=== PATIENT | female | born 1955 | race Caucasian/White ===

== ENCOUNTER 2018-02-01 02:19 | Inpatient (IN) | payer SELFPAY ==
[~2018-02-01] VITALS: Ht 157.5 cm; Wt 91.6 kg
[2018-02-01] VITALS (34 sets, daily range): BP systolic 81–198; BP diastolic 40–114
[2018-02-01] MEDS ORDERED: HEParin DRIP 25000 UNIT/500ML 500 ML IV SCH (03:29)
[2018-02-01 03:53] LABS: BASOPHILS % (AUTO) 0 % (0-10); EOSINOPHILS # (AUTO) 0.2 10^3/uL (0.0-0.3); EOSINOPHILS % (AUTO) 3 % (0-10); HEMATOCRIT 38 % (35-52); HEMOGLOBIN 13.3 G/DL (11.5-16.0); LYMPHOCYTES # (AUTO) 1.3 X 10^3 (1.0-4.0); LYMPHOCYTES % (AUTO) 16 % (12-44); MEAN CORPUSCULAR HEMOGLOBIN 32 PG (25-34); MEAN CORPUSCULAR HGB CONC 35 G/DL (32-36); MEAN CORPUSCULAR VOLUME 91 FL (80-99); MEAN PLATELET VOLUME 10.6 FL (7.4-10.4); MONOCYTES # (AUTO) 0.7 X 10^3 (0.0-1.0); MONOCYTES % (AUTO) 8 % (0-12); NEUTROPHILS # (AUTO) 6.2 X 10^3 (1.8-7.8); NEUTROPHILS % (AUTO) 74 % (42-75); PLATELET COUNT 104 10^3/uL (130-400); RED BLOOD COUNT 4.22 10^6/uL (4.35-5.85); RED CELL DISTRIBUTION WIDTH 13.5 % (10.0-14.5); WHITE BLOOD COUNT 8.4 10^3/uL (4.3-11.0)
[2018-02-01 04:18] LABS: BUN/CREATININE RATIO 21; CALCIUM 8.7 MG/DL (8.5-10.1); CARBON DIOXIDE 19 MMOL/L (21-32); CHLORIDE 109 MMOL/L (98-107); CREATININE SERUM 1.31 MG/DL (0.60-1.30); GFR ESTIMATED 41; GLUCOSE 155 MG/DL (70-105); MAGNESIUM 1.9 MG/DL (1.8-2.4); PHOSPHORUS 3.7 MG/DL (2.3-4.7); POTASSIUM 3.8 MMOL/L (3.6-5.0); SODIUM 140 MMOL/L (135-145)
[2018-02-01] MEDS ORDERED: LABETALOL HCL 20 MG/4 ML VIAL IV ONE (04:35)
--- NOTE | 2018-02-01 05:44 | Pulmonary Consultation ---
History of Present Illness History of Present Illness Date of Consultation 02/01/18 05:33 Date of Admission Allergies and Home Medications Allergies Coded Allergies: No Known Drug Allergies (Unverified , 02/01/18) Past Aqkbmyp-Bchird-Xexbru Hx Patient Social History Alcohol Use: Denies Use Recreational Drug Use: No Smoking Status: Current Everyday Smoker Type Used: Cigarettes Recent Foreign Travel: No Contact w/Someone Who Travel: No Recent Infectious Disease Expo: No Recent Hopitalizations: No Immunizations Up To Date Date of Pneumonia Vaccine: Mar 09, 2016 Seasonal Allergies Seasonal Allergies: No Past Medical History Surgeries: Yes Respiratory: No Neurological: No Sexually Transmitted Disease: No HIV/AIDS: No Genitourinary: No Gastrointestinal: No Musculoskeletal: No Endocrine: Yes (TYPE 2 DM) Are Your Blood Sugars Over 250: Yes HEENT: No Cancer: No Psychosocial: No Integumentary: Yes Psoriasis Blood Disorders: No Adverse Reaction/Blood Tranf: No Sepsis Event Evaluation Height, Weight, BMI Height: 5'2.00" Weight: 185lbs. 0.0oz. 83.107072fx; 33.8 BMI Method: Exam Exam Vital Signs Date Time Temp Pulse Resp B/P (MAP) Pulse Ox O2 Delivery O2 Flow Rate FiO2 02/01/18 04:45 81 28 143/96 (112) 96 Nasal Cannula 2.00 02/01/18 04:30 94 32 198/101 (133) 96 Nasal Cannula 2.00 02/01/18 04:15 94 24 189/100 (129) 96 Nasal Cannula 2.00 02/01/18 04:10 96 Nasal Cannula 2.00 02/01/18 04:00 96 Nasal Cannula 2.00 02/01/18 04:00 92 27 182/114 (136) 97 Nasal Cannula 2.00 02/01/18 03:45 93 20 178/92 (120) 97 Nasal Cannula 2.00 02/01/18 03:30 93 28 183/102 (129) 96 Nasal Cannula 2.00 02/01/18 03:24 97.8 02/01/18 03:18 93 18 178/108 (131) 97 Nasal Cannula 2.00 02/01/18 03:15 95 Height & Weight Height: 5'2.00" Weight: 185lbs. 0.0oz. 83.721365wd; 33.8 BMI Method: Results Lab Laboratory Tests 02/01/18 03:43 Assessment/Plan Assessment/Plan CP -Transferred here from [facility] -Troponin here is negative ordered x 3 HTN -s/p Labetalol CAD with hx of [place] Tobacco use WIL BARTON DO Feb 01, 2018 05:44
[2018-02-01 06:13] LABS: CHOLESTEROL 185 MG/DL (< 200); HDL CHOLESTEROL 35 MG/DL (40-60); TRIGLYCERIDES 182 MG/DL (<150); VLDL CHOLESTEROL 36 MG/DL (5-40)
[2018-02-01] MEDS ORDERED: FLU QUADRIvalent (5+ YOA) 2018-2019 (AFLURIA) 0.5 ML IM ONE (07:00)
[2018-02-01] MEDS ORDERED: CATHETER FLUSH 10 ML SYR IV PRN (07:00)
[2018-02-01] MEDS ORDERED: NITROGLYCERIN 0.4 MG SL TABS BTL 25'S SL PRN (07:00)
--- NOTE | 2018-02-01 07:46 | Diagnostic Imaging Report ---
INDICATION: Myocardial infarction. Upright portable AP view of the chest is obtained. There is no previous study available at this time for comparison. FINDINGS: There is mild cardiomegaly and pulmonary venous congestion. Interstitial markings are prominent throughout the lungs. There is no evidence of pneumothorax or significant pleural fluid. IMPRESSION: Cardiomegaly and mild pulmonary venous congestion. Prominent interstitial markings could be acute or chronic. This may represent interstitial edema in setting of recent myocardial infarction and radiographic followup would be of use. Dictated by: Dictated on workstation # [id number]
[2018-02-01] MEDS: POTASSIUM CL 10MEQ/50ML IVPB 50 ML IV SCH (07:54)
[2018-02-01] MEDS: KCL 20 MEQ TAB (K-DUR) PO SCH (07:54)
[2018-02-01] MEDS: MAGNESIUM 1 GM/100 ML IVPB 100 ML IV SCH (07:54)
[2018-02-01] MEDS: inSUlin ASPART (NovoLOG) 1 UNIT/0.01 ML (CHARGE PER UNIT) SC SCH ×3 (07:55→17:46)
[2018-02-01] MEDS ORDERED: LORazepam 1 MG (ATIVAN) TAB ONE (08:56)
[2018-02-01] MEDS ORDERED: LORazepam 1 MG (ATIVAN) TAB PO ONE (09:00)
[2018-02-01 09:15] LABS: AMPHETAMINE SCREEN, URINE NEGATIVE (NEGATIVE); BARBITURATE SCREEN URINE NEGATIVE (NEGATIVE); BENZODIAZEPINES SCREEN URINE NEGATIVE (NEGATIVE); CANNABINOID SCREEN, URINE NEGATIVE (NEGATIVE); COCAINE SCREEN URINE NEGATIVE (NEGATIVE); METHADONE STAT NEGATIVE (NEGATIVE); METHAMPHETAMINE SCREEN URINE S NEGATIVE (NEGATIVE); OPIATE SCREEN URINE NEGATIVE (NEGATIVE); OXYCODONE STAT NEGATIVE (NEGATIVE); PROPOXYPHENE STAT NEGATIVE (NEGATIVE); TRICYCLIC ANTIDEPRESSANTS SCRE POSITIVE (NEGATIVE)
[2018-02-01] MEDS ORDERED: LOVA20TA2 PO (09:23)
[2018-02-01] MEDS ORDERED: FURO40TA4 PO (09:23)
[2018-02-01] MEDS ORDERED: LEVO88TA54 PO (09:23)
[2018-02-01] MEDS ORDERED: ISM60TCR PO (09:23)
[2018-02-01] MEDS ORDERED: EUCA1LOZ28 MM (09:32)
[2018-02-01] MEDS ORDERED: METO-370 PO (09:32)
[2018-02-01] MEDS ORDERED: OMG1KC PO (09:32)
[2018-02-01] MEDS ORDERED: NFBIOT1000 PO (09:32)
[2018-02-01] MEDS ORDERED: CALC-6 PO (09:32)
[2018-02-01] MEDS ORDERED: AMIT100T2 PO (09:32)
[2018-02-01] MEDS ORDERED: LISI-552 PO (09:32)
[2018-02-01] MEDS ORDERED: POTA10TA36 PO (09:43)
[2018-02-01] MEDS ORDERED: GABA-486 PO (09:43)
[2018-02-01] MEDS ORDERED: INSU100I10 SQ (09:44)
[2018-02-01] MEDS ORDERED: METF-399 PO (09:44)
[2018-02-01] MEDS ORDERED: INSU100I23 SQ (09:49)
--- NOTE | 2018-02-01 10:34 | Consultation-Cardiology ---
HPI-Cardiology Cardiology Consultation: Date of Consultation 02/01/18 Date of Admission Attending Physician Blake Paul MD Admitting Physician Sarah,Local Physician Consulting Physician Jd MERINO MD HPI: Time Seen by a Provider: 08:10 Chief Complaint: Chest pain, shortness of breath This is a 62-year-old lady who presented to [facility] with complains of chest pain. She has significant history of active smoking, diabetes, hyperlipidemia. She also has history of COPD. She also complained of resting discomfort in both lower extremities. According to the patient she is had previous history of TX but no stents were placed. She had a prolonged episode of chest pain. Substernal. Moderate intensity. No significant radiation. No significant exacerbating or relieving factors. She is also significantly short of breath and restless. Review of Systems-Cardiology Review of Systems Constitutional: As described under HPI; No As described under HPI, No no symptoms reported, No chills, No fever, No lightheadedness Eyes: No As described under HPI, No no symptoms reported, No blindness, No blurred vision, No contact lenses, No drainage, No decreased acuity, No foreign body sensation, No pain, No vision change Ears/Nose/Throat: No As described under HPI, No no symptoms reported, No chronic hearing loss, No ear discharge, No ear pain, No nasal drainage, No ulcerations Respiratory: No no symptoms reported; As described under HPI; No As described under HPI, No cough, No orthopnea; shortness of breath; No SOB with excertion Cardiovascular: No no symptoms reported; As described under HPI; No As described under HPI; chest pain; No edema, No irregular heart rate, No lightheadedness, No palpitations Gastrointestinal: No no symptoms reported, No As described under HPI, No abdomen distended, No abdominal pain, No blood streaked bowels, No constipation , No diarrhea, No nausea, No vomiting, No stool coloration changes Genitourinary: No As described under HPI, No burning, No dysuria, No discharge , No frequency, No flank pain, No hematuria, No urgency : Yes : No Musculoskeletal: No no symptoms reported, No As describe under HPI, No back pain, No gout, No joint pain, No joint swelling, No muscle pain, No muscle stiffness, No neck pain, No other Skin: No no symptoms reported, No As described under HPI, No change in color, No change in hair/nails, No dryness, No lesions, No lumps, No rash, No other, No skin related problems, No ulcerations, No rash on exposed areas, No ulcerations on exposed areas Psychiatric/Neurological: As described under HPI; No anxiety, No depression, No seizure, No focal weakness, No syncope Hematologic: No bleeding abnormalities FWJ-Ncfoom-Rnlacq Hx Patient Social History Alcohol Use: Denies Use Recreational Drug Use: No Smoking Status: Current Everyday Smoker Type Used: Cigarettes Recent Foreign Travel: No Recent Infectious Disease Expo: No Physical Abuse Screen: No Sexual Abuse: No Immunizations Up To Date Date of Pneumonia Vaccine: Mar 09, 2016 Past Medical History PMH As described under Assessment. Allergies and Home Medications Allergies Coded Allergies: No Known Drug Allergies (Unverified , 02/01/18) Home Medications Amitriptyline HCl 100 Mg Tablet, 100 MG PO HS, (Reported) Biotin 1,000 Mcg Tablet, 1,000 MCG PO DAILY, (Reported) Calcium Carbonate/Vitamin D3 1 Each Tablet, 1 TAB PO DAILY, (Reported) Eucalyptus/Menthol 1 Each Lozenge, 1 ELVA MM Q2H PRN for COUGH, (Reported) Furosemide 40 Mg Tablet, 40 MG PO DAILY, (Reported) LAST FILLED #30 09-14-17 Gabapentin 100 Mg Capsule, 300 MG PO DAILY PRN for NERVE PAIN, (Reported) Insulin Glargine,Hum.rec.anlog 100 Unit/1 Ml Insuln.pen, 40 UNIT SQ BID, ( Reported) Insulin Lispro 100 Unit/1 Ml Insuln.pen, 40 UNIT SQ AC, (Reported) Isosorbide Mononitrate 60 Mg Tab, 60 MG PO DAILY, (Reported) Levothyroxine Sodium 88 Mcg Tablet, 88 MCG PO DAILY, (Reported) Lisinopril 20 Mg Tablet, 20 MG PO DAILY, (Reported) Lovastatin 20 Mg Tablet, 20 MG PO HS, (Reported) Metoprolol Succinate 50 Mg Tab.er.24h, 50 MG PO BID, (Reported) Wampum 3 Polyunsat Fatty Acids 1,000 Mg Cap, 1,000 MG PO DAILY, (Reported) Potassium Chloride 10 Meq Tab.er.prt, 10 MEQ PO DAILY, (Reported) LAST FILLED #30 09-07-17 Patient Home Medication List Home Medication List Reviewed: Yes Physical Exam-Cardiology Physical Exam Vital Signs/I&O 02/01/18 02/01/18 02/01/18 02/01/18 07:00 07:00 08:00 08:00 Pulse 88 89 93 Resp 21 15 B/P (MAP) 197/106 (136) 181/102 (128) Pulse Ox 91 90 93 O2 Delivery Nasal Cannula Nasal Cannula Nasal Cannula O2 Flow Rate 2.00 2.00 2.00 02/01/18 02/01/18 02/01/18 02/01/18 08:29 09:00 10:00 10:20 Temp 97.3 Pulse 93 93 73 Resp 21 21 28 B/P (MAP) 195/111 (139) 195/111 (139) Pulse Ox 93 97 O2 Delivery Nasal Cannula Nasal Cannula Nasal Cannula O2 Flow Rate 2.00 2.00 2.00 40.00 02/01/18 02/01/18 02/01/18 02/01/18 10:31 11:00 12:00 12:00 Pulse 101 96 Resp 28 27 B/P (MAP) 181/92 (121) 170/78 (108) Pulse Ox 98 O2 Delivery NIV Bilevel NIV Bilevel NIV Bilevel NIV Bilevel O2 Flow Rate 40.00 40.00 40.00 40.00 02/01/18 02/01/18 02/01/18 02/01/18 12:01 13:00 13:00 13:27 Temp 97.7 Pulse 90 91 88 Resp 28 22 B/P (MAP) 147/75 (99) Pulse Ox 97 O2 Delivery NIV Bilevel O2 Flow Rate 40.00 40.00 02/01/18 02/01/18 02/01/18 02/01/18 13:47 14:00 14:47 15:00 Temp 96.8 Pulse 87 79 79 Resp 17 21 20 B/P (MAP) 152/78 (102) 133/61 (85) Pulse Ox 98 100 O2 Delivery NIV Bilevel NIV Bilevel NIV Bilevel O2 Flow Rate 40.00 40.00 40.00 40.00 02/01/18 02/01/18 02/01/18 16:00 16:13 16:15 Pulse 82 87 Resp 17 16 B/P (MAP) 133/71 (91) Pulse Ox 98 100 O2 Delivery NIV Bilevel Mechanical Ventilator O2 Flow Rate 40.00 80.00 FiO2 80 Capillary Refill : Constitutional: AAO x 3, apparent distress HEENT: No PERRL, No normal ENT inspection, No TMs normal, No pharynx normal, No scleral icterus (R), No scleral icterus (L), No pale conjunctivae (R), No pale conjunctivae (L), No photophobia, No TM abnormal (R), No TM abnormal (L), No pharyngeal erythema, No tonsillar exudate, No other, No discharge, No EOMI, No hearing is well preserved, No hard of hearing, No oral hygience is good, No ulceration, No xanthelasmas are seen Neck: No non-tender, No full range of motion, No supple, No normal inspection, No carotid bruit, No limited range of motion, No lymphadenopathy (R), No lymphadenopathy (L), No tender lateral, No tender midline, No thyromegaly, No other, No carotid pulses are 2 + bilaterally, No with good upstrokes Respiratory: accessory muscle use, chest is bilaterally symmetric, other ( decreased air entry bilaterally) Cardiovascular: regular rate-rhythm; No irregularly irregular, No extra beats, No parasternal heave is noted, No JVD, No edema, No bradycardia, No tachycardia , No point of maximal impulse, No cardiac thrills are palpable; S1 and S2; No gallop/S3, No gallop/S4, No diastolic murmur, No systolic murmur, No friction rub, No click, No other Gastrointestinal: No tender, No soft, No round, No distended, No pulsatile mass , No organomegaly, No guarding, No rebound, No tenderness, No hernia, No mass, No audible bowel sounds, No abnormal bowel sounds, No abdominal bruits, No spleenomegaly, No other Rectal: deferred Extremities: No normal range of motion, No non-tender, No normal inspection, No pedal edema, No calf tenderness, No normal capillary refill, No pelvis stable , No calf tenderness, No inflammation, No pedal edema, No slow capillary refill , No swelling, No other, No abrasion, No clubbing, No cyanosis, No ecchymosis, No laceration, No no lower extremity edema bilateral, No significant edema, No tenderness, No wound Neurologic/Psychiatric: no motor/sensory deficits, alert, normal mood/affect Skin: No normal color, No warm/dry, No cyanosis, No cool, No diaphoresis, No damp, No ecchymosis, No jaundice, No mottled, No pallor, No rash, No tattoos/ piercings, No ulcerations, No rash on exposed areas, No ulcerations on exposed areas, No other Data Review Labs Laboratory Tests 02/01/18 03:43: White Blood Count 8.4, Red Blood Count 4.22L, Hemoglobin 13.3, Hematocrit 38, Mean Corpuscular Volume 91, Mean Corpuscular Hemoglobin 32, Mean Corpuscular Hemoglobin Concent 35, Red Cell Distribution Width 13.5, Platelet Count 104L, Mean Platelet Volume 10.6H, Neutrophils (%) (Auto) 74, Lymphocytes (%) (Auto) 16 , Monocytes (%) (Auto) 8, Eosinophils (%) (Auto) 3, Basophils (%) (Auto) 0, Neutrophils # (Auto) 6.2, Lymphocytes # (Auto) 1.3, Monocytes # (Auto) 0.7, Eosinophils # (Auto) 0.2, Basophils # (Auto) 0.0, Sodium Level 140, Potassium Level 3.8, Chloride Level 109H, Carbon Dioxide Level 19L, Anion Gap 12, Blood Urea Nitrogen 28H, Creatinine 1.31H, Estimat Glomerular Filtration Rate 41, BUN/ Creatinine Ratio 21, Glucose Level 155H, Calcium Level 8.7, Phosphorus Level 3.7 , Magnesium Level 1.9, Troponin I < 0.30, Triglycerides Level 182H, Cholesterol Level 185, LDL Cholesterol Direct 127, VLDL Cholesterol 36, HDL Cholesterol 35L 02/01/18 06:47: Activated Partial Thromboplast Time 77H 02/01/18 07:40: Urine Opiates Screen NEGATIVE, Urine Oxycodone Screen NEGATIVE, Urine Methadone Screen NEGATIVE, Urine Propoxyphene Screen NEGATIVE, Urine Barbiturates Screen NEGATIVE, Ur Tricyclic Antidepressants Screen POSITIVEH, Urine Phencyclidine Screen NEGATIVE, Urine Amphetamines Screen NEGATIVE, Urine Methamphetamines Screen NEGATIVE, Urine Benzodiazepines Screen NEGATIVE, Urine Cocaine Screen NEGATIVE, Urine Cannabinoids Screen NEGATIVE 02/01/18 11:13: Glucometer 295H 02/01/18 12:55: Activated Partial Thromboplast Time 46H, Troponin I 0.31*H 02/01/18 16:45: White Blood Count 10.0, Red Blood Count 3.95L, Hemoglobin 12.5, Hematocrit 37, Mean Corpuscular Volume 93, Mean Corpuscular Hemoglobin 32, Mean Corpuscular Hemoglobin Concent 34, Red Cell Distribution Width 13.5, Platelet Count 111L, Mean Platelet Volume 10.9H, Neutrophils (%) (Auto) 89H, Lymphocytes (%) (Auto) 6L, Monocytes (%) (Auto) 5, Eosinophils (%) (Auto) 0, Basophils (%) (Auto) 0, Neutrophils # (Auto) 8.9H, Lymphocytes # (Auto) 0.6L, Monocytes # (Auto) 0.5, Eosinophils # (Auto) 0.0, Basophils # (Auto) 0.0, Neutrophils % (Manual) 86, Lymphocytes % (Manual) 9, Monocytes % (Manual) 4, Eosinophils % (Manual) 1, Basophils % (Manual) 0, Band Neutrophils 0, Blood Morphology Comment NORMAL, Sodium Level 139, Potassium Level 4.6, Chloride Level 110H, Carbon Dioxide Level 20L, Anion Gap 9, Blood Urea Nitrogen 26H, Creatinine 1.27, Estimat Glomerular Filtration Rate 43, BUN/Creatinine Ratio 20, Glucose Level 205H, Calcium Level 8.0L, Corrected Calcium 8.6, Total Bilirubin 0.4, Aspartate Amino Transf (AST/SGOT) 18, Alanine Aminotransferase (ALT/SGPT) 14, Alkaline Phosphatase 64, Total Protein 6.3L, Albumin 3.2 ECG Impression ECG Initial ECG Rhythm: Normal Sinus Comment Widespread ST depression. A/P-Cardiology Assessment/Admission Diagnosis Non-STEMI, Acute respiratory failure, Severe COPD, Previous history of CAD/TX, Smoking, Hypertension, Hyperlipidemia, Severe PAD Plan Non-STEMI, will require coronary angiography. Informed consent was taken from the patient and daughter. Continue aspirin, Plavix, heparin. Acute respiratory failure, likely due to severe COPD. Check echocardiogram. Severe COPD, defer to Dr. Guillory. Previous history of CAD/TX, dual antiplatelet therapy. Smoking, CESSATION was strongly recommended. Hypertension, Hyperlipidemia, Severe PAD, bilateral lower extremity arterial ultrasound. Critical patient. Total time taken 30 minutes. Thank you for your consultation. Please call me if you have any questions. Xi Merino MD, FACP, FACC, FSCAI, FHRS, CCDS Interventional Cardiology Cardiac Electrophysiology Vascular Medicine and Endovascular Interventions Clinical Quality Measures DVT/VTE Risk/Contraindication: Risk Factor Score Per Nursin RFS Level Per Nursing on Admit: 2=Moderate Jd MERINO MD Feb 01, 2018 10:34 am
--- NOTE | 2018-02-01 10:47 | History & Physical-Hospitalist ---
History of Present Illness HPI/Chief Complaint The patient is a 62-year-old white female. 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 Her daughter states that she has chest pain and a history of heart disease. She took 3 nitroglycerin and then went to bed. At about 0000 hours she checked on her and found her to be confused. She then called the ambulance and sent her here. She states that her mother has no insurance and has not had regular medical attention. She states that her mother has not had much energy for life since her about 10 years ago. She has diabetes, hypertension, strong family history of cardiac disease, and smokes a pack or more of cigarettes per day. The daughter states that her mother has had episodes of relative confusion at intervals over the past year. In addition she has had multiple falls and exhibits poor balance and coordination. This morning when she checked on her while in bed is clearly confused and tried to eat a remote which she apparently thought to be a cookie. Date Seen 02/01/18 Time Seen by a Provider: 10:42 Attending Physician Blake Garcia MD PCP No,Local Physician Referring Physician Date of Admission Feb 01, 2018 at 03:07 Home Medications & Allergies Home Medications Reviewed patient Home Medication Reconciliation performed by pharmacy medication reconciliations testing and regulating technician and/or nursing. Patients Allergies have been reviewed. Allergies Allergies Coded Allergies No Known Drug Allergies ([id number]/26/18) Past Lzlozbp-Nbpjuq-Pivjic Hx Patient Social History Alcohol Use: Denies Use Recreational Drug Use: No Smoking Status: Current Everyday Smoker Type Used: Cigarettes Physical Abuse Screen: No Sexual Abuse: No Recent Foreign Travel: No Contact w/other who traveled: No Recent Hopitalizations: No Recent Infectious Disease Expo: No Immunizations Up To Date Date of Pneumonia Vaccine: Mar 09, 2016 Seasonal Allergies Seasonal Allergies: No Past Medical History Sexually Transmitted Disease: No HIV/AIDS: No Are Your Blood Sugars Over 250: Yes Skin/Integumentary: Psoriasis History of Blood Disorders: No Adverse Reaction to Blood Umanzor: No Review of Systems Constitutional: see HPI, other (the patient moves all extremities but did not answer any questions.) Physical Exam Physical Exam Vital Signs Vital Signs - First Documented 02/01/18 02/01/18 02/01/18 03:15 03:18 03:24 Temp 97.8 Pulse 95 Resp 18 B/P (MAP) 178/108 (131) Pulse Ox 97 O2 Delivery Nasal Cannula O2 Flow Rate 2.00 Capillary Refill : Height, Weight, BMI Height: 5'2.00" Weight: 186lbs. 0.0oz. 84.778077hq; 33.8 BMI Method: General Appearance: Other Eyes: Bilateral Eye Normal Inspection, Bilateral Eye PERRL HEENT: Normal ENT Inspection Neck: Normal Inspection Respiratory: Chest Non Tender, Lungs Clear, Normal Breath Sounds, No Accessory Muscle Use, No Respiratory Distress Cardiovascular: Regular Rate, Rhythm, No Edema, No Gallop, No JVD, No Murmur, Normal Peripheral Pulses Gastrointestinal: Other (obese. No masses or tenderness) Back: Normal Inspection Extremity: Other Results Results/Procedures Labs Laboratory Tests 02/01/18 03:43 Patient resulted labs reviewed. Clinical Quality Measures DVT/VTE Risk/Contraindication: Risk Factor Score Per Nursin RFS Level Per Nursing on Admit: 2=Moderate BLAKE GARCIA MD Feb 01, 2018 10:47
--- NOTE | 2018-02-01 12:14 | Diagnostic Imaging Report ---
PROCEDURE: US Venous Lower Ext John. TECHNIQUE: Multiple real-time grayscale images were obtained over the lower extremities in various projections, bilaterally. Additional duplex Doppler and color Doppler images were also obtained. INDICATION: Lower extremity mottling. FINDINGS: There is no evidence of a right or left lower extremity DVT. Both lower extremity deep venous systems show normal compressibility with normal response to augmentation and Valsalva. No fluid collection or mass is seen. IMPRESSION: No evidence of right or left lower extremity DVT. Dictated by: Dictated on workstation # [id number]
--- NOTE | 2018-02-01 13:42 | Diagnostic Imaging Report ---
PROCEDURE: US Bilateral lower extremity arterial. TECHNIQUE: Multiple Real-time grayscale images are obtained through both lower extremity arterial systems with color Doppler imaging and color Doppler spectral analysis. INDICATION: Mottled lower extremities. FINDINGS: Both common femoral arteries are patent and show biphasic waveforms. Biphasic waveforms in the deep profunda are seen bilaterally as well. The proximal left SFA is monophasic with dampened velocities. There is occlusion in the left proximal to mid SFA extending 7-8 cm. There appears to be reconstitution distally with monophasic flow in the distal left SFA and popliteal. There is monophasic flow in the posterior tibial and dorsalis pedis arteries as well on the left. On the right, the proximal SFA is occluded. There is reconstitution distally with biphasic waveforms. There are monophasic waveforms in the popliteal. The occlusion extends approximately 15 cm on the right. There are monophasic waveforms and dampened velocities in the right posterior tibial and dorsalis pedis. IMPRESSION: Bilateral SFA occlusions with reconstitution distally. There are some dampened velocities at the ankles bilaterally with monophasic waveforms but there does appear to be two-vessel flow bilaterally at the ankles. Dictated by: Dictated on workstation # [id number]
[2018-02-01] MEDS ORDERED: HALOPERIDOL 5 MG/ML (HALDOL) AMP IV PRN (15:15)
[2018-02-01] MEDS ORDERED: PROPOFOL DRIP (ICU) 100 ML IV ONE ×2 (15:28→18:30)
[2018-02-01] MEDS ORDERED: MIDAZOLAM 5 MG/5 ML (VERSED) VIAL INJ ONE (15:37)
[2018-02-01] MEDS ORDERED: fentaNYL INJECTION 100 MCG/2 ML AMP INJ ONE (15:37)
--- NOTE | 2018-02-01 15:37 | Pulmonary Progress Note ---
Standard Progress Note Progress Notes Time Seen by Provider: 15:29 I was called by Dr. Merino about patients respiratory status. He discussed with family and they are okay with short term ventilation but not snf ventilation. I also discussed with patient's family with RN at bedside and they are in agreement with short term ventilation only. RT has not been able to get an ABG secondary to patient's agitation. Assessment & Plan Acute on chronic respiratory failure -Currently on BiPAP - pt is not able to answer questions -unresponsive except to heavy stimulation probably secondary to Ativan and probable C02 narcosis -will proceed with intubation CP -Transferred here from [facility] -Troponin here is negative ordered x 3 -Dr. Merino will do cath tomorrow if patient is medically stable enough for it. PVD -venous and arterial dopplers of LE bilaterally show complete occlusion of the SFA bilaterally. -Cardiology is following HTN -s/p Labetalol CAD with hx of [place] Tobacco use Discussed with Dr. Merino, Dr. Paul, medical staff, and family regarding plan of care. Total time spent with patient not including procedures or initial consult this AM is 60min. Critical Care: Critically Ill Patient WIL BARTON DO Feb 01, 2018 15:37
[2018-02-01] MEDS ORDERED: NS IV 1000 ML 1,000 ML ONE (15:43)
[2018-02-01] MEDS ORDERED: RT-ALBUTEROL/IPRATROPIUM 3 ML (DUONEB) VIAL INH PRN (16:45)
[2018-02-01] MEDS ORDERED: PIPERACILLIN/TAZO 4.5 GM/NS 100 ML IV NR ×2 (16:45)
--- NOTE | 2018-02-01 16:57 | Pulmonary Procedures ---
Pulmonary Procedures Date of Procedure Date of Service: Feb 01, 2018 Lumen: triple (US guided ) Central Line Procedure: betadine prep, sterile drapes applied, sterile dressing applied Position: internal jugular (R) Anesthesia: local Volume Anesthetic (ccs): 5 Complications: none Post Position: sutured, good blood return, position confirmed w/ CXR WIL BARTON DO Feb 01, 2018 16:57
--- NOTE | 2018-02-01 17:00 | Pulmonary Procedures ---
Pulmonary Procedures Date of Procedure Date of Service: Feb 01, 2018 Time of Intubation: 16:59 Intubation Method: orotracheal Tube Size: 8 Medications: Fentanyl, Propofol, Versed Positive End Tide CO2: Yes Breath Sounds after Intubation: bilateral-equal Intubation Complications: no complications Post Intubation Xray: Yes (with Glidoscope) WIL BARTON DO Feb 01, 2018 16:59
[2018-02-01 17:05] LABS: BASOPHILS % (AUTO) 0 % (0-10); EOSINOPHILS % (AUTO) 0 % (0-10); HEMATOCRIT 37 % (35-52); HEMOGLOBIN 12.5 G/DL (11.5-16.0); LYMPHOCYTES # (AUTO) 0.6 X 10^3 (1.0-4.0); LYMPHOCYTES % (AUTO) 6 % (12-44); MEAN CORPUSCULAR HEMOGLOBIN 32 PG (25-34); MEAN CORPUSCULAR HGB CONC 34 G/DL (32-36); MEAN CORPUSCULAR VOLUME 93 FL (80-99); MEAN PLATELET VOLUME 10.9 FL (7.4-10.4); MONOCYTES # (AUTO) 0.5 X 10^3 (0.0-1.0); MONOCYTES % (AUTO) 5 % (0-12); NEUTROPHILS # (AUTO) 8.9 X 10^3 (1.8-7.8); NEUTROPHILS % (AUTO) 89 % (42-75); PLATELET COUNT 111 10^3/uL (130-400); RED BLOOD COUNT 3.95 10^6/uL (4.35-5.85); RED CELL DISTRIBUTION WIDTH 13.5 % (10.0-14.5)
[2018-02-01 17:18] LABS: ALBUMIN 3.2 GM/DL (3.2-4.5); BILIRUBIN,TOTAL 0.4 MG/DL (0.1-1.0); CREATININE SERUM 1.27 MG/DL (0.60-1.30); POTASSIUM 4.6 MMOL/L (3.6-5.0); TOTAL PROTEIN 6.3 GM/DL (6.4-8.2)
[2018-02-01] MEDS ORDERED: NS IV 1000 ML 2,000 ML ONE (17:20)
[2018-02-01 17:35] LABS: BAND NEUTROPHILS 0 %; BASOPHILS % (MANUAL) 0 %; EOSINOPHILS % (MANUAL) 1 %; LYMPHOCYTES % (MANUAL) 9 %; MONOCYTES % (MANUAL) 4 %; NEUTROPHILS % (MANUAL) 86 %; RBC MORPH NORMAL
--- NOTE | 2018-02-01 17:50 | Diagnostic Imaging Report ---
INDICATION: Line placement. COMPARISON: Earlier same day. FINDINGS: Single frontal radiographic view of the chest was obtained and demonstrates interval placement of endotracheal tube, tip of which terminates at the clavicular heads. Gastric tube is also seen. Tip terminates in the stomach. Side port appears to be just above the hiatus. Right internal jugular central venous catheter is also identified with tip in the high SVC. There is persistent nclkhfdv-ms-eykukr cardiomegaly and moderate pulmonary vascular congestion. There is also persistent diffuse prominence of the interstitium. No large effusion or pneumothorax is seen. IMPRESSION: 1. Lines and tubes as above. 2. Persistent cardiomegaly with pulmonary vascular congestion and probable interstitial pulmonary edema. Dictated by: Dictated on workstation # [id number]
[2018-02-01] MEDS: ENOXAPARIN 80 MG/0.8 ML (LOVENOX) SYR SC SCH (18:03)
[2018-02-01] MEDS: PROPOFOL DRIP (ICU) 100 ML IV SCH ×2 (18:40→21:25)
--- NOTE | 2018-02-01 18:40 | Anesthesia-Procedure Note ---
Procedures/Interventions Procedure Start/Stop/Diagnosis Date of Procedure: Feb 01, 2018 Start Time: 18:05 Referring Physician: Pastora Brief History intubated/sedated Stop Time: 18:25 Arterial Line Arterial Line Catheter: 20G Type: Radial (left) Procedure: prepped, draped in sterile fashion, good wave-form was obtained, patient tolerated procedure well, no immediate complications, post procedure area cleaned, post procedure dressing applied TARSHA CASE CRNA Feb 01, 2018 18:40
[2018-02-01] MEDS: RT-ALBUTEROL/IPRATROPIUM 3 ML (DUONEB) VIAL INH SCH ×2 (19:35→22:21)
[2018-02-01 20:16] LABS: ABG OXYGEN SATURATION 99 % (94-100); ABG PCO2 47 MMHG (35-45); ABG PO2 120 MMHG (79-93); ABG TCO2 24.1 MMOL/L (21.0-31.0)
[2018-02-01 20:19] LABS: ALLENS TEST ART LINE; INSPIRED O2 50%; PATIENT TEMP 96.5; VENTILATOR YES
--- NOTE | 2018-02-01 20:55 | Diagnostic Imaging Report ---
INDICATION: Altered mental status TECHNIQUE: Routine non contrast-enhanced axial images were obtained from the skull base to the vertex. COMPARISON: None. FINDINGS: The ventricles and cortical sulci are diffusely prominent, compatible with age-related volume loss. There are confluent areas of abnormal, low attenuation in the periventricular white matter. This is consistent with small vessel ischemic changes; age-indeterminate. There is no prior study available for comparison. There is no midline shift or mass-effect. No acute intra-axial hemorrhage is seen. There are no abnormal areas of increased or decreased density to suggest acute hemorrhage or edema. No extra-axial masses or collections are present. The bony calvarium is intact. The visualized paranasal sinuses show scattered bilateral mucosal thickening with air-fluid level in the right maxillary sinus. Findings may be related to indwelling support tubes. The mastoid air cells are clear. IMPRESSION: 1. No acute intracranial abnormality. No CT evidence of mass, acute infarct or intracranial hemorrhage. 2. Small vessel ischemic changes in the periventricular and subcortical white matter; likely chronic. Dictated by: Dictated on workstation # [id number]
--- NOTE | 2018-02-01 21:01 | Diagnostic Imaging Report ---
PROCEDURE: CT chest without contrast. TECHNIQUE: Multiple contiguous axial images were obtained through the chest without the use of intravenous contrast. INDICATION: Respiratory distress. COMPARISON: Chest radiograph from earlier the same day. FINDINGS: Cardiomediastinal structures show moderate cardiomegaly. There is moderate to advanced calcified coronary atherosclerosis. Note is also made of mild to moderate scattered calcified aortic atherosclerosis. There is no large pericardial effusion. There are few scattered prominent appearing, yet subcentimeter mediastinal lymph nodes. Largest is precarinal in location and measures 1 x 1.5 cm. No definite abnormal hilar adenopathy seen on this noncontrast exam. No abnormal axillary lymph nodes are seen. Indwelling endotracheal tube is present with tip terminating just above the julio cesar. Gastric tube tip terminates in the stomach. Side port is at the GE junction. The lung mark show moderate bilateral pleural effusions and associated atelectasis. There are also scattered groundglass densities and septal thickening consistent with crazy paving. Pulmonary nodule or mass may be obscured on this exam. There is suggestion, however, of an 8 mm groundglass density within the anterior margins of the right upper lobe (image 24, series 2). No pneumothorax is seen on either side. Osseous structures show age-related degenerative changes. No acute bony abnormalities are seen. Included portions of the upper abdomen show hyperdense material within the lumen of the gallbladder possibly on the basis of cholelithiasis versus vicarious excretion of contrast. IMPRESSION: 1. Moderate cardiomegaly. 2. Calcified aortic and coronary atherosclerosis as described above. 3. A few borderline prominent mediastinal lymph nodes of uncertain clinical significance or etiology. 4. Moderate bilateral effusions with associated atelectasis. 5. Crazy paving of the lungs suggestive of possible pulmonary edema. 6. An 8 mm groundglass micronodule within the right upper lobe. Please see below for followup recommendations. 7. Cholelithiasis versus vicarious excretion of contrast into the gallbladder PULMONARY NODULE FOLLOW-UP Single nodule: <6 mm: * Low risk patient - no routine follow up * High risk patient - optional at 12 months 6-8 mm in size: * Low risk patient - Ct at 6-12 months, then consider at 18-24 months * High risk patient - Ct at 6-12 months, then at 18-24 months >8 mm * Low risk patient - consider CT at 3 months, PET/CT or tissue sampling * High risk patient - consider CT at 3 months, PET/CT, or tissue sampling (Certain patients at high risk with suspicious nodule morphology, upper lobe location, or both may warrant 12-month follow-up) Multiple nodules: <6 mm: * Low risk patient - no routine follow up * High risk patient - optional CT at 12 months 6-8 mm in size: * Low risk patient - Ct at 3-6 months, then consider CT at 18-24 months * High risk patient - CT at 3-6 months, then at 18-24 months >8 mm: * Low risk patient - CT at 3-6 months, then consider CT at 18-24 months * High risk patient - CT at 3-6 months, then at 18-24 months (Use most suspicious nodule as guide to management. Follow up interval may vary according to size and risk) Subsolid Nodules: <6 mm: * Ground glass - no routine follow up. (In certain suspicious nodules <6 mm, consider follow-up at 2 and 4 years. If solid component(s) or growth develops, consider resection.) * Part solid - no routine follow up. (In practice, part-solid nodules cannot be defined as such until 6mm or greater, and nodules <6 mm do not usually require follow-up. Persistent part-solid nodules with solid components 6mm or greater should be considered highly suspicious) * Multiple - Consider at 3-6 months. If stable, consider CT at 2 and 4 years. (Multiple <6mm pure ground-glass nodules are usually benign, but consider follow-up in selected patients at high risk at 2 and 4 years.) 6 mm or greater: * Ground glass - CT at 6-12 months to confirm persistence, then CT every 2 years until 5 years * Part solid - CT at 3-6 months to confirm persistence. If unchanged and solid component remains <6 mm, annual CT should be performed for 5 years * Multiple - CT at 3-6 months. Subsequent management based on the most suspicious nodule(s). Dictated by: Dictated on workstation # [id number]
--- NOTE | 2018-02-01 21:08 | Diagnostic Imaging Report ---
INDICATION: Endotracheal tube evaluation. COMPARISON: Earlier the same day FINDINGS: Single frontal radiographic view of the chest was obtained and demonstrates interval advancement of indwelling endotracheal tube, the tube now terminates approximately 2 cm above the julio cesar. Gastric tube is also seen with side port likely at the GE junction. Heart size remains enlarged. There is pulmonary vascular congestion and probable interstitial pulmonary edema. Pleural effusion seen on separately performed CT chest are not as conspicuous on this exam. There is no pneumothorax. Right internal jugular central venous catheter is also seen with tip in the high SVC. IMPRESSION: 1. Lines and tubes as above. 2. Cardiomegaly with sequela of CHF including interstitial pulmonary edema. Dictated by: Dictated on workstation # [id number]
[2018-02-01] MEDS: PANTOPRAZOLE 40 MG (PROTONIX) VIAL IV SCH (21:53)
[2018-02-01] MEDS ORDERED: LACTATED RINGERS 1,000 ML IV ONE (23:22)
[2018-02-01] MEDS: DEXMEDETOMIDINE INJECTION 200 MCG in NS (IVPB) 50 ML IV SCH (23:34)
[2018-02-01] MEDS: PIPERACILLIN SODIUM/TAZOBACTAM 4.5 GM in NS (IVPB) 100 ML IV SCH (23:36)
[2018-02-01] MEDS ORDERED: LACTATED RINGERS 500 ML IV ONE (23:45)
[2018-02-02] VITALS (32 sets, daily range): BP systolic 98–194; BP diastolic 46–93
[2018-02-02] MEDS: inSUlin ASPART (NovoLOG) 1 UNIT/0.01 ML (CHARGE PER UNIT) SC SCH ×4 (00:22→19:42)
[2018-02-02] MEDS: DEXMEDETOMIDINE INJECTION 200 MCG in NS (IVPB) 50 ML IV SCH ×2 (01:59→06:21)
[2018-02-02] MEDS: RT-ALBUTEROL/IPRATROPIUM 3 ML (DUONEB) VIAL INH SCH ×5 (02:50→21:13)
[2018-02-02 03:19] LABS: ABG BASE EXCESS -3.6 MMOL/L (-2.5-2.5); ABG OXYGEN SATURATION 96 % (94-100); ABG PCO2 37 MMHG (35-45); ABG PH 7.37 (7.37-7.43); ABG PO2 70 MMHG (79-93); ABG TCO2 22.3 MMOL/L (21.0-31.0); ALLENS TEST ARTLINE; INSPIRED O2 30%; VENTILATOR YES
[2018-02-02 03:20] LABS: BASOPHILS % (AUTO) 0 % (0-10); EOSINOPHILS # (AUTO) 0.1 10^3/uL (0.0-0.3); EOSINOPHILS % (AUTO) 1 % (0-10); HEMATOCRIT 33 % (35-52); HEMOGLOBIN 11.3 G/DL (11.5-16.0); LYMPHOCYTES # (AUTO) 0.6 X 10^3 (1.0-4.0); LYMPHOCYTES % (AUTO) 9 % (12-44); MEAN CORPUSCULAR HEMOGLOBIN 32 PG (25-34); MEAN CORPUSCULAR HGB CONC 34 G/DL (32-36); MEAN CORPUSCULAR VOLUME 93 FL (80-99); MONOCYTES # (AUTO) 0.5 X 10^3 (0.0-1.0); MONOCYTES % (AUTO) 6 % (0-12); NEUTROPHILS # (AUTO) 6.3 X 10^3 (1.8-7.8); NEUTROPHILS % (AUTO) 85 % (42-75); PLATELET COUNT 91 10^3/uL (130-400); RED BLOOD COUNT 3.56 10^6/uL (4.35-5.85); RED CELL DISTRIBUTION WIDTH 13.6 % (10.0-14.5); WHITE BLOOD COUNT 7.5 10^3/uL (4.3-11.0)
[2018-02-02 03:35] LABS: CALCIUM 8.1 MG/DL (8.5-10.1); CREATININE SERUM 1.68 MG/DL (0.60-1.30); MAGNESIUM 1.8 MG/DL (1.8-2.4); PHOSPHORUS 4.4 MG/DL (2.3-4.7)
[2018-02-02] MEDS: MAGNESIUM 1 GM/100 ML IVPB 100 ML IV SCH (03:45)
[2018-02-02] MEDS: KCL 20 MEQ TAB (K-DUR) PO SCH (03:45)
[2018-02-02] MEDS: POTASSIUM CL 10MEQ/50ML IVPB 50 ML IV SCH (03:45)
[2018-02-02] MEDS: ENOXAPARIN 80 MG/0.8 ML (LOVENOX) SYR SC SCH ×2 (04:01→15:40)
[2018-02-02] MEDS: PROPOFOL DRIP (ICU) 100 ML IV SCH ×3 (05:17→21:52)
[2018-02-02] MEDS: PANTOPRAZOLE 40 MG (PROTONIX) VIAL IV SCH ×2 (06:03→22:20)
[2018-02-02] MEDS: PIPERACILLIN SODIUM/TAZOBACTAM 4.5 GM in NS (IVPB) 100 ML IV SCH ×3 (06:04→22:21)
--- NOTE | 2018-02-02 06:06 | Pulmonary Progress Note ---
Subjective Time Seen by a Provider: 06:28 Subjective/Events-last exam Family at bedside all questions answered. Pt is sedated on vent. Sepsis Event Evaluation Height, Weight, BMI Height: 5'2.00" Weight: 186lbs. 0.0oz. [id number]; 33.8 BMI Method: Exam Exam Vital Signs Date Time Temp Pulse Resp B/P (MAP) Pulse Ox O2 Delivery O2 Flow Rate FiO2 02/02/18 05:17 75 02/02/18 05:00 6 21 121/50 (73) 96 Mechanical Ventilator 30.00 02/02/18 04:00 63 27 120/50 (73) 96 Mechanical Ventilator 30.00 02/02/18 04:00 100 Mechanical Ventilator 30 02/02/18 04:00 96.0 02/02/18 03:00 60 24 113/49 (70) 97 Mechanical Ventilator 30.00 02/02/18 02:50 60 20 96 30 02/02/18 02:00 60 20 112/48 (69) 96 Mechanical Ventilator 30.00 02/02/18 01:00 62 20 113/49 (70) 96 Mechanical Ventilator 30.00 02/02/18 01:00 62 02/02/18 00:20 64 23 98 40 02/02/18 00:00 97.0 Mechanical Ventilator 30.00 02/02/18 00:00 69 19 108/48 (68) 99 Mechanical Ventilator 30.00 02/02/18 00:00 100 Mechanical Ventilator 30 02/01/18 23:00 70 23 81/40 (54) 96 Mechanical Ventilator 40.00 02/01/18 22:25 Mechanical Ventilator 40.00 02/01/18 22:21 70 21 100 50 02/01/18 22:00 70 16 117/54 (75) 100 Mechanical Ventilator 50.00 02/01/18 21:25 71 114/53 02/01/18 21:10 71 25 122/57 (78) 99 Mechanical Ventilator 50.00 02/01/18 21:00 73 25 98 Mechanical Ventilator 50.00 02/01/18 20:10 70 21 100 50 02/01/18 20:00 100 Mechanical Ventilator 50 02/01/18 20:00 73 130/52 (78) 99 Mechanical Ventilator 50.00 02/01/18 20:00 96.5 Mechanical Ventilator 50.00 02/01/18 19:35 77 20 100 60 02/01/18 19:00 74 02/01/18 19:00 74 151/62 (91) 100 Mechanical Ventilator 50.00 02/01/18 18:00 75 123/62 (82) 99 Mechanical Ventilator 80.00 02/01/18 17:34 100 Mechanical Ventilator 02/01/18 17:00 80 106/56 (73) 100 Mechanical Ventilator 80.00 02/01/18 16:15 Mechanical Ventilator 80.00 02/01/18 16:13 87 16 100 80 02/01/18 16:00 82 17 133/71 (91) 98 NIV Bilevel 40.00 02/01/18 16:00 100 Mechanical Ventilator 02/01/18 15:00 79 20 133/61 (85) NIV Bilevel 40.00 02/01/18 14:47 79 21 100 40.00 02/01/18 14:00 87 17 152/78 (102) NIV Bilevel 40.00 02/01/18 13:47 96.8 98 NIV Bilevel 40.00 02/01/18 13:27 88 22 97 40.00 02/01/18 13:00 91 28 147/75 (99) NIV Bilevel 40.00 02/01/18 13:00 90 02/01/18 12:01 97.7 02/01/18 12:00 96 27 170/78 (108) NIV Bilevel 40.00 02/01/18 12:00 98 NIV Bilevel 40.00 02/01/18 11:00 101 28 181/92 (121) NIV Bilevel 40.00 02/01/18 10:31 NIV Bilevel 40.00 02/01/18 10:20 73 28 97 40.00 02/01/18 10:00 93 21 195/111 (139) Nasal Cannula 2.00 02/01/18 09:00 93 21 195/111 (139) Nasal Cannula 2.00 02/01/18 08:29 97.3 93 Nasal Cannula 2.00 02/01/18 08:00 93 Nasal Cannula 2.00 02/01/18 08:00 93 15 181/102 (128) 90 Nasal Cannula 2.00 02/01/18 07:00 89 02/01/18 07:00 88 21 197/106 (136) 91 Nasal Cannula 2.00 I & O 02/02/18 07:00 Intake Total 2100 ml Output Total 910 ml Balance 1190 ml Height & Weight Height: 5'2.00" Weight: 186lbs. 0.0oz. [id number]; 33.8 BMI Method: General Appearance: Other HEENT: Normal ENT Inspection Neck: Normal Inspection Respiratory: Chest Non Tender, Lungs Clear, Normal Breath Sounds, No Accessory Muscle Use, No Respiratory Distress Cardiovascular: Regular Rate, Rhythm, No Edema, No Gallop, No JVD, No Murmur, Normal Peripheral Pulses Extremity: Other Results Lab Laboratory Tests 02/01/18 03:43 02/01/18 16:45 02/02/18 03:10 Assessment/Plan Assessment/Plan Acute on chronic respiratory failure -PT is doing better on ventilator -Start TF after cardiac cath GIB -gastric occult is positive -start Protonix BID IV -monitor CP -Transferred here from [facility], [place] -Troponin here is negative ordered x 3 -Dr. Merino possible cath today PVD -venous and arterial dopplers of LE bilaterally show complete occlusion of the SFA bilaterally. -Cardiology is following HTN -s/p Labetalol CAD with hx of DE Tobacco use GI/DVT PPX -Check gastric occult -Continue protonix Family at bedside all questions answered. Also discussed with medical staff regarding plan of care. Total time spent with patient is 30min. WIL BARTON DO Feb 02, 2018 06:06
[2018-02-02] MEDS: LACTATED RINGERS 1,000 ML IV SCH (06:35)
[2018-02-02] MEDS ORDERED: PANTOPRAZOLE 40 MG (PROTONIX) TAB PO SCH (07:00)
[2018-02-02 07:29] LABS: OCCULT BLOOD,GASTRIC FLUID POSITIVE (NEGATIVE)
--- NOTE | 2018-02-02 07:38 | Diagnostic Imaging Report ---
EXAM: CHEST 1 VIEW, AP/PA ONLY INDICATION: NG tube placement. COMPARISON: Chest radiograph 02/01/2018. FINDINGS: NG tube tip and side-port below the diaphragm overlying the stomach. ETT tip midway between the clavicles and julio cesar. Right IJ CVC upper SVC. Cardiomegaly. Bibasilar atelectasis or infiltrate. Low lung volumes. No acute osseous findings. IMPRESSION: NG tube tip and side-port below the diaphragm, overlying the stomach. Dictated by: Dictated on workstation # [id number]
[2018-02-02 07:39] LABS: BILIRUBIN,URINE NEGATIVE (NEGATIVE); CLARITY,URINE CLEAR; COLOR,URINE YELLOW; GLUCOSE, URINE (UA) 1+ (NEGATIVE); KETONES,URINE NEGATIVE (NEGATIVE); LEUKOCYTE ESTERASE ,URINE 1+ (NEGATIVE); NITRITE,URINE NEGATIVE (NEGATIVE); PH,URINE 5 (5-9); PROTEIN,URINE 3+ (NEGATIVE); UROBILINOGEN,URINE NORMAL (NORMAL)
[2018-02-02 07:59] LABS: RBC,URINE TNTC /HPF
[2018-02-02 08:00] LABS: BACTERIA,URINE TRACE /HPF; SQUAMOUS EPITHELIAL CELL,UR 0-2 /HPF
[2018-02-02 08:01] LABS: AMORPHOUS SEDIMENT,UR RARE AMOR URATES /LPF; GRANULAR CASTS,URINE 0-2 /LPF
--- NOTE | 2018-02-02 08:25 | Diagnostic Imaging Report ---
Indication: Intubation. Comparison: 02/01/2018. Findings: Stable ET and enteric tubes. Stable right IJ central venous catheter. Bilateral perihilar interstitial and airspace opacities are similar. Possible trace pleural effusions are unchanged. No pneumothorax. Stable cardiomegaly. Impression: 1. Stable support devices. 2. No change in pulmonary opacities, most suggestive of interstitial and alveolar pulmonary edema. Dictated by: Dictated on workstation # [id number]
[2018-02-02] MEDS: fentaNYL INJECTION 1,250 MCG in NS (IVPB) 250 ML IV SCH (08:42)
[2018-02-02] MEDS ORDERED: HEParin (CATH LAB) 2,000 ML IV ONE (08:49)
[2018-02-02] MEDS ORDERED: LIDOCAINE 1% INJ 20 ML 20 ML VIAL ONE (08:49)
--- NOTE | 2018-02-02 09:29 | Cardiology Progress Note ---
Cardiology SOAP Progress Note Subjective: On ventilation/intubated. Objective: I&O/Vital Signs 02/02/18 02/02/18 02/02/18 02/02/18 02:00 02:50 03:00 04:00 Temp 96.0 Pulse 60 60 60 Resp 20 20 24 B/P (MAP) 112/48 (69) 113/49 (70) Pulse Ox 96 96 97 O2 Delivery Mechanical Ventilator Mechanical Ventilator O2 Flow Rate 30.00 30.00 FiO2 30 02/02/18 02/02/18 02/02/18 02/02/18 04:00 04:00 05:00 05:17 Pulse 63 61 75 Resp 27 21 B/P (MAP) 120/50 (73) 121/50 (73) Pulse Ox 100 96 96 O2 Delivery Mechanical Ventilator Mechanical Ventilator Mechanical Ventilator O2 Flow Rate 30.00 30.00 FiO2 30 02/02/18 02/02/18 02/02/18 02/02/18 06:00 06:54 07:00 07:00 Pulse 61 61 67 64 Resp 25 20 8 B/P (MAP) 122/50 (74) 167/93 (117) Pulse Ox 96 95 96 O2 Delivery Mechanical Ventilator Mechanical Ventilator O2 Flow Rate 30.00 30.00 FiO2 30 02/02/18 02/02/18 02/02/18 02/02/18 08:00 09:00 09:45 10:00 Pulse 68 63 61 63 Resp 28 26 29 26 B/P (MAP) 133/53 (79) 123/46 (71) 111/46 (67) Pulse Ox 97 95 95 95 O2 Delivery Mechanical Ventilator Mechanical Ventilator Mechanical Ventilator O2 Flow Rate 30.00 30.00 30.00 FiO2 30 02/02/18 02/02/18 02/02/18 02/02/18 11:00 11:11 12:00 12:45 Temp 97.6 Pulse 66 73 72 Resp 28 27 26 B/P (MAP) 112/51 (71) 118/54 (75) Pulse Ox 95 96 97 O2 Delivery Mechanical Ventilator Mechanical Ventilator Mechanical Ventilator O2 Flow Rate 30.00 30.00 FiO2 30 02/02/18 00:00 Intake Total 1400 ml Output Total 625 ml Balance 775 ml Weight (Pounds): 190 Weight (Ounces): 0.0 Weight (Calculated Kilograms): 86.962617 Constitutional: AAO x 3, apparent distress Respiratory: accessory muscle use, chest is bilaterally symmetric, other Cardiovascular: regular rate-rhythm, S1 and S2 Gastrointestional: No tender, No soft, No round, No distended, No pulsatile mass, No organomegaly, No guarding, No rebound, No tenderness, No hernia, No mass, No audible bowel sounds, No abnormal bowel sounds, No abdominal bruits, No spleenomegaly, No other Extremities: No normal range of motion, No non-tender, No normal inspection, No pedal edema, No calf tenderness, No normal capillary refill, No pelvis stable , No calf tenderness, No inflammation, No pedal edema, No slow capillary refill , No swelling, No other, No abrasion, No clubbing, No cyanosis, No ecchymosis, No laceration, No no lower extremity edema bilateral, No significant edema, No tenderness, No wound Neurologic/Psychiatric: no motor/sensory deficits, alert, normal mood/affect Skin: No normal color, No warm/dry, No cyanosis, No cool, No diaphoresis, No damp, No ecchymosis, No jaundice, No mottled, No pallor, No rash, No tattoos/ piercings, No ulcerations, No rash on exposed areas, No ulcerations on exposed areas, No other Results/Procedures: Labs Laboratory Tests 02/01/18 16:35: B-Type Natriuretic Peptide 1870.6H 02/01/18 16:45: White Blood Count 10.0, Red Blood Count 3.95L, Hemoglobin 12.5, Hematocrit 37, Mean Corpuscular Volume 93, Mean Corpuscular Hemoglobin 32, Mean Corpuscular Hemoglobin Concent 34, Red Cell Distribution Width 13.5, Platelet Count 111L, Mean Platelet Volume 10.9H, Neutrophils (%) (Auto) 89H, Lymphocytes (%) (Auto) 6L, Monocytes (%) (Auto) 5, Eosinophils (%) (Auto) 0, Basophils (%) (Auto) 0, Neutrophils # (Auto) 8.9H, Lymphocytes # (Auto) 0.6L, Monocytes # (Auto) 0.5, Eosinophils # (Auto) 0.0, Basophils # (Auto) 0.0, Neutrophils % (Manual) 86, Lymphocytes % (Manual) 9, Monocytes % (Manual) 4, Eosinophils % (Manual) 1, Basophils % (Manual) 0, Band Neutrophils 0, Blood Morphology Comment NORMAL, Sodium Level 139, Potassium Level 4.6, Chloride Level 110H, Carbon Dioxide Level 20L, Anion Gap 9, Blood Urea Nitrogen 26H, Creatinine 1.27, Estimat Glomerular Filtration Rate 43, BUN/Creatinine Ratio 20, Glucose Level 205H, Calcium Level 8.0L, Corrected Calcium 8.6, Total Bilirubin 0.4, Aspartate Amino Transf (AST/SGOT) 18, Alanine Aminotransferase (ALT/SGPT) 14, Alkaline Phosphatase 64, Total Protein 6.3L, Albumin 3.2 02/01/18 18:33: Triglycerides Level 312H 02/01/18 20:05: Blood Gas Puncture Site ARTLINE, Blood Gas Patient Temperature 96.5, Arterial Blood pH 7.30*L, Arterial Blood Partial Pressure CO2 47H, Arterial Blood Partial Pressure O2 120H, Arterial Blood HCO3 23, Arterial Blood Total CO2 24.1 , Arterial Blood Oxygen Saturation 99, Arterial Blood Base Excess -3.0L, [place] Test ART LINE, Blood Gas Ventilator Setting YES, Blood Gas Inspired Oxygen 50% 02/02/18 03:10: White Blood Count 7.5, Red Blood Count 3.56L, Hemoglobin 11.3L, Hematocrit 33L, Mean Corpuscular Volume 93, Mean Corpuscular Hemoglobin 32, Mean Corpuscular Hemoglobin Concent 34, Red Cell Distribution Width 13.6, Platelet Count 91L, Mean Platelet Volume 11.0H, Neutrophils (%) (Auto) 85H, Lymphocytes (%) (Auto) 9L, Monocytes (%) (Auto) 6, Eosinophils (%) (Auto) 1, Basophils (%) (Auto) 0, Neutrophils # (Auto) 6.3, Lymphocytes # (Auto) 0.6L, Monocytes # (Auto) 0.5, Eosinophils # (Auto) 0.1, Basophils # (Auto) 0.0, Blood Gas Puncture Site ARTLINE, Blood Gas Patient Temperature 96.0, Arterial Blood pH 7.37, Arterial Blood Partial Pressure CO2 37, Arterial Blood Partial Pressure O2 70L, Arterial Blood HCO3 21L, Arterial Blood Total CO2 22.3, Arterial Blood Oxygen Saturation 96, Arterial Blood Base Excess -3.6L, [place] Test ARTLINE, Blood Gas Ventilator Setting YES, Blood Gas Inspired Oxygen 30%, Sodium Level 139, Potassium Level 4.0, Chloride Level 110H, Carbon Dioxide Level 18L, Anion Gap 11, Blood Urea Nitrogen 32H, Creatinine 1.68H, Estimat Glomerular Filtration Rate 31, BUN/ Creatinine Ratio 19, Glucose Level 243H, Calcium Level 8.1L, Phosphorus Level 4.4, Magnesium Level 1.8 02/02/18 07:15: Urine Color YELLOW, Urine Clarity CLEAR, Urine pH 5, Urine Specific [place] 1.020, Urine Protein 3+H, Urine Glucose (UA) 1+H, Urine Ketones NEGATIVE, Urine Nitrite NEGATIVE, Urine Bilirubin NEGATIVE, Urine Urobilinogen NORMAL, Urine Leukocyte Esterase 1+H, Urine RBC (Auto) 5+H, Urine RBC TNTCH, Urine WBC 5-10H, Urine Squamous Epithelial Cells 0-2, Urine Crystals PRESENTH, Urine Amorphous Sediment RARE YEISON URATESH, Urine Bacteria TRACE, Urine Casts PRESENT, Urine Granular Casts 0-2H, Urine Mucus NEGATIVE, Urine Culture Indicated YES, Gastric Fluid Occult Blood POSITIVEH A/P: Assessment/Dx: Non-STEMI, Acute respiratory failure, Severe COPD, Previous history of CAD/IA, Smoking, Hypertension, Hyperlipidemia, Severe PAD Plan: Non-STEMI, will require coronary angiography. Informed consent was taken from the patient and daughter. Continue aspirin, Plavix, heparin. Acute respiratory failure, likely due to severe COPD. Check echocardiogram. Severe COPD, defer to Dr. Guillory. Previous history of CAD/IA, dual antiplatelet therapy. Smoking, CESSATION was strongly recommended. Hypertension, Hyperlipidemia, Severe PAD, bilateral lower extremity arterial ultrasound shows severe bilateral SFA disease. My consent also included peripheral angiogram (if possible). Creatinine is 1.6. Critical patient. Thank you for your consultation. Please call me if you have any questions. Xi Merino MD, FACP, FACC, FSCAI, FHRS, CCDS Interventional Cardiology Cardiac Electrophysiology Vascular Medicine and Endovascular Interventions Jd MERINO MD Feb 02, 2018 9:29 am
--- NOTE | 2018-02-02 16:18 | Progress Note-Hospitalist ---
Progress Note Progress Notes/Assess & Plan Date Seen 02/02/18 Time Seen by Provider: 13:40 Assessment & Plan The patient has taken a marked decline in condition. She was intubated and placed on a ventilator last night because of of impending respiratory failure. Her troponin series was opened 30 and 0.31. Creatinine has climbed from 1.31- 1.68. The BNP is 1870. Consideration is being given to coronary angiogram and distal peripheral study. This is somewhat tempered by her climb and creatinine. Physical exam: The patient is intubated and sedated. She appears critically ill and much older than stated age. Lungs are clear to auscultation. CV is regular. Abdomen is large and doughy Impression: Respiratory failure. 2.acute decline in renal function. 3.BNP consistent with congestive heart failure. 4.suspected coronary and peripheral vascular disease KONRAD GARCIA MD Feb 02, 2018 16:18
[2018-02-02] MEDS ORDERED: HEParin 1000 UNIT/ML (10ML VIAL) FOR BOLUS ONE (17:41)
[2018-02-02] MEDS ORDERED: NITRO DRIP 25000 MCG/D5W 250 ML IV ONE (17:41)
[2018-02-02] MEDS ORDERED: VERAPAMIL 5 MG/2 ML (CALAN) VIAL IV ONE (17:41)
--- NOTE | 2018-02-02 18:53 | Cardiac Procedure Note-CS/ASA ---
Pre-Procedure Note Pre-Op Procedure Note H&P Reviewed The H&P was reviewed, patient examined and no changes noted. Date H&P Reviewed: Feb 02, 2018 Time H&P Reviewed: 16:00 Conscious Sedation Pre-Proced Time 16:00 ASA Score 3 For ASA 3 and 4: Consider anesthesia and medical clearance. Also, for patients with a history of failed moderate sedation consider anesthesia. Airway Lungs Heart ASA score ASA 1: a normal healthy patient ASA 2: a patient with a mild systemic disease (mid diabetes, controlled hypertension, obesity ASA 3: a patient with a severe systemic disease that limits activity (angina , COPD, prior Myocardial infarction) ASA 4: a patient with an incapacitating disease that is a constant threat to life (CHF, renal failure) ASA 5: a moribund patient not expected to survive 24 hrs. (ruptured aneurysm) ASA 6: a declared brain patient whose organs are being harvested. For emergent operations, add the letter E after the classification Mallampati Classification Grade 1 Sedation Plan Analgesia, Amnesia, Plan communicated to team members, Discussed options with patient/fam, Discussed risks with patient/fam The patient is an appropriate candidate to undergo the planned procedure, sedation, and anesthesia. The patient immediately re-assessed prior to indication. Jd KUMARI MD Feb 02, 2018 6:53 pm
[2018-02-02] MEDS ORDERED: PATIENT MAY USE OWN MEDS, ALL PO SCH (19:00)
--- NOTE | 2018-02-02 19:09 | Coronary Angiography Report ---
Coronary Angiography Report DATE OF PROCEDURE: 02/02/18 INDICATION: NSTEMI, Severe respiratory failure, Congestive heart failure, severe PAD. PREOPERATIVE DIAGNOSIS: NSTEMI, Severe respiratory failure, Congestive heart failure. POSTOPERATIVE DIAGNOSIS: Severe three vessel disease, severe PAD. HISTORY: This is a 62 year old lady with history of active smoking, previous [place] with occluded one vessel, diabetes, chronic kidney disease, severe COPD, resting bilateral lower extremity discomfort who presented with chest pain to an outside hospital. She was transferred for non-STEMI care. However patient developed significant respiratory distress and was initially on BiPAP and then had to be intubated. The patient also has congestive heart failure. Creatinine 1.6. All the risks and benefits were explained to the patient and her daughter. Therefore, the patient was scheduled for urgent coronary angiography. PROCEDURES PERFORMED: 1.Coronary angiography. 2.Left heart catheterization. 3. Abdominal aortogram and bilateral lower extremity runoff. COMPLICATIONS: None. SPECIMENS: None. ESTIMATED BLOOD LOSS: 10 mL ANESTHESIA: Intubated/ventilated. ANTICOAGULATION: none. CONTRAST: 150 mL. FLUOROSCOPY: 8.9 minutes. FLOUROSCOPY DOSE: 1333 mgy. PROCEDURE DETAILS: The patient is a 62 female and was brought to the senior laboratory technician after informed consent was taken from the daughter. All the risks and complications were explained in detail; this included the risk of bleeding, vascular damage, stroke, [place] and even . The patient was draped and prepped in the usual sterile fashion. We first tried to gain access in the right radial artery, however the pulse was feebly palpable therefore we opted to gain the right femoral artery access with a 5 [place] sheath. The right coronary angiography could not be done with a JR4 catheter therefore a Bla[place] right catheter was used. Left heart catheterization was done with a JR4 catheter. Left coronary angiography was done with a JL4 catheter. Abdominal aortogram and bilateral lower extremity runoff was done with a pigtail catheter. FINDINGS: 1.Left main: Moderate distal left main stenosis. Stenosis severity is 40-50 percent. 2.LAD: Severe ostial LAD stenosis. Stenosis severity 90 percent. Mild diffuse disease distally. 3.Left circumflex artery: Likely severe proximal left circumflex artery stenosis. Stenosis severity 80 percent. Some views are limited due to the patient being ventilated. 4.RCA: Chronic total occlusion of the ostium with good collaterals from the left coronary system. 5.Left heart catheterization: Aortic pressure 119/55 mmHg, LV pressure 133/10 mmHg. LVEDP 17 mmHg. Preserved LV function with inferior akinesis. No gradient across the aortic valve. 6. Abdominal aortogram with bilateral lower extremity runoff: A pigtail catheter was placed just above the renal arteries and an abdominal aortogram was done. Mild diffuse disease in the abdominal aorta. No significant disease in bilateral renal arteries. SMA does not have significant disease. Mild diffuse disease bilateral iliac arteries. The pigtail catheter was then pulled back to the level of bifurcation and another angiogram done which showed bilateral mild to moderate diffuse disease in the iliac arteries. Totally occluded SFA from the ostium in the right lower extremity. Totally occluded left ostial SFA. CONCLUSIONS: 1. Severe three-vessel disease including distal left main, ostial LAD, proximal left circumflex artery stenosis. Chronic total occlusion of the ostial RCA supplied by collaterals from the left coronary system. 2. Bilateral ostial SFA occlusions. 3. LVEF 50 percent with inferior akinesis. LVEDP is 17 mmHg. 4. I discussed at length with the daughter and recommended that in the next one or 2 days she should be transferred to a facility for CABG versus high-risk PCI evaluation. She may not be a candidate for CABG due to severe COPD. However she may require distal left main bifurcating PCI in to the left circumflex artery and LAD. 5. Continue severe COPD and heart failure management. Xi Merino MD, FACP, FACC, [facility] Interventional Cardiology Jd MERINO MD Feb 02, 2018 7:09 pm
[2018-02-02] MEDS: NS IV 1000 ML 1,000 ML IV SCH (20:21)
[2018-02-03] VITALS (23 sets, daily range): BP systolic 88–136; BP diastolic 41–61
[2018-02-03] MEDS: inSUlin ASPART (NovoLOG) 1 UNIT/0.01 ML (CHARGE PER UNIT) SC SCH ×3 (00:53→12:53)
[2018-02-03] MEDS: PROPOFOL DRIP (ICU) 100 ML IV SCH ×2 (01:21→11:01)
[2018-02-03] MEDS: RT-ALBUTEROL/IPRATROPIUM 3 ML (DUONEB) VIAL INH SCH ×3 (01:21→10:37)
[2018-02-03] MEDS: LACTATED RINGERS 1,000 ML IV SCH ×2 (02:28→10:53)
[2018-02-03 04:15] LABS: BASOPHILS % (AUTO) 0 % (0-10); EOSINOPHILS # (AUTO) 0.1 10^3/uL (0.0-0.3); EOSINOPHILS % (AUTO) 1 % (0-10); HEMATOCRIT 32 % (35-52); HEMOGLOBIN 10.6 G/DL (11.5-16.0); LYMPHOCYTES # (AUTO) 0.5 X 10^3 (1.0-4.0); LYMPHOCYTES % (AUTO) 8 % (12-44); MEAN CORPUSCULAR HEMOGLOBIN 32 PG (25-34); MEAN CORPUSCULAR HGB CONC 34 G/DL (32-36); MEAN CORPUSCULAR VOLUME 95 FL (80-99); MEAN PLATELET VOLUME 10.8 FL (7.4-10.4); MONOCYTES # (AUTO) 0.6 X 10^3 (0.0-1.0); MONOCYTES % (AUTO) 8 % (0-12); NEUTROPHILS # (AUTO) 5.8 X 10^3 (1.8-7.8); NEUTROPHILS % (AUTO) 83 % (42-75); PLATELET COUNT 98 10^3/uL (130-400); RED BLOOD COUNT 3.34 10^6/uL (4.35-5.85); RED CELL DISTRIBUTION WIDTH 13.9 % (10.0-14.5)
[2018-02-03 04:16] LABS: ABG BASE EXCESS -2.4 MMOL/L (-2.5-2.5); ABG OXYGEN SATURATION 96 % (94-100); ABG PCO2 45 MMHG (35-45); ABG PO2 84 MMHG (79-93); ABG TCO2 23.8 MMOL/L (21.0-31.0); ALLENS TEST ARTLINE; INSPIRED O2 30%; VENTILATOR YES
[2018-02-03 04:17] LABS: PATIENT TEMP 100.4
[2018-02-03 04:18] LABS: ABG PH 7.32 (7.37-7.43)
[2018-02-03] MEDS: fentaNYL INJECTION 1,250 MCG in NS (IVPB) 250 ML IV SCH (04:23)
[2018-02-03] MEDS: ENOXAPARIN 80 MG/0.8 ML (LOVENOX) SYR SC SCH (04:24)
[2018-02-03 05:00] LABS: CALCIUM 8.3 MG/DL (8.5-10.1); CREATININE SERUM 1.92 MG/DL (0.60-1.30); MAGNESIUM 1.7 MG/DL (1.8-2.4); PHOSPHORUS 4.3 MG/DL (2.3-4.7); POTASSIUM 3.8 MMOL/L (3.6-5.0)
[2018-02-03] MEDS: NS IV 1000 ML 1,000 ML IV SCH ×2 (05:14→15:37)
[2018-02-03] MEDS: MAGNESIUM 1 GM/100 ML IVPB 100 ML IV SCH ×2 (05:15→05:21)
[2018-02-03] MEDS: POTASSIUM CL 10MEQ/50ML IVPB 50 ML IV SCH (05:15)
[2018-02-03] MEDS: KCL 20 MEQ TAB (K-DUR) PO SCH (05:15)
--- NOTE | 2018-02-03 05:27 | Pulmonary Progress Note ---
Sepsis Event Evaluation Height, Weight, BMI Height: 5'2.00" Weight: 190lbs. 0.0oz. 86.354644tp; 33.8 BMI Method: Exam Exam Vital Signs Date Time Temp Pulse Resp B/P (MAP) Pulse Ox O2 Delivery O2 Flow Rate FiO2 02/03/18 04:00 100.4 02/03/18 04:00 98 Mechanical Ventilator 30 02/03/18 04:00 105 21 88/46 (60) 97 Mechanical Ventilator 30.00 02/03/18 03:37 110 29 96 30 02/03/18 03:00 107 22 106/48 (67) 96 Mechanical Ventilator 30.00 02/03/18 02:00 105 21 110/49 (69) 98 Mechanical Ventilator 30.00 02/03/18 01:21 103 02/03/18 01:21 103 23 99 30 02/03/18 01:00 110 21 110/49 (69) 100 Mechanical Ventilator 30.00 02/03/18 01:00 110 02/03/18 00:00 102 16 104/46 (65) 99 Mechanical Ventilator 30.00 02/03/18 00:00 98 Mechanical Ventilator 30 02/02/18 23:00 104 24 99 30 02/02/18 23:00 105 22 119/52 (74) 99 Mechanical Ventilator 30.00 02/02/18 22:00 105 22 147/57 (87) 98 Mechanical Ventilator 30.00 02/02/18 21:52 95 02/02/18 21:13 102 21 99 30 02/02/18 21:00 103 11 98/83 (88) 99 Mechanical Ventilator 30.00 02/02/18 20:00 98.5 Mechanical Ventilator 30.00 02/02/18 20:00 97 114/48 (70) 98 Mechanical Ventilator 30.00 02/02/18 20:00 98 Mechanical Ventilator 30 02/02/18 19:30 105 30 97 30 02/02/18 19:24 104 28 183/71 (108) 98 Mechanical Ventilator 30.00 02/02/18 19:00 100 02/02/18 17:21 97 24 100 60 02/02/18 17:00 87 16 133/58 (83) 98 Mechanical Ventilator 30.00 02/02/18 16:00 90 25 145/61 (89) 97 Mechanical Ventilator 30.00 02/02/18 16:00 100 Mechanical Ventilator 30 02/02/18 15:00 80 24 112/51 (71) 99 Mechanical Ventilator 30.00 02/02/18 14:12 73 24 98 30 02/02/18 14:00 79 24 120/52 (74) 99 Mechanical Ventilator 30.00 02/02/18 13:00 73 24 121/51 (74) 97 Mechanical Ventilator 30.00 02/02/18 13:00 73 02/02/18 12:45 72 26 97 30 02/02/18 12:00 73 27 118/54 (75) 96 Mechanical Ventilator 30.00 02/02/18 12:00 97.3 02/02/18 12:00 100 Mechanical Ventilator 30 02/02/18 11:11 97.6 Mechanical Ventilator 02/02/18 11:00 66 28 112/51 (71) 95 Mechanical Ventilator 30.00 02/02/18 10:00 63 26 111/46 (67) 95 Mechanical Ventilator 30.00 02/02/18 09:45 61 29 95 30 02/02/18 09:00 63 26 123/46 (71) 95 Mechanical Ventilator 30.00 02/02/18 08:00 68 28 133/53 (79) 97 Mechanical Ventilator 30.00 02/02/18 08:00 97.6 Mechanical Ventilator 02/02/18 08:00 100 Mechanical Ventilator 30 02/02/18 07:00 64 02/02/18 07:00 67 8 167/93 (117) 96 Mechanical Ventilator 30.00 02/02/18 06:54 61 20 95 30 02/02/18 06:00 61 25 122/50 (74) 96 Mechanical Ventilator 30.00 I & O 02/03/18 07:00 Output Total 1380 ml Balance -1380 ml Height & Weight Height: 5'2.00" Weight: 190lbs. 0.0oz. 86.818302xb; 33.8 BMI Method: General Appearance: Other HEENT: Normal ENT Inspection Neck: Normal Inspection Respiratory: Chest Non Tender, Lungs Clear, Normal Breath Sounds, No Accessory Muscle Use, No Respiratory Distress Cardiovascular: Regular Rate, Rhythm, No Edema, No Gallop, No JVD, No Murmur, Normal Peripheral Pulses Capillary Refill: Less Than 3 Seconds Extremity: Other Results Lab Laboratory Tests 02/01/18 16:45 02/02/18 03:10 02/03/18 04:05 Assessment/Plan Assessment/Plan Acute on chronic respiratory failure -PT is doing better on ventilator -Start TF after cardiac cath GIB -gastric occult is positive -start Protonix BID IV -monitor CP -Transferred here from [facility] -Troponin here is negative ordered x 3 -Dr. Merino possible cath today PVD -venous and arterial dopplers of LE bilaterally show complete occlusion of the SFA bilaterally. -Cardiology is following HTN -s/p Labetalol CAD with hx of [place] Tobacco use GI/DVT PPX -Check gastric occult -Continue protonix Family at bedside all questions answered. Also discussed with medical staff regarding plan of care. WIL BARTON DO Feb 03, 2018 05:27
[2018-02-03] MEDS: PIPERACILLIN SODIUM/TAZOBACTAM 4.5 GM in NS (IVPB) 100 ML IV SCH ×2 (06:34→15:37)
--- NOTE | 2018-02-03 07:45 | Diagnostic Imaging Report ---
INDICATION: Intubation. COMPARISON: 02/02/2018. FINDINGS: Stable ET and enteric tubes. Stable right IJ central venous catheter. Unchanged cardiomegaly. Central perihilar and basilar opacities are unchanged. Possible trace left pleural effusion. No pneumothorax. IMPRESSION: 1. Stable support devices. 2. No change in central vascular congestion. Dictated by: Dictated on workstation # [id number]
[2018-02-03] MEDS ORDERED: CLOPIDOGREL 75 MG (PLAVIX) TABLET PO SCH (09:00)
[2018-02-03] MEDS ORDERED: ASPIRIN E.C. 81 MG (ECOTRIN) TAB PO SCH (09:00)
[2018-02-03] MEDS: PANTOPRAZOLE 40 MG (PROTONIX) VIAL IV SCH (10:59)
--- NOTE | 2018-02-03 11:01 | Progress Note-Hospitalist ---
Subjective HPI/CC On Admission Date Seen by Provider: Feb 03, 2018 Time Seen by Provider: 10:15 The patient is a 62-year-old white female. She was admitted from the emergency room in the early childhood assistant hours. Her daughter states that she has chest pain and a history of heart disease. She took 3 nitroglycerin and then went to bed. At about 0000 hours she checked on her and found her to be confused. She then called the ambulance and sent her here. She states that her mother has no insurance and has not had regular medical attention. She states that her mother has not had much energy for life since her about 10 years ago. She has diabetes, hypertension, strong family history of cardiac disease, and smokes a pack or more of cigarettes per day. The daughter states that her mother has had episodes of relative confusion at intervals over the past year. In addition she has had multiple falls and exhibits poor balance and coordination. This morning when she checked on her while in bed is clearly confused and tried to eat a remote which she apparently thought to be a cookie. Subjective/Events-last exam Pt intubated Transfer pending Objective Exam Vital Signs Vital Signs Date Time Temp Pulse Resp B/P (MAP) Pulse Ox O2 Delivery O2 Flow Rate FiO2 02/03/18 15:11 108/49 99 Mechanical Ventilator 30 02/03/18 15:00 92 13 30.00 02/03/18 11:48 99.2 Capillary Refill : Less Than 3 Seconds General Appearance: No Apparent Distress, WD/WN, Chronically ill, Obese, Other (intubated) Respiratory: Chest Non Tender, Lungs Clear, Normal Breath Sounds, No Accessory Muscle Use, No Respiratory Distress Cardiovascular: Regular Rate, Rhythm, No Edema, No Gallop, No JVD, No Murmur, Normal Peripheral Pulses Results/Procedures Lab Laboratory Tests 02/03/18 04:05 Patient resulted labs reviewed. Assessment/Plan Assessment and Plan Assess & Plan/Chief Complaint Assessment: VDRF Multivessel disease in need of revascularization Plan: Await transfer Critical Care Critical Care: Critically Ill Patient Diagnosis/Problems Diagnosis/Problems (1) Ventilator dependence Status: Acute (2) Multi-vessel coronary artery stenosis Status: Acute Clinical Quality Measures DVT/VTE Risk/Contraindication: Risk Factor Score Per Nursin RFS Level Per Nursing on Admit: 2=Moderate ORIANA DIAZ DO Feb 03, 2018 11:01
--- NOTE | 2018-02-03 11:08 | Physician Query Clarification ---
PQ-CHF Specificity The medical record reflects the following clinical scenario: History/Risk Factors: Non STEMI HTN Clinical Findings: BNP-1870.6 Treatment: Coronary angiography, left heart cath. Question: Can you further specify the acuity &/or type of CHF per the clinical indicators above? Please document a response below PHYSICIAN RESPONSE Acuity: Acute Type: Diastolic In responding to this query, please exercise your independent professional judgment. The purpose of this communication is to more accurately reflect the complexity of your patients condition. The fact that a question is asked does not imply that any particular answer is desired or expected. Thank you for your timely response to this clarification. Requestors name: Lois Ayala [facility] Phone # ext [phone] or [phone] THIS PHYSICIAN QUERY FORM IS A PERMANENT PART OF THE MEDICAL RECORD LOIS AYALA Feb 03, 2018 11:08 Jd KUMARI MD Feb 03, 2018 11:33
--- NOTE | 2018-02-03 11:25 | Cardiology Progress Note ---
Cardiology SOAP Progress Note Subjective: Improved oxygenation on the ventilator. Objective: I&O/Vital Signs 02/03/18 02/03/18 02/03/18 02/03/18 03:00 03:37 04:00 04:00 Pulse 107 110 105 Resp 22 29 21 B/P (MAP) 106/48 (67) 88/46 (60) Pulse Ox 96 96 97 98 O2 Delivery Mechanical Ventilator Mechanical Ventilator Mechanical Ventilator O2 Flow Rate 30.00 30.00 FiO2 30 30 02/03/18 02/03/18 02/03/18 02/03/18 04:00 05:00 06:00 06:24 Temp 100.4 Pulse 101 97 96 Resp 24 19 23 B/P (MAP) 98/50 (66) 106/56 (73) Pulse Ox 99 100 100 O2 Delivery Mechanical Ventilator Mechanical Ventilator O2 Flow Rate 30.00 30.00 FiO2 30 02/03/18 02/03/18 02/03/18 02/03/18 07:00 07:00 08:00 08:00 Temp 99.4 Pulse 96 96 Resp 18 B/P (MAP) 101/53 (69) Pulse Ox 98 98 O2 Delivery Mechanical Ventilator Mechanical Ventilator O2 Flow Rate 30.00 FiO2 30 02/03/18 02/03/18 02/03/18 02/03/18 08:00 08:17 09:00 10:00 Pulse 98 98 98 94 Resp 18 18 17 17 B/P (MAP) 114/57 (76) 104/42 (62) 94/43 (60) Pulse Ox 99 98 98 97 O2 Delivery Mechanical Ventilator Mechanical Ventilator Mechanical Ventilator O2 Flow Rate 30.00 30.00 30.00 FiO2 30 02/03/18 02/03/18 02/03/18 02/03/18 10:38 11:00 11:01 11:48 Temp 99.2 Pulse 93 94 93 Resp 17 18 17 B/P (MAP) 104/45 (64) 105/44 Pulse Ox 97 97 97 O2 Delivery Mechanical Ventilator Mechanical Ventilator O2 Flow Rate 30.00 30.00 FiO2 30 02/03/18 02/03/18 02/03/18 02/03/18 12:00 12:48 13:00 13:00 Pulse 93 96 96 Resp 15 B/P (MAP) 111/48 (69) 134/55 (81) Pulse Ox 98 96 97 O2 Delivery Mechanical Ventilator Mechanical Ventilator Mechanical Ventilator O2 Flow Rate 30.00 30.00 FiO2 30 02/03/18 02/03/18 13:13 14:00 Pulse 95 95 Resp 20 16 B/P (MAP) 118/50 (72) Pulse Ox 98 96 O2 Delivery Mechanical Ventilator O2 Flow Rate 30.00 FiO2 30 02/02/18 23:59 Output Total 755 ml Balance -755 ml Weight (Pounds): 202 Weight (Ounces): 0.0 Weight (Calculated Kilograms): 91.403694 Constitutional: AAO x 3, apparent distress Respiratory: accessory muscle use, chest is bilaterally symmetric, other Cardiovascular: regular rate-rhythm, S1 and S2 Gastrointestional: No tender, No soft, No round, No distended, No pulsatile mass, No organomegaly, No guarding, No rebound, No tenderness, No hernia, No mass, No audible bowel sounds, No abnormal bowel sounds, No abdominal bruits, No spleenomegaly, No other Extremities: No normal range of motion, No non-tender, No normal inspection, No pedal edema, No calf tenderness, No normal capillary refill, No pelvis stable , No calf tenderness, No inflammation, No pedal edema, No slow capillary refill , No swelling, No other, No abrasion, No clubbing, No cyanosis, No ecchymosis, No laceration, No no lower extremity edema bilateral, No significant edema, No tenderness, No wound Neurologic/Psychiatric: no motor/sensory deficits, alert, normal mood/affect Skin: No normal color, No warm/dry, No cyanosis, No cool, No diaphoresis, No damp, No ecchymosis, No jaundice, No mottled, No pallor, No rash, No tattoos/ piercings, No ulcerations, No rash on exposed areas, No ulcerations on exposed areas, No other Results/Procedures: Labs Laboratory Tests 02/02/18 19:41: Glucometer 151H 02/03/18 04:05: White Blood Count 7.0, Red Blood Count 3.34L, Hemoglobin 10.6L, Hematocrit 32L, Mean Corpuscular Volume 95, Mean Corpuscular Hemoglobin 32, Mean Corpuscular Hemoglobin Concent 34, Red Cell Distribution Width 13.9, Platelet Count 98L, Mean Platelet Volume 10.8H, Neutrophils (%) (Auto) 83H, Lymphocytes (%) (Auto) 8L, Monocytes (%) (Auto) 8, Eosinophils (%) (Auto) 1, Basophils (%) (Auto) 0, Neutrophils # (Auto) 5.8, Lymphocytes # (Auto) 0.5L, Monocytes # (Auto) 0.6, Eosinophils # (Auto) 0.1, Basophils # (Auto) 0.0, Blood Gas Puncture Site ARTLINE, Blood Gas Patient Temperature 100.4, Arterial Blood pH 7.32*L, Arterial Blood Partial Pressure CO2 45, Arterial Blood Partial Pressure O2 84, Arterial Blood HCO3 23, Arterial Blood Total CO2 23.8, Arterial Blood Oxygen Saturation 96, Arterial Blood Base Excess -2.4, [place] Test ARTLINE, Blood Gas Ventilator Setting YES, Blood Gas Inspired Oxygen 30%, Sodium Level 140, Potassium Level 3.8, Chloride Level 110H, Carbon Dioxide Level 19L, Anion Gap 11 , Blood Urea Nitrogen 33H, Creatinine 1.92H, Estimat Glomerular Filtration Rate 27, BUN/Creatinine Ratio 17, Glucose Level 134H, Calcium Level 8.3L, Phosphorus Level 4.3, Magnesium Level 1.7L 02/03/18 12:46: Glucometer 154H Microbiology 02/01/18 Blood Culture - Preliminary, Resulted No growth 02/01/18 Gram Stain - Final, Resulted 02/01/18 Sputum Culture - Preliminary, Resulted Pseudomonas aeruginosa Strep Species, Alpha Hemolytic 02/02/18 Urine Culture - Final, Complete NO GROWTH A/P: Assessment/Dx: Non-STEMI, Acute respiratory failure, Severe COPD, Previous history of CAD/[place], Smoking, Hypertension, Hyperlipidemia, Severe PAD Plan: Non-STEMI, will require coronary angiography. Coronary angiography done yesterday evening showed mild to moderate distal left main disease, severe ostial LAD stenosis, possible severe left circumflex artery stenosis, chronic total occlusion of ostial RCA with collaterals from left coronary system. Normal LV function with LVEDP 17 mmHg. Some views were limited due to the patient being intubated and ventilated. Continue aspirin, Plavix, heparin. I discussed with Dr. Guillory and the daughter at length and recommended that the patient be transferred to a center which has cardiac surgery. The patient will likely require a heart team consultation for either CABG or high risk PCI. I will contact [facility]. Acute respiratory failure, likely due to severe COPD. echocardiogram. Severe COPD, defer to Dr. Guillory. Previous history of CAD/GA, dual antiplatelet therapy. Smoking, CESSATION was strongly recommended. Hypertension, Hyperlipidemia, Severe PAD, bilateral lower extremity arterial ultrasound shows severe bilateral SFA disease. Creatinine is 1.6. Critical patient. It took over 30 minutes to take care of this patient. Thank you for your consultation. Please call me if you have any questions. Xi Merino MD, FACP, FACC, FSCAI, FHRS, CCDS Interventional Cardiology Cardiac Electrophysiology Vascular Medicine and Endovascular Interventions Jd MERINO MD Feb 03, 2018 11:25 am
--- NOTE | 2018-02-03 13:13 | Cardiology Discharge Summary ---
Diagnosis/Chief Complaint Date of Admission Feb 01, 2018 at 3:07 am Date of Discharge 10/03/2017 Admission Diagnosis Acute respiratory failure, moderate to severe COPD, acute diastolic congestive heart failure, non-ST elevation TX Final/Discharge Diagnosis Severe three-vessel CAD, non-STEMI, acute diastolic congestive heart failure, moderate to severe COPD on ventilator Chief Complaint/HPI Chief Complaint/HPI This is a 62-year-old lady who presented to [facility] with complains of chest pain. She has significant history of active smoking, diabetes, hyperlipidemia. She also has history of COPD. According to the patient she is had previous history of [place] but no stents were placed. She had a prolonged episode of chest pain. Substernal. Moderate intensity. No significant radiation. No significant exacerbating or relieving factors. She is also significantly short of breath and restless. Discharge Summary Procedures She was intubated on 02/01/2018. Coronary angiography done 02/02/2018 showed mild to moderate distal left main disease, severe ostial LAD disease, possibly severe ostial left circumflex artery stenosis, total occlusion of ostial RCA. Normal LV function with LVEDP of 17 mmHg. Please note that some angiographic views were limited due to limitations from the patient being intubated and ventilated. Discharge Physical Examination Patient is intubated/ventilated. Normal cardiac examination with no significant rales or rhonchi. Hospital Course Improved oxygenation during hospitalization with aggressive COPD management. Continues to be intubated/ventilated with improvement in oxygenation status. CKD, Diabetes, Acute diastolic congestive heart failure, Non-STEMI, Moderate to severe COPD. Pending Labs Laboratory Tests 02/03/18 12:46: Glucometer 154 Discussion & Recommendations Discussion I discussed at length with the daughter. The patient has high risk coronary anatomy, with the patient with diabetes, CABG versus high risk PCI is recommended. I have discussed with Dr. Jean-Pierre Vicente at [facility] and he will accept the patient for further evaluation at his institution. Dicharge Diet: No Restrictions Activity as Tolerated: No Home Medications Reviewed patient Home Medication Reconciliation performed by pharmacy medication reconciliations pharmacy technician per diem and/or nursing. Patients Allergies have been reviewed. Discharge Home Medications: Reviewed and agree with Discharge Medication list on patient's Discharge Instruction sheet Condition at discharge Patient is intubated/ventilated. Will be transferred to [facility] for CABG versus high-risk PCI. Guarded prognosis. Instructions to patient/family Discussed at length with the daughter at the bedside. Clinical Quality Measures DVT/VTE Risk/Contraindication: Risk Factor Score Per Nursin RFS Level Per Nursing on Admit: 2=Moderate Jd KUMARI MD Feb 03, 2018 1:13 pm
== END 2018-02-03 15:11 | disposition short-term general hospital (02) | DRG 280 ==
LOC: ICU 03:07
PROVIDERS: ADMIT Family Medicine; ATTEND Internal Medicine
PROC: 5A1945Z Respiratory Ventilation, 24-96 Consecutive Hours (ICD-10-PCS; principal; 2018-02-01)
PROC: 4A023N7 Measurement of Cardiac Sampling and Pressure, Left Heart, Percutaneous Approach (ICD-10-PCS; 2018-02-02)
PROC: B2111ZZ Fluoroscopy of Multiple Coronary Arteries using Low Osmolar Contrast (ICD-10-PCS; 2018-02-02)
PROC: B2151ZZ Fluoroscopy of Left Heart using Low Osmolar Contrast (ICD-10-PCS; 2018-02-02)
PROC: B41D1ZZ Fluoroscopy of Aorta and Bilateral Lower Extremity Arteries using Low Osmolar Contrast (ICD-10-PCS; 2018-02-02)
DX: I21.4 Non-ST elevation (NSTEMI) myocardial infarction (principal); J96.00 Acute respiratory failure, unspecified whether with hypoxia or hypercapnia; I13.0 Hypertensive heart and chronic kidney disease with heart failure and stage 1 through stage 4 chronic kidney disease, or unspecified chronic kidney disease; I50.31 Acute diastolic (congestive) heart failure; N18.9 Chronic kidney disease, unspecified; I25.10 Atherosclerotic heart disease of native coronary artery without angina pectoris; I70.223 Atherosclerosis of native arteries of extremities with rest pain, bilateral legs; I70.92 Chronic total occlusion of artery of the extremities; F17.210 Nicotine dependence, cigarettes, uncomplicated; E11.9 Type 2 diabetes mellitus without complications; I25.2 Old myocardial infarction; J44.9 Chronic obstructive pulmonary disease, unspecified; E78.5 Hyperlipidemia, unspecified; I70.0 Atherosclerosis of aorta; I70.8 Atherosclerosis of other arteries; R19.5 Other fecal abnormalities; L40.9 Psoriasis, unspecified; R45.1 Restlessness and agitation; R27.8 Other lack of coordination; E66.9 Obesity, unspecified; Z91.81 History of falling; Z68.36 Body mass index [BMI] 36.0-36.9, adult
CPT/HCPCS: 36415; 70450; 71045; 71250; 80048; 80053; 80061; 80306; 81000; 82271; 82805; 82962; 83735; 83880; 84100; 84478; 84484; 85007; 85025; 85027; 85730; 87040; 87070; 87077; 87081; 87088; 87186; 87205; 93005; 93306; 93458; 93925; 93970; 94002; 94003; 94640; 94660; 94799

== ENCOUNTER 2018-06-08 14:23 | Emergency (ER) | payer SELFPAY ==
[~2018-06-08] VITALS: Ht 157.5 cm; Wt 78.9 kg
[~2018-06-08 14:23] MED LIST: AMIT100T2 PO; CALC-6 PO; EUCA1LOZ28 MM; FURO40TA4 PO; GABA-486 PO; INSU100I10 SQ; INSU100I23 SQ; ISM60TCR PO; LEVO88TA54 PO; LISI-552 PO; LOVA20TA2 PO; METF-399 PO; METO-370 PO; NFBIOT1000 PO; OMG1KC PO; POTA10TA36 PO
--- NOTE | 2018-06-08 15:07 | ED Cough/URI ---
General Chief Complaint: Cough/Cold/Flu Symptoms Stated Complaint: VOMITING; DIARRHEA; SOB Nursing Triage Note: Has had a cough, nausea, vomiting, diarrhea, and fever that started two days ago. Her son that lives with her was diagnosed with the flu Sepsis Screen: No Definite Risk Source: patient Exam Limitations: no limitations History of Present Illness Date Seen by Provider: Jun 08, 2018 Time Seen by Provider: 14:58 Initial Comments Patient presents to ER by private conveyance with chief complaint of 2 days of cough, fever Tmax 101, nausea vomiting diarrhea. Her grandson was recently diagnosed with influenza and stays with her. She has a history of COPD and has albuterol but does not have a nebulizer machine. She does smoke about a pack cigarettes per day has a history of coronary disease but has discontinued smoking for the past 2 days because of her cough and shortness of breath. She has a history of blood pressure and her grandson make sure that she takes her medicine. Her daughter noted that she was seeing some things that were not there. Allergies and Home Medications Allergies Coded Allergies: No Known Drug Allergies (Unverified , 02/01/18) Home Medications Amitriptyline HCl 100 Mg Tablet, 100 MG PO HS, (Reported) Biotin 1,000 Mcg Tablet, 1,000 MCG PO DAILY, (Reported) Calcium Carbonate/Vitamin D3 1 Each Tablet, 1 TAB PO DAILY, (Reported) Eucalyptus/Menthol 1 Each Lozenge, 1 ELVA MM Q2H PRN for COUGH, (Reported) Furosemide 40 Mg Tablet, 40 MG PO DAILY, (Reported) LAST FILLED #30 09-14-17 Gabapentin 100 Mg Capsule, 300 MG PO DAILY PRN for NERVE PAIN, (Reported) Insulin Glargine,Hum.rec.anlog 100 Unit/1 Ml Insuln.pen, 40 UNIT SQ BID, ( Reported) Insulin Lispro 100 Unit/1 Ml Insuln.pen, 40 UNIT SQ AC, (Reported) Isosorbide Mononitrate 60 Mg Tab, 60 MG PO DAILY, (Reported) Levothyroxine Sodium 88 Mcg Tablet, 88 MCG PO DAILY, (Reported) Lisinopril 20 Mg Tablet, 20 MG PO DAILY, (Reported) Lovastatin 20 Mg Tablet, 20 MG PO HS, (Reported) Metoprolol Succinate 50 Mg Tab.er.24h, 50 MG PO BID, (Reported) [place] 3 Polyunsat Fatty Acids 1,000 Mg Cap, 1,000 MG PO DAILY, (Reported) Potassium Chloride 10 Meq Tab.er.prt, 10 MEQ PO DAILY, (Reported) LAST FILLED #30 09-07-18 Patient Home Medication List Home Medication List Reviewed: Yes Review of Systems Review of Systems Constitutional: chills, fever, malaise EENTM: No ear discharge, No ear pain Respiratory: cough; No phlegm, No short of breath, No wheezing Cardiovascular: No chest pain, No edema Gastrointestinal: No abdominal pain, No constipation; diarrhea, nausea, vomiting Genitourinary: No decreased output, No discharge : No Past Ebvjlca-Bvagna-Fivkxo Hx Patient Social History Type Used: Cigarettes Recent Foreign Travel: No Contact w/Someone Who Travel: No Recent Infectious Disease Expo: Yes (son has the flu) Recent Hopitalizations: No Immunizations Up To Date Date of Pneumonia Vaccine: Mar 09, 2016 Seasonal Allergies Seasonal Allergies: No Past Medical History Surgeries: Yes Respiratory: No Neurological: No Sexually Transmitted Disease: No HIV/AIDS: No Genitourinary: No Gastrointestinal: No Musculoskeletal: No Endocrine: Yes (TYPE 2 DM) HEENT: No Cancer: No Psychosocial: No Integumentary: Yes Psoriasis Blood Disorders: No Adverse Reaction/Blood Tranf: No Physical Exam Vital Signs - First Documented 06/08/18 14:40 Temp 100.0 Pulse 87 Resp 20 B/P (MAP) 163/66 (98) Pulse Ox 93 Capillary Refill : Less Than 3 Seconds Height: 5'2.00" Weight: 174lbs. 0.0oz. 78.725403ze; 33.8 BMI Method:Stated General Appearance: WD/WN, no apparent distress Eyes: Bilateral Eye Normal Inspection, Bilateral Eye PERRL, Bilateral Eye EOMI HEENT: PERRL/EOMI, normal ENT inspection, TMs normal, pharynx normal Neck: full range of motion, supple, normal inspection Respiratory: lungs clear, no respiratory distress, no accessory muscle use, decreased breath sounds Cardiovascular: normal peripheral pulses, regular rate, rhythm Gastrointestinal: non tender, soft Neurologic/Psychiatric: housekeeping lead II-XII nml as tested, no motor/sensory deficits, alert, normal mood/affect, oriented x 3 Skin: normal color, warm/dry Procedures/Interventions Date of ETT Placement: Feb 01, 2018 Time of ETT Placement: 1613 Progress/Results/Core Measures Suspected Sepsis Recent Fever Within 48 Hours: Yes Infection Criteria Present: Suspected New Infection New/Unexplained Altered Menta: No Sepsis Screen: No Definite Risk SIRS Temperature:100.0 Pulse: 87 Respiratory Rate: 20 Blood Pressure 163 /66 Mean: 98 Results/Orders Micro Results Microbiology 06/08/18 Influenza Types A,B Antigen (WILLIAM) - Final, Complete My Orders Orders - JONO RAINES Influenza A And B Antigens (06/08/18 14:45) Albuterol/Ipra Inhalation Soln (Duoneb I (06/08/18 15:15) Svn Small Volume Nebulizer (06/08/18 15:04) Medications Given in ED Current Medications Medications Dose Ordered Sig/[place] Route Start Time Stop Time Status Last Admin Dose Admin Albuterol/ Ipratropium 3 ml ONCE ONCE INH 06/08/18 15:15 06/08/18 15:16 DC 06/08/18 15:10 3 ML Vital Signs/I&O 06/08/18 14:40 Temp 100.0 Pulse 87 Resp 20 B/P (MAP) 163/66 (98) Pulse Ox 93 Capillary Refill : Less Than 3 Seconds Blood Pressure Mean: 98 Progress Note : Time: 15:26 Progress Note Patient has influenza. The hallucinations are likely indicative of delirium secondary to influenza. Vital signs are aseptic. Gave her breathing treatment which greatly improved her sensation of cough and tightness in the chest. Her lung sounds are still no wheezing and feeling better air movement. We'll provide her a prescription for her nebulizer machine is broken and she says she has plenty of albuterol. We'll get her a pro-air inhaler. We will also make sure she has some Tessalon Perles. She is outside the window where the Tamiflu would be useful. We discussed delirium and influenza expectations as well as return precautions. Patient is eager to go home now she's feeling better and says she will come back if she has difficulty breathing. She is neurologically intact and demonstrating no evidence of confusion at this time. Departure Impression Primary Impression: Influenza Additional Impression: Delirium due to another medical condition Disposition: 01 HOME, SELF-CARE Condition: Improved Departure-Patient Inst. Decision time for Depature: 15:27 Referrals: NO,LOCAL PHYSICIAN (PCP/Family) Primary Care Physician Patient Instructions: Delirium (Confusion) (DC), Flu, Adult (DC) Add. Discharge Instructions: Drink lots of fluids. Use Tylenol and/or ibuprofen as necessary for fever or bodyaches. network support the Tessalon Perles and use them one tablet every 6 hours as necessary for cough. Use the Zofran 1 tablet under the tongue every 6 hours as needed for nausea or vomiting. Use the albuterol by your nebulizer every 4 hours as needed or persistent cough , wheezing or shortness of breath. Use the pro-air the same way you would use your albuterol nebulizer. Return to the ER if you begin to have chest pain, shortness of breath that is not relieved by your nebulizer or other worrisome symptoms. Sleep, fluids and as the influenza resolves over the next 2 weeks will help your confusion improve. All discharge instructions reviewed with patient and/or family. Voiced understanding. Scripts Nebulizer/Compressor ([place] Choice Nebulizer) 1 Each Each EACH MC for Wheezing, #1 0 Refills Prov: JONO RAINES 06/08/18 Benzonatate (Tessalon Perle) 100 Mg Capsule 100-200 MG PO Q6H PRN for COUGH, #30 CAP 0 Refills Prov: JONO RAINES 06/08/18 Albuterol Sulfate (PROAIR HFA) 1 Puff Puff 2 PUFF IH Q4H PRN for WHEEZING, #1 EA 0 Refills 1 PUFF = 90 MCG Prov: JONO RAINES 06/08/18 Ondansetron (Ondansetron Odt) 4 Mg Tab.rapdis 4 MG PO Q6H PRN for NAUSEA/VOMITING, #8 TAB 0 Refills Prov: JONO RAINES 06/08/18 JONO RAINES Jun 08, 2018 15:07
[2018-06-08] MEDS ORDERED: RT-ALBUTEROL/IPRATROPIUM 3 ML (DUONEB) VIAL INH ONE (15:15)
[2018-06-08] MEDS ORDERED: BENZ-13 PO (15:36)
[2018-06-08] MEDS ORDERED: RT-ALBUINH IH (15:36)
[2018-06-08] MEDS ORDERED: ONDA4TAB11 PO (15:36)
[2018-06-08] MEDS ORDERED: [UNRECOGNIZED DRUG - CODE] MC (15:36)
[2018-06-08 15:43] VITALS: BP 158/67
== END 2018-06-08 15:50 | disposition home or self-care (01) ==
LOC: EDUNIT# 14:23 → ER FS 14:25
DX: J11.1 Influenza due to unidentified influenza virus with other respiratory manifestations (principal); F05 Delirium due to known physiological condition; J44.9 Chronic obstructive pulmonary disease, unspecified; E11.9 Type 2 diabetes mellitus without complications; F17.210 Nicotine dependence, cigarettes, uncomplicated; Z79.4 Long term (current) use of insulin
CPT/HCPCS: 87804

== ENCOUNTER → 2018-06-21 | Outpatient (CLI) | payer SELFPAY ==
[~2018-06-21] MED LIST changes: +BENZ-13 PO; +ONDA4TAB11 PO; +RT-ALBUINH IH; +[UNRECOGNIZED DRUG - CODE] MC
[2018-06-21 15:47] LABS: COLOR,URINE YELLOW
[2018-06-21 15:48] LABS: BILIRUBIN,URINE NEGATIVE (NEGATIVE); CLARITY,URINE CLEAR; GLUCOSE, URINE (UA) NEGATIVE (NEGATIVE); KETONES,URINE NEGATIVE (NEGATIVE); LEUKOCYTE ESTERASE ,URINE NEGATIVE (NEGATIVE); NITRITE,URINE NEGATIVE (NEGATIVE); PH,URINE 5.5 (5-9); PROTEIN,URINE 2+ (NEGATIVE); UROBILINOGEN,URINE 0.2 MG/DL (NORMAL)
[2018-06-21 15:52] LABS: HEMATOCRIT 34 % (35-52); HEMOGLOBIN 11.5 G/DL (11.5-16.0); MEAN CORPUSCULAR HEMOGLOBIN 31 PG (25-34); MEAN CORPUSCULAR HGB CONC 34 G/DL (32-36); MEAN CORPUSCULAR VOLUME 90 FL (80-99); PLATELET COUNT 188 10^3/uL (130-400); RED CELL DISTRIBUTION WIDTH 12.8 % (10.0-14.5); WHITE BLOOD COUNT 8.2 10^3/uL (4.3-11.0)
[2018-06-21 15:53] LABS: BASOPHILS % (AUTO) 0 % (0-10); EOSINOPHILS # (AUTO) 0.3 10^3/uL (0.0-0.3); EOSINOPHILS % (AUTO) 3 % (0-10); LYMPHOCYTES % (AUTO) 12 % (12-44); MEAN PLATELET VOLUME 10.3 FL (7.4-10.4); MONOCYTES # (AUTO) 0.5 X 10^3 (0.0-1.0); MONOCYTES % (AUTO) 6 % (0-12); NEUTROPHILS # (AUTO) 6.4 X 10^3 (1.8-7.8); NEUTROPHILS % (AUTO) 78 % (42-75)
[2018-06-21 20:29] LABS: PHOSPHORUS 4.7 MG/DL (2.3-4.7)
[2018-06-22 07:07] LABS: ALBUMIN 3.7 GM/DL (3.2-4.5); CALCIUM 9.6 MG/DL (8.5-10.1); CREATININE SERUM 1.65 MG/DL (0.60-1.30)
== END ==
LOC: LAB FS 14:44
PROVIDERS: ATTEND Internal Medicine
DX: I12.9 Hypertensive chronic kidney disease with stage 1 through stage 4 chronic kidney disease, or unspecified chronic kidney disease (principal); N18.3 Chronic kidney disease, stage 3 (moderate); E11.22 Type 2 diabetes mellitus with diabetic chronic kidney disease
CPT/HCPCS: 36415; 80069; 81000; 82043; 82570; 83036; 84156; 85025; 85027

== ENCOUNTER 2018-07-27 22:54 | Inpatient (IN) | payer SELFPAY ==
[~2018-07-27] VITALS: Ht 157.5 cm; Wt 81.3 kg
[2018-07-27 23:15] LABS: BASOPHILS % (AUTO) 1 % (0-10); EOSINOPHILS # (AUTO) 0.2 10^3/uL (0.0-0.3); EOSINOPHILS % (AUTO) 3 % (0-10); HEMATOCRIT 31 % (35-52); HEMOGLOBIN 10.7 G/DL (11.5-16.0); LYMPHOCYTES # (AUTO) 1.2 X 10^3 (1.0-4.0); LYMPHOCYTES % (AUTO) 19 % (12-44); MEAN CORPUSCULAR HEMOGLOBIN 31 PG (25-34); MEAN CORPUSCULAR HGB CONC 34 G/DL (32-36); MEAN CORPUSCULAR VOLUME 89 FL (80-99); MEAN PLATELET VOLUME 10.7 FL (7.4-10.4); MONOCYTES # (AUTO) 0.4 X 10^3 (0.0-1.0); MONOCYTES % (AUTO) 7 % (0-12); NEUTROPHILS # (AUTO) 4.5 X 10^3 (1.8-7.8); NEUTROPHILS % (AUTO) 71 % (42-75); PLATELET COUNT 131 10^3/uL (130-400); RED CELL DISTRIBUTION WIDTH 13.3 % (10.0-14.5); WHITE BLOOD COUNT 6.3 10^3/uL (4.3-11.0)
--- NOTE | 2018-07-27 23:23 | NUR ---
pt states she takes 2 baby aspirins daily and is on brilinta so ems did not give asa.
[2018-07-27 23:28] LABS: INR 0.9 (0.8-1.4); PROTHROMBIN TIME PATIENT 12.6 SEC (12.2-14.7)
[2018-07-27 23:34] LABS: CALCIUM 8.6 MG/DL (8.5-10.1); CREATININE SERUM 1.62 MG/DL (0.60-1.30); MAGNESIUM 1.9 MG/DL (1.8-2.4); POTASSIUM 3.6 MMOL/L (3.6-5.0)
[2018-07-27 23:35] LABS: ALBUMIN 3.8 GM/DL (3.2-4.5); BILIRUBIN,TOTAL 0.4 MG/DL (0.1-1.0); TOTAL PROTEIN 7.2 GM/DL (6.4-8.2)
--- NOTE | 2018-07-27 23:37 | ED Chest Pain ---
General Chief Complaint: Chest Pain Nursing Triage Note: pt states burning chest pain started 1 hr ago, did take 1 nitro at home, pain relieved by the time ems arrived. no co pain upon arrival to ed, pt states she ate [employer] tonight and has acid reflux. pt noted to be lethargic tonight states she took her sleeping pill earlier. Nursing Sepsis Screen: No Definite Risk Source: patient Exam Limitations: no limitations History of Present Illness Date Seen by Provider: July 27, 2018 Time Seen by Provider: 23:08 Initial Comments Here with central chest pain that she states felt like burning. Started about an hour ago she did take a nitroglycerin at home. This did improve her pain. Pain i s currently gone. Does have history of cardiac disease and prior stents as well as previous events. Does admit to eating [employer] tonight. States overall she feels better and came on the advice of her family. She would like to go home possible tonight. She apparently took her night meds including her amitriptyline and this makes her little drowsy. She is currently drowsy. 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 po COLLECTIONS ASSOCIATE: Yes (takes 162 mg daily including today) NTG SL COLLECTIONS ASSOCIATE: Yes (1) Associated Symptoms: No abdominal pain, No back pain, No diaphoresis, No dizziness, No fever/chills, No nausea/vomiting, No shortness of breath, No weakness Allergies and Home Medications Allergies Coded Allergies: No Known Drug Allergies (Unverified , 07/27/18) Home Medications Albuterol Sulfate 1 Puff Puff, 2 PUFF IH Q4H PRN for WHEEZING 1 PUFF = 90 MCG Prescribed by: JONO RAINES on 06/08/18 1536 Amitriptyline HCl 100 Mg Tablet, 100 MG PO HS, (Reported) Benzonatate 100 Mg Capsule, 100-200 MG PO Q6H PRN for COUGH Prescribed by: JONO RAINES on 06/08/18 1536 Biotin 1,000 Mcg Tablet, 1,000 MCG PO DAILY, (Reported) Calcium Carbonate/Vitamin D3 1 Each Tablet, 1 TAB PO DAILY, (Reported) Eucalyptus/Menthol 1 Each Lozenge, 1 ELVA MM Q2H PRN for COUGH, (Reported) Furosemide 40 Mg Tablet, 40 MG PO DAILY, (Reported) LAST FILLED #30 09-14-17 Gabapentin 100 Mg Capsule, 300 MG PO DAILY PRN for NERVE PAIN, (Reported) Insulin Glargine,Hum.rec.anlog 100 Unit/1 Ml Insuln.pen, 40 UNIT SQ BID, (Reported) Insulin Lispro 100 Unit/1 Ml Insuln.pen, 40 UNIT SQ AC, (Reported) Isosorbide Mononitrate 60 Mg Tab, 60 MG PO DAILY, (Reported) Levothyroxine Sodium 88 Mcg Tablet, 88 MCG PO DAILY, (Reported) Lisinopril 20 Mg Tablet, 20 MG PO DAILY, (Reported) Lovastatin 20 Mg Tablet, 20 MG PO HS, (Reported) Metoprolol Succinate 50 Mg Tab.er.24h, 50 MG PO BID, (Reported) [place] 3 Polyunsat Fatty Acids 1,000 Mg Cap, 1,000 MG PO DAILY, (Reported) Ondansetron 4 Mg Tab.rapdis, 4 MG PO Q6H PRN for NAUSEA/VOMITING Prescribed by: JONO RAINES on 06/08/18 1536 Potassium Chloride 10 Meq Tab.er.prt, 10 MEQ PO DAILY, (Reported) LAST FILLED #30 09-07-17 Patient Home Medication List Home Medication List Reviewed: Yes Review of Systems Review of Systems Constitutional: see HPI; No chills, No fever EENTM: No Symptoms Reported Respiratory: No Symptoms Reported Cardiovascular: See HPI, Chest Pain; Denies Edema, Denies Lightheadedness Gastrointestinal: Denies Constipated, Denies Diarrhea, Denies Nausea, Denies Vomiting Genitourinary: No Symptoms Reported Musculoskeletal: no symptoms reported Skin: no symptoms reported All Other Systems Reviewed Negative Unless Noted: Yes Past Hfqcvih-Vuvdkh-Wpgney Hx Past Med/Social Hx: Reviewed Nursing Past Med/Soc Hx Patient Social History Alcohol Use: Denies Use Recreational Drug Use: No Smoking Status: Current Everyday Smoker Type Used: Cigarettes 2nd Hand Smoke Exposure: No Recent Foreign Travel: No Contact w/Someone Who Travel: No Recent Infectious Disease Expo: No Recent Hopitalizations: No Physical Abuse: No Sexual Abuse: No Mistreated: No Fear: No Immunizations Up To Date Date of Pneumonia Vaccine: Mar 09, 2016 Seasonal Allergies Seasonal Allergies: No Past Medical History Surgeries: Yes Coronary Stent, Hysterectomy Respiratory: No Cardiac: Yes Heart Attack Neurological: No Sexually Transmitted Disease: No HIV/AIDS: No Genitourinary: No Gastrointestinal: Yes Gastroesophageal Reflux Musculoskeletal: No Endocrine: Yes Diabetes, Non-Insulin dep HEENT: No Cancer: No Psychosocial: No Integumentary: No Psoriasis Blood Disorders: No Adverse Reaction/Blood Tranf: No Family Medical History Reviewed Nursing Family Hx Physical Exam Vital Signs Vital Signs - First Documented 07/27/18 23:02 Temp 96.9 Pulse 63 Resp 23 B/P (MAP) 121/45 (70) Pulse Ox 95 O2 Delivery Room Air Capillary Refill : Less Than 3 Seconds Height, Weight, BMI Height: 5'2.00" Weight: 176lbs. 0.0oz. 79.217235xl; 33.8 BMI Method:Stated General Appearance: No Apparent Distress, WD/WN HEENT: PERRL/EOMI, Pharynx Normal Neck: Non Tender, Supple Respiratory: Lungs Clear, Normal Breath Sounds Cardiovascular: Regular Rate, Rhythm, No Murmur Gastrointestinal: Non Tender, Soft Extremity: Normal Range of Motion, Non Tender Neurologic/Psychiatric: Alert, Oriented x3 Skin: Normal Color, Warm/Dry Procedures/Interventions Date of ETT Placement: Feb 01, 2018 Time of ETT Placement: 1613 Progress/Results/Core Measures Results/Orders Lab Results Laboratory Tests Test 07/27/18 23:06 07/28/18 01:03 Range/Units White Blood Count 6.3 4.3-11.0 10^3/uL Red Blood Count 3.49 L 4.35-5.85 10^6/uL Hemoglobin 10.7 L 11.5-16.0 G/DL Hematocrit 31 L 35-52 % Mean Corpuscular Volume 89 80-99 FL Mean Corpuscular Hemoglobin 31 25-34 PG Mean Corpuscular Hemoglobin Concent 34 32-36 G/DL Red Cell Distribution Width 13.3 10.0-14.5 % Platelet Count 131 130-400 10^3/uL Mean Platelet Volume 10.7 H 7.4-10.4 FL Neutrophils (%) (Auto) 71 42-75 % Lymphocytes (%) (Auto) 19 12-44 % Monocytes (%) (Auto) 7 0-12 % Eosinophils (%) (Auto) 3 0-10 % Basophils (%) (Auto) 1 0-10 % Neutrophils # (Auto) 4.5 1.8-7.8 X 10^3 Lymphocytes # (Auto) 1.2 1.0-4.0 X 10^3 Monocytes # (Auto) 0.4 0.0-1.0 X 10^3 Eosinophils # (Auto) 0.2 0.0-0.3 10^3/uL Basophils # (Auto) 0.0 0.0-0.1 10^3/uL Prothrombin Time 12.6 12.2-14.7 SEC INR Comment 0.9 0.8-1.4 Activated Partial Thromboplast Time 30 24-35 SEC Sodium Level 134 L 135-145 MMOL/L Potassium Level 3.6 3.6-5.0 MMOL/L Chloride Level 97 L 98-107 MMOL/L Carbon Dioxide Level 22 21-32 MMOL/L Anion Gap 15 H 5-14 MMOL/L Blood Urea Nitrogen 41 H 7-18 MG/DL Creatinine 1.62 H 0.60-1.30 MG/DL Estimat Glomerular Filtration Rate 32 BUN/Creatinine Ratio 25 Glucose Level 265 H 70-105 MG/DL Calcium Level 8.6 8.5-10.1 MG/DL Corrected Calcium 8.8 8.5-10.1 MG/DL Magnesium Level 1.9 1.8-2.4 MG/DL Total Bilirubin 0.4 0.1-1.0 MG/DL Aspartate Amino Transf (AST/SGOT) 16 5-34 U/L Alanine Aminotransferase (ALT/SGPT) 17 0-55 U/L Alkaline Phosphatase 84 40-136 U/L Myoglobin 76.4 103.3 H 10.0-92.0 NG/ML Troponin T 60 H 66 H <=10 NG/L Total Protein 7.2 6.4-8.2 GM/DL Albumin 3.8 3.2-4.5 GM/DL Lipase 19 8-78 U/L My Orders Orders - IZAIAH RODRÍGUEZ MD Cbc With Automated Diff (07/27/18 23:06) Magnesium (07/27/18 23:06) Chest 1 View Ap/Pa Only (07/27/18 23:06) Ekg Tracing (07/27/18 23:06) Comprehensive Metabolic Panel (07/27/18 23:06) Myoglobin Serum (07/27/18 23:06) Protime With Inr (07/27/18 23:06) Partial Thromboplastin Time (07/27/18 23:06) O2 (07/27/18 23:06) Monitor-Rhythm Ecg Trace Only (07/27/18 23:06) Lipid Panel (07/28/18 06:00) Ed Iv/Invasive Line Start (07/27/18 23:06) Lipase (07/27/18 23:06) Troponin T (07/27/18 23:06) Ua Culture If Indicated (07/28/18 00:01) Myoglobin Serum (07/28/18 00:56) Troponin T (07/28/18 00:56) Ed Iv/Invasive Line Start (07/28/18 01:45) Ns Iv 500 Ml (Sodium Chloride 0.9%) (07/28/18 01:45) Enoxaparin Injection (Lovenox Injection) (07/28/18 02:15) Medications Given in ED Current Medications Medications Dose Ordered Sig/[place] Route Start Time Stop Time Status Last Admin Dose Admin Enoxaparin Sodium 80 mg ONCE ONCE SC 07/28/18 02:15 07/28/18 02:16 DC 07/28/18 02:07 80 MG Sodium Chloride 500 ml @ 0 mls/hr Q0M ONCE IV 07/28/18 01:45 07/28/18 01:48 DC 07/28/18 02:03 999 MLS/HR Vital Signs/I&O 07/27/18 23:02 Temp 96.9 Pulse 63 Resp 23 B/P (MAP) 121/45 (70) Pulse Ox 95 O2 Delivery Room Air Blood Pressure Mean: 70 Progress Progress Note : Progress Note Seen and evaluated. IV, labs, EKG, chest x-ray ordered. Patient is pain-free so nitroglycerin held. Patient are had aspirin today. Monitor patient. 0002: I have discussed the case with the daughter. She states that the patient has been acting more tired recently. Patient is sleeping tonight but admits to taking her sleeping pill. We will go ahead and check a UA. Troponin is elevated. We will recheck that and see its a trend another hour. She is not having active chest pain. Overall resting peacefully currently. Monitor patient. 0150: Troponin and myoglobin are back and are both elevated from previous. This causes concerns for non-ST elevation DE. Patient is still chest pain-free. I did discuss the case with Dr. Buenrostor. He agrees with my concerns. He will accept patient in transfer and consult. We do need an ICU stay/stepdown bed and he is checking to make sure we can place the patient in stepdown or ICU. 0203: We do have a stepdown bed available. Dr. Buenrostro would like the patient to get Lovenox weight-based dosing. 80 mg subcutaneous ordered. Patient is on metoprolol XL 50 mg by mouth and has taken her meds. She has had her aspirin today. We will continue metoprolol, aspirin and Brilinta. I did discuss the case with Dr. GARCIA and he accepts patient for admission. Observation status. We will do sliding scale insulin. Patient and family notified and agree with plan. Computer Forensics Analyst is Dr. Dudley at [facility]. Initial ECG Impression Date: July 27, 2018 Initial ECG Impression Time: 23:00 Initial ECG Rate: 58 Initial ECG Rhythm: Normal Sinus Comment Sinus rhythm with left ventricular hypertrophy. Normal axis. Overall unchanged from 02/03/18. Interpreted by me. Diagnostic Imaging Diagonstic Imaging: Xray Plain Films/CT/US/NM/MRI: chest Comments Enlarged cardiac silhouette with mild vascular congestion Reviewed: Reviewed by Me Departure Communication (Admissions) Time/Spoke to Admitting Phy: 02:03 Time/Spoke to Consulting Phy: 01:50 Impression Primary Impression: Non-ST elevation DE (NSTEMI) Disposition: ADMITTED INPATIENT Condition: Stable Admissions Decision to Admit Reason: Admit from ER (General) Decision to Admit/Date: July 28, 2018 Time/Decision to Admit Time: 01:50 Departure-Patient Inst. Referrals: NO,LOCAL PHYSICIAN (PCP/Family) Primary Care Physician IZAIAH RODRÍGUEZ MD July 27, 2018 23:37
[2018-07-28] VITALS (13 sets, daily range): BP systolic 110–175; BP diastolic 42–77
[2018-07-28] MEDS ORDERED: NS IV 500 ML 500 ML IV ONE (01:45)
[2018-07-28] MEDS ORDERED: ENOXAPARIN 80 MG/0.8 ML (LOVENOX) SYR SC ONE (02:15)
[2018-07-28 04:32] LABS: BASOPHILS % (AUTO) 0 % (0-10); EOSINOPHILS # (AUTO) 0.2 10^3/uL (0.0-0.3); EOSINOPHILS % (AUTO) 3 % (0-10); HEMATOCRIT 31 % (35-52); HEMOGLOBIN 10.9 G/DL (11.5-16.0); LYMPHOCYTES # (AUTO) 1.1 X 10^3 (1.0-4.0); LYMPHOCYTES % (AUTO) 13 % (12-44); MEAN CORPUSCULAR HEMOGLOBIN 31 PG (25-34); MEAN CORPUSCULAR HGB CONC 35 G/DL (32-36); MEAN CORPUSCULAR VOLUME 89 FL (80-99); MEAN PLATELET VOLUME 10.3 FL (7.4-10.4); MONOCYTES # (AUTO) 0.6 X 10^3 (0.0-1.0); MONOCYTES % (AUTO) 7 % (0-12); NEUTROPHILS # (AUTO) 6.7 X 10^3 (1.8-7.8); NEUTROPHILS % (AUTO) 78 % (42-75); PLATELET COUNT 135 10^3/uL (130-400); RED CELL DISTRIBUTION WIDTH 13.3 % (10.0-14.5); WHITE BLOOD COUNT 8.6 10^3/uL (4.3-11.0)
[2018-07-28 04:53] LABS: ALBUMIN 3.8 GM/DL (3.2-4.5); BILIRUBIN,TOTAL 0.4 MG/DL (0.1-1.0); CREATININE SERUM 1.89 MG/DL (0.60-1.30); POTASSIUM 4.3 MMOL/L (3.6-5.0); TOTAL PROTEIN 7.4 GM/DL (6.4-8.2)
[2018-07-28] MEDS ORDERED: RT-ALBUTEROL/IPRATROPIUM 3 ML (DUONEB) VIAL INH PRN (05:00)
[2018-07-28] MEDS ORDERED: NITROGLYCERIN 0.4 MG SL TABS BTL 25'S SL PRN ×2 (05:15→18:30)
[2018-07-28] MEDS ORDERED: morphine INJ 4 MG/ML 1 ML (VIAL/SYRINGE) IV PRN (05:15)
[2018-07-28] MEDS ORDERED: ONDANSETRON 4 MG/2 ML (SDV) Z0FRAN IV PRN (05:15)
[2018-07-28] MEDS: inSUlin ASPART (NovoLOG) 1 UNIT/0.01 ML (CHARGE PER UNIT) SC SCH ×4 (05:44→21:41)
--- NOTE | 2018-07-28 07:34 | Diagnostic Imaging Report ---
Indication: Chest pain. Comparison made with prior examination from 02/03/2018. Findings: Heart size upper limits normal. There is mild venous congestion. There is no pleural effusion, pneumothorax or pneumonia. Impression: Mild central venous congestion, otherwise unremarkable. Dictated by: Dictated on workstation # [id number]
[2018-07-28] MEDS: NS IV 1000 ML 1,000 ML IV SCH (07:56)
[2018-07-28] MEDS: TICAGRELOR 90 MG TABLET (BRILINTA) PO SCH ×2 (08:21→20:37)
[2018-07-28] MEDS: RT-ALBUTEROL/IPRATROPIUM 3 ML (DUONEB) VIAL INH SCH ×3 (08:35→21:01)
[2018-07-28 08:41] LABS: CHOLESTEROL 141 MG/DL (< 200); HDL CHOLESTEROL 24 MG/DL (40-60); TRIGLYCERIDES 361 MG/DL (<150); VLDL CHOLESTEROL 72 MG/DL (5-40)
[2018-07-28] MEDS ORDERED: ASPIRIN E.C. 81 MG (ECOTRIN) TAB PO SCH (09:00)
[2018-07-28] MEDS ORDERED: meTOproloL SUCCINATE 50 MG (TOPROL XL) TAB PO SCH ×2 (09:00→21:00)
--- NOTE | 2018-07-28 09:57 | Consultation-Cardiology ---
HPI-Cardiology Cardiology Consultation: Date of Consultation 07/28/18 Time Seen by a Provider: 09:00 Date of Admission 07-27-18 Attending Physician Blake Paul MD Admitting Physician Nigel Sanz MD Consulting Physician Tony Buenrostro MD Primary Healthcare Facility Administrator: Dr. Sanz ([facility]) HPI: Chief Complaint: Chest pain Ms. Collins is a 63 year old female admitted to ICU 4 from ED. Her daughter is at the bedside. Her daughter reports around 10 p.m. last night she was called by her mother to come and give her a bath. She states her mother seemed confused and disoriented on the phone. She reports she went to her mothers house and EMS had already arrived. She states the son whom the patient lives with had called EMS d/t pt feeling unwell, confusion and c/o CP. Pt is a poor historian. She states she did not feel well all day yesterday. She reports feeling weak and tired. She states last night she began to have chest pain in her lower chest, which was localized. She describes it as a heaviness, burning sensation. She reports nausea and diaphoresis. She states she took a nitro and by the time EMS arrived the pain was gone. She denies any c/o dyspnea. She reports a feeling of a fast heart beat at the time. She denies any syncope or near syncope. She reports no further c/o CP. She states she had recent stenting done by Dr. Sanz at [facility] in Jan 2018. She reports she has not missed any doses of Brilinta or ASA. She reports she has been without her Seroquel for a few days. She continues to smoke cigs, approx 2 PPD. She denies any LE swelling. Review of Systems-Cardiology Review of Systems Constitutional: No chills, No fever; malaise Eyes: No vision change Ears/Nose/Throat: No epistaxis, No recent hearing loss Respiratory: As described under HPI Cardiovascular: As described under HPI Gastrointestinal: No constipation, No diarrhea; nausea; No vomiting Genitourinary: No dysuria, No hematuria Skin: No rash, No ulcerations Psychiatric/Neurological: No focal weakness, No syncope Hematologic: No bleeding abnormalities All Other Systems Reviewed Negative Unless Noted: Yes ZBC-Bhjydm-Jlffbh Hx Patient Social History Alcohol Use: Denies Use Recreational Drug Use: No Smoking Status: Current Everyday Smoker Type Used: Cigarettes 2nd Hand Smoke Exposure: No Recent Foreign Travel: No Recent Infectious Disease Expo: No Hospitalization with Isolation: Denies Immunizations Up To Date Date of Pneumonia Vaccine: Mar 09, 2016 Past Medical History PMH As described under Assessment. Family Medical History Family Medical History: She reports her father and sister both had CAD with AK between ages 40-60. Allergies and Home Medications Allergies Coded Allergies: No Known Drug Allergies (Unverified , 07/27/18) Home Medications Albuterol Sulfate 18 Gm Hfa.aer.ad, 2 PUFF INH Q4H PRN for SHORTNESS OF BREATH, (Reported) Amitriptyline HCl 100 Mg Tablet, 100 MG PO HS, (Reported) Amlodipine Besylate 10 Mg Tablet, 10 MG PO DAILY, (Reported) Aspirin 81 Mg Tablet.dr, 81 MG PO DAILY, (Reported) Atorvastatin Calcium 40 Mg Tablet, 40 MG PO DAILY, (Reported) Bumetanide 1 Mg Tablet, 1 MG PO DAILY, (Reported) Calcium Carbonate/Vitamin D3 1 Each Tablet, 1 TAB PO DAILY, (Reported) Carvedilol 25 Mg Tablet, 25 MG PO BID, (Reported) Insulin Glargine,Hum.rec.anlog 100 Unit/1 Ml Insuln.pen, 40 UNIT SQ BID, (Reported) Insulin Lispro 100 Unit/1 Ml Insuln.pen, 40 UNIT SQ BID WITH MEALS, (Reported) Isosorbide Mononitrate 60 Mg Tab, 60 MG PO DAILY, (Reported) LAST FILLED #90 04-14-18 Levothyroxine Sodium 88 Mcg Tablet, 88 MCG PO DAILY, (Reported) LAST FILLED #90 04-14-18 Lisinopril 30 Mg Tablet, 30 MG PO HS, (Reported) Metoprolol Succinate 50 Mg Tab.er.24h, 50 MG PO BID, (Reported) Nitroglycerin 0.4 Mg Tab.subl, 0.4 MG SL UD PRN for CHEST PAIN, (Reported) [place] 3 Polyunsat Fatty Acids 1,000 Mg Cap, 1,000 MG PO DAILY, (Reported) Quetiapine Fumarate 100 Mg Tablet, 100 MG PO HS, (Reported) Ticagrelor 90 Mg Tablet, 90 MG PO BID, (Reported) Physical Exam-Cardiology Physical Exam Vital Signs/I&O 07/28/18 07/28/18 07/28/18 07/28/18 21:00 21:00 21:01 22:00 Pulse 77 84 Resp 21 13 B/P (MAP) 164/69 (100) 175/72 (106) Pulse Ox 96 95 90 O2 Delivery Room Air Room Air Room Air Room Air 07/28/18 07/28/18 07/29/18 07/29/18 23:00 23:13 00:00 00:09 Temp 97.9 Pulse 75 48 49 49 Resp 20 13 21 B/P (MAP) 142/64 (90) 126/45 (72) 130/50 (76) Pulse Ox 93 94 94 O2 Delivery Room Air Room Air Room Air 07/29/18 07/29/18 07/29/18 07/29/18 00:10 01:00 01:00 02:00 Pulse 50 50 47 Resp 19 29 B/P (MAP) 172/70 (104) 142/57 (85) Pulse Ox 92 93 O2 Delivery Room Air Room Air Room Air 07/29/18 07/29/18 07/29/18 07/29/18 02:50 03:00 04:00 04:02 Temp 97.4 Pulse 47 50 Resp 21 18 B/P (MAP) 129/53 (78) 150/52 (84) Pulse Ox 97 95 97 O2 Delivery Room Air Room Air Room Air Room Air 07/29/18 07/29/18 07/29/18 07/29/18 05:00 06:00 07:00 08:00 Pulse 76 74 75 91 Resp 20 18 33 B/P (MAP) 161/58 (92) 153/62 (92) Pulse Ox 100 93 O2 Delivery Room Air Room Air Room Air 07/29/18 08:00 Temp 96.4 07/29/18 00:00 Intake Total 780 ml Output Total 600 ml Balance 180 ml Capillary Refill : Less Than 3 Seconds Constitutional: AAO x 3, well-developed HEENT: PERRL, hearing is well preserved Neck: No carotid bruit; carotid pulses are 2 + bilaterally Respiratory: chest expansion is symmetric, chest is bilaterally symmetric, lungs clear to auscultation, rhonchi (scattered; prolonged expiratory phase) Cardiovascular: regular rate-rhythm; No JVD; S1 and S2 Gastrointestinal: No tender; soft, round, audible bowel sounds Extremities: no lower extremity edema bilateral Neurologic/Psychiatric: grossly intact Skin: No rash, No ulcerations Data Review Labs Laboratory Tests 07/28/18 09:20: Urine Color YELLOW, Urine Clarity CLEAR, Urine pH 5, Urine Specific [place] 1.010L, Urine Protein 3+H, Urine Glucose (UA) 1+H, Urine Ketones NEGATIVE, Urine Nitrite NEGATIVE, Urine Bilirubin NEGATIVE, Urine Urobilinogen NORMAL, Urine Leukocyte Esterase 1+H, Urine RBC (Auto) NEGATIVE, Urine RBC NONE, Urine WBC 2- 5, Urine Squamous Epithelial Cells 25-50H, Urine Crystals NONE, Urine Bacteria TRACE, Urine Casts NONE, Urine Mucus NEGATIVE, Urine Culture Indicated NO 07/28/18 10:05: Troponin I < 0.028 07/28/18 11:00: Glucometer 158H 07/28/18 15:10: Glucometer 228H 07/28/18 20:45: Glucometer 244H 07/29/18 06:04: Glucometer 143H Radiology NAME: BRIGID COLLINS [facility] REC#: [id number] PT STATUS: ADM Gus : 1955 PHYSICIAN: IZAIAH RODRÍGUEZ MD ADMIT DATE: 07/28/18/ICU Draft Date of Exam:07/27/18 CHEST 1 VIEW AP/PA ONLY Indication: Chest pain. Comparison made with prior examination from 02/03/2018. Findings: Heart size upper limits normal. There is mild venous congestion. There is no pleural effusion, pneumothorax or pneumonia. Impression: Mild central venous congestion, otherwise unremarkable. Dictated on workstation # [id number] Dict: 07/28/18 0728 Trans: 07/28/18 0733 [facility] [id number] Interpreted by: EVE GILMORE MD Electronically signed by: ECG Impression ECG Initial ECG Rhythm: Normal Sinus A/P-Cardiology Assessment/Admission Diagnosis Chest pain of undetermined etiology CAD - Severe three-vessel disease including distal left main, ostial LAD, proximal left circumflex artery stenosis. Chronic total occlusion of the ostial RCA supplied by collaterals from the left coronary system. LVEF 50% with inferior akinesis. LVEDP is 17 mmHg. per cardiac cath of Jan [address] Merino. Subsequently transferred to [facility] for further eval for PCI vs CABG. Per pt she had stenting done by Dr. Sanz at [facility] in [place], [place], Jan 2018 - exact details unknown - Brilinta and ASA PAD - Bilateral ostial SFA occlusions seen on angiogram of Jan [address] Alicia cormier - being followed by Dr. Sanz HTN HLD - statin tx CKD - stage 3 DM 2 Diabetic neuropathy COPD Tobaccoism - cessation advised Depression Discussion and Recomendations Chest pain of undetermined etiology Known h/o CAD which has been treated with PCI [place] Jan [address] Sanz - request records Continue ASA, Brilinta, statin, BB and antihypertensives Per medication bottles brought in by pt she has been taking Toprol XL and Coreg - this places her at risk for bradycardia and hypotension - we will stop the Toprol and continue the Coreg CKD with acute on chronic renal insufficiency - hold diuretics Monitor lab Further recs will be based on her hospital course We would like to thank medical services for this consult Clinical Quality Measures AMI/AHF: ASA po Prior to arrival: Yes (takes 162 mg daily including today) FENG NEGRON July 28, 2018 09:57
[2018-07-28] MEDS ORDERED: PANTOPRAZOLE 40 MG (PROTONIX) VIAL IV NR (10:27)
[2018-07-28 10:44] LABS: BACTERIA,URINE TRACE /HPF; BILIRUBIN,URINE NEGATIVE (NEGATIVE); CLARITY,URINE CLEAR; COLOR,URINE YELLOW; GLUCOSE, URINE (UA) 1+ (NEGATIVE); KETONES,URINE NEGATIVE (NEGATIVE); LEUKOCYTE ESTERASE ,URINE 1+ (NEGATIVE); NITRITE,URINE NEGATIVE (NEGATIVE); PH,URINE 5 (5-9); PROTEIN,URINE 3+ (NEGATIVE); SQUAMOUS EPITHELIAL CELL,UR 25-50 /HPF; UROBILINOGEN,URINE NORMAL (NORMAL)
[2018-07-28] MEDS ORDERED: ATOR40TA70 PO (11:05)
[2018-07-28] MEDS ORDERED: CARV25TA PO (11:05)
[2018-07-28] MEDS ORDERED: QUET100T69 PO (11:05)
[2018-07-28] MEDS ORDERED: NITR0.4T39 SL (11:05)
[2018-07-28] MEDS ORDERED: BUME1TAB4 PO (11:05)
[2018-07-28] MEDS ORDERED: LISI30TA5 PO (11:05)
[2018-07-28] MEDS ORDERED: AMLO10TA7 PO (11:05)
[2018-07-28] MEDS ORDERED: ASPI-983 PO (11:05)
[2018-07-28] MEDS ORDERED: TICA90TA PO (11:05)
[2018-07-28] MEDS ORDERED: ALBU18HF2 INH (11:05)
--- NOTE | 2018-07-28 11:06 | NUR ---
SPOKE WITH THE PATIENT ABOUT HER MEDICATIONS. SHE HAD MOST OF HER PRESCRIPTION BOTTLES WITH HER EXCEPT FOR HER INSULIN. SHE RECEIVES HER INSULIN THROUGH THE MAIL. SHE ALSO STATES SHE GETS SAMPLES OF HER BRILINTA THAT SHE PUT IN HER BOTTLE THAT WAS PREVIOUSLY FILLED AT [facility]. SHE IS PAST DUE FOR REFILL ON TWO MEDICATIONS BUT STILL HAS PILLS IN THE BOTTLE. I NOTED THE PAST DUE FILL DATE: 04-14-18 LEVOTHYROXINE 88MCG HS #90 04-14-18 ISOSORBIDE MONO ER 60MG DAILY #90
--- NOTE | 2018-07-28 11:21 | History & Physical-Hospitalist ---
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 She sees Dr. Sanz on a regular basis and just recently had a stent placement January of last year and continues to smoke but maintained on Bril inta and Aspirin. We will monitor her closely incase she ends up having acute coronary syndrome. Source: patient, family Exam Limitations: no limitations Date Seen 07/28/18 Time Seen by a Provider: 09:15 Attending Physician Blake Paul MD PCP Nigel Sanz MD Referring Physician Date of Admission July 28, 2018 at 01:47 Home Medications & Allergies Home Medications Reviewed patient Home Medication Reconciliation performed by pharmacy medication reconciliations blood bank laboratory technician and/or nursing. Patients Allergies have been reviewed. Allergies Allergies Coded Allergies No Known Drug Allergies (Unverified07/27/18) Past Wuzebgm-Pvwluq-Xrwakt Hx Past Med/Social Hx: Reviewed Nursing Past Med/Soc Hx, Reviewed and Corrections made Patient Social History Marrital Status: single Employed/Student: unemployed Alcohol Use: Denies Use Recreational Drug Use: No Smoking Status: Current Everyday Smoker Type Used: Cigarettes 2nd Hand Smoke Exposure: No Recent Foreign Travel: No Contact w/other who traveled: No Recent Hopitalizations: No Recent Infectious Disease Expo: No Immunizations Up To Date Date of Pneumonia Vaccine: Mar 09, 2016 Seasonal Allergies Seasonal Allergies: No Past Medical History Surgeries: Coronary Stent, Hysterectomy Respiratory: COPD Cardiac: Coronary Artery Disease, Heart Attack, Peripheral Vascular Neurological: Neuropathy Sexually Transmitted Disease: No HIV/AIDS: No Gastrointestinal: Gastroesophageal Reflux Endocrine: Diabetes, Non-Insulin dep Skin/Integumentary: Psoriasis History of Blood Disorders: No Adverse Reaction to Blood Umanzor: No Family History Reviewed Nursing Family Hx Review of Systems Constitutional: see HPI EENTM: no symptoms reported Respiratory: no symptoms reported Cardiovascular: chest pain, palpitations Gastrointestinal: no symptoms reported Genitourinary: no symptoms reported Musculoskeletal: no symptoms reported Skin: no symptoms reported Psychiatric/Neurological: Other (confused) Physical Exam Physical Exam Vital Signs Vital Signs - First Documented 07/27/18 23:02 Temp 96.9 Pulse 63 Resp 23 B/P (MAP) 121/45 (70) Pulse Ox 95 O2 Delivery Room Air Capillary Refill : Less Than 3 Seconds Height, Weight, BMI Height: 5'2.00" Weight: 180lbs. 3.2oz. 81.080894li; 32.2 BMI Method:Stated General Appearance: No Apparent Distress, WD/WN, Chronically ill, Obese Eyes: Right Eye Normal Inspection, Right Eye PERRL HEENT: PERRL/EOMI, Normal ENT Inspection, Pharynx Normal, Moist Mucous Membranes Neck: Full Range of Motion, Normal Inspection, Non Tender Respiratory: Chest Non Tender, Lungs Clear, Normal Breath Sounds, No Accessory Muscle Use, No Respiratory Distress Cardiovascular: Regular Rate, Rhythm, No Edema, No Gallop, No JVD, No Murmur, Normal Peripheral Pulses Gastrointestinal: Normal Bowel Sounds, No Organomegaly, No Pulsatile Mass, Non Tender, Soft Back: Normal Inspection, No CVA Tenderness, No Vertebral Tenderness Extremity: Normal Capillary Refill, Normal Inspection, Normal Range of Motion, Non Tender, No Calf Tenderness, No Pedal Edema Neurologic/Psychiatric: Alert, Oriented x3, No Motor/Sensory Deficits, Normal Mood/Affect, Disoriented Skin: Normal Color, Warm/Dry Lymphatic: No Adenopathy Results Results/Procedures Labs Laboratory Tests 07/27/18 23:06 07/28/18 04:22 Patient resulted labs reviewed. Assessment/Plan Admission Diagnosis Assessment: Chest pain CAD managed by Dr Pierson s/p recent stents placed 01/24 and maintained on antiplatelet therapy PAD HTN HLP CRI DM Neuropathy COPD Smoker Depression Plan: Smoking cessation Brilinta and ASA Cardiology management is appreciated Admission Status: Inpatient Order (span 2 midnights) Reason for Inpatient Admission: NSTEMI Diagnosis/Problems Diagnosis/Problems (1) Chest pain Status: Acute Qualifiers: Chest pain type: other chest pain Qualified Codes: R07.89 - Other chest pain (2) Non-ST elevation FL (NSTEMI) Status: Acute (3) COPD (chronic obstructive pulmonary disease) with acute bronchitis Status: Chronic (4) Multi-vessel coronary artery stenosis Status: Chronic (5) Delirium due to another medical condition Status: Acute (6) Smoker Status: Chronic Clinical Quality Measures AMI/AHF: ASA po Prior to arrival: Yes (takes 162 mg daily including today) DVT/VTE Risk/Contraindication: Risk Factor Score Per Nursin RFS Level Per Nursing on Admit: 4+=Very High ORIANA DIAZ DO July 28, 2018 11:21
--- NOTE | 2018-07-28 16:59 | Consultation-Cardiology ---
HPI-Cardiology Cardiology Consultation: Date of Consultation 07/28/18 Time Seen by a Provider: 09:20 Date of Admission Attending Physician Blake Paul MD Admitting Physician Nigel Sanz MD Consulting Physician JOSE MIGUEL ALCALA MD, MA, FACP, FACC, FSCAI, CCDS HPI: Chief Complaint: CC: Chest pain HPI Ms. Collins is a 63 year old female admitted to ICU 4 from ED. Her daughter is at the bedside. Her daughter reports around 10 p.m. last night she was called by her mother to come and give her a bath. She states her mother seemed confused and disoriented on the phone. She reports she went to her mothers house and EMS had already arrived. She states the son whom the patient lives with had called EMS d/t pt feeling unwell, confusion and c/o CP. Pt is a poor historian. She states she did not feel well all day yesterday. She reports feeling weak and tired. She states last night she began to have chest pain in her lower chest, which was localized. She describes it as a heaviness, burning sensation. She reports nausea and diaphoresis. She states she took a nitro and by the time EMS arrived the pain was gone. She denies any c/o dyspnea. She reports a feeling of a fast heart beat at the time. She denies any syncope or near syncope. She reports no further c/o CP. She states she had recent stenting done by Dr. Sanz at [facility] in Jan 2018. She reports she has not missed any doses of Brilinta or ASA. She reports she has been without her Seroquel for a few days. She continues to smoke cigs, approx 2 PPD. She denies any LE swelling. Review of Systems-Cardiology Review of Systems Constitutional: No chills, No fever; malaise Eyes: No vision change Ears/Nose/Throat: No epistaxis, No recent hearing loss Respiratory: As described under HPI Cardiovascular: As described under HPI Gastrointestinal: No constipation, No diarrhea; nausea; No vomiting Genitourinary: No dysuria, No hematuria Skin: No rash, No ulcerations Psychiatric/Neurological: No focal weakness, No syncope Hematologic: No bleeding abnormalities All Other Systems Reviewed Negative Unless Noted: Yes [id number] Hx Patient Social History Marrital Status: single Employed/Student: unemployed Alcohol Use: Denies Use Recreational Drug Use: No Smoking Status: Current Everyday Smoker Type Used: Cigarettes 2nd Hand Smoke Exposure: No Recent Foreign Travel: No Recent Infectious Disease Expo: No Hospitalization with Isolation: Denies Immunizations Up To Date Date of Pneumonia Vaccine: Mar 09, 2016 Past Medical History PMH As described under Assessment. Family Medical History Family Medical History: She reports her father and sister both had CAD with MT between ages 40-60. Allergies and Home Medications Allergies Coded Allergies: No Known Drug Allergies (Unverified , 07/27/18) Home Medications Albuterol Sulfate 18 Gm Hfa.aer.ad, 2 PUFF INH Q4H PRN for SHORTNESS OF BREATH, (Reported) Amitriptyline HCl 100 Mg Tablet, 100 MG PO HS, (Reported) Amlodipine Besylate 10 Mg Tablet, 10 MG PO DAILY, (Reported) Aspirin 81 Mg Tablet.dr, 81 MG PO DAILY, (Reported) Atorvastatin Calcium 40 Mg Tablet, 40 MG PO DAILY, (Reported) Bumetanide 1 Mg Tablet, 1 MG PO DAILY, (Reported) Calcium Carbonate/Vitamin D3 1 Each Tablet, 1 TAB PO DAILY, (Reported) Carvedilol 25 Mg Tablet, 25 MG PO BID, (Reported) Insulin Glargine,Hum.rec.anlog 100 Unit/1 Ml Insuln.pen, 40 UNIT SQ BID, (Reported) Insulin Lispro 100 Unit/1 Ml Insuln.pen, 40 UNIT SQ BID WITH MEALS, (Reported) Isosorbide Mononitrate 60 Mg Tab, 60 MG PO DAILY, (Reported) LAST FILLED #90 04-14-18 Levothyroxine Sodium 88 Mcg Tablet, 88 MCG PO DAILY, (Reported) LAST FILLED #90 04-14-19 Lisinopril 30 Mg Tablet, 30 MG PO HS, (Reported) Metoprolol Succinate 50 Mg Tab.er.24h, 50 MG PO BID, (Reported) Nitroglycerin 0.4 Mg Tab.subl, 0.4 MG SL UD PRN for CHEST PAIN, (Reported) [place] 3 Polyunsat Fatty Acids 1,000 Mg Cap, 1,000 MG PO DAILY, (Reported) Quetiapine Fumarate 100 Mg Tablet, 100 MG PO HS, (Reported) Ticagrelor 90 Mg Tablet, 90 MG PO BID, (Reported) Patient Home Medication List Home Medication List Reviewed: Yes Physical Exam-Cardiology Physical Exam Vital Signs/I&O 07/28/18 07/28/18 07/28/18 07/28/18 05:00 06:00 07:00 08:00 Pulse 53 60 61 Resp 18 20 B/P (MAP) 123/56 (78) 134/58 (83) Pulse Ox 96 96 96 O2 Delivery Room Air Room Air Room Air 07/28/18 07/28/18 07/28/18 07/28/18 08:00 08:35 09:00 12:00 Pulse 60 Resp 23 B/P (MAP) 131/52 (78) Pulse Ox 92 97 97 96 O2 Delivery Room Air Room Air Room Air Room Air 07/28/18 07/28/18 07/28/18 12:00 14:58 16:00 Temp 97.2 98.1 Pulse 66 Resp 15 B/P (MAP) 148/77 (100) Pulse Ox 96 98 O2 Delivery Room Air Room Air Capillary Refill : Less Than 3 Seconds Constitutional: AAO x 3, well-developed HEENT: PERRL, hearing is well preserved Neck: No carotid bruit; carotid pulses are 2 + bilaterally Respiratory: chest expansion is symmetric, chest is bilaterally symmetric, lungs clear to auscultation, rhonchi (scattered; prolonged expiratory phase) Cardiovascular: regular rate-rhythm; No JVD; S1 and S2 Gastrointestinal: No tender; soft, round, audible bowel sounds Extremities: no lower extremity edema bilateral Neurologic/Psychiatric: grossly intact Skin: No rash, No ulcerations Data Review Labs Laboratory Tests 07/27/18 23:06: White Blood Count 6.3, Red Blood Count 3.49L, Hemoglobin 10.7L, Hematocrit 31L, Mean Corpuscular Volume 89, Mean Corpuscular Hemoglobin 31, Mean Corpuscular Hemoglobin Concent 34, Red Cell Distribution Width 13.3, Platelet Count 131, Mean Platelet Volume 10.7H, Neutrophils (%) (Auto) 71, Lymphocytes (%) (Auto) 19, Monocytes (%) (Auto) 7, Eosinophils (%) (Auto) 3, Basophils (%) (Auto) 1, Neutrophils # (Auto) 4.5, Lymphocytes # (Auto) 1.2, Monocytes # (Auto) 0.4, Eosinophils # (Auto) 0.2, Basophils # (Auto) 0.0, Prothrombin Time 12.6, INR Comment 0.9, Activated Partial Thromboplast Time 30, Sodium Level 134L, Potassium Level 3.6, Chloride Level 97L, Carbon Dioxide Level 22, Anion Gap 15H, Blood Urea Nitrogen 41H, Creatinine 1.62H, Estimat Glomerular Filtration Rate 32, BUN/Creatinine Ratio 25, Glucose Level 265H, Calcium Level 8.6, Corrected Calcium 8.8, Magnesium Level 1.9, Total Bilirubin 0.4, Aspartate Amino Transf (AST/SGOT) 16, Alanine Aminotransferase (ALT/SGPT) 17, Alkaline Phosphatase 84, Myoglobin 76.4, Troponin T 60H, Total Protein 7.2, Albumin 3.8, Lipase 19 07/28/18 01:03: Myoglobin 103.3H, Troponin T 66H 07/28/18 04:22: White Blood Count 8.6, Red Blood Count 3.53L, Hemoglobin 10.9L, Hematocrit 31L, Mean Corpuscular Volume 89, Mean Corpuscular Hemoglobin 31, Mean Corpuscular Hemoglobin Concent 35, Red Cell Distribution Width 13.3, Platelet Count 135, Mean Platelet Volume 10.3, Neutrophils (%) (Auto) 78H, Lymphocytes (%) (Auto) 13, Monocytes (%) (Auto) 7, Eosinophils (%) (Auto) 3, Basophils (%) (Auto) 0, Neutrophils # (Auto) 6.7, Lymphocytes # (Auto) 1.1, Monocytes # (Auto) 0.6, Eosinophils # (Auto) 0.2, Basophils # (Auto) 0.0, Sodium Level 138, Potassium Level 4.3, Chloride Level 106, Carbon Dioxide Level 18L, Anion Gap 14, Blood Urea Nitrogen 44H, Creatinine 1.89H, Estimat Glomerular Filtration Rate 27, BUN/Creatinine Ratio 23, Glucose Level 140H, Calcium Level 9.0, Corrected Calcium 9.2, Total Bilirubin 0.4, Aspartate Amino Transf (AST/SGOT) 16, Alanine Aminotransferase (ALT/SGPT) 20, Alkaline Phosphatase 80, Total Protein 7.4, Albumin 3.8, Troponin I 0.031H, B-Type Natriuretic Peptide 273.7H, Triglycerides Level 361H, Cholesterol Level 141, LDL Cholesterol Direct 59, VLDL Cholesterol 72H, HDL Cholesterol 24L 07/28/18 09:20: Urine Color YELLOW, Urine Clarity CLEAR, Urine pH 5, Urine Specific Omar 1.010L, Urine Protein 3+H, Urine Glucose (UA) 1+H, Urine Ketones NEGATIVE, Urine Nitrite NEGATIVE, Urine Bilirubin NEGATIVE, Urine Urobilinogen NORMAL, Urine Leukocyte Esterase 1+H, Urine RBC (Auto) NEGATIVE, Urine RBC NONE, Urine WBC 2- 5, Urine Squamous Epithelial Cells 25-50H, Urine Crystals NONE, Urine Bacteria TRACE, Urine Casts NONE, Urine Mucus NEGATIVE, Urine Culture Indicated NO 07/28/18 10:05: Troponin I < 0.028 07/28/18 11:00: Glucometer 158H 07/28/18 15:10: Glucometer 228H A/P-Cardiology Assessment/Admission Diagnosis Chest pain of undetermined etiology. No distinct evidence of MT on card enz done at this [facility] (Trop I 0.031 and <0.028) CAD - Severe three-vessel disease including distal left main, ostial LAD, proximal left circumflex artery stenosis. Chronic total occlusion of the ostial RCA supplied by collaterals from the left coronary system. LVEF 50% with inferior akinesis. LVEDP is 17 mmHg. per cardiac cath of Jan [address] King mcqueen. Subsequently transferred to [facility] for further eval for PCI vs CABG. Per pt she had stenting done by Dr. Sanz at [facility] in [place], [place], Jan 2018 - exact details unknown - Brilinta and ASA. Pt was told by Dr Sanz that she in not a candidate for further cor intervention at this time PAD - Bilateral ostial SFA occlusions seen on angiogram of Jan [address] Merino - being followed by Dr. Sanz HTN HLD - statin tx CKD - stage 3 DM 2 Diabetic neuropathy COPD Tobaccoism - cessation advised Depression Discussion and Recomendations * Request records from [facility] * Continue ASA, Brilinta, statin, BB and antihypertensives * Per medication bottles brought in by pt she has been taking Toprol XL and Coreg - this places her at risk for bradycardia and hypotension - we will stop the Toprol and continue the Coreg * CKD with acute on chronic renal insufficiency - hold diuretics * Monitor lab * Further recs will be based on her hospital course * I discussed her CV issues in detail with her and her [facility] Clinical Quality Measures AMI/AHF: ASA po Prior to arrival: Yes (takes 162 mg daily including today) DVT/VTE Risk/Contraindication: Risk Factor Score Per Nursin RFS Level Per Nursing on Admit: 4+=Very High JOSE MIGUEL ALCALA MD FACP FAC CCDS July 28, 2018 16:59
[2018-07-28] MEDS ORDERED: RT-ALBUTEROL SULF 2.5 MG/3 ML PRE-MIX VIAL INH PRN (18:30)
[2018-07-28] MEDS ORDERED: ATORVASTATIN 40 MG (LIPITOR) TABLET PO SCH (21:00)
[2018-07-28] MEDS ORDERED: NON-FORMULARY MEDICATION 1 EA EA (Quetiapine Fumarate 100 MG) PO SCH (21:00)
[2018-07-28] MEDS ORDERED: NON-FORMULARY MEDICATION 1 EA EA (Insulin Glargine,Hum.rec.anlog (Lantus Solostar) 40 UNIT SQ SCH (21:00)
[2018-07-28] MEDS ORDERED: lisINopril 10 MG (PRINIVIL) TABLET PO SCH (21:00)
[2018-07-28] MEDS ORDERED: NON-FORMULARY MEDICATION 1 EA EA (Amitriptyline HCl 100 MG) PO SCH (21:00)
[2018-07-28] MEDS ORDERED: LISINOPRIL 30 MG PO SCH (21:00)
[2018-07-28] MEDS ORDERED: NON-FORMULARY MEDICATION 1 EA EA (Carvedilol 25 MG) PO SCH (21:00)
[2018-07-28] MEDS ORDERED: CARVEDILOL 12.5 MG (COREG) TABLET PO SCH (21:00)
[2018-07-28] MEDS ORDERED: AMITRIPTYLINE 50 MG (ELAVIL) TAB PO SCH (21:00)
[2018-07-28] MEDS ORDERED: TICAGRELOR 90 MG TABLET (BRILINTA) PO SCH (21:00)
[2018-07-28] MEDS ORDERED: QUEtiapine 100 MG (SEROquel) TAB IMMEDIATE RELEASE PO SCH (21:00)
--- NOTE | 2018-07-28 23:19 | NUR ---
pt sb with pauses about every 3rd beat, pt asymptomatic hr 45 b/p 142/[address] gomes-order to put coreg on hold
[2018-07-29] VITALS (9 sets, daily range): BP systolic 126–172; BP diastolic 45–79
[2018-07-29] MEDS: NS IV 1000 ML 1,000 ML IV SCH ×2 (01:25→06:12)
[2018-07-29] MEDS: RT-ALBUTEROL/IPRATROPIUM 3 ML (DUONEB) VIAL INH SCH ×2 (02:50→09:00)
[2018-07-29] MEDS: inSUlin ASPART (NovoLOG) 1 UNIT/0.01 ML (CHARGE PER UNIT) SC SCH ×2 (06:05→09:47)
[2018-07-29] MEDS ORDERED: LEVOTHYROXINE 88 MCG (LEVOTHORID) TAB PO SCH (06:30)
[2018-07-29] MEDS ORDERED: INSULIN LISPRO 40 UNIT SQ SCH (07:00)
[2018-07-29] MEDS ORDERED: inSUlin ASPART (NovoLOG) 1 UNIT/0.01 ML (CHARGE PER UNIT) SC SCH (07:00)
[2018-07-29] MEDS ORDERED: CALCIUM CARB + VIT D 600 MG (CALCARB + D) TAB PO SCH (08:00)
[2018-07-29] MEDS: TICAGRELOR 90 MG TABLET (BRILINTA) PO SCH (08:23)
--- NOTE | 2018-07-29 08:56 | Progress Note-Cardiology ---
Cardiology SOAP Progress Note Subjective: Sitting up in bed. Daughter at the bedside. Pt states she feels well this morning and wants to go home. Objective: I&O/Vital Signs 07/29/18 07/29/18 07/29/18 07/29/18 00:09 00:10 01:00 01:00 Temp 97.9 Pulse 49 50 50 Resp 21 19 B/P (MAP) 130/50 (76) 172/70 (104) Pulse Ox 94 92 O2 Delivery Room Air Room Air Room Air 07/29/18 07/29/18 07/29/18 07/29/18 02:00 02:50 03:00 04:00 Temp 97.4 Pulse 47 47 50 Resp 29 21 18 B/P (MAP) 142/57 (85) 129/53 (78) 150/52 (84) Pulse Ox 93 97 95 97 O2 Delivery Room Air Room Air Room Air Room Air 07/29/18 07/29/18 07/29/18 07/29/18 04:02 05:00 06:00 07:00 Pulse 76 74 75 Resp 20 18 B/P (MAP) 161/58 (92) 153/62 (92) Pulse Ox 100 93 O2 Delivery Room Air Room Air Room Air 07/29/18 07/29/18 07/29/18 07/29/18 08:00 08:00 08:00 09:00 Temp 96.4 Pulse 91 Resp 33 B/P (MAP) O2 Delivery Room Air Room Air Room Air 07/29/18 09:00 Pulse Ox 95 O2 Delivery Room Air 07/29/18 00:00 Intake Total 780 ml Output Total 600 ml Balance 180 ml Weight (Pounds): 179 Weight (Ounces): 5.0 Weight (Calculated Kilograms): 81.895666 Constitutional: AAO x 3, well-developed Respiratory: chest expansion is symmetric, chest is bilaterally symmetric, lungs clear to auscultation, rhonchi (scattered; prolonged expiratory phase) Cardiovascular: regular rate-rhythm; No JVD; S1 and S2 Gastrointestional: No tender; soft, round, audible bowel sounds Extremities: no lower extremity edema bilateral Neurologic/Psychiatric: grossly intact Skin: No rash, No ulcerations Results/Procedures: Labs Laboratory Tests 07/28/18 15:10: Glucometer 228H 07/28/18 20:45: Glucometer 244H 07/29/18 06:04: Glucometer 143H 07/29/18 09:05: Sodium Level 142, Potassium Level 4.1, Chloride Level 111H, Carbon Dioxide Level 18L, Anion Gap 13, Blood Urea Nitrogen 29H, Creatinine 1.47H, Estimat Glomerular Filtration Rate 36, BUN/Creatinine Ratio 20, Glucose Level 165H, Calcium Level 8.8 07/29/18 09:41: Glucometer 287H A/P: Assessment: Chest pain of undetermined etiology. No distinct evidence of MN on card enz done at this [facility] (Trop I 0.031 and <0.028) Asymptomatic bradycardia with a 2.4 sec pause overnight (07-28-18) - beta-bernard d/c'd CAD - Severe three-vessel disease including distal left main, ostial LAD, proximal left circumflex artery stenosis. Chronic total occlusion of the ostial RCA supplied by collaterals from the left coronary system. LVEF 50% with inferior akinesis. LVEDP is 17 mmHg. per cardiac cath of Jan [address] Merino. Subsequently transferred to [facility] for further eval for PCI vs CABG. Per pt she had stenting done by Dr. Sanz at [facility] in [place], [place], Jan 2018 - exact details unknown - Brilinta and ASA. Pt was told by Dr Sanz that she in not a candidate for further cor intervention at this time PAD - Bilateral ostial SFA occlusions seen on angiogram of Jan [address] Merino - being followed by Dr. Sanz HTN - not well controlled HLD - statin tx CKD - stage 3 DM 2 Diabetic neuropathy COPD Tobaccoism - cessation advised Depression Plan: * Request records from [facility] - awaiting records * Continue ASA, Brilinta, statin * Asymptomatic bradycardia overnight with 2.4 sec pause (2300 last noc); HR 49 this morning while sitting up in bed talking, no c/o * We will hold BB d/t bradycardia, albeit asymptomatic, d/t risk of worsening * BP not well controlled - add Doxazosin * CKD with acute on chronic renal insufficiency - hold diuretics - BMP this morning * Monitor lab Physician Assessment Physician Assessment No cp or palp or syncope. 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
[2018-07-29] MEDS ORDERED: CARVEDILOL 12.5 MG (COREG) TABLET PO SCH (09:00)
[2018-07-29] MEDS ORDERED: NON-FORMULARY MEDICATION 1 EA EA (Calcium Carbonate/Vitamin D3 (Calcium 600 + Vit D 200 Ta PO SCH (09:00)
[2018-07-29] MEDS ORDERED: ATORVASTATIN 40 MG (LIPITOR) TABLET PO SCH (09:00)
[2018-07-29] MEDS ORDERED: ASPIRIN E.C. 81 MG (ECOTRIN) TAB PO SCH (09:00)
[2018-07-29] MEDS ORDERED: ASPIRIN 81 MG CHEW (CHILDREN'S ASA) PO SCH (09:00)
[2018-07-29] MEDS ORDERED: amLODIPine 10 MG (NORVASC) TAB PO SCH (09:00)
[2018-07-29] MEDS ORDERED: BUMETANIDE 1 MG (BUMEX) TAB PO SCH (09:00)
[2018-07-29] MEDS ORDERED: NON-FORMULARY MEDICATION 1 EA EA (Bumetanide 1 MG) PO SCH (09:00)
[2018-07-29] MEDS ORDERED: ISOSORBIDE MONONITRATE 60 MG (IMDUR) TAB PO SCH (09:00)
[2018-07-29] MEDS ORDERED: OMEGA 3 (FISH OIL) 1000 MG CAP PO SCH (09:00)
[2018-07-29] MEDS ORDERED: PANTOPRAZOLE 40 MG (PROTONIX) TAB PO SCH (09:00)
[2018-07-29] MEDS ORDERED: NON-FORMULARY MEDICATION 1 EA EA (Amlodipine Besylate 10 MG) PO SCH (09:00)
[2018-07-29] MEDS ORDERED: doxAzosin 4 MG (CARDURA) TAB PO NR (09:15)
[2018-07-29 09:46] LABS: CALCIUM 8.8 MG/DL (8.5-10.1); CREATININE SERUM 1.47 MG/DL (0.60-1.30); POTASSIUM 4.1 MMOL/L (3.6-5.0)
--- NOTE | 2018-07-29 09:51 | Discharge Summary-Hospitalist ---
Diagnosis/Chief Complaint Date of Admission July 28, 2018 at 01:47 Date of Discharge Discharge Date: July 29, 2018 Admission Diagnosis Assessment: Chest pain CAD managed by Dr Pierson s/p recent stents placed 01/24 and maintained on antiplatelet therapy PAD HTN HLP CRI DM Neuropathy COPD Smoker Depression Plan: Smoking cessation Brilinta and ASA Cardiology management is appreciated Discharge Diagnosis (1) Chest pain Status: Acute (2) Non-ST elevation ID (NSTEMI) Status: Acute (3) COPD (chronic obstructive pulmonary disease) with acute bronchitis Status: Chronic (4) Multi-vessel coronary artery stenosis Status: Chronic (5) Delirium due to another medical condition Status: Acute (6) Smoker Status: Chronic Discharge Summary Discharge Physical Exam Allergies: Coded Allergies: No Known Drug Allergies (Unverified , 07/27/18) Vitals & I&Os Vital Signs Date Time Temp Pulse Resp B/P (MAP) Pulse Ox O2 Delivery O2 Flow Rate FiO2 07/29/18 12:56 73 07/29/18 12:00 Room Air 07/29/18 12:00 97.8 14 164/79 (107) 97 General Appearance: No Apparent Distress, WD/WN, Chronically ill Respiratory: Chest Non Tender, Lungs Clear, Normal Breath Sounds, No Accessory Muscle Use, No Respiratory Distress Cardiovascular: Regular Rate, Rhythm, No Edema, No Gallop, No JVD, No Murmur, Normal Peripheral Pulses Neurologic/Psychiatric: Alert, Oriented x3, No Motor/Sensory Deficits, Normal Mood/Affect Hospital Course Was the Problem List Reviewed?: Yes Hospital Course: Pt had an uneventful hospital course. She underwent serial troponins revealing no evidence of acute coronary syndrome. She was taking Coreg and Metoprolol. She did have bradycardia, those medications were held with close follow up with her primary pipe connector. She is to establish with a PCP since she is new to [facility]. Labs (last 24 hrs) Laboratory Tests 07/28/18 20:45: Glucometer 244H 07/29/18 06:04: Glucometer 143H 07/29/18 09:05: Sodium Level 142, Potassium Level 4.1, Chloride Level 111H, Carbon Dioxide Level 18L, Anion Gap 13, Blood Urea Nitrogen 29H, Creatinine 1.47H, Estimat Glomerular Filtration Rate 36, BUN/Creatinine Ratio 20, Glucose Level 165H, Calcium Level 8.8 07/29/18 09:41: Glucometer 287H Patient resulted labs reviewed. Pending Labs Discussion & Recommendations Discharge Planning: <30 minutes discharge planning Discharge Home Medications: Active Scripts Active Cardura (Doxazosin Mesylate) 1 Mg Tablet 1 Mg PO BID Reported Lisinopril 30 Mg Tablet 30 Mg PO HS Nitroglycerin 0.4 Mg Tab.subl 0.4 Mg SL UD PRN Aspirin EC (Aspirin) 81 Mg Tablet.dr 81 Mg PO DAILY Ventolin Hfa (Albuterol Sulfate) 18 Gm Hfa.aer.ad 2 Puff INH Q4H PRN Brilinta (Ticagrelor) 90 Mg Tablet 90 Mg PO BID Quetiapine Fumarate 100 Mg Tablet 100 Mg PO HS Atorvastatin Calcium 40 Mg Tablet 40 Mg PO DAILY Amlodipine Besylate 10 Mg Tablet 10 Mg PO DAILY Bumetanide 1 Mg Tablet 1 Mg PO DAILY Humalog Kwikpen (Insulin Lispro) 100 Unit/1 Ml Insuln.pen 40 Unit SQ BID WITH MEALS Lantus Solostar (Insulin Glargine,Hum.rec.anlog) 100 Unit/1 Ml Insuln.pen 40 Unit SQ BID Calcium 600 + Vit D 200 Tablet (Calcium Carbonate/Vitamin D3) 1 Each Tablet 1 Tab PO DAILY Fish Oil 1,000 mg Capsule ([place] 3 Polyunsat Fatty Acids) 1,000 Mg Cap 1,000 Mg PO DAILY Amitriptyline HCl 100 Mg Tablet 100 Mg PO HS Levothyroxine Sodium 88 Mcg Tablet 88 Mcg PO DAILY LAST FILLED #90 04-14-18 Isosorbide Mononitrate ER (Isosorbide Mononitrate) 60 Mg Tab 60 Mg PO DAILY LAST FILLED #90 04-14-18 Instructions to patient/family Please see electronic discharge instructions given to patient. Clinical Quality Measures AMI/AHF: ASA po Prior to arrival: Yes (takes 162 mg daily including today) DVT/VTE Risk/Contraindication: Risk Factor Score Per Nursin RFS Level Per Nursing on Admit: 4+=Very High Problem Qualifiers (1) Chest pain: Chest pain type: other chest pain Qualified Codes: R07.89 - Other chest pain ORIANA DIAZ DO July 29, 2018 09:51
[2018-07-29] MEDS ORDERED: DOXA1TAB PO (12:35)
--- NOTE | 2018-07-29 13:32 | NUR ---
Initial visit: pt is Nadia and her daughter is present for support. Pt was ordering lunch when I visited, and expressed hopes of discharging today.
[2018-07-29] MEDS ORDERED: doxAzosin 4 MG (CARDURA) TAB PO SCH (21:00)
== END 2018-07-29 13:50 | disposition home or self-care (01) | DRG 313 ==
LOC: EDUNIT# 22:54 → ER FS 22:55 → OBSVTOIN 07-28 01:47 → ICU 07-28 01:47
PROVIDERS: ADMIT Internal Medicine; ATTEND Internal Medicine
DX: R07.89 Other chest pain (principal); I25.10 Atherosclerotic heart disease of native coronary artery without angina pectoris; I12.9 Hypertensive chronic kidney disease with stage 1 through stage 4 chronic kidney disease, or unspecified chronic kidney disease; N18.3 Chronic kidney disease, stage 3 (moderate); N28.9 Disorder of kidney and ureter, unspecified; R00.1 Bradycardia, unspecified; T44.7X5A Adverse effect of beta-adrenoreceptor antagonists, initial encounter; E11.40 Type 2 diabetes mellitus with diabetic neuropathy, unspecified; J44.9 Chronic obstructive pulmonary disease, unspecified; F17.210 Nicotine dependence, cigarettes, uncomplicated; K21.9 Gastro-esophageal reflux disease without esophagitis; L40.9 Psoriasis, unspecified; I73.9 Peripheral vascular disease, unspecified; F32.9 Major depressive disorder, single episode, unspecified; I25.2 Old myocardial infarction; Z95.5 Presence of coronary angioplasty implant and graft; Z79.4 Long term (current) use of insulin
CPT/HCPCS: 36415; 71045; 80048; 80053; 80061; 81000; 82962; 83690; 83735; 83874; 83880; 84484; 85025; 85610; 85730; 93005; 94640; 94664

== ENCOUNTER 2019-05-16 09:32 | Inpatient (IN) | payer SELFPAY ==
[2019-05-16] VITALS (10 sets, daily range): BP systolic 166–184; BP diastolic 63–72
[~2019-05-16] VITALS: Ht 157.5 cm; Wt 91.2 kg
[~2019-05-16 09:32] MED LIST changes: +ALBU18HF2 INH; +AMLO10TA7 PO; +ASPI-983 PO; +ATOR40TA70 PO; +BUME1TAB8 PO; +CARV25TA PO; +DOXA1TAB PO; +LISI30TA5 PO; -METO-370 PO; +METO50TA7 PO; +NITR0.4T39 SL; +QUET100T33 PO; +TICA90TA PO
[2019-05-16 09:50] LABS: HEMATOCRIT 36 % (35-52); HEMOGLOBIN 11.8 G/DL (11.5-16.0); MEAN CORPUSCULAR HEMOGLOBIN 31 PG (25-34); MEAN CORPUSCULAR HGB CONC 33 G/DL (32-36); MEAN CORPUSCULAR VOLUME 94 FL (80-99); MEAN PLATELET VOLUME 10.9 FL (7.4-10.4); PLATELET COUNT 103 10^3/uL (130-400); RED CELL DISTRIBUTION WIDTH 13.9 % (10.0-14.5)
[2019-05-16 09:51] LABS: BASOPHILS % (AUTO) 0 % (0-10); EOSINOPHILS # (AUTO) 0.1 10^3/uL (0.0-0.3); EOSINOPHILS % (AUTO) 2 % (0-10); LYMPHOCYTES # (AUTO) 0.7 X 10^3 (1.0-4.0); LYMPHOCYTES % (AUTO) 9 % (12-44); MONOCYTES # (AUTO) 0.4 X 10^3 (0.0-1.0); MONOCYTES % (AUTO) 6 % (0-12); NEUTROPHILS # (AUTO) 5.8 X 10^3 (1.8-7.8); NEUTROPHILS % (AUTO) 83 % (42-75)
[2019-05-16] MEDS ORDERED: RT-ALBUTEROL/IPRATROPIUM 3 ML (DUONEB) VIAL INH ONE (10:00)
[2019-05-16] MEDS ORDERED: methylPREDNISolone 125 MG (Solu-MEDROL) VIAL IVP ONE (10:00)
--- NOTE | 2019-05-16 10:00 | Diagnostic Imaging Report ---
Indication: Cough and chest pain Portable chest 9:55 AM There is a faint diffuse interstitial infiltrate in the lungs. Heart size and pulmonary vascularity are normal. There are no effusions or pneumothoraces. IMPRESSION: Mild diffuse interstitial infiltrate in the lungs. Dictated by: Dictated on workstation # [id number]
--- NOTE | 2019-05-16 10:10 | ED Chest Pain ---
General Chief Complaint: Respiratory Problems Stated Complaint: CHEST PAIN Nursing Triage Note: PT REPORTS SHE HAD CHEST PAIN AND SHORTNESS OF BREATH YESTERDAY AND AGAIN THIS AM UPON AWAKING. SHE SMOKES 30 CIGARETTES A DAY. Nursing Sepsis Screen: No Definite Risk Source: patient Exam Limitations: no limitations History of Present Illness Date Seen by Provider: May 16, 2019 Time Seen by Provider: 09:37 Initial Comments The patient is a 63-year-old female who presents for evaluation of shortness of breath and cough since yesterday. She has a history of multiple heart attacks in the past and states that she took nitroglycerin yesterday which helped relieve her pain and took nitroglycerin again today but it did not help. She was transported to the emergency department by EMS. 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 She was given 4 baby aspirin by EMS today in route. By the time the patient arrived in the emergency department she reports that her chest pain has resolved. The complaining of cough, slight wheezing, and some shortness of breath. She is saturating in the mid to upper 80% range. She denies a history of COPD but does state that she smokes cigarettes and has done so for many years. She is not on oxygen at home. She is alert and oriented 4, calm, and appears to be in no distress at this time. She denies fevers or chills, productive cough, abdominal or back pain, dizziness, palpitations, nausea or vomiting, or syncope. Timing/Duration: gone now, 1 day Severity/Quality: moderate Location: substernal Radiation: no radiation Activities at Onset: none Prior CP/Workup: cardiac cath, heart attack ASA po FIXER BOARDING ROOM: Yes NTG SL FIXER BOARDING ROOM: Yes Associated Symptoms: shortness of breath Allergies and Home Medications Allergies Coded Allergies: No Known Drug Allergies (Unverified , 07/27/18) Home Medications Albuterol Sulfate 18 Gm Hfa.aer.ad, 2 PUFF INH Q4H PRN for SHORTNESS OF BREATH, (Reported) Amitriptyline HCl 100 Mg Tablet, 100 MG PO HS, (Reported) Amlodipine Besylate 10 Mg Tablet, 10 MG PO DAILY, (Reported) Aspirin 81 Mg Tablet.dr, 81 MG PO DAILY, (Reported) Atorvastatin Calcium 40 Mg Tablet, 40 MG PO DAILY, (Reported) Bumetanide 1 Mg Tablet, 1 MG PO DAILY, (Reported) Calcium Carbonate/Vitamin D3 1 Each Tablet, 1 TAB PO DAILY, (Reported) Doxazosin Mesylate 1 Mg Tablet, 1 MG PO BID Prescribed by: FENG NEGRON on 07/29/18 1235 Insulin Glargine,Hum.rec.anlog 100 Unit/1 Ml Insuln.pen, 40 UNIT SQ BID, (Reported) Insulin Lispro 100 Unit/1 Ml Insuln.pen, 40 UNIT SQ BID WITH MEALS, (Reported) Isosorbide Mononitrate 60 Mg Tab, 60 MG PO DAILY, (Reported) LAST FILLED #90 04-14-18 Levothyroxine Sodium 88 Mcg Tablet, 88 MCG PO DAILY, (Reported) LAST FILLED #90 04-14-18 Lisinopril 30 Mg Tablet, 30 MG PO HS, (Reported) Nitroglycerin 0.4 Mg Tab.subl, 0.4 MG SL UD PRN for CHEST PAIN, (Reported) [place] 3 Polyunsat Fatty Acids 1,000 Mg Cap, 1,000 MG PO DAILY, (Reported) Quetiapine Fumarate 100 Mg Tablet, 100 MG PO HS, (Reported) Ticagrelor 90 Mg Tablet, 90 MG PO BID, (Reported) Patient Home Medication List Home Medication List Reviewed: Yes Review of Systems Review of Systems Constitutional: no symptoms reported EENTM: No Symptoms Reported Respiratory: Cough, Shortness of Air Cardiovascular: Chest Pain Gastrointestinal: No Symptoms Reported Genitourinary: No Symptoms Reported Musculoskeletal: no symptoms reported Skin: no symptoms reported Psychiatric/Neurological: No Symptoms Reported Endocrine: No Symptoms Reported Hematologic/Lymphatic: No Symptoms Reported All Other Systems Reviewed Negative Unless Noted: Yes Past Vdaqotp-Rgbczl-Getrrk Hx Past Med/Social Hx: Reviewed Nursing Past Med/Soc Hx Patient Social History Alcohol Use: Denies Use Recreational Drug Use: No Smoking Status: Current Everyday Smoker Type Used: Cigarettes 2nd Hand Smoke Exposure: No Recent Foreign Travel: No Contact w/Someone Who Travel: No Recent Infectious Disease Expo: No Recent Hopitalizations: No Physical Abuse: No Sexual Abuse: No Mistreated: No Fear: No Immunizations Up To Date Date of Pneumonia Vaccine: Mar 09, 2016 Seasonal Allergies Seasonal Allergies: No Past Medical History Surgeries: Yes Coronary Stent, Hysterectomy Respiratory: No Cardiac: Yes Coronary Artery Disease, Heart Attack, Peripheral Vascular Neurological: No Neuropathy Sexually Transmitted Disease: No HIV/AIDS: No Genitourinary: No Gastrointestinal: Yes Gastroesophageal Reflux Musculoskeletal: No Endocrine: Yes Diabetes, Non-Insulin dep HEENT: No Cancer: No Psychosocial: No Integumentary: No Psoriasis Blood Disorders: No Adverse Reaction/Blood Tranf: No Physical Exam Vital Signs Vital Signs - First Documented 05/16/19 05/16/19 09:34 09:53 Temp 36.2 Pulse 92 Resp 16 B/P (MAP) 187/58 (101) Pulse Ox 92 O2 Delivery Nasal Cannula O2 Flow Rate 4.00 Capillary Refill : Less Than 3 Seconds Height, Weight, BMI Height: 5'2.00" Weight: 179lbs. 5.0oz. 81.014410vs; 36.00 BMI Method:Stated General Appearance: No Apparent Distress, WD/WN HEENT: PERRL/EOMI, Pharynx Normal Neck: Full Range of Motion Respiratory: Chest Non Tender, No Accessory Muscle Use, No Respiratory Distress, Rhonci, Wheezing (faint) Cardiovascular: Regular Rate, Rhythm, No Murmur Gastrointestinal: Normal Bowel Sounds, No Pulsatile Mass, Non Tender, Soft Extremity: Normal Capillary Refill, Normal Inspection, Normal Range of Motion, Pedal Edema (2+ b/l) Neurologic/Psychiatric: Alert, Oriented x3, No Motor/Sensory Deficits, Normal Mood/Affect Skin: Normal Color, Warm/Dry Procedures/Interventions Date of ETT Placement: Feb 01, 2018 Time of ETT Placement: 1613 Progress/Results/Core Measures Results/Orders Lab Results Laboratory Tests Test 05/16/19 09:41 Range/Units White Blood Count 7.0 4.3-11.0 10^3/uL Red Blood Count 3.82 L 4.35-5.85 10^6/uL Hemoglobin 11.8 11.5-16.0 G/DL Hematocrit 36 35-52 % Mean Corpuscular Volume 94 80-99 FL Mean Corpuscular Hemoglobin 31 25-34 PG Mean Corpuscular Hemoglobin Concent 33 32-36 G/DL Red Cell Distribution Width 13.9 10.0-14.5 % Platelet Count 103 L 130-400 10^3/uL Mean Platelet Volume 10.9 H 7.4-10.4 FL Neutrophils (%) (Auto) 83 H 42-75 % Lymphocytes (%) (Auto) 9 L 12-44 % Monocytes (%) (Auto) 6 0-12 % Eosinophils (%) (Auto) 2 0-10 % Basophils (%) (Auto) 0 0-10 % Neutrophils # (Auto) 5.8 1.8-7.8 X 10^3 Lymphocytes # (Auto) 0.7 L 1.0-4.0 X 10^3 Monocytes # (Auto) 0.4 0.0-1.0 X 10^3 Eosinophils # (Auto) 0.1 0.0-0.3 10^3/uL Basophils # (Auto) 0.0 0.0-0.1 10^3/uL Prothrombin Time 13.2 12.2-14.7 SEC INR Comment 1.0 0.8-1.4 Activated Partial Thromboplast Time 29 24-35 SEC Sodium Level 135 135-145 MMOL/L Potassium Level 4.5 3.6-5.0 MMOL/L Chloride Level 98 98-107 MMOL/L Carbon Dioxide Level 24 21-32 MMOL/L Anion Gap 13 5-14 MMOL/L Blood Urea Nitrogen 22 H 7-18 MG/DL Creatinine 1.26 0.60-1.30 MG/DL Estimat Glomerular Filtration Rate 43 BUN/Creatinine Ratio 17 Glucose Level 437 *H 70-105 MG/DL Calcium Level 8.8 8.5-10.1 MG/DL Corrected Calcium 8.7 8.5-10.1 MG/DL Magnesium Level 2.1 1.6-2.4 MG/DL Total Bilirubin 0.8 0.1-1.0 MG/DL Aspartate Amino Transf (AST/SGOT) 26 5-34 U/L Alanine Aminotransferase (ALT/SGPT) 30 0-55 U/L Alkaline Phosphatase 89 40-136 U/L Troponin I < 0.30 <0.30 NG/ML Pro-B-Type Natriuretic Peptide 2565.0 H <75.0 PG/ML Total Protein 7.5 6.4-8.2 GM/DL Albumin 4.1 3.2-4.5 GM/DL My Orders Orders - ABDIAZIZ BERNARD DO Cbc With Automated Diff (05/16/19 09:40) Magnesium (05/16/19 09:40) Chest 1 View Ap/Pa Only (05/16/19 09:40) Ekg Tracing (05/16/19 09:40) Comprehensive Metabolic Panel (05/16/19 09:40) Protime With Inr (05/16/19 09:40) Partial Thromboplastin Time (05/16/19 09:40) O2 (05/16/19 09:40) Monitor-Rhythm Ecg Trace Only (05/16/19 09:40) Lipid Panel (05/17/19 06:00) Ed Iv/Invasive Line Start (05/16/19 09:40) Troponin I Fs (05/16/19 09:40) Probnp Fs (05/16/19 09:40) Albuterol/Ipra Inhalation Soln (Duoneb I (05/16/19 10:00) Svn Small Volume Nebulizer (05/16/19 09:53) Methylprednisolone Sod Succ (Solu-Medrol (05/16/19 10:00) Furosemide Injection (Lasix Injection) (05/16/19 10:45) Insulin (Regular) Human (Humulin R (Per (05/16/19 10:45) Levofloxacin 750 Mg/150 Ml Iv (Levaquin (05/16/19 11:45) Medications Given in ED Current Medications Medications Dose Ordered Sig/[place] Route Start Time Stop Time Status Last Admin Dose Admin Albuterol/ Ipratropium 3 ml ONCE ONCE INH 05/16/19 10:00 05/16/19 10:01 DC 05/16/19 10:00 3 ML Furosemide 40 mg ONCE ONCE IVP 05/16/19 10:45 05/16/19 10:46 DC 05/16/19 10:54 40 MG Insulin Human Regular 10 unit ONCE ONCE IV 05/16/19 10:45 05/16/19 10:46 DC 05/16/19 10:54 10 UNIT Levofloxacin/ Dextrose 150 ml @ 100 mls/hr ONCE ONCE IV 05/16/19 11:45 05/16/19 13:14 05/16/19 11:41 100 MLS/HR Methylprednisolone Sodium Succinate 125 mg ONCE ONCE IVP 05/16/19 10:00 05/16/19 10:01 DC 05/16/19 10:00 125 MG Vital Signs/I&O 05/16/19 05/16/19 09:34 09:53 Temp 36.2 Pulse 92 Resp 16 B/P (MAP) 187/58 (101) Pulse Ox 92 92 O2 Delivery Nasal Cannula Nasal Cannula O2 Flow Rate 4.00 Blood Pressure Mean: 101 Progress Progress Note : Progress Note @1145 - patient updated on lab and imaging results. She'll be given Levaquin for the infiltrates. She is currently breathing much easier after the breathing treatment and has no complaints of chest pain. She is agreeable to admission. Dr. Hicks at [facility] excepts the patient to a telemetry bed. EKG : Comment Normal sinus rhythm, rate of 93, normal axis, right bundle-branch block is present, no acute ischemic findings noted, no STEMI, reviewed and interpreted by myself Departure Communication (Admissions) Time/Spoke to Admitting Phy: 11:52 Dr. Alas accepts the telemetry admission at [facility]. Impression Primary Impression: Chest pain Additional Impressions: Elevated brain natriuretic peptide (BNP) level COPD exacerbation Hyperglycemia Disposition: ADMITTED INPATIENT Condition: Stable Admissions Decision to Admit Reason: Admit from ER (General) Decision to Admit/Date: May 16, 2019 Time/Decision to Admit Time: 11:52 Departure-Patient Inst. Referrals: SVITLANA VALLEJO MD (PCP/Family) Primary Care Physician ABDIAZIZ BERNARD DO May 16, 2019 10:10
[2019-05-16 10:11] LABS: PROTHROMBIN TIME PATIENT 13.2 SEC (12.2-14.7)
[2019-05-16 10:20] LABS: CREATININE SERUM 1.26 MG/DL (0.60-1.30); POTASSIUM 4.5 MMOL/L (3.6-5.0)
[2019-05-16 10:22] LABS: ALBUMIN 4.1 GM/DL (3.2-4.5); BILIRUBIN,TOTAL 0.8 MG/DL (0.1-1.0); CALCIUM 8.8 MG/DL (8.5-10.1); MAGNESIUM 2.1 MG/DL (1.6-2.4); TOTAL PROTEIN 7.5 GM/DL (6.4-8.2)
[2019-05-16] MEDS ORDERED: FUROSEMIDE 40 MG/4 ML INJ (LASIX) IVP ONE (10:45)
[2019-05-16] MEDS ORDERED: inSUlin (REGULAR) HUMAN 1 UNIT/0.01 ML (CHARGE PER UNIT) IV ONE (10:45)
[2019-05-16] MEDS ORDERED: LEVOFLOXACIN 750 MG/150 ML IV 150 ML IV ONE (11:45)
--- NOTE | 2019-05-16 12:44 | NUR ---
ATTEMPTED TO CALL REPORT WITH NO ANSWER AT THIS TIME.
--- NOTE | 2019-05-16 13:00 | NUR ---
Brigid Collins admitted to room 416-1, with an admitting diagnosis of chest pain , on 05/16/19 from AM via , accompanied by .BRIGID COLLINS introduced to surroundings, call light, bed controls, phone, TV, temperature control, lights, meal times, smoking policy, visitor policy, side rail policy, bathrooms and showers. Patient Rights given to patient in the handbook.BRIGID COLLINS verbalizes understanding that [facility] is not responsible for the loss or damage to any personal effects or valuables that are kept in the patients posession during their hospitalization. BRIGID COLLINS verbalizes understanding of Interdisciplinary Patient Education. Patient and/or family were informed about the Rapid Response Team and its purpose.
[2019-05-16] MEDS ORDERED: ONDANSETRON 4 MG/2 ML (SDV) Z0FRAN IV PRN ×2 (13:45→16:15)
[2019-05-16] MEDS ORDERED: NITROGLYCERIN 0.4 MG SL TABS BTL 25'S SL PRN ×2 (13:45→17:00)
[2019-05-16] MEDS ORDERED: morphine INJ 4 MG/ML 1 ML (VIAL/SYRINGE) IV PRN (13:45)
[2019-05-16] MEDS ORDERED: CATHETER FLUSH 10 ML SYR IV PRN ×2 (13:45→17:15)
[2019-05-16] MEDS ORDERED: CATHETER FLUSH 10 ML SYR IV SCH (14:00)
[2019-05-16] MEDS ORDERED: ACETAMINOPHEN 325 MG TABLET PO PRN (16:15)
[2019-05-16] MEDS ORDERED: MELATONIN 3 MG TABLET PO PRN (16:15)
[2019-05-16] MEDS ORDERED: BENZONATATE 100 MG (TESSALON) CAPSULE PO PRN (16:15)
[2019-05-16] MEDS ORDERED: ANTACID SUSP 30 ML UDC (MYLANTA) PO PRN (16:15)
[2019-05-16] MEDS ORDERED: MILK OF MAGNESIA 400 MG/5 ML 30 ML UDC PO PRN (16:15)
--- NOTE | 2019-05-16 16:56 | History & Physical-Hospitalist ---
History of Present Illness HPI/Chief Complaint Regina is a 63-year-old female with past medical history of coronary artery disease, diabetes, hypertension who presented to the emergency room due to chest pain. She reports that she developed chest pain yesterday she took 2 or 3 nitroglycerin and the pain resolved. This morning the pain awoke her from sleep. She took 2 or 3 more nitroglycerin without any relief. She states she was diaphoretic and short of breath. She thought it was similar to her previous heart attacks. She denied any nausea. She did have some right shoulder pain with this but was unsure if it was associated with the chest pain or from her recent fall. She called EMS who brought her to the emergency room for evaluation. They gave her 324 mg of aspirin. She was chest pain-free by arrival to the ER. She remains pain-free at this time. Source: patient Date Seen 05/16/19 Time Seen by a Provider: 16:50 Attending Physician Ann Alas MD PCP Nigel Sanz MD Referring Physician Date of Admission May 16, 2019 at 12:32 Home Medications & Allergies Home Medications Reviewed patient Home Medication Reconciliation performed by pharmacy medication reconciliations non destructive evaluation technician and/or nursing. Patients Allergies have been reviewed. Allergies Allergies Uncoded Allergies Beta bernard ( Adverse Reaction, Unknown, 2.4 second pause (07/2018), 05/16/19) Past Orymgxb-Mgpmvk-Vhucfn Hx Past Med/Social Hx: Reviewed Nursing Past Med/Soc Hx Patient Social History Marrital Status: Employed/Student: retired Alcohol Use: Denies Use Recreational Drug Use: No Smoking Status: Current Everyday Smoker Type Used: Cigarettes 2nd Hand Smoke Exposure: No Recent Foreign Travel: No Contact w/other who traveled: No Recent Hopitalizations: No Recent Infectious Disease Expo: No Immunizations Up To Date Date of Pneumonia Vaccine: Mar 09, 2016 Date of Influenza Vaccine: Dec 07, 2017 Seasonal Allergies Seasonal Allergies: No Past Medical History Surgeries: Coronary Stent, Hysterectomy Respiratory: COPD Cardiac: Coronary Artery Disease, Heart Attack, Peripheral Vascular Neurological: Neuropathy Sexually Transmitted Disease: No HIV/AIDS: No Gastrointestinal: Gastroesophageal Reflux Endocrine: Diabetes, Non-Insulin dep Skin/Integumentary: Psoriasis History of Blood Disorders: No Adverse Reaction to Blood Umanzor: No Family History Reviewed Nursing Family Hx No Pertinent Family Hx Review of Systems Constitutional: No chills; diaphoresis; No fever, No weakness EENTM: no symptoms reported Respiratory: No cough; dyspnea on exertion, short of breath Cardiovascular: chest pain, edema, Hx of Intervention; No palpitations, No syncope Gastrointestinal: No abdominal pain, No constipation, No diarrhea; nausea; No vomiting Genitourinary: no symptoms reported Musculoskeletal: no symptoms reported Skin: no symptoms reported Psychiatric/Neurological: No Symptoms Reported Physical Exam Physical Exam Vital Signs Vital Signs - First Documented 05/16/19 05/16/19 09:34 09:53 Temp 36.2 Pulse 92 Resp 16 B/P (MAP) 187/58 (101) Pulse Ox 92 O2 Delivery Nasal Cannula O2 Flow Rate 4.00 Capillary Refill : Less Than 3 Seconds Height, Weight, BMI Height: 5'2.00" Weight: 179lbs. 5.0oz. 81.022747sv; 36.32 BMI Method:Stated General Appearance: No Apparent Distress, Chronically ill, Obese HEENT: PERRL/EOMI, Moist Mucous Membranes Neck: Normal Inspection, Supple Respiratory: Lungs Clear, No Respiratory Distress Cardiovascular: Regular Rate, Rhythm, No JVD, No Murmur Gastrointestinal: Normal Bowel Sounds, Non Tender, Soft Extremity: Normal Capillary Refill, No Calf Tenderness Neurologic/Psychiatric: Alert, Oriented x3, Normal Mood/Affect; No Aphasia, No Facial Droop Skin: Normal Color, Warm/Dry Results Results/Procedures Labs Laboratory Tests 05/16/19 09:41 Patient resulted labs reviewed. Imaging: Reviewed Imaging Report Assessment/Plan Admission Diagnosis Chest pain Admission Status: Observation Assessment and Plan Chest pain CAD Follows with Dr Sanz Received ASA with EMS Troponin negative x1, trend Cardiology consulted, appreciate recs Monitor on telemetry NIDDMII SSI ordered BS 437 in ER- was given 10 units regular insulin HTN Trend, resume home meds when able Tobacco abuse Recommended cessation, not ready to quit smoking Diagnosis/Problems Diagnosis/Problems (1) Non-insulin dependent type 2 diabetes mellitus Status: Chronic (2) Hypertension Status: Chronic Qualifiers: Hypertension type: essential hypertension Qualified Codes: I10 - Essential (primary) hypertension (3) Hypothyroidism Status: Chronic Qualifiers: Hypothyroidism type: unspecified Qualified Codes: E03.9 - Hypothyroidism, unspecified (4) Chest pain Status: Acute Qualifiers: Chest pain type: chest pain due to myocardial ischemia Ischemic chest pain type: stable angina pectoris Qualified Codes: I20.8 - Other forms of angina pectoris (5) Elevated brain natriuretic peptide (BNP) level Status: Acute (6) Multi-vessel coronary artery stenosis Status: Chronic (7) Smoker Status: Chronic (8) Heart failure Qualifiers: Heart failure type: systolic Heart failure chronicity: chronic Qualified Codes: I50.22 - Chronic systolic (congestive) heart failure (9) BMI 36.0-36.9,adult Clinical Quality Measures AMI/AHF: ASA po Prior to arrival: Yes ANN ALAS MD May 16, 2019 16:55
[2019-05-16] MEDS ORDERED: CLOPIDOGREL 300 MG (PLAVIX) TABLET PO NR (18:15)
--- NOTE | 2019-05-16 18:20 | Consultation-Cardiology ---
HPI-Cardiology Cardiology Consultation: Date of Consultation 05/16/19 Time Seen by a Provider: 17:50 Date of Admission Attending Physician Nicole Alas MD Admitting Physician Nigel Sanz MD Consulting Physician JOSE MIGUEL ALCALA MD, MA, FACP, FACC, FSCAI, CCDS Physician requesting consult HPI: Chief Complaint: CC: Chest discomfort HPI 63 yo woman with h/o CAD and cor stenting in [place], [place], admitted through [facility] ER for chest discomfort. Chest discomfort of 05/14/19, mod midsternal pressure that lasted only a few min. Chest discomfort on 05/15/19 that lasted about 30 min, relieved with 2 or 3 s/l NTG. Chest discomfort today did not go away with s/l NTG, went to ER, was treated with ASA and s/l NTG and supple oxygen and this combo resolved the chest discomfort that stayed approx an hour. Has chronic exertional shortness of breath. No palp or syncope. Gen weakness and malaise Review of Systems-Cardiology Review of Systems Constitutional: malaise, tiredness; No weight loss, No weight gain Eyes: No vision change Ears/Nose/Throat: No ear discharge, No nasal drainage, No recent hearing loss Respiratory: As described under HPI Cardiovascular: As described under HPI Gastrointestinal: No constipation, No diarrhea, No vomiting Genitourinary: No dysuria, No hematuria, No urine frequency changes Musculoskeletal: back pain (chronic) Skin: No rash, No ulcerations Psychiatric/Neurological: No seizure, No focal weakness, No syncope Hematologic: No bleeding abnormalities All Other Systems Reviewed Negative Unless Noted: Yes CKQ-Dbikdy-Hwkezi Hx Patient Social History Alcohol Use: Denies Use Recreational Drug Use: No Smoking Status: Current Everyday Smoker Type Used: Cigarettes 2nd Hand Smoke Exposure: No Recent Foreign Travel: No Recent Infectious Disease Expo: No Hospitalization with Isolation: Denies Physical Abuse Screen: No Sexual Abuse: No Immunizations Up To Date Date of Pneumonia Vaccine: Mar 09, 2016 Date of Influenza Vaccine: Dec 07, 2017 Past Medical History PMH As described under Assessment. Family Medical History Family Medical History: She reports her father and sister both had CAD with [place] between ages 40-60. Allergies and Home Medications Allergies Coded Allergies: No Known Drug Allergies (Unverified , 07/27/18) Home Medications Albuterol Sulfate 18 Gm Hfa.aer.ad, 2 PUFF INH Q4H PRN for SHORTNESS OF BREATH, (Reported) Amitriptyline HCl 100 Mg Tablet, 100 MG PO HS, (Reported) Amlodipine Besylate 10 Mg Tablet, 10 MG PO DAILY, (Reported) Aspirin 81 Mg Tablet.dr, 81 MG PO DAILY, (Reported) Atorvastatin Calcium 40 Mg Tablet, 40 MG PO DAILY, (Reported) Bumetanide 1 Mg Tablet, 1 MG PO DAILY, (Reported) Calcium Carbonate/Vitamin D3 1 Each Tablet, 1 TAB PO DAILY, (Reported) Doxazosin Mesylate 1 Mg Tablet, 1 MG PO BID Prescribed by: FENG NEGRON on 07/29/18 1235 Insulin Glargine,Hum.rec.anlog 100 Unit/1 Ml Insuln.pen, 40 UNIT SQ BID, (Reported) Insulin Lispro 100 Unit/1 Ml Insuln.pen, 40 UNIT SQ BID WITH MEALS, (Reported) Isosorbide Mononitrate 60 Mg Tab, 60 MG PO DAILY, (Reported) LAST FILLED #90 2-6-19 Levothyroxine Sodium 88 Mcg Tablet, 88 MCG PO DAILY, (Reported) LAST FILLED #90 2-6-19 Lisinopril 30 Mg Tablet, 30 MG PO HS, (Reported) Nitroglycerin 0.4 Mg Tab.subl, 0.4 MG SL UD PRN for CHEST PAIN, (Reported) [place] 3 Polyunsat Fatty Acids 1,000 Mg Cap, 1,000 MG PO DAILY, (Reported) Quetiapine Fumarate 100 Mg Tablet, 100 MG PO HS, (Reported) Ticagrelor 90 Mg Tablet, 90 MG PO BID, (Reported) Patient Home Medication List Home Medication List Reviewed: Yes Physical Exam-Cardiology Physical Exam Vital Signs/I&O 05/16/19 05/16/19 05/16/19 05/16/19 09:34 09:53 12:15 12:45 Temp 36.2 36.2 36.2 Pulse 92 90 88 Resp 16 18 16 B/P (MAP) 187/58 (101) 170/ 181/62 Pulse Ox 92 92 95 94 O2 Delivery Nasal Cannula Nasal Cannula Nasal Cannula Nasal Cannula O2 Flow Rate 4.00 3.00 3.00 05/16/19 05/16/19 05/16/19 05/16/19 13:15 13:30 13:55 14:07 Temp 36.4 Pulse 92 88 89 89 Resp 18 B/P (MAP) 184/70 (108) 168/69 (102) 179/72 170/66 (100) Pulse Ox 93 O2 Delivery Nasal Cannula O2 Flow Rate 2.00 05/16/19 05/16/19 05/16/19 05/16/19 14:21 14:35 14:55 15:57 Temp 36.6 Pulse 87 91 86 61 Resp 20 B/P (MAP) 166/70 (102) 168/69 (102) 181/72 (108) Pulse Ox 93 O2 Delivery Nasal Cannula O2 Flow Rate 2.00 Capillary Refill : Less Than 3 Seconds Constitutional: AAO x 3, well-developed, well-nourished HEENT: EOMI; No xanthelasmas are seen Neck: carotid pulses are 2 + bilaterally, with good upstrokes Respiratory: No accessory muscle use; other (good bilat air entry) Cardiovascular: regular rate-rhythm, S1 and S2, systolic murmur (soft LEV at card base) Gastrointestinal: No tender; soft; No guarding, No rebound; audible bowel sounds Extremities: No clubbing, No cyanosis, No significant edema Neurologic/Psychiatric: other (moves all limbs equally) Skin: warm/dry; No diaphoresis, No mottled, No pallor, No rash on exposed areas, No ulcerations on exposed areas Data Review Labs Laboratory Tests 05/16/19 09:41: White Blood Count 7.0, Red Blood Count 3.82L, Hemoglobin 11.8, Hematocrit 36, Mean Corpuscular Volume 94, Mean Corpuscular Hemoglobin 31, Mean Corpuscular Hemoglobin Concent 33, Red Cell Distribution Width 13.9, Platelet Count 103L, Mean Platelet Volume 10.9H, Neutrophils (%) (Auto) 83H, Lymphocytes (%) (Auto) 9L, Monocytes (%) (Auto) 6, Eosinophils (%) (Auto) 2, Basophils (%) (Auto) 0, Neutrophils # (Auto) 5.8, Lymphocytes # (Auto) 0.7L, Monocytes # (Auto) 0.4, Eosinophils # (Auto) 0.1, Basophils # (Auto) 0.0, Prothrombin Time 13.2, INR Com ment 1.0, Activated Partial Thromboplast Time 29, Sodium Level 135, Potassium Level 4.5, Chloride Level 98, Carbon Dioxide Level 24, Anion Gap 13, Blood Urea Nitrogen 22H, Creatinine 1.26, Estimat Glomerular Filtration Rate 43, BUN/Creatinine Ratio 17, Glucose Level 437*H, Calcium Level 8.8, Corrected Calcium 8.7, Magnesium Level 2.1, Total Bilirubin 0.8, Aspartate Amino Transf (AST/SGOT) 26, Alanine Aminotransferase (ALT/SGPT) 30, Alkaline Phosphatase 89, Troponin I < 0.30, Pro-B-Type Natriuretic Peptide 2565.0H, Total Protein 7.5, Albumin 4.1 05/16/19 16:19: Troponin I 0.113H Laboratory Tests 05/16/19 09:41 A/P-Cardiology Assessment/Admission Diagnosis Ac NSTEMI Uncontrolled DM II Not suitable for beta-bernard. H/o up to 2.4 sec pause while on beta-bernard (07-28-18) CAD - Known SEROLOGIST of RCA, inf akinesis, and preserved LV function on cath by Dr Merino in Jan 2018. S/p 3 x 24 ostial and prox LAD stenting in Jan [address] Vicente (distal LMCA reported to be 20-30 and RI and LCx reported to be 20%) PAD - Bilateral ostial SFA occlusions seen on angiogram of Jan [address] Merino - being followed by Dr. Sanz HTN HLD - statin tx CKD - stage 3 H/o diabetic neuropathy COPD Tobaccoism - cessation advised Discussion and Recomendations * Treat with ASA, Plavix, Lovenox * Not suitable for bb (see above) * Statin * Monitor labs * Repeat cath. We discussed rationale, pros and cons. She agrees. Plan for tomorrow * Advised to quit smoking Clinical Quality Measures AMI/AHF: ASA po Prior to arrival: Yes DVT/VTE Risk/Contraindication: Risk Factor Score Per Nursin RFS Level Per Nursing on Admit: 4+=Very High JOSE MIGUEL ALCALA MD [facility] May 16, 2019 18:20
[2019-05-16] MEDS: ENOXAPARIN 40 MG/0.4 ML (LOVENOX) SYR SQ SCH (18:29)
[2019-05-16] MEDS: GABAPENTIN 300 MG (NEURONTIN) CAP PO SCH (20:24)
[2019-05-16] MEDS: QUEtiapine 100 MG (SEROquel) TAB IMMEDIATE RELEASE PO SCH (20:24)
[2019-05-16] MEDS ORDERED: inSUlin ASPART (NovoLOG) 1 UNIT/0.01 ML (CHARGE PER UNIT) SC ONE (21:00)
[2019-05-16] MEDS ORDERED: inSUlin ASPART (NovoLOG) 1 UNIT/0.01 ML (CHARGE PER UNIT) SC SCH (21:00)
--- NOTE | 2019-05-16 21:00 | NUR ---
PTS FINGER STICK BLOOD SUGAR READ OVER [address] MARLEY NOTIFIED,HE ORDERED 40 U OF LEVEMIR AND 40 U OF NOVOLOG ONE TIME. PT SELF REPORTED SHE TAKES 40 U OF LANTUS AND [address] MARLEY ORDERED TO KEEP ACCUCHECK AC/HS BUT NEW ORDER TO ADMIN 30 U NOVOLOG WITH MEALS, NO S/S
[2019-05-16] MEDS: CATHETER FLUSH 10 ML SYR IV SCH (23:15)
[2019-05-17] VITALS (17 sets, daily range): BP systolic 137–169; BP diastolic 52–74
[2019-05-17] MEDS: CATHETER FLUSH 10 ML SYR IV SCH ×3 (06:11→20:08)
[2019-05-17 06:16] LABS: HEMOGLOBIN 11.2 G/DL (11.5-16.0); MEAN PLATELET VOLUME 10.4 FL (7.4-10.4); WHITE BLOOD COUNT 8.4 10^3/uL (4.3-11.0)
[2019-05-17] MEDS: LEVOTHYROXINE 88 MCG (LEVOTHORID) TAB PO SCH (06:30)
[2019-05-17] MEDS: inSUlin ASPART (NovoLOG) 1 UNIT/0.01 ML (CHARGE PER UNIT) SC SCH ×4 (06:30→18:12)
[2019-05-17 06:37] LABS: CALCIUM 8.9 MG/DL (8.5-10.1); CREATININE SERUM 1.83 MG/DL (0.60-1.30); POTASSIUM 4.9 MMOL/L (3.6-5.0)
[2019-05-17] MEDS ORDERED: LIDOCAINE 1% INJ 20 ML 20 ML VIAL ONE (07:40)
[2019-05-17] MEDS ORDERED: HEParin (CATH LAB) 2,000 ML IV ONE (07:40)
[2019-05-17] MEDS ORDERED: lisINopril 40 MG (PRINIVIL) TABLET PO SCH (09:00)
[2019-05-17] MEDS: lisINopril 20 MG (PRINIVIL) TABLET PO SCH (09:04)
[2019-05-17] MEDS: ASPIRIN E.C. 81 MG (ECOTRIN) TAB PO SCH (09:04)
[2019-05-17] MEDS: CLOPIDOGREL 75 MG (PLAVIX) TABLET PO SCH (09:05)
[2019-05-17] MEDS: GABAPENTIN 300 MG (NEURONTIN) CAP PO SCH ×2 (09:05→20:08)
[2019-05-17] MEDS: amLODIPine 5 MG (NORVASC) TAB PO SCH (09:05)
[2019-05-17] MEDS ORDERED: DOXA1TAB2 PO (09:42)
[2019-05-17] MEDS ORDERED: GABA-488 PO (09:45)
--- NOTE | 2019-05-17 12:55 | Progress Note - Hospitalist ---
Subjective HPI/CC On Admission Date Seen by Provider: May 17, 2019 Time Seen by Provider: 11:06 Regina is a 63-year-old female with past medical history of coronary artery disease, diabetes, hypertension who presented to the emergency room due to chest pain. She reports that she developed chest pain yesterday she took 2 o r 3 nitroglycerin and the pain resolved. This morning the pain awoke her from sleep. She took 2 or 3 more nitroglycerin without any relief. She states she was diaphoretic and short of breath. She thought it was similar to her previous heart attacks. She denied any nausea. She did have some right shoulder pain with this but was unsure if it was associated with the chest pain or from her recent fall. She called EMS who brought her to the emergency room for evaluation. They gave her 324 mg of aspirin. She was chest pain-free by arrival to the ER. She remains pain-free at this time. Subjective/Events-last exam Pt reports doing well today. no further chest pain. Plan for cath later today. Objective Exam Vital Signs Vital Signs Date Time Temp Pulse Resp B/P (MAP) Pulse Ox O2 Delivery O2 Flow Rate FiO2 05/17/19 08:00 36.8 92 18 166/68 (100) 96 Nasal Cannula 1.50 Capillary Refill : Less Than 3 Seconds General Appearance: No Apparent Distress, WD/WN, Obese Respiratory: Lungs Clear, No Respiratory Distress Cardiovascular: Regular Rate, Rhythm, No Murmur Extremity: No Calf Tenderness, No Pedal Edema Neurologic/Psychiatric: Alert, Oriented x3 Results/Procedures Lab Laboratory Tests 05/17/19 06:03 Patient resulted labs reviewed. Imaging: Reviewed Imaging Report Assessment/Plan Assessment and Plan Assess & Plan/Chief Complaint Chest pain CAD Follows with Dr Sanz Troponin bumped yesterday afternoon, plan for cath today Cardiology consulted, appreciate recs Monitor on telemetry IDDMII Continue home insulin HTN Trend, resume home meds when able Tobacco abuse Recommended cessation, not ready to quit smoking Diagnosis/Problems Diagnosis/Problems (1) Hypertension Status: Chronic Qualifiers: Hypertension type: essential hypertension Qualified Codes: I10 - Essential (primary) hypertension (2) Hypothyroidism Status: Chronic Qualifiers: Hypothyroidism type: unspecified Qualified Codes: E03.9 - Hypothyroidism, unspecified (3) Chest pain Status: Acute Qualifiers: Chest pain type: chest pain due to myocardial ischemia Ischemic chest pain type: stable angina pectoris Qualified Codes: I20.8 - Other forms of angina pectoris (4) Elevated brain natriuretic peptide (BNP) level Status: Acute (5) Multi-vessel coronary artery stenosis Status: Chronic (6) Smoker Status: Chronic (7) Heart failure Qualifiers: Heart failure type: systolic Heart failure chronicity: chronic Qualified Codes: I50.22 - Chronic systolic (congestive) heart failure (8) BMI 36.0-36.9,adult Status: Chronic (9) Insulin dependent diabetes mellitus Status: Chronic Clinical Quality Measures AMI/AHF: ASA po Prior to arrival: Yes DVT/VTE Risk/Contraindication: Risk Factor Score Per Nursin RFS Level Per Nursing on Admit: 4+=Very High ANN NIX MD May 17, 2019 12:55
[2019-05-17] MEDS ORDERED: fentaNYL INJECTION 100 MCG/2 ML AMP ONE (13:15)
[2019-05-17] MEDS ORDERED: MIDAZOLAM 5 MG/5 ML (VERSED) VIAL ONE (13:15)
--- NOTE | 2019-05-17 13:38 | NUR ---
SPOKE WITH THE PT (SHE HAD A MED LIST) WENT THRU THE EXT MED HISTORY AND GET A LIST FROM [facility] TO COMPLETE THE MED REC. PT HAD LISTED COREG 25 (1 TAB BID) AMITRIPTYLINE 100MG (1 TAB DAILY) - THE PT'S FAMILY SAID THIS MED HAS BEEN STOPPED LANTUS AND HUMALOG ARE ALSO LISTED ON THE MED LIST- HOWEVER THE CLINIC THE PT GOT THIS FROM HAS NOT GIVEN HER ANY IN OVER A YEAR. WHEN I ASKED THE PT ABOUT THIS SHE SAYS THAT A FAMILY MEMBER HAD PASSED AND SHE HAD BEEN USING THEIR INSULIN. I INQUIRED IF IT WAS THE SAME INSULIN AND THE STORAGE AND THE PT THOUGHT THE INSULIN WAS THE SAME BUT WASNT SURE. I LET DR. NIX KNOW OF THIS SO NEW INSULIN CAN BE ORDERED UPON DISCHARGE AND THEY WERE LEFT OFF THE MED REC THE FOLLOWING ARE FILL DATES FROM [facility]: 02-14-2019 LISINOPRIL 30MG #90/90DS 02-14-2019 LEVOTHYROXINE 88MCG #90/90DS 02-14-2019 ISOSORBIDE MONO 60MG #90/90DS 03-31-2019 AMLODIPINE 10MG #90/90DS 03-31-2019 ATORVASTATIN 40MG #90/90DS 03-31-2019 BUMETANIDE 1MG #90/90DS 04-07-2019 NITRO 0.4MG @25 04-12-2019 DOXAZOSIN 1MG #90/90DS OTC MEDS: FISH OIL ASPIRIN 81
[2019-05-17] MEDS ORDERED: NS IV 1000 ML 1,000 ML ONE (13:40)
--- NOTE | 2019-05-17 13:40 | NUR ---
TO HEART CATH PER BED.
[2019-05-17] MEDS ORDERED: ADENOSINE 3 MG/1 ML (ADENOSCAN) 30ML VIAL IV ONE (14:08)
[2019-05-17] MEDS ORDERED: HEParin 1000 UNIT/ML (10ML VIAL) FOR BOLUS ONE (14:08)
--- NOTE | 2019-05-17 14:54 | Progress Note - Cardiology ---
Cardiology SOAP Progress Note Subjective: No cp Ch malaise and exertional shortness of breath, unchanged No palp or syncope No focal weakness No n/v/d Objective: I&O/Vital Signs 05/17/19 05/17/19 05/17/19 05/17/19 04:00 07:00 08:00 09:00 Temp 36.4 36.8 Pulse 82 83 92 Resp 22 18 B/P (MAP) 151/73 (99) 166/68 (100) Pulse Ox 93 96 O2 Delivery Nasal Cannula Nasal Cannula Nasal Cannula O2 Flow Rate 1.50 1.50 6.00 05/17/19 05/17/19 12:00 13:00 Temp 36.6 Pulse 82 81 Resp 18 B/P (MAP) 151/69 (96) Pulse Ox 97 O2 Delivery Nasal Cannula O2 Flow Rate 1.50 05/17/19 00:00 Intake Total 1780 ml Output Total 1600 ml Balance 180 ml Weight (Pounds): 179 Weight (Ounces): 5.0 Weight (Calculated Kilograms): 81.992838 Constitutional: AAO x 3, well-developed, well-nourished Respiratory: No accessory muscle use; other (good bilat air entry) Cardiovascular: regular rate-rhythm, S1 and S2, systolic murmur (soft LEV at card base) Gastrointestional: No tender; soft; No guarding, No rebound; audible bowel sounds Extremities: No clubbing, No cyanosis, No significant edema Neurologic/Psychiatric: other (moves all limbs equally) Skin: warm/dry; No diaphoresis, No mottled, No pallor, No rash on exposed areas, No ulcerations on exposed areas Results/Procedures: Labs Laboratory Tests 05/16/19 16:19: Troponin I 0.113H 05/16/19 20:44: Glucometer > 600*H 05/17/19 06:03: White Blood Count 8.4, Red Blood Count 3.71L, Hemoglobin 11.2L, Hematocrit 34L, Mean Corpuscular Volume 93, Mean Corpuscular Hemoglobin 30, Mean Corpuscular Hemoglobin Concent 33, Red Cell Distribution Width 14.0, Platelet Count 119L, Mean Platelet Volume 10.4, Sodium Level 137, Potassium Level 4.9, Chloride Level 103, Carbon Dioxide Level 24, Anion Gap 10, Blood Urea Nitrogen 35H, Creatinine 1.83H, Estimat Glomerular Filtration Rate 28, BUN/Creatinine Ratio 19, Glucose Level 356H, Calcium Level 8.9, Triglycerides Level 172H, Cholesterol Level 141, LDL Cholesterol Direct 92, VLDL Cholesterol 34, HDL Cholesterol 30L 05/17/19 06:07: Glucometer 329H 05/17/19 11:41: Glucometer 155H A/P: Assessment: Ac NSTEMI, probably related to small-vessel CAD (based on cath results of 05/17/19 described below) Card cath of 05/17/19: 20-30% ostial LMCA & distal LMCCA and ostial LAD, patent LAD stent (3x[address] in Jan 2018 at [facility]), mild to mod diffuse CAD and cor calcification of the L cor system; RCA known to be chronically occluded, collateralized from the L; LVEDP 28 mmHg Chronic systolic CHF CKD 3-4 Uncontrolled DM II Not suitable for beta-bernard. H/o up to 2.4 sec pause while on beta-bernard (07-28-18) PAD - Bilateral ostial SFA occlusions seen on angiogram of Jan [address] Merino - being followed by Dr. Sanz HTN HLD - statin tx H/o diabetic neuropathy COPD Tobaccoism - cessation advised Plan: * Medical therapy * Not suitable for bb (see above) * Statin * Monitor labs * Continue slow iv fluids overnight * Advised to quit smoking * Echo to eval LVEF Clinical Quality Measures AMI/AHF: ASA po Prior to arrival: Yes JOSE MIGUEL ALCALA MD FACP FAC CCDS May 17, 2019 14:54
[2019-05-17] MEDS ORDERED: PATIENT MAY USE OWN MEDS, ALL PO SCH (15:00)
--- NOTE | 2019-05-17 15:00 | NUR ---
Pt arrived to ICU room 5 at this time. VSS on arrival. Right groin site/sheath, clean, dry et intact. Will continue to monitor.
[2019-05-17] MEDS: NS IV 1000 ML 1,000 ML IV SCH (16:00)
[2019-05-17] MEDS: ENOXAPARIN 40 MG/0.4 ML (LOVENOX) SYR SQ SCH (18:12)
[2019-05-17] MEDS: QUEtiapine 100 MG (SEROquel) TAB IMMEDIATE RELEASE PO SCH (20:08)
[2019-05-18 01:26] VITALS: BP 158/58
[2019-05-18] MEDS ORDERED: RT-ALBUTEROL/IPRATROPIUM 3 ML (DUONEB) VIAL INH PRN (03:00)
[2019-05-18 03:42] LABS: BASOPHILS % (AUTO) 0 % (0-10); EOSINOPHILS # (AUTO) 0.1 10^3/uL (0.0-0.3); EOSINOPHILS % (AUTO) 2 % (0-10); HEMATOCRIT 36 % (35-52); HEMOGLOBIN 11.4 G/DL (11.5-16.0); LYMPHOCYTES # (AUTO) 0.9 X 10^3 (1.0-4.0); LYMPHOCYTES % (AUTO) 13 % (12-44); MEAN CORPUSCULAR HEMOGLOBIN 31 PG (25-34); MEAN CORPUSCULAR HGB CONC 32 G/DL (32-36); MEAN CORPUSCULAR VOLUME 95 FL (80-99); MEAN PLATELET VOLUME 10.6 FL (7.4-10.4); MONOCYTES # (AUTO) 0.5 X 10^3 (0.0-1.0); MONOCYTES % (AUTO) 7 % (0-12); NEUTROPHILS # (AUTO) 5.3 X 10^3 (1.8-7.8); NEUTROPHILS % (AUTO) 78 % (42-75); PLATELET COUNT 109 10^3/uL (130-400); RED CELL DISTRIBUTION WIDTH 14.2 % (10.0-14.5); WHITE BLOOD COUNT 6.8 10^3/uL (4.3-11.0)
[2019-05-18 03:58] VITALS: BP 174/78
[2019-05-18 04:02] LABS: CALCIUM 8.7 MG/DL (8.5-10.1); CREATININE SERUM 1.46 MG/DL (0.60-1.30); MAGNESIUM 2.3 MG/DL (1.6-2.4); PHOSPHORUS 4.4 MG/DL (2.3-4.7); POTASSIUM 4.2 MMOL/L (3.6-5.0)
[2019-05-18] MEDS: LEVOTHYROXINE 88 MCG (LEVOTHORID) TAB PO SCH (05:46)
[2019-05-18] MEDS: CATHETER FLUSH 10 ML SYR IV SCH (05:47)
[2019-05-18] MEDS: NS IV 1000 ML 1,000 ML IV SCH (05:47)
[2019-05-18] MEDS ORDERED: POTASSIUM CL 10MEQ/50ML IVPB 50 ML IV SCH (06:00)
[2019-05-18] MEDS ORDERED: KCL 20 MEQ TAB (K-DUR) PO SCH (06:00)
[2019-05-18] MEDS ORDERED: MAGNESIUM 1 GM/100 ML IVPB 100 ML IV SCH (06:00)
--- NOTE | 2019-05-18 07:41 | Diagnostic Imaging Report ---
INDICATION: COPD COMPARISON: 05/16/2019 FINDINGS: Single view of the chest demonstrates cardiac enlargement with persistent but decreased central vascular congestion. There is no pneumothorax or effusion. Osseous structures normal. IMPRESSION: Cardiac enlargement with persistent but decreased central vascular congestion. Dictated by: Dictated on workstation # [id number]
[2019-05-18 08:00] VITALS: BP 172/70
[2019-05-18] MEDS ORDERED: RT-ALBUTEROL/IPRATROPIUM 3 ML (DUONEB) VIAL INH SCH (08:00)
--- NOTE | 2019-05-18 09:28 | Progress Note - Cardiology ---
Cardiology SOAP Progress Note Subjective: No cp or palp or syncope or shortness of breath at rest Gen malaise and weakness Denies focal weakness No n/v/d Objective: I&O/Vital Signs 05/17/19 05/17/19 05/18/19 05/18/19 22:00 23:06 00:00 00:19 Temp 36.9 Pulse 80 84 Resp 15 34 B/P (MAP) 153/65 (94) 151/70 (97) Pulse Ox 93 92 O2 Delivery Nasal Cannula Nasal Cannula Nasal Cannula Nasal Cannula O2 Flow Rate 1.00 1.00 1.00 1.00 05/18/19 05/18/19 05/18/19 05/18/19 01:00 01:26 02:46 03:58 Pulse 78 79 100 90 Resp 33 27 B/P (MAP) 158/58 (91) 174/78 (110) Pulse Ox 94 92 92 O2 Delivery Nasal Cannula Nasal Cannula O2 Flow Rate 1.00 1.00 05/18/19 04:00 O2 Delivery Nasal Cannula O2 Flow Rate 1.00 05/18/19 00:00 Intake Total 830 ml Output Total 1200 ml Balance -370 ml Weight (Pounds): 179 Weight (Ounces): 5.0 Weight (Calculated Kilograms): 81.764301 Constitutional: AAO x 3, well-developed, well-nourished Respiratory: No accessory muscle use; other (good bilat air entry) Cardiovascular: regular rate-rhythm, S1 and S2, systolic murmur (soft LEV at card base) Gastrointestional: No tender; soft; No guarding, No rebound; audible bowel sounds Extremities: No clubbing, No cyanosis, No significant edema Neurologic/Psychiatric: other (moves all limbs equally) Skin: warm/dry; No diaphoresis, No mottled, No pallor, No rash on exposed areas, No ulcerations on exposed areas Results/Procedures: Labs Laboratory Tests 05/17/19 11:41: Glucometer 155H 05/17/19 16:50: Glucometer 200H 05/17/19 16:51: Activated Partial Thromboplast Time 35 05/17/19 22:14: Glucometer 171H 05/18/19 02:46: White Blood Count 6.8, Red Blood Count 3.73L, Hemoglobin 11.4L, Hematocrit 36, Mean Corpuscular Volume 95, Mean Corpuscular Hemoglobin 31, Mean Corpuscular Hem oglobin Concent 32, Red Cell Distribution Width 14.2, Platelet Count 109L, Mean Platelet Volume 10.6H, Neutrophils (%) (Auto) 78H, Lymphocytes (%) (Auto) 13, Monocytes (%) (Auto) 7, Eosinophils (%) (Auto) 2, Basophils (%) (Auto) 0, Neutr ophils # (Auto) 5.3, Lymphocytes # (Auto) 0.9L, Monocytes # (Auto) 0.5, Eosinop hils # (Auto) 0.1, Basophils # (Auto) 0.0, Sodium Level 141, Potassium Level 4.2, Chloride Level 106, Carbon Dioxide Level 24, Anion Gap 11, Blood Urea Nitrogen 31H, Creatinine 1.46H, Estimat Glomerular Filtration Rate 36, BUN/Creatinine Ratio 21, Glucose Level 121H, Calcium Level 8.7, Phosphorus Level 4.4, Magnesium Level 2.3 Laboratory Tests 05/16/19 09:41 05/17/19 06:03 05/18/19 02:46 A/P: Assessment: Ac NSTEMI, probably related to small-vessel CAD (based on cath results of 05/17/19 described below) Card cath of 05/17/19: 20-30% ostial LMCA & distal LMCCA and ostial LAD, patent LAD stent (3x[address] in Jan 2018 at [facility]), mild to mod diffuse C AD and cor calcification of the L cor system; RCA known to be chronically occluded, collateralized from the L; LVEDP 28 mmHg Chronic systolic CHF Echo of 05/17/19: LVEF 40-45%, grade 2 diastolic dysfunction, mod MR, enlarged LA, RVSP 30 mmHg CKD 3-4 Uncontrolled DM II Not suitable for beta-bernard. H/o up to 2.4 sec pause while on beta-bernard (07-28-18) PAD - Bilateral ostial SFA occlusions seen on angiogram of Jan [address] Merino - being followed by Dr. Sanz HTN HLD - statin tx H/o diabetic neuropathy COPD Tobaccoism - cessation advised Plan: * Medical therapy * Not suitable for bb (see above) * Statin * Advised to quit smoking * I discussed her CV w/u at this hosp with her and her fam and asnwered questions * Ok to d/c from card standpoint. 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
[2019-05-18] MEDS: amLODIPine 5 MG (NORVASC) TAB PO SCH (09:50)
[2019-05-18] MEDS: lisINopril 20 MG (PRINIVIL) TABLET PO SCH (09:50)
[2019-05-18] MEDS: GABAPENTIN 300 MG (NEURONTIN) CAP PO SCH (09:50)
[2019-05-18] MEDS: CLOPIDOGREL 75 MG (PLAVIX) TABLET PO SCH (09:50)
[2019-05-18] MEDS: inSUlin ASPART (NovoLOG) 1 UNIT/0.01 ML (CHARGE PER UNIT) SC SCH (09:50)
[2019-05-18] MEDS: ASPIRIN E.C. 81 MG (ECOTRIN) TAB PO SCH (09:50)
[2019-05-18] MEDS ORDERED: INSU100V5 SQ (09:55)
[2019-05-18] MEDS ORDERED: INSU100V16 SC (09:55)
[2019-05-18] MEDS ORDERED: CLOP75TA28 PO (09:55)
--- NOTE | 2019-05-18 09:59 | Discharge Inst-Simple/Standard ---
Discharge Inst-Standard Discharge Medications New, Converted or Re-Newed RX: Transmitted to Pharmacy Patient Instructions/Follow Up Plan of Care/Instructions/FU: Please continue to take your medications as written. Please follow up with your PCP in the next week to follow up this hospital stay. Activity as Tolerated: Yes Discharge Diet: ADA Diet, Cardiac Diet Return to The Hospital For: Chest pain, shortness of breath, fever, confusion, if you feel you are getting worse. ANN NIX MD May 18, 2019 09:59
--- NOTE | 2019-05-18 14:41 | NUR ---
PATIENT WAS ON 1 L NC WITH O2 SAT 94%; O2 WAS REMOVED AND PATIENT WAS ON RA FOR 30 MINS WITH O2 SAT 95%. PATIENT WALKED FOR 6 MINS USING A WALKER PATIENTS O2 SAT DID NOT DROP BELOW 89% BUT CAME RIGHT BACK UP. HR RAN FROM 76-92. PATIENT DID NOT REQUIRE ANY O2 AT REST OR ON EXERTION
--- OUTSIDE RECORDS SUMMARY | 2019-05-18 18:36 | XMS REPORT | Continuity of Care Document ---
Author Organization Unknown Address Unknown Phone Unavailable Allergies Active Description Code Type Severity Reaction Onset Reported/Identified Relationship to Patient Clinical Status Yes No Known Drug Allergies [id number] Drug Allergy Unknown N/A 07/27/2018 Yes Beta bernard Beta bernard Unknown 2.4 second paus 05/16/2019 Medications There is no data. 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 02/03/2018 KONRAD GARCIA MD, Ot I21 .4 NON-ST ELEVATION (NSTEMI) MYOCARDIAL INF 02/03/2018 KONRAD GARCIA MD, Ot I25.10 ATHSCL HEART DISEASE OF [place] CORONARY 02/03/2018 KONRAD GARCIA MD, Ot I25 .2 OLD MYOCARDIAL INFARCTION 02/03/2018 KONRAD GARCIA MD, Ot I50.31 ACUTE DIASTOLIC (CONGESTIVE) HEART FAILU 02/03/2018 KONRAD GARCIA MD, Ot I50 .9 HEART FAILURE, UNSPECIFIED 02/03/2018 KONRAD GARCIA MD, Ot I70 .0 ATHEROSCLEROSIS OF [place] 02/03/2018 KONRAD GARCIA MD, Ot I70.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 02/03/2018 KONRAD GARCIA MD, Ot I70 .8 ATHEROSCLEROSIS OF OTHER ARTERIES 02/03/2018 KONRAD GARCIA MD, Ot I70.92 CHRONIC TOTAL OCCLUSION OF ARTERY OF THE 02/03/2018 KONRAD GARCIA MD, Ot J44 .9 CHRONIC OBSTRUCTIVE PULMONARY DISEASE, U 02/03/2018 KONRAD GARCIA MD Ot J96.00 ACUTE RESPIRATORY FAILURE, UNSP W HYPOXI 02/03/2018 KONRAD GARCIA MD Ot L40 .9 PSORIASIS, UNSPECIFIED 02/03/2018 KONRAD GARCIA MD Ot N18 .9 CHRONIC KIDNEY DISEASE, UNSPECIFIED 02/03/2018 KONRAD GARCIA MD Ot R19 .5 OTHER FECAL ABNORMALITIES 02/03/2018 KONRAD GARCIA MD Ot R27 .8 OTHER LACK OF COORDINATION 02/03/2018 KONRAD GARCIA MD Ot R45 .1 RESTLESSNESS AND AGITATION 02/03/2018 KONRAD GARCIA MD Ot Z68.36 BODY MASS INDEX (BMI) 36.0-36.9, ADULT 02/03/2018 KONRAD GARCIA MD Ot Z91.81 HISTORY OF FALLING 06/08/2018 JONO RAINES MD Ot E11. 9 TYPE 2 DIABETES MELLITUS WITHOUT COMPLIC 06/08/2018 JONO RAINES MD Ot F05 DELIRIUM DUE TO KNOWN PHYSIOLOGICAL COND 06/08/2018 JONO RAINES MD Ot F17.210 NICOTINE DEPENDENCE, CIGARETTES, UNCOMPL 06/08/2018 JONO RAINES MD Ot J11. 1 FLU DUE TO UNIDENTIFIED INFLUENZA VIRUS 06/08/2018 JONO RAINES MD Ot J44. 9 CHRONIC OBSTRUCTIVE PULMONARY DISEASE, U 06/08/2018 JONO RAINES MD Ot R19. 7 DIARRHEA, UNSPECIFIED 06/08/2018 JONO RAINES MD Ot Z79. 4 SENIOR CARE (CURRENT) USE OF INSULIN 06/11/2018 JONO RAINES MD Ot E11. 9 TYPE 2 DIABETES MELLITUS WITHOUT COMPLIC 06/11/2018 JONO RAINES MD Ot F05 DELIRIUM DUE TO KNOWN PHYSIOLOGICAL COND 06/11/2018 JONO RAINES MD Ot F17.210 NICOTINE DEPENDENCE, CIGARETTES, UNCOMPL 06/11/2018 JONO RAINES MD Ot J11. 1 FLU DUE TO UNIDENTIFIED INFLUENZA VIRUS 06/11/2018 JONO RAINES MD Ot J44. 9 CHRONIC OBSTRUCTIVE PULMONARY DISEASE, U 06/11/2018 JONO RAINES MD Ot R19. 7 DIARRHEA, UNSPECIFIED 06/11/2018 JONO RAINES MD Ot Z79. 4 SENIOR CARE (CURRENT) USE OF INSULIN 06/23/2018 TRICIA CORDON MD, HENRIETTA M Ot E11.22 TYPE 2 DIABETES MELLITUS W DIABETIC BOOK JACKET COVER MACHINE OPERATOR 06/23/2018 TRICIA CORDON MD, HENRIETTA M Ot I12.9 HYPERTENSIVE CHRONIC KIDNEY DISEASE W ST 06/23/2018 TRICIA CORDON MD, HENRIETTA M Ot N18.3 CHRONIC KIDNEY DISEASE, STAGE 3 (MODERAT 06/23/2018 TRICIA CORDON MD, HENRIETTA M Ot E11.22 TYPE 2 DIABETES MELLITUS W DIABETIC BOOK JACKET COVER MACHINE OPERATOR 06/23/2018 TRICIA CORDON MD, HENRIETTA M Ot I12.9 HYPERTENSIVE CHRONIC KIDNEY DISEASE W ST 06/23/2018 TRICIA CORDON MD, HENRIETTA M Ot N18.3 CHRONIC KIDNEY DISEASE, STAGE 3 (MODERAT 06/24/2018 TRICIA CORDON MD, HENRIETTA M Ot E11.22 TYPE 2 DIABETES MELLITUS W DIABETIC BOOK JACKET COVER MACHINE OPERATOR 06/24/2018 TRICIA CORDON MD, HENRIETTA M Ot I12.9 HYPERTENSIVE CHRONIC KIDNEY DISEASE W ST 06/24/2018 TRICIA CORDON MD, HENRIETTA M Ot N18.3 CHRONIC KIDNEY DISEASE, STAGE 3 (MODERAT 07/27/2018 TRICIA CORDON MD, HENRIETTA M Ot E11.22 TYPE 2 DIABETES MELLITUS W DIABETIC BOOK JACKET COVER MACHINE OPERATOR 07/27/2018 TRICIA CORDON MD, HENRIETTA M Ot I12.9 HYPERTENSIVE CHRONIC KIDNEY DISEASE W ST 07/27/2018 TRICIA CORDON MD, HENRIETTA M Ot N18.3 CHRONIC KIDNEY DISEASE, STAGE 3 (MODERAT 07/28/2018 TRICIA CORDON MD, HENRIETTA M Ot E11.22 TYPE 2 DIABETES MELLITUS W DIABETIC BOOK JACKET COVER MACHINE OPERATOR 07/28/2018 TRICIA CORDON MD, HENRIETTA M Ot I12.9 HYPERTENSIVE CHRONIC KIDNEY DISEASE W ST 07/28/2018 TRICIA CORDON MD, HENRIETTA M Ot N18.3 CHRONIC KIDNEY DISEASE, STAGE 3 (MODERAT 07/28/2018 KONRAD GARCIA MD Ot E11.40 TYPE 2 DIABETES MELLITUS WITH DIABETIC N 07/28/2018 KONRAD GARCIA MD Ot F17.210 NICOTINE DEPENDENCE, CIGARETTES, UNCOMPL 07/28/2018 KONRAD GARCIA MD Ot F32 .9 MAJOR DEPRESSIVE DISORDER, SINGLE EPISOD 07/28/2018 KONRAD GARCIA MD Ot I12 .9 HYPERTENSIVE CHRONIC KIDNEY DISEASE W ST 07/28/2018 KONRAD GARCIA MD Ot I25.10 ATHSCL HEART DISEASE OF [place] CORONARY 07/28/2018 KONRAD GARCIA MD, Ot I25 .2 OLD MYOCARDIAL INFARCTION 07/28/2018 KONRAD GARCIA MD, Ot I73 .9 PERIPHERAL VASCULAR DISEASE, UNSPECIFIED 07/28/2018 KONRAD GARCIA MD, Ot J44 .9 CHRONIC OBSTRUCTIVE PULMONARY DISEASE, U 07/28/2018 KONRAD GARCIA MD, Ot K21 .9 GASTRO-ESOPHAGEAL REFLUX DISEASE WITHOUT 07/28/2018 KONRAD GARCIA MD, Ot L40 .9 PSORIASIS, UNSPECIFIED 07/28/2018 KONRAD GARCIA MD, Ot N18 .3 CHRONIC KIDNEY DISEASE, STAGE 3 (MODERAT 07/28/2018 KONRAD GARCIA MD, Ot N28 .9 DISORDER OF KIDNEY AND URETER, UNSPECIFI 07/28/2018 KONRAD GARCIA MD Ot R00 .1 BRADYCARDIA, UNSPECIFIED 07/28/2018 KONRAD GARCIA MD Ot R07.89 OTHER CHEST PAIN 07/28/2018 KONRAD GARCIA MD Ot 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 07/28/2018 KONRAD GARCIA MD Ot Z79 .4 ENDOSCOPY NURSE (CURRENT) USE OF INSULIN 07/28/2018 KONRAD GARCIA MD Ot Z95 .5 PRESENCE OF CORONARY ANGIOPLASTY IMPLANT 07/29/2018 KONRAD GARCIA MD Ot E11.40 TYPE 2 DIABETES MELLITUS WITH DIABETIC N 07/29/2018 KONRAD GARCIA MD Ot F17.210 NICOTINE DEPENDENCE, CIGARETTES, UNCOMPL 07/29/2018 KONRAD GARCIA MD Ot F32 .9 MAJOR DEPRESSIVE DISORDER, SINGLE EPISOD 07/29/2018 KONRAD GARCIA MD Ot I12 .9 HYPERTENSIVE CHRONIC KIDNEY DISEASE W ST 07/29/2018 KONRAD GARCIA MD, Ot I25.10 ATHSCL HEART DISEASE OF [place] CORONARY 07/29/2018 KONRAD GARCIA MD Ot I25 .2 OLD MYOCARDIAL INFARCTION 07/29/2018 KONRAD GARCIA MD Ot I73 .9 PERIPHERAL VASCULAR DISEASE, UNSPECIFIED 07/29/2018 KONRAD GARCIA MD, Ot J44 .9 CHRONIC OBSTRUCTIVE PULMONARY DISEASE, U 07/29/2018 KONRAD GARCIA MD, Ot K21 .9 GASTRO-ESOPHAGEAL REFLUX DISEASE WITHOUT 07/29/2018 KONRAD GARCIA MD, Ot L40 .9 PSORIASIS, UNSPECIFIED 07/29/2018 KONRAD GARCIA MD, Ot N18 .3 CHRONIC KIDNEY DISEASE, STAGE 3 (MODERAT 07/29/2018 KONRAD GARCIA MD, Ot N28 .9 DISORDER OF KIDNEY AND URETER, UNSPECIFI 07/29/2018 KONRAD GARCIA MD, Ot R00 .1 BRADYCARDIA, UNSPECIFIED 07/29/2018 KONRAD GARCIA MD, Ot R07.89 OTHER CHEST PAIN 07/29/2018 KONRAD GARCIA MD, Ot 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 07/29/2018 KONRAD GARCIA MD, Ot Z79 .4 ENDOSCOPY NURSE (CURRENT) USE OF INSULIN 07/29/2018 KONRAD GARCIA MD, Ot Z95 .5 PRESENCE OF CORONARY ANGIOPLASTY IMPLANT Procedures Code Description Performed By Per formed On [id number] RE SPIRATORY VENTILATION, 24- 96 CONSECUTI 02/01/2018 [id number] [place] ASURE OF CARDIAC SAMPL PRESSURE, L H 02/02/2018 [id number] FL UOROSCOPY OF MULT COR ART USING L OSM 02/02/2018 [id number] FL UOROSCOPY OF LEFT HEART USING LOW OSMO 02/02/2018 [id number] FL UOROSCOPY OF [place], BI LE ART USING L 02/02/2018 Results Test Result Range Methicillin resistant Staphylococcus aur eus (MRSA) screening culture - 02/01/18 03:25 Methicillin resistant Staphylococcus aureus (MRSA) scr eening culture NEG NRG Complete blood count (CBC) with automate d white blood cell (WBC) differential - 02/01/18 03:43 Blood leukocytes automated count (number/volume) 8.4 10*3/uL 4.3-11.0 Blood erythrocytes automated count (number/volume) 4.22 10*6/uL 4.35-5.85 Venous blood hemoglobin measurement (mass/volume) 13.3 g/dL 11.5-16.0 Blood hematocrit (volume fraction) 38 % 35-52 Automated erythrocyte mean corpuscular volume 91 [ foz_us] 80-99 Automated erythrocyte mean corpuscular h emoglobin (mass per erythrocyte) 32 pg 25-34 Automated erythrocyte mean corpuscular h emoglobin concentration measurement (mass/volume) 35 g/dL 32-36 Automated erythrocyte distribution width ratio 13. 5 % 10.0- 14.5 Automated blood platelet count (count/volume) 104 10*3/uL 130-400 Automated blood platelet mean volume measurement 10.6 [foz_us] 7.4-10.4 Automated blood neutrophils/100 leukocytes 74 % 42-75 Automated blood lymphocytes/100 leukocytes 16 % 12-44 Blood monocytes/100 leukocytes 8 % 0-12 Automated blood eosinophils/100 leukocytes 3 % 0-10 Automated blood basophils/100 leukocytes 0 % 0-10 Blood neutrophils automated count (number/volume) 6.2 10*3 1.8-7.8 Blood lymphocytes automated count (number/volume) 1.3 10*3 1.0-4.0 Blood monocytes automated count (number/volume) 0. 7 10*3 0.0-1.0 Automated eosinophil count 0.2 10*3/uL 0 .0-0.3 Automated blood basophil count (count/volume) 0.0 10*3/uL 0.0-0.1 Whole blood basic metabolic panel - 01/08 08/24 03:43 Serum or plasma sodium measurement (moles/volume) 140 mmol/L 135-145 Serum or plasma potassium measurement (moles/volume) 3.8 mmol/L 3.6-5.0 Serum or plasma chloride measurement (moles/volume) 109 mmol/L 98-107 Carbon dioxide 19 mmol/L 21-32 Serum or plasma anion gap determination (moles/volume) 12 mmol/L 5-14 Serum or plasma urea nitrogen measurement (mass/volume ) 28 mg/dL 7-18 Serum or plasma creatinine measurement (mass/volume) 1.31 mg/dL 0.60-1.30 Serum or plasma urea nitrogen/creatinine mass ratio 21 NRG Serum or plasma creatinine measurement w ith calculation of estimated glomerular filtration rate 41 NRG Serum or plasma glucose measurement (mass/volume) 155 mg/dL 70-105 Serum or plasma calcium measurement (mass/volume) 8.7 mg/dL 8.5-10.1 Serum or plasma phosphate measurement (m ass/volume) - 02/01/18 03:43 Serum or plasma phosphate measurement (mass/volume) 3.7 mg/dL 2.3-4.7 Magnesium - 02/01/18 03:43 Magnesium 1.9 mg/dL 1.8-2.4 Serum or plasma troponin i.cardiac measu rement (mass/volume) - 02/01/18 03:43 Serum or plasma troponin i.cardiac measurement (mass/v olume) < ng/mL <0.30 Lipid 1996 panel - 02/01/18 03:43 Serum or plasma triglyceride measurement (mass/volume) 182 mg/dL <150 Serum or plasma cholesterol measurement (mass/volume) 185 mg/dL < 200 Serum or plasma cholesterol in HDL measurement (mass/v olume) 35 mg/dL 40-60 Cholesterol in LDL [mass/volume] in serum or plasma by direct assay 127 mg/dL 1-129 Serum or plasma cholesterol in VLDL measurement (mass/ volume) 36 mg/dL 5-40 Activated partial thromboplastin time (a PTT) in platelet poor plasma bycoagulation assay - 02/01/18 06:47 Activated partial thromboplastin time (a PTT) in platelet poor plasma bycoagulation assay 77 s 24-35 Urine drug screening test - 02/01/18 07: 40 Urine phencyclidine detection by screening method NEGATIVE NEGATIVE Urine benzodiazepines detection by screening method NEGATIVE NEGATIVE Urine cocaine detection NEGATIVE NEGATI VE Urine amphetamines detection by screening method N EGATIVE NEGATIVE Urine methamphetamine detection by screening method NEGATIVE NEGATIVE Urine cannabinoids detection by screening method N EGATIVE NEGATIVE Urine opiates detection by screening method NEGATI VE NEGATIVE Urine barbiturates detection NEGATIVE N EGATIVE Screening urine tricyclic antidepressants detection POSITIVE NEGATIVE Urine methadone detection by screening method NEGA TIVE NEGATIVE Urine oxycodone detection NEGATIVE NEGA TIVE Urine propoxyphene detection NEGATIVE N EGATIVE Capillary blood glucose measurement by g lucometer (mass/volume) - 02/01/18 11:13 Capillary blood glucose measurement by glucometer (mas s/volume) 295 mg/dL 70-110 Activated partial thromboplastin time (a PTT) in platelet poor plasma bycoagulation assay - 02/01/18 12:55 Activated partial thromboplastin time (a PTT) in platelet poor plasma bycoagulation assay 46 s 24-35 Serum or plasma troponin i.cardiac measu rement (mass/volume) - 02/01/18 12:55 Serum or plasma troponin i.cardiac measurement (mass/v olume) 0.31 ng/mL <0.30 Sputum Gram stain - 02/01/18 16:15 Sputum Gram stain Few Gram negative bacilli NRG Bacterial sputum culture - 02/01/18 16:1 5 FREE TEXT EXTERNAL NOT STREP PNEUMONIAE, NO FURTHER TESTING NRG QUANTITY OF GROWTH Moderate Growth NRG FREE TEXT ENTRY 2 SENSITIVITY REPORTED 02/04/18 11 :05 NRG Bacterial sputum culture [id number] NRG RML Sensitivity Panel - 02/01/18 16:15 Gentamicin susceptibility test by minimum inhibitory c oncentration <= NRG Levofloxacin susceptibility test by minimum inhibitory concentration <= NRG Tobramycin susceptibility test by minimum inhibitory c oncentration S NRG Piperacillin/tazobactam susceptibility t est by minimum inhibitory concentration = NRG Ciprofloxacin susceptibility test by minimum inhibitor y concentration <= NRG Meropenem susceptibility test by minimum inhibitory co ncentration 0.5 NRG Aztreonam susceptibility test by minimum inhibitory co ncentration 8 NRG Cefepime susceptibility test by minimum inhibitory con centration 4 NRG Imipenem susceptibility test by minimum inhibitory con centration 2 NRG Ceftazidime susceptibility test by minimum inhibitory concentration 4 NRG Serum or plasma lithium measurement (mol es/volume) - 02/01/18 16:35 BNP level 1870.6 pg/mL <100.0 Bacterial blood culture - 02/01/18 16:35 Bacterial blood culture NG NRG Complete blood count (CBC) with automate d white blood cell (WBC) differential - 02/01/18 16:45 Blood leukocytes automated count (number/volume) 10.0 10*3/uL 4.3-11.0 Blood erythrocytes automated count (number/volume) 3.95 10*6/uL 4.35-5.85 Venous blood hemoglobin measurement (mass/volume) 12.5 g/dL 11.5-16.0 Blood hematocrit (volume fraction) 37 % 35-52 Automated erythrocyte mean corpuscular volume 93 [ foz_us] 80-99 Automated erythrocyte mean corpuscular h emoglobin (mass per erythrocyte) 32 pg 25-34 Automated erythrocyte mean corpuscular h emoglobin concentration measurement (mass/volume) 34 g/dL 32-36 Automated erythrocyte distribution width ratio 13. 5 % 10.0- 14.5 Automated blood platelet count (count/volume) 111 10*3/uL 130-400 Automated blood platelet mean volume measurement 10.9 [foz_us] 7.4-10.4 Automated blood neutrophils/100 leukocytes 89 % 42-75 Automated blood lymphocytes/100 leukocytes 6 % 12-44 Blood monocytes/100 leukocytes 5 % 0-12 Automated blood eosinophils/100 leukocytes 0 % 0-10 Automated blood basophils/100 leukocytes 0 % 0-10 Blood neutrophils automated count (number/volume) 8.9 10*3 1.8-7.8 Blood lymphocytes automated count (number/volume) 0.6 10*3 1.0-4.0 Blood monocytes automated count (number/volume) 0. 5 10*3 0.0-1.0 Automated eosinophil count 0.0 10*3/uL 0 .0-0.3 Automated blood basophil count (count/volume) 0.0 10*3/uL 0.0-0.1 Comprehensive metabolic panel - 02/01/18 16:45 Serum or plasma sodium measurement (moles/volume) 139 mmol/L 135-145 Serum or plasma potassium measurement (moles/volume) 4.6 mmol/L 3.6-5.0 Serum or plasma chloride measurement (moles/volume) 110 mmol/L 98-107 Carbon dioxide 20 mmol/L 21-32 Serum or plasma anion gap determination (moles/volume) 9 mmol/L 5-14 Serum or plasma urea nitrogen measurement (mass/volume ) 26 mg/dL 7-18 Serum or plasma creatinine measurement (mass/volume) 1.27 mg/dL 0.60-1.30 Serum or plasma urea nitrogen/creatinine mass ratio 20 NRG Serum or plasma creatinine measurement w ith calculation of estimated glomerular filtration rate 43 NRG Serum or plasma glucose measurement (mass/volume) 205 mg/dL 70-105 Serum or plasma calcium measurement (mass/volume) 8.0 mg/dL 8.5-10.1 Serum or plasma total bilirubin measurement (mass/volu me) 0.4 mg/dL 0.1-1.0 Serum or plasma alkaline phosphatase alexia surement (enzymatic activity/volume) 64 U/L 40-136 Serum or plasma aspartate aminotransfera se measurement (enzymatic activity/volume) 18 U/L 5-34 Serum or plasma alanine aminotransferase measurement (enzymatic activity/volume) 14 U/L 0-55 Serum or plasma protein measurement (mass/volume) 6.3 g/dL 6.4-8.2 Serum or plasma albumin measurement (mass/volume) 3.2 g/dL 3.2-4.5 CALCIUM CORRECTED 8.6 mg/dL 8.5-10.1 Blood manual differential performed dete ction - 02/01/18 16:45 Blood monocytes/100 leukocytes 4 % NRG Manual blood segmented neutrophils/100 leukocytes 86 % NRG Blood band neutrophils/100 leukocytes 0 % NRG Manual blood lymphocytes/100 leukocytes 9 % NRG Manual eosinophils/100 leukocytes in nose 1 % NRG Manual blood basophils/100 leukocytes 0 % NRG Blood erythrocyte morphology finding identification NORMAL NRG Bacterial blood culture - 02/01/18 16:45 Bacterial blood culture NG NRG Serum or plasma triglyceride measurement (mass/volume) - 02/01/18 18:33 Serum or plasma triglyceride measurement (mass/volume) 312 mg/dL <150 Arterial blood gas measurement - 8 20:05 Blood pCO2 47 mm[Hg] 35-45 Blood pO2 120 mm[Hg] 79-93 Arterial blood bicarbonate measurement (moles/volume) 23 mmol/L 23-27 Arterial blood base excess by calculation -3.0 mmo l/L -2.5-2.5 Arterial blood oxygen saturation measurement 99 % 94-100 * Inhaled oxygen flow rate 50% NRG Arterial blood pH measurement with patient temperature correction 7.30 7.37-7.43 Arterial blood carbon dioxide, total measurement (mole s/volume) 24.1 mmol/L 21.0-31.0 Body site ARTLINE NRG Assessment of wrist artery patency prior to arterial p uncture ART LINE NRG Setting of ventilation mode YES NR G Measurement of body temperature 96.5 NRG Arterial blood gas measurement - 8 03:10 Blood pCO2 37 mm[Hg] 35-45 Blood pO2 70 mm[Hg] 79-93 Arterial blood bicarbonate measurement (moles/volume) 21 mmol/L 23-27 Arterial blood base excess by calculation -3.6 mmo l/L -2.5-2.5 Arterial blood oxygen saturation measurement 96 % 94-100 * Inhaled oxygen flow rate 30% NRG Arterial blood pH measurement with patient temperature correction 7.37 7.37-7.43 Arterial blood carbon dioxide, total measurement (mole s/volume) 22.3 mmol/L 21.0-31.0 Body site ARTLINE NRG Assessment of wrist artery patency prior to arterial p uncture ARTLINE NRG Setting of ventilation mode YES NR G Measurement of body temperature 96.0 NRG Complete blood count (CBC) with automate d white blood cell (WBC) differential - 02/02/18 03:10 Blood leukocytes automated count (number/volume) 7.5 10*3/uL 4.3-11.0 Blood erythrocytes automated count (number/volume) 3.56 10*6/uL 4.35-5.85 Venous blood hemoglobin measurement (mass/volume) 11.3 g/dL 11.5-16.0 Blood hematocrit (volume fraction) 33 % 35-52 Automated erythrocyte mean corpuscular volume 93 [ foz_us] 80-99 Automated erythrocyte mean corpuscular h emoglobin (mass per erythrocyte) 32 pg 25-34 Automated erythrocyte mean corpuscular h emoglobin concentration measurement (mass/volume) 34 g/dL 32-36 Automated erythrocyte distribution width ratio 13. 6 % 10.0- 14.5 Automated blood platelet count (count/volume) 91 1 0*3/uL 130-400 Automated blood platelet mean volume measurement 11.0 [foz_us] 7.4-10.4 Automated blood neutrophils/100 leukocytes 85 % 42-75 Automated blood lymphocytes/100 leukocytes 9 % 12-44 Blood monocytes/100 leukocytes 6 % 0-12 Automated blood eosinophils/100 leukocytes 1 % 0-10 Automated blood basophils/100 leukocytes 0 % 0-10 Blood neutrophils automated count (number/volume) 6.3 10*3 1.8-7.8 Blood lymphocytes automated count (number/volume) 0.6 10*3 1.0-4.0 Blood monocytes automated count (number/volume) 0. 5 10*3 0.0-1.0 Automated eosinophil count 0.1 10*3/uL 0 .0-0.3 Automated blood basophil count (count/volume) 0.0 10*3/uL 0.0-0.1 Whole blood basic metabolic panel - 01/08 09/23 03:10 Serum or plasma sodium measurement (moles/volume) 139 mmol/L 135-145 Serum or plasma potassium measurement (moles/volume) 4.0 mmol/L 3.6-5.0 Serum or plasma chloride measurement (moles/volume) 110 mmol/L 98-107 Carbon dioxide 18 mmol/L 21-32 Serum or plasma anion gap determination (moles/volume) 11 mmol/L 5-14 Serum or plasma urea nitrogen measurement (mass/volume ) 32 mg/dL 7-18 Serum or plasma creatinine measurement (mass/volume) 1.68 mg/dL 0.60-1.30 Serum or plasma urea nitrogen/creatinine mass ratio 19 NRG Serum or plasma creatinine measurement w ith calculation of estimated glomerular filtration rate 31 NRG Serum or plasma glucose measurement (mass/volume) 243 mg/dL 70-105 Serum or plasma calcium measurement (mass/volume) 8.1 mg/dL 8.5-10.1 Serum or plasma phosphate measurement (m ass/volume) - 02/02/18 03:10 Serum or plasma phosphate measurement (mass/volume) 4.4 mg/dL 2.3-4.7 Magnesium - 02/02/18 03:10 Magnesium 1.8 mg/dL 1.8-2.4 Occult blood panel - gastric fluid - 07:15 Gastric fluid gastrointestinal hemoglobin detection POSITIVE NEGATIVE Complete urinalysis with reflex to cultu re - 02/02/18 07:15 Urine color determination YELLOW NRG Urine clarity determination CLEAR NR G Urine pH measurement by test strip 5 5-9 Specific gravity of urine by test strip 1.020 1.016-1.022 Urine protein assay by test strip, semi-quantitative 3+ NEGATIVE Urine glucose detection by automated test strip 1+ NEGATIVE Erythrocytes detection in urine sediment by light micr oscopy 5+ NEGATIVE Urine ketones detection by automated test strip NE GATIVE NEGATIVE Urine nitrite detection by test strip NEGATIVE NEGATIVE Urine total bilirubin detection by test strip NEGA TIVE NEGATIVE Urine urobilinogen measurement by automated test strip (mass/volume) NORMAL NORMAL Urine leukocyte esterase detection by dipstick 1+ NEGATIVE Automated urine sediment erythrocyte cou nt by microscopy (number/high power field) TNTC NRG Automated urine sediment leukocyte count by microscopy (number/high power field) [HPF] NRG Bacteria detection in urine sediment by light microsco py TRACE NRG Squamous epithelial cells detection in u rine sediment by light microscopy 0-2 NRG Crystals detection in urine sediment by light microsco py PRESENT NRG Casts detection in urine sediment by light microscopy PRESENT NRG Mucus detection in urine sediment by light microscopy NEGATIVE NRG Complete urinalysis with reflex to culture YES NRG Amorphous sediment detection in urine sediment by ligh t microscopy RARE YEISON URATES NRG Granular casts detection in urine sediment by light mi croscopy 0-2 NRG Bacterial urine culture - 02/02/18 07:15 Bacterial urine culture NG NRG Capillary blood glucose measurement by g lucometer (mass/volume) - 02/02/18 14:04 Capillary blood glucose measurement by glucometer (mas s/volume) 208 mg/dL 70-110 Capillary blood glucose measurement by g lucometer (mass/volume) - 02/02/18 19:41 Capillary blood glucose measurement by glucometer (mas s/volume) 151 mg/dL 70-110 Complete blood count (CBC) with automate d white blood cell (WBC) differential - 02/03/18 04:05 Blood leukocytes automated count (number/volume) 7.0 10*3/uL 4.3-11.0 Blood erythrocytes automated count (number/volume) 3.34 10*6/uL 4.35-5.85 Venous blood hemoglobin measurement (mass/volume) 10.6 g/dL 11.5-16.0 Blood hematocrit (volume fraction) 32 % 35-52 Automated erythrocyte mean corpuscular volume 95 [ foz_us] 80-99 Automated erythrocyte mean corpuscular h emoglobin (mass per erythrocyte) 32 pg 25-34 Automated erythrocyte mean corpuscular h emoglobin concentration measurement (mass/volume) 34 g/dL 32-36 Automated erythrocyte distribution width ratio 13. 9 % 10.0- 14.5 Automated blood platelet count (count/volume) 98 1 0*3/uL 130-400 Automated blood platelet mean volume measurement 10.8 [foz_us] 7.4-10.4 Automated blood neutrophils/100 leukocytes 83 % 42-75 Automated blood lymphocytes/100 leukocytes 8 % 12-44 Blood monocytes/100 leukocytes 8 % 0-12 Automated blood eosinophils/100 leukocytes 1 % 0-10 Automated blood basophils/100 leukocytes 0 % 0-10 Blood neutrophils automated count (number/volume) 5.8 10*3 1.8-7.8 Blood lymphocytes automated count (number/volume) 0.5 10*3 1.0-4.0 Blood monocytes automated count (number/volume) 0. 6 10*3 0.0-1.0 Automated eosinophil count 0.1 10*3/uL 0 .0-0.3 Automated blood basophil count (count/volume) 0.0 10*3/uL 0.0-0.1 Arterial blood gas measurement - 8 04:05 Blood pCO2 45 mm[Hg] 35-45 Blood pO2 84 mm[Hg] 79-93 Arterial blood bicarbonate measurement (moles/volume) 23 mmol/L 23-27 Arterial blood base excess by calculation -2.4 mmo l/L -2.5-2.5 Arterial blood oxygen saturation measurement 96 % 94-100 * Inhaled oxygen flow rate 30% NRG Arterial blood pH measurement with patient temperature correction 7.32 7.37-7.43 Arterial blood carbon dioxide, total measurement (mole s/volume) 23.8 mmol/L 21.0-31.0 Body site ARTLINE NRG Assessment of wrist artery patency prior to arterial p uncture ARTLINE NRG Setting of ventilation mode YES NR G Measurement of body temperature 100.4 NRG Whole blood basic metabolic panel - 01/08 10/24 04:05 Serum or plasma sodium measurement (moles/volume) 140 mmol/L 135-145 Serum or plasma potassium measurement (moles/volume) 3.8 mmol/L 3.6-5.0 Serum or plasma chloride measurement (moles/volume) 110 mmol/L 98-107 Carbon dioxide 19 mmol/L 21-32 Serum or plasma anion gap determination (moles/volume) 11 mmol/L 5-14 Serum or plasma urea nitrogen measurement (mass/volume ) 33 mg/dL 7-18 Serum or plasma creatinine measurement (mass/volume) 1.92 mg/dL 0.60-1.30 Serum or plasma urea nitrogen/creatinine mass ratio 17 NRG Serum or plasma creatinine measurement w ith calculation of estimated glomerular filtration rate 27 NRG Serum or plasma glucose measurement (mass/volume) 134 mg/dL 70-105 Serum or plasma calcium measurement (mass/volume) 8.3 mg/dL 8.5-10.1 Serum or plasma phosphate measurement (m ass/volume) - 02/03/18 04:05 Serum or plasma phosphate measurement (mass/volume) 4.3 mg/dL 2.3-4.7 Magnesium - 02/03/18 04:05 Magnesium 1.7 mg/dL 1.8-2.4 Capillary blood glucose measurement by g lucometer (mass/volume) - 02/03/18 12:46 Capillary blood glucose measurement by glucometer (mas s/volume) 154 mg/dL 70-110 Influenza virus A and B antigen detectio n - 06/08/18 14:45 CALL POSITIVES (F1 HELP) MITCH ZHU AT 1518. LZ NRG FLU RESULT POSITIVE FOR INFLUENZA A ANT IGEN, NEG FOR B ANTIGEN, BY IA NRG Urine protein/creatinine mass ratio - 15:07 Urine protein measurement (mass/volume) 81 mg/dL 6-12 Urine creatinine measurement (mass/volume) 59 mg/d L 30-125 Urine protein/creatinine mass ratio 1.37 NRG Complete urinalysis with reflex to cultu re - 06/21/18 15:17 Urine color determination YELLOW NRG Urine clarity determination CLEAR NR G Urine pH measurement by test strip 5.5 5-9 Specific gravity of urine by test strip 1.015 1.016-1.022 Urine protein assay by test strip, semi-quantitative 2+ NEGATIVE Urine glucose detection by automated test strip NE GATIVE NEGATIVE Erythrocytes detection in urine sediment by light micr oscopy NEGATIVE NEGATIVE Urine ketones detection by automated test strip NE GATIVE NEGATIVE Urine nitrite detection by test strip NEGATIVE NEGATIVE Urine total bilirubin detection by test strip NEGA TIVE NEGATIVE Urine urobilinogen measurement by automated test strip (mass/volume) 0.2 mg/dL NORMAL Urine leukocyte esterase detection by dipstick NEG ATIVE NEGATIVE Automated urine sediment erythrocyte cou nt by microscopy (number/high power field) NONE NRG Automated urine sediment leukocyte count by microscopy (number/high power field) NONE NRG Bacteria detection in urine sediment by light microsco py NONE NRG Squamous epithelial cells detection in u rine sediment by light microscopy 2-5 NRG Crystals detection in urine sediment by light microsco py NONE NRG Casts detection in urine sediment by light microscopy NONE NRG Mucus detection in urine sediment by light microscopy NEGATIVE NRG Complete urinalysis with reflex to culture NO NRG Complete blood count (CBC) with automate d white blood cell (WBC) differential - 06/21/18 15:17 Blood leukocytes automated count (number/volume) 8.2 10*3/uL 4.3-11.0 Blood erythrocytes automated count (number/volume) 3.73 10*6/uL 4.35-5.85 Venous blood hemoglobin measurement (mass/volume) 11.5 g/dL 11.5-16.0 Blood hematocrit (volume fraction) 34 % 35-52 Automated erythrocyte mean corpuscular volume 90 [ foz_us] 80-99 Automated erythrocyte mean corpuscular h emoglobin (mass per erythrocyte) 31 pg 25-34 Automated erythrocyte mean corpuscular h emoglobin concentration measurement (mass/volume) 34 g/dL 32-36 Automated erythrocyte distribution width ratio 12. 8 % 10.0- 14.5 Automated blood platelet count (count/volume) 188 10*3/uL 130-400 Automated blood platelet mean volume measurement 10.3 [foz_us] 7.4-10.4 Automated blood neutrophils/100 leukocytes 78 % 42-75 Automated blood lymphocytes/100 leukocytes 12 % 12-44 Blood monocytes/100 leukocytes 6 % 0-12 Automated blood eosinophils/100 leukocytes 3 % 0-10 Automated blood basophils/100 leukocytes 0 % 0-10 Blood neutrophils automated count (number/volume) 6.4 10*3 1.8-7.8 Blood lymphocytes automated count (number/volume) 1.0 10*3 1.0-4.0 Blood monocytes automated count (number/volume) 0. 5 10*3 0.0-1.0 Automated eosinophil count 0.3 10*3/uL 0 .0-0.3 Automated blood basophil count (count/volume) 0.0 10*3/uL 0.0-0.1 Serum or plasma renal function panel (Na , K, Cl, CO2, BUN, Cr, glucose,Ca, phos, alb) - 06/21/18 15:17 Serum or plasma sodium measurement (moles/volume) 138 mmol/L 135-145 Serum or plasma potassium measurement (moles/volume) 4.0 mmol/L 3.6-5.0 Serum or plasma chloride measurement (moles/volume) 103 mmol/L 98-107 Carbon dioxide 22 mmol/L 21-32 Serum or plasma anion gap determination (moles/volume) 13 mmol/L 5-14 Serum or plasma urea nitrogen measurement (mass/volume ) 25 mg/dL 7-18 Serum or plasma creatinine measurement (mass/volume) 1.65 mg/dL 0.60-1.30 Serum or plasma urea nitrogen/creatinine mass ratio 15 NRG Serum or plasma creatinine measurement w ith calculation of estimated glomerular filtration rate 32 NRG Serum or plasma glucose measurement (mass/volume) 182 mg/dL 70-105 Serum or plasma calcium measurement (mass/volume) 9.6 mg/dL 8.5-10.1 Serum or plasma albumin measurement (mass/volume) 3.7 g/dL 3.2-4.5 Serum or plasma phosphate measurement (mass/volume) 4.7 mg/dL 2.3-4.7 Hemoglobin A1c - 06/21/18 15:17 Blood hemoglobin A1C measurement (mass/volume) 7.0 % 4.0-5.6 MEAN BLOOD GLUCOSE 154 % <=126 Urine microalbumin measurement by test s trip (mass/volume) - 06/21/18 15:17 Urine creatinine measurement (mass/volume) 61 % NRG Microalbumin [mass/volume] in urine 484.7 % 0.0-20.0 Microalbumin/creatinine [ratio] in urine 794.6 mg/ g{Cre} 0.0-30.0 Complete blood count (CBC) with automate d white blood cell (WBC) differential - 07/27/18 23:06 Blood leukocytes automated count (number/volume) 6.3 10*3/uL 4.3-11.0 Blood erythrocytes automated count (number/volume) 3.49 10*6/uL 4.35-5.85 Venous blood hemoglobin measurement (mass/volume) 10.7 g/dL 11.5-16.0 Blood hematocrit (volume fraction) 31 % 35-52 Automated erythrocyte mean corpuscular volume 89 [ foz_us] 80-99 Automated erythrocyte mean corpuscular h emoglobin (mass per erythrocyte) 31 pg 25-34 Automated erythrocyte mean corpuscular h emoglobin concentration measurement (mass/volume) 34 g/dL 32-36 Automated erythrocyte distribution width ratio 13. 3 % 10.0- 14.5 Automated blood platelet count (count/volume) 131 10*3/uL 130-400 Automated blood platelet mean volume measurement 10.7 [foz_us] 7.4-10.4 Automated blood neutrophils/100 leukocytes 71 % 42-75 Automated blood lymphocytes/100 leukocytes 19 % 12-44 Blood monocytes/100 leukocytes 7 % 0-12 Automated blood eosinophils/100 leukocytes 3 % 0-10 Automated blood basophils/100 leukocytes 1 % 0-10 Blood neutrophils automated count (number/volume) 4.5 10*3 1.8-7.8 Blood lymphocytes automated count (number/volume) 1.2 10*3 1.0-4.0 Blood monocytes automated count (number/volume) 0. 4 10*3 0.0-1.0 Automated eosinophil count 0.2 10*3/uL 0 .0-0.3 Automated blood basophil count (count/volume) 0.0 10*3/uL 0.0-0.1 PT panel in platelet poor plasma by coag ulation assay - 07/27/18 23:06 Prothrombin time (PT) in platelet poor plasma by coagu lation assay 12.6 s 12.2-14.7 INR in platelet poor plasma or blood by coagulation as say 0.9 0.8-1.4 Activated partial thromboplastin time (a PTT) in platelet poor plasma bycoagulation assay - 07/27/18 23:06 Activated partial thromboplastin time (a PTT) in platelet poor plasma bycoagulation assay 30 s 24-35 TROPONIN T - 07/27/18 23:06 TROPONIN T 60 % <=10 Comprehensive metabolic panel - 07/27/18 23:06 Serum or plasma sodium measurement (moles/volume) 134 mmol/L 135-145 Serum or plasma potassium measurement (moles/volume) 3.6 mmol/L 3.6-5.0 Serum or plasma chloride measurement (moles/volume) 97 mmol/L 98-107 Carbon dioxide 22 mmol/L 21-32 Serum or plasma anion gap determination (moles/volume) 15 mmol/L 5-14 Serum or plasma urea nitrogen measurement (mass/volume ) 41 mg/dL 7-18 Serum or plasma creatinine measurement (mass/volume) 1.62 mg/dL 0.60-1.30 Serum or plasma urea nitrogen/creatinine mass ratio 25 NRG Serum or plasma creatinine measurement w ith calculation of estimated glomerular filtration rate 32 NRG Serum or plasma glucose measurement (mass/volume) 265 mg/dL 70-105 Serum or plasma calcium measurement (mass/volume) 8.6 mg/dL 8.5-10.1 Serum or plasma total bilirubin measurement (mass/volu me) 0.4 mg/dL 0.1-1.0 Serum or plasma alkaline phosphatase alexia surement (enzymatic activity/volume) 84 U/L 40-136 Serum or plasma aspartate aminotransfera se measurement (enzymatic activity/volume) 16 U/L 5-34 Serum or plasma alanine aminotransferase measurement (enzymatic activity/volume) 17 U/L 0-55 Serum or plasma protein measurement (mass/volume) 7.2 g/dL 6.4-8.2 Serum or plasma albumin measurement (mass/volume) 3.8 g/dL 3.2-4.5 CALCIUM CORRECTED 8.8 mg/dL 8.5-10.1 Magnesium - 07/27/18 23:06 Magnesium 1.9 mg/dL 1.8-2.4 Myoglobin, serum - 07/27/18 23:06 Myoglobin, serum 76.4 ng/mL 10.0-92.0 Lipase - 07/27/18 23:06 Lipase 19 U/L 8-78 TROPONIN T - 07/28/18 01:03 TROPONIN T 66 % <=10 Myoglobin, serum - 07/28/18 01:03 Myoglobin, serum 103.3 ng/mL 10.0-92.0 Complete blood count (CBC) with automate d white blood cell (WBC) differential - 07/28/18 04:22 Blood leukocytes automated count (number/volume) 8.6 10*3/uL 4.3-11.0 Blood erythrocytes automated count (number/volume) 3.53 10*6/uL 4.35-5.85 Venous blood hemoglobin measurement (mass/volume) 10.9 g/dL 11.5-16.0 Blood hematocrit (volume fraction) 31 % 35-52 Automated erythrocyte mean corpuscular volume 89 [ foz_us] 80-99 Automated erythrocyte mean corpuscular h emoglobin (mass per erythrocyte) 31 pg 25-34 Automated erythrocyte mean corpuscular h emoglobin concentration measurement (mass/volume) 35 g/dL 32-36 Automated erythrocyte distribution width ratio 13. 3 % 10.0- 14.5 Automated blood platelet count (count/volume) 135 10*3/uL 130-400 Automated blood platelet mean volume measurement 10.3 [foz_us] 7.4-10.4 Automated blood neutrophils/100 leukocytes 78 % 42-75 Automated blood lymphocytes/100 leukocytes 13 % 12-44 Blood monocytes/100 leukocytes 7 % 0-12 Automated blood eosinophils/100 leukocytes 3 % 0-10 Automated blood basophils/100 leukocytes 0 % 0-10 Blood neutrophils automated count (number/volume) 6.7 10*3 1.8-7.8 Blood lymphocytes automated count (number/volume) 1.1 10*3 1.0-4.0 Blood monocytes automated count (number/volume) 0. 6 10*3 0.0-1.0 Automated eosinophil count 0.2 10*3/uL 0 .0-0.3 Automated blood basophil count (count/volume) 0.0 10*3/uL 0.0-0.1 Comprehensive metabolic panel - 07/28/18 04:22 Serum or plasma sodium measurement (moles/volume) 138 mmol/L 135-145 Serum or plasma potassium measurement (moles/volume) 4.3 mmol/L 3.6-5.0 Serum or plasma chloride measurement (moles/volume) 106 mmol/L 98-107 Carbon dioxide 18 mmol/L 21-32 Serum or plasma anion gap determination (moles/volume) 14 mmol/L 5-14 Serum or plasma urea nitrogen measurement (mass/volume ) 44 mg/dL 7-18 Serum or plasma creatinine measurement (mass/volume) 1.89 mg/dL 0.60-1.30 Serum or plasma urea nitrogen/creatinine mass ratio 23 NRG Serum or plasma creatinine measurement w ith calculation of estimated glomerular filtration rate 27 NRG Serum or plasma glucose measurement (mass/volume) 140 mg/dL 70-105 Serum or plasma calcium measurement (mass/volume) 9.0 mg/dL 8.5-10.1 Serum or plasma total bilirubin measurement (mass/volu me) 0.4 mg/dL 0.1-1.0 Serum or plasma alkaline phosphatase alexia surement (enzymatic activity/volume) 80 U/L 40-136 Serum or plasma aspartate aminotransfera se measurement (enzymatic activity/volume) 16 U/L 5-34 Serum or plasma alanine aminotransferase measurement (enzymatic activity/volume) 20 U/L 0-55 Serum or plasma protein measurement (mass/volume) 7.4 g/dL 6.4-8.2 Serum or plasma albumin measurement (mass/volume) 3.8 g/dL 3.2-4.5 CALCIUM CORRECTED 9.2 mg/dL 8.5-10.1 Serum or plasma troponin i.cardiac measu rement (mass/volume) - 07/28/18 04:22 Serum or plasma troponin i.cardiac measurement (mass/v olume) 0.031 ng/mL <0.028 Serum or plasma lithium measurement (mol es/volume) - 07/28/18 04:22 BNP level 273.7 pg/mL <100.0 Lipid 1996 panel - 07/28/18 04:22 Serum or plasma triglyceride measurement (mass/volume) 361 mg/dL <150 Serum or plasma cholesterol measurement (mass/volume) 141 mg/dL < 200 Serum or plasma cholesterol in HDL measurement (mass/v olume) 24 mg/dL 40-60 Cholesterol in LDL [mass/volume] in serum or plasma by direct assay 59 mg/dL 1-129 Serum or plasma cholesterol in VLDL measurement (mass/ volume) 72 mg/dL 5-40 Complete urinalysis with reflex to cultu re - 07/28/18 09:20 Urine color determination YELLOW NRG Urine clarity determination CLEAR NR G Urine pH measurement by test strip 5 5-9 Specific gravity of urine by test strip 1.010 1.016-1.022 Urine protein assay by test strip, semi-quantitative 3+ NEGATIVE Urine glucose detection by automated test strip 1+ NEGATIVE Erythrocytes detection in urine sediment by light micr oscopy NEGATIVE NEGATIVE Urine ketones detection by automated test strip NE GATIVE NEGATIVE Urine nitrite detection by test strip NEGATIVE NEGATIVE Urine total bilirubin detection by test strip NEGA TIVE NEGATIVE Urine urobilinogen measurement by automated test strip (mass/volume) NORMAL NORMAL Urine leukocyte esterase detection by dipstick 1+ NEGATIVE Automated urine sediment erythrocyte cou nt by microscopy (number/high power field) NONE NRG Automated urine sediment leukocyte count by microscopy (number/high power field) [HPF] NRG Bacteria detection in urine sediment by light microsco py TRACE NRG Squamous epithelial cells detection in u rine sediment by light microscopy 25-50 NRG Crystals detection in urine sediment by light microsco py NONE NRG Casts detection in urine sediment by light microscopy NONE NRG Mucus detection in urine sediment by light microscopy NEGATIVE NRG Complete urinalysis with reflex to culture NO NRG Serum or plasma troponin i.cardiac measu rement (mass/volume) - 07/28/18 10:05 Serum or plasma troponin i.cardiac measurement (mass/v olume) < ng/mL <0.028 Capillary blood glucose measurement by g lucometer (mass/volume) - 07/28/18 11:00 Capillary blood glucose measurement by glucometer (mas s/volume) 158 mg/dL 70-110 Capillary blood glucose measurement by g lucometer (mass/volume) - 07/28/18 15:10 Capillary blood glucose measurement by glucometer (mas s/volume) 228 mg/dL 70-110 Capillary blood glucose measurement by g lucometer (mass/volume) - 07/28/18 20:45 Capillary blood glucose measurement by glucometer (mas s/volume) 244 mg/dL 70-110 Capillary blood glucose measurement by g lucometer (mass/volume) - 07/29/18 06:04 Capillary blood glucose measurement by glucometer (mas s/volume) 143 mg/dL 70-110 Whole blood basic metabolic panel - 07/08 05/25 09:05 Serum or plasma sodium measurement (moles/volume) 142 mmol/L 135-145 Serum or plasma potassium measurement (moles/volume) 4.1 mmol/L 3.6-5.0 Serum or plasma chloride measurement (moles/volume) 111 mmol/L 98-107 Carbon dioxide 18 mmol/L 21-32 Serum or plasma anion gap determination (moles/volume) 13 mmol/L 5-14 Serum or plasma urea nitrogen measurement (mass/volume ) 29 mg/dL 7-18 Serum or plasma creatinine measurement (mass/volume) 1.47 mg/dL 0.60-1.30 Serum or plasma urea nitrogen/creatinine mass ratio 20 NRG Serum or plasma creatinine measurement w ith calculation of estimated glomerular filtration rate 36 NRG Serum or plasma glucose measurement (mass/volume) 165 mg/dL 70-105 Serum or plasma calcium measurement (mass/volume) 8.8 mg/dL 8.5-10.1 Capillary blood glucose measurement by g lucometer (mass/volume) - 07/29/18 09:41 Capillary blood glucose measurement by glucometer (mas s/volume) 287 mg/dL 70-110 Complete blood count (CBC) with automate d white blood cell (WBC) differential - 05/16/19 09:41 Blood leukocytes automated count (number/volume) 7.0 10*3/uL 4.3-11.0 Blood erythrocytes automated count (number/volume) 3.82 10*6/uL 4.35-5.85 Venous blood hemoglobin measurement (mass/volume) 11.8 g/dL 11.5-16.0 Blood hematocrit (volume fraction) 36 % 35-52 Automated erythrocyte mean corpuscular volume 94 [ foz_us] 80-99 Automated erythrocyte mean corpuscular h emoglobin (mass per erythrocyte) 31 pg 25-34 Automated erythrocyte mean corpuscular h emoglobin concentration measurement (mass/volume) 33 g/dL 32-36 Automated erythrocyte distribution width ratio 13. 9 % 10.0- 14.5 Automated blood platelet count (count/volume) 103 10*3/uL 130-400 Automated blood platelet mean volume measurement 10.9 [foz_us] 7.4-10.4 Automated blood neutrophils/100 leukocytes 83 % 42-75 Automated blood lymphocytes/100 leukocytes 9 % 12-44 Blood monocytes/100 leukocytes 6 % 0-12 Automated blood eosinophils/100 leukocytes 2 % 0-10 Automated blood basophils/100 leukocytes 0 % 0-10 Blood neutrophils automated count (number/volume) 5.8 10*3 1.8-7.8 Blood lymphocytes automated count (number/volume) 0.7 10*3 1.0-4.0 Blood monocytes automated count (number/volume) 0. 4 10*3 0.0-1.0 Automated eosinophil count 0.1 10*3/uL 0 .0-0.3 Automated blood basophil count (count/volume) 0.0 10*3/uL 0.0-0.1 PT panel in platelet poor plasma by coag ulation assay - 05/16/19 09:41 Prothrombin time (PT) in platelet poor plasma by coagu lation assay 13.2 s 12.2-14.7 INR in platelet poor plasma or blood by coagulation as say 1.0 0.8-1.4 Activated partial thromboplastin time (a PTT) in platelet poor plasma bycoagulation assay - 05/16/19 09:41 Activated partial thromboplastin time (a PTT) in platelet poor plasma bycoagulation assay 29 s 24-35 Comprehensive metabolic panel - 05/16/19 09:41 Serum or plasma sodium measurement (moles/volume) 135 mmol/L 135-145 Serum or plasma potassium measurement (moles/volume) 4.5 mmol/L 3.6-5.0 Serum or plasma chloride measurement (moles/volume) 98 mmol/L 98-107 Carbon dioxide 24 mmol/L 21-32 Serum or plasma anion gap determination (moles/volume) 13 mmol/L 5-14 Serum or plasma urea nitrogen measurement (mass/volume ) 22 mg/dL 7-18 Serum or plasma creatinine measurement (mass/volume) 1.26 mg/dL 0.60-1.30 Serum or plasma urea nitrogen/creatinine mass ratio 17 NRG Serum or plasma creatinine measurement w ith calculation of estimated glomerular filtration rate 43 NRG Serum or plasma glucose measurement (mass/volume) 437 mg/dL 70-105 Serum or plasma calcium measurement (mass/volume) 8.8 mg/dL 8.5-10.1 Serum or plasma total bilirubin measurement (mass/volu me) 0.8 mg/dL 0.1-1.0 Serum or plasma alkaline phosphatase alexia surement (enzymatic activity/volume) 89 U/L 40-136 Serum or plasma aspartate aminotransfera se measurement (enzymatic activity/volume) 26 U/L 5-34 Serum or plasma alanine aminotransferase measurement (enzymatic activity/volume) 30 U/L 0-55 Serum or plasma protein measurement (mass/volume) 7.5 g/dL 6.4-8.2 Serum or plasma albumin measurement (mass/volume) 4.1 g/dL 3.2-4.5 CALCIUM CORRECTED 8.7 mg/dL 8.5-10.1 Magnesium - 05/16/19 09:41 Magnesium 2.1 mg/dL 1.6-2.4 TROPONIN I FS - 05/16/19 09:41 TROPONIN I FS < 0.30 <0.30 PROBNP FS - 05/16/19 09:41 PROBNP FS 2565.0 pg/mL <75.0 Serum or plasma troponin i.cardiac measu rement (mass/volume) - 05/16/19 16:19 Serum or plasma troponin i.cardiac measurement (mass/v olume) 0.113 ng/mL <0.028 Capillary blood glucose measurement by g lucometer (mass/volume) - 05/16/19 20:44 Capillary blood glucose measurement by glucometer (mas s/volume) > mg/dL 70-110 Automated blood complete blood count (he mogram) panel - 05/17/19 06:03 Blood leukocytes automated count (number/volume) 8.4 10*3/uL 4.3-11.0 Blood erythrocytes automated count (number/volume) 3.71 10*6/uL 4.35-5.85 Venous blood hemoglobin measurement (mass/volume) 11.2 g/dL 11.5-16.0 Blood hematocrit (volume fraction) 34 % 35-52 Automated erythrocyte mean corpuscular volume 93 [ foz_us] 80-99 Automated erythrocyte mean corpuscular h emoglobin (mass per erythrocyte) 30 pg 25-34 Automated erythrocyte mean corpuscular h emoglobin concentration measurement (mass/volume) 33 g/dL 32-36 Automated erythrocyte distribution width ratio 14. 0 % 10.0- 14.5 Automated blood platelet count (count/volume) 119 10*3/uL 130-400 Automated blood platelet mean volume measurement 10.4 [foz_us] 7.4-10.4 Whole blood basic metabolic panel - 05/07 06:03 Serum or plasma sodium measurement (moles/volume) 137 mmol/L 135-145 Serum or plasma potassium measurement (moles/volume) 4.9 mmol/L 3.6-5.0 Serum or plasma chloride measurement (moles/volume) 103 mmol/L 98-107 Carbon dioxide 24 mmol/L 21-32 Serum or plasma anion gap determination (moles/volume) 10 mmol/L 5-14 Serum or plasma urea nitrogen measurement (mass/volume ) 35 mg/dL 7-18 Serum or plasma creatinine measurement (mass/volume) 1.83 mg/dL 0.60-1.30 Serum or plasma urea nitrogen/creatinine mass ratio 19 NRG Serum or plasma creatinine measurement w ith calculation of estimated glomerular filtration rate 28 NRG Serum or plasma glucose measurement (mass/volume) 356 mg/dL 70-105 Serum or plasma calcium measurement (mass/volume) 8.9 mg/dL 8.5-10.1 Lipid 1996 panel - 05/17/19 06:03 Serum or plasma triglyceride measurement (mass/volume) 172 mg/dL <150 Serum or plasma cholesterol measurement (mass/volume) 141 mg/dL < 200 Serum or plasma cholesterol in HDL measurement (mass/v olume) 30 mg/dL 40-60 Cholesterol in LDL [mass/volume] in serum or plasma by direct assay 92 mg/dL 1-129 Serum or plasma cholesterol in VLDL measurement (mass/ volume) 34 mg/dL 5-40 Capillary blood glucose measurement by g lucometer (mass/volume) - 05/17/19 06:07 Capillary blood glucose measurement by glucometer (mas s/volume) 329 mg/dL 70-110 Capillary blood glucose measurement by g lucometer (mass/volume) - 05/17/19 11:41 Capillary blood glucose measurement by glucometer (mas s/volume) 155 mg/dL 70-110 Capillary blood glucose measurement by g lucometer (mass/volume) - 05/17/19 16:50 Capillary blood glucose measurement by glucometer (mas s/volume) 200 mg/dL 70-110 Activated partial thromboplastin time (a PTT) in platelet poor plasma bycoagulation assay - 05/17/19 16:51 Activated partial thromboplastin time (a PTT) in platelet poor plasma bycoagulation assay 35 s 24-35 Capillary blood glucose measurement by g lucometer (mass/volume) - 05/17/19 22:14 Capillary blood glucose measurement by glucometer (mas s/volume) 171 mg/dL 70-110 Complete blood count (CBC) with automate d white blood cell (WBC) differential - 05/18/19 02:46 Blood leukocytes automated count (number/volume) 6.8 10*3/uL 4.3-11.0 Blood erythrocytes automated count (number/volume) 3.73 10*6/uL 4.35-5.85 Venous blood hemoglobin measurement (mass/volume) 11.4 g/dL 11.5-16.0 Blood hematocrit (volume fraction) 36 % 35-52 Automated erythrocyte mean corpuscular volume 95 [ foz_us] 80-99 Automated erythrocyte mean corpuscular h emoglobin (mass per erythrocyte) 31 pg 25-34 Automated erythrocyte mean corpuscular h emoglobin concentration measurement (mass/volume) 32 g/dL 32-36 Automated erythrocyte distribution width ratio 14. 2 % 10.0- 14.5 Automated blood platelet count (count/volume) 109 10*3/uL 130-400 Automated blood platelet mean volume measurement 10.6 [foz_us] 7.4-10.4 Automated blood neutrophils/100 leukocytes 78 % 42-75 Automated blood lymphocytes/100 leukocytes 13 % 12-44 Blood monocytes/100 leukocytes 7 % 0-12 Automated blood eosinophils/100 leukocytes 2 % 0-10 Automated blood basophils/100 leukocytes 0 % 0-10 Blood neutrophils automated count (number/volume) 5.3 10*3 1.8-7.8 Blood lymphocytes automated count (number/volume) 0.9 10*3 1.0-4.0 Blood monocytes automated count (number/volume) 0. 5 10*3 0.0-1.0 Automated eosinophil count 0.1 10*3/uL 0 .0-0.3 Automated blood basophil count (count/volume) 0.0 10*3/uL 0.0-0.1 Whole blood basic metabolic panel - 05/07 03/28 02:46 Serum or plasma sodium measurement (moles/volume) 141 mmol/L 135-145 Serum or plasma potassium measurement (moles/volume) 4.2 mmol/L 3.6-5.0 Serum or plasma chloride measurement (moles/volume) 106 mmol/L 98-107 Carbon dioxide 24 mmol/L 21-32 Serum or plasma anion gap determination (moles/volume) 11 mmol/L 5-14 Serum or plasma urea nitrogen measurement (mass/volume ) 31 mg/dL 7-18 Serum or plasma creatinine measurement (mass/volume) 1.46 mg/dL 0.60-1.30 Serum or plasma urea nitrogen/creatinine mass ratio 21 NRG Serum or plasma creatinine measurement w ith calculation of estimated glomerular filtration rate 36 NRG Serum or plasma glucose measurement (mass/volume) 121 mg/dL 70-105 Serum or plasma calcium measurement (mass/volume) 8.7 mg/dL 8.5-10.1 Serum or plasma phosphate measurement (m ass/volume) - 05/18/19 02:46 Serum or plasma phosphate measurement (mass/volume) 4.4 mg/dL 2.3-4.7 Magnesium - 05/18/19 02:46 Magnesium 2.3 mg/dL 1.6-2.4 Encounters ACCT No. Visit Date/Time Discharge Status Pt. Type Provider Facility Loc./Unit Complaint [id number] 07/28/2018 01:47:00 13:50:00 DIS Outpatient JOSE INGRAM, KONRAD Dorsey [facility] ICU NSTEMI [id number] 06/21/2018 14:44:00 23:59:59 CLS Outpatient TRICIA CORDON MD, HENRIETTA Miles [facility] LAB FS CHRONIC KIDNEY DIESEASE [id number] 06/08/2018 14:25:00 15:50:00 DIS Emergency JONO RAINES MD [facility] ER FS VOMITING; DIARRHEA; SOB [id number] 02/01/2018 03:07:00 018 15:11:00 DIS Inpatient JOSE INGRAM, KONRAD Dorsey [facility] ICU NON STEMI [id number] 05/16/2019 12:32:[address] Inpatient FREDRICK INGRAM FACC, JOSE MIGUEL JOSEPH CCDS [facility] CP COPD EXAC HYPERGLYCEM IA ELEV BNP
--- OUTSIDE RECORDS SUMMARY | 2019-05-18 21:57 | XMS REPORT | Continuity of Care Document ---
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 4 SNF (CURRENT) USE OF INSULIN 06/11/2018 JONO RAINES [...] 06/11/2018 JONO RAINES MD Ot Z79. 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 06/23/2018 TRICIA CORDON MD, HENRIETTA M Ot I12.9 HYPERTENSIVE CHRONIC KIDNEY DISEASE W ST 06/23/2018 TRICIA CORDON MD, HENRIETTA M Ot N18.3 CHRONIC KIDNEY DISEASE, STAGE 3 (MODERAT 06/24/2018 TRICIA CORDON MD, HENRIETTA M Ot E11.22 TYPE 2 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 06/24/2018 TRICIA CORDON MD, HENRIETTA M Ot I12.9 HYPERTENSIVE CHRONIC KIDNEY DISEASE W ST 06/24/2018 TRICIA CORDON MD, HENRIETTA M Ot N18.3 CHRONIC KIDNEY DISEASE, STAGE 3 (MODERAT 07/27/2018 TRICIA CORDON MD, HENRIETTA M Ot E11.22 TYPE 2 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 07/27/2018 TRICIA CORDON MD, HENRIETTA M Ot I12.9 HYPERTENSIVE CHRONIC KIDNEY DISEASE W ST 07/27/2018 TRICIA CORDON MD, HENRIETTA M Ot N18.3 CHRONIC KIDNEY DISEASE, STAGE 3 (MODERAT 07/28/2018 TRICIA CORDON MD, HENRIETTA M Ot E11.22 TYPE 2 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 07/28/2018 TRICIA CORDON MD, HENRIETTA M Ot [...] MD Ot I25.10 ATHSCL HEART DISEASE OF I[place] CORONARY 07/28/2018 KONRAD GARCIA MD, Ot I25 [...] 07/28/2018 KONRAD GARCIA MD Ot Z79 .4 REPRESENTATIVE GOVERNMENT RELATIONS (CURRENT) USE OF INSULIN 07/28/2018 KONRAD GARCIA [...] MD, Ot I25.10 ATHSCL HEART DISEASE OF [place] CORONARY 07/29/2018 KONRAD GARCIA MD Ot I25 [...] 07/29/2018 KONRAD GARCIA MD, Ot Z79 .4 REPRESENTATIVE GOVERNMENT RELATIONS (CURRENT) USE OF INSULIN 07/29/2018 KONRAD GARCIA MD, Ot Z95 .5 PRESENCE OF CORONARY ANGIOPLASTY IMPLANT Procedures Code Description Performed By Per formed On [id number] RE SPIRATORY VENTILATION, 24- 96 CONSECUTI 02/01/[id number] ASURE OF CARDIAC SAMPL PRESSURE, L H 02/02/2018 [id number] FL UOROSCOPY OF MULT COR ART USING L OSM 02/02/2018 [id number] FL UOROSCOPY OF LEFT HEART USING LOW OSMO 02/02/2018 [id number] FL UOROSCOPY OF A[place]A, BI LE ART [...] 02/04/18 11 :05 NRG Bacterial sputum culture [id number] NRG RML Sensitivity Panel - 02/01/18 16:15 [...] Status Pt. Type Provider Facility Loc./Unit Complaint [id number] 05/16/2019 12:32:00 13:30:00 DIS Inpatient FREDRICK INGRAM FACC, JOSE MIGUEL JOSEPH CCD S [facility] ICU CP COPD EXAC HYPERGLYCEMIA ELEV BNP [id number] 07/28/2018 01:47:00 13:50:00 DIS Outpatient KONRAD GARCIA MD [facility] ICU NSTEMI [id number] 06/21/2018 14:44:00 23:59:59 CLS Outpatient TRICIA CORDON MD, HENRIETTA Miles [facility] LAB FS CHRONIC KIDNEY DIESEASE [id number] 06/08/2018 14:25:00 019 15:50:00 DIS Emergency YANNA INGRAM, JONO Decker [facility] ER FS VOMITING; DIARRHEA; SOB [id number] 02/01/2018 03:07:00 018 15:11:00 DIS Inpatient JOSE INGRAM, KONRAD Dorsey [facility] ICU NON STEMI
== END 2019-05-18 13:30 | disposition home or self-care (01) | DRG 281 ==
LOC: EDUNIT# 09:32 → ER FS 09:34 → OBSVTOIN 12:32 → 4TH 12:32 → ICU 05-17 15:27
PROVIDERS: ADMIT Family Medicine; ATTEND Internal Medicine Cardiovascular Disease
DX: I21.4 Non-ST elevation (NSTEMI) myocardial infarction (principal); I25.10 Atherosclerotic heart disease of native coronary artery without angina pectoris; I25.82 Chronic total occlusion of coronary artery; J44.1 Chronic obstructive pulmonary disease with (acute) exacerbation; E11.65 Type 2 diabetes mellitus with hyperglycemia; E11.40 Type 2 diabetes mellitus with diabetic neuropathy, unspecified; I50.22 Chronic systolic (congestive) heart failure; N18.3 Chronic kidney disease, stage 3 (moderate); F17.210 Nicotine dependence, cigarettes, uncomplicated; I70.203 Unspecified atherosclerosis of native arteries of extremities, bilateral legs; K21.9 Gastro-esophageal reflux disease without esophagitis; E78.5 Hyperlipidemia, unspecified; E03.9 Hypothyroidism, unspecified; L40.9 Psoriasis, unspecified; Z95.5 Presence of coronary angioplasty implant and graft; Z90.710 Acquired absence of both cervix and uterus
CPT/HCPCS: 36415; 71045; 80048; 80053; 80061; 82962; 83735; 83880; 84100; 84484; 85025; 85027; 85610; 85730; 87081; 93005; 93041; 93306; 93458; 94640; 94761

== ENCOUNTER 2019-06-14 22:54 | Emergency (ER) | payer SELFPAY ==
[~2019-06-14] VITALS: Ht 157.5 cm; Wt 75.0 kg
[~2019-06-14 22:54] MED LIST changes: +CLOP75TA28 PO; +DOXA1TAB2 PO; +GABA-488 PO; +INSU100V16 SC; +INSU100V5 SQ
--- NOTE | 2019-06-14 23:13 | ED Cough/URI ---
General Stated Complaint: HARD TIME BREATHING Source: patient, RN notes reviewed History of Present Illness Date Seen by Provider: Jun 14, 2019 Time Seen by Provider: 23:10 Initial Comments This patient is a 64-year-old female who presents to the emergency department complaining of cough shortness of breath. And chest pain with cough. Patient has a long history of COPD and had a episode of pneumonia that required admission and [facility] the end of April. Patient states she still a heavy smoker. Pulse ox on room air 93%. Patient denies fever. Patient also complains of left knee swelling has been going on for months. Pain in left knee. We will do medical evaluation treatment is needed Timing/Duration: this afternoon Severity/Quality: moderate Prior Episodes/Possible Cause: frequent episodes Modifying Factors: Worse With Activity, Worse With Albuterol Inhaler, Worse With Albuterol Nebulizer, Worse With Antibiotics, Worse With Coughing, Worse With Lying Down, Worse With Oxygen, Worse With Rest, Worse With Other Associated Symptoms: chest pain/soreness, cough, shortness of breath Allergies and Home Medications Allergies Uncoded Allergies: Beta bernard (Adverse Reaction, Unknown, 2.4 second pause (07/2018), 05/16/19) Home Medications Amlodipine Besylate 10 Mg Tablet, 10 MG PO DAILY, (Reported) Aspirin 81 Mg Tablet.dr, 81 MG PO DAILY, (Reported) Atorvastatin Calcium 40 Mg Tablet, 40 MG PO HS, (Reported) Bumetanide 1 Mg Tablet, 1 MG PO DAILY PRN for SHORTNESS OF BREATH, (Reported) Clopidogrel Bisulfate 75 Mg Tablet, 75 MG PO DAILY Prescribed by: ANN NIX on 05/18/19954 Doxazosin Mesylate 1 Mg Tablet, 1 MG PO BID, (Reported) Gabapentin 300 Mg Capsule, 300 MG PO BID, (Reported) Insulin Aspart 100 Unit/1 Ml Susp, 10 UNIT SC WM Prescribed by: ANN NXI on 05/18/19954 Insulin Determir 1,000 Units/10 Ml Soln, 40 UNIT SQ HS Prescribed by: ANN NIX on 05/18/19954 Isosorbide Mononitrate 60 Mg Tab, 60 MG PO DAILY, (Reported) Levothyroxine Sodium 88 Mcg Tablet, 88 MCG PO DAILY, (Reported) Lisinopril 30 Mg Tablet, 30 MG PO DAILY, (Reported) Nitroglycerin 0.4 Mg Tab.subl, 0.4 MG SL UD PRN for CHEST PAIN, (Reported) [place] 3 Polyunsat Fatty Acids 1,000 Mg Cap, 1,000 MG PO DAILY, (Reported) Patient Home Medication List Home Medication List Reviewed: Yes Review of Systems Review of Systems Constitutional: No no symptoms reported; see HPI; No chills, No diaphoresis, No dizziness, No fever, No malaise, No weakness, No weight gain, No weight loss, No other Respiratory: see HPI, cough, dyspnea on exertion Cardiovascular: see HPI Gastrointestinal: No RUQ, No LUQ, No RLQ, No LLQ, No no symptoms reported, No see HPI, No abdominal pain, No constipation, No diarrhea, No dysphagia, No hematemesis, No heartburn, No jaundice, No loss of appetite, No melena, No nausea, No vomiting, No other Genitourinary: No no symptoms reported, No see HPI, No decreased output, No discharge, No dysuria, No frequency, No hematuria, No hesitancy, No incontinence, No nocturia, No pain, No other Musculoskeletal: No no symptoms reported, No see HPI, No back pain, No gout, No joint pain, No joint swelling, No muscle pain, No muscle stiffness, No muscle cramps, No muscle twitching, No muscle weakness, No neck pain, No other Skin: No no symptoms reported, No see HPI, No change in color, No change in hair/nails, No dryness, No hx of skin cancer, No lesions, No lumps, No pruritus, No rash, No other Past Uwezgiq-Iytlaf-Jtmngv Hx Patient Social History Type Used: Cigarettes 2nd Hand Smoke Exposure: No Recent Hopitalizations: No Immunizations Up To Date Date of Pneumonia Vaccine: Mar 09, 2016 Date of Influenza Vaccine: Dec 07, 2017 Seasonal Allergies Seasonal Allergies: No Past Medical History Surgeries: Yes Coronary Stent, Hysterectomy Respiratory: No Cardiac: Yes Coronary Artery Disease, Heart Attack, Peripheral Vascular Neurological: No Neuropathy Sexually Transmitted Disease: No HIV/AIDS: No Genitourinary: No Gastrointestinal: Yes Gastroesophageal Reflux Musculoskeletal: No Endocrine: Yes Diabetes, Non-Insulin dep HEENT: No Cancer: No Psychosocial: No Integumentary: No Psoriasis Blood Disorders: No Adverse Reaction/Blood Tranf: No Family Medical History No Pertinent Family Hx Physical Exam Vital Signs - First Documented 06/14/19 23:25 Temp 37.1 Pulse 87 Resp 23 B/P (MAP) 174/68 (103) Pulse Ox 95 O2 Delivery Nasal Cannula O2 Flow Rate 2.00 Capillary Refill : Height: 5'2.00" Weight: 179lbs. 5.0oz. 81.473685dz; 36.64 BMI Method:Stated General Appearance: WD/WN, no apparent distress HEENT: PERRL/EOMI, normal ENT inspection, TMs normal, pharynx normal Neck: non-tender, full range of motion, supple, normal inspection, carotid bruit Respiratory: chest non-tender, lungs clear, no respiratory distress, no accessory muscle use, respiratory distress, other (coarse breath sounds) Cardiovascular: normal peripheral pulses, regular rate, rhythm, no edema, no gallop, no JVD, no murmur Gastrointestinal: normal bowel sounds, non tender, soft, no organomegaly, no pulsatile mass Extremities: normal range of motion, non-tender, normal inspection, no pedal edema, no calf tenderness, normal capillary refill, swelling (left knee swelling) Skin: normal color, warm/dry Procedures/Interventions Date of ETT Placement: Feb 01, 2018 Time of ETT Placement: 1613 Progress/Results/Core Measures Suspected Sepsis SIRS Temperature: Pulse: Respiratory Rate: Laboratory Tests 06/14/19 23:18: White Blood Count 5.4 Blood Pressure / Mean: Laboratory Tests 06/14/19 23:18: Creatinine 1.75H, Platelet Count 106L, Total Bilirubin 0.4 Results/Orders Lab Results Laboratory Tests Test 06/14/19 23:18 06/14/19 23:51 Range/Units White Blood Count 5.4 4.3-11.0 10^3/uL Red Blood Count 3.48 L 4.35-5.85 10^6/uL Hemoglobin 10.5 L 11.5-16.0 G/DL Hematocrit 33 L 35-52 % Mean Corpuscular Volume 94 80-99 FL Mean Corpuscular Hemoglobin 30 25-34 PG Mean Corpuscular Hemoglobin Concent 32 32-36 G/DL Red Cell Distribution Width 14.0 10.0-14.5 % Platelet Count 106 L 130-400 10^3/uL Mean Platelet Volume 10.8 H 7.4-10.4 FL Neutrophils (%) (Auto) 75 42-75 % Lymphocytes (%) (Auto) 14 12-44 % Monocytes (%) (Auto) 7 0-12 % Eosinophils (%) (Auto) 3 0-10 % Basophils (%) (Auto) 0 0-10 % Neutrophils # (Auto) 4.1 1.8-7.8 X 10^3 Lymphocytes # (Auto) 0.8 L 1.0-4.0 X 10^3 Monocytes # (Auto) 0.4 0.0-1.0 X 10^3 Eosinophils # (Auto) 0.2 0.0-0.3 10^3/uL Basophils # (Auto) 0.0 0.0-0.1 10^3/uL Sodium Level 142 135-145 MMOL/L Potassium Level 4.4 3.6-5.0 MMOL/L Chloride Level 104 98-107 MMOL/L Carbon Dioxide Level 24 21-32 MMOL/L Anion Gap 14 5-14 MMOL/L Blood Urea Nitrogen 31 H 7-18 MG/DL Creatinine 1.75 H 0.60-1.30 MG/DL Estimat Glomerular Filtration Rate 29 BUN/Creatinine Ratio 18 Glucose Level 255 H 70-105 MG/DL Calcium Level 8.6 8.5-10.1 MG/DL Corrected Calcium 8.8 8.5-10.1 MG/DL Total Bilirubin 0.4 0.1-1.0 MG/DL Aspartate Amino Transf (AST/SGOT) 17 5-34 U/L Alanine Aminotransferase (ALT/SGPT) 16 0-55 U/L Alkaline Phosphatase 70 40-136 U/L Troponin I < 0.30 <0.30 NG/ML Total Protein 6.7 6.4-8.2 GM/DL Albumin 3.7 3.2-4.5 GM/DL Group A Streptococcus Screen NEGATIVE NEGATIVE Blood Gas Puncture Site RT RAD Blood Gas Patient Temperature 37.0 Arterial Blood pH 7.39 7.37-7.43 Arterial Blood Partial Pressure CO2 47 H 35-45 MMHG Arterial Blood Partial Pressure O2 90 79-93 MMHG Arterial Blood HCO3 29 H 23-27 MMOL/L Arterial Blood Total CO2 29.9 21.0-31.0 MMOL/L Arterial Blood Oxygen Saturation 97 94-100 % Arterial Blood Base Excess 2.8 H -2.5-2.5 MMOL/L [place] Test YES-POS Blood Gas Ventilator Setting NO Blood Gas Inspired Oxygen 2L Micro Results Microbiology 06/14/19 Influenza Types A,B Antigen (WILLIAM) - Final, Complete My Orders Orders - CAROLINA ALMEIDA MD Comprehensive Metabolic Panel (06/14/19 23:07) Ed Iv/Invasive Line Start (06/14/19 23:07) Cbc With Automated Diff (06/14/19 23:07) Influenza A And B Antigens (06/14/19 23:07) Rapid Strep A Screen (06/14/19 23:07) Chest 1 View Ap/Pa Only (06/14/19 23:07) Ekg Tracing (06/14/19 23:07) Blood Culture (06/14/19 23:07) Knee 2 View Left (06/14/19 23:09) Troponin I Fs (06/14/19 23:13) Arterial Blood Gas (06/14/19 23:14) Vital Signs/I&O 06/14/19 23:25 Temp 37.1 Pulse 87 Resp 23 B/P (MAP) 174/68 (103) Pulse Ox 95 O2 Delivery Nasal Cannula O2 Flow Rate 2.00 Capillary Refill : Progress Note : Time: 00:10 Progress Note Negative evaluation the emergency department. Patient has long history of COPD no fever. Patient states she does normally have a pro-air inhaler at home but has not had one this month. The swelling has been going on for months and she seen her PCP for this chronically. Discussed with the patient patient has good O2 sats on room air. Left 99 on nasal cannula. Patient was 94 without nasal cannula. We did discuss living with patient about options. We will place the patient on a Z-Bandar patient will also be placed on a Medrol Dosepak and we will refill her Ventolin multidose inhaler. Patient has long history of atrial fibrillation she's a follow-up with her primary care physician. Patient was discharged home per her request. ECG Initial ECG Impression Date: Jun 14, 2019 Initial ECG Impression Time: 23:09 Initial ECG Rate: 91 Initial ECG Rhythm: A Fib/Flutter Initial ECG Intervals: Normal Initial ECG Impression: Normal, Nonspecific Changes Comment Atrial fibrillation with a heart rate of 91. Nonspecific EKG changes. EKG : Rhythm: A Fib/Flutter ECG Impression: Atrial Fibrillation Departure Impression Primary Impression: Dyspnea Additional Impressions: COPD (chronic obstructive pulmonary disease) Chronic atrial fibrillation Disposition: HOME, SELF-CARE Condition: Stable Departure-Patient Inst. Referrals: SVITLANA VALLEJO MD (PCP/Family) Primary Care Physician Patient Instructions: Shortness of Breath (Dyspnea) (DC), Inhalers, COPD Including Emphysema (DC) Add. Discharge Instructions: Encourage by mouth fluids. Continue all medications as instructed. Follow-up with your PCP in 2-3 days. Chronic conditions. We will refill her pro-air inhaler take as instructed. Patient be placed on a Z-Bandar and a Medrol dose inhaler. Monitor blood sugars closely due to the steroid Dosepak. Follow up with PCP as instructed. Scripts Albuterol Sulfate (Proventil Hfa) 6.7 Gm Hfa.aer.ad 2 PUFF INH Q6H for SHORTNESS OF BREATH, #1 EACH 1 Refill Prov: CAROLINA ALMEIDA MD 06/15/19 Methylprednisolone (Methylprednisolone Dose Pack) 4 Mg Tablet 4 MG PO UD for 6 Days, #21 TAB FOLLOW DOSE PACK INSTRUCTIONS Prov: CAROLINA ALMEIDA MD 06/15/19 Azithromycin (Azithromycin) 250 Mg Tablet 250 MG PO UD, #6 TAB TAKE 2 TABLETS ON DAY ONE THEN TAKE 1 TABLET DAILY FOR FOUR MORE DAYS Prov: CAROLINA ALMEIDA MD 06/15/19 CAROLINA ALMEIDA MD Jun 14, 2019 23:12
[2019-06-14 23:32] LABS: BASOPHILS % (AUTO) 0 % (0-10); EOSINOPHILS % (AUTO) 3 % (0-10); HEMATOCRIT 33 % (35-52); HEMOGLOBIN 10.5 G/DL (11.5-16.0); LYMPHOCYTES # (AUTO) 0.8 X 10^3 (1.0-4.0); LYMPHOCYTES % (AUTO) 14 % (12-44); MEAN CORPUSCULAR HEMOGLOBIN 30 PG (25-34); MEAN CORPUSCULAR HGB CONC 32 G/DL (32-36); MEAN CORPUSCULAR VOLUME 94 FL (80-99); MEAN PLATELET VOLUME 10.8 FL (7.4-10.4); MONOCYTES # (AUTO) 0.4 X 10^3 (0.0-1.0); MONOCYTES % (AUTO) 7 % (0-12); NEUTROPHILS # (AUTO) 4.1 X 10^3 (1.8-7.8); NEUTROPHILS % (AUTO) 75 % (42-75); PLATELET COUNT 106 10^3/uL (130-400); WHITE BLOOD COUNT 5.4 10^3/uL (4.3-11.0)
[2019-06-14 23:33] LABS: EOSINOPHILS # (AUTO) 0.2 10^3/uL (0.0-0.3)
--- OUTSIDE RECORDS SUMMARY | 2019-06-14 23:48 | XMS REPORT | Continuity of Care Document ---
Author Organization Unknown Address Unknown Phone Unavailable Allergies Active Description Code Type Severity Reaction Onset Reported/Identified Relationship to Patient Clinical Status Yes No Known Drug Allergies [id number] Drug Allergy Unknown N/A 07/27/2018 Yes Beta [...] MD, Ot I25.10 ATHSCL HEART DISEASE OF [place] CORONARY 02/03/2018 KONRAD GARCIA MD, Ot I25 .2 OLD MYOCARDIAL INFARCTION 02/03/2018 KONRAD GARCIA MD, Ot I50.31 ACUTE DIASTOLIC (CONGESTIVE) HEART FAILU 02/03/2018 KONRAD GARCIA MD, Ot I50 .9 HEART FAILURE, UNSPECIFIED 02/03/2018 KONRAD GARCIA MD, Ot I70 .0 ATHEROSCLEROSIS OF [place] 02/03/2018 KONRAD GARCIA MD, Ot I70.223 ATHSCL [place] ARTERIES OF EXTRM W REST P 02/03/2018 KONRAD GARCIA MD, Ot I70 .8 ATHEROSCLEROSIS OF OTHER ARTERIES 02/03/2018 KONRAD AGRCIA MD, Ot I70.92 CHRONIC TOTAL OCCLUSION OF [...] 06/08/2018 JONO RAINES MD Ot Z79. 4 [facility] (CURRENT) USE OF INSULIN 06/11/2018 JONO RAINES [...] 06/11/2018 JONO RAINES MD Ot Z79. 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 06/23/2018 TRICIA CORDON MD, HENRIETTA M Ot I12.9 HYPERTENSIVE CHRONIC KIDNEY DISEASE W ST 06/23/2018 TRICIA CORDON MD, HENRIETTA M Ot N18.3 CHRONIC KIDNEY DISEASE, STAGE 3 (MODERAT 06/24/2018 TRICIA CORDON MD, HENRIETTA M Ot 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 06/24/2018 TRICIA CORDON MD, HENRIETTA M Ot I12.9 HYPERTENSIVE CHRONIC KIDNEY DISEASE W ST 06/24/2018 TRICIA CORDON MD, HENRIETTA M Ot N18.3 CHRONIC KIDNEY DISEASE, STAGE 3 (MODERAT 07/27/2018 TRICIA CORDON MD, HENRIETTA M Ot 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 07/27/2018 TRICIA CORDON MD, HENRIETTA M Ot I12.9 HYPERTENSIVE CHRONIC KIDNEY DISEASE W ST 07/27/2018 TRICIA CORDON MD, HENRIETTA M Ot N18.3 CHRONIC KIDNEY DISEASE, STAGE 3 (MODERAT 07/28/2018 TRICIA CORDON MD, HENRIETTA M Ot 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 07/28/2018 TRICIA CORDON MD, HENRIETTA M Ot [...] MD Ot I25.10 ATHSCL HEART DISEASE OF [place] CORONARY 07/28/2018 KONRAD GARCIA MD, Ot I25 .2 OLD MYOCARDIAL INFARCTION 07/28/2018 KONRAD GARCIA MD, Ot I73 .9 PERIPHERAL VASCULAR DISEASE, UNSPECIFIED 07/28/2018 KONRAD GACRIA MD, Ot J44 .9 CHRONIC OBSTRUCTIVE PULMONARY [...] 07/28/2018 KONRAD GARCIA MD Ot Z79 .4 [facility]RI[facility] (CURRENT) USE OF INSULIN 07/28/2018 KONRAD GARCIA [...] MD, Ot I25.10 ATHSCL HEART DISEASE OF [place] CORONARY 07/29/2018 KONRAD GARCIA MD Ot I25 .2 OLD MYOCARDIAL INFARCTION 07/29/2018 KONRAD GARCIA MD Ot I73 .9 PERIPHERAL VASCULAR DISEASE, UNSPECIFIED 07/29/2018 KONRAD GARCIA MD, Ot J44 .9 CHRONIC OBSTRUCTIVE PULMONARY DISEASE, U 07/29/2018 KONRAD GARCIA MD Ot K21 .9 GASTRO-ESOPHAGEAL REFLUX DISEASE WITHOUT 07/29/2018 KONRAD GARCIA MD Ot L40 .9 PSORIASIS, UNSPECIFIED 07/29/2018 KONRAD GARCIA MD Ot N18 .3 CHRONIC KIDNEY DISEASE, STAGE 3 (MODERAT 07/29/2018 KONRAD GARCIA MD Ot N28 .9 DISORDER OF KIDNEY AND URETER, UNSPECIFI 07/29/2018 KONRAD GARCIA MD Ot R00 .1 BRADYCARDIA, UNSPECIFIED 07/29/2018 KONRAD GARCIA MD Ot R07.89 OTHER CHEST PAIN 07/29/2018 KONRAD GARCIA MD, Ot 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 07/29/2018 KONRAD GARCIA MD Ot Z79 .4 PODIATRIST ORTHOPEDIC (CURRENT) USE OF INSULIN 07/29/2018 KONRAD GARCIA MD Ot Z95 .5 PRESENCE OF CORONARY ANGIOPLASTY IMPLANT 05/16/2019 FREDRICK INGRAM FACC, JOSE MIGUEL FACP CCDS Ot E03.9 HYPOTHYROIDISM, UNSPECIFIED 05/16/2019 FREDRICK INGRAM FACC, JOSE MIGUEL FACP CCDS Ot E11.40 TYPE 2 DIABETES MELLITUS WITH DIABETIC N 05/16/2019 FREDRICK INGRAM FACC, ALI FACP CCDS Ot E11.65 TYPE 2 DIABETES MELLITUS WITH HYPERGLYCE 05/16/2019 FREDRICK INGRAM FACC, JOSE MIGUEL FACP CCDS Ot E78.5 HYPERLIPIDEMIA, UNSPECIFIED 05/16/2019 FREDRICK INGRAM FACC, ALI FACP CCDS Ot F17.210 NICOTINE DEPENDENCE, CIGARETTES, UNCOMPL 05/16/2019 FREDRICK INGRAM FACC, ALI FACP CCDS Ot I21.4 NON-ST ELEVATION (NSTEMI) MYOCARDIAL INF 05/16/2019 FREDRICK INGRAM FACC, JOSE MIGUEL FACP CCDS Ot I25.10 ATHSCL HEART DISEASE OF [place] CORONARY 05/16/2019 FREDRICK INGRAM FACC, ALI FACP CCDS Ot I25.82 CHRONIC TOTAL OCCLUSION OF CORONARY TU 05/16/2019 FREDRICK INGRAM FACC, ALI FACP CCDS Ot I50.22 CHRONIC SYSTOLIC (CONGESTIVE) HEART FAIL 05/16/2019 FREDRICK INGRAM FACC, ALI FACP CCDS Ot I70.203 UNSP ATHSCL [place] ARTERIES OF EXTREMITI 05/16/2019 FREDRICK INGRAM FACC, ALI FACP CCDS Ot J44.1 CHRONIC OBSTRUCTIVE PULMONARY DISEASE W 05/16/2019 FREDRICK INGRAM [facility], ALI FACP CCDS Ot K21.9 GASTRO-ESOPHAGEAL REFLUX DISEASE WITHOUT 05/16/2019 FREDRICK INGRAM [facility], ALI FACP CCDS Ot L40.9 PSORIASIS, UNSPECIFIED 05/16/2019 FREDRICK INGRAM [facility], ALI FACP CCDS Ot N18.3 CHRONIC KIDNEY DISEASE, STAGE 3 (MODERAT 05/16/2019 FREDRICK INGRAM [facility], ALI FACP CCDS Ot Z90.710 ACQUIRED ABSENCE OF BOTH CERVIX AND UTER 05/16/2019 FREDRICK INGRAM [facility], ALI FACP CCDS Ot Z95.5 PRESENCE OF CORONARY ANGIOPLASTY IMPLANT 05/18/2019 FREDRICK INGRAM [facility], ALI FACP CCDS Ot E03.9 HYPOTHYROIDISM, UNSPECIFIED 05/18/2019 FREDRICK INGRAM [facility], ALI FACP CCDS Ot E11.40 TYPE 2 DIABETES MELLITUS WITH DIABETIC N 05/18/2019 FREDRICK INGRAM [facility], ALI FACP CCDS Ot E11.65 TYPE 2 DIABETES MELLITUS WITH HYPERGLYCE 05/18/2019 FREDRICK INGRAM [facility], ALI FACP CCDS Ot E78.5 HYPERLIPIDEMIA, UNSPECIFIED 05/18/2019 FREDRICK INGRAM [facility], ALI FACP CCDS Ot F17.210 NICOTINE DEPENDENCE, CIGARETTES, UNCOMPL 05/18/2019 FREDRICK INGRAM [facility], ALI FACP CCDS Ot I21.4 NON-ST ELEVATION (NSTEMI) MYOCARDIAL INF 05/18/2019 FREDRICK INGRAM [facility], ALI FACP CCDS Ot I25.10 ATHSCL HEART DISEASE OF [place] CORONARY 05/18/2019 FREDRICK INGRAM [facility], ALI FACP CCDS Ot I25.82 CHRONIC TOTAL OCCLUSION OF CORONARY TU 05/18/2019 FREDRICK INGRAM [facility], ALI FACP CCDS Ot I50.22 CHRONIC SYSTOLIC (CONGESTIVE) HEART FAIL 05/18/2019 FREDRICK INGRAM [facility], ALI FACP CCDS Ot I70.203 UNSP ATHSCL [place] ARTERIES OF EXTREMITI 05/18/2019 FREDRICK INGRAM [facility], ALI FACP CCDS Ot J44.1 CHRONIC OBSTRUCTIVE PULMONARY DISEASE W 05/18/2019 FREDRICK INGRAM [facility], ALI FACP CCDS Ot K21.9 GASTRO-ESOPHAGEAL REFLUX DISEASE WITHOUT 05/18/2019 FREDRICK INGRAM [facility], ALI FACP CCDS Ot L40.9 PSORIASIS, UNSPECIFIED 05/18/2019 FREDRICK INGRAM [facility], ALI FACP CCDS Ot N18.3 CHRONIC KIDNEY DISEASE, STAGE 3 (MODERAT 05/18/2019 FREDRICK INGRAM [facility], ALI FACP CCDS Ot Z90.710 ACQUIRED ABSENCE OF BOTH CERVIX AND UTER 05/18/2019 FREDRICK INGRAM [facility], ALI FACP CCDS Ot Z95.5 PRESENCE OF CORONARY ANGIOPLASTY IMPLANT 06/02/2019 FREDRICK INGRAM [facility], ALI FACP CCDS Ot E03.9 HYPOTHYROIDISM, UNSPECIFIED 06/02/2019 FREDRICK MD [facility], ALI FACP CCDS Ot E11.40 TYPE 2 DIABETES MELLITUS WITH DIABETIC N 06/02/2019 FREDRICK INGRAM [facility], ALI FACP CCDS Ot E11.65 TYPE 2 DIABETES MELLITUS WITH HYPERGLYCE 06/02/2019 FREDRICK MD [facility], ALI FACP CCDS Ot E78.5 HYPERLIPIDEMIA, UNSPECIFIED 06/02/2019 FREDRICK INGRAM [facility], ALI FACP CCDS Ot F17.210 NICOTINE DEPENDENCE, CIGARETTES, UNCOMPL 06/02/2019 FREDRICK INGRAM [facility], ALI FACP CCDS Ot I21.4 NON-ST ELEVATION (NSTEMI) MYOCARDIAL INF 06/02/2019 FREDRICK INGRAM [facility], ALI FACP CCDS Ot I25.10 ATHSCL HEART DISEASE OF [place] CORONARY 06/02/2019 FREDRICK INGRAM [facility], ALI FACP CCDS Ot I25.82 CHRONIC TOTAL OCCLUSION OF CORONARY TU 06/02/2019 FREDRICK INGRAM [facility], ALI FACP CCDS Ot I50.22 CHRONIC SYSTOLIC (CONGESTIVE) HEART FAIL 06/02/2019 FREDRICK INGRAM [facility], ALI FACP CCDS Ot I70.203 UNSP ATHSCL [place] ARTERIES OF EXTREMITI 06/02/2019 FREDRICK INGRAM [facility], ALI FACP CCDS Ot J44.1 CHRONIC OBSTRUCTIVE PULMONARY DISEASE W 06/02/2019 FREDRICK INGRAM [facility], ALI FACP CCDS Ot K21.9 GASTRO-ESOPHAGEAL REFLUX DISEASE WITHOUT 06/02/2019 FREDRICK INGRAM [facility], ALI FACP CCDS Ot L40.9 PSORIASIS, UNSPECIFIED 06/02/2019 FREDRICK INGRAM [facility], ALI FACP CCDS Ot N18.3 CHRONIC KIDNEY DISEASE, STAGE 3 (MODERAT 06/02/2019 FREDRICK INGRAM [facility], ALI FACP CCDS Ot Z90.710 ACQUIRED ABSENCE OF BOTH CERVIX AND UTER 06/02/2019 FREDRICK INGRAM FACC, JOSE MIGUEL HAWKP CCDS Ot Z95.5 PRESENCE OF CORONARY ANGIOPLASTY IMPLANT Procedures Code Description Performed By Per formed On [id number] RE SPIRATORY VENTILATION, 24- 96 CONSECUTI 02/01/2018 [id number] ME ASURE OF CARDIAC SAMPL PRESSURE, L H 02/02/2018 [id number] FL UOROSCOPY OF MULT COR ART USING L OSM 02/02/2018 [id number] FL UOROSCOPY OF LEFT HEART USING LOW OSMO 02/02/2018 [id number] FL UOROSCOPY OF [place], BI LE ART USING L 02/02/2018 [id number] ME ASURE OF CARDIAC SAMPL PRESSURE, L H 05/17/2019 [id number] FL UOROSCOPY OF MULT COR ART USING L OSM 05/17/2019 Results Test Result Range Methicillin resistant Staphylococcus [...] 02/04/18 11 :05 NRG Bacterial sputum culture [id number] [facility] Sensitivity Panel - 02/01/18 16:15 Gentamicin susceptibility [...] - 05/18/19 02:46 Magnesium 2.3 mg/dL 1.6-2.4 Complete blood count (CBC) with automate d white blood cell (WBC) differential - 06/14/19 23:18 Blood leukocytes automated count (number/volume) 5.4 10*3/uL 4.3-11.0 Blood erythrocytes automated count (number/volume) 3.48 10*6/uL 4.35-5.85 Venous blood hemoglobin measurement (mass/volume) 10.5 g/dL 11.5-16.0 Blood hematocrit (volume fraction) 33 % 35-52 Automated erythrocyte mean corpuscular volume 94 [ foz_us] 80-99 Automated erythrocyte mean corpuscular h emoglobin (mass per erythrocyte) 30 pg 25-34 Automated erythrocyte mean corpuscular h emoglobin concentration measurement (mass/volume) 32 g/dL 32-36 Automated erythrocyte distribution width ratio 14. 0 % 10.0- 14.5 Automated blood platelet count (count/volume) 106 10*3/uL 130-400 Automated blood platelet mean volume measurement 10.8 [foz_us] 7.4-10.4 Automated blood neutrophils/100 leukocytes 75 % 42-75 Automated blood lymphocytes/100 leukocytes 14 % 12-44 Blood monocytes/100 leukocytes 7 % 0-12 Automated blood eosinophils/100 leukocytes 3 % 0-10 Automated blood basophils/100 leukocytes 0 % 0-10 Blood neutrophils automated count (number/volume) 4.1 10*3 1.8-7.8 Blood lymphocytes automated count (number/volume) 0.8 10*3 1.0-4.0 Blood monocytes automated count (number/volume) 0. 4 10*3 0.0-1.0 Automated eosinophil count 0.2 10*3/uL 0 .0-0.3 Automated blood basophil count (count/volume) 0.0 10*3/uL 0.0-0.1 Streptococcus pyogenes antigen detection - 06/14/19 23:18 Streptococcus pyogenes antigen detection NEGATIVE NEGATIVE Encounters ACCT No. Visit Date/Time Discharge Status Pt. Type Provider Facility Loc./Unit Complaint [id number] 05/16/2019 11:55:00 13:30:00 DIS Outpatient FREDRICK INGRAM FACC, JOSE MIGUEL HAWKP CC DS [facility] ICU CP COPD E XAC HYPERGLYCEMIA ELEV BNP [id number] 07/28/2018 01:47:00 13:50:00 DIS Outpatient KONRAD GARCIA MD [facility] ICU NSTEMI [id number] 06/21/2018 14:44:00 23:59:59 CLS Outpatient TRICIA CORDON MD, HENRIETTA Miles [facility] LAB FS CHRONIC KIDNEY DIESEASE [id number] 06/08/2018 14:25:00 15:50:00 DIS Emergency JONO RAINES MD [facility] ER FS VOMITING; DIARRHEA; SOB [id number] 02/01/2018 03:07:00 15:11:00 DIS Inpatient KONRAD GARCIA MD [facility] ICU NON STEMI [id number] 06/14/2019 23:33:00 Document Registration
[2019-06-14 23:57] LABS: CREATININE SERUM 1.75 MG/DL (0.60-1.30); POTASSIUM 4.4 MMOL/L (3.6-5.0)
[2019-06-14 23:58] LABS: ALBUMIN 3.7 GM/DL (3.2-4.5); BILIRUBIN,TOTAL 0.4 MG/DL (0.1-1.0); CALCIUM 8.6 MG/DL (8.5-10.1); TOTAL PROTEIN 6.7 GM/DL (6.4-8.2)
[2019-06-15 00:01] LABS: ABG BASE EXCESS 2.8 MMOL/L (-2.5-2.5); ABG OXYGEN SATURATION 97 % (94-100); ABG PCO2 47 MMHG (35-45); ABG PH 7.39 (7.37-7.43); ABG PO2 90 MMHG (79-93); ABG TCO2 29.9 MMOL/L (21.0-31.0); ALLENS TEST YES-POS; INSPIRED O2 2L; VENTILATOR NO
[2019-06-15] MEDS ORDERED: METH4TAB11 PO (00:15)
[2019-06-15] MEDS ORDERED: AZIT250T12 PO (00:15)
[2019-06-15] MEDS ORDERED: RT-ALBUINH INH (00:15)
[2019-06-15 00:23] VITALS: BP 162/71
--- NOTE | 2019-06-15 05:38 | Diagnostic Imaging Report ---
EXAMINATION: Left knee, 2 views INDICATION: Left knee pain. COMPARISON: None available. FINDINGS: No fracture or acute osseous abnormality. Bony alignment is maintained, without evidence of dislocation. Mild degenerative changes noted in the medial and patellofemoral compartments. Soft tissues are unremarkable. No large suprapatellar joint effusion. Vascular calcifications are noted. IMPRESSION: No acute fracture or dislocation. Dictated by: Dictated on workstation # [id number]
--- NOTE | 2019-06-15 05:42 | Diagnostic Imaging Report ---
EXAMINATION: AP upright portable chest INDICATION: Weakness and shortness of breath with exertion. COMPARISON: Multiple priors, most recent performed on 05/18/2019. FINDINGS: Low lung volumes are demonstrated. There is persistent central vascular congestion and streaky opacity in the perihilar regions similar in appearance to prior exam. No pneumothorax or large pleural effusion. There is moderate enlargement of the heart. Mediastinal contours are unchanged. No acute osseous abnormalities appreciated. IMPRESSION: Central vascular congestion and perihilar opacities likely reflect mild interstitial edema. There is unchanged cardiomegaly. There is no significant pleural effusion. Dictated by: Dictated on workstation # [id number]
== END 2019-06-15 00:23 | disposition home or self-care (01) ==
LOC: EDUNIT# 22:54 → ER FS 22:56
DX: J44.9 Chronic obstructive pulmonary disease, unspecified (principal); I48.20 Chronic atrial fibrillation, unspecified; I25.2 Old myocardial infarction; I25.10 Atherosclerotic heart disease of native coronary artery without angina pectoris; E11.40 Type 2 diabetes mellitus with diabetic neuropathy, unspecified; F17.200 Nicotine dependence, unspecified, uncomplicated; Z79.82 Long term (current) use of aspirin; Z79.02 Long term (current) use of antithrombotics/antiplatelets; Z79.4 Long term (current) use of insulin; Z95.5 Presence of coronary angioplasty implant and graft
CPT/HCPCS: 36415; 71045; 73560; 80053; 82805; 84484; 85025; 87040; 87430; 87804

== ENCOUNTER 2020-01-05 08:43 | Emergency (ER) | payer SELFPAY ==
[~2020-01-05] VITALS: Ht 157.5 cm; Wt 90.9 kg
[~2020-01-05 08:43] MED LIST changes: +AMLO-251 PO; -AMLO10TA7 PO; +APIX5TAB PO; +ASPI-1238 PO; -ASPI-983 PO; +AZIT250T12 PO; -CALC-6 PO; +CALC1TAB84 PO; +CLOP75TA69 PO; +GABA300C PO; +INSU100I29 SQ; +LISI40TA PO; +METH4TAB11 PO; +MULT-1136 PO; +RIVA20TA PO; +RT-ALBUINH INH
[2020-01-05 08:45] VITALS: BP 161/68
--- NOTE | 2020-01-05 09:05 | ED Lower Extremity ---
General Chief Complaint: Lower Extremity Stated Complaint: LT LEG PAIN; FELL A FEW DAYS AGO Source: patient Exam Limitations: no limitations History of Present Illness Date Seen by Provider: Jan 05, 2020 Time Seen by Provider: 08:55 Initial Comments 63-year-old female presents with pain of her left leg from a fall, out of bed one week ago. She hit her left leg on a piece of furniture. Since then she's had some pain and some swelling and now it's turning warm & red. Pain worse to the touch. Able to bear weight but with some discomfort. No knee swelling or lower leg swelling. Denies any chest pain, shortness of air or palpitations. Onset: last week Allergies and Home Medications Allergies Uncoded Allergies: Beta bernard (Adverse Reaction, Unknown, 2.4 second pause (07/2018), 05/16/19) Home Medications Albuterol Sulfate 6.7 Gm Hfa.aer.ad, 2 PUFF INH Q6H Prescribed by: CAROLINA ALMEIDA on 06/15/19 0015 Atorvastatin Calcium 40 Mg Tablet, 40 MG PO HS, (Reported) Cephalexin 500 Mg Tablet, 500 MG PO QID Prescribed by: HAM FERNÁNDEZ on 01/05/20 0906 Clopidogrel Bisulfate 75 Mg Tablet, 75 MG PO DAILY, (Reported) Gabapentin 300 Mg Capsule, 300 MG PO BID, (Reported) Insulin Detemir 100 Unit/1 Ml Insuln.pen, 30 UNIT SQ BID Prescribed by: DIANNA CARTWRIGHT on 09/27/19 1014 Insulin Lispro 100 Unit/1 Ml Insuln.pen, 10 UNIT SQ TIDWM Prescribed by: DIANNA CARTWRIGHT on 09/27/19 1217 Isosorbide Mononitrate 60 Mg Tab, 60 MG PO DAILY, (Reported) Levothyroxine Sodium 88 Mcg Tablet, 88 MCG PO DAILY, (Reported) Lisinopril 40 Mg Tablet, 40 MG PO DAILY Prescribed by: DIANNA CARTWRIGHT on 09/27/19 1014 Multivitamin 1 Each Tablet, 1 EACH PO DAILY, (Reported) Nitroglycerin 0.4 Mg Tab.subl, 0.4 MG SL UD PRN for CHEST PAIN, (Reported) [place] 3 Polyunsat Fatty Acids 1,000 Mg Cap, 1,000 MG PO BID, (Reported) Rivaroxaban 20 Mg Tablet, 20 MG PO DAILY Prescribed by: DIANNA CARTWRIGHT on 09/27/19 1014 Patient Home Medication List Home Medication List Reviewed: Yes Review of Systems Constitutional: No dizziness, No fever, No malaise, No weakness EENTM: no symptoms reported Respiratory: no symptoms reported; No cough, No short of breath Cardiovascular: No chest pain, No edema, No palpitations, No syncope Gastrointestinal: no symptoms reported Musculoskeletal: see HPI (LLE pain, redness and swelling) Skin: see HPI, change in color Psychiatric/Neurological: Denies Numbness, Denies Paresthesia Past Ijdfpxf-Xvfziu-Rvneuk Hx Past Med/Social Hx: Reviewed Nursing Past Med/Soc Hx Patient Social History Smoking Status: Current Everyday Smoker Type Used: Cigarettes 2nd Hand Smoke Exposure: No Recent Hopitalizations: No Immunizations Up To Date Date of Pneumonia Vaccine: Mar 09, 2016 Date of Influenza Vaccine: Dec 07, 2017 Seasonal Allergies Seasonal Allergies: No Past Medical History Surgeries: Yes Coronary Stent, Hysterectomy Respiratory: No Cardiac: Yes Coronary Artery Disease, Heart Attack, Peripheral Vascular Neurological: No Neuropathy Sexually Transmitted Disease: No HIV/AIDS: No Genitourinary: No Gastrointestinal: Yes Gastroesophageal Reflux Musculoskeletal: No Endocrine: Yes Diabetes, Non-Insulin dep HEENT: No Cancer: No Psychosocial: No Integumentary: No Psoriasis Blood Disorders: No Adverse Reaction/Blood Tranf: No Family Medical History Completed stroke 19 FATHER Diabetes mellitus 19 FATHER G8 BROTHER G8 SISTER No Pertinent Family Hx Physical Exam Vital Signs Vital Signs - First Documented 01/05/20 08:45 Temp 36.0 Pulse 93 Resp 18 B/P (MAP) 161/68 (99) Pulse Ox 95 O2 Delivery Nasal Cannula O2 Flow Rate 2.00 Capillary Refill : Height, Weight, BMI Height: 5'2.00" Weight: 179lbs. 5.0oz. 81.934498wm; 39.35 BMI Method:Stated General Appearance: WD/WN, no apparent distress Cardiovascular: regular rate, rhythm, no JVD Respiratory: chest non-tender, lungs clear, normal breath sounds Gastrointestinal: non tender, soft Legs: left leg pain, left leg soft tissue tenderness, left leg swelling Knees: bilateral knee non-tender, bilateral knee normal inspection, bilateral knee normal range of motion, bilateral knee no evidence of injury Ankles: bilateral ankle non-tender, bilateral ankle normal inspection, bilateral ankle normal range of motion, bilateral ankle no evidence of injury Feet: bilateral foot non-tender, bilateral foot normal inspection Neurologic/Tendon: normal sensation, normal motor functions Neurologic/Psychiatric: no motor/sensory deficits, alert, normal mood/affect (left lower extremity. Noted erythema with induration proximal and medial tibia with moderate tenderness to touch, no abscess formation, but warmth consistent with cellulitis. Generalized tenderness of the proximal tibia without localization. Knee without effusion or joint line tenderness.) Procedures/Interventions Date of ETT Placement: Feb 01, 2018 Time of ETT Placement: 1613 Progress/Results/Core Measures Results/Orders My Orders Orders - HAM FERNÁNDEZ DO Tibia Fibula 2 View Left (01/05/20 08:58) Vital Signs/I&O 01/05/20 08:45 Temp 36.0 Pulse 93 Resp 18 B/P (MAP) 161/68 (99) Pulse Ox 95 O2 Delivery Nasal Cannula O2 Flow Rate 2.00 Diagnostic Imaging Diagonstic Imaging: Xray Plain Films/CT/US/NM/MRI: leg Departure Impression Primary Impression: Left leg cellulitis Disposition: 01 HOME, SELF-CARE Condition: Stable Departure-Patient Inst. Decision time for Depature: 09:11 Referrals: SVITLANA VALLEJO MD (PCP/Family) Primary Care Physician Patient Instructions: Cellulitis (Skin Infection), Adult (DC) Add. Discharge Instructions: Follow up with your PCP (Dr Vega) in 3-5 days if not improving, sooner if worse. All discharge instructions reviewed with patient and/or family. Voiced understanding. Scripts Cephalexin (Cephalexin) 500 Mg Tablet 500 MG PO QID, #28 TAB 0 Refills Prov: HAM FERNÁNDEZ DO 01/05/20 HAM FERNÁNDEZ DO Jan 05, 2020 09:05
[2020-01-05] MEDS ORDERED: CEPH500T PO (09:06)
--- NOTE | 2020-01-05 09:19 | Diagnostic Imaging Report ---
Left tibia-fibula at 9:05. Indication: Fell out of bed one week ago. AP and lateral views were obtained. There are no prior studies available for comparison. There is no fracture, dislocation or acute bony abnormality evident. The knee and ankle joints are fairly well maintained. The soft tissues are unremarkable. Impression: There is no evidence for an acute bony abnormality. Dictated by: Dictated on workstation # [id number]
== END 2020-01-05 09:19 | disposition home or self-care (01) ==
LOC: EDUNIT# 08:43 → ER FS 08:45
DX: L03.116 Cellulitis of left lower limb (principal); I25.2 Old myocardial infarction; E11.9 Type 2 diabetes mellitus without complications; F17.210 Nicotine dependence, cigarettes, uncomplicated; Z20.828 Contact with and (suspected) exposure to other viral communicable diseases; Z83.3 Family history of diabetes mellitus; Z79.01 Long term (current) use of anticoagulants; Z88.8 Allergy status to other drugs, medicaments and biological substances
CPT/HCPCS: 73590

== ENCOUNTER 2020-02-26 21:22 | Emergency (ER) | payer SELFPAY ==
[~2020-02-26] VITALS: Ht 157.4 cm; Wt 86.1 kg
[~2020-02-26 21:22] MED LIST changes: +CEPH500T PO
[2020-02-26 21:29] VITALS: BP 181/75
[2020-02-26] MEDS ORDERED: HYDROcodone/APAP 5 MG/325 MG (LORTAB) TAB PO STA (21:37)
--- NOTE | 2020-02-26 21:44 | ED Hip Pain/Injury ---
General Chief Complaint: Hip/Pelvic Problems Stated Complaint: RT HIP PAIN Nursing Triage Note: Patient states that she fell 12--, hitting her right hip. Patient states the pain has progressively gotten worse over the week. Source: patient History of Present Illness Date Seen by Provider: Feb 26, 2020 Time Seen by Provider: 21:24 Initial Comments 64 yo female presents to ED from home with complaint of right hip pain going down her leg to the knee. she rolled out of bed on 02/18 and has had pain since then. She thought it would get better so she did not go to see Dr. Menon or cm kimbrough in the [facility] about it. Then last night she hardly slept because it was hurting so bad. She has been able to walk on her right leg. She uses a cane to ambulate. She denies hitting her head or losing consciousness. She has diabetes, htn and neuropathy. She last took tylenol around noon for the pain. She decided to come to the ED tonight because it was hurting so bad and she did not want another night of not being able to sleep due to pain without having it checked out. Allergies and Home Medications Allergies Uncoded Allergies: Beta bernard (Adverse Reaction, Unknown, 2.4 second pause (07/2018), 05/16/19) Home Medications Albuterol Sulfate 6.7 Gm Hfa.aer.ad, 2 PUFF INH Q6H Prescribed by: CAROLINA ALMEIDA on 06/15/19 0015 Atorvastatin Calcium 40 Mg Tablet, 40 MG PO HS, (Reported) Baclofen 10 Mg Tablet, 10 MG PO BID PRN for muscle spasm/pain Prescribed by: LUCINDA WANG on 02/26/202219 Cephalexin 500 Mg Tablet, 500 MG PO QID Prescribed by: HAM FERNÁNDEZ on 01/05/20 0906 Clopidogrel Bisulfate 75 Mg Tablet, 75 MG PO DAILY, (Reported) Gabapentin 300 Mg Capsule, 300 MG PO BID, (Reported) Hydrocodone/Acetaminophen 1 Each Tablet, 1 EACH PO Q6H PRN for PAIN-SEVERE (8- 10) Prescribed by: LUCINDA WANG on 02/26/20 2220 Insulin Detemir 100 Unit/1 Ml Insuln.pen, 30 UNIT SQ BID Prescribed by: DIANNA CARTWRIGHT on 09/27/19 1014 Insulin Lispro 100 Unit/1 Ml Insuln.pen, 10 UNIT SQ TIDWM Prescribed by: DIANNA CARTWRIGHT on 09/27/19 1217 Isosorbide Mononitrate 60 Mg Tab, 60 MG PO DAILY, (Reported) Levothyroxine Sodium 88 Mcg Tablet, 88 MCG PO DAILY, (Reported) Lisinopril 40 Mg Tablet, 40 MG PO DAILY Prescribed by: DIANNA CARTWRIGHT on 09/27/19 1014 Multivitamin 1 Each Tablet, 1 EACH PO DAILY, (Reported) Nitroglycerin 0.4 Mg Tab.subl, 0.4 MG SL UD PRN for CHEST PAIN, (Reported) [place] 3 Polyunsat Fatty Acids 1,000 Mg Cap, 1,000 MG PO BID, (Reported) Rivaroxaban 20 Mg Tablet, 20 MG PO DAILY Prescribed by: DIANNA CARTWRIGHT on 09/27/19 1014 Patient Home Medication List Home Medication List Reviewed: Yes Review of Systems Constitutional: No chills, No fever EENTM: no symptoms reported Respiratory: no symptoms reported Cardiovascular: no symptoms reported Gastrointestinal: no symptoms reported Genitourinary: no symptoms reported Musculoskeletal: see HPI, joint pain (right hip pain going down thigh to knee) Skin: other (abrasion on right leggett) Psychiatric/Neurological: Other (chronic neuropathy pain) Past Ggzzlxj-Frklmw-Wjiilc Hx Past Med/Social Hx: Reviewed Nursing Past Med/Soc Hx Patient Social History Type Used: Cigarettes 2nd Hand Smoke Exposure: No Recent Foreign Travel: No Contact w/Someone Who Travel: No Recent Infectious Disease Expo: No Recent Hopitalizations: No Immunizations Up To Date Date of Pneumonia Vaccine: Mar 09, 2016 Date of Influenza Vaccine: Dec 07, 2017 Seasonal Allergies Seasonal Allergies: No Past Medical History Surgeries: Yes Coronary Stent, Hysterectomy Respiratory: No Cardiac: Yes (NSTEMI) Coronary Artery Disease, Heart Attack, High Cholesterol, Peripheral Vascular Neurological: No Neuropathy Sexually Transmitted Disease: No HIV/AIDS: No Genitourinary: No Gastrointestinal: Yes Gastroesophageal Reflux Musculoskeletal: No Endocrine: Yes Hypothyroidsim, Diabetes, Non-Insulin dep HEENT: No Cancer: No Psychosocial: No Integumentary: No Psoriasis Blood Disorders: No Adverse Reaction/Blood Tranf: No Family Medical History Completed stroke 19 FATHER Diabetes mellitus 19 FATHER G8 BROTHER G8 SISTER No Pertinent Family Hx Physical Exam Vital Signs Vital Signs - First Documented 02/26/20 21:29 Temp 37.0 Pulse 94 Resp 18 B/P (MAP) 181/75 (110) Pulse Ox 97 O2 Delivery Room Air Capillary Refill : Less Than 3 Seconds Height, Weight, BMI Height: 5'2.00" Weight: 179lbs. 5.0oz. [id number]; 34.00 BMI Method:Stated General Appearance: No Apparent Distress, WD/WN Extremity: Normal Capillary Refill, No Pedal Edema, Other (tender to palpation posterior and lateral hip on right side) Neurologic/Psychiatric: Alert, Oriented x3 Skin: Warm/Dry Procedures/Interventions Date of ETT Placement: Feb 01, 2018 Time of ETT Placement: 1613 Progress/Results/Core Measures Results/Orders My Orders Orders - LUCINDA WANG MD Pelvis With Right Hip 2-3 View (02/26/20 21:37) Femur 2 View Right (02/26/20 21:37) Hydrocodone/Apap 5/325 Tablet (Lortab 5 (02/26/20 21:37) Orphenadrine Inj (Ed Only) (Norflex Inje (02/26/20 22:18) Vital Signs/I&O 02/26/20 21:29 Temp 37.0 Pulse 94 Resp 18 B/P (MAP) 181/75 (110) Pulse Ox 97 O2 Delivery Room Air Blood Pressure Mean: 110 Progress Progress Note #1: Progress Note Hydrocodone to try and help with pain as she rates it 10/10. Imaging of her pelvis and right hip and right femur. Progress Note #2: Time: 22:09 Progress Note No acute fracture or dislocation seen on my review of the films. Will check with patient about pain medicine and having her check back with clinic. Add in norflex here and a few baclofen with hydrocodone for severe pain at home. check with clinic about PT for pain or may need MRI if not improving Diagnostic Imaging Diagonstic Imaging: Xray Plain Films/CT/US/NM/MRI: pelvis, hip, femur Comments On my review of 1 view pelvis and 6 views of hip and femur no acute fracture or dislocation seen. Departure Impression Primary Impression: Contusion of right hip, initial encounter Additional Impressions: Sprain of right hip Qualified Codes: S73.101A - Unspecified sprain of right hip, initial encounter Fall from bed, initial encounter Disposition: HOME, SELF-CARE Condition: Stable Departure-Patient Inst. Decision time for Depature: 22:22 Referrals: SELF,SVITLANA TOLLIVER MD, MD (PCP) Primary Care Physician Patient Instructions: Contusion (DC), Hip Pain (DC) Add. Discharge Instructions: Try taking medicine for pain and muscle spasms to help with hip pain and leg pain. Check with clinic if not improving as they may need to try MRI or physical therapy to help with your hip and leg pain. Make sure you are drinking plenty of water to help with hydration and consider a laxative if you have to take the pain pills. All discharge instructions reviewed with patient and/or family. Voiced understanding. Scripts Hydrocodone/Acetaminophen (Hydrocodone-Acetamin 5-325 mg) 1 Each Tablet 1 EACH PO Q6H PRN for PAIN-SEVERE (8-10) for 5 Days, #20 TAB 0 Refills Prov: LUCINDA WANG MD 02/26/20 Baclofen (Baclofen) 10 Mg Tablet 10 MG PO BID PRN for muscle spasm/pain for 7 Days, #14 TAB 0 Refills Prov: LUCINDA WANG MD 02/26/20 LUCINDA WANG MD Feb 26, 2020 21:44
[2020-02-26] MEDS ORDERED: ORPHENADRINE 60 MG/2 ML (NORFLEX) AMP (ED ONLY) IM STA (22:18)
[2020-02-26] MEDS ORDERED: ACHD5005 PO (22:20)
[2020-02-26] MEDS ORDERED: BACL10TA PO (22:20)
--- NOTE | 2020-02-27 07:12 | Diagnostic Imaging Report ---
CLINICAL HISTORY: Fall. Right hip pain. COMPARISON: None. TECHNIQUE: 4 views of the right femur. FINDINGS: There is no acute fracture or dislocation of the right femur. Alignment is anatomic. No focal osseous lesions are seen. Vascular calcifications are seen in the included right lower extremity. IMPRESSION: 1. No acute fracture or dislocation in the right femur. Dictated by: Dictated on workstation # [id number]
--- NOTE | 2020-02-27 07:13 | Diagnostic Imaging Report ---
CLINICAL HISTORY: Fall. Right hip pain. COMPARISON: None. TECHNIQUE: 3 views of the pelvis and right hip. FINDINGS: There is no acute fracture or dislocation of the pelvis and right hip. Alignment is anatomic. The imaged joint spaces are preserved. Vascular calcifications are noted bilaterally. IMPRESSION: 1. No acute fracture or dislocation in the pelvis and right hip. Dictated by: Dictated on workstation # [id number]
== END 2020-02-26 22:27 | disposition home or self-care (01) ==
LOC: EDUNIT# 21:22 → ER FS 21:28
DX: S73.101A Unspecified sprain of right hip, initial encounter (principal); I25.2 Old myocardial infarction; E78.00 Pure hypercholesterolemia, unspecified; E03.9 Hypothyroidism, unspecified; Z83.3 Family history of diabetes mellitus; Z95.5 Presence of coronary angioplasty implant and graft; Z79.890 Hormone replacement therapy; Z88.8 Allergy status to other drugs, medicaments and biological substances; Z79.01 Long term (current) use of anticoagulants; W06.XXXA Fall from bed, initial encounter
CPT/HCPCS: 73502; 73552

== ENCOUNTER → 2020-06-08 | Outpatient (CLI) | payer SELFPAY ==
[~2020-06-08] MED LIST changes: +ACHD5005 PO; +BACL10TA PO; -ISM60TCR PO; +ISOS60TA63 PO; -LISI-552 PO; +LISI20TA26 PO; -LISI40TA PO; +LISI40TA9 PO
--- NOTE | 2020-06-08 17:02 | Diagnostic Imaging Report ---
INDICATION: Essential hypertension, shortness of breath. COMPARISON: 09/25/2019 TECHNIQUE: Two radiographs of the chest dated 06/08/2020. FINDINGS: The cardiac silhouette is enlarged, though stable. No significant pulmonary vascular congestion. The lungs are clear of focal pulmonary opacity. No pleural effusion. No pneumothorax. No acute osseous abnormality. IMPRESSION: Stable marked mild cardiomegaly without pulmonary vascular congestion or additional superimposed acute cardiopulmonary abnormality. Dictated by: Dictated on workstation # [id number]
== END ==
LOC: RAD FS 16:21
PROVIDERS: ATTEND Family Medicine
DX: I11.9 Hypertensive heart disease without heart failure (principal)
CPT/HCPCS: 71046

== ENCOUNTER → 2020-07-11 | Outpatient (CLI) | payer SELFPAY | LOC: CARD 14:00 | PROVIDERS: ATTEND Internal Medicine Cardiovascular Disease | DX: I25.10 Atherosclerotic heart disease of native coronary artery without angina pectoris (principal); I34.0 Nonrheumatic mitral (valve) insufficiency; I48.0 Paroxysmal atrial fibrillation; I11.0 Hypertensive heart disease with heart failure; I50.9 Heart failure, unspecified | CPT/HCPCS: 93306 ==

== ENCOUNTER → 2020-07-12 | Outpatient (CLI) | payer SELFPAY ==
[~2020-07-12] VITALS: Ht 157 cm; Wt 89.0 kg
[~2020-07-12] MED LIST changes: +CATHETER FLUSH 10 ML SYR IV PRN; +REGADENOSON 0.4 MG/5 ML SYR (LEXISCAN) IV ONE
[2020-07-12 07:54] VITALS: BP 217/91
--- NOTE | 2020-07-13 08:46 | Cardiology Stress Test Report ---
Stress Test Report Date of Procedure/Referring: Date of Procedure: July 12, 2020 PCP German Willoughby MD Admitting Physician Bear Menon MD Indications: CAD Baseline Heart Rate: 86 Baseline Blood Pressure: Blood Pressure Systolic: 217 Blood Pressure Diastolic: 91 Baseline Vitals Vital Signs Date Time Temp Pulse Resp B/P (MAP) Pulse Ox O2 Delivery O2 Flow Rate FiO2 07/12/20 07:54 85 20 217/91 (133) 98 Nasal Cannula 3.00 Baseline EKG: Baseline EKG: LBBB Summary After explaining the procedure to the patient, she signed a consent and then brought to the stress nuclear laboratory. Patient received 0.4 mg Lexiscan for stress test, ECG, heart rate and blood pressure were monitored continuously. Resting and stress dose of radio tracer were injected, imaging was acquired and reviewed in short axis, horizontal long axis and vertical long axis views. TID: 1.1 SSS: 17 SDS: 6 EF: 21 1. Patient tolerated Lexiscan well 2. Baseline left bundle branch block persisted during test 3. Patchy uptake with fixed defect involving the inferior wall, fixed defect at the base of the anterior wall, mild reversible ischemia involving the anterior wall and anterior apical segment 4. Dilated left ventricle with severe diffuse left ventricular hypokinesia, EF 21% GERMAN WILLOUGHBY MD July 13, 2020 08:46
== END ==
LOC: CARD 07:00
PROVIDERS: ATTEND Internal Medicine Cardiovascular Disease
DX: I44.7 Left bundle-branch block, unspecified (principal); I25.10 Atherosclerotic heart disease of native coronary artery without angina pectoris; I11.0 Hypertensive heart disease with heart failure; I25.89 Other forms of chronic ischemic heart disease; I50.9 Heart failure, unspecified; I48.0 Paroxysmal atrial fibrillation
CPT/HCPCS: 78452; 93017; A9502

== ENCOUNTER → 2020-07-19 | Outpatient (CLI) | payer SELFPAY ==
[~2020-07-19] MED LIST changes: -REGADENOSON 0.4 MG/5 ML SYR (LEXISCAN) IV ONE
== END ==
LOC: CARD 09:35
PROVIDERS: ATTEND Physician Assistant
DX: I50.9 Heart failure, unspecified (principal)
CPT/HCPCS: 78452; 93017; A9502

== ENCOUNTER 2020-08-17 15:00 | Inpatient (IN) | payer SELFPAY ==
[~2020-08-17] VITALS: Ht 157.5 cm; Wt 96.0 kg
[~2020-08-17 15:00] MED LIST changes: -CATHETER FLUSH 10 ML SYR IV PRN
--- NOTE | 2020-08-17 16:59 | ED Syncope ---
General Chief Complaint: Head/Cervical Problems Stated Complaint: FELL HIT HEAD Nursing Triage Note: Pt to ED in wheelchair. Pt reports falling out of bed a week and a half ago. Pt struck R side of head. Pt has bruising to R side of face. Pt reports being sent to ED from Dr. Buenrostro. Pt c/o double vision and nausea periodically since fall. Son reports pt will be sitting in bed and has what appears to be a syncopal episode and then is awake again in 3-4 seconds. Source of Information: Patient Exam Limitations: No Limitations (BARBARA FERGUSON MD) History of Present Illness Date Seen by Provider: Aug 17, 2020 Time Seen by Provider: 16:40 Initial Comments This 65-year-old woman presents to the emergency room with multiple complaints. She is accompanied by her son who states that they were directed here by Dr. Buenrostro after a clinic visit. She reportedly fell out of bed about 10 days ago injuring the right side of her face. She has obvious contusion with bruising streaking down to the submandibular areas. She has describes some concussion sy mptoms including double vision and nausea. She has a history of heart failure and is to be fitted with a LifeVest this evening. She has heart failure with a recent ejection fraction of 30 to 35%. She also has COPD and uses supplemental oxygen at home. She is diabetic with persistently elevated blood sugars. Son reports patient has been having brief episodes of syncope at night while sitting up in bed. She will suddenly appear to "fall asleep" and then promptly resume consciousness. This has been happening repeatedly in the evenings for the past 3 or 4 days. He reports blood sugars are unchanged during these episodes. Son also reports Dr. Buenrostro stated she may need heart cath with additional stent placement. Patient presents in wheelchair. 17:48 -I did speak with Dr. Buenrostro about his concerns. He was concerned about head trauma and possible brain bleed as well as hypersomnolence. He was under the impression the patient is overly sedated possibly from polypharmacy. He was not under the impression she was having syncopal episodes. However, when talking to the son, he describes sudden episodes of loss of consciousness, even in mid conversation. This usually happens in a seated upright position. It occurs more often at night but can happen anytime during the day. Patient does take multiple sedating medications but also has significant cardiac history. Dr. Buenrostro recommended admission if syncope was suspected. (BARBARA FERGUSON MD) Allergies and Home Medications Allergies Uncoded Allergies: Beta bernard (Adverse Reaction, Unknown, 2.4 second pause (07/2018), 05/16/19) Home Medications Albuterol Sulfate 6.7 Gm Hfa.aer.ad, 2 PUFF INH Q6H Prescribed by: CAROLINA ALMEIDA on 06/15/19 0015 Atorvastatin Calcium 40 Mg Tablet, 40 MG PO HS, (Reported) Baclofen 10 Mg Tablet, 10 MG PO BID PRN for muscle spasm/pain Prescribed by: LUCINDA WANG on 02/26/202219 Cephalexin 500 Mg Tablet, 500 MG PO QID Prescribed by: HAM FERNÁNDEZ on 01/05/20 0906 Clopidogrel Bisulfate 75 Mg Tablet, 75 MG PO DAILY, (Reported) Gabapentin 300 Mg Capsule, 300 MG PO BID, (Reported) Hydrocodone/Acetaminophen 1 Each Tablet, 1 EACH PO Q6H PRN for PAIN-SEVERE (8- 10) Prescribed by: LUCINDA WANG on 02/26/202219 Insulin Detemir 100 Unit/1 Ml Insuln.pen, 30 UNIT SQ BID Prescribed by: DIANNA CARTWRIGHT on 09/27/19 1014 Insulin Lispro 100 Unit/1 Ml Insuln.pen, 10 UNIT SQ TIDWM Prescribed by: DIANNA CARTWRIGHT on 09/27/19 1217 Isosorbide Mononitrate 60 Mg Tab, 60 MG PO DAILY, (Reported) Levothyroxine Sodium 88 Mcg Tablet, 88 MCG PO DAILY, (Reported) Lisinopril 40 Mg Tablet, 40 MG PO DAILY Prescribed by: DIANNA CARTWRIGHT on 09/27/19 1014 Multivitamin 1 Each Tablet, 1 EACH PO DAILY, (Reported) Nitroglycerin 0.4 Mg Tab.subl, 0.4 MG SL UD PRN for CHEST PAIN, (Reported) Parrish 3 Polyunsat Fatty Acids 1,000 Mg Cap, 1,000 MG PO BID, (Reported) Rivaroxaban 20 Mg Tablet, 20 MG PO DAILY Prescribed by: DIANNA CARTWRIGHT on 09/27/19 1014 Patient Home Medication List Home Medication List Reviewed: Yes (BARBARA FERGUSON MD) Review of Systems Constitutional: no symptoms reported EENTM: no symptoms reported Respiratory: no symptoms reported Cardiovascular: see HPI Gastrointestinal: see HPI Genitourinary: no symptoms reported : No Musculoskeletal: see HPI Skin: see HPI Psychiatric/Neurological: See HPI (BARBARA FERGUSON MD) Past Kyfujmm-Kpjtmd-Eydjmy Hx Past Med/Social Hx: Reviewed Nursing Past Med/Soc Hx (BARBARA FERGUSON MD) Patient Social History Alcohol Use: Denies Use Smoking Status: Current Everyday Smoker Type Used: Cigarettes 2nd Hand Smoke Exposure: No Recent Infectious Disease Expo: No Recent Hopitalizations: No (BARBARA FERGUSON MD) Immunizations Up To Date Date of Pneumonia Vaccine: Mar 09, 2016 Date of Influenza Vaccine: Dec 07, 2017 (BARBARA FERGUSON MD) Seasonal Allergies Seasonal Allergies: No (BARBARA FERGUSON MD) Past Medical History Surgeries: Yes Coronary Stent, Hysterectomy Respiratory: No Cardiac: Yes (NSTEMI, heart failure with EF 30 to 35% in July 2020) Coronary Artery Disease, Heart Attack, High Cholesterol, Peripheral Vascular Neurological: No Neuropathy Sexually Transmitted Disease: No HIV/AIDS: No Genitourinary: No Gastrointestinal: Yes Gastroesophageal Reflux Musculoskeletal: No Endocrine: Yes Hypothyroidsim, Diabetes, Non-Insulin dep HEENT: No Cancer: No Psychosocial: No Integumentary: No Psoriasis Blood Disorders: No Adverse Reaction/Blood Tranf: No (BARBARA FERGUSON MD) Family Medical History Completed stroke 19 FATHER Diabetes mellitus 19 FATHER G8 BROTHER G8 SISTER No Pertinent Family Hx (BARBARA FERGUSON MD) Physical Exam Vital Signs Vital Signs - First Documented 08/17/20 08/17/20 15:50 18:19 Temp 37.3 Pulse 82 Resp 18 B/P (MAP) 187/83 (117) Pulse Ox 92 O2 Delivery Room Air O2 Flow Rate 3.00 (PITER GARCIAA Sunita DO) Vital Signs Capillary Refill : Less Than 3 Seconds (BARBARA FERGUSON MD) Height, Weight, BMI Height: 5'2.00" Weight: 179lbs. 5.0oz. 81.179100ol; 35.00 BMI Method:Stated General Appearance: No Apparent Distress, WD/WN HEENT: PERRL/EOMI, Pharynx Normal, Other (Indurated contusion on the right maxillary region with ecchymosis extending down to the submandibular area on the right. 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 Norm as Tested, Other (Appears a bit somnolent) Cranial Nerves: Normal Hearing, Normal Speech, PERRL Motor/Sensory: No Motor Deficit, No Sensory Deficit Skin: Normal Color, Warm/Dry, Ecchymosis (BARBARA FERGUSON MD) Procedures/Interventions Date of ETT Placement: Feb 01, 2018 Time of ETT Placement: 1613 (BARBARA FERGUSON MD) Progress/Results/Core Measures Results/Orders Lab Results Laboratory Tests Test 08/17/20 17:16 08/17/20 18:29 08/17/20 18:45 Range/Units Urine Color YELLOW Urine Clarity CLEAR Urine pH 6.0 5-9 Urine Specific [place] 1.025 H 1.016-1.022 Urine Protein 3+ H NEGATIVE Urine Glucose (UA) 2+ H NEGATIVE Urine Ketones NEGATIVE NEGATIVE Urine Nitrite NEGATIVE NEGATIVE Urine Bilirubin NEGATIVE NEGATIVE Urine Urobilinogen 1.0 < = 1.0 MG/DL Urine Leukocyte Esterase NEGATIVE NEGATIVE Urine RBC (Auto) 1+ H NEGATIVE Urine RBC 0-2 /HPF Urine WBC 0-2 /HPF Urine Crystals PRESENT H /LPF Urine Amorphous Sediment RARE YEISON URATES H /LPF Urine Bacteria TRACE /HPF Urine Casts PRESENT /LPF Urine Hyaline Casts 0-2 H /LPF Urine Mucus NEGATIVE /LPF Urine Culture Indicated NO Blood Gas Puncture Site R BRACH Blood Gas Patient Temperature 37 Arterial Blood pH 7.34 *L 7.37-7.43 Arterial Blood Partial Pressure CO2 50 H 35-45 MMHG Arterial Blood Partial Pressure O2 86 79-93 MMHG Arterial Blood HCO3 26 23-27 MMOL/L Arterial Blood Total CO2 27.6 21.0-31.0 MMOL/L Arterial Blood Oxygen Saturation 98 94-100 % Arterial Blood Base Excess 1.0 -2.5-2.5 MMOL/L [place] Test YES-POS Blood Gas Ventilator Setting NO Blood Gas Inspired Oxygen 3 White Blood Count 7.2 4.3-11.0 10^3/uL Red Blood Count 3.95 3.80-5.11 10^6/uL Hemoglobin 11.9 11.5-16.0 g/dL Hematocrit 37 35-52 % Mean Corpuscular Volume 93 80-99 fL Mean Corpuscular Hemoglobin 30 25-34 pg Mean Corpuscular Hemoglobin Concent 32 32-36 g/dL Red Cell Distribution Width 14.4 10.0-14.5 % Platelet Count 133 130-400 10^3/uL Mean Platelet Volume 10.9 9.0-12.2 fL Immature Granulocyte % (Auto) 1 % Neutrophils (%) (Auto) 79 H 42-75 % Lymphocytes (%) (Auto) 11 L 12-44 % Monocytes (%) (Auto) 7 0-12 % Eosinophils (%) (Auto) 2 0-10 % Basophils (%) (Auto) 0 0-10 % Neutrophils # (Auto) 5.7 1.8-7.8 10^3/uL Lymphocytes # (Auto) 0.8 L 1.0-4.0 10^3/uL Monocytes # (Auto) 0.5 0.0-1.0 10^3/uL Eosinophils # (Auto) 0.2 0.0-0.3 10^3/uL Basophils # (Auto) 0.0 0.0-0.1 10^3/uL Immature Granulocyte # (Auto) 0.0 0.0-0.1 10^3/uL Prothrombin Time 14.0 12.2-14.7 SEC INR Comment 1.0 0.8-1.4 Activated Partial Thromboplast Time 36 H 24-35 SEC Sodium Level 137 135-145 MMOL/L Potassium Level 4.1 3.6-5.0 MMOL/L Chloride Level 102 98-107 MMOL/L Carbon Dioxide Level 23 21-32 MMOL/L Anion Gap 12 5-14 MMOL/L Blood Urea Nitrogen 23 H 7-18 MG/DL Creatinine 1.54 H 0.60-1.30 MG/DL Estimat Glomerular Filtration Rate 34 BUN/Creatinine Ratio 15 Glucose Level 287 H 70-105 MG/DL Calcium Level 8.7 8.5-10.1 MG/DL Corrected Calcium 9.3 8.5-10.1 MG/DL Magnesium Level 1.9 1.6-2.4 MG/DL Total Bilirubin 0.5 0.1-1.0 MG/DL Aspartate Amino Transf (AST/SGOT) 16 5-34 U/L Alanine Aminotransferase (ALT/SGPT) 15 0-55 U/L Alkaline Phosphatase 86 40-136 U/L Myoglobin 124.9 H 10.0-92.0 NG/ML Troponin I 0.078 H <0.028 NG/ML B-Type Natriuretic Peptide 910.0 H <100.0 PG/ML Total Protein 7.0 6.4-8.2 GM/DL Albumin 3.2 3.2-4.5 GM/DL Thyroid Stimulating Hormone (TSH) 13.36 H 0.35-4.94 UIU/ML Free Thyroxine 0.76 0.70-1.48 NG/DL (LUIS ALBERTO GARCIA DO) My Orders Orders - LUIS ALBERTO GARCIA DO Arterial Blood Gas (08/17/20 18:26) (LUIS ALBERTO GARCIA DO) Vital Signs/I&O 08/17/20 08/17/20 15:50 18:19 Temp 37.3 Pulse 82 Resp 18 B/P (MAP) 187/83 (117) Pulse Ox 92 94 O2 Delivery Room Air Nasal Cannula O2 Flow Rate 3.00 (LUIS ALBERTO GARCIA DO) Blood Pressure Mean: 117 Progress Progress Note : Time: 17:02 Progress Note Patient was seen and examined. CT of the head, cervical spine, and face was ordered. Patient had no diplopia with extraocular movements. She has 2 separate issues going on today. She has the injury to the face and she has the frequent syncopal episodes. We will address both of these issues today during her evaluation. I did discuss CODE STATUS with the patient and she would like to remain full code. Inhaler was ordered for her wheezing. (BARBARA FERGUSON MD) Progress Note : Progress Note 1800--ASSUMED CARE FROM DR. FERGUSON, LAB PENDING 1857--ZOLL MANAGER OF HUMAN RESOURCES IN ROOM, PUTTING LIFE VEST ON PATIENT. PT SLEPT SOUNDLY FOR REMAINDER OF ER STAY PT HAD NO COMPLAINTS VITALS STABLE, NO ARRHYTHMIAS (LUIS ALBERTO GARCIA DO) Initial ECG Impression Date: Aug 17, 2020 Initial ECG Impression Time: 17:20 Initial ECG Rate: 91 Comment Sinus rhythm with no acute ST elevation or depression. Chronic changes are unchanged from prior. LVH with secondary repolarization. No abnormal intervals. (BARBARA FERGUSON MD) Diagnostic Imaging Diagonstic Imaging: CT Plain Films/CT/US/NM/MRI: facial bones, c-spine, head Comments CT head, face, and C-spine viewed by me and report reviewed. See report below: NAME: [facility] REC#: [id number] PT STATUS: REG ER : 1955 PHYSICIAN: BARBARA FERGUSON MD ADMIT DATE: 08/17/20/ER Signed Date of Exam:08/17/20 CT HEAD/FACE/CERVICAL WO EXAMINATION: CT head, face and CT cervical spine without contrast. TECHNIQUE: Multiple contiguous axial images were obtained through the face, brain and cervical spine without the use of intravenous contrast. Sagittal and coronal reformations through the cervical spine were then performed. All CT scans use one or more of the following dose optimizing techniques: automated exposure control, MA and/or KvP adjustment based on patient size and exam type or iterative reconstruction. HISTORY: Fall onto head and face with pain. COMPARISON: None available. FINDINGS: HEAD: The ventricles and sulci are normal. No abnormal attenuation of brain parenchyma is present. No acute intracranial hemorrhage or abnormal extra-axial fluid collections are present. Calcification of the intracranial ICAs. No hyperdense vessel. The calvarium is intact. The mastoid air cells are clear. Mucosal thickening of the nasal sinuses. The orbits are normal. There is soft tissue swelling along the right infraorbital soft tissues. C-SPINE: Vertebral body height and alignment are preserved. No acute fracture, dislocation, or destructive osseous process. There is multilevel facet hypertrophy without perched facets. Multilevel cervical spondylosis. The paraspinous soft tissues are normal. The visualized thyroid gland is normal. The visualized lung apices are normal. FACE: No fracture is seen in the face. The nasal bones are normal. Mandible and maxillae are normal. Zygomatic arches are normal. Pterygoid plates are normal. There is right infraorbital facial soft tissue hematoma and swelling. IMPRESSION: 1. Right infraorbital facial soft tissue hematoma and swelling without underlying fracture. 2. No other acute intracranial abnormality. 3. Degenerative changes of the cervical spine without acute osseous abnormality. Dictated by: Dictated on workstation # [id number] Dict: 08/17/201703 Trans: 08/17/201713 [facility] [id number] Interpreted by: ABDIAZIZ PEREYRA DO Electronically signed by: ABDIAZIZ PEREYRA DO 08/17/201713 Diagonstic Imaging: Xray Plain Films/CT/US/NM/MRI: chest Comments Chest x-ray reviewed by me and report reviewed. See report below: NAME: [facility] REC#: [id number] PT STATUS: REG ER : 1955 PHYSICIAN: BARBARA FERGUSON MD ADMIT DATE: 08/17/20/ER Signed Date of Exam:08/17/20 CHEST 1 VIEW, AP/PA ONLY INDICATION: Fell and hit head 10 days ago, chest pain. FINDINGS: Frontal view of the chest is unchanged from 06/08/2020. Mild cardiomegaly is stable. The vascularity is normal. Lungs are clear. No pleural effusion is present. IMPRESSION: There is stable mild cardiomegaly. Dictated by: Dictated on workstation # [id number] Dict: 08/17/201703 Trans: 08/17/201720 [facility] [id number] Interpreted by: TEO ZAMBRANO MD Electronically signed by: TEO ZAMBRANO MD 08/17/201720 (BARBARA FERGUSON MD) Departure Communication (Admissions) 1952--SPOKE WITH DR. PRAJAPATI, [employer], HE ADVISES GIVING PT 1/2 NS, AND HE WILL SEE PT IN CONSULT 2001--SPOKE WITH DR. DIAZ, HOSPITALIST, ACCEPTS PT FOR ADMIT (LUIS ALBERTO GARCIA DO) Impression Primary Impression: Syncope Qualified Codes: R55 - Syncope and collapse Additional Impressions: Facial contusion Qualified Codes: S00.83XA - Contusion of other part of head, initial encounter Heart failure COPD Insulin dependent diabetes mellitus Chronic renal insufficiency Elevated troponin Disposition: ADMITTED INPATIENT Condition: Stable Admissions Decision to Admit Reason: Admit from ER (General) Decision to Admit/Date: Aug 17, 2020 Time/Decision to Admit Time: 19:50 (LUIS ALBERTO GARCIA DO) Departure-Patient Inst. Referrals: FORTINO LÓPEZ MD (PCP/Family) Primary Care Physician BARBARA FERGUSON MD Aug 17, 2020 16:59 LUIS ALBERTO GARCIA DO Aug 17, 2020 17:59
--- NOTE | 2020-08-17 17:10 | Diagnostic Imaging Report ---
INDICATION: Fell and hit head 10 days ago, chest pain. FINDINGS: Frontal view of the chest is unchanged from 06/08/2020. Mild cardiomegaly is stable. The vascularity is normal. Lungs are clear. No pleural effusion is present. IMPRESSION: There is stable mild cardiomegaly. Dictated by: Dictated on workstation # [id number]
--- NOTE | 2020-08-17 17:13 | Diagnostic Imaging Report ---
EXAMINATION: CT head, face and CT cervical spine without contrast. TECHNIQUE: Multiple contiguous axial images were obtained through the face, brain and cervical spine without the use of intravenous contrast. Sagittal and coronal reformations through the cervical spine were then performed. All CT scans use one or more of the following dose optimizing techniques: automated exposure control, MA and/or KvP adjustment based on patient size and exam type or iterative reconstruction. HISTORY: Fall onto head and face with pain. COMPARISON: None available. FINDINGS: HEAD: The ventricles and sulci are normal. No abnormal attenuation of brain parenchyma is present. No acute intracranial hemorrhage or abnormal extra-axial fluid collections are present. Calcification of the intracranial ICAs. No hyperdense vessel. The calvarium is intact. The mastoid air cells are clear. Mucosal thickening of the nasal sinuses. The orbits are normal. There is soft tissue swelling along the right infraorbital soft tissues. C-SPINE: Vertebral body height and alignment are preserved. No acute fracture, dislocation, or destructive osseous process. There is multilevel facet hypertrophy without perched facets. Multilevel cervical spondylosis. The paraspinous soft tissues are normal. The visualized thyroid gland is normal. The visualized lung apices are normal. FACE: No fracture is seen in the face. The nasal bones are normal. Mandible and maxillae are normal. Zygomatic arches are normal. Pterygoid plates are normal. There is right infraorbital facial soft tissue hematoma and swelling. IMPRESSION: 1. Right infraorbital facial soft tissue hematoma and swelling without underlying fracture. 2. No other acute intracranial abnormality. 3. Degenerative changes of the cervical spine without acute osseous abnormality. Dictated by: Dictated on workstation # [id number]
[2020-08-17 17:24] LABS: BILIRUBIN,URINE NEGATIVE (NEGATIVE); CLARITY,URINE CLEAR; COLOR,URINE YELLOW; GLUCOSE, URINE (UA) 2+ (NEGATIVE); KETONES,URINE NEGATIVE (NEGATIVE); LEUKOCYTE ESTERASE ,URINE NEGATIVE (NEGATIVE); NITRITE,URINE NEGATIVE (NEGATIVE); PROTEIN,URINE 3+ (NEGATIVE)
[2020-08-17 17:46] LABS: AMORPHOUS SEDIMENT,UR RARE AMOR URATES /LPF; BACTERIA,URINE TRACE /HPF; RBC,URINE 0-2 /HPF; WBC,URINE 0-2 /HPF
[2020-08-17 17:47] LABS: HYALINE CASTS, URINE 0-2 /LPF
[2020-08-17] MEDS: RT-ALBUTEROL INHALER HFA (VENTOLIN HFA) 18 GM IH SCH ×2 (18:19→22:37)
[2020-08-17 18:33] LABS: ABG OXYGEN SATURATION 98 % (94-100); ABG PCO2 50 MMHG (35-45); ABG PO2 86 MMHG (79-93); ABG TCO2 27.6 MMOL/L (21.0-31.0)
[2020-08-17 18:38] LABS: ABG PH 7.34 (7.37-7.43); ALLENS TEST YES-POS; INSPIRED O2 3; VENTILATOR NO
[2020-08-17 18:39] LABS: PATIENT TEMP 37
[2020-08-17 18:56] LABS: BASOPHILS % (AUTO) 0 % (0-10); EOSINOPHILS # (AUTO) 0.2 10^3/uL (0.0-0.3); EOSINOPHILS % (AUTO) 2 % (0-10); HEMATOCRIT 37 % (35-52); HEMOGLOBIN 11.9 g/dL (11.5-16.0); LYMPHOCYTES # (AUTO) 0.8 10^3/uL (1.0-4.0); LYMPHOCYTES % (AUTO) 11 % (12-44); MEAN CORPUSCULAR HEMOGLOBIN 30 pg (25-34); MEAN CORPUSCULAR HGB CONC 32 g/dL (32-36); MEAN CORPUSCULAR VOLUME 93 fL (80-99); MEAN PLATELET VOLUME 10.9 fL (9.0-12.2); MONOCYTES # (AUTO) 0.5 10^3/uL (0.0-1.0); MONOCYTES % (AUTO) 7 % (0-12); NEUTROPHILS # (AUTO) 5.7 10^3/uL (1.8-7.8); NEUTROPHILS % (AUTO) 79 % (42-75); PLATELET COUNT 133 10^3/uL (130-400); WHITE BLOOD COUNT 7.2 10^3/uL (4.3-11.0)
[2020-08-17 19:06] LABS: ALBUMIN 3.2 GM/DL (3.2-4.5)
[2020-08-17 19:07] LABS: POTASSIUM 4.1 MMOL/L (3.6-5.0)
[2020-08-17 19:08] LABS: CALCIUM 8.7 MG/DL (8.5-10.1)
[2020-08-17 19:11] LABS: BILIRUBIN,TOTAL 0.5 MG/DL (0.1-1.0)
[2020-08-17 19:13] LABS: CREATININE SERUM 1.54 MG/DL (0.60-1.30)
[2020-08-17 19:15] LABS: MAGNESIUM 1.9 MG/DL (1.6-2.4)
[2020-08-17 19:38] LABS: FREE T4 (FREE THYROXINE) 0.76 NG/DL (0.70-1.48)
[2020-08-17] MEDS ORDERED: ACETAMINOPHEN 500 MG TAB (TYLENOL) PO PRN (21:15)
[2020-08-17] MEDS ORDERED: diphenhydrAMINE 25 MG TAB (BENADRYL) PO PRN (21:15)
[2020-08-17] MEDS ORDERED: LOPERAMIDE 2 MG (IMODIUM) TABLET PO PRN (21:15)
[2020-08-17] MEDS ORDERED: HYDROcodone/APAP 5 MG/325 MG (LORTAB) TAB PO PRN (21:15)
[2020-08-17] MEDS ORDERED: ONDANSETRON 4 MG/2 ML (SDV) Z0FRAN IVP PRN ×2 (21:15→22:30)
[2020-08-17] MEDS ORDERED: CALCIUM CARBONATE 500 MG (TUMS) TAB.CHEW PO PRN (21:15)
[2020-08-17] MEDS ORDERED: ALPRAZolam 0.25 MG (XANAX) TAB PO PRN (21:15)
[2020-08-17] MEDS ORDERED: DOCUSATE SODIUM 100 MG (COLACE) CAP PO PRN (21:15)
[2020-08-17] MEDS ORDERED: MELATONIN 3 MG TABLET PO PRN (21:15)
[2020-08-17 22:00] VITALS: BP 165/76
[2020-08-17] MEDS ORDERED: morphine INJ 4 MG/ML 1 ML (VIAL/SYRINGE) IV PRN (22:30)
[2020-08-17] MEDS ORDERED: NITROGLYCERIN 0.4 MG SL TABS BTL 25'S SL PRN (22:30)
[2020-08-17] MEDS: 1/2 NS IV SOLUTION 1,000 ML IV SCH (22:32)
[2020-08-17 23:00] VITALS: BP 161/77
[2020-08-18] MEDS: RT-ALBUTEROL INHALER HFA (VENTOLIN HFA) 18 GM IH SCH ×3 (01:56→09:58)
[2020-08-18 03:59] LABS: BASOPHILS % (AUTO) 0 % (0-10); EOSINOPHILS # (AUTO) 0.2 10^3/uL (0.0-0.3); EOSINOPHILS % (AUTO) 3 % (0-10); HEMATOCRIT 37 % (35-52); HEMOGLOBIN 11.6 g/dL (11.5-16.0); LYMPHOCYTES # (AUTO) 0.7 10^3/uL (1.0-4.0); LYMPHOCYTES % (AUTO) 10 % (12-44); MEAN CORPUSCULAR HEMOGLOBIN 30 pg (25-34); MEAN CORPUSCULAR HGB CONC 32 g/dL (32-36); MEAN CORPUSCULAR VOLUME 94 fL (80-99); MEAN PLATELET VOLUME 11.1 fL (9.0-12.2); MONOCYTES # (AUTO) 0.5 10^3/uL (0.0-1.0); MONOCYTES % (AUTO) 7 % (0-12); NEUTROPHILS % (AUTO) 80 % (42-75); PLATELET COUNT 122 10^3/uL (130-400); WHITE BLOOD COUNT 7.5 10^3/uL (4.3-11.0)
[2020-08-18 04:00] VITALS: BP 146/63
[2020-08-18 04:07] LABS: ALBUMIN 3.2 GM/DL (3.2-4.5); POTASSIUM 3.9 MMOL/L (3.6-5.0)
[2020-08-18 04:08] LABS: CALCIUM 8.8 MG/DL (8.5-10.1)
[2020-08-18 04:10] LABS: TOTAL PROTEIN 6.7 GM/DL (6.4-8.2)
[2020-08-18 04:12] LABS: BILIRUBIN,TOTAL 0.4 MG/DL (0.1-1.0)
[2020-08-18 04:13] LABS: CREATININE SERUM 1.57 MG/DL (0.60-1.30)
--- NOTE | 2020-08-18 06:28 | History & Physical-Hospitalist ---
History of Present Illness Date Seen 08/18/20 Attending Physician Brenda Bueno DO PCP Bear Menon MD Referring Physician Date of Admission Aug 17, 2020 at 19:55 Home Medications & Allergies Home Medications Reviewed patient Home Medication Reconciliation performed by pharmacy medication reconciliations biometrics technician and/or nursing. Patients Allergies have been reviewed. Allergies Allergies Uncoded Allergies Beta bernard ( Adverse Reaction, Unknown, 2.4 second pause (07/2018), 05/16/19) Past Srqvyub-Xfcsqt-Gepshw Hx Patient Social History Tobacco Use?: Yes Tobacco type used: Cigarettes Smoking Status: Current Everyday Smoker Use of E-Cig and/or Vaping dev: No Substance use?: No Alcohol Use?: No Pt feels they are or have been: No Immunizations Up To Date Date of Influenza Vaccine: Nov 18, 2019 Date of Pneumonia Vaccine: Mar 09, 2016 Seasonal Allergies Seasonal Allergies: No Current Status status: No status: No Advance Directives: No Communicates: Verbally Primary Language: Greenlandic Preferred Spoken Language: Greenlandic Is interpretation needed?: No Past Medical History Surgeries: Coronary Stent, Hysterectomy Coronary Artery Disease, Heart Attack, High Cholesterol, Peripheral Vascular Neuropathy Sexually Transmitted Disease: No HIV/AIDS: No Gastroesophageal Reflux Hypothyroidsim, Diabetes, Non-Insulin dep Psoriasis Blood Disorders: No Adverse Reaction/Blood Tranf: No Family Medical History Completed stroke 19 FATHER Diabetes mellitus 19 FATHER G8 BROTHER G8 SISTER No Pertinent Family Hx Physical Exam Physical Exam Vital Signs Vital Signs - First Documented 08/17/20 08/17/20 15:50 18:19 Temp 37.3 Pulse 82 Resp 18 B/P (MAP) 187/83 (117) Pulse Ox 92 O2 Delivery Room Air O2 Flow Rate 3.00 Capillary Refill : Less Than 3 Seconds Height, Weight, BMI Height: 5'2.00" Weight: 179lbs. 5.0oz. 81.041241cn; 38.69 BMI Method:Stated Results Results/Procedures Labs Laboratory Tests 08/17/20 18:45 08/18/20 03:45 Patient resulted labs reviewed. BRENDA BUENO DO Aug 18, 2020 06:28
[2020-08-18] MEDS: inSUlin ASPART (NovoLOG) 1 UNIT/0.01 ML (CHARGE PER UNIT) SC SCH ×2 (06:38→11:40)
[2020-08-18 08:00] VITALS: BP 156/78
[2020-08-18] MEDS: 1/2 NS IV SOLUTION 1,000 ML IV SCH (08:43)
[2020-08-18] MEDS ORDERED: ASPIRIN E.C. 81 MG (ECOTRIN) TAB PO SCH (09:00)
[2020-08-18] MEDS ORDERED: polyethylene glycoL POWDER 17 GM (MIRALAX) PACK PO SCH (09:00)
[2020-08-18] MEDS ORDERED: SENNA W/DOCUSATE (SENOKOT S) TABLET PO SCH (09:00)
--- NOTE | 2020-08-18 11:14 | Consultation-Cardiology ---
HPI-Cardiology Cardiology Consultation: Date of Consultation 08/18/20 Date of Admission Attending Physician Brenda Bueno DO Admitting Physician Bear Menon MD Consulting Physician SVITLANA PRAJAPATI JR, MD HPI: Time Seen by a Provider: 11:09 Chief Complaint: Reason for consultation: Coronary artery disease with unstable angina. I had the pleasure of seeing Radha on the cardiac stepdown unit at [facility] [place] this morning. She has an extensive past cardiac history including coronary artery disease with previous coronary stents, cardiomyopathy with chronic systolic heart failure, paroxysmal atrial fibrillation, essential hypertension, hyperlipidemia, type 2 diabetes mellitus with complications, cigarette smoking, stage III chronic kidney disease, and obesity among several other less clinically significant issues. She had seen her primary provider back in June or July for a routine follow-up and apparently there was some new EKG changes on her EKG at that time. She was then referred back to our office as an outpatient and underwent a stress test that showed extensive areas of infarct as well as some mixed zones of ischemia with severe left ventricular dysfunction. She has subsequently underwent a viability study which showed some areas of viability. She came back to the office this week but there was some confusion about which doctor she was seeing and she came on Thursday and ended up going home without being seen. She came back to the office yesterday and because of a recent syncopal spell, she was admitted to the hospital for further evaluation. She has recently been having difficulties with falling out of bed. She does not recall the events. She actually put some sideboards on her bed and this is help ing. However, approximately 2 weeks ago she was sleeping and started to fall out of bed. She can remember waking up and seeing the floor and then hit her face on the floor and passed out. She woke up a short while later and was able to get herself back into bed. She denies any recurrent syncope since that time. She does have some dyspnea on exertion well moving about her house. She denies dyspnea at rest. She denies any significant chest discomfort. She denies paroxysmal nocturnal dyspnea, orthopnea, palpitations, or lower extremity edema. When she was admitted to the hospital last evening, she was found to have a slightly elevated troponin level and a cardiology consultation was requested. This morning she states she is feeling well and would like to know if she can go home. Abbie Rebolledo smokes approximately reds per day and previously smoked up to 2 packs of cigarettes per day. I should also note, when she was found to have the cardiomyopathy and ischemia noted on her stress test, Dr. Willoughby ordered a LifeVest. This finally got approved yesterday and the company representatives fitted the patient for the LifeVest yesterday while she was in the emergency room. Review of Systems-Cardiology Review of Systems : No Other comments Review of 10 organ systems is as per the history of present illness, otherwise negative. GSB-[id number]-Nmhrlx Hx Patient Social History Smoking Status: Current Everyday Smoker 2nd Hand Smoke Exposure: No Have you traveled recently?: No Alcohol Use?: No Pt feels they are or have been: No Tobacco type used: Cigarettes Immunizations Up To Date Date of Pneumonia Vaccine: Mar 09, 2016 Date of Influenza Vaccine: Nov 18, 2019 Past Medical History PMH As described under Assessment. Family Medical History Family Medical History: She reports her father and sister both had CAD with [place] between ages 40-60. Family History: Completed stroke 19 FATHER Diabetes mellitus 19 FATHER G8 BROTHER G8 SISTER Allergies and Home Medications Allergies Uncoded Allergies: Beta bernard (Adverse Reaction, Unknown, 2.4 second pause (07/2018), 05/16/19) Home Medications Albuterol Sulfate 6.7 Gm Hfa.aer.ad, 2 PUFF INH Q6H Prescribed by: CAROLINA ALMEIDA on 06/15/19 0015 Atorvastatin Calcium 40 Mg Tablet, 40 MG PO HS, (Reported) Baclofen 10 Mg Tablet, 10 MG PO BID PRN for muscle spasm/pain Prescribed by: LUCINDA WANG on 02/26/20 2220 Cephalexin 500 Mg Tablet, 500 MG PO QID Prescribed by: HAM FERNÁNDEZ on 01/05/20 0906 Clopidogrel Bisulfate 75 Mg Tablet, 75 MG PO DAILY, (Reported) Gabapentin 300 Mg Capsule, 300 MG PO BID, (Reported) Hydrocodone/Acetaminophen 1 Each Tablet, 1 EACH PO Q6H PRN for PAIN-SEVERE (8- 10) Prescribed by: LUCINDA WANG on 02/26/20 2220 Insulin Detemir 100 Unit/1 Ml Insuln.pen, 30 UNIT SQ BID Prescribed by: DIANNA CARTWRIGHT on 09/27/19 1014 Insulin Lispro 100 Unit/1 Ml Insuln.pen, 10 UNIT SQ TIDWM Prescribed by: DIANNA CARTWRIGHT on 09/27/19 1217 Isosorbide Mononitrate 60 Mg Tab, 60 MG PO DAILY, (Reported) Levothyroxine Sodium 88 Mcg Tablet, 88 MCG PO DAILY, (Reported) Lisinopril 40 Mg Tablet, 40 MG PO DAILY Prescribed by: DIANNA CARTWRIGHT on 09/27/19 1014 Multivitamin 1 Each Tablet, 1 EACH PO DAILY, (Reported) Nitroglycerin 0.4 Mg Tab.subl, 0.4 MG SL UD PRN for CHEST PAIN, (Reported) [place] 3 Polyunsat Fatty Acids 1,000 Mg Cap, 1,000 MG PO BID, (Reported) Rivaroxaban 20 Mg Tablet, 20 MG PO DAILY Prescribed by: DIANNA CARTWRIGHT on 09/27/19 1014 Patient Home Medication List Home Medication List Reviewed: Yes Physical Exam-Cardiology Physical Exam Vital Signs/I&O 08/18/20 08/18/20 08/18/20 08/18/20 00:00 01:00 01:56 02:05 Temp 36.6 Pulse 80 Pulse Ox 93 O2 Delivery Nasal Cannula Nasal Cannula O2 Flow Rate 3.00 3.00 08/18/20 08/18/20 08/18/20 08/18/20 03:33 04:00 06:05 06:50 Temp 36.8 Pulse 77 Resp 17 B/P (MAP) 146/63 (90) Pulse Ox 93 99 O2 Delivery Room Air Nasal Cannula Nasal Cannula O2 Flow Rate 3.00 3.00 08/18/20 08/18/20 08/18/20 07:00 08:00 09:58 Temp 36.1 Pulse 74 71 Resp 24 B/P (MAP) 156/78 (113) Pulse Ox 93 O2 Delivery Room Air Room Air Capillary Refill : Less Than 3 Seconds Constitutional: other (She is alert and oriented x3. She appears well- nourished and appears her stated age.) HEENT: other (She has ecchymoses along the right side of her face from her jaw up to her right eye. Extraocular movements are intact. There are no xanthelasma. Sclera are clear.) Neck: non-tender, full range of motion, supple, normal inspection, carotid pulses are 2 + bilaterally, with good upstrokes Respiratory: other (Good respiratory effort with diffuse inspiratory wheezes bilaterally.) Cardiovascular: regular rate-rhythm, S1 and S2, other (No murmurs, rubs or gallops appreciated.) Gastrointestinal: other (The abdomen is soft, nontender and nondistended.) Rectal: deferred Extremities: normal range of motion, non-tender, normal inspection, no lower extremity edema bilateral Neurologic/Psychiatric: normal mood/affect, other (The patient is alert and oriented x3. Cranial nerves III through XII are grossly intact. The patient has good motor tone and strength in the upper and lower extremities bilaterally.) Data Review Labs Laboratory Tests 08/17/20 17:16: Urine Color YELLOW, Urine Clarity CLEAR, Urine pH 6.0, Urine Specific [place] 1.025H, Urine Protein 3+H, Urine Glucose (UA) 2+H, Urine Ketones NEGATIVE, Urine Nitrite NEGATIVE, Urine Bilirubin NEGATIVE, Urine Urobilinogen 1.0, Urine Leukocyte Esterase NEGATIVE, Urine RBC (Auto) 1+H, Urine RBC 0-2, Urine WBC 0-2, Urine Crystals PRESENTH, Urine Amorphous Sediment RARE YEISON URATESH, Urine Bacteria TRACE, Urine Casts PRESENT, Urine Hyaline Casts 0-2H, Urine Mucus NEGATIVE, Urine Culture Indicated NO 08/17/20 18:29: Blood Gas Puncture Site R BRACH, Blood Gas Patient Temperature 37, Arterial Blood pH 7.34*L, Arterial Blood Partial Pressure CO2 50H, Arterial Blood Partial Pressure O2 86, Arterial Blood HCO3 26, Arterial Blood Total CO2 27.6, Arterial Blood Oxygen Saturation 98, Arterial Blood Base Excess 1.0, [place] Test YES-POS, Blood Gas Ventilator Setting NO, Blood Gas Inspired Oxygen 3 08/17/20 18:45: White Blood Count 7.2, Red Blood Count 3.95, Hemoglobin 11.9, Hematocrit 37, Mean Corpuscular Volume 93, Mean Corpuscular Hemoglobin 30, Mean Corpuscular Hemoglobin Concent 32, Red Cell Distribution Width 14.4, Platelet Count 133, Mean Platelet Volume 10.9, Immature Granulocyte % (Auto) 1, Neutrophils (%) (Auto) 79H, Lymphocytes (%) (Auto) 11L, Monocytes (%) (Auto) 7, Eosinophils (%) (Auto) 2, Basophils (%) (Auto) 0, Neutrophils # (Auto) 5.7, Lymphocytes # (Auto) 0.8L, Monocytes # (Auto) 0.5, Eosinophils # (Auto) 0.2, Basophils # (Auto) 0.0, Immature Granulocyte # (Auto) 0.0, Prothrombin Time 14.0, INR Comment 1.0, Activated Partial Thromboplast Time 36H, Sodium Level 137, Potassium Level 4.1, Chloride Level 102, Carbon Dioxide Level 23, Anion Gap 12, Blood Urea Nitrogen 23H, Creatinine 1.54H, Estimat Glomerular Filtration Rate 34, BUN/Creatinine Ratio 15, Glucose Level 287H, Calcium Level 8.7, Corrected Calcium 9.3, Magnesium Level 1.9, Total Bilirubin 0.5, Aspartate Amino Transf (AST/SGOT) 16, Alanine Aminotransferase (ALT/SGPT) 15, Alkaline Phosphatase 86, Myoglobin 124 .9H, Troponin I 0.078H, B-Type Natriuretic Peptide 910.0H, Total Protein 7.0, Albumin 3.2, Thyroid Stimulating Hormone (TSH) 13.36H, Free Thyroxine 0.76 08/18/20 03:45: White Blood Count 7.5, Red Blood Count 3.92, Hemoglobin 11.6, Hematocrit 37, Mean Corpuscular Volume 94, Mean Corpuscular Hemoglobin 30, Mean Corpuscular Hemoglobin Concent 32, Red Cell Distribution Width 14.6H, Platelet Count 122L, Mean Platelet Volume 11.1, Immature Granulocyte % (Auto) 0, Neutrophils (%) (Auto) 80H, Lymphocytes (%) (Auto) 10L, Monocytes (%) (Auto) 7, Eosinophils (%) (Auto) 3, Basophils (%) (Auto) 0, Neutrophils # (Auto) 6.0, Lymphocytes # (Auto) 0.7L, Monocytes # (Auto) 0.5, Eosinophils # (Auto) 0.2, Basophils # (Auto) 0.0, Immature Granulocyte # (Auto) 0.0, Sodium Level 137, Potassium Level 3.9, Chloride Level 102, Carbon Dioxide Level 24, Anion Gap 11, Blood Urea Nitrogen 21H, Creatinine 1.57H, Estimat Glomerular Filtration Rate 33, BUN/Creatinine Ratio 13, Glucose Level 326H, Calcium Level 8.8, Corrected Calcium 9.4, Total Bilirubin 0.4, Aspartate Amino Transf (AST/SGOT) 15, Alanine Aminotransferase (ALT/SGPT) 14, Alkaline Phosphatase 84, Troponin I 0.072H, Total Protein 6.7, Albumin 3.2, Triglycerides Level 198H, Cholesterol Level 142, LDL Cholesterol Direct 80, VLDL Cholesterol 40, HDL Cholesterol 32L ECG Impression ECG Comment Electrocardiogram from this morning shows sinus rhythm with nonspecific intraventricular conduction delay and nonspecific T wave changes in the inferolateral leads. Electrocardiogram from last evening shows sinus rhythm with nonspecific intraventricular conduction delay and T wave inversion in the inferolateral leads. A/P-Cardiology Assessment/Admission Diagnosis Coronary artery disease with unstable angina. She is presently pain-free. From her description, she has not been having any recent chest pain but on admission had a slightly elevated troponin level. This has been trending downwards. She does have a known ischemic defect on a recent nuclear stress test. She did have some dynamic changes on her electrocardiogram last evening but these have now resolved. She is on clopidogrel, long-acting nitrates and statin medication. She is not on aspirin because she takes rivaroxaban for the atrial fibrillation. At this point in time, I would not be opposed to having her be discharged to home and our office can arrange for an outpatient cardiac catheterization. If she develops recurrent symptoms after discharge, she needs to come back to the hospital and we can perform an inpatient cardiac catheterization. Of note, she is not on beta-bernard due to an allergy. Elevated troponin. This is in the setting of chronic kidney disease and a recent fall. I suspect this is noncardiac elevation of the troponin and does not represent an acute myocardial infarction. Syncope. Unclear whether or not the patient has been having syncope or just falling out of bed at night. She now has a LifeVest in place and we can use this to monitor for arrhythmias as well as treat her for any life-threatening arrhythmias such as sustained ventricular tachycardia or ventricular fibrillation. Paroxysmal atrial fibrillation. She is in a sinus rhythm. We will continue her Rivaroxaban for stroke prophylaxis. Cardiomyopathy. Most likely ischemic. We will proceed as above. Her lisinopril needs to be resumed. She is allergic to beta-bernard. Given her chronic kidney disease, she is not an ideal candidate for an aldosterone antagonist. She now has a LifeVest in place for primary prevention of sudden cardiac . Chronic systolic heart failure. Her chest x-ray was clear. I suspect the good portion of her shortness of breath is due to her cigarette smoking and possibly some underlying chronic obstructive pulmonary disease. Continue lisinopril as above. She is allergic to beta-blockers. No aldosterone antagonist due to the chronic kidney disease. Disposition. As above, from a cardiac standpoint, I do not see any reason why she cannot be discharged home at this point in time. I will have our office arrange for an outpatient cardiac catheterization with her regular weight control engineer. Thank you for the courtesy of this consultation. Plan See above SVITLANA PRAJAPATI JR, MD Aug 18, 2020 11:14
[2020-08-18 12:00] VITALS: BP 169/70
--- NOTE | 2020-08-18 12:20 | Short Stay Summary-Hospitalist ---
History of Present Illness HPI/Chief Complaint Chief complaint: Syncope History of present illness: This is a 65-year-old white female who has a known history of cardiomyopathy who presented with syncopal episode was found to have elevated troponin due to a type II UT she was fitted for a LifeVest and then cardiology evaluated all medications and patient was discharged in improved condition. Source: patient, family, RN/MD, old records Date Seen 08/18/20 Time Seen by a Provider: 11:00 Attending Physician Brenda Bueno DO PCP Self,Bear INGRAM Referring Physician Date of Admission Aug 17, 2020 at 19:55 Home Medications & Allergies Home Medications Reviewed patient Home Medication Reconciliation performed by pharmacy medication reconciliations pharmacy technician assistant and/or nursing. Patients Allergies have been reviewed. Allergies Allergies Uncoded Allergies Beta bernard ( Adverse Reaction, Unknown, 2.4 second pause (07/2018), 05/16/19) Past Rrkxfhp-Fqctsg-Avjzog Hx Patient Social History Marrital Status: (Okay) Employed/Student: unemployed (Normal bone you will) Tobacco Use?: Yes Tobacco type used: Cigarettes Smoking Status: Current Everyday Smoker Use of E-Cig and/or Vaping dev: No Substance use?: No Alcohol Use?: No Pt feels they are or have been: No Immunizations Up To Date Date of Influenza Vaccine: Nov 18, 2019 Date of Pneumonia Vaccine: Mar 09, 2016 Seasonal Allergies Seasonal Allergies: No Current Status status: No status: No Advance Directives: No Communicates: Verbally Primary Language: Surinamese Preferred Spoken Language: Surinamese Is interpretation needed?: No Past Medical History Surgeries: Coronary Stent, Hysterectomy Cardiomyopathy (Vitals 116 crispies), Coronary Artery Disease, Heart Attack, High Cholesterol, Peripheral Vascular Neuropathy Sexually Transmitted Disease: No HIV/AIDS: No Gastroesophageal Reflux Hypothyroidsim, Diabetes, Non-Insulin dep Psoriasis Blood Disorders: No Adverse Reaction/Blood Tranf: No Family Medical History Completed stroke 19 FATHER Diabetes mellitus 19 FATHER G8 BROTHER G8 SISTER No Pertinent Family Hx Review of Systems Constitutional: see HPI, dizziness, malaise, weakness Physical Exam Physical Exam Vital Signs Vital Signs - First Documented 08/17/20 08/17/20 15:50 18:19 Temp 37.3 Pulse 82 Resp 18 B/P (MAP) 187/83 (117) Pulse Ox 92 O2 Delivery Room Air O2 Flow Rate 3.00 Capillary Refill : Less Than 3 Seconds Height, Weight, BMI Height: 5'2.00" Weight: 179lbs. 5.0oz. [id number]; 38.69 BMI Method:Stated General Appearance: No Apparent Distress, WD/WN, Chronically ill HEENT: PERRL/EOMI, Pharynx Normal, Other (Indurated contusion on the right maxillary region with ecchymosis extending down to the submandibular area on the right. Extraocular movements intact.) Neck: Normal Inspection, Non Tender Respiratory: No Accessory Muscle Use, No Respiratory Distress, Wheezing Cardiovascular: Regular Rate, Rhythm, No Edema, No Murmur Extremity: Normal Inspection, No Pedal Edema Neurologic/Psychiatric: Alert, Oriented x3, No Motor/Sensory Deficits, Normal Mood/Affect, photo colorer II-XII Norm as Tested, Other (Appears a bit somnolent) Skin: Normal Color, Warm/Dry, Ecchymosis Results Results/Procedures Labs Laboratory Tests 08/18/20 03:45 Patient resulted labs reviewed. Short Stay Diagnosis Discharge Diagnosis-Short Stay Admission Diagnosis Syncope Cardiomyopathy LifeVest required Final Discharge Diagnosis Syncope Cardiomyopathy LifeVest required Conclusion Plan Discharge home Diagnosis/Problems Diagnosis/Problems (1) Chronic systolic (congestive) heart failure Status: Chronic (2) Syncope Status: Acute Qualifiers: Qualified Codes: R55 - Syncope and collapse (3) Insulin dependent diabetes mellitus Status: Chronic (4) Elevated troponin Status: Acute (5) Chronic renal insufficiency Status: Acute (6) Type 2 diabetes mellitus with complication Status: Chronic (7) Troponin level elevated Status: Acute BRENDA BUENO DO Aug 18, 2020 12:20
[2020-08-18] MEDS ORDERED: ASPI-1238 PO (12:21)
--- NOTE | 2020-08-22 08:07 | Physician Query Clarification ---
PQ-Further Specificity Admission/Discharge Admission Date: Aug 17, 2020 at 19:55 Discharge Date: Aug 18, 2020 at 13:25 Dr. Bueno, The medical record reflects the following clinical scenario: History/Risk Factors: syncope, ICM, RI type 2, HTN w/chronic systolic CHF/CKD-3 Clinical Findings: Troponin 0.078, BNP 910.0, EF 30 - 35% Treatment: fitted with life vest, IVF Question: Can you further specify the etiology of the syncope per the clinical indicators above? Please document a response in the Progress Notes or Discharge Summary. 1. ischemic cardiomyopathy 2. HTN w/chronic systolic CHF 3. CAD w/unstable angina 4. Syncope etiology undetermined 5. Other, with explanation of the clinical findings. 6. Clinically undetermined, no explanation for the clinical findings. PHYSICIAN RESPONSE Can you specify per above: 1 Please remember a lack of response to the above will prompt a phone page by CDI/Coding staff. In responding to this query, please exercise your independent professional judgment. The purpose of this communication is to more accurately reflect the complexity of your patients condition. The fact that a question is asked does not imply that any particular answer is desired or expected. Thank you for your timely response to this clarification. Requestors name: Maik THIS PHYSICIAN QUERY FORM IS A PERMANENT PART OF THE MEDICAL RECORD MAIK MCKEON Aug 22, 2020 08:07 ORIANA BUENO DO Aug 22, 2020 10:36
== END 2020-08-18 13:25 | disposition home or self-care (01) | DRG 281 ==
LOC: EDUNIT# 15:00 → ER 15:02 → CSD 19:55
PROVIDERS: ADMIT Internal Medicine; ATTEND Internal Medicine
DX: I25.5 Ischemic cardiomyopathy (principal); I21.A1 Myocardial infarction type 2; I13.0 Hypertensive heart and chronic kidney disease with heart failure and stage 1 through stage 4 chronic kidney disease, or unspecified chronic kidney disease; I50.22 Chronic systolic (congestive) heart failure; I25.110 Atherosclerotic heart disease of native coronary artery with unstable angina pectoris; E11.22 Type 2 diabetes mellitus with diabetic chronic kidney disease; E11.65 Type 2 diabetes mellitus with hyperglycemia; N18.30 Chronic kidney disease, stage 3 unspecified; J44.9 Chronic obstructive pulmonary disease, unspecified; E11.40 Type 2 diabetes mellitus with diabetic neuropathy, unspecified; I48.0 Paroxysmal atrial fibrillation; S00.83XA Contusion of other part of head, initial encounter; F17.210 Nicotine dependence, cigarettes, uncomplicated; E78.00 Pure hypercholesterolemia, unspecified; E78.5 Hyperlipidemia, unspecified; K21.9 Gastro-esophageal reflux disease without esophagitis; E03.9 Hypothyroidism, unspecified; E66.9 Obesity, unspecified; I25.2 Old myocardial infarction; Z79.4 Long term (current) use of insulin; Z95.5 Presence of coronary angioplasty implant and graft; Z68.38 Body mass index [BMI] 38.0-38.9, adult; Z99.81 Dependence on supplemental oxygen; Z79.2 Long term (current) use of antibiotics; Z79.01 Long term (current) use of anticoagulants; Z83.3 Family history of diabetes mellitus; Z88.8 Allergy status to other drugs, medicaments and biological substances; W06.XXXA Fall from bed, initial encounter; Y92.003 Bedroom of unspecified non-institutional (private) residence as the place of occurrence of the external cause
CPT/HCPCS: 36415; 70450; 70486; 71045; 72125; 80053; 80061; 81000; 82805; 82947; 83735; 83874; 83880; 84439; 84443; 84484; 85025; 85610; 85730; 93005; 93041; 94640; 94760

== ENCOUNTER 2020-09-04 15:00 | Day surgery (SDC) | payer SELFPAY ==
[2020-09-04] VITALS (12 sets, daily range): BP systolic 150–166; BP diastolic 66–84
[~2020-09-04] VITALS: Ht 157 cm; Wt 84.0 kg
[2020-09-04 13:23] LABS: HEMATOCRIT 39 % (35-52); HEMOGLOBIN 12.9 g/dL (11.5-16.0); MEAN CORPUSCULAR HEMOGLOBIN 30 pg (25-34); MEAN CORPUSCULAR HGB CONC 33 g/dL (32-36); MEAN CORPUSCULAR VOLUME 92 fL (80-99); MEAN PLATELET VOLUME 10.7 fL (9.0-12.2); PLATELET COUNT 164 10^3/uL (130-400)
[2020-09-04 13:37] LABS: INR 0.9 (0.8-1.4); PROTHROMBIN TIME PATIENT 12.7 SEC (12.2-14.7)
[2020-09-04 13:42] LABS: ALBUMIN 3.4 GM/DL (3.2-4.5); BILIRUBIN,TOTAL 0.4 MG/DL (0.1-1.0); CALCIUM 9.6 MG/DL (8.5-10.1); CREATININE SERUM 1.67 MG/DL (0.60-1.30); POTASSIUM 4.1 MMOL/L (3.6-5.0); TOTAL PROTEIN 7.1 GM/DL (6.4-8.2)
[~2020-09-04 15:00] MED LIST changes: +GBPN600T PO; +LISI1TAB46 PO; +NS IV 1000 ML 1,000 ML IV SCH
--- NOTE | 2020-09-04 15:42 | Cardiac Procedure Note-CS/ASA ---
Pre-Procedure Note Pre-Op Procedure Note H&P Reviewed The H&P was reviewed, patient examined and no changes noted. Date H&P Reviewed: Sep 04, 2020 Time H&P Reviewed: 15:00 Conscious Sedation Pre-Proced Time 15:00 ASA Score 3 For ASA 3 and 4: Consider anesthesia and medical clearance. Also, for patients with a history of failed moderate sedation consider anesthesia. Airway Lungs Heart ASA score ASA 1: a normal healthy patient ASA 2: a patient with a mild systemic disease (mid diabetes, controlled hypertension, obesity ASA 3: a patient with a severe systemic disease that limits activity (angina, COPD, prior Myocardial infarction) ASA 4: a patient with an incapacitating disease that is a constant threat to life (CHF, renal failure) ASA 5: a moribund patient not expected to survive 24 hrs. (ruptured aneurysm) ASA 6: a declared brain- patient whose organs are being harvested. For emergent operations, add the letter E after the classification Mallampati Classification Grade 2 Sedation Plan Analgesia, Amnesia, Plan communicated to team members, Discussed options with patient/fam, Discussed risks with patient/fam The patient is an appropriate candidate to undergo the planned procedure, sedation, and anesthesia. The patient immediately re-assessed prior to indication. JOSE MIGUEL ALCALA MD FACP FAC [facility]S Sep 04, 2020 15:42
[2020-09-04] MEDS ORDERED: PATIENT MAY USE OWN MEDS, ALL PO SCH (15:45)
[2020-09-04] MEDS ORDERED: NS IV 1000 ML 1,000 ML IV SCH (15:45)
--- NOTE | 2020-09-04 15:47 | Discharge Inst-Cardiology ---
Discharge Inst-Cardiac Discharge Medications Continued Medications: Albuterol Sulfate (Proventil Hfa) 6.7 Gm Hfa.aer.ad 2 PUFF INH Q6H for SHORTNESS OF BREATH, #1 EACH 1 Refill Aspirin (Aspirin EC) 81 Mg Tablet.dr 81 MG PO DAILY, #30 TAB Atorvastatin Calcium (Atorvastatin Calcium) 40 Mg Tablet 40 MG PO HS, TAB Gabapentin (Gabapentin) 600 Mg Tablet 600 MG PO TID, TAB Insulin Detemir (Levemir Flextouch) 100 Unit/1 Ml Insuln.pen 30 UNIT SQ BID for 30 Days, #20 EA Insulin Lispro (Humalog Kwikpen) 100 Unit/1 Ml Insuln.pen 10 UNIT SQ TIDWM for 30 Days, #10 EA Isosorbide Mononitrate (Isosorbide Mononitrate ER) 60 Mg Tab 60 MG PO DAILY, TAB Levothyroxine Sodium (Levothyroxine Sodium) 88 Mcg Tablet 88 MCG PO DAILY, TAB Lisinopril/Hydrochlorothiazide (Lisinopril-Hctz 20-12.5 mg Tab) Unknown Strength Tablet Unknown Dose PO DAILY, TAB Nitroglycerin (Nitroglycerin) 0.4 Mg Tab.subl 0.4 MG SL UD PRN for CHEST PAIN, TAB [place] 3 Polyunsat Fatty Acids (Fish Oil 1,000 mg Capsule) 1,000 Mg Cap 1000 MG PO BID, CAP Rivaroxaban (Xarelto) 20 Mg Tablet 20 MG PO DAILY for 90 Days, #90 TAB 0 Refills Discontinued Medications: Clopidogrel Bisulfate (Plavix) 75 Mg Tablet 75 MG PO DAILY, TAB JOSE MIGUEL ALCALA MD [facility] Sep 04, 2020 15:47
--- NOTE | 2020-09-04 15:50 | Discharge Inst-Post CATH ---
Discharge Inst-CATH/EP Post Cardiac Cath/EP D/C Inst Follow Up/Plan Remove groin dressing tomorrow F/u at Dr Buenrostro's in 1-2 week ACTIVITY * Go Home directly and rest. * Limit activity of the leg (or wrist if it was used) for 7 days including aerobics, swimming, jogging, bicycling, etc. * Restrict stair-climbing for 7 days if possible, if not, climb up with your non-cath leg, then bring together on the same step. * Avoid lifting, pushing, pulling or excessive movement of the affected extremity for 7 days. * Customary sexual activity may be resumed after 2 days-use caution not to use a position that strains or causes pain to the affected extremity. * No driving for 24 hours. * NO SMOKING. * Avoid straining for bowel movements for 7 days. * Gentle walking on level ground is allowed. * Returning to work will depend on the type of procedure and the results. Your doctor will discuss this with you. CALL YOUR DOCTOR FOR ANY OF THE FOLLOWING: *If bleeding from the puncture site occurs- Apply gentle pressure to site with clean cloth and call your doctor or EMS. * If a knot or lump forms under the skin, increases in size, or causes pain. * If bruising appears to be worsening or moving further down your leg instead of disappearing. * Temperature above 101 F. CARE OF YOUR GROIN INCISION; * Bruising or purple discoloration of the skin near the puncture site is common. * You may shower only, no bathtub bathing for 5 days. Be careful to avoid slipping as your leg may feel stiff. * If a closure device was used on your femoral artery, please see the attached guide regarding care of the device and your leg. * Leave dressing on FOR 24 hours. CARE OF YOUR WRIST INCISION; * Bruising or purple discoloration of the skin near the puncture site is common. * You may shower. * DO NOT submerge wrist. * Leave dressing on FOR 24 hours. JOSE MIGUEL BUENROSTRO MD FACP [facility]AC [facility] Sep 04, 2020 15:50
--- NOTE | 2020-09-04 16:58 | CARDIAC CATHETERIZATION ---
DATE OF SERVICE: 09/04/2020 CARDIAC CATHETERIZATION REPORT The patient is a 65-year-old lady, who has a history of coronary artery disease. She recently underwent myocardial perfusion imaging by Dr. Willoughby and was found to have a dilated left ventricle with ischemia in the anterior wall and also significant ischemia in the inferior wall. Cardiac catheterization was carried out after having obtained an informed consent. DESCRIPTION OF PROCEDURE: She was brought to the cardiac catheterization laboratory in a fasting state. The right groin was prepared and draped in the usual sterile fashion. Lidocaine 1% was used for local anesthesia. Modified Seldinger technique was used to advance a 5-Nepali sheath in right femoral artery. A 5-Nepali JL4 catheter was used for left coronary angiography, 5-Nepali JR4 catheter for right coronary angiography, 5-Nepali pigtail catheter was used for left heart catheterization. Left ventricular angiography was not performed. This was to conserve contrast, given the patient's renal insufficiency. Angiography of the right femoral artery was carried out through the sheath. Manual pressure was used to achieve hemostasis because the site of sheath insertion did not appear suitable for device closure. She tolerated the procedure well. HEMODYNAMICS: Left ventricular end-diastolic pressure following coronary angiography was 27 mmHg. There is no significant pressure gradient on pullback across the aortic valve. Ascending aortic pressure was 169/66 with a mean of 102 mmHg. CORONARY ANGIOGRAPHY: Left main coronary artery does not exhibit significant stenosis. Left anterior descending artery has a patent stent in its proximal portion. This is known to be a drug-eluting stent measuring 3 x 24 and was placed in 01/2018 in [place], [place]. The left coronary system has diffuse mild to moderate disease. Left circumflex artery does not exhibit significant stenosis. Right coronary artery is occluded at its ostium and there is collateralization of the right coronary from the left coronary system. LEFT VENTRICULAR ANGIOGRAPHY: Left ventricular angiography was not performed. CONCLUSIONS: 1. Diffuse qcox-av-fbhkmsky disease of the left coronary system without significant focal stenoses. There is a patent stent in the proximal left anterior descending that is known to be a drug-eluting stent measuring 3.0 x 24 mm and that was placed in 01/2018 in [place], [place]. The right coronary artery is chronically occluded at its ostium and is collateralized from the left coronary system. 2. Elevated left ventricular end-diastolic pressure of approximately 27 mmHg. DISCUSSION AND RECOMMENDATIONS: The cardiac catheterization findings are not significantly changed compared to the findings of 05/2019. Based on the study, it appears appropriate to continue a conservative approach. Her most recent ejection fraction on echocardiography of 07/11/[address] Willoughby was 30 to 35%. We are optimizing medical regimen and have advised close clinical followup. She has a LifeVest in place. We recommend repeat echocardiography in 10/2020 to see if ejection fraction is improved. Job ID: [id number] DocumentID: [id number] Dictated Date: 09/04/2020 16:02:42 Paramedic Supervisor Date: 09/04/2020 16:57:04 Dictated By: JOSE MIGUEL ALCALA MD, MA, FACP, FACC,
== END 2020-09-04 21:00 | disposition home or self-care (01) ==
LOC: CATH 15:00 → CSD 16:17 → CATH 21:00
PROVIDERS: ATTEND Internal Medicine Cardiovascular Disease
DX: I25.10 Atherosclerotic heart disease of native coronary artery without angina pectoris (principal); I50.22 Chronic systolic (congestive) heart failure; F17.210 Nicotine dependence, cigarettes, uncomplicated; E11.51 Type 2 diabetes mellitus with diabetic peripheral angiopathy without gangrene; E78.5 Hyperlipidemia, unspecified; J43.9 Emphysema, unspecified; E66.9 Obesity, unspecified; Z68.34 Body mass index [BMI] 34.0-34.9, adult; Z79.82 Long term (current) use of aspirin; Z79.51 Long term (current) use of inhaled steroids; Z79.899 Other long term (current) drug therapy; Z95.5 Presence of coronary angioplasty implant and graft
CPT/HCPCS: 80053; 80061; 85027; 85610; 85730; 87081; 93458; C1894; 36415

== ENCOUNTER 2020-11-24 11:50 | Emergency (ER) | payer SELFPAY ==
[~2020-11-24] VITALS: Ht 157.5 cm; Wt 87.5 kg
[~2020-11-24 11:50] MED LIST changes: -NS IV 1000 ML 1,000 ML IV SCH
--- NOTE | 2020-11-24 12:11 | ED Neurological Problem ---
General Stated Complaint: AMS History of Present Illness Date Seen by Provider: Nov 24, 2020 Time Seen by Provider: 12:03 Initial Comments 65-year-old female presents with altered mental status per her grandson. She has brought in by her grandson because she was walking around the house naked. She complains that she is "sick as a dog" she didn't feel well for couple days, short of breath. Patient has a history of COPD and use inhalers. Patient is very vague in the rest of her symptoms. Her grandson does have upper respi ratory symptoms consistent with Covid with loss of taste and smell. Patient's daughter also recently tested positive for Covid. According to patient's daughter her symptoms started about a week ago. Patient was seen for a "cellulitis" about a week ago but also had upper respiratory symptoms. At that time she was placed on an antibiotic for her "leg cellulitis. At this time it does not appear to be a she does not complain of any problems in her lower legs. Allergies and Home Medications Allergies Uncoded Allergies: Beta bernard (Adverse Reaction, Unknown, 2.4 second pause (07/2018), 05/16/19) Patient Home Medication List Home Medication List Reviewed: Yes Albuterol Sulfate (Proventil Hfa) 6.7 Gm Hfa.aer.ad, 2 PUFF INH Q6H Prescribed by: CAROLINA ALMEIDA on 06/15/19 0015 Aspirin (Aspirin EC) 81 Mg Tablet.dr, 81 MG PO DAILY Prescribed by: ORIANA DIAZ on 08/18/20 1221 Atorvastatin Calcium (Atorvastatin Calcium) 40 Mg Tablet, 40 MG PO HS, (Reported) Entered as Reported by: SIXTO CARVALHO on 07/28/18 1105 Gabapentin (Gabapentin) 600 Mg Tablet, 600 MG PO TID, (Reported) Entered as Reported by: SEVERO TESFAYE on 09/04/20 1326 Insulin Detemir (Levemir Flextouch) 100 Unit/1 Ml Insuln.pen, 30 UNIT SQ BID Prescribed by: DIANNA CARTWRIGHT on 09/27/19 1014 Insulin Lispro (Humalog Kwikpen) 100 Unit/1 Ml Insuln.pen, 10 UNIT SQ TIDWM Prescribed by: DIANNA CARTWRIGHT on 09/27/19 1217 Isosorbide Mononitrate (Isosorbide Mononitrate ER) 60 Mg Tab, 60 MG PO DAILY, (Reported) Entered as Reported by: MARY SAEED on 02/01/18 09 Levothyroxine Sodium (Levothyroxine Sodium) 88 Mcg Tablet, 88 MCG PO DAILY, (Reported) Entered as Reported by: MARY SAEED on 02/01/18922 Lisinopril/Hydrochlorothiazide (Lisinopril-Hctz 20-12.5 mg Tab) Unknown Strength Tablet, Unknown Dose PO DAILY, (Reported) Entered as Reported by: SEVERO TESFAYE on 09/04/20 1326 Nitroglycerin (Nitroglycerin) 0.4 Mg Tab.subl, 0.4 MG SL UD PRN for CHEST PAIN, (Reported) Entered as Reported by: SIXTO CARVALHO on 07/28/18 1105 [place] 3 Polyunsat Fatty Acids (Fish Oil 1,000 mg Capsule) 1,000 Mg Cap, 1,000 MG PO BID, (Reported) Entered as Reported by: ISXTO CARVALHO on 02/01/18 0932 Rivaroxaban (Xarelto) 20 Mg Tablet, 20 MG PO DAILY Prescribed by: DIANNA CARTWRIGHT on 09/27/19 1014 Review of Systems Review of Systems Constitutional: see HPI; No chills, No fever; malaise, weakness Eyes: No Symptoms Reported Ears, Nose, Mouth, Throat: no symptoms reported Respiratory: cough, short of breath Cardiovascular: no symptoms reported Gastrointestinal: no symptoms reported Genitourinary: no symptoms reported Musculoskeletal: no symptoms reported Skin: no symptoms reported Psychiatric/Neurological: See HPI Endocrine: No Symptoms Reported Hematologic/Lymphatic: No Symptoms Reported Past Eszyfyo-Bpfokt-Qabugy Hx Immunizations Up To Date Tetanus Booster (TDap): Unknown Seasonal Allergies Seasonal Allergies: No Past Medical History Surgeries: Yes Coronary Stent, Hysterectomy Respiratory: Yes (WEARS OXYGEN AT NIGHT) COPD Cardiac: Yes (NSTEMI, heart failure with EF 30 to 35% in July 2020) Cardiomyopathy, Coronary Artery Disease, Heart Attack, High Cholesterol, Peripheral Vascular Neurological: No Neuropathy Sexually Transmitted Disease: No HIV/AIDS: No Genitourinary: Yes Renal Failure Gastrointestinal: Yes Gastroesophageal Reflux Musculoskeletal: No Endocrine: Yes Hypothyroidsim, Diabetes, Non-Insulin dep HEENT: No Cancer: No Psychosocial: No Integumentary: No Psoriasis Blood Disorders: No Adverse Reaction/Blood Tranf: No Family Medical History Completed stroke 19 FATHER Diabetes mellitus 19 FATHER G8 BROTHER G8 SISTER No Pertinent Family Hx Physical Exam Vital Signs Vital Signs - First Documented 11/24/20 12:00 Temp 37.1 Pulse 100 Resp 26 B/P (MAP) 134/87 (103) Pulse Ox 96 O2 Delivery Room Air Capillary Refill : Height, Weight, BMI Height: 5'2.00" Weight: 179lbs. 5.0oz. 81.540457pn; 34.07 BMI Method:Stated General Appearance: no apparent distress HEENT: PERRL/EOMI Neck: full range of motion, supple Respiratory: decreased breath sounds (Moderate diffuse) Focused Exam Lactate Level 11/24/20 12:12: Lactic Acid Level 1.75 Lactic Acid Level Laboratory Tests Test 11/24/20 12:12 Lactic Acid Level 1.75 MMOL/L (0.50-2.00) Procedures/Interventions Date of ETT Placement: Feb 01, 2018 Time of ETT Placement: 1613 Progress/Results/Core Measures Results/Orders Lab Results Laboratory Tests Test 11/24/20 12:00 11/24/20 12:12 11/24/20 12:16 Range/Units Urine Color YELLOW Urine Clarity SLIGHTLY CLOUDY Urine pH 6.0 5-9 Urine Specific [place] 1.020 1.016-1.022 Urine Protein 3+ H NEGATIVE Urine Glucose (UA) 3+ H NEGATIVE Urine Ketones NEGATIVE NEGATIVE Urine Nitrite NEGATIVE NEGATIVE Urine Bilirubin 1+ H NEGATIVE Urine Urobilinogen 0.2 < = 1.0 MG/DL Urine Leukocyte Esterase NEGATIVE NEGATIVE Urine RBC (Auto) 2+ H NEGATIVE Urine RBC 2-5 H /HPF Urine WBC NONE /HPF Urine Squamous Epithelial Cells 10-25 H /HPF Urine Crystals NONE /LPF Urine Bacteria FEW H /HPF Urine Casts PRESENT /LPF Urine Hyaline Casts 2-5 H /LPF Urine Mucus LARGE H /LPF Urine Culture Indicated NO White Blood Count 11.8 H 4.3-11.0 10^3/uL Red Blood Count 4.01 3.80-5.11 10^6/uL Hemoglobin 11.4 L 11.5-16.0 g/dL Hematocrit 35 35-52 % Mean Corpuscular Volume 87 80-99 fL Mean Corpuscular Hemoglobin 28 25-34 pg Mean Corpuscular Hemoglobin Concent 33 32-36 g/dL Red Cell Distribution Width 14.3 10.0-14.5 % Platelet Count 178 130-400 10^3/uL Mean Platelet Volume 11.0 9.0-12.2 fL Immature Granulocyte % (Auto) 0 % Neutrophils (%) (Auto) 94 H 42-75 % Lymphocytes (%) (Auto) 2 L 12-44 % Monocytes (%) (Auto) 4 0-12 % Eosinophils (%) (Auto) 0 0-10 % Basophils (%) (Auto) 0 0-10 % Neutrophils # (Auto) 11.1 H 1.8-7.8 X 10^3 Lymphocytes # (Auto) 0.3 L 1.0-4.0 X 10^3 Monocytes # (Auto) 0.4 0.0-1.0 X 10^3 Eosinophils # (Auto) 0.0 0.0-0.3 10^3/uL Basophils # (Auto) 0.0 0.0-0.1 10^3/uL Immature Granulocyte # (Auto) 0.0 0.0-0.1 10^3/uL Neutrophils % (Manual) 96 % Lymphocytes % (Manual) 2 % Monocytes % (Manual) 2 % Prothrombin Time 14.7 12.2-14.7 SEC INR Comment 1.1 0.8-1.4 Activated Partial Thromboplast Time 39 H 24-35 SEC Sodium Level 131 L 135-145 MMOL/L Potassium Level 4.3 3.6-5.0 MMOL/L Chloride Level 96 L 98-107 MMOL/L Carbon Dioxide Level 22 21-32 MMOL/L Anion Gap 13 5-14 MMOL/L Blood Urea Nitrogen 30 H 7-18 MG/DL Creatinine 1.63 H 0.60-1.30 MG/DL Estimat Glomerular Filtration Rate 32 BUN/Creatinine Ratio 18 Glucose Level 579 *H 70-105 MG/DL Lactic Acid Level 1.75 0.50-2.00 MMOL/L Calcium Level 8.4 L 8.5-10.1 MG/DL Corrected Calcium 9.5 8.5-10.1 MG/DL Total Bilirubin 0.6 0.1-1.0 MG/DL Aspartate Amino Transf (AST/SGOT) 20 5-34 U/L Alanine Aminotransferase (ALT/SGPT) 13 0-55 U/L Alkaline Phosphatase 99 40-136 U/L Total Protein 7.3 6.4-8.2 GM/DL Albumin 2.6 L 3.2-4.5 GM/DL My Orders Orders - CUMMINS,STEFFEN L DO Cbc With Automated Diff (11/24/20 12:11) Comprehensive Metabolic Panel (11/24/20 12:11) Blood Culture (11/24/20 12:11) Sputum Culture (11/24/20 12:11) Urinalysis (11/24/20 12:11) Urine Culture (11/24/20 12:11) Protime With Inr (11/24/20 12:11) Partial Thromboplastin Time (11/24/20 12:11) Chest 1 View Ap/Pa Only (11/24/20 12:11) Ed Iv/Invasive Line Start (11/24/20 12:11) Vital Signs Adult Sepsis Patie Q15M (11/24/20 12:11) Lactic Acid Analyzer (11/24/20 12:11) Cefepime Injection (Maxipime Injection) (11/24/20 12:15) Covid 19 Inhouse Test (11/24/20 12:11) Albuterol/Ipra Inhalation Soln (Duoneb I (11/24/20 12:15) Budesonide Inhalation Solution (Pulmicor (11/24/20 12:15) Svn Small Volume Nebulizer (11/24/20 12:15) Svn Small Volume Nebulizer (11/24/20 12:15) Manual Differential (11/24/20 12:12) Ns Iv 1000 Ml (Sodium Chloride 0.9%) (11/24/20 12:44) Insulin (Regular) Human (Novolin R (Per (11/24/20 13:00) Medications Given in ED Current Medications Medications Dose Ordered Sig/[place] Route Start Time Stop Time Status Last Admin Dose Admin Albuterol/ Ipratropium 3 ml ONCE ONCE INH 11/24/20 12:15 11/24/20 12:17 DC 11/24/20 12:37 3 ML Budesonide 0.5 mg ONCE ONCE INH 11/24/20 12:15 11/24/20 12:17 DC 11/24/20 12:37 0.5 MG Cefepime HCl 1000 mg/Sterile Water 10 ml @ 200 mls/hr ONCE ONCE IV 11/24/20 12:15 11/24/20 12:17 DC 11/24/20 12:37 200 MLS/HR Insulin Human Regular 10 unit ONCE ONCE IV 11/24/20 13:00 11/24/20 13:01 DC 11/24/20 13:14 10 UNIT Vital Signs/I&O 11/24/20 12:00 Temp 37.1 Pulse 100 Resp 26 B/P (MAP) 134/87 (103) Pulse Ox 96 O2 Delivery Room Air Progress Progress Note : Progress Note Patient with some mild confusion, patient with a right-sided pneumonia. She also has elevated blood glucose. I am unsure if she is at her baseline or if this mild confusion is new. We are unable to get a hold of her family members to determine a baseline. Patient is not requiring any oxygen at this time. I did call both [facility] and [facility], they do not have any bed availability based on low staffing issues. I did call and discussed with Dr. Vega in the [facility]. Patient was accepted by Dr. Vega for transfer. Patient was transferred in stable condition Diagnostic Imaging Diagonstic Imaging: Xray Plain Films/CT/US/NM/MRI: chest Comments Date of Exam:11/24/20 CHEST 1 VIEW AP/PA ONLY EXAM: Portable erect AP chest at 12:40 PM INDICATION: Sepsis FINDINGS: The heart is stable in size when compared to the prior exam of 08/17/2020. However, in the interval since the previous study, a vague alveolar/interstitial infiltrate has developed in the right perihilar region. This finding does suggest pneumonia/atelectasis. There may also be a small amount of pneumonia/atelectasis in the right lung base. The left lung seems generally clear. The central pulmonary vascularity is somewhat prominent but no different than on the prior exam. There is no pleural effusion identified. The mediastinum is not widened. The osseous structures are intact. IMPRESSION: The appearance of the chest has worsened since the prior study as right perihilar pneumonia/atelectasis has developed. A follow-up exam would be recommended for continued evaluation. Reviewed: Reviewed by Me, Reviewed/Discussed Departure Impression Primary Impression: Pneumonia Qualified Codes: J18.9 - Pneumonia, unspecified organism Additional Impressions: Person under investigation for COVID-19 Altered mental state Qualified Codes: R41.82 - Altered mental status, unspecified Hyperglycemia Disposition: 02 XFER SHT-TRM HOSP Condition: Stable Transfer Transfer Reason: Diversion Time Spoke to Accepting Phy: 14:14 Transfer Progress Notes Patient accepted by Dr. Vega at [facility] Transfer Facility: [facility] Method of Transfer: EMS Departure-Patient Inst. Referrals: SELF,FORTINO INGRAM (PCP/Family) Primary Care Physician STEFFEN CUMMINS DO Nov 24, 2020 12:11
[2020-11-24] MEDS ORDERED: RT-ALBUTEROL/IPRATROPIUM 3 ML (DUONEB) VIAL INH ONE (12:15)
[2020-11-24] MEDS ORDERED: CEFEPIME INJECTION 1,000 MG in WATER (STERILE) FOR INJECTION 10 ML IV ONE (12:15)
[2020-11-24] MEDS ORDERED: RT-BUDESONIDE NEBS 0.5 MG/2ML (PULMICORT) AMP INH ONE (12:15)
[2020-11-24 12:25] LABS: BASOPHILS % (AUTO) 0 % (0-10); EOSINOPHILS % (AUTO) 0 % (0-10); HEMATOCRIT 35 % (35-52); HEMOGLOBIN 11.4 g/dL (11.5-16.0); LYMPHOCYTES # (AUTO) 0.3 X 10^3 (1.0-4.0); LYMPHOCYTES % (AUTO) 2 % (12-44); MEAN CORPUSCULAR HEMOGLOBIN 28 pg (25-34); MEAN CORPUSCULAR HGB CONC 33 g/dL (32-36); MEAN CORPUSCULAR VOLUME 87 fL (80-99); MONOCYTES # (AUTO) 0.4 X 10^3 (0.0-1.0); MONOCYTES % (AUTO) 4 % (0-12); NEUTROPHILS # (AUTO) 11.1 X 10^3 (1.8-7.8); NEUTROPHILS % (AUTO) 94 % (42-75); PLATELET COUNT 178 10^3/uL (130-400); WHITE BLOOD COUNT 11.8 10^3/uL (4.3-11.0)
[2020-11-24 12:29] LABS: CLARITY,URINE SLIGHTLY CLOUDY; COLOR,URINE YELLOW; GLUCOSE, URINE (UA) 3+ (NEGATIVE); PROTEIN,URINE 3+ (NEGATIVE)
[2020-11-24 12:30] LABS: BACTERIA,URINE FEW /HPF; BILIRUBIN,URINE 1+ (NEGATIVE); KETONES,URINE NEGATIVE (NEGATIVE); LEUKOCYTE ESTERASE ,URINE NEGATIVE (NEGATIVE); NITRITE,URINE NEGATIVE (NEGATIVE)
[2020-11-24 12:35] LABS: INR 1.1 (0.8-1.4); PROTHROMBIN TIME PATIENT 14.7 SEC (12.2-14.7)
--- NOTE | 2020-11-24 12:38 | Diagnostic Imaging Report ---
EXAM: Portable erect AP chest at 12:40 PM INDICATION: Sepsis FINDINGS: The heart is stable in size when compared to the prior exam of 08/17/2020. However, in the interval since the previous study, a vague alveolar/interstitial infiltrate has developed in the right perihilar region. This finding does suggest pneumonia/atelectasis. There may also be a small amount of pneumonia/atelectasis in the right lung base. The left lung seems generally clear. The central pulmonary vascularity is somewhat prominent but no different than on the prior exam. There is no pleural effusion identified. The mediastinum is not widened. The osseous structures are intact. IMPRESSION: The appearance of the chest has worsened since the prior study as right perihilar pneumonia/atelectasis has developed. A follow-up exam would be recommended for continued evaluation. Dictated by: Dictated on workstation # [id number]
[2020-11-24 12:43] LABS: CREATININE SERUM 1.63 MG/DL (0.60-1.30); POTASSIUM 4.3 MMOL/L (3.6-5.0)
[2020-11-24 12:44] LABS: ALBUMIN 2.6 GM/DL (3.2-4.5); BILIRUBIN,TOTAL 0.6 MG/DL (0.1-1.0); CALCIUM 8.4 MG/DL (8.5-10.1); TOTAL PROTEIN 7.3 GM/DL (6.4-8.2)
[2020-11-24] MEDS ORDERED: NS IV 1000 ML 1,000 ML IV STA (12:44)
[2020-11-24 12:45] LABS: LYMPHOCYTES % (MANUAL) 2 %; MONOCYTES % (MANUAL) 2 %; NEUTROPHILS % (MANUAL) 96 %
[2020-11-24] MEDS ORDERED: inSUlin (REGULAR) HUMAN 1 UNIT/0.01 ML (CHARGE PER UNIT) IV ONE (13:00)
[2020-11-24 15:00] VITALS: BP 168/56
== END 2020-11-24 15:00 | disposition short-term general hospital (02) ==
LOC: EDUNIT# 11:50 → ER FS 11:53
DX: U07.1 COVID-19 (principal); J18.9 Pneumonia, unspecified organism; R41.82 Altered mental status, unspecified; E11.65 Type 2 diabetes mellitus with hyperglycemia; I25.2 Old myocardial infarction; E78.00 Pure hypercholesterolemia, unspecified; E03.9 Hypothyroidism, unspecified; I25.10 Atherosclerotic heart disease of native coronary artery without angina pectoris; Z79.82 Long term (current) use of aspirin; Z79.899 Other long term (current) drug therapy; Z79.01 Long term (current) use of anticoagulants; Z79.890 Hormone replacement therapy
CPT/HCPCS: 36415; 71045; 80053; 81000; 83605; 85007; 85027; 85610; 85730; 87040; 87088; 87635

== ENCOUNTER → 2021-01-03 | Outpatient (CLI) | payer SELFPAY ==
--- NOTE | 2021-01-03 11:12 | Diagnostic Imaging Report ---
INDICATION: Right foot pain. COMPARISON: None. FINDINGS: 3 views of the right foot demonstrate no acute fracture or dislocation. There are no focal osseous lesions. There is no soft tissue swelling. Joint spaces are well maintained. No radiopaque foreign bodies are seen. IMPRESSION: No acute fractures or dislocations of the right foot. Dictated by: Dictated on workstation # [id number]
== END ==
LOC: RAD FS 10:48
PROVIDERS: ATTEND Family Medicine
DX: M79.671 Pain in right foot (principal)
CPT/HCPCS: 73630

== ENCOUNTER 2021-01-22 22:00 | Inpatient (IN) | payer SELFPAY ==
[~2021-01-22] VITALS: Ht 167 cm; Wt 90.0 kg
[~2021-01-22 22:00] MED LIST changes: -POTA10TA36 PO; +POTA10TA37 PO
--- NOTE | 2021-01-22 22:12 | ED Chest Pain ---
General Chief Complaint: Chest Pain Stated Complaint: CHEST PAIN Source: patient (LIMITED HISTORIAN), old records History of Present Illness Date Seen by Provider: Jan 22, 2021 Time Seen by Provider: 22:00 Initial Comments PT ARRIVES VIA [facility] FROM [facility] C/O CHEST PAIN PAIN IS IN MID CHEST AND RADIATES DOWN LEFT ARM--IS SHARP PAIN PAIN BEGAN A COUPLE OF HOURS AGO, WHILE SITTING + SHORTNESS OF BREATH WITH PAIN NO SWEATS + NAUSEA, NO VOMITING NO CHANGE IN CHRONIC LEG SWELLING TOOK HOME NTG X 4 WITHOUT RELIEF EMS GAVE 4 BABY ASPIRIN AND MORPHINE 6 MG --PAIN FREE/SYMPTOM-FREE AT THIS TIME PT HAS HISTORY OF CAD WITH STENT LAST CATH 08/17/20 SHOWED PATENT STENT TO LAD, CHRONICALLY OCCLUDED RCA WITH COLLATERAL CIRCULATION PT ALSO FOUND TO HAVE SIGNIFICANT CARDIOMYOPATHY AND LIFE VEST WAS PLACED ON PATIENT AT THAT ADMIT AND DISMISSED TO HOME WITH LIFE VEST PT IS NOT WEARING LIFE VEST ON ARRIVAL HERE. PT STATES "I HAVEN'T WORN IT SINCE I GOT COVID" STATES SHE WAS HOSPITALIZED AT [facility] IN , AND WAS DISMISSED ON 12/01/20 SHE STATES HER 39 Y.O. SON WAS ALSO HOSPITALIZED THERE AT THE SAME TIME, ALSO WITH COVID-19, AND HE 12/02/20 DUE TO COVID-19 STATES SHE "JUST DIDN'T CARE ABOUT ANYTHING AFTER THAT" PT IS ON XARELTO PT STATES SHE HAS FREQUENT FALLS, AND HAS A LARGE BRUISE/HEMATOMA TO FOREHEAD--STATES SHE FELL YESTERDAY OR THE DAY BEFORE AND HIT HER HEAD. DENIES LOSS OF CONSCIOUSNESS, AND DID NOT SEEK CARE FOR THAT INJURY. SHE DENIES PAIN OR ANY OTHER INJURY FROM THAT INCIDENT. PCP: DR. LÓPEZ, [facility] BOWLING BALL PATCHER: DR. ALCALA Allergies and Home Medications Allergies Uncoded Allergies: Beta bernard (Adverse Reaction, Unknown, 2.4 second pause (07/2018), 05/16/19) Patient Home Medication List Home Medication List Reviewed: Yes Albuterol Sulfate (Proventil Hfa) 6.7 Gm Hfa.aer.ad, 2 PUFF INH Q6H Prescribed by: CAROLINA ALMEIDA on 06/15/19 0015 Aspirin (Aspirin EC) 81 Mg Tablet.dr 81 MG PO DAILY Prescribed by: ORIAAN DIAZ on 08/18/20 1221 Atorvastatin Calcium (Atorvastatin Calcium) 40 Mg Tablet, 40 MG PO HS, (Reported) Entered as Reported by: SIXTO CARVALHO on 07/28/18 1105 Gabapentin (Gabapentin) 600 Mg Tablet, 600 MG PO TID, (Reported) Entered as Reported by: SEVERO TESFAYE on 09/04/20 1326 Insulin Detemir (Levemir Flextouch) 100 Unit/1 Ml Insuln.pen, 30 UNIT SQ BID Prescribed by: DIANNA CARTWRIGHT on 09/27/19 1014 Insulin Lispro (Humalog Kwikpen) 100 Unit/1 Ml Insuln.pen, 10 UNIT SQ TIDWM Prescribed by: DIANNA CARTWRIGHT on 09/27/19 1217 Isosorbide Mononitrate (Isosorbide Mononitrate ER) 60 Mg Tab, 60 MG PO DAILY, (Reported) Entered as Reported by: MARY SAEED on 02/01/18 0923 Levothyroxine Sodium (Levothyroxine Sodium) 88 Mcg Tablet, 88 MCG PO DAILY, (Reported) Entered as Reported by: MARY SAEED on 02/01/18 0923 Lisinopril/Hydrochlorothiazide (Lisinopril-Hctz 20-12.5 mg Tab) Unknown Strength Tablet, Unknown Dose PO DAILY, (Reported) Entered as Reported by: SEVERO TESFAYE on 09/04/20 1326 Nitroglycerin (Nitroglycerin) 0.4 Mg Tab.subl, 0.4 MG SL UD PRN for CHEST PAIN, (Reported) Entered as Reported by: SIXTO CARVALHO on 07/28/18 1105 [place] 3 Polyunsat Fatty Acids (Fish Oil 1,000 mg Capsule) 1,000 Mg Cap, 1,000 MG PO BID, (Reported) Entered as Reported by: SIXTO CARVALHO on 02/01/18 0932 Rivaroxaban (Xarelto) 20 Mg Tablet, 20 MG PO DAILY Prescribed by: DIANNA CARTWRIGHT on 09/27/19 1014 Review of Systems Review of Systems Constitutional: No diaphoresis, No dizziness, No fever EENTM: No Symptoms Reported Respiratory: See HPI, Shortness of Air Cardiovascular: See HPI, Chest Pain Gastrointestinal: See HPI; Denies Abdominal Pain; Nausea, Rectal Bleeding; Denies Vomiting Genitourinary: No Symptoms Reported Musculoskeletal: see HPI (LEFT ARM PAIN ) Skin: other (CHRONIC WOUNDS TO LOWER LEGS AND FEET) Psychiatric/Neurological: Depressed; Denies Headache; Pre-Existing Deficit (PERIPHERAL NEUROPATHY) Endocrine: No Symptoms Reported Hematologic/Lymphatic: Easy Bleeding, Easy Bruising Past Njdcpvh-Hqwwfu-Tqgtac Hx Patient Social History Tobacco Use?: Yes Tobacco type used: Cigarettes Smoking Status: Current Everyday Smoker Substance use?: No Alcohol Use?: No Immunizations Up To Date Tetanus Booster (TDap): Unknown Seasonal Allergies Seasonal Allergies: No Past Medical History Surgery/Hospitalization HX: COPD, Insulin dependent DM Surgeries: Yes Cardiac, Coronary Stent, Hysterectomy Respiratory: Yes (WEARS OXYGEN AT NIGHT) COPD Cardiac: Yes (NSTEMI, heart failure with EF 30 to 35% in July 2020) Cardiomyopathy, Chronic Edema/Swelling, Coronary Artery Disease, Heart Attack, High Cholesterol, Hypertension, Peripheral Vascular Neurological: Yes Neuropathy [place] FORMER History: Hysterectomy, Menopausal Sexually Transmitted Disease: No HIV/AIDS: No Genitourinary: Yes (NO DIALYSIS) Renal Failure Gastrointestinal: Yes Gastroesophageal Reflux Musculoskeletal: Yes (FREQUENT FALLS) Endocrine: Yes Hypothyroidsim, Diabetes, Non-Insulin dep HEENT: No Cancer: No Psychosocial: No Integumentary: Yes (CHRONIC LOWER LEG AND FOOT ULCERS/WOUNDS) Blood Disorders: No Adverse Reaction/Blood Tranf: No Family Medical History Completed stroke 19 FATHER Diabetes mellitus 19 FATHER G8 BROTHER G8 SISTER No Pertinent Family Hx PAST SURGICAL HISTORY: -CARDIAC CATH 09/04/[address] ALCALA: CONCLUSIONS: 1. Diffuse dsdn-gh-yheupjgo disease of the left coronary system without significant focal stenoses. There is a patent stent in the proximal left anterior descending that is known to be a drug-eluting stent measuring 3.0 x 24 mm and that was placed in 01/2018 in [place], [place]. The right coronary artery is chronically occluded at its ostium and is collateralized from the left coronary system. 2. Elevated left ventricular end-diastolic pressure of approximately 27 mmHg. DISCUSSION AND RECOMMENDATIONS: The cardiac catheterization findings are not significantly changed compared to the findings of 05/2019. Based on the study, it appears appropriate to continue a conservative approach. Her most recent ejection fraction on echocardiography of 07/11/[address] Willoughby was 30 to 35%. We are optimizing medical regimen and have advised close clinical followup. She has a LifeVest in place. We recommend repeat echocardiography in 10/2020 to see if ejection fraction is improved. Physical Exam Vital Signs Vital Signs - First Documented 01/22/21 22:04 Temp 36.3 Pulse 82 Resp 16 B/P (MAP) 119/107 (111) Pulse Ox 100 O2 Delivery Nasal Cannula O2 Flow Rate 2.00 FiO2 100 Capillary Refill : Height, Weight, BMI Height: 5'2.00" Weight: 179lbs. 5.0oz. 81.031549dl; 35.00 BMI Method:Stated General Appearance: No Apparent Distress, WD/WN, Other (MILDLY LETHARGIC/DROWSY--PT HAS RECEIVED 6 MG MORPHINE PRIOR TO ARRIVAL) HEENT: Pale Conjunctivae (L), Pale Conjunctivae (R), Other (DRY ORAL MUCOSA) Respiratory: No Accessory Muscle Use, No Respiratory Distress, Rales (IN BASES) Cardiovascular: Regular Rate, Rhythm, No Murmur Gastrointestinal: Non Tender, Soft Extremity: Pedal Edema (LOWER LEGS AND FEET WITH SOILED DRESSINGS IN PLACE, WITH CHRONIC VENOUS STASIS CHANGES, AND MULTIPLE SCABBED AREAS. RIGHT LOWER LEG AND FOOT WITH 1+ EDEMA. LEFT LOWER LEG AND FOOT WITH TRACE EDEMA--PT STATES RIGHT LEG IS ALWAYS MORE SWOLLEN THAN LEFT. ) Neurologic/Psychiatric: Alert, Oriented x3, Depressed Affect ( AND VERY FLAT AFFECT); No Motor Weakness; Other (PERIPHERAL NEUROPATHY--DECREASED SENSATION TO FEET) Skin: Warm/Dry, Pallor, Other (WOUNDS NOTED ABOVE) Procedures/Interventions Date of ETT Placement: Feb 01, 2018 Time of ETT Placement: 1613 Progress/Results/Core Measures Results/Orders Lab Results Laboratory Tests Test 01/22/21 22:07 Range/Units White Blood Count 7.6 4.3-11.0 10^3/uL Red Blood Count 2.44 L 3.80-5.11 10^6/uL Hemoglobin 6.7 *L 11.5-16.0 g/dL Hematocrit 23 L 35-52 % Mean Corpuscular Volume 96 80-99 fL Mean Corpuscular Hemoglobin 27 25-34 pg Mean Corpuscular Hemoglobin Concent 29 L 32-36 g/dL Red Cell Distribution Width 16.9 H 10.0-14.5 % Platelet Count 178 130-400 10^3/uL Mean Platelet Volume 10.0 9.0-12.2 fL Immature Granulocyte % (Auto) 1 % Neutrophils (%) (Auto) 78 H 42-75 % Lymphocytes (%) (Auto) 11 L 12-44 % Monocytes (%) (Auto) 7 0-12 % Eosinophils (%) (Auto) 3 0-10 % Basophils (%) (Auto) 1 0-10 % Neutrophils # (Auto) 5.9 1.8-7.8 10^3/uL Lymphocytes # (Auto) 0.8 L 1.0-4.0 10^3/uL Monocytes # (Auto) 0.5 0.0-1.0 10^3/uL Eosinophils # (Auto) 0.2 0.0-0.3 10^3/uL Basophils # (Auto) 0.0 0.0-0.1 10^3/uL Immature Granulocyte # (Auto) 0.1 0.0-0.1 10^3/uL Prothrombin Time 21.7 H 12.2-14.7 SEC INR Comment 1.8 H 0.8-1.4 Activated Partial Thromboplast Time 47 H 24-35 SEC Sodium Level 135 135-145 MMOL/L Potassium Level 5.4 H 3.6-5.0 MMOL/L Chloride Level 105 98-107 MMOL/L Carbon Dioxide Level 20 L 21-32 MMOL/L Anion Gap 10 5-14 MMOL/L Blood Urea Nitrogen 55 H 7-18 MG/DL Creatinine 2.48 H 0.60-1.30 MG/DL Estimat Glomerular Filtration Rate 20 BUN/Creatinine Ratio 22 Glucose Level 238 H 70-105 MG/DL Calcium Level 7.9 L 8.5-10.1 MG/DL Corrected Calcium 8.9 8.5-10.1 MG/DL Magnesium Level 1.9 1.6-2.4 MG/DL Total Bilirubin 0.2 0.1-1.0 MG/DL Aspartate Amino Transf (AST/SGOT) 22 5-34 U/L Alanine Aminotransferase (ALT/SGPT) 17 0-55 U/L Alkaline Phosphatase 68 40-136 U/L Total Creatine Kinase 184 H 29-168 U/L Creatine Kinase MB 8.6 *H <6.6 NG/ML Myoglobin 177.9 H 10.0-92.0 NG/ML Troponin I 0.091 H <0.028 NG/ML B-Type Natriuretic Peptide 2028.1 H <100.0 PG/ML Total Protein 6.4 6.4-8.2 GM/DL Albumin 2.7 L 3.2-4.5 GM/DL Amylase Level 73 25-125 U/L Lipase 24 8-78 U/L My Orders Orders - LUIS ALBERTO GARCIA DO Ed Iv/Invasive Line Start (01/22/21 22:07) Ct Head Wo (01/22/21 22:07) Cbc With Automated Diff (01/22/21:) Magnesium (01/22/21:) Chest 1 View, Ap/Pa Only (01/22/21 22:07) Ekg Tracing (01/22/21:07) Comprehensive Metabolic Panel (01/22/21:) Myoglobin Serum (01/22/21:) Protime With Inr (01/22/21 22:07) Partial Thromboplastin Time (01/22/21 22:07) O2 (01/22/21:07) Monitor-Rhythm Ecg Trace Only (01/22/21 22:07) Ed Iv/Invasive Line Start (01/22/21 22:07) Creatine Kinase (01/22/21 22:07) Creatine Kinase Mb (01/22/21 22:07) Lipase (01/22/21 22:07) Amylase (01/22/21 22:07) BNP (01/22/21 22:07) Red Cells Leukocytes Reduced (01/22/21 22:22) Troponin I (01/22/21 22:07) Type And Screen (01/22/21 22:22) Catheter(Urinary) Insert & Ass 03,15 (01/22/21 22:59) Furosemide Injection (Lasix Injection) (01/22/21 23:00) Medications Given in ED Current Medications Medications Dose Ordered Sig/[place] Route Start Time Stop Time Status Last Admin Dose Admin Furosemide 40 mg ONCE ONCE IVP 01/22/21 23:00 01/22/21 23:01 DC 01/22/21 23:08 40 MG Vital Signs/I&O 01/22/21 01/22/21 22:04 22:04 Temp 36.3 Pulse 82 Resp 16 B/P (MAP) 119/107 (111) Pulse Ox 100 97 O2 Delivery Nasal Cannula Nasal Cannula O2 Flow Rate 2.00 2.00 FiO2 100 Progress Progress Note : Progress Note ON REVIEWING HGB RESULTS, PT NOW STATES THAT SHE DOES PASS BLOOD IN HER STOOLS "OFF AND ON" --BUT HAS NOT SOUGHT CARE FOR THIS NO DETERIORATION IN PT'S CONDITION DURING ER STAY NO COMPLAINTS OF CHEST PAIN OR SHORTNESS OF BREATH DURING ER STAY NO NAUSEA DURING ER STAY PT STATES SHE WISHES TO BE A FULL CODE "FOR MY FAMILY" Initial ECG Impression Date: Jan 22, 2021 Initial ECG Impression Time: 22:04 Initial ECG Rate: 60 Initial ECG Rhythm: Normal Sinus (IVCD) Initial ECG Comparisson: Unchanged Diagnostic Imaging Comments PER RADIOLOGIST REPORTS AT 2250: CT HEAD: FINDINGS: Small scalp contusion overlying left frontal convexity. No fractures. The paranasal sinuses and mastoids are unremarkable. No intracranial hemorrhage, mass effect, hydrocephalus or extra-axial fluid collections. No CT evidence of a territorial infarction. Intracranial vascular calcifications. IMPRESSION: 1. Small scalp contusion overlying the left frontal convexity. No fractures. 2. No acute intracranial CT findings. CXR: FINDINGS: Cardiomegaly with normal central pulmonary vascularity. Increasing but mild diffuse interstitial and airspace opacities throughout both lungs. No pleural effusion or pneumothorax. No acute osseous findings. IMPRESSION: 1. Stable cardiomegaly with normal central pulmonary vascularity. 2. Diffuse mild interstitial and airspace opacities are nonspecific and could represent an infectious/inflammatory process. Fluid overload is considered less likely giving the normal central pulmonary vascularity. Reviewed: Reviewed by Me Departure Communication (Admissions) 2254--SPOKE WITH DR. WILLOUGHBY, BOWLING BALL PATCHER, ADVISES TO HOLD XARELTO, ORDERS NOTED FOR LASIX AND AGREES WITH TRANSFUSION 2302--SPOKE WITH DR. DIAZ, HOSPITALIST FOR [facility], ACCEPTS PT FOR ADMIT. 2303--REPORT TO E-ICU PHYSICIAN, NO ADDITIONAL RECOMMENDATIONS AT THIS TIME Impression Primary Impression: Chest pain Additional Impressions: Elevated troponin Severe anemia SUSPECTED GI BLEED Acute on chronic renal failure CHF (congestive heart failure) Presence of stent in coronary artery in patient with coronary artery disease Chronic anticoagulation IDDM (insulin dependent diabetes mellitus) MILD HYPERKALEMIA HX OF COVID-19 IN 2020 Cardiomyopathy COPD NON COMPLIANCE WITH LIFE VEST CHRONIC DIABETIC LEG AND FOOT ULCERS Disposition: ADMITTED INPATIENT Condition: Stable Admissions Decision to Admit Reason: Admit from ER (General) Decision to Admit/Date: Jan 22, 2021 Time/Decision to Admit Time: 23:00 Departure-Patient Inst. Referrals: SELF,FORTINO INGRAM (PCP/Family) Primary Care Physician LUIS ALBERTO GARCIA DO Jan 22, 2021 22:12
[2021-01-22 22:15] LABS: BASOPHILS % (AUTO) 1 % (0-10); EOSINOPHILS # (AUTO) 0.2 10^3/uL (0.0-0.3); EOSINOPHILS % (AUTO) 3 % (0-10); HEMATOCRIT 23 % (35-52); LYMPHOCYTES # (AUTO) 0.8 10^3/uL (1.0-4.0); LYMPHOCYTES % (AUTO) 11 % (12-44); MEAN CORPUSCULAR HGB CONC 29 g/dL (32-36); MEAN CORPUSCULAR VOLUME 96 fL (80-99); MONOCYTES # (AUTO) 0.5 10^3/uL (0.0-1.0); MONOCYTES % (AUTO) 7 % (0-12); NEUTROPHILS # (AUTO) 5.9 10^3/uL (1.8-7.8); NEUTROPHILS % (AUTO) 78 % (42-75); PLATELET COUNT 178 10^3/uL (130-400); WHITE BLOOD COUNT 7.6 10^3/uL (4.3-11.0)
[2021-01-22 22:16] LABS: HEMOGLOBIN 6.7 g/dL (11.5-16.0); MEAN CORPUSCULAR HEMOGLOBIN 27 pg (25-34)
[2021-01-22 22:27] LABS: ALBUMIN 2.7 GM/DL (3.2-4.5)
[2021-01-22 22:28] LABS: POTASSIUM 5.4 MMOL/L (3.6-5.0)
[2021-01-22 22:29] LABS: CALCIUM 7.9 MG/DL (8.5-10.1)
[2021-01-22 22:30] LABS: INR 1.8 (0.8-1.4); PROTHROMBIN TIME PATIENT 21.7 SEC (12.2-14.7); TOTAL PROTEIN 6.4 GM/DL (6.4-8.2)
[2021-01-22 22:32] LABS: BILIRUBIN,TOTAL 0.2 MG/DL (0.1-1.0)
[2021-01-22 22:34] LABS: CREATININE SERUM 2.48 MG/DL (0.60-1.30)
[2021-01-22 22:37] LABS: MAGNESIUM 1.9 MG/DL (1.6-2.4)
[2021-01-22 22:48] LABS: CREATINE KINASE MB 8.6 NG/ML (<6.6)
--- NOTE | 2021-01-22 22:50 | Diagnostic Imaging Report ---
PROCEDURE: CT head without contrast. TECHNIQUE: Multiple contiguous axial images were obtained through the brain without the use of intravenous contrast. Auto Exposure Controls were utilized during the CT exam to meet ALARA standards for radiation dose reduction. INDICATION: Fall. Head injury and pain. Anticoagulation therapy. COMPARISON: CT head without contrast 08/17/2020 FINDINGS: Small scalp contusion overlying left frontal convexity. No fractures. The paranasal sinuses and mastoids are unremarkable. No intracranial hemorrhage, mass effect, hydrocephalus or extra-axial fluid collections. No CT evidence of a territorial infarction. Intracranial vascular calcifications. IMPRESSION: 1. Small scalp contusion overlying the left frontal convexity. No fractures. 2. No acute intracranial CT findings. Dictated by: Dictated on workstation # [id number]
--- NOTE | 2021-01-22 22:54 | Diagnostic Imaging Report ---
EXAM: CHEST 1 VIEW, AP/PA ONLY INDICATION: Chest pain. COMPARISON: 11/24/2020. FINDINGS: Cardiomegaly with normal central pulmonary vascularity. Increasing but mild diffuse interstitial and airspace opacities throughout both lungs. No pleural effusion or pneumothorax. No acute osseous findings. IMPRESSION: 1. Stable cardiomegaly with normal central pulmonary vascularity. 2. Diffuse mild interstitial and airspace opacities are nonspecific and could represent an infectious/inflammatory process. Fluid overload is considered less likely giving the normal central pulmonary vascularity. Dictated by: Dictated on workstation # [id number]
[2021-01-22] MEDS ORDERED: FUROSEMIDE 40 MG/4 ML INJ (LASIX) IVP ONE (23:00)
--- NOTE | 2021-01-23 00:33 | Tele-ICU Consult ---
History of Present Illness History of Present Illness Date Seen by Provider: Jan 23, 2021 Time Seen by Provider: 00:28 History of Present Illness 65 yo F came to ED with chest pain radiating down left arm, nausea, Has Hx of CAD with stent, went to [facility] 08/27 stent was open, Hx of DM, CPM, has life vest but was not wearing in ED On Eliquis, Hb 6.7, Hx of frequent falls from ? diabetic neuropathy, CT head ok, trop 0.09, BNP > 2000, given IV Lasix, Cr has risen 1.5 now 2.49, EKG shows incomplete RBBB, no change plan is IV Lasix, cardiology to see in am Had COVID 11/27, son from COVID Allergies and Home Medications Allergies Uncoded Allergies: Beta bernard (Adverse Reaction, Unknown, 2.4 second pause (07/2018), 05/16/19) Home Medications Albuterol Sulfate 6.7 Gm Hfa.aer.ad, 2 PUFF INH Q6H Prescribed by: CAROLINA ALMEIDA on 06/15/19 0015 Aspirin 81 Mg Tablet.dr, 81 MG PO DAILY Prescribed by: ORIANA DIAZ on 08/18/20 1221 Atorvastatin Calcium 40 Mg Tablet, 40 MG PO HS, (Reported) Gabapentin 600 Mg Tablet, 600 MG PO TID, (Reported) Insulin Detemir 100 Unit/1 Ml Insuln.pen, 30 UNIT SQ BID Prescribed by: DIANNA CARTWRIGHT on 09/27/19 1014 Insulin Lispro 100 Unit/1 Ml Insuln.pen, 10 UNIT SQ TIDWM Prescribed by: DIANNA CARTWRIGHT on 09/27/19 1217 Isosorbide Mononitrate 60 Mg Tab, 60 MG PO DAILY, (Reported) Levothyroxine Sodium 88 Mcg Tablet, 88 MCG PO DAILY, (Reported) Lisinopril/Hydrochlorothiazide Unknown Strength Tablet, Unknown Dose PO DAILY, ( Reported) Nitroglycerin 0.4 Mg Tab.subl, 0.4 MG SL UD PRN for CHEST PAIN, (Reported) [place] 3 Polyunsat Fatty Acids 1,000 Mg Cap, 1,000 MG PO BID, (Reported) Rivaroxaban 20 Mg Tablet, 20 MG PO DAILY Prescribed by: DIANNA CARTWRIGHT on 09/27/19 1014 Past Medical/Social/Family Hx Patient Social History Tobacco Use?: No Substance use?: No Alcohol Use?: No Immunizations Up To Date Tetanus Booster (TDap): Unknown Date of Pneumonia Vaccine: Mar 09, 2016 Current Status status: No Communicates: Verbally Primary Language: Tajik Preferred Spoken Language: Tajik Family Medical History Family Hx: PAST SURGICAL HISTORY: -CARDIAC CATH 09/04/[address] ALCALA: CONCLUSIONS: 1. Diffuse ipvy-qz-ducjsuki disease of the left coronary system without significant focal stenoses. There is a patent stent in the proximal left anterior descending that is known to be a drug-eluting stent measuring 3.0 x 24 mm and that was placed in 01/2018 in [place], [place]. The right coronary artery is chronically occluded at its ostium and is collateralized from the left coronary system. 2. Elevated left ventricular end-diastolic pressure of approximately 27 mmHg. DISCUSSION AND RECOMMENDATIONS: The cardiac catheterization findings are not significantly changed compared to the findings of 05/2019. Based on the study, it appears appropriate to continue a conservative approach. Her most recent ejection fraction on echocardiography of 07/11/[address] Willoughby was 30 to 35%. We are optimizing medical regimen and have advised close clinical followup. She has a LifeVest in place. We recommend repeat echocardiography in 10/2020 to see if ejection fraction is improved. Sepsis Event Evaluation Height, Weight, BMI Height: 5'2.00" Weight: 179lbs. 5.0oz. 81.771872om; 40.00 BMI Method:Stated Exam Exam Patient acknowledged, consented, and participated in this virtual visit which was conducted using real time audio/video Vital Signs Date Time Temp Pulse Resp B/P (MAP) Pulse Ox O2 Delivery O2 Flow Rate FiO2 01/22/21 22:04 97 Nasal Cannula 2.00 100 01/22/21 22:04 36.3 82 16 119/107 (111) 100 Nasal Cannula 2.00 Height & Weight Height: 5'2.00" Weight: 179lbs. 5.0oz. 81.815889yq; 40.00 BMI Method:Stated Capillary Refill: Less Than 3 Seconds Results Lab Laboratory Tests 01/22/21 22:07 Assessment/Plan Assessment/Plan probable ACS, give IV Lasix, cardiology to see in am, to get one unit of PRBC Critical Care: Critically Ill Patient GEOFF BRENNAN MD Jan 23, 2021 00:33
[2021-01-23] MEDS ORDERED: morphine INJ 4 MG/ML 1 ML (VIAL/SYRINGE) IV PRN (01:00)
[2021-01-23] MEDS ORDERED: NITROGLYCERIN 0.4 MG SL TABS BTL 25'S SL PRN (01:00)
[2021-01-23] MEDS ORDERED: NS IV 1000 ML 1,000 ML IV SCH (01:00)
[2021-01-23] MEDS ORDERED: ONDANSETRON 4 MG/2 ML (SDV) Z0FRAN IV PRN (01:00)
[2021-01-23] MEDS ORDERED: NS IV 500 ML 500 ML ONE (01:01)
[2021-01-23 01:30] VITALS: BP 118/72
[2021-01-23 01:45] VITALS: BP 134/84
[2021-01-23 04:32] VITALS: BP 131/58
[2021-01-23] MEDS: inSUlin ASPART (NovoLOG) 1 UNIT/0.01 ML (CHARGE PER UNIT) SC SCH ×4 (06:34→20:26)
[2021-01-23] MEDS: FUROSEMIDE 40 MG/4 ML INJ (LASIX) IVP SCH ×2 (06:35→18:00)
[2021-01-23 06:59] LABS: BASOPHILS % (AUTO) 1 % (0-10); EOSINOPHILS # (AUTO) 0.2 10^3/uL (0.0-0.3); EOSINOPHILS % (AUTO) 4 % (0-10); HEMATOCRIT 26 % (35-52); HEMOGLOBIN 7.5 g/dL (11.5-16.0); LYMPHOCYTES # (AUTO) 0.8 10^3/uL (1.0-4.0); LYMPHOCYTES % (AUTO) 17 % (12-44); MEAN CORPUSCULAR HEMOGLOBIN 28 pg (25-34); MEAN CORPUSCULAR HGB CONC 29 g/dL (32-36); MEAN CORPUSCULAR VOLUME 96 fL (80-99); MEAN PLATELET VOLUME 9.9 fL (9.0-12.2); MONOCYTES # (AUTO) 0.5 10^3/uL (0.0-1.0); MONOCYTES % (AUTO) 9 % (0-12); NEUTROPHILS # (AUTO) 3.4 10^3/uL (1.8-7.8); NEUTROPHILS % (AUTO) 68 % (42-75); PLATELET COUNT 162 10^3/uL (130-400)
[2021-01-23 07:11] LABS: ALBUMIN 2.7 GM/DL (3.2-4.5); POTASSIUM 5.1 MMOL/L (3.6-5.0)
[2021-01-23 07:12] LABS: CALCIUM 7.9 MG/DL (8.5-10.1)
[2021-01-23 07:14] LABS: TOTAL PROTEIN 6.4 GM/DL (6.4-8.2)
--- NOTE | 2021-01-23 07:15 | Diagnostic Imaging Report ---
Indication: Chest pain Upright portable chest shows cardiomegaly with no failure. Mild prominence of interstitium with slight improvement since 01/22/2021. There is no effusion or pneumothorax. There is no acute bony abnormality. IMPRESSION: There has been slight improved aeration of the lungs since 01/22/2021. Dictated by: Dictated on workstation # [id number]
[2021-01-23 07:16] LABS: BILIRUBIN,TOTAL 0.3 MG/DL (0.1-1.0)
[2021-01-23 07:17] LABS: CREATININE SERUM 2.49 MG/DL (0.60-1.30); PHOSPHORUS 5.2 MG/DL (2.3-4.7)
[2021-01-23] MEDS: PANTOPRAZOLE 40 MG (PROTONIX) VIAL IV SCH (08:36)
[2021-01-23] MEDS: ASPIRIN E.C. 81 MG (ECOTRIN) TAB PO SCH (08:36)
--- NOTE | 2021-01-23 08:43 | Consultation-Cardiology ---
HPI-Cardiology Cardiology Consultation: Date of Consultation 01/23/21 Time Seen by a Provider: 09:00 Date of Admission 01-22-21 Attending Physician Oriana Bueno DO Admitting Physician Bear Menon MD Consulting Physician Tony Buenrostro MD HPI: Chief Complaint: Chest pain Ms. Collins is a 65 yr old female admitted to ICU8 from the ED. She reports she had her daughter call EMS yesterday to transport her to the ED. She states she developed chest pressure, ache across her chest which started yesterday while at rest. She reports she took nitro sublingual x4 at home and baby ASA. She reports no relief. No associated symptoms. She reports she received IV morphine in the ED with subsequent resolution. She reports no further chest pain. She states she fell out of bed a few days ago and hit her head. She does not recall the details. She reports she has not been compliant with Life Vest since November 2020 following tulio COVID herself and her son tulio COVID; he and she states she has not cared since then. She reports she has had diarrhea with tarry stools for the last several months. She has chronic SOB with frequent cough; she does not feel this has changed in the last several months. She reports she has bilat LE wounds on her legs for which she has been following with Dr. Menon. She denies any syncope or near syncope. No LE swelling. She continues to smoke cigs; at least 1 PPD. She has had no further c/o CP. Review of Systems-Cardiology Review of Systems Constitutional: No chills, No fever; malaise Eyes: No vision change Ears/Nose/Throat: No epistaxis, No recent hearing loss Respiratory: As described under HPI Cardiovascular: As described under HPI Gastrointestinal: As described under HPI Genitourinary: No dysuria, No hematuria Musculoskeletal: joint pain Skin: As described under HPI, ulcerations Psychiatric/Neurological: anxiety, depression; No seizure, No focal weakness, No syncope Hematologic: No bleeding abnormalities GDN-Caizud-Xfrawi Hx Patient Social History Smoking Status: Current Everyday Smoker 2nd Hand Smoke Exposure: No Have you traveled recently?: No Alcohol Use?: No Tobacco type used: Cigarettes Immunizations Up To Date Tetanus Booster (TDap): Unknown Date of Pneumonia Vaccine: Mar 09, 2016 Date of Influenza Vaccine: Nov 18, 2019 Past Medical History PMH As described under Assessment. Family Medical History Family Medical History: She reports her father and sister both had CAD with [facility] between ages 40-60. Family History: Completed stroke 19 FATHER Diabetes mellitus 19 FATHER G8 BROTHER G8 SISTER Allergies and Home Medications Allergies Uncoded Allergies: Beta bernard (Adverse Reaction, Unknown, 2.4 second pause (07/2018), 05/16/19) Patient Home Medication List Albuterol Sulfate (Proair Hfa) 1 Puff Puff, 2 PUFF IH Q4H PRN for SHORTNESS OF BREATH, (Reported) Entered as Reported by: COLBY SCOTT on 01/23/211408 Last Action: Reviewed Atorvastatin Calcium (Atorvastatin Calcium) 40 Mg Tablet, 40 MG PO HS, (Reported) Entered as Reported by: SIXTO CARVALHO on 07/28/18 1105 Last Action: Reviewed Furosemide (Furosemide) 20 Mg Tablet, 20 MG PO DAILY, (Reported) Entered as Reported by: COLBY SCOTT on 01/23/211408 Last Action: Reviewed Gabapentin (Gabapentin) 600 Mg Tablet, 600 MG PO TID, (Reported) Entered as Reported by: SEVERO TESFAYE on 09/04/20 1326 Last Action: Reviewed Hydrocodone/Acetaminophen (Hydrocodone-Acetamin 5-325 mg) 1 Each Tablet, 1-2 TAB PO HS PRN for PAIN-MODERATE (5-7), (Reported) Entered as Reported by: COLBY SCOTT on 01/23/211408 Last Action: Reviewed Insulin Aspart (Novolog Flexpen) 300 Units/3 Ml Solution, UNITS SQ TID, (Reported) Entered as Reported by: COLBY SCOTT on 01/23/211408 Last Action: Reviewed Insulin Glargine,Hum.rec.anlog (Lantus Solostar) 100 Unit/1 Ml Insuln.pen, 30 UNITS SQ BID, (Reported) Entered as Reported by: COLBY SCOTT on 01/23/211408 Last Action: Reviewed Isosorbide Mononitrate (Isosorbide Mononitrate ER) 60 Mg Tab, 60 MG PO DAILY, (Reported) Entered as Reported by: COLBY SCOTT on 01/23/211408 Last Action: Reviewed Levothyroxine Sodium (Levothyroxine Sodium) 88 Mcg Tablet, 88 MCG PO DAILY, (Reported) Entered as Reported by: MARY SAEED on 02/01/18 0923 Last Action: Reviewed Lisinopril/Hydrochlorothiazide (Zestoretic 20-12.5 mg Tablet) 1 Each Tablet, 1 EACH PO DAILY, (Reported) Entered as Reported by: COLBY SCOTT on 01/23/21 1412 Last Action: Reviewed Nitroglycerin (Nitroglycerin) 0.4 Mg Tab.subl, 0.4 MG SL UD PRN for CHEST PAIN, (Reported) Entered as Reported by: SIXTO CARVALHO on 07/28/18 1105 Last Action: Reviewed Rivaroxaban (Xarelto) 20 Mg Tablet, 20 MG PO DAILY, (Reported) Entered as Reported by: COLBY SCOTT on 01/23/21 140 Last Action: Reviewed Silver Sulfadiazine (Silver Sulfadiazine) 50 Gm Cream..g., 1 APPLIC TOP DAILY, (Reported) Entered as Reported by: COLBY SCOTT on 01/23/211408 Last Action: Reviewed Sulfamethoxazole/Trimethoprim (Bactrim Ds Tablet) 1 Each Tablet, 1 EACH PO BID, (Reported) Entered as Reported by: COLBY SCOTT on 01/23/211408 Last Action: Reviewed Discontinued Medications Albuterol Sulfate (Proventil Hfa) 6.7 Gm Hfa.aer.ad, 2 PUFF INH Q6H Discontinued Reason: No Longer Taking Prescribed by: CAROLINA ALMEIDA on 06/15/19 0015 Last Action: Discontinued Aspirin (Aspirin EC) 81 Mg Tablet.dr, 81 MG PO DAILY Discontinued Reason: No Longer Taking Prescribed by: ORIANA BUENO on 08/18/20 1221 Last Action: Discontinued Insulin Detemir (Levemir Flextouch) 100 Unit/1 Ml Insuln.pen, 30 UNIT SQ BID Discontinued Reason: Duplicate Order Prescribed by: DIANNA CARTWRIGHT on 09/27/19 1014 Last Action: Discontinued Insulin Lispro (Humalog Kwikpen) 100 Unit/1 Ml Insuln.pen, 10 UNIT SQ TIDWM Discontinued Reason: Duplicate Order Prescribed by: DIANNA CARTWRIGHT on 09/27/19 1217 Last Action: Discontinued Isosorbide Mononitrate (Isosorbide Mononitrate ER) 60 Mg Tab, 60 MG PO DAILY, (Reported) Discontinued Reason: Duplicate Order Entered as Reported by: MARY SAEED on 02/01/18922 Last Action: Discontinued [place] 3 Polyunsat Fatty Acids (Fish Oil 1,000 mg Capsule) 1,000 Mg Cap, 1,000 MG PO BID, (Reported) Discontinued Reason: Duplicate Order Entered as Reported by: SIXTO CARVALHO on 02/01/18931 Last Action: Discontinued Rivaroxaban (Xarelto) 20 Mg Tablet, 20 MG PO DAILY Discontinued Reason: Duplicate Order Prescribed by: DIANNA CARTWRIGHT on 09/27/19 1014 Last Action: Discontinued Physical Exam-Cardiology Physical Exam Vital Signs/I&O 01/23/21 01/24/21 01/24/21 23:30 04:00 08:51 Temp 36.6 36.5 36.7 Pulse 53 47 87 Resp B/P (MAP) 132/68 116/41 132/57 Pulse Ox 90 90 98 O2 Delivery Nasal Cannula Nasal Cannula Room Air O2 Flow Rate 2.00 2.00 01/23/21 23:59 Intake Total 1395 ml Output Total 1050 ml Balance 345 ml Capillary Refill : Less Than 3 Seconds Constitutional: AAO x 3, well-developed, well-nourished HEENT: PERRL, hearing is well preserved, oral hygience is good Neck: No carotid bruit; carotid pulses are 2 + bilaterally Respiratory: No accessory muscle use, No respiratory distress; chest expansion is symmetric, chest is bilaterally symmetric, rhonchi (scattered), other (coarse breath sounds) Cardiovascular: regular rate-rhythm; No JVD; S1 and S2 Gastrointestinal: No tender; soft, round, audible bowel sounds Extremities: no lower extremity edema bilateral Neurologic/Psychiatric: grossly intact (moves all extremities) Skin: other (dressing to bilat LE with sainguinous drainage and foul odor) Data Review Labs Laboratory Tests 01/23/21 11:41: Glucometer 136H 01/23/21 13:10: White Blood Count 5.1, Red Blood Count 2.72L, Hemoglobin 7.4L, Hematocrit 26L, Mean Corpuscular Volume 95, Mean Corpuscular Hemoglobin 27, Mean Corpuscular Hemoglobin Concent 29L, Red Cell Distribution Width 17.4H, Platelet Count 164, Mean Platelet Volume 10.0, Sodium Level 134L, Potassium Level 5.5H, Chloride Level 104, Carbon Dioxide Level 22, Anion Gap 8, Blood Urea Nitrogen 54H, Creatinine 2.52H, Estimat Glomerular Filtration Rate 19, BUN/Creatinine Ratio 21, Glucose Level 156H, Calcium Level 8.0L 01/23/21 14:00: SARS-CoV-2 RNA (RT-PCR) Not Detected 01/23/21 15:21: Glucometer 148H 01/23/21 17:31: Glucometer 179H 01/23/21 20:17: Glucometer 145H 01/23/21 20:43: Sodium Level 135, Potassium Level 5.4H, Chloride Level 103, Carbon Dioxide Level 21, Anion Gap 11, Blood Urea Nitrogen 56H, Creatinine 2.78H, Estimat Glomerular Filtration Rate 17, BUN/Creatinine Ratio 20, Glucose Level 140H, Calcium Level 9.0 01/24/21 05:51: Sodium Level 130L, Potassium Level 6.0H, Chloride Level 102, Carbon Dioxide Level 19L, Anion Gap 9, Blood Urea Nitrogen 60H, Creatinine 2.99H, Estimat Glomerular Filtration Rate 16, BUN/Creatinine Ratio 20, Glucose Level 189H, Calcium Level 8.3L, White Blood Count 6.6, Red Blood Count 2.77L, Hemoglobin 7.6L, Hematocrit 26L, Mean Corpuscular Volume 94, Mean Corpuscular Hemoglobin 27, Mean Corpuscular Hemoglobin Concent 29L, Red Cell Distribution Width 17.3H, Platelet Count 156, Mean Platelet Volume 10.1, Immature Granulocyte % (Auto) 0, Neutrophils (%) (Auto) 78H, Lymphocytes (%) (Auto) 10L, Monocytes (%) (Auto) 8, Eosinophils (%) (Auto) 2, Basophils (%) (Auto) 1, Neutrophils # (Auto) 5.2, Lymphocytes # (Auto) 0.7L, Monocytes # (Auto) 0.5, Eosinophils # (Auto) 0.2, Basophils # (Auto) 0.0, Immature Granulocyte # (Auto) 0.0, Corrected Calcium 9.3, Total Bilirubin 0.4, Aspartate Amino Transf (AST/SGOT) 27, Alanine Jones otransferase (ALT/SGPT) 19, Alkaline Phosphatase 70, Total Protein 6.3L, Albumin 2.7L 01/24/21 08:22: Glucometer 167H Microbiology 01/23/21 MRSA Screen - Final, Complete MRSA not isolated Radiology NAME: BRIGID COLLINS [facility] REC#: [id number] PT STATUS: ADM IN : 1955 PHYSICIAN: ORIANA BUENO DO ADMIT DATE: 01/22/21/ICU Signed Date of Exam:01/23/21 CHEST 1 VIEW, AP/PA ONLY Indication: Chest pain Upright portable chest shows cardiomegaly with no failure. Mild prominence of interstitium with slight improvement since 01/22/2021. There is no effusion or pneumothorax. There is no acute bony abnormality. IMPRESSION: There has been slight improved aeration of the lungs since 01/22/2021. Dictated by: Dictated on workstation # [id number] Dict: 01/23/2114 Trans: 01/23/21839 [facility] [id number] Interpreted by: ABDIAZIZ FELIX MD Electronically signed by: ABDIAZIZ FELIX MD 01/23/2140 NAME: BRIGID COLLINS [facility] REC#: [id number] PT STATUS: ADM IN : 1955 PHYSICIAN: LUIS ALBERTO GARCIA DO ADMIT DATE: 01/22/21/ICU Signed Date of Exam:01/22/21 CT HEAD WO PROCEDURE: CT head without contrast. TECHNIQUE: Multiple contiguous axial images were obtained through the brain without the use of intravenous contrast. Auto Exposure Controls were utilized during the CT exam to meet ALARA standards for radiation dose reduction. INDICATION: Fall. Head injury and pain. Anticoagulation therapy. COMPARISON: CT head without contrast 08/17/2020 FINDINGS: Small scalp contusion overlying left frontal convexity. No fractures. The paranasal sinuses and mastoids are unremarkable. No intracranial hemorrhage, mass effect, hydrocephalus or extra-axial fluid collections. No CT evidence of a territorial infarction. Intracranial vascular calcifications. IMPRESSION: 1. Small scalp contusion overlying the left frontal convexity. No fractures. 2. No acute intracranial CT findings. Dictated by: Dictated on workstation # [id number] Dict: 01/22/21 2246 Trans: 01/23/21 0038 [facility] [id number] Interpreted by: NUBIA MADERA MD Electronically signed by: NUBIA MADERA MD 01/23/21 0038 ECG Impression ECG Initial ECG Rhythm: Normal Sinus A/P-Cardiology Assessment/Admission Diagnosis NSTEMI with NICM - she has opted for conservative management only Anemia - d/t suspected GIB Shortness of breath - Multi-factorial (see below) Acute on Chronic systolic CHF (HFrEF) - treat with diuretics Ischemic cardiomyopathy - Echo of 05/17/19: LVEF 40-45%, grade 2 diastolic dysfunction, mod MR, enlarged LA, RVSP 30 mmHg - Echo of 07-11-[address] Willoughby showed LVEF 30-35%. Grade 2 diastolic dysfunction. Mod MR. PASP 45-50mmHg - Life Vest placed - 08-17-2020 PAF - seen during hospitalization of 06/18/19 with a controlled vent response - currently SR - Xarelto for stroke prophylaxis - hold d/t suspected GIB CAD: - Ac NSTEMI in May and June 2019, likely related to small vessel disease (based on results of cath of May 2019 when she had presented with a similar syndrome). - Card cath of 05/17/19: 20-30% ostial LMCA & distal LMCA and ostial LAD, patent LAD stent (3x24 PARAMJIT placed in Jan 2018 at [facility]), mild to mod diffuse CAD and cor calcification of the L cor system; RCA known to be chronically occluded collateralized from the L (as reported on card cath of [address] Merino); LVEDP 28 mmHg - MPI on 07-12-[address] Willoughby: Baseline left bundle branch block persisted during test . Patchy uptake with fixed defect involving the inferior wall, fixed defect at the base of the anterior wall, mild reversible ischemia involving the anterior wall and anterior apical segment . Dilated left ventricle with severe diffuse left ventricular hypokinesia, EF 21% - viability study on 07-19-[address] Willoughby: viable myocardium involving the lateral, inferolateral, and inferior wall - Most recent cardiac cath of 09-04-20 - Diffuse mhrp-fq-tavxilxw disease of the left coronary system without significant focal stenoses. There is a patent stent in the proximal left anterior descending that is known to be a drug-eluting stent measuring 3.0 x 24 mm and that was placed in 01/[address] [place] [address], [place]. The right coronary artery is chronically occluded at its ostium and is collateralized from the left coronary system. Elevated left ventricular end- diastolic pressure of approximately 27 mmHg. PAD - Bilateral ostial SFA occlusions seen on angiogram of Jan [address] Merino - previously followed by Dr. 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 H/o up to 2.4 sec pause while on beta-bernard (07-28-18); Toprol Acute on chronic exacerabation of COPD - managed by PCP Chronic tobaccoism - cessation advised Suspected sleep apnea - supplemental oxygen at COVID (+) - November 2020 - Hospitalized at [facility] Peripheral wounds - management has been out pt per Dr. Menon (her PCP) Discussion and Recomendations Complex management issue d/t multiple cardiac issues and non-compliance NSTEMI with NICM for which she herself has opted for conservative management only We will start Coreg 6.25mg BID and Imdur 30mg daily Not a suitable candidate for RENAY or ARB or Entresto d/t renal failure with hyperkalemia Suspected GIB - we advise evaluation and treatment. Once GIB source has been determined and treated we advise OAC be resumed, however, she is not a suitable candidate for Xarelto d/t CKD. We advise tx with Eliquis or warfarin. Monitor lab closely Replace electrolytes as indicated Management of peripheral wounds is per medical services We have spoken with Dr. Bueno of medical services regarding plan of care We would like to thank her for this consult Further recs will be based on her hospital course Clinical Quality Measures AMI/AHF: ASA po Prior to arrival: Yes FENG NEGRON Jan 23, 2021 08:43
[2021-01-23] MEDS ORDERED: ISOSORBIDE MONONITRATE 30 MG (IMDUR) TAB PO ONE (09:30)
--- NOTE | 2021-01-23 09:30 | Physician Query Clarification ---
PQ-Further Specificity Admission/Discharge Admission Date: Jan 22, 2021 at 23:00 Discharge Date: Dr. Bueno, The medical record reflects the following clinical scenario: History/Risk Factors: HTN, acute on chronic systolic CHF, CKD stg 4, KUMAR, GIB, ICM, CAD Clinical Findings: creatine kinase 184, CK-MB 8.6, myoglobin 177.9, Troponin 0.091, BNP 8.1 Treatment: IVP Lasix 40 mg, IVF Question: Can you further specify the elevated troponin per the clinical indicators above? Please document a response in the Progress Notes or Discharge Summary. 1. Type 2 CO d/t demand ischemia 2. NSTEMI 3. Elevated troponin underlying cause undetermined 4. Other, with explanation of the clinical findings. 5. Clinically undetermined, no explanation for the clinical findings. PHYSICIAN RESPONSE Can you specify per above: 1 Please remember a lack of response to the above will prompt a phone page by CDI/Coding staff. In responding to this query, please exercise your independent professional judgment. The purpose of this communication is to more accurately reflect the complexity of your patients condition. The fact that a question is asked does not imply that any particular answer is desired or expected. Thank you for your timely response to this clarification. Requestors name: Maik THIS PHYSICIAN QUERY FORM IS A PERMANENT PART OF THE MEDICAL RECORD MAIK MCKEON Jan 23, 2021 09:30 ORIANA BUENO DO Jan 23, 2021 12:34
--- NOTE | 2021-01-23 09:41 | History & Physical-Hospitalist ---
History of Present Illness HPI/Chief Complaint CC: Chest pain HPI: This is a 65yoWF clinic Pt of [facility] who previously had Covid, her son of Covid who has expressed desire to not live in this world anymore, who presented to the ER with chest pain with elevated Troponin. Cardiology was consulted, Pt is very noncompliant and receives most of her care in [place]. Creatinine of 2.6 conservative management indicated. Her EF is 30%. She wears oxygen at home. Will advance diet. Source: patient Exam Limitations: clinical condition Date Seen 01/23/21 Time Seen by a Provider: 09:40 Attending Physician Brenda Diaz DO PCP Self,Bear INGRAM Referring Physician Date of Admission Jan 22, 2021 at 23:00 Home Medications & Allergies Home Medications Reviewed patient Home Medication Reconciliation performed by pharmacy medication reconciliations physical science technician and/or nursing. Patients Allergies have been reviewed. Allergies Allergies Uncoded Allergies Beta bernard ( Adverse Reaction, Unknown, 2.4 second pause (07/2018), 05/16/19) Past Fncdikz-Vipflk-Bapgyr Hx Patient Social History Marrital Status: single Employed/Student: unemployed Tobacco Use?: Yes Tobacco type used: Cigarettes Smoking Status: Current Everyday Smoker Substance use?: No Alcohol Use?: No Immunizations Up To Date Date of Influenza Vaccine: Nov 18, 2019 Tetanus Booster (TDap): Unknown Date of Pneumonia Vaccine: Mar 09, 2016 Seasonal Allergies Seasonal Allergies: No Current Status status: No Communicates: Verbally Primary Language: Gambian Preferred Spoken Language: Gambian Past Medical History Surgeries: Cardiac, Coronary Stent, Hysterectomy COPD Cardiomyopathy, Chronic Edema/Swelling, Coronary Artery Disease, Heart Attack, High Cholesterol, Hypertension, Peripheral Vascular Neuropathy 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 ALCALA: CONCLUSIONS: 1. Diffuse kbxg-yv-stalfyfe disease of the left coronary system without significant focal stenoses. There is a patent stent in the proximal left anterior descending that is known to be a drug-eluting stent measuring 3.0 x 24 mm and that was placed in 01/2018 in [place], [place]. The right coronary artery is chronically occluded at its ostium and is collateralized from the left coronary system. 2. Elevated left ventricular end-diastolic pressure of approximately 27 mmHg. DISCUSSION AND RECOMMENDATIONS: The cardiac catheterization findings are not significantly changed compared to the findings of 05/2019. Based on the study, it appears appropriate to continue a conservative approach. Her most recent ejection fraction on echocardiography of 07/11/[address] Willoughby was 30 to 35%. We are optimizing medical regimen and have advised close clinical followup. She has a LifeVest in place. We recommend repeat echocardiography in 10/2020 to see if ejection fraction is improved. Review of Systems Constitutional: see HPI, malaise, weakness EENTM: no symptoms reported Respiratory: no symptoms reported Cardiovascular: chest pain Gastrointestinal: no symptoms reported Genitourinary: no symptoms reported Musculoskeletal: no symptoms reported Skin: no symptoms reported Psychiatric/Neurological: Depressed All Other Systems Reviewed Negative Unless Noted: Yes Physical Exam Physical Exam Vital Signs Vital Signs - First Documented 01/22/21 22:04 Temp 36.3 Pulse 82 Resp 16 B/P (MAP) 119/107 (111) Pulse Ox 100 O2 Delivery Nasal Cannula O2 Flow Rate 2.00 FiO2 100 Capillary Refill : Less Than 3 Seconds Height, Weight, BMI Height: 5'2.00" Weight: 179lbs. 5.0oz. 81.689762hu; 40.51 BMI Method:Stated General Appearance: Chronically ill, Obese Eyes: Right Eye Normal Inspection, Right Eye PERRL HEENT: PERRL/EOMI, Normal ENT Inspection, Pharynx Normal, Moist Mucous Membr anes Neck: Full Range of Motion, Normal Inspection, Non Tender Respiratory: Chest Non Tender, Lungs Clear, Normal Breath Sounds, No Accessory Muscle Use, No Respiratory Distress Cardiovascular: Regular Rate, Rhythm, No Edema, No Gallop, No JVD, No Murmur, Normal Peripheral Pulses Gastrointestinal: Normal Bowel Sounds, No Organomegaly, No Pulsatile Mass, Non Tender, Soft Back: Normal Inspection, No CVA Tenderness, No Vertebral Tenderness Extremity: Normal Capillary Refill, Normal Inspection, Normal Range of Motion, Non Tender, No Calf Tenderness, No Pedal Edema Neurologic/Psychiatric: Alert, Oriented x3, No Motor/Sensory Deficits, Normal M ood/Affect Skin: Normal Color, Warm/Dry Lymphatic: No Adenopathy Results Results/Procedures Labs Laboratory Tests 01/22/21 22:07 01/23/21 06:50 01/23/21 13:10 01/23/21 20:43 Patient resulted labs reviewed. Assessment/Plan Admission Diagnosis Assessment: Chest pain Acute on chronic kidney disease Hyperkalemia 5.5 Noncompliance Smoker Ischemic cardiomyopathy refuses LifeVest Plan: Conservative management Noncompliance Admission Status: Inpatient Order (span 2 midnights) Reason for Inpatient Admission: Elevated troponin with chest pain Diagnosis/Problems Diagnosis/Problems (1) Chest pain Status: Acute (2) Elevated troponin Status: Acute (3) Insulin dependent diabetes mellitus Status: Chronic (4) Heart failure (5) Type 2 diabetes mellitus with complication Status: Chronic (6) Chronic renal insufficiency Status: Acute (7) Smoker Status: Chronic Clinical Quality Measures AMI/AHF: ASA po Prior to arrival: Yes BRENDA DIAZ DO Jan 23, 2021 09:41
--- NOTE | 2021-01-23 10:56 | Physical Therapy Evaluation ---
PT Evaluation-General Medical Diagnosis Admission Date Jan 22, 2021 at 23:00 Medical Diagnosis: chest pain Onset Date: Jan 22, 2021 Therapy Diagnosis Therapy Diagnosis: impaired mobility, strength, endurance Height/Weight Height (Feet): 5 Height (Inches): 2.00 Weight (Pounds): 179 Weight (Ounces): 5.0 Precautions Precautions/Isolations: Fall Prevention, Standard Precautions Referral Physician: Brenda Bueno DO Reason for Referral: Evaluation/Treatment Medical History Additional Medical History Past Medical History Surgeries: Cardiac, Coronary Stent, Hysterectomy COPD Cardiomyopathy, Chronic Edema/Swelling, Coronary Artery Disease, Heart Attack, High Cholesterol, Hypertension, Peripheral Vascular Neuropathy 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 Prior Prior Level of Function SCALE: Activities may be completed with or without assistive devices. 5-Whuxwbmdle-gsmxhyg completes the activity by him/herself with no assistance from a helper. 5-Set-up or Clean-up Assistance-helper sets up or cleans up; patient completes activity. [place] assists only prior to or following the activity. 4-Supervision or Touching Assistance-helper provides verbal cues and/or touching/steadying and/or contact guard assistance as patient completes activity. Assistance may be provided throughout the activity or intermittently. 3-Partial/Moderate Assistance-helper does LESS THAN HALF the effort. [place] lift s, holds or supports trunk or limbs, but provides less than half the effort. 2-Substantial/Maximal Assistance-helper does MORE THAN HALF the effort. [place] lifts or holds trunk or limbs and provides more than half the effort. 2-Plndbmrfe-iokbmj does ALL the effort. Patient does none of the effort to complete the activity. Or, the assistance of 2 or more helpers is required for the patient to complete the activity. If activity was not attempted, code reason: 7-Patient Refused. 9-Not Applicable-not attempted and the patient did not perform the activity before the current illness, exacerbation or injury. 10-Not Attempted due to Environmental Limitations-(lack of equipment, weather restraints, etc.). 88-Not Attempted due to Medical Conditions or Safety Concerns. Bed Mobility: 6 Transfers (B,C,W/C): 6 Gait: 6 Stairs: 6 Indoor Mobility (Ambulation): Independent Stairs: Independent Prior Devices Use: Walker PT Evaluation-Current Subjective Patient in bed pre tx, agrees to PT, has unrated pain in legs from wounds. Pt/Family Goals to be independent at home Objective Patient Orientation: Person, Place, Situation Attachments: Oxygen, Cade Catheter, IV ROM/Strength ROM Lower Extremities WNL Strength Lower Extremities LLE (hip flexion 3/5, knee flexion 4/5, knee extension 4/5, dorsiflexion 4/5), RLE (hip flexion 3/5, knee flexion 4/5, knee extension 4/5, dorsiflexion 4/5) Sensory Hearing: Functional Sensation Right Lower Extremit: Impaired Sensation Left Lower Extremity: Impaired Transfers Roll Left to Right (QC): 6 Sit to Lying (QC): 4 Lying to Sitting/Side of Bed(Q: 4 Sit to Stand (QC): 4 Chair/Jru-pc-Axkcy Xfer(QC): 4 Patient has quite a bit of difficulty with sit to supine but can do it without assist. Gait Does the Patient Walk?: Yes Mode of Locomotion: Walk Anticipated Mode of Locomotion: Walk Walk 10 feet (QC): 4 Walk 50 ft with 2 Turns(QC): 4 Distance: 120' Gait Assistive Device: FWW Comments/Gait Description one standing rest break, had one moment of unsteadiness but no LOB, slow ambulation Balance Sitting Static: Normal Sitting Dynamic: Normal Standing Static: Fair Standing Dynamic: Fair Treatment BLE supine exercises x20 (AP, HS) Assessment/Needs Patient in bed post tx with nurse call, phone, tray, all needs met. Patient has impaired mobility, strength, endurance. Patient is CGA for transfers and amb ulation. 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 Care Home Goals PT Retail Marketing Manager Goals Time Frame: Jan 30, 2021 Roll Left & Right (QC): 6 Sit to Lying (QC): 6 Lying-Sitting on Side/Bed(QC): 6 Sit to Stand (QC): 4 (SBA) Chair/Dpo-cu-Yamut Xfer(QC): 4 (SBA) Walk 10 feet (QC): 4 (SBA) Walk 50ft with 2 Turns (QC): 4 (SBA) Walk 150 ft (QC): 4 (SBA) PT Plan Problem List Problem List: Activity Tolerance, Functional Strength, Safety, Balance, Gait, Transfer, Bed Mobility, ROM Treatment/Plan Treatment Plan: Continue Plan of Care Treatment Plan: Bed Mobility, Education, Functional Activity Марина, Functional Strength, Gait, Safety, Therapeutic Exercise, Transfers Treatment Duration: Jan 30, 2021 Frequency: 6 times per week Estimated Hrs Per Day: .25 hour per day Patient and/or Family Agrees t: Yes Safety Risks/Education Patient Education: Gait Training, Transfer Techniques, Correct Positioning, Sa fety Issues Teaching Recipient: Patient Teaching Methods: Demonstration, Discussion Response to Teaching: Reinforcement Needed Discharge Recommendations Plan Patient will perform bed mobility and transfer training, balance and endurance training, functional strengthening, stair training, gait training, and education, to improve functional mobility and independence at home. Time/GCodes Time In: 1018 Time Out: 1035 Total Billed Treatment Time: 17 Total Billed Treatment 1 visit RAYMOND BEASLEY PT Jan 23, 2021 10:56
--- NOTE | 2021-01-23 11:06 | Tele-ICU Progress Note ---
Subjective Date Seen by a Provider: Jan 23, 2021 Time Seen by a Provider: 11:05 Sepsis Event Evaluation Height, Weight, BMI Height: 5'2.00" Weight: 179lbs. 5.0oz. [id number]; 40.51 BMI Method:Stated Exam Exam Patient acknowledged, consented, and participated in this virtual visit which was conducted using real time audio/video Vital Signs Date Time Temp Pulse Resp B/P (MAP) Pulse Ox O2 Delivery O2 Flow Rate FiO2 01/23/21 09:42 95 Nasal Cannula 2.00 01/23/21 08:00 69 98 Nasal Cannula 2.00 01/23/21 08:00 Nasal Cannula 2.00 01/23/21 07:48 35.9 01/23/21 07:00 57 01/23/21 07:00 67 98 Nasal Cannula 2.00 01/23/21 06:30 67 129/55 100 Nasal Cannula 2.00 01/23/21 05:00 64 132/62 97 Nasal Cannula 2.00 01/23/21 04:32 36.2 70 16 131/58 97 Nasal Cannula 2.00 01/23/21 04:00 97 Nasal Cannula 2.00 01/23/21 04:00 71 124/61 97 Nasal Cannula 2.00 01/23/21 03:00 71 119/58 96 Nasal Cannula 2.00 01/23/21 02:00 73 127/55 99 Nasal Cannula 2.00 01/23/21 01:45 36.6 74 18 134/84 99 Nasal Cannula 2.00 01/23/21 01:45 74 134/84 100 Nasal Cannula 2.00 01/23/21 01:30 56 128/39 100 Nasal Cannula 2.00 01/23/21 01:30 36.3 56 16 118/72 100 Nasal Cannula 2.00 01/23/21 01:15 53 118/72 92 Nasal Cannula 2.00 01/23/21 01:08 54 01/23/21 01:00 97 112/77 100 Nasal Cannula 2.00 01/23/21 00:50 99 Nasal Cannula 2.00 01/23/21 00:50 36.4 54 16 121/57 100 2.00 01/23/21 00:33 67 16 152/59 98 Nasal Cannula 2.00 01/22/21 22:04 97 Nasal Cannula 2.00 100 01/22/21 22:04 36.3 82 16 119/107 (111) 100 Nasal Cannula 2.00 I & O 01/23/21 07:00 Intake Total 300 ml Output Total 850 ml Balance -550 ml Height & Weight Height: 5'2.00" Weight: 179lbs. 5.0oz. 81.316047da; 40.51 BMI Method:Stated General Appearance: No Apparent Distress, WD/WN, Other (MILDLY LETHARGIC/DROWSY--PT HAS RECEIVED 6 MG MORPHINE PRIOR TO ARRIVAL) HEENT: Pale Conjunctivae (L), Pale Conjunctivae (R), Other (DRY ORAL MUCOSA) Respiratory: No Accessory Muscle Use, No Respiratory Distress, Rales (IN BASES) Cardiovascular: Regular Rate, Rhythm, No Murmur Capillary Refill: Less Than 3 Seconds Extremity: Pedal Edema (LOWER LEGS AND FEET WITH SOILED DRESSINGS IN PLACE, WITH CHRONIC VENOUS STASIS CHANGES, AND MULTIPLE SCABBED AREAS. RIGHT LOWER LEG AND FOOT WITH 1+ EDEMA. LEFT LOWER LEG AND FOOT WITH TRACE EDEMA--PT STATES RIGHT LEG IS ALWAYS MORE SWOLLEN THAN LEFT. ) Neurologic/Psychiatric: Alert, Oriented x3, Depressed Affect ( AND VERY FLAT AFFECT); No Motor Weakness; Other (PERIPHERAL NEUROPATHY--DECREASED SENSATION TO FEET) Skin: Warm/Dry, Pallor, Other (WOUNDS NOTED ABOVE) Results Lab Laboratory Tests 01/22/21 22:07 01/23/21 06:50 Assessment/Plan Assessment/Plan (Tele-ICU Physician , Progress Note ) Available chart/ vitals / labs / Images reviewed Video assessment done using teleICU camera, rest of exam as per RN Discussed with RN , EXAM PER RN Events overnight : Afebrile FiO2 - 4L I/O = Drips: Pressors: , hemodynamically stable Consultants: Hospital course: 01/22- CP , anemia Hb 6.7 - s/p transfusion 1 uPRBC -> hb 7.5 A/P NSTEMI with NICM, h/o CAD - she has opted for conservative management as per cards nore 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 Willoughby showed LVEF 30-35%. Grade 2 diastolic dysfunction. Mod MR. PASP 45-50mmHg - Life Vest placed - 08-17-2020 - not been compliant with Life Vest since November 2020 PAF - - currently SR - Xarelto - hold d/t suspected GIB Hyperkalemia - with KUMAR - follow Elevated BNP > 2000 - given IV Lasix DM II -as per PCP COPD - con meds Suspected sleep apnea - supplemental oxygen at hs Small scalp contusion overlying the left frontal convexity., no Fr , no bleed Recent COVID 11/2020 Peripheral wounds Lines : (Central Line Necessity Reviewed) Cade: OG: Nutrition: Analgesia: Anxiety/ delirium VTE Prophylaxis: scd Stress Ulcer Prophylaxis: Plans in collaboration with bedside consultants and IM MDs. Discussed with RN to reach out if any questions or concerns A total of _ minutes of critical care time was devoted to this patient today, required to treat and/or prevent further deterioration of critical care condition ( as above) . STUART BRINK MD Jan 23, 2021 11:06
--- NOTE | 2021-01-23 13:20 | Consultation-Cardiology ---
HPI-Cardiology Cardiology Consultation: Date of Consultation 01/23/21 Time Seen by a Provider: 09:15 Date of Admission Attending Physician Brenda Diaz DO Admitting Physician Bear Menon MD Consulting Physician JOSE MIGUEL ALCALA MD, MA, FACP, FACC, FSCAI, CCDS Physician requesting consult: Dr Diaz HPI: Chief Complaint: Chest pain Ms. Collins is a 65 yr old female admitted to ICU8 from the ED. She reports she had her daughter call EMS yesterday to transport her to the ED. She states she developed chest pressure, ache across her chest which started yesterday while at rest. She reports she took nitro sublingual x4 at home and baby ASA. She reports no relief. No associated symptoms. She reports she received IV morphine in the ED with subsequent resolution. She reports no further chest pain. She states she fell out of bed a few days ago and hit her head. She does not recall the details. She reports she has not been compliant with Life Vest since November 2020 following tulio COVID herself and her son tulio COVID; he and she states she has not cared since then. She reports she has had diarrhea with tarry stools for the last several months. She has chronic SOB with frequent cough; she does not feel this has changed in the last several months. She reports she has bilat LE wounds on her legs for which she has been following with Dr. Menon. She denies any syncope or near syncope. No LE swelling. She continues to smoke cigs; at least 1 PPD. She has had no further c/o CP. Review of Systems-Cardiology Review of Systems Constitutional: No chills, No fever; malaise Eyes: No vision change Ears/Nose/Throat: No epistaxis, No recent hearing loss Respiratory: As described under HPI Cardiovascular: As described under HPI Gastrointestinal: As described under HPI Genitourinary: No dysuria, No hematuria Musculoskeletal: joint pain Skin: As described under HPI, ulcerations Psychiatric/Neurological: anxiety, depression; No seizure, No focal weakness, No syncope Hematologic: No bleeding abnormalities SHE-Xqmdus-Srhlxg Hx Patient Social History Smoking Status: Current Everyday Smoker 2nd Hand Smoke Exposure: No Have you traveled recently?: No Alcohol Use?: No Tobacco type used: Cigarettes Immunizations Up To Date Tetanus Booster (TDap): Unknown Date of Pneumonia Vaccine: Mar 09, 2016 Date of Influenza Vaccine: Nov 18, 2019 Past Medical History PMH As described under Assessment. Family Medical History Family Medical History: She reports her father and sister both had CAD with MT between ages 40-60. Family History: Completed stroke 19 FATHER Diabetes mellitus 19 FATHER G8 BROTHER G8 SISTER Allergies and Home Medications Allergies Uncoded Allergies: Beta bernard (Adverse Reaction, Unknown, 2.4 second pause (07/2018), 05/16/19) Patient Home Medication List Home Medication List Reviewed: Yes Albuterol Sulfate (Proventil Hfa) 6.7 Gm Hfa.aer.ad, 2 PUFF INH Q6H Prescribed by: CAROLINA ALMEIDA on 06/15/19 0015 Aspirin (Aspirin EC) 81 Mg Tablet.dr, 81 MG PO DAILY Prescribed by: BRENDA DIAZ on 08/18/20 1221 Atorvastatin Calcium (Atorvastatin Calcium) 40 Mg Tablet, 40 MG PO HS, (Reported) Entered as Reported by: SIXTO CARVALHO on 07/28/18 1105 Gabapentin (Gabapentin) 600 Mg Tablet, 600 MG PO TID, (Reported) Entered as Reported by: SEVERO TESFAYE on 09/04/20 1326 Insulin Detemir (Levemir Flextouch) 100 Unit/1 Ml Insuln.pen, 30 UNIT SQ BID Prescribed by: DIANNA CARTWRIGHT on 09/27/19 1014 Insulin Lispro (Humalog Kwikpen) 100 Unit/1 Ml Insuln.pen, 10 UNIT SQ TIDWM Prescribed by: DIANNA CARTWRIGHT on 09/27/19 1217 Isosorbide Mononitrate (Isosorbide Mononitrate ER) 60 Mg Tab, 60 MG PO DAILY, (Reported) Entered as Reported by: MARY SAEED on 02/01/18 0923 Levothyroxine Sodium (Levothyroxine Sodium) 88 Mcg Tablet, 88 MCG PO DAILY, (Reported) Entered as Reported by: MARY SAEED on 02/01/18922 Lisinopril/Hydrochlorothiazide (Lisinopril-Hctz 20-12.5 mg Tab) Unknown Strength Tablet, Unknown Dose PO DAILY, (Reported) Entered as Reported by: SEVERO TESFAYE on 09/04/20 1326 Nitroglycerin (Nitroglycerin) 0.4 Mg Tab.subl, 0.4 MG SL UD PRN for CHEST PAIN, (Reported) Entered as Reported by: SIXTO CARVALHO on 07/28/18 1105 [place] 3 Polyunsat Fatty Acids (Fish Oil 1,000 mg Capsule) 1,000 Mg Cap, 1,000 MG PO BID, (Reported) Entered as Reported by: SIXTO CARVALHO on 02/01/18 0932 Rivaroxaban (Xarelto) 20 Mg Tablet, 20 MG PO DAILY Prescribed by: DIANNA CARTWRIGHT on 09/27/19 1014 Physical Exam-Cardiology Physical Exam Vital Signs/I&O 01/23/21 01/23/21 01/23/21 01/23/21 01:30 01:30 01:45 01:45 Temp 36.3 36.6 Pulse 56 56 74 74 Resp 16 18 B/P (MAP) 118/72 128/39 134/84 134/84 Pulse Ox 100 100 100 99 O2 Delivery Nasal Cannula Nasal Cannula Nasal Cannula Nasal Cannula O2 Flow Rate 2.00 2.00 2.00 2.00 01/23/21 01/23/21 01/23/21 01/23/21 02:00 03:00 04:00 04:00 Pulse 73 71 71 B/P (MAP) 127/55 119/58 124/61 Pulse Ox 99 96 97 97 O2 Delivery Nasal Cannula Nasal Cannula Nasal Cannula Nasal Cannula O2 Flow Rate 2.00 2.00 2.00 2.00 01/23/21 01/23/21 01/23/21 01/23/21 04:32 05:00 06:30 07:00 Temp 36.2 Pulse 70 64 67 67 Resp 16 B/P (MAP) 131/58 132/62 129/55 Pulse Ox 97 97 100 98 O2 Delivery Nasal Cannula Nasal Cannula Nasal Cannula Nasal Cannula O2 Flow Rate 2.00 2.00 2.00 2.00 01/23/21 01/23/21 01/23/21 01/23/21 07:00 07:48 08:00 08:00 Temp 35.9 Pulse 57 69 Pulse Ox 98 O2 Delivery Nasal Cannula Nasal Cannula O2 Flow Rate 2.00 2.00 01/23/21 01/23/21 01/23/21 01/23/21 09:42 12:28 12:39 12:50 Temp 35.9 Pulse 46 43 Resp 18 B/P (MAP) 103/49 Pulse Ox 95 97 O2 Delivery Nasal Cannula Nasal Cannula Nasal Cannula O2 Flow Rate 2.00 2.00 2.00 Capillary Refill : Less Than 3 Seconds Constitutional: AAO x 3, well-developed, well-nourished HEENT: PERRL, hearing is well preserved, oral hygience is good Neck: No carotid bruit; carotid pulses are 2 + bilaterally Respiratory: No accessory muscle use, No respiratory distress; chest expansion is symmetric, chest is bilaterally symmetric, rhonchi (scattered), other (coarse breath sounds) Cardiovascular: regular rate-rhythm; No JVD; S1 and S2 Gastrointestinal: No tender; soft, round, audible bowel sounds Extremities: no lower extremity edema bilateral Neurologic/Psychiatric: grossly intact (moves all extremities) Skin: other (dressing to bilat LE with sainguinous drainage and foul odor) Data Review Labs Laboratory Tests 01/22/21 22:07: White Blood Count 7.6, Red Blood Count 2.44L, Hemoglobin 6.7*L, Hematocrit 23L, Mean Corpuscular Volume 96, Mean Corpuscular Hemoglobin 27, Mean Corpuscular Hemoglobin Concent 29L, Red Cell Distribution Width 16.9H, Platelet Count 178, Mean Platelet Volume 10.0, Immature Granulocyte % (Auto) 1, Neutrophils (%) (Auto) 78H, Lymphocytes (%) (Auto) 11L, Monocytes (%) (Auto) 7, Eosinophils (%) (Auto) 3, Basophils (%) (Auto) 1, Neutrophils # (Auto) 5.9, Lymphocytes # (Auto) 0.8L, Monocytes # (Auto) 0.5, Eosinophils # (Auto) 0.2, Basophils # (Auto) 0.0, Immature Granulocyte # (Auto) 0.1, Prothrombin Time 21.7H, INR Comment 1.8H, Activated Partial Thromboplast Time 47H, Sodium Level 135, Potassium Level 5.4H, Chloride Level 105, Carbon Dioxide Level 20L, Anion Gap 10, Blood Urea Nitrogen 55H, Creatinine 2.48H, Estimat Glomerular Filtration Rate 20, BUN/Creatinine Ratio 22, Glucose Level 238H, Calcium Level 7.9L, Corrected Calcium 8.9, Magnesium Level 1.9, Total Bilirubin 0.2, Aspartate Amino Transf (AST/SGOT) 22, Alanine Aminotransferase (ALT/SGPT) 17, Alkaline Phosphatase 68, Total Creatine Kinase 184H, Creatine Kinase MB 8.6*H, Myoglobin 177.9H, Troponin I 0.091H, B- Type Natriuretic Peptide 2028.1H, Total Protein 6.4, Albumin 2.7L, Amylase Level 73, Lipase 24 01/23/21 06:10: Stool Occult Blood Immunoassay POSITIVEH 01/23/21 06:34: Glucometer 146H 01/23/21 06:50: White Blood Count 5.0, Red Blood Count 2.67L, Hemoglobin 7.5L, Hematocrit 26L, Mean Corpuscular Volume 96, Mean Corpuscular Hemoglobin 28, Mean Corpuscular Hemoglobin Concent 29L, Red Cell Distribution Width 17.4H, Platelet Count 162, Mean Platelet Volume 9.9, Immature Granulocyte % (Auto) 1, Neutrophils (%) (Auto) 68, Lymphocytes (%) (Auto) 17, Monocytes (%) (Auto) 9, Eosinophils (%) (Auto) 4, Basophils (%) (Auto) 1, Neutrophils # (Auto) 3.4, Lymphocytes # (Auto) 0.8L, Monocytes # (Auto) 0.5, Eosinophils # (Auto) 0.2, Basophils # (Auto) 0.0, Immature Granulocyte # (Auto) 0.0, Sodium Level 134L, Potassium Level 5.1H, Chloride Level 103, Carbon Dioxide Level 21, Anion Gap 10, Blood Urea Nitrogen 55H, Creatinine 2.49H, Estimat Glomerular Filtration Rate 19, BUN/Creatinine Ratio 22, Glucose Level 165H, Calcium Level 7.9L, Corrected Calcium 8.9, Magnesium Level 2.0, Total Bilirubin 0.3, Aspartate Amino Transf (AST/SGOT) 21, Alanine Aminotransferase (ALT/SGPT) 16, Alkaline Phosphatase 69, Total Protein 6.4, Albumin 2.7L, Phosphorus Level 5.2H, Triglycerides Level 191H, Cholesterol Level 124, LDL Cholesterol Direct 72, VLDL Cholesterol 38, HDL Cholesterol 22L 01/23/21 11:41: Glucometer 136H Microbiology 01/23/21 MRSA Screen - Preliminary, Resulted A/P-Cardiology Assessment/Admission Diagnosis NSTEMI with NICM - she has opted for conservative management only Anemia - d/t suspected GIB Shortness of breath - Multi-factorial (see below) Acute on Chronic systolic CHF (HFrEF) - treat with diuretics Ischemic cardiomyopathy - Echo of 05/17/19: LVEF 40-45%, grade 2 diastolic dysfunction, mod MR, enlarged LA, RVSP 30 mmHg - Echo of 07-11-[address] Willoughby showed LVEF 30-35%. Grade 2 diastolic dysfunction. Mod MR. PASP 45-50mmHg - Life Vest placed - 08-17-2020 PAF - seen during hospitalization of 06/18/19 with a controlled vent response - currently SR - Xarelto for stroke prophylaxis - hold d/t suspected GIB CAD: - Ac NSTEMI in May and June 2019, likely related to small vessel disease (based on results of cath of May 2019 when she had presented with a similar syndrome). - Card cath of 05/17/19: 20-30% ostial LMCA & distal LMCA and ostial LAD, patent LAD stent ([id number] PARAMJIT placed in Jan 2018 at [facility]), mild to mod diffuse CAD and cor calcification of the L cor system; RCA known to be chronically occluded collateralized from the L (as reported on card cath of [address] Merino); LVEDP 28 mmHg - MPI on 07-12-[address] Willoughby: Baseline left bundle branch block persisted during test . Patchy uptake with fixed defect involving the inferior wall, fixed defect at the base of the anterior wall, mild reversible ischemia involving the anterior wall and anterior apical segment . Dilated left ventricle with severe diffuse left ventricular hypokinesia, EF 21% - viability study on 07-19-[address] Willoughby: viable myocardium involving the lateral, inferolateral, and inferior wall - Most recent cardiac cath of 09-04-20 - Diffuse zbdo-rw-pcpajfwa disease of the left coronary system without significant focal stenoses. There is a patent stent in the proximal left anterior descending that is known to be a drug-eluting stent measuring 3.0 x 24 mm and that was placed in 01/2018 in [place], [place]. The right coronary artery is chronically occluded at its ostium and is collateralized from the left coronary system. Elevated left ventricular end- diastolic pressure of approximately 27 mmHg. PAD - Bilateral ostial SFA occlusions seen on angiogram of Jan [address] Merino - previously followed by Dr. 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 H/o up to 2.4 sec pause while on beta-bernard (07-28-18); Toprol Acute on chronic exacerabation of COPD - managed by PCP Chronic tobaccoism - cessation advised Suspected sleep apnea - supplemental oxygen at hs COVID (+) - November 2020 - Hospitalized at [facility] Peripheral wounds - management has been out pt per Dr. Menon (her PCP) Discussion and Recomendations Complex management issue d/t multiple cardiac issues and non-compliance NSTEMI with NICM for which she herself has opted for conservative management only. Refuses Life Vest / ICD We will start Coreg 6.25mg BID and Imdur 30mg daily Not a suitable candidate for RENAY or ARB or Entresto d/t renal failure with hyperkalemia Suspected GIB - we advise evaluation and treatment. Once GIB source has been determined and treated we advise OAC be resumed, however, she is not a suitable candidate for Xarelto d/t CKD. We advise tx with Eliquis or warfarin. Monitor lab closely Replace electrolytes as indicated Management of peripheral wounds is per medical services We have spoken with Dr. Diaz of medical services regarding plan of care We would like to thank her for this consult Further recs will be based on her hospital course Clinical Quality Measures AMI/AHF: ASA po Prior to arrival: Yes JOSE MIGUEL ALCALA MD FACP FAC CCDS Jan 23, 2021 13:20
[2021-01-23 13:26] LABS: HEMATOCRIT 26 % (35-52); HEMOGLOBIN 7.4 g/dL (11.5-16.0); MEAN CORPUSCULAR HEMOGLOBIN 27 pg (25-34); MEAN CORPUSCULAR HGB CONC 29 g/dL (32-36); MEAN CORPUSCULAR VOLUME 95 fL (80-99); PLATELET COUNT 164 10^3/uL (130-400); WHITE BLOOD COUNT 5.1 10^3/uL (4.3-11.0)
[2021-01-23 13:44] LABS: CREATININE SERUM 2.52 MG/DL (0.60-1.30)
[2021-01-23 13:50] LABS: POTASSIUM 5.5 MMOL/L (3.6-5.0)
[2021-01-23] MEDS ORDERED: INSU100I10 SQ (14:09)
[2021-01-23] MEDS ORDERED: SULF1TAB38 PO (14:09)
[2021-01-23] MEDS ORDERED: RIVA20TA PO (14:09)
[2021-01-23] MEDS ORDERED: FURO20TA4 PO (14:09)
[2021-01-23] MEDS ORDERED: SILV50CR28 TOP (14:09)
[2021-01-23] MEDS ORDERED: ACHD5005 PO (14:09)
[2021-01-23] MEDS ORDERED: INSU100I14 SQ (14:09)
[2021-01-23] MEDS ORDERED: ISOS60TA63 PO (14:09)
[2021-01-23] MEDS ORDERED: RT-ALBUINH IH (14:09)
[2021-01-23] MEDS ORDERED: LISI-592 PO (14:12)
--- NOTE | 2021-01-23 14:24 | Occupational Therapy Eval ---
OT Evaluation-General/PLF Medical Diagnosis Admission Date Jan 22, 2021 at 23:00 Medical Diagnosis: chest pain Onset Date: Jan 22, 2021 Therapy Diagnosis Therapy Diagnosis: Impaired adls, balance, endurance Height/Weight Height (Feet): 5 Height (Inches): 2.00 Weight (Pounds): 179 Weight (Ounces): 5.0 Precautions Precautions/Isolations: Fall Prevention, Standard Precautions Referral Physician: Brenda Bueno DO Referral Reason: Evaluation/Treatment Medical History Pertinent Medical History: CAD, COPD, DM, Neuropathy Current History Pt arrives to ED with chest pain. PLOF provided by daughter. Pt lives with dtr in a single story home. Her daughter assists with LB dressing, toileting and getting in/out of tub. Pt able to do all other ADLS. Daughter also provides all IADL responsibilities. Pt was using a walker at baseline. Since Covid exposure she has been on 4L o2. Reviewed History: Yes Social History Home: Single Level Current Living Status: Children Entry Into Home: Stairs With Railing Steps Into Home: 5 ADL-Prior Level of Function SCALE: Activities may be completed with or without assistive devices. 2-Cypnvkkqki-soaupuq completes the activity by him/herself with no assistance from a helper. 5-Set-up or Clean-up Assistance-helper sets up or cleans up; patient completes activity. [place] assists only prior to or following the activity. 4-Supervision or Touching Assistance-helper provides verbal cues and/or touching/steadying and/or contact guard assistance as patient completes activity. Assistance may be provided throughout the activity or intermittently. 3-Partial/Moderate Assistance-helper does LESS THAN HALF the effort. [place] lifts, holds or supports trunk or limbs, but provides less than half the effort. 2-Substantial/Maximal Assistance-helper does MORE THAN HALF the effort. [place] lifts or holds trunk or limbs and provides more than half the effort. 5-Prklhojct-mdeqhp does ALL the effort. Patient does none of the effort to complete the activity. Or, the assistance of 2 or more helpers is required for the patient to complete the activity. If activity was not attempted, code reason: 7-Patient Refused. 9-Not Applicable-not attempted and the patient did not perform the activity before the current illness, exacerbation or injury. 10-Not Attempted due to Environmental Limitations-(lack of equipment, weather restraints, etc.). 88-Not Attempted due to Medical Conditions or Safety Concerns. Self Care: Needed Some Help Functional Cognition: Needed Some Help DME/Equipment: Tub/Shower Drive Self: No OT Current Status Subjective Pt sleeping at OT arrival. Easy to rouse but often closes eyes and refuses to answer any questions. Appearance Left sitting upright in bed, RN and daughter in room. Mental Status/Objective Patient Orientation: Person Attachments: Cade Catheter, IV, Oxygen, Telemetry ADL-Treatment Eating (QC): 5 Pt sleeping at OT arrival. Easy to rouse but often closes eyes and refuses to answer any questions. She reports frustration about being NPO. Within first few minutes of eval, cafeteria reports that pt has been changed to a liquid diet and a tray was provided. OT assisted with getting pt set up for lunch. Within taking first 2 bites, RN enters room and states that pt has again been changed to NPO due to needing EGD tomorrow. Pt then becomes upset and states that she is declining procedure. Education from staff and family on importance of procedure. Pt declining any further OT. Per PT note, pt able to transfer with CGA and ambulated ~120 feet with walker. Education OT Patient Education: Correct positioning, Purpose of tx/functional activities, Safety issues Teaching Recipient: Patient, Family Teaching Methods: Discussion Response to Teaching: Reinforcement Needed OT Patient Care Director Goals Patient Care Director Goals Time Frame: Feb 13, 2021 Oral Hygiene (QC): 4 Toileting Hygiene (QC): 3 (min) Upper Body Dressing (QC): 5 1=Demonstrate adherence to instructed precautions during ADL tasks. 2=Patient will verbalize/demonstrate understanding of assistive devices/modifications for ADL. 3=Patient will improve strength/tolerance for activity to enable patient to perform ADL's. OT Education/Plan Problem List/Assessment Assessment: Decreased Activ Tolerance, Decreased UE Strength, Impaired Funct Balance, Impaired Self-Care Skills Discharge Recommendations Plan/Recommendations: Continue POC Comment ongoing assessment Treatment Plan/Plan of Care Treatment,Training & Education: Yes Patient would benefit from OT for education, treatment and training to promote independence in ADL's, mobility, safety and/or upper extremity function for ADL's. Plan of Care: ADL Retraining, Functional Mobility, UE Funct Exercise/Act Treatment Duration: Feb 13, 2021 Frequency: 5 times per week Rehab Potential: Fair Time/GCodes Start Time: 13:41 Stop Time: 13:51 Total Time Billed (hr/min): 10 Billed Treatment Time 1 visit Pennie Evangelista OT Jan 23, 2021 14:24
--- NOTE | 2021-01-23 14:36 | Progress Note-Pre Operative ---
Pre-Operative Progress Note H&P Reviewed The H&P was reviewed, patient examined and no changes noted. Date Seen by Provider: Jan 23, 2021 Time Seen by Provider: 14:00 Date H&P Reviewed: Jan 23, 2021 Time H&P Reviewed: 14:00 Pre-Operative Diagnosis: anemia, GERD ERIKA TALLEY MD Jan 23, 2021 14:36
--- NOTE | 2021-01-23 14:59 | CONSULTATION REPORT ---
DATE OF SERVICE: 01/23/2021 ATTENDING PRIMARY CARE PHYSICIAN: Dr. Bear Menon. ADMITTING PHYSICIAN: Dr. Bueno. HISTORY OF PRESENT ILLNESS: The patient is a 65-year-old female with extensive past medical history including congestive heart failure, coronary artery disease, hypercholesterolemia, hypertension, peripheral vascular disease as well as diabetes. She presented with chest pressure and pain. She was admitted to the ICU and cardiology consulted. She had had a recent cardiac catheterization performed on several months ago and she was found to have virb-ov-pjjmuhxj disease of the left coronary system as well as chronically occluded right coronary ostium. It was recommended to proceed with medical management. The patient was also found to be anemic with a hemoglobin of 6.7, was given one unit of packed red blood cells. She does have a history of gastroesophageal reflux disease and was also found to be Hemoccult positive. PAST MEDICAL HISTORY: Cardiomyopathy, COPD, coronary artery disease, bilateral lower extremity edema, history of myocardial infarction, hypercholesterolemia, hypertension, peripheral vascular disease, diabetes, hypothyroid, gastroesophageal reflux disease. PAST SURGERIES: Hysterectomy, cardiac catheterization and stent placement. ALLERGIES: BETA DARRELL. MEDICATIONS: Albuterol inhaler 1 puff q.4 hours p.r.n., atorvastatin 40 mg daily, furosemide 20 mg daily, gabapentin 600 mg t.i.d., hydrocodone p.r.n., aspartate insulin t.i.d., Lantus insulin 30 units b.i.d., isosorbide mononitrate 60 mg daily, levothyroxine 88 mcg daily, lisinopril/hydrochlorothiazide 20/12.5 mg daily, nitroglycerin 0.4 mg p.r.n., Xarelto 20 mg daily. SOCIAL HISTORY: Positive smoke 40 pack years. Negative alcohol. FAMILY HISTORY: Father, diabetes, stroke. VITAL SIGNS: Temperature 36.2, blood pressure 103/49, pulse 43, respirations 18, pulse ox 97% on 2 liters nasal cannula. REVIEW OF SYSTEMS: Well-nourished female, currently in no acute distress. She is not experiencing any shortness of breath or difficulty breathing. No chest pain, palpitations, diaphoresis. Intermittent episodes of epigastric as well as chest pain. No nausea, vomiting. No hematemesis, no coffee ground emesis. History of constipation, no red blood per rectum, no dark tarry stools. No fever, chills, no recent inadvertent weight loss. All other review of systems negative. PHYSICAL EXAMINATION: CHEST: Distant breath sounds and scattered wheezes bilaterally. HEART: Regular, no murmurs. EXTREMITIES: A +1/3 bilateral lower extremity edema, negative Homans sign. HEENT: No scleral icterus, no cervical lymphadenopathy. ABDOMEN: Soft, nondistended. There is discomfort in the epigastric region upon deep palpation. No peritoneal signs. No hernias. SKIN: Warm and dry. LABORATORY DATA: WBC 5.1, hemoglobin 7.4, hematocrit 26, platelets 164. Potassium 5.5, BUN 54, creatinine 2.52. ASSESSMENT AND PLAN: A 65-year-old female with blood loss anemia likely secondary to an upper gastrointestinal source due to her history of gastroesophageal reflux disease as well as other risk factors including smoking. We will proceed with an EGD as well as biopsies as appropriate on this admission. Job ID: [id number] DocumentID: [id number] Dictated Date: 01/23/2021 14:44:22 [employer] Wealth [employer] Date: 01/23/2021 14:59:28 Dictated By: ERIKA TALLEY MD
[2021-01-23] MEDS ORDERED: SODIUM BICARB 8.4% 50 MEQ/50 ML (ABBOTT) SYR IV NR (16:30)
[2021-01-23] MEDS ORDERED: CALCIUM CHLORIDE 1 GM/10 ML (IMS) SYR INJ NR (16:30)
[2021-01-23] MEDS ORDERED: inSUlin (REGULAR) HUMAN 1 UNIT/0.01 ML (CHARGE PER UNIT) IV NR (16:30)
[2021-01-23] MEDS ORDERED: DEXTROSE 50% 50 ML (IMS) SYR IV NR (16:30)
--- NOTE | 2021-01-23 17:50 | Wound Care Assessment ---
Wound Care Assessment Date Seen by Provider: Jan 23, 2021 Time Seen by Provider: 17:43 Chief Complaint Lower extremity wounds HPI Pleasant 65 year old patient admitted in ICU with congestive heart failure. She has several chronic wounds (bilateral lower extremities) that she states have been present for last 2 months. She has been diuresed and LE edema appears to have greatly improved. Her wound healing will be complicated by diabetes (currently reasonable control), CHF with persistent edema, peripheral vascular disease, significant acute renal injury, , tobaccoism, PEM and anemia. She is also a 40 pack year smoker and smokes 1 ppd currently. Her latest Hgb is 7.4 (post transfusion), GFR is 19, Albumin is 2.7, and FOBT is positive. She appears poorly motivated for lifestyle changes currently. She currently has what appears to be a gauze dressing in place (last changed this a.m. and soaked through with serosanguinous drainage). Past Medical History: Admits Diabetes Type II, Admits Heart Disease CHF, Peripheral vascular disease, COPD, acute renal injury, tobacco abuse Smoking Status: Current Everyday Smoker (1ppd x 40 years) Review of Systems General: Other (obesity) Cardiovascular: Chest Pain (on admission) Neurological: Weakness (generalized) Exam Vital Signs Date Time Temp Pulse Resp B/P (MAP) Pulse Ox O2 Delivery O2 Flow Rate FiO2 01/23/21 17:34 36.6 51 20 150/65 97 Nasal Cannula 2.00 01/22/21 22:04 100 Capillary Refill : Less Than 3 Seconds General Appearance: no apparent distress, obese HEENT: PERRL/EOMI Neck: full range of motion Cardiovascular: other (1+ edema) Respiratory: no respiratory distress, no accessory muscle use Extremities: normal range of motion Neurologic/Psychiatric: alert, oriented x 3, depressed affect Skin: normal color, cyanosis Skin Problem Location: lower extremities Skin Character: drainage, scales (RLE with brawny edema and some scaling), other (Wound description R. posterior calf: 10.0x7.5x0.1 cm, There is no tunneling or undermining, wound is partial thickness, drainage is large and serosanguinous, margins are flat, granulation is small and pink, necrotic is large and slough. There is no epithelialization. Wound description of L. anterior calf: 1.1x0.5x0.1 cm. There is no drainage, tunneling or undermining. Wound margins are flat, there is no epithelialization or granulation there is large eschar and slough. ) Results Laboratory Tests 01/22/21 22:07: White Blood Count 7.6, Red Blood Count 2.44L, Hemoglobin 6.7*L, Hematocrit 23L, Mean Corpuscular Volume 96, Mean Corpuscular Hemoglobin 27, Mean Corpuscular Hemoglobin Concent 29L, Red Cell Distribution Width 16.9H, Platelet Count 178, Mean Platelet Volume 10.0, Immature Granulocyte % (Auto) 1, Neutrophils (%) (Auto) 78H, Lymphocytes (%) (Auto) 11L, Monocytes (%) (Auto) 7, Eosinophils (%) (Auto) 3, Basophils (%) (Auto) 1, Neutrophils # (Auto) 5.9, Lymphocytes # (Auto) 0.8L, Monocytes # (Auto) 0.5, Eosinophils # (Auto) 0.2, Basophils # (Auto) 0.0, Immature Granulocyte # (Auto) 0.1, Prothrombin Time 21.7H, INR Comment 1.8H, Activated Partial Thromboplast Time 47H, Sodium Level 135, Potassium Level 5.4H, Chloride Level 105, Carbon Dioxide Level 20L, Anion Gap 10, Blood Urea Nitrogen 55H, Creatinine 2.48H, Estimat Glomerular Filtration Rate 20, BUN/Creatinine Ratio 22, Glucose Level 238H, Calcium Level 7.9L, Corrected Calcium 8.9, Magnesium Level 1.9, Total Bilirubin 0.2, Aspartate Amino Transf (AST/SGOT) 22, Alanine Aminotransferase (ALT/SGPT) 17, Alkaline Phosphatase 68, Total Creatine Kinase 184H, Creatine Kinase MB 8.6*H, Myoglobin 177.9H, Troponin I 0.091H, B- Type Natriuretic Peptide 2028.1H, Total Protein 6.4, Albumin 2.7L, Amylase Level 73, Lipase 24 01/23/21 06:10: Stool Occult Blood Immunoassay POSITIVEH 01/23/21 06:34: Glucometer 146H 01/23/21 06:50: White Blood Count 5.0, Red Blood Count 2.67L, Hemoglobin 7.5L, Hematocrit 26L, Mean Corpuscular Volume 96, Mean Corpuscular Hemoglobin 28, Mean Corpuscular Hemoglobin Concent 29L, Red Cell Distribution Width 17.4H, Platelet Count 162, Mean Platelet Volume 9.9, Immature Granulocyte % (Auto) 1, Neutrophils (%) (Auto) 68, Lymphocytes (%) (Auto) 17, Monocytes (%) (Auto) 9, Eosinophils (%) (Auto) 4, Basophils (%) (Auto) 1, Neutrophils # (Auto) 3.4, Lymphocytes # (Auto) 0.8L, Monocytes # (Auto) 0.5, Eosinophils # (Auto) 0.2, Basophils # (Auto) 0.0, Immature Granulocyte # (Auto) 0.0, Sodium Level 134L, Potassium Level 5.1H, Chloride Level 103, Carbon Dioxide Level 21, Anion Gap 10, Blood Urea Nitrogen 55H, Creatinine 2.49H, Estimat Glomerular Filtration Rate 19, BUN/Creatinine Ratio 22, Glucose Level 165H, Calcium Level 7.9L, Corrected Calcium 8.9, Magnesium Level 2.0, Total Bilirubin 0.3, Aspartate Amino Transf (AST/SGOT) 21, Alanine Aminotransferase (ALT/SGPT) 16, Alkaline Phosphatase 69, Total Protein 6.4, Albumin 2.7L, Phosphorus Level 5.2H, Triglycerides Level 191H, Cholesterol Level 124, LDL Cholesterol Direct 72, VLDL Cholesterol 38, HDL Cholesterol 22L 01/23/21 11:41: Glucometer 136H 01/23/21 13:10: White Blood Count 5.1, Red Blood Count 2.72L, Hemoglobin 7.4L, Hematocrit 26L, Mean Corpuscular Volume 95, Mean Corpuscular Hemoglobin 27, Mean Corpuscular Hemoglobin Concent 29L, Red Cell Distribution Width 17.4H, Platelet Count 164, Mean Platelet Volume 10.0, Sodium Level 134L, Potassium Level 5.5H, Chloride Level 104, Carbon Dioxide Level 22, Anion Gap 8, Blood Urea Nitrogen 54H, Creatinine 2.52H, Estimat Glomerular Filtration Rate 19, BUN/Creatinine Ratio 21, Glucose Level 156H, Calcium Level 8.0L 01/23/21 14:00: SARS-CoV-2 RNA (RT-PCR) Not Detected 01/23/21 15:21: Glucometer 148H 01/23/21 17:31: Glucometer 179H Microbiology 01/23/21 MRSA Screen - Preliminary, Resulted Microbiology 01/23/21 MRSA Screen - Preliminary, Resulted Assessment/Plan/Dx Assessment: 1. RLE posterior calf ulcer: Partial thickness VLU/Lymphedema 2. LLE anterior calf ulcer: Full thickness VLU/lymphedema Plan: 1. Cleanse wounds with NS 2. Cover wound bed with silver alginate hydrofiber (Aquacel Ag), gauze, and roller gauze. Secure with medipore tape. 3. Change dressings twice daily and prn if soaked 4. Elevate legs above level of heart as much as possible (shivani. if lying in bed). 5. Check prealbumin. Supplement protein as indicated. 6. Smoking cessation advised 7. Adequate glycemic control advised. 8. Correction of underlying medical ailments per primary team's capable hands. DEEP REINA MD Jan 23, 2021 17:50
[2021-01-23 21:12] LABS: POTASSIUM 5.4 MMOL/L (3.6-5.0)
[2021-01-23 21:18] LABS: CREATININE SERUM 2.78 MG/DL (0.60-1.30)
[2021-01-23] MEDS: RANOLAZINE ER 500 MG TAB (RANEXA) PO SCH (21:18)
[2021-01-24 05:58] LABS: BASOPHILS % (AUTO) 1 % (0-10); EOSINOPHILS # (AUTO) 0.2 10^3/uL (0.0-0.3); EOSINOPHILS % (AUTO) 2 % (0-10); HEMATOCRIT 26 % (35-52); HEMOGLOBIN 7.6 g/dL (11.5-16.0); LYMPHOCYTES # (AUTO) 0.7 10^3/uL (1.0-4.0); LYMPHOCYTES % (AUTO) 10 % (12-44); MEAN CORPUSCULAR HEMOGLOBIN 27 pg (25-34); MEAN CORPUSCULAR HGB CONC 29 g/dL (32-36); MEAN CORPUSCULAR VOLUME 94 fL (80-99); MEAN PLATELET VOLUME 10.1 fL (9.0-12.2); MONOCYTES # (AUTO) 0.5 10^3/uL (0.0-1.0); MONOCYTES % (AUTO) 8 % (0-12); NEUTROPHILS # (AUTO) 5.2 10^3/uL (1.8-7.8); NEUTROPHILS % (AUTO) 78 % (42-75); PLATELET COUNT 156 10^3/uL (130-400); WHITE BLOOD COUNT 6.6 10^3/uL (4.3-11.0)
[2021-01-24] MEDS: FUROSEMIDE 40 MG/4 ML INJ (LASIX) IVP SCH ×2 (06:05→18:05)
[2021-01-24 06:07] LABS: ALBUMIN 2.7 GM/DL (3.2-4.5)
[2021-01-24 06:08] LABS: CALCIUM 8.3 MG/DL (8.5-10.1)
[2021-01-24 06:10] LABS: TOTAL PROTEIN 6.3 GM/DL (6.4-8.2)
[2021-01-24] MEDS: inSUlin ASPART (NovoLOG) 1 UNIT/0.01 ML (CHARGE PER UNIT) SC SCH ×4 (06:10→20:35)
[2021-01-24 06:12] LABS: BILIRUBIN,TOTAL 0.4 MG/DL (0.1-1.0)
[2021-01-24 06:13] LABS: CREATININE SERUM 2.99 MG/DL (0.60-1.30)
[2021-01-24] MEDS: ASPIRIN E.C. 81 MG (ECOTRIN) TAB PO SCH (08:49)
[2021-01-24] MEDS: RANOLAZINE ER 500 MG TAB (RANEXA) PO SCH ×2 (08:49→20:23)
[2021-01-24] MEDS: PANTOPRAZOLE 40 MG (PROTONIX) VIAL IV SCH (08:49)
[2021-01-24] MEDS ORDERED: ISOSORBIDE MONONITRATE 30 MG (IMDUR) TAB PO SCH (09:00)
[2021-01-24] MEDS ORDERED: SOD POLYSTERENE 15 GM/60 ML (KAYEXALATE) UNIT DOSE PO ONE ×2 (09:00→11:00)
--- NOTE | 2021-01-24 09:13 | Progress Note - Cardiology ---
Cardiology SOAP Progress Note Subjective: Sitting up in recliner at the bedside No c/o CP or SOB C/O fatigue Objective: I&O/Vital Signs Weight (Pounds): 179 Weight (Ounces): 5.0 Weight (Calculated Kilograms): 81.390067 Constitutional: AAO x 3, well-developed, well-nourished Respiratory: No accessory muscle use, No respiratory distress; chest expansion is symmetric, chest is bilaterally symmetric, rhonchi (scattered), other (coarse breath sounds) Cardiovascular: regular rate-rhythm; No JVD; S1 and S2 Gastrointestional: No tender; soft, round, audible bowel sounds Extremities: no lower extremity edema bilateral Neurologic/Psychiatric: grossly intact (moves all extremities) Skin: pallor, other (dressing to bilat LE) Results/Procedures: Labs Microbiology 01/23/21 MRSA Screen - Final, Complete MRSA not isolated A/P: Assessment: NSTEMI with NICM - she has opted for conservative management only Anemia - d/t suspected GIB Acute on chronic renal insufficiency - advanced to renal failure with hyperkalemia - 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 Willoughby showed LVEF 30-35%. Grade 2 diastolic dysfunction. Mod MR. PASP 45-50mmHg - Life Vest placed - 08-17-2020 PAF - seen during hospitalization of 06/18/19 with a controlled vent response - currently SR - Xarelto for stroke prophylaxis - hold d/t suspected GIB CAD: - Ac NSTEMI in May and June 2019, likely related to small vessel disease (based on results of cath of May 2019 when she had presented with a similar syndrome). - Card cath of 05/17/19: 20-30% ostial LMCA & distal LMCA and ostial LAD, patent LAD stent (3x24 PARAMJIT placed in Jan 2018 at [facility]), mild to mod diffuse CAD and cor calcification of the L cor system; RCA known to be chronically occluded collateralized from the L (as reported on card cath of [address] Merino); LVEDP 28 mmHg - MPI on 07-12-[address] Willoughby: Baseline left bundle branch block persisted during test . Patchy uptake with fixed defect involving the inferior wall, fixed defect at the base of the anterior wall, mild reversible ischemia involving the anterior wall and anterior apical segment . Dilated left ventricle with severe diffuse left ventricular hypokinesia, EF 21% - viability study on 07-19-[address] Willoughby: viable myocardium involving the lateral, inferolateral, and inferior wall - Most recent cardiac cath of 09-04-20 - Diffuse [id number] disease of the left coronary system without significant focal stenoses. There is a patent stent in the proximal left anterior descending that is known to be a drug-eluting stent measuring 3.0 x 24 mm and that was placed in 01/2018 in [place], [place]. The right coronary artery is chronically occluded at its ostium and is collateralized from the left coronary system. Elevated left ventricular end- diastolic pressure of approximately 27 mmHg. PAD - Bilateral ostial SFA occlusions seen on angiogram of Jan [address] Merino - previously followed by Dr. Sanz Non-compliance with medications, Life Vest and f/u HTN - controlled HLD - statin tx - managed by PCP DM II - h/o diabetic neuropathy Medication intolerance - Previously not suitable for beta-bernard. H/o up to 2.4 sec pause while on beta-bernard (07-28-18); Toprol Acute on chronic exacerabation of COPD - managed by PCP Chronic tobaccoism - cessation advised Suspected sleep apnea - supplemental oxygen at COVID (+) - November 2020 - Hospitalized at [facility] Peripheral wounds - management has been out pt per Dr. Menon (her PCP) Plan: Complex management issue d/t multiple cardiac issues and non-compliance Acute on chronic renal failure with hyperkalemia NSTEMI with NICM for which she herself has opted for conservative management only. Refuses Life Vest / ICD We will start Coreg 6.25mg BID and Imdur 30mg daily Not a suitable candidate for RENAY or ARB or Entresto d/t renal failure with hyperkalemia Suspected GIB - we advise evaluation and treatment. Once GIB source has been determined and treated we advise OAC be resumed, however, she is not a suitable candidate for Xarelto d/t CKD. We advise tx with Eliquis or warfarin. Management of peripheral wounds is per medical services Consider transfer to tertiary care facility with nephrology services if renal function continues to worsen Clinical Quality Measures AMI/AHF: ASA po Prior to arrival: Yes FENG NEGRON Jan 24, 2021 09:13
[2021-01-24] MEDS ORDERED: DEXTROSE 50% 50 ML (IMS) SYR IV ONE (09:15)
[2021-01-24] MEDS ORDERED: CALCIUM GLUC. 10% 4.65 MEQ/10 ML VIAL IV ONE (09:15)
[2021-01-24] MEDS ORDERED: inSUlin (REGULAR) HUMAN 1 UNIT/0.01 ML (CHARGE PER UNIT) IV ONE (09:15)
--- NOTE | 2021-01-24 09:52 | Pulmonary Progress Note ---
Subjective Date Seen by a Provider: Jan 24, 2021 Time Seen by a Provider: 09:43 Subjective/Events-last exam Pt initially admitted to ICU for acute anemia in setting of GI bleed now transferred to floor for further management. No major events overnight. States feels her breathing has improved. Sepsis Event Evaluation Height, Weight, BMI Height: 5'2.00" Weight: 179lbs. 5.0oz. 81.316828my; 40.51 BMI Method:Stated Exam Exam Patient acknowledged, consented, and participated in this virtual visit which was conducted using real time audio/video Vital Signs Date Time Temp Pulse Resp B/P (MAP) Pulse Ox O2 Delivery O2 Flow Rate FiO2 01/24/21 08:51 36.7 87 20 132/57 98 Room Air 01/24/21 04:00 36.5 47 18 116/41 90 Nasal Cannula 2.00 01/23/21 23:30 36.6 53 18 132/68 90 Nasal Cannula 2.00 01/23/21 20:50 Nasal Cannula 2.00 01/23/21 19:54 36.4 77 20 175/63 98 Nasal Cannula 2.00 01/23/21 17:34 36.6 51 20 150/65 97 Nasal Cannula 2.00 01/23/21 17:30 Nasal Cannula 2.00 01/23/21 15:53 36.4 01/23/21 12:50 43 01/23/21 12:39 35.9 46 18 103/49 97 Nasal Cannula 2.00 01/23/21 12:28 Nasal Cannula 2.00 I & O 01/24/21 07:00 Intake Total 2195 ml Output Total 2200 ml Balance -5 ml Height & Weight Height: 5'2.00" Weight: 179lbs. 5.0oz. 81.484620ld; 40.51 BMI Method:Stated General Appearance: No No Apparent Distress, No WD/WN, No Anxious; Chronically ill; No Cachetic, No Mild Distress, No Moderate Distress; Obese; No Severe Distress, No Thin, No Other HEENT: PERRL/EOMI; No TMs Normal; Normal ENT Inspection, Pharynx Normal, Moist Mucous Membranes; No Pale Conjunctivae (L), No Pale Conjunctivae (R), No Pharyngeal Erythema, No Photophobia, No Scleral Icterus (L), No Scleral Icterus (R), No TM Abnormal (L), No TM Abnormal (R), No Tonsillar Exudate, No Tonsillar Enlargement, No Other Neck: Full Range of Motion, Normal Inspection, Non Tender; No Supple, No Carotid Bruit, No JVD, No Limited Range of Motion, No Lymphadenopathy (L), No Lymphadenopathy (R), No Tender Lateral, No Tender Midline, No Thyromegaly, No Other Respiratory: Chest Non Tender, Lungs Clear, Normal Breath Sounds, No Accessory Muscle Use, No Respiratory Distress; No Accessory Muscle Use, No Crackles; Decreased Breath Sounds; No Expiration, No Inspiration, No Pleural Rub, No Rales, No Respiratory Distress, No Rhonci, No Stridor, No Wheezing, No Other Cardiovascular: Regular Rate, Rhythm, No Edema, No Gallop, No JVD, No Murmur, Normal Peripheral Pulses; No Bradycardia, No Diastolic Murmur, No Systolic Murmur, No Extra Beats, No Friction Rub, No Gallop/S3, No Gallop/S4, No Irregularly Irregular, No JVD, No Tachycardia, No Other Capillary Refill: Less Than 3 Seconds Gastrointestinal: No normal bowel sounds, No non tender, No soft, No no organomegaly, No no pulsatile mass, No abnormal bowel sounds, No distended, No guarding, No rebound, No tenderness, No hernia, No mass, No hepatomegaly, No spleenomegaly, No other Extremity: Normal Capillary Refill, Normal Inspection, Normal Range of Motion, Non Tender, No Calf Tenderness, No Pedal Edema; No Calf Tenderness, No Inflammation, No Pedal Edema, No Pelvis Stable, No Slow Capillary Refill, No Swelling, No Other Neurologic/Psychiatric: Alert, Oriented x3, No Motor/Sensory Deficits, Normal Mood/Affect; 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 Norm as Tested, No Abnormal Cerebellar Tests, No A bnormal laundry marker supervisor II-XII, No Abnormal Gait, No Aphasia, No Depressed Affect, No Disoriented, No EOM Palsy, No Facial Droop, No Motor Weakness, No Sensory Deficit, No Other Skin: Normal Color, Warm/Dry; No Cool, No Cyanosis, No Damp, No Diaphoresis, No Ecchymosis, No Erythema, No Jaundice, No Mottled, No Pallor, No Petechia, No Rash, No Tattoos/Piercings, No Other Lymphatic: No Adenopathy; No Axilla Node Tender (L), No Axilla Node Tender (R), No Inguinal Node Tender (L), No Inguinal Node Tender (R), No Other Results Lab Laboratory Tests 01/22/21 22:07 01/23/21 06:50 01/23/21 13:10 01/23/21 20:43 01/24/21 05:51 Assessment/Plan Assessment/Plan A/P: Pt with multiple comorbities (NSTEMI with NICM, h/o CAD, COVID pneumonia, COPD, KUMAR) admitted to ICU for acute blood loss in setting of GI Bleed. Pulmonary consulted for SOB. -Likely multifactorial in setting of acute of blood loss. Review of CXR showed improved aeration of the lungs. Hgb today stable at 7.6 and patient no longer requiring transfusions. Per nursing noted to have coarse breath sounds on right. -Would cont conservative management of NSTEMI per cards -Would restart patients home albuterol prn. Would cont to monitor closely for signs of fluid overload (Admission BNP> 1000) -Rest of mgmt per primary. Plans in collaboration with bedside consultants and IM MDs. Discussed with RN to reach out if any questions or concerns Advance Care Discussion: initiate discussion, clarifying prognosis Time spent on discussion(mins): 35 minutes MATTHEW RM MD Jan 24, 2021 09:51
--- NOTE | 2021-01-24 09:57 | Physical Therapy Daily Note ---
PT Daily Note-Current Subjective Patient agrees to PT. Mental Status Patient Orientation: Person, Time, Situation Attachments: Cade Catheter Transfers SCALE: Activities may be completed with or without assistive devices. 7-Qjtlghdlyo-duafqwp completes the activity by him/herself with no assistance from a helper. 5-Set-up or Clean-up Assistance-helper sets up or cleans up; patient completes activity. [place] assists only prior to or following the activity. 4-Supervision or Touching Assistance-helper provides verbal cues and/or touching/steadying and/or contact guard assistance as patient completes activity. Assistance may be provided throughout the activity or intermittently. 3-Partial/Moderate Assistance-helper does LESS THAN HALF the effort. [place] lifts, holds or supports trunk or limbs, but provides less than half the effort. 2-Substantial/Maximal Assistance-helper does MORE THAN HALF the effort. [place] lifts or holds trunk or limbs and provides more than half the effort. 8-Ybsnetbui-xykmgd does ALL the effort. Patient does none of the effort to complete the activity. Or, the assistance of 2 or more helpers is required for the patient to complete the activity. If activity was not attempted, code reason: 7-Patient Refused. 9-Not Applicable-not attempted and the patient did not perform the activity before the current illness, exacerbation or injury. 10-Not Attempted due to Environmental Limitations-(lack of equipment, weather restraints, etc.). 88-Not Attempted due to Medical Conditions or Safety Concerns. Sit to Stand (QC): 3 Chair/Tha-dx-Htygl Xfer(QC): 3 very unsteady/shaky gait sequence Gait Training Distance: 30' x 2 Walk 10 feet (QC): 3 Gait Assistive Device: FWW slightly unsteady gait sequence/impulsive Assessment Patient in recliner with chair alarm activated. Patient is unaware of safety concerns. PT to increase activity as tolerated by patient. PT Financial Aid Coordinator Goals Financial Aid Coordinator Goals PT Alf Goals Time Frame: Jan 30, 2021 Roll Left & Right (QC): 6 Sit to Lying (QC): 6 Lying-Sitting on Side/Bed(QC): 6 Sit to Stand (QC): 4 (SBA) Chair/Vpy-wk-Qbupo Xfer(QC): 4 (SBA) Walk 10 feet (QC): 4 (SBA) Walk 50ft with 2 Turns (QC): 4 (SBA) Walk 150 ft (QC): 4 (SBA) PT Plan Treatment/Plan Treatment Plan: Continue Plan of Care Treatment Plan: Bed Mobility, Education, Functional Activity Марина, Functional Strength, Gait, Safety, Therapeutic Exercise, Transfers Treatment Duration: Jan 30, 2021 Frequency: 6 times per week Estimated Hrs Per Day: .25 hour per day Patient and/or Family Agrees t: Yes Time/GCodes Time In: 815 Time Out: 826 Total Billed Treatment Time: 11 Total Billed Treatment 1 visit FA 11 min LARY JOYNER PT Jan 24, 2021 09:57
[2021-01-24] MEDS: NS IV 1000 ML 1,000 ML IV SCH (11:16)
[2021-01-24] MEDS ORDERED: NS IV 500 ML 500 ML IV SCH (11:45)
--- NOTE | 2021-01-24 11:57 | Progress Note - Cardiology ---
Cardiology SOAP Progress Note Subjective: Gen weakness and malaise Shortness of breath with activity Denies cp or palp or syncope No n/v/d Objective: I&O/Vital Signs 01/24/21 01/24/21 01/24/21 04:00 08:51 11:34 Temp 36.5 36.7 36.5 Pulse 47 87 43 Resp 18 20 18 B/P (MAP) 116/41 132/57 135/63 Pulse Ox 90 98 92 O2 Delivery Nasal Cannula Room Air Nasal Cannula O2 Flow Rate 2.00 2.00 01/24/21 00:00 Intake Total 1395 ml Output Total 1050 ml Balance 345 ml Weight (Pounds): 179 Weight (Ounces): 5.0 Weight (Calculated Kilograms): 81.891252 Constitutional: AAO x 3, well-developed, well-nourished Respiratory: No accessory muscle use, No respiratory distress; chest expansion is symmetric, chest is bilaterally symmetric, rhonchi (scattered), other (coarse breath sounds) Cardiovascular: regular rate-rhythm; No JVD; S1 and S2 Gastrointestional: No tender; soft, round, audible bowel sounds Extremities: no lower extremity edema bilateral Neurologic/Psychiatric: grossly intact (moves all extremities) Skin: pallor, other (dressing to bilat LE) Results/Procedures: Labs Laboratory Tests 01/23/21 13:10: White Blood Count 5.1, Red Blood Count 2.72L, Hemoglobin 7.4L, Hematocrit 26L, Mean Corpuscular Volume 95, Mean Corpuscular Hemoglobin 27, Mean Corpuscular Hemoglobin Concent 29L, Red Cell Distribution Width 17.4H, Platelet Count 164, Mean Platelet Volume 10.0, Sodium Level 134L, Potassium Level 5.5H, Chloride Level 104, Carbon Dioxide Level 22, Anion Gap 8, Blood Urea Nitrogen 54H, Creatinine 2.52H, Estimat Glomerular Filtration Rate 19, BUN/Creatinine Ratio 21, Glucose Level 156H, Calcium Level 8.0L 01/23/21 14:00: SARS-CoV-2 RNA (RT-PCR) Not Detected 01/23/21 15:21: Glucometer 148H 01/23/21 17:31: Glucometer 179H 01/23/21 20:17: Glucometer 145H 01/23/21 20:43: Sodium Level 135, Potassium Level 5.4H, Chloride Level 103, Carbon Dioxide Level 21, Anion Gap 11, Blood Urea Nitrogen 56H, Creatinine 2.78H, Estimat Glomerular Filtration Rate 17, BUN/Creatinine Ratio 20, Glucose Level 140H, Calcium Level 9.0 01/24/21 05:51: Sodium Level 130L, Potassium Level 6.0H, Chloride Level 102, Carbon Dioxide Level 19L, Anion Gap 9, Blood Urea Nitrogen 60H, Creatinine 2.99H, Estimat Glomerular Filtration Rate 16, BUN/Creatinine Ratio 20, Glucose Level 189H, Calcium Level 8.3L, White Blood Count 6.6, Red Blood Count 2.77L, Hemoglobin 7.6L, Hematocrit 26L, Mean Corpuscular Volume 94, Mean Corpuscular Hemoglobin 27, Mean Corpuscular Hemoglobin Concent 29L, Red Cell Distribution Width 17.3H, Platelet Count 156, Mean Platelet Volume 10.1, Immature Granulocyte % (Auto) 0, Neutrophils (%) (Auto) 78H, Lymphocytes (%) (Auto) 10L, Monocytes (%) (Auto) 8, Eosinophils (%) (Auto) 2, Basophils (%) (Auto) 1, Neutrophils # (Auto) 5.2, Lymphocytes # (Auto) 0.7L, Monocytes # (Auto) 0.5, Eosinophils # (Auto) 0.2, Basophils # (Auto) 0.0, Immature Granulocyte # (Auto) 0.0, Corrected Calcium 9.3, Total Bilirubin 0.4, Aspartate Amino Transf (AST/SGOT) 27, Alanine Aminotransferase (ALT/SGPT) 19, Alkaline Phosphatase 70, Total Protein 6.3L, Albumin 2.7L 01/24/21 08:22: Glucometer 167H 01/24/21 10:31: Glucometer 226H Microbiology 01/23/21 MRSA Screen - Final, Complete MRSA not isolated Laboratory Tests 01/22/21 22:07 01/23/21 06:50 01/23/21 13:10 01/23/21 20:43 01/24/21 05:51 A/P: Assessment: Acute on chronic renal insufficiency - 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 Willoughby showed LVEF 30-35%. Grade 2 diastolic dysfunction. Mod MR. PASP 45-50mmHg - Life Vest placed - 08-17-2020 PAF - seen during hospitalization of 06/18/19 with a controlled vent response - currently SR - Xarelto for stroke prophylaxis - hold d/t suspected GIB CAD: - Ac NSTEMI in May and June 2019, likely related to small vessel disease (based on results of cath of May 2019 when she had presented with a similar syndrome). - Card cath of 05/17/19: 20-30% ostial LMCA & distal LMCA and ostial LAD, patent LAD stent (3x24 PARAMJIT placed in Jan [address] [facility]), mild to mod diffuse CAD and cor calcification of the L cor system; RCA known to be chronically occluded collateralized from the L (as reported on card cath of [address] Merino); LVEDP 28 mmHg - MPI on 07-12-[address] Willoughby: Baseline left bundle branch block persisted during test . Patchy uptake with fixed defect involving the inferior wall, fixed defect at the base of the anterior wall, mild reversible ischemia involving the anterior wall and anterior apical segment . Dilated left ventricle with severe diffuse left ventricular hypokinesia, EF 21% - viability study on 07-19-[address] Willoughby: viable myocardium involving the lateral, inferolateral, and inferior wall - Most recent cardiac cath of 09-04-20 - Diffuse omzj-ty-fstciecq disease of the left coronary system without significant focal stenoses. There is a patent stent in the proximal left anterior descending that is known to be a drug-eluting stent measuring 3.0 x 24 mm and that was placed in 01/2018 in [place], [place]. The right coronary artery is chronically occluded at its ostium and is collateralized from the left coronary system. Elevated left ventricular end- diastolic pressure of approximately 27 mmHg. PAD - Bilateral ostial SFA occlusions seen on angiogram of Jan [address] Merino - previously followed by Dr. Sanz Non-compliance with medications, Life Vest and f/u HTN - controlled HLD - statin tx - managed by PCP DM II - h/o diabetic neuropathy Medication intolerance - Previously not suitable for beta-bernard. H/o up to 2.4 sec pause while on beta-bernard (07-28-18); Toprol Acute on chronic exacerabation of COPD - managed by PCP Chronic tobaccoism - cessation advised Suspected sleep apnea - supplemental oxygen at COVID (+) - November 2020 - Hospitalized at [facility] Peripheral wounds - management has been out pt per Dr. Menon (her PCP) Plan: Complex management issue d/t multiple cardiac issues, non-compliance, and renal failure that has progressed during this admission Acute on chronic renal failure with hyperkalemia Treat hyperkalemia. See orders. Also recommend Kayexelate when oral intake allowed. Monitor labs closely Not a suitable candidate for RENAY or ARB or Entresto d/t renal failure with hyperkalemia Suspected GIB - we advise evaluation and treatment. Once GIB source has been determined and treated we advise OAC be resumed, however, she is not a suitable candidate for Xarelto d/t CKD. We advise tx with Eliquis or warfarin. Management of peripheral wounds is per Medical services Consider transfer to tertiary care facility with nephrology services if renal function continues to worsen Clinical Quality Measures AMI/AHF: ASA po Prior to arrival: Yes JOSE MIGUEL ALCALA MD FACP FAC CCDS Jan 24, 2021 11:57
--- NOTE | 2021-01-24 12:34 | Occ Therapy Progress Note ---
Therapy Progress Note Attempt x2 to see patient for OT treatment. Pt responds to verbal stimuli by opening eyes but then quickly shuts them and refuses to participate. She often mumbles to self after OT repeats self multiple times. OT to attempt again tomorrow if appropriate. Pennie Mars OT Jan 24, 2021 12:34
[2021-01-24 14:18] VITALS: BP 116/51
[2021-01-24 14:29] VITALS: BP_SYST 115; BP_DIAS 63; BP_DIAS 73
[2021-01-24] MEDS ORDERED: SOD POLYSTERENE 15 GM/60 ML (KAYEXALATE) UNIT DOSE PO NR (15:30)
--- NOTE | 2021-01-24 15:34 | Progress Note - Hospitalist ---
JHONATHAN MCDONNELL 01/24/21 1534: Subjective HPI/CC On Admission Date Seen by Provider: Jan 24, 2021 Time Seen by Provider: 09:12 CC: Chest pain Subjective/Events-last exam Ms. Collins is a 65 y/o female with a PMHx of COVID. She has multiple comorbidities. This morning she was c/o tiredness and wanting to eat. An EGD was scheduled with Dr. Clement at one point but was not performed. She was taken off of NPO sttus and allowed to eat. She was given another blood transfusion to help with her anemia. She was upset during our encounter and was stating she wants to go home. Review of Systems General: No Chills; Fatigue Pulmonary: No Dyspnea, No Cough Cardiovascular: No: Chest Pain, Palpitations Gastrointestinal: No: Nausea, Vomiting Focused Exam Capillary Refill: Less Than 3 Seconds Peripheral Pulses: 2+ Radial Pulses (R), 2+ Radial Pulses (L) Objective Exam Vital Signs Vital Signs Date Time Temp Pulse Resp B/P (MAP) Pulse Ox O2 Delivery O2 Flow Rate FiO2 01/24/21 14:44 42 90/49 100 Nasal Cannula 2.00 01/24/21 14:29 36.8 18 01/22/21 22:04 100 Capillary Refill : Less Than 3 Seconds General Appearance: No Apparent Distress, Chronically ill HEENT: PERRL/EOMI, Moist Mucous Membranes; No Scleral Icterus (L), No Scleral Icterus (R) Neck: Normal Inspection, Non Tender; No Lymphadenopathy (L), No Lymphadenopathy (R) Respiratory: Chest Non Tender, Lungs Clear, Normal Breath Sounds, No Accessory Muscle Use, No Respiratory Distress Cardiovascular: Regular Rate, Rhythm, No Murmur, Normal Peripheral Pulses Gastrointestinal: Normal Bowel Sounds, Non Tender, Soft Extremity: Normal Capillary Refill, Normal Inspection, Non Tender Neurologic/Psychiatric: Alert, Oriented x3, No Motor/Sensory Deficits, Normal Mood/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 Assessment/Plan Assessment and Plan Assess & Plan/Chief Complaint Assessment: Chest pain Acute on chronic kidney disease - BUN 60 Cr 2.99 Electrolyte imbalance - Na 130, K 6, HCO3 19 Noncompliance Smoker Ischemic cardiomyopathy refuses LifeVest Plan: Conservative management Noncompliance Clinical Quality Measures AMI/AHF: ASA po Prior to arrival: Yes BRENDA DIAZ DO 01/25/21 0555: Subjective Subjective/Events-last exam Patient very flat Threatening to leave AMA constantly 1 unit of blood ordered Potassium improved with treatment Review of Systems General: Fatigue Objective Exam General Appearance: No Apparent Distress, WD/WN, Chronically ill, Obese Respiratory: Lungs Clear, Normal Breath Sounds Cardiovascular: Regular Rate, Rhythm Neurologic/Psychiatric: Alert, Oriented x3, Depressed Affect Assessment/Plan Assessment and Plan Assess & Plan/Chief Complaint Transfuse 1 unit Monitor potassium and creatinine Santosh has no beds Supervisory-Addendum Brief Verification & Attestation Participated in pt care: history, MDM, physical Personally performed: exam, history, MDM, supervision of care Care discussed with: Medical Student Procedures: n/a Results interpretation: Verified all documentation Verification and Attestation of Medical Student E/M Service A medical student performed and documented this service in my presence. I reviewed and verified all information documented by the medical student and made modifications to such information, when appropriate. I personally performed the physical exam and medical decision making. Brenda Diaz, Jan 25, 2021,05:54 JHONATHAN MCDONNELL Jan 24, 2021 15:34 BRENDA DIAZ DO Jan 25, 2021 05:55
[2021-01-25] MEDS: NS IV 1000 ML 1,000 ML IV SCH (02:54)
[2021-01-25] MEDS: inSUlin ASPART (NovoLOG) 1 UNIT/0.01 ML (CHARGE PER UNIT) SC SCH (05:55)
[2021-01-25] MEDS: FUROSEMIDE 40 MG/4 ML INJ (LASIX) IVP SCH (06:09)
[2021-01-25 08:44] LABS: BASOPHILS % (AUTO) 1 % (0-10); EOSINOPHILS # (AUTO) 0.1 10^3/uL (0.0-0.3); EOSINOPHILS % (AUTO) 2 % (0-10); HEMATOCRIT 29 % (35-52); HEMOGLOBIN 8.8 g/dL (11.5-16.0); LYMPHOCYTES # (AUTO) 0.5 10^3/uL (1.0-4.0); LYMPHOCYTES % (AUTO) 10 % (12-44); MEAN CORPUSCULAR HEMOGLOBIN 28 pg (25-34); MEAN CORPUSCULAR HGB CONC 30 g/dL (32-36); MEAN CORPUSCULAR VOLUME 91 fL (80-99); MEAN PLATELET VOLUME 10.4 fL (9.0-12.2); MONOCYTES # (AUTO) 0.4 10^3/uL (0.0-1.0); MONOCYTES % (AUTO) 8 % (0-12); NEUTROPHILS # (AUTO) 4.2 10^3/uL (1.8-7.8); NEUTROPHILS % (AUTO) 78 % (42-75); PLATELET COUNT 146 10^3/uL (130-400); WHITE BLOOD COUNT 5.3 10^3/uL (4.3-11.0)
[2021-01-25 09:04] LABS: ALBUMIN 2.8 GM/DL (3.2-4.5); BILIRUBIN,TOTAL 0.5 MG/DL (0.1-1.0); CREATININE SERUM 3.22 MG/DL (0.60-1.30); MAGNESIUM 1.8 MG/DL (1.6-2.4); POTASSIUM 4.3 MMOL/L (3.6-5.0); TOTAL PROTEIN 6.8 GM/DL (6.4-8.2)
--- NOTE | 2021-01-25 11:22 | Progress Note - Cardiology ---
Cardiology SOAP Progress Note Subjective: No cp or palp or syncope Gen malaise and weakness persistent No n/v/d No shortness of breath at rest Refuses to stay in the hosp any longer Objective: I&O/Vital Signs 01/25/21 01/25/21 01/25/21 01/25/21 00:03 00:24 03:43 08:23 Temp 36.5 36.4 36.4 Pulse 69 70 72 Resp 18 17 18 B/P (MAP) 181/67 190/83 170/73 162/71 Pulse Ox 94 94 93 O2 Delivery Room Air Room Air Room Air 01/25/21 00:00 Intake Total 990 ml Output Total 300 ml Balance 690 ml Weight (Pounds): 179 Weight (Ounces): 5.0 Weight (Calculated Kilograms): 81.012433 Constitutional: AAO x 3, well-developed, well-nourished Respiratory: No accessory muscle use, No respiratory distress; chest expansion is symmetric, chest is bilaterally symmetric, rhonchi (scattered), other (coarse breath sounds) Cardiovascular: regular rate-rhythm; No JVD; S1 and S2 Gastrointestional: No tender; soft, round, audible bowel sounds Extremities: no lower extremity edema bilateral Neurologic/Psychiatric: grossly intact (moves all extremities) Skin: pallor, other (dressing to bilat LE) Results/Procedures: Labs Laboratory Tests 01/24/21 12:10: Potassium Level 5.6H 01/24/21 15:58: Glucometer 109 01/24/21 20:35: Glucometer 166H 01/25/21 05:55: Glucometer 141H 01/25/21 08:29: White Blood Count 5.3, Red Blood Count 3.18L, Hemoglobin 8.8L, Hematocrit 29L, Mean Corpuscular Volume 91, Mean Corpuscular Hemoglobin 28, Mean Corpuscular Hemoglobin Concent 30L, Red Cell Distribution Width 17.8H, Platelet Count 146, Mean Platelet Volume 10.4, Immature Granulocyte % (Auto) 1, Neutrophils (%) (Auto) 78H, Lymphocytes (%) (Auto) 10L, Monocytes (%) (Auto) 8, Eosinophils (%) (Auto) 2, Basophils (%) (Auto) 1, Neutrophils # (Auto) 4.2, Lymphocytes # (Auto) 0.5L, Monocytes # (Auto) 0.4, Eosinophils # (Auto) 0.1, Basophils # (Auto) 0.0, Immature Granulocyte # (Auto) 0.0, Sodium Level 133L, Potassium Level 4.3, Chloride Level 100, Carbon Dioxide Level 19L, Anion Gap 14, Blood Urea Nitrogen 61H, Creatinine 3.22H, Estimat Glomerular Filtration Rate 14, BUN/Creatinine Ratio 19, Glucose Level 204H, Calcium Level 8.0L, Corrected Calcium 9.0, Magnesium Level 1.8, Total Bilirubin 0.5, Aspartate Amino Transf (AST/SGOT) 115H , Alanine Aminotransferase (ALT/SGPT) 90H, Alkaline Phosphatase 97, Total Protein 6.8, Albumin 2.8L Microbiology 01/23/21 MRSA Screen - Final, Complete MRSA not isolated Laboratory Tests 01/23/21 13:10 01/23/21 20:43 01/24/21 05:51 01/24/21 12:10 01/25/21 08:29 A/P: Assessment: Acute on chronic renal failure - CKD 4 likely due to diabetic nephropathy - Hyperkalemia on 01/24/21, now resolved, but renal function is worse NSTEMI with ICM - CAD stable on most recent cath of August 2020 (detailed below) - she has opted for conservative management only - Refuses Life Vest / ICD Anemia - d/t suspected GIB, managed by the Hosptalist nadeem Acute on Chronic systolic CHF (HFrEF) - treat with diuretics Ischemic cardiomyopathy - Echo of 05/17/19: LVEF 40-45%, grade 2 diastolic dysfunction, mod MR, enlarged LA, RVSP 30 mmHg - Echo of 07-11-[address] Willoughby showed LVEF 30-35%. Grade 2 diastolic dysfunction. Mod MR. PASP 45-50mmHg - Life Vest placed - 08-17-2020 PAF - seen during hospitalization of 06/18/19 with a controlled vent response - currently SR - Xarelto for stroke prophylaxis - hold d/t suspected GIB CAD: - Ac NSTEMI in May and June 2019, likely related to small vessel disease (based on results of cath of May 2019 when she had presented with a similar syndrome). - Card cath of 05/17/19: 20-30% ostial LMCA & distal LMCA and ostial LAD, patent LAD stent ([id number] PARAMJIT placed in Jan 2018 at [facility]), mild to mod diffuse CAD and cor calcification of the L cor system; RCA known to be chronically occluded collateralized from the L (as reported on card cath of [address] Merino); LVEDP 28 mmHg - MPI on 07-12-[address] Willoughby: Baseline left bundle branch block persisted during test . Patchy uptake with fixed defect involving the inferior wall, fixed defect at the base of the anterior wall, mild reversible ischemia involving the anterior wall and anterior apical segment . Dilated left ventricle with severe diffuse left ventricular hypokinesia, EF 21% - viability study on 07-19-[address] Willoughby: viable myocardium involving the lateral, inferolateral, and inferior wall - Most recent cardiac cath of 09-04-20 - Diffuse [id number] disease of the left coronary system without significant focal stenoses. There is a patent stent in the proximal left anterior descending that is known to be a drug-eluting stent measuring 3.0 x 24 mm and that was placed in 01/2018 in [place], [place]. The right coronary artery is chronically occluded at its ostium and is collateralized from the left coronary system. Elevated left ventricular end-di astolic pressure of approximately 27 mmHg. PAD - Bilateral ostial SFA occlusions seen on angiogram of Jan [address] Merino - previously followed by Dr. Sanz Non-compliance with medications, Life Vest and f/u HTN - controlled HLD - statin tx - managed by PCP DM II - h/o diabetic neuropathy Medication intolerance - Previously not suitable for beta-bernard. H/o up to 2.4 sec pause while on beta-bernard (07-28-18); Toprol Acute on chronic exacerabation of COPD - managed by PCP Chronic tobaccoism - cessation advised Suspected sleep apnea - supplemental oxygen at hs COVID (+) - November 2020 - Hospitalized at [facility] Peripheral wounds - management has been out pt per Dr. Menon (her PCP) Plan: Complex management issue d/t multiple cardiac issues, non-compliance, and renal failure that has progressed during this admission Not a suitable candidate for RENAY or ARB or Entresto d/t renal failure with hyperkalemia Suspected GIB - we advise evaluation and treatment. Once GIB source has been determined and treated we advise OAC be resumed, however, she is not a suitable candidate for Xarelto d/t CKD. We advise tx with Eliquis or warfarin. Management of peripheral wounds is per Medical services She is insisting on leaving AMA. I had a long and detailed discussion with her and urged her to stay. I informed her condition is not stable and there is high risk of worsening that can potentially lead to fatal consequences. She understand all issues and refuses to stay Clinical Quality Measures AMI/AHF: ASA po Prior to arrival: Yes JOSE MIUGEL ALCALA MD FACP FAC CCDS Jan 25, 2021 11:22
--- NOTE | 2021-01-25 11:58 | Discharge Summary ---
Discharge Summary Hospital Course Was the Problem List Reviewed?: Yes Problems/Dx: (1) Chest pain Status: Acute (2) Elevated troponin Status: Acute (3) Insulin dependent diabetes mellitus Status: Chronic (4) Heart failure (5) Type 2 diabetes mellitus with complication Status: Chronic (6) Chronic renal insufficiency Status: Acute (7) Smoker Status: Chronic Hospital Course Date of Admission: Jan 22, 2021 at 23:00 Admission Diagnosis : Family Physician/Provider: Bear Menon MD Date of Discharge: 01/25/21 Discharge Diagnosis: Chest pain, severe anemia requiring transfusions, smoker, COPD, CKD Hospital Course: Ms. Collins is a 65 y/o woman with a PMHx of COVID, CKD, CAD, and ischemic cardiomyopathy who presented to the ED on 22 January for sharp chest pain that radiated down her arm with associated SOB and nausea. She reported taking nitro to no avail. She has a long history of CAD with stenting and cardiomyopathy with a Life Vest. Patient does not wear Life Vest. She was seen by Dr. Buenrostro throughout her stay in the hospital. Her son recently from COVID in November causing her to "not care about anything after that." She wears oxygen at home. Patient is noncompliant and receives most of her care in [place]. She does not f/u with many outpatient appointments. Her care is complicated by many comorbidities and noncompliance. She threatened to leave AMA most days and this morning she left AMA before she could be seen by Dr. Diaz. She reported no pain and denied all symptoms during our encounter this morning before she left AMA. JHONATHAN MCDONNELL Labs and Pending Lab Test: Laboratory Tests 01/24/21 12:10: Potassium Level 5.6H 01/24/21 15:58: Glucometer 109 01/24/21 20:35: Glucometer 166H 01/25/21 05:55: Glucometer 141H 01/25/21 08:29: White Blood Count 5.3, Red Blood Count 3.18L, Hemoglobin 8.8L, Hematocrit 29L, Mean Corpuscular Volume 91, Mean Corpuscular Hemoglobin 28, Mean Corpuscular Hemoglobin Concent 30L, Red Cell Distribution Width 17.8H, Platelet Count 146, Mean Platelet Volume 10.4, Immature Granulocyte % (Auto) 1, Neutrophils (%) (Auto) 78H, Lymphocytes (%) (Auto) 10L, Monocytes (%) (Auto) 8, Eosinophils (%) (Auto) 2, Basophils (%) (Auto) 1, Neutrophils # (Auto) 4.2, Lymphocytes # (Auto) 0.5L, Monocytes # (Auto) 0.4, Eosinophils # (Auto) 0.1, Basophils # (Auto) 0.0, Immature Granulocyte # (Auto) 0.0, Sodium Level 133L, Potassium Level 4.3, Chloride Level 100, Carbon Dioxide Level 19L, Anion Gap 14, Blood Urea Nitrogen 61H, Creatinine 3.22H, Estimat Glomerular Filtration Rate 14, BUN/Creatinine Ratio 19, Glucose Level 204H, Calcium Level 8.0L, Corrected Calcium 9.0, Magnesium Level 1.8, Total Bilirubin 0.5, Aspartate Amino Transf (AST/SGOT) 115H , Alanine Aminotransferase (ALT/SGPT) 90H, Alkaline Phosphatase 97, Total Protein 6.8, Albumin 2.8L Microbiology 01/23/21 MRSA Screen - Final, Complete MRSA not isolated Home Meds Active Reported Zestoretic 20-12.5 mg Tablet (Lisinopril/Hydrochlorothiazide) 1 Each Tablet 1 Each PO DAILY Proair Hfa (Albuterol Sulfate) 1 Puff Puff 2 Puff IH Q4H PRN Furosemide 20 Mg Tablet 20 Mg PO DAILY Hydrocodone-Acetamin 5-325 mg (Hydrocodone/Acetaminophen) 1 Each Tablet 1-2 Tab PO HS PRN Isosorbide Mononitrate ER (Isosorbide Mononitrate) 60 Mg Tab 60 Mg PO DAILY Lantus Solostar (Insulin Glargine,Hum.rec.anlog) 100 Unit/1 Ml Insuln.pen 30 Units SQ BID Novolog Flexpen (Insulin Aspart) 300 Units/3 Ml Solution Units SQ TID Silver Sulfadiazine 50 Gm Cream..g. 1 Applic TOP DAILY FILLED 01-10-2021 #03/22 DAY SUPPLY Xarelto (Rivaroxaban) 20 Mg Tablet 20 Mg PO DAILY Bactrim Ds Tablet (Sulfamethoxazole/Trimethoprim) 1 Each Tablet 1 Each PO BID FILLED 01-10-2021 # DAY SUPPLY & 01-09-2021 #26/12 DAY SUPPLY Gabapentin 600 Mg Tablet 600 Mg PO TID Nitroglycerin 0.4 Mg Tab.subl 0.4 Mg SL UD PRN Atorvastatin Calcium 40 Mg Tablet 40 Mg PO HS Levothyroxine Sodium 88 Mcg Tablet 88 Mcg PO DAILY Assessment/Pt Instructions AMA Discharge Planning: <30 minutes discharge planning Discharge Instructions Discharge Diet: No Restrictions Activity as Tolerated: Yes Discharge Physical Examination Vital Signs Vital Signs Date Time Temp Pulse Resp B/P (MAP) Pulse Ox O2 Delivery O2 Flow Rate FiO2 01/25/21 08:23 36.4 72 18 162/71 93 Room Air 01/24/21 21:00 2.00 01/22/21 22:04 100 General Appearance: No Apparent Distress, WD/WN, Chronically ill Allergies: Uncoded Allergies: Beta bernard (Adverse Reaction, Unknown, 2.4 second pause (07/2018), 05/16/19) Discharge Summary Date of Admission Jan 22, 2021 at 23:00 Date of Discharge Jan 25, 2021 at 09:25 Admission Diagnosis Assessment: Chest pain Acute on chronic kidney disease Hyperkalemia 5.5 Noncompliance Smoker Ischemic cardiomyopathy refuses LifeVest Plan: Conservative management Noncompliance Comfort Measures/ Plan: initiate discussion, clarifying prognosis Time spent on discussion (min): 35 minutes Discharge Diagnosis Transfuse 1 unit Monitor potassium and creatinine [facility] has no beds (1) Chest pain Status: Acute (2) Elevated troponin Status: Acute (3) Insulin dependent diabetes mellitus Status: Chronic (4) Heart failure (5) Type 2 diabetes mellitus with complication Status: Chronic (6) Chronic renal insufficiency Status: Acute (7) Smoker Status: Chronic Clinical Quality Measures AMI/AHF: ASA po Prior to arrival: Yes ORIANA DIAZ DO Jan 25, 2021 11:58
--- NOTE | 2021-01-25 13:40 | Progress Note ---
JHONATHAN MCDONNELL 01/25/21 1340: Progress Note Ms. Collins is a 65 y/o woman with a PMHx of COVID, CKD, CAD, and ischemic cardiomyopathy who presented to the ED on 22 January for sharp chest pain that radiated down her arm with associated SOB and nausea. She reported taking nitro to no avail. She has a long history of CAD with stenting and cardiomyopathy with a Life Vest. Patient does not wear Life Vest. She was seen by Dr. Buenrostro throughout her stay in the hospital. Her son recently from COVID in November causing her to "not care about anything after that." She wears oxygen at home. Patient is noncompliant and receives most of her care in [place]. She does not f/u with many outpatient appointments. Her care is complicated by many comorbidities and noncompliance. She threatened to leave AMA most days and this morning she left AMA before she could be seen by Dr. Diaz. She reported no pain and denied all symptoms during our encounter this morning before she left AMA. BRENDA DIAZ DO 01/26/21 0621: Supervisory-Addendum Brief Verification & Attestation Participated in pt care: history, MDM, physical Personally performed: exam, history, MDM, supervision of care Care discussed with: Medical Student Procedures: n/a Results interpretation: Verified all documentation Verification and Attestation of Medical Student E/M Service A medical student performed and documented this service in my presence. I reviewed and verified all information documented by the medical student and made modifications to such information, when appropriate. I personally performed the physical exam and medical decision making. Brenda Diaz Jan 26, 2021,06:21 JHONATHAN MCDONNELL Jan 25, 2021 13:40 BRENDA DIAZ DO Jan 26, 2021 06:21
== END 2021-01-25 09:25 | disposition left against medical advice (07) | DRG 280 ==
LOC: EDUNIT# 22:00 → ER 22:01 → ICU 23:00 → 4TH 01-23 16:50
PROVIDERS: ADMIT Internal Medicine; ATTEND Internal Medicine
DX: I13.0 Hypertensive heart and chronic kidney disease with heart failure and stage 1 through stage 4 chronic kidney disease, or unspecified chronic kidney disease (principal); I50.23 Acute on chronic systolic (congestive) heart failure; I21.A1 Myocardial infarction type 2; N18.4 Chronic kidney disease, stage 4 (severe); N17.9 Acute kidney failure, unspecified; K92.2 Gastrointestinal hemorrhage, unspecified; D62 Acute posthemorrhagic anemia; L97.219 Non-pressure chronic ulcer of right calf with unspecified severity; L97.229 Non-pressure chronic ulcer of left calf with unspecified severity; E11.22 Type 2 diabetes mellitus with diabetic chronic kidney disease; R77.8 Other specified abnormalities of plasma proteins; I25.5 Ischemic cardiomyopathy; I48.0 Paroxysmal atrial fibrillation; I25.10 Atherosclerotic heart disease of native coronary artery without angina pectoris; I25.82 Chronic total occlusion of coronary artery; F17.210 Nicotine dependence, cigarettes, uncomplicated; J44.9 Chronic obstructive pulmonary disease, unspecified; E78.00 Pure hypercholesterolemia, unspecified; E11.40 Type 2 diabetes mellitus with diabetic neuropathy, unspecified; K21.9 Gastro-esophageal reflux disease without esophagitis; E03.9 Hypothyroidism, unspecified; E87.5 Hyperkalemia; I25.2 Old myocardial infarction; Z91.19 Patient's noncompliance with other medical treatment and regimen; Z95.5 Presence of coronary angioplasty implant and graft; Z20.822 Contact with and (suspected) exposure to COVID-19; Z86.16 Personal history of COVID-19; Z83.3 Family history of diabetes mellitus
CPT/HCPCS: 36415; 70450; 71045; 80048; 80053; 80061; 82150; 82274; 82550; 82553; 82947; 83690; 83735; 83874; 83880; 84100; 84132; 84134; 84484; 85025; 85027; 85610; 85730; 86850; 86900; 86901; 86920; 87081; 87636; 93005; 93041; 96374

== ENCOUNTER 2021-03-10 13:14 | Inpatient (IN) | payer SELFPAY ==
[~2021-03-10] VITALS: Ht 157 cm; Wt 88.0 kg
[2021-03-10] VITALS (7 sets, daily range): BP systolic 123–169; BP diastolic 50–107
[~2021-03-10 13:14] MED LIST changes: +FURO20TA4 PO; +INSU100I14 SQ; +LISI-592 PO; +SILV50CR28 TOP; +SULF1TAB38 PO
[2021-03-10] MEDS ORDERED: FUROSEMIDE 40 MG/4 ML INJ (LASIX) IVP ONE (13:30)
--- NOTE | 2021-03-10 13:32 | ED General ---
General Stated Complaint: STOMACH ISSUES; COVID+ Source of Information: Patient, EMS Exam Limitations: No Limitations History of Present Illness Date Seen by Provider: Mar 10, 2021 Time Seen by Provider: 13:20 Initial Comments 65-year-old female with past medical history of HFrEF (LVEF ~35%), COPD on O2 at night, CAD with stenting and chronic occlusion, diabetes, CKD coming in via EMS from home due to numerous issues. Most notably, she says she has abdominal swelling and pain. She says she has gained a lot of water weight despite taking Lasix 40 mg twice a day. She is also within the past 4 days had nonbloody nonbilious vomiting and nonbloody diarrhea. Noted that she had COVID in November. Denies any new chest pain, focal weakness, numbness, headache. On review of systems she was positive for numerous falls as recent as yesterday with a laceration to her knee. She says most recent fall she did hit her head as well. Tetanus last up-to-date over 10 years ago she says. Has been taking all of her meds as prescribed including her Xarelto. Allergies and Home Medications Allergies Uncoded Allergies: Beta bernard (Adverse Reaction, Unknown, 2.4 second pause (07/2018), 05/16/19) Patient Home Medication List Home Medication List Reviewed: Yes Albuterol Sulfate (Proair Hfa) 1 Puff Puff, 2 PUFF IH Q4H PRN for SHORTNESS OF BREATH, (Reported) Entered as Reported by: COLBY SCOTT on 01/23/21 1409 Atorvastatin Calcium (Atorvastatin Calcium) 40 Mg Tablet, 40 MG PO HS, (Re ported) Entered as Reported by: SIXTO CARVALHO on 07/28/18 1105 Furosemide (Furosemide) 20 Mg Tablet, 20 MG PO DAILY, (Reported) Entered as Reported by: COLBY SCOTT on 01/23/21 1409 Gabapentin (Gabapentin) 600 Mg Tablet, 600 MG PO TID, (Reported) Entered as Reported by: SEVERO TESFAYE on 09/04/20 1326 Hydrocodone/Acetaminophen (Hydrocodone-Acetamin 5-325 mg) 1 Each Tablet, 1-2 TAB PO HS PRN for PAIN-MODERATE (5-7), (Reported) Entered as Reported by: COLBY SCOTT on 01/23/21 1409 Insulin Aspart (Novolog Flexpen) 300 Units/3 Ml Solution, UNITS SQ TID, (Reported) Entered as Reported by: COLBY SCOTT on 01/23/21 140 Insulin Glargine,Hum.rec.anlog (Lantus Solostar) 100 Unit/1 Ml Insuln.pen, 30 UNITS SQ BID, (Reported) Entered as Reported by: COLBY SCOTT on 01/23/21 140 Isosorbide Mononitrate (Isosorbide Mononitrate ER) 60 Mg Tab, 60 MG PO DAILY, (Reported) Entered as Reported by: COLBY SCOTT on 01/23/21 140 Levothyroxine Sodium (Levothyroxine Sodium) 88 Mcg Tablet, 88 MCG PO DAILY, (Reported) Entered as Reported by: MARY SAEED on 02/01/18 0923 Lisinopril/Hydrochlorothiazide (Zestoretic 20-12.5 mg Tablet) 1 Each Tablet, 1 EACH PO DAILY, (Reported) Entered as Reported by: COLBY SOCTT on 01/23/21 141 Nitroglycerin (Nitroglycerin) 0.4 Mg Tab.subl, 0.4 MG SL UD PRN for CHEST PAIN, (Reported) Entered as Reported by: SIXTO CARVALHO on 07/28/18 1105 Rivaroxaban (Xarelto) 20 Mg Tablet, 20 MG PO DAILY, (Reported) Entered as Reported by: COLBY SCOTT on 01/23/21 140 Silver Sulfadiazine (Silver Sulfadiazine) 50 Gm Cream..g., 1 APPLIC TOP DAILY, (Reported) Entered as Reported by: COLBY SCOTT on 01/23/21 140 Sulfamethoxazole/Trimethoprim (Bactrim Ds Tablet) 1 Each Tablet, 1 EACH PO BID, (Reported) Entered as Reported by: COLBY SCOTT on 01/23/21 140 Review of Systems Review of Systems Constitutional: chills; No fever EENTM: No blurred vision Respiratory: cough, short of breath Cardiovascular: No chest pain Gastrointestinal: abdominal pain, diarrhea, nausea, vomiting Genitourinary: No dysuria Musculoskeletal: other (body aches generally) Skin: no symptoms reported Psychiatric/Neurological: No Symptoms Reported Hematologic/Lymphatic: No Symptoms Reported Immunological/Allergic: no symptoms reported All Other Systems Reviewed Negative Unless Noted: Yes Past Tvgocit-Rfpfia-Gghnxm Hx Patient Social History Substance use?: No Immunizations Up To Date Tetanus Booster (TDap): Unknown Seasonal Allergies Seasonal Allergies: No Past Medical History Surgery/Hospitalization HX: COPD, Insulin dependent DM Surgeries: Yes Cardiac, Coronary Stent, Hysterectomy Respiratory: Yes (WEARS OXYGEN AT NIGHT) COPD Cardiac: Yes (NSTEMI, heart failure with EF 30 to 35% in July 2020) Cardiomyopathy, Chronic Edema/Swelling, Coronary Artery Disease, Heart Attack, High Cholesterol, Hypertension, Peripheral Vascular Neurological: Yes Neuropathy [employer] History: Hysterectomy, Menopausal Sexually Transmitted Disease: No HIV/AIDS: No Genitourinary: Yes (NO DIALYSIS) Renal Failure Gastrointestinal: Yes Gastroesophageal Reflux Musculoskeletal: Yes (FREQUENT FALLS) Endocrine: Yes Hypothyroidsim, Diabetes, Non-Insulin dep HEENT: No Cancer: No Psychosocial: No Integumentary: Yes (CHRONIC LOWER LEG AND FOOT ULCERS/WOUNDS) Blood Disorders: No Adverse Reaction/Blood Tranf: No Family Medical History Completed stroke 19 FATHER Diabetes mellitus 19 FATHER G8 BROTHER G8 SISTER No Pertinent Family Hx PAST SURGICAL HISTORY: -CARDIAC CATH 09/04/[address] ALCALA: CONCLUSIONS: 1. Diffuse knij-kn-chhvpjdm disease of the left coronary system without significant focal stenoses. There is a patent stent in the proximal left anterior descending that is known to be a drug-eluting stent measuring 3.0 x 24 mm and that was placed in 01/2018 in [place], [place]. The right coronary artery is chronically occluded at its ostium and is collateralized from the left coronary system. 2. Elevated left ventricular end-diastolic pressure of approximately 27 mmHg. DISCUSSION AND RECOMMENDATIONS: The cardiac catheterization findings are not significantly changed compared to the findings of 05/2019. Based on the study, it appears appropriate to continue a conservative approach. Her most recent ejection fraction on echocardiography of 07/11/[address] Willoughby was 30 to 35%. We are optimizing medical regimen and have advised close clinical followup. She has a LifeVest in place. We recommend repeat echocardiography in 10/2020 to see if ejection fraction is improved. Physical Exam Vital Signs Vital Signs - First Documented 03/10/21 13:15 Temp 36.2 Pulse 88 Resp 23 B/P (MAP) 169/107 (127) Pulse Ox 98 O2 Delivery Nasal Cannula O2 Flow Rate 2.00 Capillary Refill : Height, Weight, BMI Height: 5'2.00" Weight: 179lbs. 5.0oz. 81.456113od; 40.51 BMI Method:Stated General Appearance: No Apparent Distress, WD/WN Eyes: Bilateral Eye Normal Inspection HEENT: PERRL/EOMI, Normal ENT Inspection, Pharynx Normal Neck: Full Range of Motion, Normal Inspection, Non Tender, Supple Respiratory: Chest Non Tender, No Accessory Muscle Use, No Respiratory Distress, Crackles Cardiovascular: Regular Rate, Rhythm, Normal Peripheral Pulses, Other (lower extremity edema) Gastrointestinal: Normal Bowel Sounds, Soft, Other (edema up to abdomen) Back: Normal Inspection, No CVA Tenderness, No Vertebral Tenderness Extremity: Normal Capillary Refill, Normal Range of Motion, Non Tender, No Calf Tenderness, Pedal Edema, Other (chronic venous stasis changes, 2cm laceration to the right knee that is hemostatic) Neurologic/Psychiatric: Alert, Oriented x3, No Motor/Sensory Deficits, Normal Mood/Affect Skin: Normal Color, Warm/Dry Lymphatic: No Adenopathy Procedures/Interventions Date of ETT Placement: Feb 01, 2018 Time of ETT Placement: 1613 Wound Location: Lower Extremities (right knee) Wound Length (cm): 2 Wound's Depth, Shape: superficial Wound Explored: clean Irrigated w/ Saline (ccs): 250 Other Closure Supply: Steri Strip 1/2", Mastisol Progress closed with 2 steri strips and mastisol Progress/Results/Core Measures Suspected Sepsis SIRS Temperature: Pulse: Respiratory Rate: Laboratory Tests 03/10/21 13:20: White Blood Count 10.7 Blood Pressure / Mean: Laboratory Tests 03/10/21 13:20: Creatinine 1.64H, INR Comment 1.3, Platelet Count 167, Total Bilirubin 0.7 Results/Orders Lab Results Laboratory Tests Test 03/10/21 13:20 Range/Units White Blood Count 10.7 4.3-11.0 10^3/uL Red Blood Count 3.53 L 3.80-5.11 10^6/uL Hemoglobin 9.4 L 11.5-16.0 g/dL Hematocrit 32 L 35-52 % Mean Corpuscular Volume 90 80-99 fL Mean Corpuscular Hemoglobin 27 25-34 pg Mean Corpuscular Hemoglobin Concent 30 L 32-36 g/dL Red Cell Distribution Width 16.8 H 10.0-14.5 % Platelet Count 167 130-400 10^3/uL Mean Platelet Volume 11.3 9.0-12.2 fL Immature Granulocyte % (Auto) 1 % Neutrophils (%) (Auto) 88 H 42-75 % Lymphocytes (%) (Auto) 5 L 12-44 % Monocytes (%) (Auto) 6 0-12 % Eosinophils (%) (Auto) 0 0-10 % Basophils (%) (Auto) 0 0-10 % Neutrophils # (Auto) 9.4 H 1.8-7.8 X 10^3 Lymphocytes # (Auto) 0.5 L 1.0-4.0 X 10^3 Monocytes # (Auto) 0.6 0.0-1.0 X 10^3 Eosinophils # (Auto) 0.0 0.0-0.3 10^3/uL Basophils # (Auto) 0.0 0.0-0.1 10^3/uL Immature Granulocyte # (Auto) 0.1 0.0-0.1 10^3/uL Prothrombin Time 16.7 H 12.2-14.7 SEC INR Comment 1.3 0.8-1.4 Activated Partial Thromboplast Time 36 H 24-35 SEC Sodium Level 134 L 135-145 MMOL/L Potassium Level 4.2 3.6-5.0 MMOL/L Chloride Level 97 L 98-107 MMOL/L Carbon Dioxide Level 26 21-32 MMOL/L Anion Gap 11 5-14 MMOL/L Blood Urea Nitrogen 33 H 7-18 MG/DL Creatinine 1.64 H 0.60-1.30 MG/DL Estimat Glomerular Filtration Rate 32 BUN/Creatinine Ratio 20 Glucose Level 230 H 70-105 MG/DL Calcium Level 8.2 L 8.5-10.1 MG/DL Corrected Calcium 9.0 8.5-10.1 MG/DL Total Bilirubin 0.7 0.1-1.0 MG/DL Aspartate Amino Transf (AST/SGOT) 21 5-34 U/L Alanine Aminotransferase (ALT/SGPT) 14 0-55 U/L Alkaline Phosphatase 104 40-136 U/L Troponin I < 0.30 <0.30 NG/ML Pro-B-Type Natriuretic Peptide 55584.0 H <75.0 PG/ML Total Protein 7.0 6.4-8.2 GM/DL Albumin 3.0 L 3.2-4.5 GM/DL Lipase 11 8-78 U/L Influenza Type A Antigen POSITIVE H NEGATIVE Influenza Type B Antigen NEGATIVE NEGATIVE My Orders Orders - RAFAL CONTI MD Ed Iv/Invasive Line Start (03/10/21 13:28) Ekg Tracing (03/10/21 13:28) O2 (03/10/21 13:28) Monitor-Rhythm Ecg Trace Only (03/10/21 13:28) Cbc With Automated Diff (03/10/21 13:28) Comprehensive Metabolic Panel (03/10/21 13:28) Lipase (03/10/21 13:28) Protime With Inr (03/10/21 13:28) Partial Thromboplastin Time (03/10/21 13:28) Probnp Fs (03/10/21 13:28) Troponin I Fs (03/10/21 13:28) Influenza A & B Antigens (03/10/21 13:28) Covid 19 Inhouse Test (03/10/21 13:28) Furosemide Injection (Lasix Injection) (03/10/21 13:30) Dipht,Pertuss(Acell),Tet Adult (Boostrix (03/10/21 13:45) Ct Head/Cervical Spine Wo (03/10/21 ) Ct Chest/Abdomen/Pelvis Wo (03/10/21 13:28) Oseltamivir 30 Mg Capsule (Tamiflu 30 Mg (03/10/21 14:30) Medications Given in ED Current Medications Medications Dose Ordered Sig/[place] Route Start Time Stop Time Status Last Admin Dose Admin Diphtheria/ Tetanus/Acell Pertussis 0.5 ml ONCE ONCE IM 03/10/21 13:45 03/10/21 13:46 DC 03/10/21 13:54 0.5 ML Furosemide 80 mg ONCE ONCE IVP 03/10/21 13:30 03/10/21 13:31 DC 03/10/21 13:53 80 MG Vital Signs/I&O 03/10/21 03/10/21 13:15 13:15 Temp 36.2 Pulse 88 Resp 23 B/P (MAP) 169/107 (127) Pulse Ox 98 98 O2 Delivery Nasal Cannula Nasal Cannula O2 Flow Rate 2.00 2.00 Capillary Refill : Progress Note : Progress Note 65-year-old female with above history coming in due to abdominal pain, body aches, recent several falls. ABCs were intact and vitals were stable on presentation although her oxygen was slightly low, but consistent with her history of COPD. Physical exam most notable for crackles, edema, she does have a laceration to her right knee. Unfortunately, the laceration is more than 24 hours old. It is hemostatic however. We cleaned it and loosely approximated it with Steri-Strips. We updated her tetanus today. An IV was placed and basic labs including cardiac biomarkers obtained. Flu a test is positive, so she was given 30 mg of Tamiflu given her GFR is 32. Covid test is pending. CT head, neck, chest, abdomen, pelvis ordered given the numerous falls on [place] and her "hurting everywhere". Her creatinine is around 1.6 which is the lowest has been essentially in our hospital system. Troponin is undetectable. BNP is greater than 30,000. I discussed the case with Dr. Elliott the chain pegger who recommended to continue the IV Lasix but otherwise no other recommendations at this time. I discussed the case with Dr. Bueno who admit the patient to the cardiac stepdown for further evaluation and management. Departure Impression Primary Impression: Influenza A Additional Impression: CHF exacerbation Qualified Codes: I50.23 - Acute on chronic systolic (congestive) heart failure Disposition: 30 STILL A PATIENT Condition: Stable Admissions Decision to Admit Reason: Admit from ER (General) Decision to Admit/Date: Mar 10, 2021 Time/Decision to Admit Time: 15:00 Transfer Method of Transfer: EMS Departure-Patient Inst. Referrals: FORTINO LÓPEZ MD (PCP/Family) Primary Care Physician RAFAL CONTI MD Mar 10, 2021 13:32
[2021-03-10 13:40] LABS: BASOPHILS % (AUTO) 0 % (0-10); EOSINOPHILS % (AUTO) 0 % (0-10); HEMATOCRIT 32 % (35-52); HEMOGLOBIN 9.4 g/dL (11.5-16.0); LYMPHOCYTES # (AUTO) 0.5 X 10^3 (1.0-4.0); LYMPHOCYTES % (AUTO) 5 % (12-44); MEAN CORPUSCULAR HEMOGLOBIN 27 pg (25-34); MEAN CORPUSCULAR HGB CONC 30 g/dL (32-36); MEAN CORPUSCULAR VOLUME 90 fL (80-99); MEAN PLATELET VOLUME 11.3 fL (9.0-12.2); MONOCYTES # (AUTO) 0.6 X 10^3 (0.0-1.0); MONOCYTES % (AUTO) 6 % (0-12); NEUTROPHILS # (AUTO) 9.4 X 10^3 (1.8-7.8); NEUTROPHILS % (AUTO) 88 % (42-75); PLATELET COUNT 167 10^3/uL (130-400); WHITE BLOOD COUNT 10.7 10^3/uL (4.3-11.0)
[2021-03-10 13:41] LABS: INR 1.3 (0.8-1.4); PROTHROMBIN TIME PATIENT 16.7 SEC (12.2-14.7)
[2021-03-10] MEDS ORDERED: TETANUS,DIPTH,PERTUSS P/F (BOOSTRIX) 0.5 ML VIAL IM ONE (13:45)
[2021-03-10 13:58] LABS: ALANINE AMINOTRANSFERASE 14 U/L (0-55); ALKALINE PHOSPHATASE 104 U/L (40-136); BILIRUBIN,TOTAL 0.7 MG/DL (0.1-1.0); BUN/CREATININE RATIO 20; CALCIUM 8.2 MG/DL (8.5-10.1); CARBON DIOXIDE 26 MMOL/L (21-32); CHLORIDE 97 MMOL/L (98-107); CREATININE SERUM 1.64 MG/DL (0.60-1.30); GFR ESTIMATED 32; GLUCOSE 230 MG/DL (70-105); LIPASE 11 U/L (8-78); POTASSIUM 4.2 MMOL/L (3.6-5.0); SODIUM 134 MMOL/L (135-145)
--- NOTE | 2021-03-10 14:27 | Diagnostic Imaging Report ---
PROCEDURE: CT head and CT cervical spine without contrast. TECHNIQUE: Multiple contiguous axial images were obtained through the brain and cervical spine without the use of intravenous contrast. Sagittal and coronal reformations through the cervical spine were then performed. Auto Exposure Controls were utilized during the CT exam to meet ALARA standards for radiation dose reduction. INDICATION: Fall. Head and neck pain. COMPARISON: 01/22/2021. FINDINGS: CT head: No large acute territorial ischemia, mass, or hemorrhage. No midline shift or mass effect. The ventricles, cortical sulci, and basilar cisterns are patent and unremarkable. The calvarium is intact. The visualized paranasal sinuses are clear. CT cervical spine: No acute fracture or dislocation is seen in the cervical spine. No focal osseous lesions. Vertebral body heights are well-maintained. The craniocervical junction is well-maintained. Mild degenerative changes are seen in the cervical spine with disc osteophyte complexes and uncovertebral arthropathy. Soft tissues of the neck are unremarkable. The included lung apices are clear. IMPRESSION: 1. No hemorrhage or focal intra-axial mass. No CT evidence of large acute territorial ischemia. 2. No acute fracture or dislocation in the cervical spine. Dictated by: Dictated on workstation # [id number]
[2021-03-10] MEDS ORDERED: OSELTAMIVIR 30 MG (TAMIFLU) CAPSULE PO ONE (14:30)
--- NOTE | 2021-03-10 14:55 | Diagnostic Imaging Report ---
PROCEDURE: CT chest, abdomen and pelvis without contrast. TECHNIQUE: Multiple contiguous axial images were obtained through the chest, abdomen, and pelvis without the use of intravenous contrast. Auto Exposure Controls were utilized during the CT exam to meet ALARA standards for radiation dose reduction. INDICATION: Numerous falls. Chest, abdomen and pelvis pain. FINDINGS: The previous CT chest exam performed on 02/01/2018 raised the question of possible pulmonary edema. There is also an 8 mm groundglass micronodule in the right upper lobe. Cardiomegaly and bibasilar pneumonia/atelectasis and bilateral pleural effusions are also evident. On this study both lungs do appear much better aerated. There are small patchy areas of increased density in each lower lobe and in each upper lobe, particularly in the left upper lung. These findings may represent recurrent pneumonia/atelectasis. There is no significant pleural effusion identified. The heart is enlarged but stable. There are extensive coronary artery calcifications. The aorta is abnormally dilated. There are a few prominent mediastinal and aorticopulmonary window nodes. These are perhaps somewhat greater than noted on the prior exam. These nodes may be reactive nodes as opposed nodes involved by neoplasm. The thyroid gland is not well-visualized. No obvious breast mass. There are no prior CT abdomen/pelvis examinations available for comparison. However, as noted on the previous CT chest exam from 02/01/2018, there is cholelithiasis. There is no evidence for acute cholecystitis however. The liver, spleen, pancreas, adrenals, aorta and inferior vena cava show no sign of an acute myocardial infarction. The stomach is partially filled with fluid and difficult to assess. There are vascular calcifications associated with both kidneys but there is no sign of nephrolithiasis and the kidneys do not appear to be obstructed. There is diverticulosis of the sigmoid colon without evidence for acute diverticulitis. There is a small amount of nonspecific free fluid in the pelvis. The uterus is surgically absent. There is a Cade catheter within the bladder. The appendix is not well-visualized but there are no indirect signs of acute appendicitis. The bone windows show no evidence for a fracture or for a destructive lesion. There is diffusely increased density throughout the subcutaneous fat. This appearance does raise the question of anasarca. IMPRESSION: 1. There is recurrent bilateral pneumonia/atelectasis. However, the degree of involvement of both lungs by pneumonia/atelectasis is not nearly as severe as on the prior exam. There is no pleural effusion identified either. There is no acute abnormality of the abdomen or pelvis noted otherwise. 2. There is cholelithiasis without evidence for acute cholecystitis. If further study is desired, ultrasound would be recommended. 3. There is a small amount of nonspecific free fluid low in the pelvis. 4. There is no acute bony abnormality identified. 5. Increased density in the subcutaneous fat does suggest anasarca. Dictated by: Dictated on workstation # [id number]
[2021-03-10] MEDS ORDERED: HYDROcodone/APAP 5 MG/325 MG (LORTAB) TAB PO PRN (16:45)
[2021-03-10] MEDS ORDERED: polyethylene glycoL POWDER 17 GM (MIRALAX) PACK PO PRN (16:45)
[2021-03-10] MEDS ORDERED: ONDANSETRON 4 MG/2 ML (SDV) Z0FRAN IV PRN (16:45)
[2021-03-10] MEDS ORDERED: NALOXONE 0.4 MG/ML 1 ML (NARCAN) VIAL IV PRN (16:45)
[2021-03-10] MEDS ORDERED: ACETAMINOPHEN 325 MG TABLET PO PRN (16:45)
[2021-03-10] MEDS ORDERED: ONDANSETRON 4 MG (ZOFRAN) ORAL DISSOLVE TAB PO PRN (16:45)
[2021-03-10] MEDS ORDERED: MELATONIN 3 MG TABLET PO PRN (16:45)
[2021-03-10] MEDS ORDERED: BISACODYL 10 MG SUPP (DULCOLAX) PR PRN (16:45)
[2021-03-10] MEDS ORDERED: ANTACID SUSP 30 ML UDC (MYLANTA) PO PRN (16:45)
[2021-03-10] MEDS ORDERED: diphenhydrAMINE 25 MG TAB (BENADRYL) PO PRN (16:45)
[2021-03-10] MEDS ORDERED: diphenhydrAMINE 50 MG/ML INJ (BENADRYL) IVP PRN (16:45)
[2021-03-10] MEDS ORDERED: DOCUSATE SODIUM 100 MG (COLACE) CAP PO PRN (16:45)
[2021-03-10] MEDS ORDERED: morphine INJ 4 MG/ML 1 ML (VIAL/SYRINGE) IV PRN (16:45)
[2021-03-10] MEDS ORDERED: RIVAROXABAN 20 MG TABLET (XARELTO) PO SCH (17:00)
[2021-03-10] MEDS: FUROSEMIDE 40 MG/4 ML INJ (LASIX) IVP SCH (18:39)
[2021-03-10] MEDS: RIVAROXABAN 15 MG TABLET (XARELTO) PO SCH (18:39)
[2021-03-10] MEDS: RT-ALBUTEROL HFA 8.5 GM INHALER IH SCH ×2 (19:00→23:17)
[2021-03-10] MEDS ORDERED: RT-ALBUTEROL HFA 8.5 GM INHALER IH PRN (20:00)
[2021-03-10] MEDS: DOCUSATE SODIUM 100 MG (COLACE) CAP PO SCH (20:34)
[2021-03-10] MEDS: inSUlin ASPART (NovoLOG) 1 UNIT/0.01 ML (CHARGE PER UNIT) SC SCH (20:34)
[2021-03-10] MEDS: OSELTAMIVIR 30 MG (TAMIFLU) CAPSULE PO SCH (20:34)
[2021-03-10] MEDS ORDERED: OSELTAMIVIR 75 MG (TAMIFLU) CAPSULE PO SCH (21:00)
[2021-03-11] VITALS: BP 151/67
[2021-03-11] MEDS: RT-ALBUTEROL HFA 8.5 GM INHALER IH SCH ×6 (02:35→22:33)
[2021-03-11 04:00] VITALS: BP 144/97
[2021-03-11 05:24] LABS: BASOPHILS % (AUTO) 1 % (0-10); EOSINOPHILS # (AUTO) 0.1 10^3/uL (0.0-0.3); EOSINOPHILS % (AUTO) 1 % (0-10); HEMATOCRIT 30 % (35-52); HEMOGLOBIN 8.7 g/dL (11.5-16.0); LYMPHOCYTES # (AUTO) 0.5 10^3/uL (1.0-4.0); LYMPHOCYTES % (AUTO) 6 % (12-44); MEAN CORPUSCULAR HEMOGLOBIN 26 pg (25-34); MEAN CORPUSCULAR HGB CONC 29 g/dL (32-36); MEAN CORPUSCULAR VOLUME 90 fL (80-99); MEAN PLATELET VOLUME 10.7 fL (9.0-12.2); MONOCYTES # (AUTO) 0.6 10^3/uL (0.0-1.0); MONOCYTES % (AUTO) 7 % (0-12); NEUTROPHILS # (AUTO) 7.3 10^3/uL (1.8-7.8); NEUTROPHILS % (AUTO) 84 % (42-75); PLATELET COUNT 151 10^3/uL (130-400); WHITE BLOOD COUNT 8.7 10^3/uL (4.3-11.0)
[2021-03-11 05:32] LABS: ALBUMIN 2.7 GM/DL (3.2-4.5); POTASSIUM 3.5 MMOL/L (3.6-5.0)
[2021-03-11 05:34] LABS: TOTAL PROTEIN 6.8 GM/DL (6.4-8.2)
[2021-03-11 05:36] LABS: BILIRUBIN,TOTAL 0.6 MG/DL (0.1-1.0)
[2021-03-11 05:38] LABS: CREATININE SERUM 1.79 MG/DL (0.60-1.30)
[2021-03-11] MEDS: inSUlin ASPART (NovoLOG) 1 UNIT/0.01 ML (CHARGE PER UNIT) SC SCH ×4 (06:40→20:50)
[2021-03-11 06:43] LABS: ANISOCYTOSIS SLIGHT; ATYPICAL LYMPHOCYTES 1 %; LYMPHOCYTES % (MANUAL) 7 %; MONOCYTES % (MANUAL) 7 %; NEUTROPHILS % (MANUAL) 85 %
[2021-03-11 07:55] VITALS: BP 140/51
[2021-03-11] MEDS: FUROSEMIDE 40 MG/4 ML INJ (LASIX) IVP SCH ×2 (08:01→16:51)
[2021-03-11] MEDS: DOCUSATE SODIUM 100 MG (COLACE) CAP PO SCH ×2 (08:02→20:50)
[2021-03-11] MEDS: OSELTAMIVIR 30 MG (TAMIFLU) CAPSULE PO SCH ×2 (08:02→20:50)
--- NOTE | 2021-03-11 11:19 | Consultation-Cardiology ---
HPI-Cardiology Cardiology Consultation: Date of Consultation 03/11/2021 Date of Admission Attending Physician Kelly Leonardo MD Admitting Physician Bear Menon MD Consulting Physician SVITLANA PRAJAPATI JR, MD HPI: Time Seen by a Provider: 11:18 Chief Complaint: Reason for consultation: Heart failure. I had the pleasure of reviewing the records and current clinical status of Radha who is admitted to the cardiac stepdown unit at [facility] in [place], [place]. I did not see the patient due to her PUI for Covid status. Apparently, she presented to the hospital due to increasing dyspnea. She was felt to be in congestive heart failure and she was admitted for intravenous diuresis. I was consulted for the same. I had the pleasure of seeing Radha on the cardiac stepdown unit at [facility] this morning. She has an extensive past cardiac history including coronary artery disease with previous coronary stents, cardiomyopathy with chronic systolic heart failure, paroxysmal atrial fibrillation, essential hypertension, hyperlipidemia, type 2 diabetes mellitus with complications, cigarette smoking, stage III chronic kidney disease, and obesity among several other less clinically significant issues. She normally follows with one of my partners. I did not obtain any additional history due to the patient's PUI for Covid status. Certain portions of this document may have been dictated utilizing voice recognition technology. Inherent to this technology, typographical and grammatical errors may exist. As much as I am diligent to identify and correct these mistakes, some errors may remain in the document. Review of Systems-Cardiology Review of Systems Other comments Not obtained due to PUI for Covid All Other Systems Reviewed Negative Unless Noted: Yes SSN-Dnxmpm-Fwgvbr Hx Patient Social History Smoking Status: Current Everyday Smoker 2nd Hand Smoke Exposure: No Have you traveled recently?: No Alcohol Use?: No Pt feels they are or have been: No Tobacco type used: Cigarettes Immunizations Up To Date Tetanus Booster (TDap): Unknown Date of Pneumonia Vaccine: Mar 09, 2016 Date of Influenza Vaccine: Nov 18, 2019 Past Medical History PMH As described under Assessment. Family Medical History Family Medical History: She reports her father and sister both had CAD with [place] between ages 40-60. Family History: Completed stroke 19 FATHER Diabetes mellitus 19 FATHER G8 BROTHER G8 SISTER Allergies and Home Medications Allergies Uncoded Allergies: Beta bernard (Adverse Reaction, Unknown, 2.4 second pause (07/2018), 05/16/19) Patient Home Medication List Home Medication List Reviewed: Yes Albuterol Sulfate (Proair Hfa) 1 Puff Puff, 2 PUFF IH Q4H PRN for SHORTNESS OF BREATH, (Reported) Entered as Reported by: COLBY SCOTT on 01/23/211408 Last Action: Last Taken Edited Atorvastatin Calcium (Atorvastatin Calcium) 40 Mg Tablet, 40 MG PO HS, (Reported) Entered as Reported by: SIXTO CARVALHO on 07/28/18 1105 Last Action: Last Taken Edited Furosemide (Furosemide) 20 Mg Tablet, 20 MG PO DAILY, (Reported) Entered as Reported by: COLBY SCOTT on 01/23/211408 Last Action: Last Taken Edited Gabapentin (Gabapentin) 600 Mg Tablet, 600 MG PO TID, (Reported) Entered as Reported by: SEVERO TESFAYE on 09/04/20 1326 Last Action: Last Taken Edited Hydrocodone/Acetaminophen (Hydrocodone-Acetamin 5-325 mg) 1 Each Tablet, 1-2 TAB PO HS PRN for PAIN-MODERATE (5-7), (Reported) Entered as Reported by: COLBY SCOTT on 01/23/211408 Last Action: Last Taken Edited Insulin Aspart (Novolog Flexpen) 300 Units/3 Ml Solution, UNITS SQ TID, (Reported) Entered as Reported by: COLBY SCOTT on 01/23/211408 Last Action: Last Taken Edited Insulin Glargine,Hum.rec.anlog (Lantus Solostar) 100 Unit/1 Ml Insuln.pen, 30 UNITS SQ BID, (Reported) Entered as Reported by: COLBY SCOTT on 01/23/211408 Last Action: Last Taken Edited Isosorbide Mononitrate (Isosorbide Mononitrate ER) 60 Mg Tab, 60 MG PO DAILY, (Reported) Entered as Reported by: COLBY SCOTT on 01/23/211408 Last Action: Last Taken Edited Levothyroxine Sodium (Levothyroxine Sodium) 88 Mcg Tablet, 88 MCG PO DAILY, (Reported) Entered as Reported by: MARY SAEED on 02/01/18 0996 Last Action: Last Taken Edited Lisinopril/Hydrochlorothiazide (Zestoretic 20-12.5 mg Tablet) 1 Each Tablet, 1 EACH PO DAILY, (Reported) Entered as Reported by: COLBY SCOTT on 01/23/21 1412 Last Action: Last Taken Edited Nitroglycerin (Nitroglycerin) 0.4 Mg Tab.subl, 0.4 MG SL UD PRN for CHEST PAIN, (Reported) Entered as Reported by: SIXTO CARVALHO on 07/28/18 1105 Last Action: Last Taken Edited Rivaroxaban (Xarelto) 20 Mg Tablet, 20 MG PO DAILY, (Reported) Entered as Reported by: COLBY SCOTT on 01/23/21 140 Last Action: Last Taken Edited Sertraline HCl (Sertraline HCl) 50 Mg Tablet, 50 MG PO DAILY, (Reported) Entered as Reported by: COLBY SCOTT on 03/11/21 1229 Last Action: Reviewed Discontinued Medications Silver Sulfadiazine (Silver Sulfadiazine) 50 Gm Cream..g., 1 APPLIC TOP DAILY, (Reported) Discontinued Reason: Duplicate Order Entered as Reported by: COLBY SCOTT on 01/23/211408 Last Action: Discontinued Sulfamethoxazole/Trimethoprim (Bactrim Ds Tablet) 1 Each Tablet, 1 EACH PO BID, (Reported) Discontinued Reason: Duplicate Order Entered as Reported by: COLBY SCOTT on 01/23/211408 Last Action: Discontinued Exam Vital Signs Vital Signs Date Time Temp Pulse Resp B/P (MAP) Pulse Ox O2 Delivery O2 Flow Rate FiO2 03/11/21 14:24 98 Nasal Cannula 3.00 03/11/21 13:00 78 03/11/21 11:45 36.6 10 147/56 (86) 03/10/21 16:55 28 Physical Exam Not examined due to PUI for Covid. Labs Laboratory Tests Test 03/10/21 19:45 03/11/21 05:10 03/11/21 05:18 03/11/21 10:45 Range/Units Glucometer 182 H 161 H 195 H 70-110 MG/DL White Blood Count 8.7 4.3-11.0 10^3/uL Red Blood Count 3.30 L 3.80-5.11 10^6/uL Hemoglobin 8.7 L 11.5-16.0 g/dL Hematocrit 30 L 35-52 % Mean Corpuscular Volume 90 80-99 fL Mean Corpuscular Hemoglobin 26 25-34 pg Mean Corpuscular Hemoglobin Concent 29 L 32-36 g/dL Red Cell Distribution Width 16.6 H 10.0-14.5 % Platelet Count 151 130-400 10^3/uL Mean Platelet Volume 10.7 9.0-12.2 fL Immature Granulocyte % (Auto) 1 % Neutrophils (%) (Auto) 84 H 42-75 % Lymphocytes (%) (Auto) 6 L 12-44 % Monocytes (%) (Auto) 7 0-12 % Eosinophils (%) (Auto) 1 0-10 % Basophils (%) (Auto) 1 0-10 % Neutrophils # (Auto) 7.3 1.8-7.8 10^3/uL Lymphocytes # (Auto) 0.5 L 1.0-4.0 10^3/uL Monocytes # (Auto) 0.6 0.0-1.0 10^3/uL Eosinophils # (Auto) 0.1 0.0-0.3 10^3/uL Basophils # (Auto) 0.0 0.0-0.1 10^3/uL Immature Granulocyte # (Auto) 0.1 0.0-0.1 10^3/uL Neutrophils % (Manual) 85 % Lymphocytes % (Manual) 7 % Monocytes % (Manual) 7 % Atypical Lymphocytes 1 % Anisocytosis SLIGHT Sodium Level 134 L 135-145 MMOL/L Potassium Level 3.5 L 3.6-5.0 MMOL/L Chloride Level 98 98-107 MMOL/L Carbon Dioxide Level 28 21-32 MMOL/L Anion Gap 8 5-14 MMOL/L Blood Urea Nitrogen 33 H 7-18 MG/DL Creatinine 1.79 H 0.60-1.30 MG/DL Estimat Glomerular Filtration Rate 29 BUN/Creatinine Ratio 18 Glucose Level 157 H 70-105 MG/DL Calcium Level 8.0 L 8.5-10.1 MG/DL Corrected Calcium 9.0 8.5-10.1 MG/DL Total Bilirubin 0.6 0.1-1.0 MG/DL Aspartate Amino Transf (AST/SGOT) 20 5-34 U/L Alanine Aminotransferase (ALT/SGPT) 15 0-55 U/L Alkaline Phosphatase 85 40-136 U/L Total Protein 6.8 6.4-8.2 GM/DL Albumin 2.7 L 3.2-4.5 GM/DL ECG Impression ECG Comment Sinus rhythm with nonspecific intraventricular conduction delay. Diagnosis/Problems Diagnosis/Problems (1) Acute on chronic combined systolic and diastolic congestive heart failure Assessment & Plan: She presents with dyspnea on exertion and to BNP level is ma rkedly elevated. She also has infiltrates on her chest CT which could be consistent with some degree of pulmonary edema. She has moderate left ventricular systolic dysfunction as noted on echocardiogram earlier this year. Unfortunately, she also has stage IV chronic kidney disease which makes management very difficult. She has received intravenous furosemide. We will need to watch her renal function closely. Often times, these patients will have renal venous hypertension related to significant total body edema and as we diurese these patients, the renal function may actually improve. (2) Coronary artery disease without angina pectoris Assessment & Plan: She is not having any classic angina and troponin level is normal. She has a known chronic total occlusion of the right coronary artery. I will resume her isosorbide mononitrate and atorvastatin. She is not on aspirin because she takes rivaroxaban for atrial fibrillation. (3) Cardiomyopathy Status: Chronic Assessment & Plan: Her most recent echocardiogram earlier this year showed moderate left ventricular systolic dysfunction with an estimated ejection fraction of 30%. She is allergic to beta-blockers. Lisinopril is on hold due to acute kidney injury. In light of the stage IV chronic kidney disease, she is not an ideal candidate for RENAY inhibitor, ARB, or aldosterone antagonists. (4) Paroxysmal atrial fibrillation Status: Chronic Assessment & Plan: She is presently in sinus rhythm. Continue rivaroxaban for stroke prophylaxis. She is on the renal adjusted dose due to creatinine above 1.5. (5) Primary hypertension Assessment & Plan: She was taking lisinopril at home and this is presently on hold due to acute kidney injury. She may need to change to an alternative antihypertensive agent if her renal function does not improve. (6) Mixed hyperlipidemia Status: Chronic Assessment & Plan: I have ordered her atorvastatin. (7) Acute kidney injury superimposed on chronic kidney disease Status: Acute Assessment & Plan: This will need to be followed closely with the intravenous diuretic. SVITLANA PRAJAPATI JR, MD Mar 11, 2021 11:19
[2021-03-11 11:45] VITALS: BP 147/56
--- NOTE | 2021-03-11 11:46 | Physical Therapy Evaluation ---
PT Evaluation-General Medical Diagnosis Admission Date Mar 10, 2021 at 16:44 Medical Diagnosis: CHF/Flu A/Covid Onset Date: Mar 10, 2021 Therapy Diagnosis Therapy Diagnosis: generalized weakness/debility Height/Weight Height (Feet): 5 Height (Inches): 2.00 Weight (Pounds): 179 Weight (Ounces): 5.0 Precautions Precautions/Isolations: Airborne Isolation, Droplet Isolation, Fall Prevention Referral Physician: Myles Reason for Referral: Evaluation/Treatment Medical History Pertinent Medical History: CAD, COPD, DM, Hypothroidism, [place], Neuropathy, PVD, Renal Insufficiency Additional Medical History Covid (+) November 2020 Current History EMS secondary to multiple issues (falls, abdominal pain, swelling) Reviewed History: Yes Social History Home: Single Level Current Living Status: Other Family Prior Prior Level of Function SCALE: Activities may be completed with or without assistive devices. 8-Zveekzfwde-kbscwfj completes the activity by him/herself with no assistance from a helper. 5-Set-up or Clean-up Assistance-helper sets up or cleans up; patient completes activity. [place] assists only prior to or following the activity. 4-Supervision or Touching Assistance-helper provides verbal cues and/or touching/steadying and/or contact guard assistance as patient completes activity. Assistance may be provided throughout the activity or intermittently. 3-Partial/Moderate Assistance-helper does LESS THAN HALF the effort. [place] lifts, holds or supports trunk or limbs, but provides less than half the effort. 2-Substantial/Maximal Assistance-helper does MORE THAN HALF the effort. [place] lifts or holds trunk or limbs and provides more than half the effort. 3-Eqwjoxuvy-xfznva does ALL the effort. Patient does none of the effort to complete the activity. Or, the assistance of 2 or more helpers is required for the patient to complete the activity. If activity was not attempted, code reason: 7-Patient Refused. 9-Not Applicable-not attempted and the patient did not perform the activity before the current illness, exacerbation or injury. 10-Not Attempted due to Environmental Limitations-(lack of equipment, weather restraints, etc.). 88-Not Attempted due to Medical Conditions or Safety Concerns. Bed Mobility: 6 Transfers (B,C,W/C): 6 Gait: 6 Stairs: 6 Indoor Mobility (Ambulation): Independent Stairs: Independent Prior Devices Use: Walker PT Evaluation-Current Subjective Patient agrees to PT. Objective Patient Orientation: Normal For Age Attachments: Oxygen, Cade Catheter ROM/Strength ROM Lower Extremities bilateral LE WFL Strength Lower Extremities 4-/5 grossly bilateral LE Integumentary/Posture Bowel Incontinence: No Bladder Incontinence: Cade Cath Posture kyphotic Neuromuscular (Tone, Coordination, Reflexes) grossly intact Sensory Vision: Functional Hearing: Functional Transfers Roll Left to Right (QC): 6 Sit to Lying (QC): 6 Lying to Sitting/Side of Bed(Q: 6 Sit to Stand (QC): 4 Chair/Api-dd-Widde Xfer(QC): 4 Gait Does the Patient Walk?: Yes Mode of Locomotion: Walk Anticipated Mode of Locomotion: Walk Walk 10 feet (QC): 4 Walk 50 ft with 2 Turns(QC): 88 Walk 150 ft (QC): 88 Distance: 10' Gait Assistive Device: None Comments/Gait Description utilized FWW in home/will issue FWW for hospital use for distance Wheelchair Training Does the Pt Use a Wheelchair?: No Balance Sitting Static: Normal Sitting Dynamic: Normal Standing Static: Fair Standing Dynamic: Fair Assessment/Needs 65 y.o. female, will benefit from skilled PT to address pulmonary function with functional strength and mobility. Patient does have Flu A and Covid at this time. Rehab Potential: Guarded PT Long-Term Goals Long-Term Goals PT Long-Term Goals Time Frame: Mar 30, 2021 Roll Left & Right (QC): 6 Sit to Lying (QC): 6 Lying-Sitting on Side/Bed(QC): 6 Sit to Stand (QC): 6 Chair/Byy-pj-Enqan Xfer(QC): 6 Toilet Transfer (QC): 6 Walk 10 feet (QC): 6 Walk 50ft with 2 Turns (QC): 6 Walk 150 ft (QC): 6 PT Plan Problem List Problem List: Activity Tolerance, Functional Strength, Safety, Balance, Gait, Transfer Treatment/Plan Treatment Plan: Continue Plan of Care Treatment Plan: Education, Functional Activity Марина, Functional Strength, Gait, Safety, Therapeutic Exercise, Transfers Treatment Duration: Mar 30, 2021 Frequency: 6 times per week Estimated Hrs Per Day: .25 hour per day Patient and/or Family Agrees t: Yes Time/GCodes Time In: 1115 Time Out: 1125 Total Billed Treatment Time: 10 Total Billed Treatment 1 visit EVModC 10 min LARY JOYNER PT Mar 11, 2021 11:46
--- NOTE | 2021-03-11 12:05 | Occupational Therapy Eval ---
OT Evaluation-General/PLF Medical Diagnosis Admission Date Mar 10, 2021 at 16:44 Medical Diagnosis: CHF/Flu A/Covid Onset Date: Mar 10, 2021 Therapy Diagnosis Therapy Diagnosis: decreased ADL status Height/Weight Height (Feet): 5 Height (Inches): 2.00 Weight (Pounds): 179 Weight (Ounces): 5.0 Precautions Precautions/Isolations: Airborne Isolation, Droplet Isolation, Fall Prevention Referral Physician: Myles Referral Reason: Evaluation/Treatment Medical History Pertinent Medical History: CAD, COPD, DM, Hypothroidism, [place], Neuropathy, PVD, Renal Insufficiency Additional Medical History COPD, CAD with stenting, DM, CKD, HTN, PVD, renal failure Current History EMS from home with abdominal pain, swelling, vomiting and diarrhea Social History Home: Single Level Current Living Status: Other Family Steps Into Home: 1 ADL-Prior Level of Function SCALE: Activities may be completed with or without assistive devices. 3-Anjcivadug-yicchyx completes the activity by him/herself with no assistance from a helper. 5-Set-up or Clean-up Assistance-helper sets up or cleans up; patient completes activity. [place] assists only prior to or following the activity. 4-Supervision or Touching Assistance-helper provides verbal cues and/or touching/steadying and/or contact guard assistance as patient completes activity. Assistance may be provided throughout the activity or intermittently. 3-Partial/Moderate Assistance-helper does LESS THAN HALF the effort. [place] lifts, holds or supports trunk or limbs, but provides less than half the effort. 2-Substantial/Maximal Assistance-helper does MORE THAN HALF the effort. [place] lifts or holds trunk or limbs and provides more than half the effort. 7-Wflxrdbqd-xavriu does ALL the effort. Patient does none of the effort to complete the activity. Or, the assistance of 2 or more helpers is required for the patient to complete the activity. If activity was not attempted, code reason: 7-Patient Refused. 9-Not Applicable-not attempted and the patient did not perform the activity before the current illness, exacerbation or injury. 10-Not Attempted due to Environmental Limitations-(lack of equipment, weather restraints, etc.). 88-Not Attempted due to Medical Conditions or Safety Concerns. ADL PLOF Comments Pt reports requiring assistance with ADLs at OF. She has a walker for functional mobility. Pt is usually able to don/doff ladle puller tshirt, but requires assistance with jackets and long sleeve shirts. Pt requires assistance in the shower, indicates she is able to wash UEs, but requires assistance with LEs. Pt is usually able to manage hygiene post BM. Total assistance with socks and shoes. Assistance threading LEs into pants. Self Care: Needed Some Help Functional Cognition: Independent OT Current Status Subjective Pt laying in bed, agreeable to OT tx. Mental Status/Objective Patient Orientation: Person, Place, Situation Attachments: Cade Catheter, Oxygen, Telemetry Current Hand Dominance: Right Upper Extremity ROM WFL, BUE shoulder flexion to approx 140 degrees Upper Extremity Coordination slightly decreased due to reports of numbness bilateral hands. Pt has difficulty holding cups without handles. Upper Extremity Sensation numbness bilateral hands/fingertips Upper Extremity Strength grossly 3/5 ADL-Treatment Eating (QC): 5 (Per pt report, able to use silverware to bring food to mouth. Per clincial judgment, pt requires set up assistance with contianers.) Oral Hygiene (QC): 4 (Per clincial judgment.) Toileting Hygiene (QC): 1 (catheter) Other Treatments Pt laying in bed, provided information about PLOF and home set up. Pt agreeable to OT Tx, transferred supine to sit EOB, SBA. In order to increase BUE strength and activity tolerance as well as pulmonary function, pt completed x10 reps BUE shoulder flexion and front punch, slow pace. Pt then stood from EOB, SBA, taking a few steps towards the R in order to scoot up towards HOB, pt returned to sit EOB. Pt requests to stay up on EOB at this time. Post tx, pt seated EOB, call light in reach and all needs met, RN aware of pt's position. Education OT Patient Education: Correct positioning, Energy conservation, Exercise program, Modified ADL techniques, Progress toward Goal/Update tx plan, Purpose of tx/functional activities Teaching Recipient: Patient Teaching Methods: Discussion Response to Teaching: Verbalize Understanding OT Latent Print Examiner Goals Halfway Goals Time Frame: Mar 22, 2021 Eating (QC): 6 Oral Hygiene (QC): 6 Toileting Hygiene (QC): 6 Upper Body Dressing (QC): 5 Additional Goals: 1-Demonstrate ADL Tasks, 2-Verbalize Understanding, 3- ImproveStrength/Марина 1=Demonstrate adherence to instructed precautions during ADL tasks. 2=Patient will verbalize/demonstrate understanding of assistive devices /modifications for ADL. 3=Patient will improve strength/tolerance for activity to enable patient to perform ADL's. OT Education/Plan Problem List/Assessment Assessment: Decreased Activ Tolerance, Decreased UE Strength, Impaired Funct Balance, Impaired I ADL's, Impaired Self-Care Skills Discharge Recommendations Plan/Recommendations: Continue POC Therapy Discharge Recommendati: Home & Family Treatment Plan/Plan of Care Patient would benefit from OT for education, treatment and training to promote independence in ADL's, mobility, safety and/or upper extremity function for ADL's. Plan of Care: ADL Retraining, Functional Mobility, UE Funct Exercise/Act Treatment Duration: Mar 22, 2021 Frequency: 3 times per week (3-5 times per week) Estimated Hrs Per Day: .25 hour per day Rehab Potential: Guarded Time/GCodes Start Time: 11:30 Stop Time: 11:45 Total Time Billed (hr/min): 15 Billed Treatment Time 1, SUZANNA RIVERA OT Mar 11, 2021 12:05
[2021-03-11] MEDS ORDERED: SERT-413 PO (12:29)
[2021-03-11 16:00] VITALS: BP 145/60
[2021-03-11] MEDS ORDERED: ISOSORBIDE MONONITRATE 60 MG (IMDUR) TAB PO NR (16:00)
--- NOTE | 2021-03-11 16:18 | History & Physical-Hospitalist ---
HARJINDER HENRY 03/11/21 1618: History of Present Illness HPI/Chief Complaint Per Nursing: Patient brought herself to the hospital because of body aches, abdominal pain/swelling, and multiple falls. She fell recently and has bruise on face and laceration on knee. Patient frequently falls out of bed even with guard rails on her bed. Patient has no complaints this morning. She ate breakfast and has been on 3 liters via [place], which is her baseline at home. Source: patient, RN/, RN notes reviewed Date Seen 03/11/21 Attending Physician Viet Wesley MD PCP SelfBear MD Referring Physician Date of Admission Mar 10, 2021 at 16:44 Home Medications & Allergies Home Medications Reviewed patient Home Medication Reconciliation performed by pharmacy medication reconciliations registered pharmacy technician and/or nursing. Patients Allergies have been reviewed. Allergies Allergies Uncoded Allergies Beta bernard ( Adverse Reaction, Unknown, 2.4 second pause (07/2018), 05/16/19) Past Bsxhbhx-Qvynli-Chofrz Hx Patient Social History Tobacco Use?: Yes Tobacco type used: Cigarettes Smoking Status: Current Everyday Smoker Use of E-Cig and/or Vaping dev: No Substance use?: No Alcohol Use?: No Pt feels they are or have been: No Immunizations Up To Date Date of Influenza Vaccine: Nov 18, 2019 Tetanus Booster (TDap): Unknown Date of Pneumonia Vaccine: Mar 09, 2016 Seasonal Allergies Seasonal Allergies: No Current Status Advance Directives: No Communicates: Verbally Primary Language: Pashto Preferred Spoken Language: Pashto Is interpretation needed?: No Past Medical History Surgeries: Cardiac, Coronary Stent, Hysterectomy COPD Cardiomyopathy, Chronic Edema/Swelling, Coronary Artery Disease, Heart Attack, H igh Cholesterol, Hypertension, Peripheral Vascular Neuropathy 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 ALCALA: CONCLUSIONS: 1. Diffuse sojr-ee-kpuckiyt disease of the left coronary system without significant focal stenoses. There is a patent stent in the proximal left anterior descending that is known to be a drug-eluting stent measuring 3.0 x 24 mm and that was placed in 01/2018 in [place], [place]. The right coronary artery is chronically occluded at its ostium and is collateralized from the left coronary system. 2. Elevated left ventricular end-diastolic pressure of approximately 27 mmHg. DISCUSSION AND RECOMMENDATIONS: The cardiac catheterization findings are not significantly changed compared to the findings of 05/2019. Based on the study, it appears appropriate to continue a conservative approach. Her most recent ejection fraction on echocardiography of 07/11/[address] Willoughby was 30 to 35%. We are optimizing medical regimen and have advised close clinical followup. She has a LifeVest in place. We recommend repeat echocardiography in 10/2020 to see if ejection fraction is improved. Physical Exam Physical Exam Vital Signs Vital Signs - First Documented 03/10/21 03/10/21 13:15 16:55 Temp 36.2 Pulse 88 Resp 23 B/P (MAP) 169/107 (127) Pulse Ox 98 O2 Delivery Nasal Cannula O2 Flow Rate 2.00 FiO2 28 Capillary Refill : Less Than 3 Seconds Height, Weight, BMI Height: 5'2.00" Weight: 179lbs. 5.0oz. 81.135797re; 35.70 BMI Method:Stated Results Results/Procedures Labs Laboratory Tests 03/10/21 13:20 03/11/21 05:10 Patient resulted labs reviewed. Imaging: Reviewed Imaging Films, Reviewed Imaging Report Imaging CT chest, abdomen, pelvis Meds oseltamivir, insulin aspart, docusate, rivaroxaban, furosemide, ondansetron, morphine, oxycodone, hydrocodone/acetaminophen, bisacodyl, [place], diphenhydramine, polyethylene glycol, acetaminophen, melatonin Assessment/Plan Admission Diagnosis CHF exacerbation Admission Status: Inpatient Order (span 2 midnights) Reason for Inpatient Admission: Monitor for worsening of respiratory symptoms Assessment and Plan Radha Collins is a 65 year old female with a PMH of insulin-dependent T2DM, CHF, COPD, anemia, CAD, HTN, hypothyroidism, renal insufficiency, HLD who was admitted to hospital for multiple symptoms including body aches, edema, weight gain. Congestive heart failure, reduced ejection fraction (EF 30-35%) > IV furosemide Bilateral pneumonia on CT, Covid positive, influenza A positive > Oseltamivir and dexamethasone COPD > PRN albuterol sulfate Insulin-dependent T2DM > Insulin aspart with meals Anemia > Monitor hemoglobin daily with CBC CAD with h/o of heart cath + stent > Continue OP atorvastatin, rivaroxaban, isosorbide mononitrate Renal insufficiency > Monitor renal function with daily CMPs Hypertension > Hold OP lisinopril/HCTZ due to kidney function Constipation > bisacodyl, polyethylene glycol, and dulcolax Diagnosis/Problems Diagnosis/Problems (1) CHF exacerbation Onset Date: Unknown Status: Acute Assessment & Plan: IV furosemide Qualifiers: Heart failure type: systolic Qualified Codes: I50.23 - Acute on chronic systolic (congestive) heart failure (2) Pneumonia Onset Date: Unknown Status: Acute Assessment & Plan: Dexamethasone Qualifiers: Pneumonia type: due to COVID-19 virus Qualified Codes: U07.1 - COVID-19; J12.82 - Pneumonia due to coronavirus disease 2019 (3) Influenza A Onset Date: Unknown Status: Acute Assessment & Plan: Oseltamivir (4) Coronary artery disease without angina pectoris Onset Date: Unknown Status: Chronic Assessment & Plan: Continue OP atorvastatin, rivaroxaban, isosorbide mononitrate Qualifiers: Coronary Disease-Associated Artery/Lesion type: [place] artery [place] vs. transplanted heart: [place] heart Qualified Codes: I25.10 - Atherosclerotic heart disease of [place] coronary artery without angina pectoris (5) Primary hypertension Onset Date: Unknown Status: Chronic Assessment & Plan: Hold OP lisinopril/HCTZ due to kidney function (6) Hypothyroidism Onset Date: Unknown Status: Chronic Assessment & Plan: Continue OP levothyroxine Qualifiers: Hypothyroidism type: unspecified Qualified Codes: E03.9 - Hypothyroidism, unspecified (7) COPD (chronic obstructive pulmonary disease) with acute bronchitis Onset Date: Unknown Status: Chronic Assessment & Plan: OP albuterol sulfate PRN (8) Mixed hyperlipidemia Onset Date: Unknown Status: Chronic Assessment & Plan: OP atorvastatin (9) Insulin dependent diabetes mellitus Onset Date: Unknown Status: Chronic Assessment & Plan: Insulin aspart with meals (10) Acute on chronic renal failure Onset Date: Unknown Status: Acute Assessment & Plan: PO fluid intake. Monitor daily renal labs. Qualifiers: Acute renal failure type: unspecified Chronic kidney disease stage: stage 3 (moderate) Chronic kidney disease stage 3 subtype: stage 3b (GFR 30-44) [place] lified Codes: N17.9 - Acute kidney failure, unspecified; N18.32 - Chronic kidney disease, stage 3b (11) Constipation Status: Chronic Assessment & Plan: bisacodyl, polyethylene glycol, dulcolax Qualifiers: Constipation type: unspecified constipation type Qualified Codes: K59.00 - Constipation, unspecified VIET WESLEY MD 03/11/212058: History of Present Illness HPI/Chief Complaint At time of my exam, patient was sleeping with her head at the foot of the bed and was somewhat difficult to arouse, but when awake answered questions appro priately, however, she continued to fall asleep immediately after being asked questions and I was unable to obtain a good history. Time Seen by a Provider: 10:40 Past Znllfxt-Ovmjcr-Ofsouy Hx Family Medical History Completed stroke 19 FATHER Diabetes mellitus 19 FATHER G8 BROTHER G8 SISTER Review of Systems Constitutional: other (unable to obtain due to lethargy) Physical Exam Physical Exam General Appearance: No Apparent Distress, Other (lethargic) Respiratory: Lungs Clear, Normal Breath Sounds Cardiovascular: Regular Rate, Rhythm, No Edema Gastrointestinal: Normal Bowel Sounds, Non Tender, Soft Extremity: No Pedal Edema Neurologic/Psychiatric: Other (quickly falls asleep but able to answer q uestions appropriately when awakened) Supervisory-Addendum Brief Verification & Attestation Participated in pt care: history, MDM, physical Personally performed: exam, history, MDM Care discussed with: Medical Student Procedures: n/a Verification and Attestation of Medical Student E/M Service I reviewed and verified all information documented by the medical student and made modifications to such information, when appropriate. I personally performed the physical exam and medical decision making. I did not start dexamethasone as she is on her baseline supplemental oxygen, the contribution of positive COVID test to her clinical picture is unclear. Viet Wesley, Mar 11, 2021,20:58 HARJINDER HENRY Mar 11, 2021 16:18 VIET WESLEY MD Mar 11, 2021 20:59
[2021-03-11] MEDS: RIVAROXABAN 15 MG TABLET (XARELTO) PO SCH (16:51)
[2021-03-11 20:00] VITALS: BP 142/53
[2021-03-12] VITALS: BP 156/56
[2021-03-12] MEDS: RT-ALBUTEROL HFA 8.5 GM INHALER IH SCH ×3 (02:33→15:28)
[2021-03-12 04:00] VITALS: BP 132/68
[2021-03-12 05:16] LABS: BASOPHILS % (AUTO) 1 % (0-10); EOSINOPHILS # (AUTO) 0.1 10^3/uL (0.0-0.3); EOSINOPHILS % (AUTO) 2 % (0-10); HEMATOCRIT 28 % (35-52); HEMOGLOBIN 7.9 g/dL (11.5-16.0); LYMPHOCYTES # (AUTO) 0.9 10^3/uL (1.0-4.0); LYMPHOCYTES % (AUTO) 12 % (12-44); MEAN CORPUSCULAR HEMOGLOBIN 26 pg (25-34); MEAN CORPUSCULAR HGB CONC 29 g/dL (32-36); MEAN CORPUSCULAR VOLUME 91 fL (80-99); MEAN PLATELET VOLUME 10.6 fL (9.0-12.2); MONOCYTES # (AUTO) 0.7 10^3/uL (0.0-1.0); MONOCYTES % (AUTO) 9 % (0-12); NEUTROPHILS # (AUTO) 5.4 10^3/uL (1.8-7.8); NEUTROPHILS % (AUTO) 75 % (42-75); PLATELET COUNT 135 10^3/uL (130-400); WHITE BLOOD COUNT 7.3 10^3/uL (4.3-11.0)
[2021-03-12 05:36] LABS: ALBUMIN 2.5 GM/DL (3.2-4.5); POTASSIUM 3.7 MMOL/L (3.6-5.0)
[2021-03-12 05:38] LABS: CALCIUM 7.7 MG/DL (8.5-10.1)
[2021-03-12 05:39] LABS: TOTAL PROTEIN 6.2 GM/DL (6.4-8.2)
[2021-03-12 05:41] LABS: BILIRUBIN,TOTAL 0.5 MG/DL (0.1-1.0)
[2021-03-12 05:42] LABS: CREATININE SERUM 2.04 MG/DL (0.60-1.30)
[2021-03-12] MEDS: inSUlin ASPART (NovoLOG) 1 UNIT/0.01 ML (CHARGE PER UNIT) SC SCH ×3 (06:35→16:02)
[2021-03-12 08:00] VITALS: BP 146/68
[2021-03-12] MEDS ORDERED: ISOSORBIDE MONONITRATE 60 MG (IMDUR) TAB PO SCH (09:00)
[2021-03-12] MEDS: FUROSEMIDE 40 MG/4 ML INJ (LASIX) IVP SCH (10:09)
[2021-03-12] MEDS: OSELTAMIVIR 30 MG (TAMIFLU) CAPSULE PO SCH (10:10)
[2021-03-12] MEDS: DOCUSATE SODIUM 100 MG (COLACE) CAP PO SCH (10:10)
--- NOTE | 2021-03-12 10:10 | Occupational Ther Daily Note ---
OT Current Status-Daily Note Subjective Pt sleeping leaning toward L side while sitting EOB, woke after calling name multiple times. Pt agrees to therapy. No c/o pain. Mental Status/Objective Patient Orientation: Person, Place, Time, Situation Attachments: IV, Oxygen (3L), Telemetry ADL-Treatment Pt able to stand and walk with hand hold and holding onto bed, around bed and attempted to reach bathroom unable to due to length of tubing. Pt then was able to open packages and containers then use regular utensils to eat. After session, pt sitting EOB with call light/phone in reach. All needs met in room. Therapy Code Descriptions/Definitions Functional Harper Measure: 0=Not Assessed/NA 4=Minimal Assistance 1=Total Assistance 5=Supervision or Setup 2=Maximal Assistance 6=Modified Harper 3=Moderate Assistance 7=Complete IndependenceSCALE: Activities may be completed with or without assistive devices. 3-Aclzlsdfiu-ktfnimn completes the activity by him/herself with no assistance from a helper. 5-Set-up or Clean-up Assistance-helper sets up or cleans up; patient completes activity. [place] assists only prior to or following the activity. 4-Supervision or Touching Assistance-helper provides verbal cues and/or touching/steadying and/or contact guard assistance as patient completes activity. Assistance may be provided throughout the activity or intermittently. 3-Partial/Moderate Assistance-helper does LESS THAN HALF the effort. [place] lifts, holds or supports trunk or limbs, but provides less than half the effort. 2-Substantial/Maximal Assistance-helper does MORE THAN HALF the effort. [place] lifts or holds trunk or limbs and provides more than half the effort. 1-Dzedijdaj-uzwshm does ALL the effort. Patient does none of the effort to complete the activity. Or, the assistance of 2 or more helpers is required for the patient to complete the activity. If activity was not attempted, code reason: 7-Patient Refused. 9-Not Applicable-not attempted and the patient did not perform the activity before the current illness, exacerbation or injury. 10-Not Attempted due to Environmental Limitations-(lack of equipment, weather restraints, etc.). 88-Not Attempted due to Medical Conditions or Safety Concerns. Eating (QC): 6 OT Senior Care Goals Manager Web Application Goals Time Frame: Mar 22, 2021 Eating (QC): 6 Oral Hygiene (QC): 6 Toileting Hygiene (QC): 6 Upper Body Dressing (QC): 5 Additional Goals: 1-Demonstrate ADL Tasks, 2-Verbalize Understanding, 3- ImproveStrength/Марина 1=Demonstrate adherence to instructed precautions during ADL tasks. 2=Patient will verbalize/demonstrate understanding of assistive devices/modifications for ADL. 3=Patient will improve strength/tolerance for activity to enable patient to perform ADL's. OT Education/Plan Problem List/Assessment Assessment: Decreased Activ Tolerance, Decreased UE Strength, Impaired Self- Care Skills Discharge Recommendations Plan/Recommendations: Continue POC Treatment Plan/Plan of Care Patient would benefit from OT for education, treatment and training to promote independence in ADL's, mobility, safety and/or upper extremity function for ADL's. Plan of Care: ADL Retraining, Functional Mobility, UE Funct Exercise/Act Treatment Duration: Mar 22, 2021 Frequency: 3 times per week (3-5 times per week) Estimated Hrs Per Day: .25 hour per day Rehab Potential: Guarded Time/GCodes Start Time: 09:20 Stop Time: 09:35 Total Time Billed (hr/min): 15 Billed Treatment Time 1 visit-ADL 1 (15 min) PARVEEN MC Mar 12, 2021 10:10
[2021-03-12] MEDS: NYSTATIN CREAM (MYCOSTATIN) 30 GM TUBE TP SCH ×2 (10:11→12:41)
--- NOTE | 2021-03-12 10:30 | Physical Therapy Daily Note ---
PT Daily Note-Current Subjective Patient reports she is feeling much better. Sitting EOB eating breakfast. Mental Status Patient Orientation: Normal For Age Attachments: Oxygen, Cade Catheter Transfers SCALE: Activities may be completed with or without assistive devices. 7-Vuoizowokf-vazcuis completes the activity by him/herself with no assistance from a helper. 5-Set-up or Clean-up Assistance-helper sets up or cleans up; patient completes activity. [place] assists only prior to or following the activity. 4-Supervision or Touching Assistance-helper provides verbal cues and/or touching/steadying and/or contact guard assistance as patient completes activity. Assistance may be provided throughout the activity or intermittently. 3-Partial/Moderate Assistance-helper does LESS THAN HALF the effort. [place] lifts, holds or supports trunk or limbs, but provides less than half the effort. 2-Substantial/Maximal Assistance-helper does MORE THAN HALF the effort. [place] lifts or holds trunk or limbs and provides more than half the effort. 7-Kkbpsdcxe-nlwqvr does ALL the effort. Patient does none of the effort to complete the activity. Or, the assistance of 2 or more helpers is required for the patient to complete the activity. If activity was not attempted, code reason: 7-Patient Refused. 9-Not Applicable-not attempted and the patient did not perform the activity before the current illness, exacerbation or injury. 10-Not Attempted due to Environmental Limitations-(lack of equipment, weather restraints, etc.). 88-Not Attempted due to Medical Conditions or Safety Concerns. Sit to Stand (QC): 4 (CGA for safety) Chair/Vdr-oq-Wloga Xfer(QC): 4 (CGA for safety) Gait Training Distance: 75' Walk 10 feet (QC): 4 Walk 50 ft with 2 Turns(QC): 4 Gait Assistive Device: FWW slightly unsteady gait sequence with self correct. Assessment Patient up in chair with needs met. PT to increase activity as tolerated by patient. PT Halfway Goals Halfway Goals PT Halfway Goals Time Frame: Mar 30, 2021 Roll Left & Right (QC): 6 Sit to Lying (QC): 6 Lying-Sitting on Side/Bed(QC): 6 Sit to Stand (QC): 6 Chair/Qgg-cg-Gpoyy Xfer(QC): 6 Toilet Transfer (QC): 6 Walk 10 feet (QC): 6 Walk 50ft with 2 Turns (QC): 6 Walk 150 ft (QC): 6 PT Plan Treatment/Plan Treatment Plan: Continue Plan of Care Treatment Plan: Education, Functional Activity Марина, Functional Strength, Gait, Safety, Therapeutic Exercise, Transfers Treatment Duration: Mar 30, 2021 Frequency: 6 times per week Estimated Hrs Per Day: .25 hour per day Patient and/or Family Agrees t: Yes Time/GCodes Time In: 936 Time Out: 949 Total Billed Treatment Time: 13 Total Billed Treatment 1 visit FA 13 min LARY JOYNER PT Mar 12, 2021 10:30
[2021-03-12 11:34] VITALS: BP 148/62
[2021-03-12] MEDS ORDERED: OSEL30CA PO (13:12)
--- NOTE | 2021-03-12 13:19 | Discharge Summary ---
Discharge Summary Hospital Course Hospital Course Date of Admission: Mar 10, 2021 at 16:44 Admission Diagnosis : Radha Collins is a 65 year old female with a PMH of insulin-dependent T2DM, CHF, COPD, anemia, CAD, HTN, hypothyroidism, renal insufficiency, HLD who was admitted to hospital for multiple symptoms including body aches, edema, weight gain. Congestive heart failure, reduced ejection fraction (EF 30-35%) Bilateral pneumonia on CT, Covid positive, influenza A positive COPD Insulin-dependent T2DM Anemia CAD with h/o of heart cath + stent Renal insufficiency Hypertension Constipation Family Physician/Provider: Bear Menon MD Date of Discharge: 03/12/21 Discharge Diagnosis: Congestive heart failure, reduced ejection fraction (EF 30-35%) > IV furosemide given and she felt improved, remained on home supplemental oxygen level. Bilateral pneumonia on CT, Covid positive, influenza A positive > Oseltamivir given, no clear evidence that COVID was a significant contributer given she remained on home supplemental oxygen. COPD > PRN albuterol sulfate Insulin-dependent T2DM > Continued insulin CAD with h/o of heart cath + stent > Continued OP atorvastatin, rivaroxaban, isosorbide mononitrate, Cardiology consulted. Chronic Renal insufficiency > Monitored, cr up slightly at 2.05 on day of d/c, but baseline appears to be around 1.7 and she had received IV lasix, she was hopeful to go home, encouraged to have renal function checked again soon in clinic. Hypertension > Held OP lisinopril/HCTZ due to kidney function, resumed when noted that creatinine was near baseline. Constipation > bisacodyl, polyethylene glycol, and dulcolax Hospital Course: See discharge diagnoses. Labs and Pending Lab Test: Laboratory Tests 03/11/21 16:15: Glucometer 219H 03/11/21 20:39: Glucometer 167H 03/12/21 05:00: White Blood Count 7.3, Red Blood Count 3.03L, Hemoglobin 7.9L, Hematocrit 28L, Mean Corpuscular Volume 91, Mean Corpuscular Hemoglobin 26, Mean Corpuscular Hemoglobin Concent 29L, Red Cell Distribution Width 16.5H, Platelet Count 135, Mean Platelet Volume 10.6, Immature Granulocyte % (Auto) 1, Neutrophils (%) (Auto) 75, Lymphocytes (%) (Auto) 12, Monocytes (%) (Auto) 9, Eosinophils (%) (Auto) 2, Basophils (%) (Auto) 1, Neutrophils # (Auto) 5.4, Lymphocytes # (Auto) 0.9L, Monocytes # (Auto) 0.7, Eosinophils # (Auto) 0.1, Basophils # (Auto) 0.0, Immature Granulocyte # (Auto) 0.1, Sodium Level 134L, Potassium Level 3.7, Chloride Level 98, Carbon Dioxide Level 26, Anion Gap 10, Blood Urea Nitrogen 37H, Creatinine 2.04H, Estimat Glomerular Filtration Rate 25, BUN/Creatinine Ratio 18, Glucose Level 166H, Calcium Level 7.7L, Corrected Calcium 8.9, Total Bilirubin 0.5, Aspartate Amino Transf (AST/SGOT) 20, Alanine Aminotransferase (ALT/SGPT) 14, Alkaline Phosphatase 69, Total Protein 6.2L, Albumin 2.5L Home Meds Active Tamiflu (Oseltamivir Phosphate) 30 Mg Capsule 30 Mg PO BID 4 Days Reported Sertraline HCl 50 Mg Tablet 50 Mg PO DAILY Zestoretic 20-12.5 mg Tablet (Lisinopril/Hydrochlorothiazide) 1 Each Tablet 1 Each PO DAILY Proair Hfa (Albuterol Sulfate) 1 Puff Puff 2 Puff IH Q4H PRN Furosemide 20 Mg Tablet 20 Mg PO DAILY Hydrocodone-Acetamin 5-325 mg (Hydrocodone/Acetaminophen) 1 Each Tablet 1-2 Tab PO HS PRN Isosorbide Mononitrate ER (Isosorbide Mononitrate) 60 Mg Tab 60 Mg PO DAILY Lantus Solostar (Insulin Glargine,Hum.rec.anlog) 100 Unit/1 Ml Insuln.pen 30 Units SQ BID Novolog Flexpen (Insulin Aspart) 300 Units/3 Ml Solution Units SQ TID Xarelto (Rivaroxaban) 20 Mg Tablet 20 Mg PO DAILY Gabapentin 600 Mg Tablet 600 Mg PO TID Nitroglycerin 0.4 Mg Tab.subl 0.4 Mg SL UD PRN Atorvastatin Calcium 40 Mg Tablet 40 Mg PO HS Levothyroxine Sodium 88 Mcg Tablet 88 Mcg PO DAILY Assessment/Pt DC Instructions Follow up with primary physician within a few days of discharge, get your kidney function rechecked within a few days of discharge. Discharge Diet: ADA Diet Activity as Tolerated: Yes Discharge Physical Examination Allergies: Uncoded Allergies: Beta bernard (Adverse Reaction, Unknown, 2.4 second pause (07/2018), 05/16/19) General Appearance: No Apparent Distress Respiratory: Normal Breath Sounds, No Accessory Muscle Use Cardiovascular: Regular Rate, Rhythm, No Murmur Gastrointestinal: Normal Bowel Sounds, Non Tender, Soft Extremity: Other (trace pedal edema, erythema and peeling skin) Skin: Warm/Dry Neurologic/Psychiatric: Alert, Normal Mood/Affect VIET WESLEY MD Mar 12, 2021 13:18
== END 2021-03-12 19:12 | disposition home or self-care (01) | DRG 177 ==
LOC: EDUNIT# 13:14 → ER FS 13:16 → CSD 16:30 → OBSVTOIN 16:44 → CSD 03-11 15:49
PROVIDERS: ADMIT Internal Medicine; ATTEND Family Medicine
DX: U07.1 COVID-19 (principal); J12.82 Pneumonia due to coronavirus disease 2019; J10.00 Influenza due to other identified influenza virus with unspecified type of pneumonia; I50.43 Acute on chronic combined systolic (congestive) and diastolic (congestive) heart failure; I13.0 Hypertensive heart and chronic kidney disease with heart failure and stage 1 through stage 4 chronic kidney disease, or unspecified chronic kidney disease; N18.4 Chronic kidney disease, stage 4 (severe); N17.9 Acute kidney failure, unspecified; I42.9 Cardiomyopathy, unspecified; J44.0 Chronic obstructive pulmonary disease with (acute) lower respiratory infection; E11.22 Type 2 diabetes mellitus with diabetic chronic kidney disease; I25.82 Chronic total occlusion of coronary artery; I25.10 Atherosclerotic heart disease of native coronary artery without angina pectoris; E78.00 Pure hypercholesterolemia, unspecified; E11.40 Type 2 diabetes mellitus with diabetic neuropathy, unspecified; E03.9 Hypothyroidism, unspecified; S81.011A Laceration without foreign body, right knee, initial encounter; I48.0 Paroxysmal atrial fibrillation; F17.210 Nicotine dependence, cigarettes, uncomplicated; E78.2 Mixed hyperlipidemia; S00.83XA Contusion of other part of head, initial encounter; D64.9 Anemia, unspecified; K59.00 Constipation, unspecified; I25.2 Old myocardial infarction; Z79.4 Long term (current) use of insulin; Z79.01 Long term (current) use of anticoagulants; Z95.5 Presence of coronary angioplasty implant and graft; Z91.81 History of falling; Z83.3 Family history of diabetes mellitus; Z99.81 Dependence on supplemental oxygen; Z23 Encounter for immunization; W19.XXXA Unspecified fall, initial encounter
CPT/HCPCS: 36415; 51702; 70450; 71250; 72125; 74176; 80053; 82947; 83690; 83880; 84484; 85007; 85025; 85027; 85610; 85730; 87636; 87804; 90715; 93005; 93041; 94640

== ENCOUNTER 2021-03-16 21:48 | Emergency (ER) | payer SELFPAY ==
[~2021-03-16] VITALS: Ht 154 cm; Wt 84.0 kg
[2021-03-16 21:48] VITALS: BP 170/81
[~2021-03-16 21:48] MED LIST changes: +OSEL30CA PO; +SERT-413 PO
[2021-03-16 22:13] LABS: BASOPHILS # (AUTO) 0.1 10^3/uL (0.0-0.1); BASOPHILS % (AUTO) 0 % (0-10); EOSINOPHILS % (AUTO) 0 % (0-10); HEMATOCRIT 35 % (35-52); HEMOGLOBIN 10.3 g/dL (11.5-16.0); LYMPHOCYTES # (AUTO) 0.9 X 10^3 (1.0-4.0); LYMPHOCYTES % (AUTO) 8 % (12-44); MEAN CORPUSCULAR HEMOGLOBIN 26 pg (25-34); MEAN CORPUSCULAR HGB CONC 30 g/dL (32-36); MEAN CORPUSCULAR VOLUME 89 fL (80-99); MEAN PLATELET VOLUME 12.5 fL (9.0-12.2); MONOCYTES % (AUTO) 9 % (0-12); NEUTROPHILS # (AUTO) 9.9 X 10^3 (1.8-7.8); NEUTROPHILS % (AUTO) 83 % (42-75); PLATELET COUNT 158 10^3/uL (130-400)
--- NOTE | 2021-03-16 22:13 | ED General ---
General Stated Complaint: COVID/FLU Source of Information: Patient, EMS, Old Records History of Present Illness Date Seen by Provider: Mar 16, 2021 Time Seen by Provider: 21:48 Initial Comments 65-year-old female presenting with complaints of chest pain earlier today, cough, shortness of breath, general malaise. She was seen last weekend in the emergency department here in [place] and admitted to [facility] for CHF exacerbation, influenza and Covid. She had been diuresed some in the hospital and then was felt stable for discharge. She does use home oxygen at night. She has chronic coronary artery disease and congestive heart failure. She has chronic renal insufficiency. She had felt that she was more short of breath than usual and since she was still coughing and had the chest pain earlier today she decided to be checked out here in the ED. She had tried to go to [place] [facility] yesterday to be seen about her Covid infection but waited several hours and was never seen in the ER. They ended up spending the night in a hotel room and then coming back to [place]. Timing/Duration: 1 Week Severity: Moderate Associated Systoms: Chest Pain (earlier today had sharp chest pain), Cough (for over a week); No Diaphoresis, No Fever/Chills; Loss of Appetite, Malaise; No Nausea/Vomiting; Shortness of Air; No Syncope; Weakness (generalized) Allergies and Home Medications Allergies Uncoded Allergies: Beta bernard (Adverse Reaction, Unknown, 2.4 second pause (07/2018), 05/16/19) Patient Home Medication List Home Medication List Reviewed: Yes Albuterol Sulfate (Proair Hfa) 1 Puff Puff, 2 PUFF IH Q4H PRN for SHORTNESS OF BREATH, (Reported) Entered as Reported by: COLBY SCOTT on 01/23/21 1409 Atorvastatin Calcium (Atorvastatin Calcium) 40 Mg Tablet, 40 MG PO HS, (Reported) Entered as Reported by: SIXTO CARVALHO on 07/28/18 1105 Furosemide (Furosemide) 20 Mg Tablet, 20 MG PO DAILY, (Reported) Entered as Reported by: COLBY SCOTT on 01/23/21 1409 Gabapentin (Gabapentin) 600 Mg Tablet, 600 MG PO TID, (Reported) Entered as Reported by: SEVERO TESFAYE on 09/04/20 1326 Hydrocodone/Acetaminophen (Hydrocodone-Acetamin 5-325 mg) 1 Each Tablet, 1-2 TAB PO HS PRN for PAIN-MODERATE (5-7), (Reported) Entered as Reported by: COLBY SCOTT on 01/23/21 1409 Insulin Aspart (Novolog Flexpen) 300 Units/3 Ml Solution, UNITS SQ TID, (Reported) Entered as Reported by: COLBY SCOTT on 01/23/21 1409 Insulin Glargine,Hum.rec.anlog (Lantus Solostar) 100 Unit/1 Ml Insuln.pen, 30 UNITS SQ BID, (Reported) Entered as Reported by: COLBY SCOTT on 01/23/21 1409 Isosorbide Mononitrate (Isosorbide Mononitrate ER) 60 Mg Tab, 60 MG PO DAILY, (Reported) Entered as Reported by: COLBY SCOTT on 01/23/21 1409 Levothyroxine Sodium (Levothyroxine Sodium) 88 Mcg Tablet, 88 MCG PO DAILY, (Reported) Entered as Reported by: MARY SAEED on 02/01/18 0923 Lisinopril/Hydrochlorothiazide (Zestoretic 20-12.5 mg Tablet) 1 Each Tablet, 1 EACH PO DAILY, (Reported) Entered as Reported by: COLBY SCOTT on 01/23/21 1412 Nitroglycerin (Nitroglycerin) 0.4 Mg Tab.subl, 0.4 MG SL UD PRN for CHEST PAIN, (Reported) Entered as Reported by: SIXTO CARVALHO on 07/28/18 1105 Ondansetron (Ondansetron Odt) 4 Mg Tab.rapdis, 4 MG PO Q6H PRN for NAUSEA/VOMITING Prescribed by: LUCINDA WANG on 03/16/21 2333 Oseltamivir Phosphate (Tamiflu) 30 Mg Capsule, 30 MG PO BID Prescribed by: VIET WESLEY on 03/12/21 1312 Rivaroxaban (Xarelto) 20 Mg Tablet, 20 MG PO DAILY, (Reported) Entered as Reported by: COLBY SCOTT on 01/23/21 1409 Sertraline HCl (Sertraline HCl) 50 Mg Tablet, 50 MG PO DAILY, (Reported) Entered as Reported by: COLBY SCOTT on 03/11/21 1229 Discontinued Medications Silver Sulfadiazine (Silver Sulfadiazine) 50 Gm Cream..g., 1 APPLIC TOP DAILY, (Reported) Discontinued Reason: Duplicate Order Entered as Reported by: COLBY SCOTT on 01/23/21 1409 Sulfamethoxazole/Trimethoprim (Bactrim Ds Tablet) 1 Each Tablet, 1 EACH PO BID, (Reported) Discontinued Reason: Duplicate Order Entered as Reported by: COLBY SCOTT on 01/23/21 1409 Review of Systems Review of Systems Constitutional: see HPI, malaise, weakness (generalized weakness) EENTM: hoarseness, nose congestion Respiratory: cough, orthopnea, short of breath, wheezing Cardiovascular: see HPI, edema Gastrointestinal: no symptoms reported Genitourinary: no symptoms reported Musculoskeletal: no symptoms reported Skin: No rash Psychiatric/Neurological: Anxiety Past Habqfvh-Sviwir-Npjkbn Hx Patient Social History Tobacco Use?: No Use of E-Cig and/or Vaping dev: No Alcohol Use?: No Immunizations Up To Date Tetanus Booster (TDap): Unknown Seasonal Allergies Seasonal Allergies: No Past Medical History Surgery/Hospitalization HX: COPD, Insulin dependent DM, CAD Surgeries: Yes Cardiac, Coronary Stent, Hysterectomy Respiratory: Yes (WEARS OXYGEN AT NIGHT) COPD Cardiac: Yes (NSTEMI, heart failure with EF 30 to 35% in July 2020) Cardiomyopathy, Chronic Edema/Swelling, Coronary Artery Disease, Heart Attack, High Cholesterol, Hypertension, Peripheral Vascular Neurological: Yes Neuropathy 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 ALCALA: CONCLUSIONS: 1. Diffuse xohg-da-igrvsmbf disease of the left coronary system without significant focal stenoses. There is a patent stent in the proximal left anterior descending that is known to be a drug-eluting stent measuring 3.0 x 24 mm and that was placed in 01/2018 in [place], [place]. The right coronary artery is chronically occluded at its ostium and is collateralized from the left coronary system. 2. Elevated left ventricular end-diastolic pressure of approximately 27 mmHg. DISCUSSION AND RECOMMENDATIONS: The cardiac catheterization findings are not significantly changed compared to the findings of 05/2019. Based on the study, it appears appropriate to continue a conservative approach. Her most recent ejection fraction on echocardiography of 07/11/[address] Willoughby was 30 to 35%. We are optimizing medical regimen and have advised close clinical followup. She has a LifeVest in place. We recommend repeat echocardiography in 10/2020 to see if ejection fraction is improved. Physical Exam Vital Signs Vital Signs - First Documented 03/16/21 22:06 O2 Flow Rate 2.00 Capillary Refill : Height, Weight, BMI Height: 5'2.00" Weight: 179lbs. 5.0oz. 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 Norm as Tested Skin: Normal Color, Warm/Dry Focused Exam Lactate Level 03/16/21 21:55: Lactic Acid Level 2.52*H Lactic Acid Level Laboratory Tests Test 03/16/21 21:55 Lactic Acid Level 2.52 MMOL/L (0.50-2.00) *H Procedures/Interventions Date of ETT Placement: Feb 01, 2018 Time of ETT Placement: 1613 Progress/Results/Core Measures Suspected Sepsis SIRS Temperature: Pulse: Respiratory Rate: Laboratory Tests 03/16/21 21:55: White Blood Count 12.0H Blood Pressure / Mean: 03/16/21 21:55: Lactic Acid Level 2.52*H Laboratory Tests 03/16/21 21:55: Creatinine 1.90H, INR Comment 1.4, Platelet Count 158, Total Bilirubin 1.7H Results/Orders Lab Results Laboratory Tests Test 03/16/21 21:55 03/16/21 22:00 Range/Units White Blood Count 12.0 H 4.3-11.0 10^3/uL Red Blood Count 3.92 3.80-5.11 10^6/uL Hemoglobin 10.3 #L 11.5-16.0 g/dL Hematocrit 35 35-52 % Mean Corpuscular Volume 89 80-99 fL Mean Corpuscular Hemoglobin 26 25-34 pg Mean Corpuscular Hemoglobin Concent 30 L 32-36 g/dL Red Cell Distribution Width 16.9 H 10.0-14.5 % Platelet Count 158 130-400 10^3/uL Mean Platelet Volume 12.5 H 9.0-12.2 fL Immature Granulocyte % (Auto) 1 % Neutrophils (%) (Auto) 83 H 42-75 % Lymphocytes (%) (Auto) 8 L 12-44 % Monocytes (%) (Auto) 9 0-12 % Eosinophils (%) (Auto) 0 0-10 % Basophils (%) (Auto) 0 0-10 % Neutrophils # (Auto) 9.9 H 1.8-7.8 X 10^3 Lymphocytes # (Auto) 0.9 L 1.0-4.0 X 10^3 Monocytes # (Auto) 1.0 0.0-1.0 X 10^3 Eosinophils # (Auto) 0.0 0.0-0.3 10^3/uL Basophils # (Auto) 0.1 0.0-0.1 10^3/uL Immature Granulocyte # (Auto) 0.1 0.0-0.1 10^3/uL Neutrophils % (Manual) 87 % Lymphocytes % (Manual) 5 % Monocytes % (Manual) 8 % Prothrombin Time 18.0 H 12.2-14.7 SEC INR Comment 1.4 0.8-1.4 Activated Partial Thromboplast Time 32 24-35 SEC Sodium Level 135 135-145 MMOL/L Potassium Level 4.6 3.6-5.0 MMOL/L Chloride Level 100 98-107 MMOL/L Carbon Dioxide Level 21 21-32 MMOL/L Anion Gap 14 5-14 MMOL/L Blood Urea Nitrogen 49 H 7-18 MG/DL Creatinine 1.90 H 0.60-1.30 MG/DL Estimat Glomerular Filtration Rate 27 BUN/Creatinine Ratio 26 Glucose Level 202 H 70-105 MG/DL Lactic Acid Level 2.52 *H 0.50-2.00 MMOL/L Calcium Level 8.4 L 8.5-10.1 MG/DL Corrected Calcium 9.1 8.5-10.1 MG/DL Magnesium Level 2.3 1.6-2.4 MG/DL Total Bilirubin 1.7 H 0.1-1.0 MG/DL Aspartate Amino Transf (AST/SGOT) 1153 H 5-34 U/L Alanine Aminotransferase (ALT/SGPT) 974 H 0-55 U/L Alkaline Phosphatase 144 H 40-136 U/L Troponin I < 0.30 <0.30 NG/ML Pro-B-Type Natriuretic Peptide 30519.0 H <75.0 PG/ML Total Protein 7.9 6.4-8.2 GM/DL Albumin 3.1 L 3.2-4.5 GM/DL Lipase 11 8-78 U/L Blood Gas Puncture Site RIGHT RADIAL Blood Gas Patient Temperature 36.0 Arterial Blood pH 7.42 7.37-7.43 Arterial Blood Partial Pressure CO2 37 35-45 MMHG Arterial Blood Partial Pressure O2 70 L 79-93 MMHG Arterial Blood HCO3 24 23-27 MMOL/L Arterial Blood Total CO2 25.1 21.0-31.0 MMOL/L Arterial Blood Oxygen Saturation 94 94-100 % Arterial Blood Base Excess -0.2 -2.5-2.5 MMOL/L [place] Test NEGATIVE Blood Gas Ventilator Setting NO Blood Gas Inspired Oxygen ROOM AIR My Orders Orders - LUCINDA WANG MD Cbc With Automated Diff (03/16/21 22:03) Magnesium (03/16/21 22:03) Chest 1 View Ap/Pa Only (03/16/21 22:03) Ekg Tracing (03/16/21 22:03) Comprehensive Metabolic Panel (03/16/21 22:03) Protime With Inr (03/16/21:) Partial Thromboplastin Time (03/16/21:) O2 (03/16/21 22:03) Monitor-Rhythm Ecg Trace Only (03/16/21 22:03) Ed Iv/Invasive Line Start (03/16/21 22:03) Lipase (03/16/21 22:03) Troponin I Fs (03/16/21 22:03) Probnp Fs (03/16/21 22:03) Blood Culture (03/16/21 22:03) Arterial Blood Gas (03/16/21 22:03) Lactic Acid Analyzer (03/16/21 22:03) Manual Differential (03/16/21 21:55) Rx-Ondansetron Po (Rx-Zofran Po) (03/16/21 23:45) Albuterol Inhaler (Albuterol) (03/16/21 23:45) Vital Signs/I&O 03/16/21 03/16/21 03/16/21 03/16/21 21:48 21:48 22:06 23:00 Temp 36.0 Pulse 86 86 Resp 20 20 B/P (MAP) 170/81 (110) 148/83 Pulse Ox 94 99 96 O2 Delivery Room Air Room Air Room Air Room Air O2 Flow Rate 2.00 Capillary Refill : Progress Note #1: Progress Note Advised that her oxygen saturation is 95 to 96% on room air. We will recheck labs and x-ray to see if there is been any significant change from last weekend. Will order an ABG to document how much oxygen she is actually getting into her bloodstream since she has COPD. Obtain electrocardiogram and cardiac enzymes to look for signs of acute [place]. Progress Note #2: Progress Note Chest x-ray does not show any acute pulmonary effusion or any significant change from previous x-ray. Her electrocardiogram appears stable as well. She has mild elevation of her hemoglobin compared to the fourth which might be secondary to some hemoconcentration. She had negative troponin. Her ABG was not showing any significant acidosis or hypercapnia. She had mild elevation of her lactic acid to 2.5 to go along with some mild dehydration secondary to her diuresis. She had continued elevation of her proBNP to over 33,000 tonight. This was up from her 30,000 on March 10. Her LFTs are elevated tonight as well. This might be secondary to the heart failure and recent influenza and Covid i nfection. Patient is asking to go home and stated that she feels better. She was reassured that her chest pain from this afternoon was not showing any elevation in her troponin tonight. I did discuss the case with Dr. Bueno the on-call provider for [facility] and she recommended having outpatient lab for a recheck of the liver enzymes on Thursday or Thursday. I will send a outpatient order with the patient so that she could have that done and have the results sent to Dr. Menon. Counseled on follow-up and return precautions. Advised to hold her Lipitor until she could have her blood work rechecked and see that her liver enzymes are improving. Follow-up with her cardiology providers as well. Refill of her albuterol inhaler was given. Zofran ODT for his nausea. ECG Initial ECG Impression Date: Mar 16, 2021 Initial ECG Impression Time: 22: Initial ECG Rate: 87 Initial ECG Rhythm: Normal Sinus Initial ECG Comparisson: Unchanged Comment Sinus rhythm with a heart rate of 87 bpm. NV interval 174 ms. LVH with secondary repolarization changes. Anterior Q waves possibly due to LVH in leads V1 and V2. QT interval 404 ms with a QTc interval [address] elevation. Appears similar to prior tracings in system. Diagnostic Imaging Diagonstic Imaging: Xray Plain Films/CT/US/NM/MRI: chest Comments [email or web address] [place], [place] NAME: [facility] REC#: [id number] PT STATUS: REG ER : 1955 PHYSICIAN: LUCINDA WANG MD ADMIT DATE: 03/16/21/ER FS Signed Date of Exam:03/16/21 CHEST 1 VIEW AP/PA ONLY INDICATION: Cough, Covid. COMPARISON: 01/23/2021. EXAMINATION: Single view of the chest. FINDINGS: Stable cardiac enlargement. There is no pulmonary infiltrate. Lungs are clear. There is no pneumothorax but osseous structures are normal. IMPRESSION: Stable cardiac enlargement without pulmonary edema or acute infiltrate. Dictated by: Dictated on workstation # [id number] Dict: 03/16/212243 Trans: 03/16/212251 [facility] [id number] Interpreted by: ROSARIO ROSA Electronically signed by: ROSARIO ROSA 03/16/212251 Reviewed: Reviewed by Me Departure Impression Primary Impression: Shortness of breath Additional Impressions: Lower respiratory tract infection due to COVID-19 virus Influenza A Atypical chest pain Elevated liver function tests Disposition: HOME, SELF-CARE Condition: Stable Departure-Patient Inst. Decision time for Depature: 23:31 Referrals: FORTINO MENON MD (PCP/Family) Primary Care Physician Patient Instructions: COVID-19 ED, Flu, Adult ED, Liver Function Test, Shortness of Breath, Adult ED Add. Discharge Instructions: Hold your atorvastatin or Lipitor until your liver enzymes start coming down. Return for outpatient lab Thursday or Thursday to have your blood work redrawn to look at your liver enzymes. Use the albuterol inhaler with spacer to help with shortness of breath and cough. Use the nausea medicine to help keep your stomach settled. Follow-up with the clinic for continued concerns Scripts Ondansetron (Ondansetron Odt) 4 Mg Tab.rapdis 4 MG PO Q6H PRN for NAUSEA/VOMITING for 5 Days, #20 TAB 0 Refills Prov: LUCINDA WANG MD 03/16/21 LUCINDA WANG MD Mar 16, 2021 22:13
[2021-03-16 22:14] LABS: ABG BASE EXCESS -0.2 MMOL/L (-2.5-2.5); ABG OXYGEN SATURATION 94 % (94-100); ABG PCO2 37 MMHG (35-45); ABG PH 7.42 (7.37-7.43); ABG PO2 70 MMHG (79-93); ABG TCO2 25.1 MMOL/L (21.0-31.0); ALLENS TEST NEGATIVE; INSPIRED O2 ROOM AIR; VENTILATOR NO
[2021-03-16 22:23] LABS: INR 1.4 (0.8-1.4)
[2021-03-16 22:32] LABS: ALBUMIN 3.1 GM/DL (3.2-4.5); BILIRUBIN,TOTAL 1.7 MG/DL (0.1-1.0); CALCIUM 8.4 MG/DL (8.5-10.1); CREATININE SERUM 1.9 MG/DL (0.60-1.30); MAGNESIUM 2.3 MG/DL (1.6-2.4); POTASSIUM 4.6 MMOL/L (3.6-5.0); TOTAL PROTEIN 7.9 GM/DL (6.4-8.2)
[2021-03-16 22:44] LABS: LYMPHOCYTES % (MANUAL) 5 %; MONOCYTES % (MANUAL) 8 %; NEUTROPHILS % (MANUAL) 87 %
--- NOTE | 2021-03-16 22:49 | Diagnostic Imaging Report ---
INDICATION: Cough, Covid. COMPARISON: 01/23/2021. EXAMINATION: Single view of the chest. FINDINGS: Stable cardiac enlargement. There is no pulmonary infiltrate. Lungs are clear. There is no pneumothorax but osseous structures are normal. IMPRESSION: Stable cardiac enlargement without pulmonary edema or acute infiltrate. Dictated by: Dictated on workstation # [id number]
[2021-03-16] MEDS ORDERED: ONDA4TAB11 PO (23:33)
[2021-03-16] MEDS ORDERED: RT-ALBUTEROL HFA 8.5 GM INHALER IH PRN (23:45)
[2021-03-16] MEDS ORDERED: RX-ONDANSETRON 4 MG ODT (ZOFRAN) PPK #4 PO PRN (23:45)
== END 2021-03-16 23:45 | disposition home or self-care (01) ==
LOC: EDUNIT# 21:48 → ER FS 21:53
DX: U07.1 COVID-19 (principal); J22 Unspecified acute lower respiratory infection; J10.1 Influenza due to other identified influenza virus with other respiratory manifestations; R07.89 Other chest pain; R79.89 Other specified abnormal findings of blood chemistry; J44.9 Chronic obstructive pulmonary disease, unspecified; I25.10 Atherosclerotic heart disease of native coronary artery without angina pectoris; I25.2 Old myocardial infarction; I10 Essential (primary) hypertension; E11.51 Type 2 diabetes mellitus with diabetic peripheral angiopathy without gangrene; E11.40 Type 2 diabetes mellitus with diabetic neuropathy, unspecified; E03.9 Hypothyroidism, unspecified; Z95.5 Presence of coronary angioplasty implant and graft; Z99.81 Dependence on supplemental oxygen; Z79.4 Long term (current) use of insulin; Z79.899 Other long term (current) drug therapy; Z79.890 Hormone replacement therapy
CPT/HCPCS: 36415; 71045; 80053; 82805; 83605; 83690; 83735; 83880; 84484; 85007; 85027; 85610; 85730; 87040; 93005; 93041

== ENCOUNTER 2021-05-15 15:06 | Inpatient (IN) | payer MEDICARE, OTHER ==
[~2021-05-15] VITALS: Ht 157.5 cm; Wt 107.0 kg
[2021-05-15 15:33] LABS: INR 1.2 (0.8-1.4); PROTHROMBIN TIME PATIENT 15.6 SEC (12.2-14.7)
--- NOTE | 2021-05-15 15:33 | ED General ---
General Chief Complaint: General Problems/Pain Stated Complaint: SWELLING Nursing Triage Note: PT TO ROOM FS06 [facility]IA [facility] WITH C/O CHRONIC SWELLING TO ABDOMEN. PT REPORTS HX OF KIDNEY DISEASE. Source of Information: Patient Exam Limitations: No Limitations History of Present Illness Date Seen by Provider: May 15, 2021 Time Seen by Provider: 15:06 Initial Comments Here by EMS with complaint of increased swelling to the abdomen, breast and left arm. She did have a fall yesterday. Patient is on Xarelto and furosemide. Does have history of chronic renal disease but is not on dialysis. Does have history of cellulitis to lower extremities and does have edema into the right foot and erythema and weeping to both legs. She is short of breath. She does have oxygen at home if needed and currently requiring 2 L. Denies nausea, vomiting but does report diarrhea. She has short of breath. Denies fever. She was apparently more confused earlier but is better after oxygen. She has had Covid twice as well as influenza and reports that she has had influenza vaccination. She has not had Covid vaccination. Timing/Duration: 2-3 Days Severity: Moderate Associated Systoms: No Chest Pain, No Cough, No Fever/Chills, No Nausea/Vomiting; Shortness of Air, Weakness Allergies and Home Medications Allergies Uncoded Allergies: Beta bernard (Adverse Reaction, Unknown, 2.4 second pause (07/2018), 05/16/19) Patient Home Medication List Home Medication List Reviewed: Yes Albuterol Sulfate (Proair Hfa) 1 Puff Puff, 2 PUFF IH Q4H PRN for SHORTNESS OF BREATH, (Reported) Entered as Reported by: COLBY SCOTT on 01/23/21 1409 Atorvastatin Calcium (Atorvastatin Calcium) 40 Mg Tablet, 40 MG PO HS, (Reported) Entered as Reported by: SIXTO CARVALHO on 07/28/18 1105 Furosemide (Furosemide) 20 Mg Tablet, 20 MG PO DAILY, (Reported) Entered as Reported by: COLBY SCOTT on 01/23/21 1409 Gabapentin (Gabapentin) 600 Mg Tablet, 600 MG PO TID, (Reported) Entered as Reported by: SEVERO TESFAYE on 09/04/20 1326 Hydrocodone/Acetaminophen (Hydrocodone-Acetamin 5-325 mg) 1 Each Tablet, 1-2 TAB PO HS PRN for PAIN-MODERATE (5-7), (Reported) Entered as Reported by: COLBY SCOTT on 01/23/21 140 Insulin Aspart (Novolog Flexpen) 300 Units/3 Ml Solution, UNITS SQ TID, (Reported) Entered as Reported by: COLBY SCOTT on 01/23/21 140 Insulin Glargine,Hum.rec.anlog (Lantus Solostar) 100 Unit/1 Ml Insuln.pen, 30 UNITS SQ BID, (Reported) Entered as Reported by: COLBY SCOTT on 01/23/21 140 Isosorbide Mononitrate (Isosorbide Mononitrate ER) 60 Mg Tab, 60 MG PO DAILY, (Reported) Entered as Reported by: COLBY SCOTT on 01/23/21 140 Levothyroxine Sodium (Levothyroxine Sodium) 88 Mcg Tablet, 88 MCG PO DAILY, (Reported) Entered as Reported by: MARY SAEED on 02/01/18 0923 Lisinopril/Hydrochlorothiazide (Zestoretic 20-12.5 mg Tablet) 1 Each Tablet, 1 EACH PO DAILY, (Reported) Entered as Reported by: COLBY SCOTT on 01/23/21 1412 Nitroglycerin (Nitroglycerin) 0.4 Mg Tab.subl, 0.4 MG SL UD PRN for CHEST PAIN, (Reported) Entered as Reported by: SIXTO CARVALHO on 07/28/18 1105 Ondansetron (Ondansetron Odt) 4 Mg Tab.rapdis, 4 MG PO Q6H PRN for NAUSEA/VOMITING Prescribed by: LUCINDA WANG on 03/16/21 2333 Oseltamivir Phosphate (Tamiflu) 30 Mg Capsule, 30 MG PO BID Prescribed by: VIET WESLEY on 03/12/21 1312 Rivaroxaban (Xarelto) 20 Mg Tablet, 20 MG PO DAILY, (Reported) Entered as Reported by: COLBY SCOTT on 01/23/21 1409 Sertraline HCl (Sertraline HCl) 50 Mg Tablet, 50 MG PO DAILY, (Reported) Entered as Reported by: COLBY SCOTT on 03/11/21 1229 Review of Systems Review of Systems Constitutional: see HPI; No chills, No fever; weakness EENTM: No nose congestion, No throat pain Respiratory: dyspnea on exertion, short of breath Cardiovascular: No chest pain; edema Gastrointestinal: diarrhea; No nausea, No vomiting Genitourinary: no symptoms reported Musculoskeletal: No back pain, No joint pain Skin: change in color (Bilateral lower extremities), lesions (Right great toe and right lower anterior leg) Psychiatric/Neurological: Denies Headache; Weakness Hematologic/Lymphatic: No Symptoms Reported All Other Systems Reviewed Negative Unless Noted: Yes Past Wtcmvhk-Lyjcml-Jflgyb Hx Patient Social History Tobacco Use?: Yes Tobacco type used: Cigarettes Smoking Status: Current Everyday Smoker Smokeless Tobacco Frequency: Never a User Use of E-Cig and/or Vaping dev: No Use of E-Cig and/or Vaping Manish: Never a User Substance use?: No Alcohol Use?: No Pt feels they are or have been: No Immunizations Up To Date Tetanus Booster (TDap): Unknown Seasonal Allergies Seasonal Allergies: No Past Medical History Surgery/Hospitalization HX: COPD, Insulin dependent DM, CAD Surgeries: Yes Cardiac, Coronary Stent, Hysterectomy Respiratory: Yes (WEARS OXYGEN AT NIGHT) COPD Cardiac: Yes (NSTEMI, heart failure with EF 30 to 35% in July 2020) Cardiomyopathy, Chronic Edema/Swelling, Coronary Artery Disease, Heart Attack, High Cholesterol, Hypertension, Peripheral Vascular Neurological: Yes 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, 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 ALCALA: CONCLUSIONS: 1. Diffuse mory-it-qdrdjjbm disease of the left coronary system without significant focal stenoses. There is a patent stent in the proximal left anterior descending that is known to be a drug-eluting stent measuring 3.0 x 24 mm and that was placed in 01/2018 in [place], [place]. The right coronary artery is chronically occluded at its ostium and is collateralized from the left coronary system. 2. Elevated left ventricular end-diastolic pressure of approximately 27 mmHg. DISCUSSION AND RECOMMENDATIONS: The cardiac catheterization findings are not significantly changed compared to the findings of 05/2019. Based on the study, it appears appropriate to continue a conservative approach. Her most recent ejection fraction on echocardiography of 07/11/[address] Willoughby was 30 to 35%. We are optimizing medical regimen and have advised close clinical followup. She has a LifeVest in place. We recommend repeat echocardiography in 10/2020 to see if ejection fraction is improved. Physical Exam-Suspected Sepsis Physical Exam Vital Signs Vital Signs - First Documented Capillary Refill : Less Than 3 Seconds Blood Pressure Mean: 128 Height, Weight, BMI Height: 5'2.00" Weight: 179lbs. 5.0oz. 81.667580ny; 36.00 BMI Method:Stated General Appearance: No Apparent Distress, WD/WN HEENT: PERRL/EOMI, Other (Mucous membranes dry) Neck: Non Tender, Supple Respiratory: Accessory Muscle Use, Crackles, Wheezing Cardiovascular: No Murmur, Tachycardia Gastrointestinal: Soft, Distended, Other Back: Normal Inspection, No CVA Tenderness, No Vertebral Tenderness Extremity: Non Tender, Pedal Edema (3+ bilateral lower extremities pitting) Neurologic/Psychiatric: Alert, Oriented x3 Skin: warm/dry, other (Redness to bilateral lower extremities with pitting pedal edema. 1 x 2 cm lesion to the medial aspect of the right great toe. 1 x 1 cm open and weeping blister to the anterior distal right lower extremity just above the ankle with clear fluid.) Focused Exam Lactate Level 05/15/21 15:07: Lactic Acid Level 1.06 Lactic Acid Level Laboratory Tests Test 05/15/21 15:07 Lactic Acid Level 1.06 MMOL/L (0.50-2.00) Procedures/Interventions Date of ETT Placement: Feb 01, 2018 Time of ETT Placement: 1613 Progress/Results/Core Measures Suspected Sepsis SIRS Temperature: Pulse: 96 Respiratory Rate: 22 Laboratory Tests 05/15/21 15:07: White Blood Count 8.0 Blood Pressure 182 /101 Mean: 128 05/15/21 15:07: Lactic Acid Level 1.06 Laboratory Tests 05/15/21 15:07: Creatinine 1.32H, INR Comment 1.2, Platelet Count 150, Total Bilirubin 0.5 Results/Orders Lab Results Laboratory Tests Test 05/15/21 15:07 Range/Units White Blood Count 8.0 4.3-11.0 10^3/uL Red Blood Count 3.46 L 3.80-5.11 10^6/uL Hemoglobin 9.1 L 11.5-16.0 g/dL Hematocrit 31 L 35-52 % Mean Corpuscular Volume 90 80-99 fL Mean Corpuscular Hemoglobin 26 25-34 pg Mean Corpuscular Hemoglobin Concent 29 L 32-36 g/dL Red Cell Distribution Width 17.5 H 10.0-14.5 % Platelet Count 150 130-400 10^3/uL Mean Platelet Volume 11.6 9.0-12.2 fL Immature Granulocyte % (Auto) 1 % Neutrophils (%) (Auto) 83 H 42-75 % Lymphocytes (%) (Auto) 8 L 12-44 % Monocytes (%) (Auto) 6 0-12 % Eosinophils (%) (Auto) 1 0-10 % Basophils (%) (Auto) 1 0-10 % Neutrophils # (Auto) 6.6 1.8-7.8 10^3/uL Lymphocytes # (Auto) 0.6 L 1.0-4.0 10^3/uL Monocytes # (Auto) 0.5 0.0-1.0 10^3/uL Eosinophils # (Auto) 0.1 0.0-0.3 10^3/uL Basophils # (Auto) 0.1 0.0-0.1 10^3/uL Immature Granulocyte # (Auto) 0.1 0.0-0.1 10^3/uL Neutrophils % (Manual) 81 % Lymphocytes % (Manual) 5 % Monocytes % (Manual) 11 % Eosinophils % (Manual) 1 % Basophils % (Manual) 2 % Band Neutrophils 0 % Prothrombin Time 15.6 H 12.2-14.7 SEC INR Comment 1.2 0.8-1.4 Activated Partial Thromboplast Time 27 24-35 SEC Sodium Level 140 135-145 MMOL/L Potassium Level 3.5 L 3.6-5.0 MMOL/L Chloride Level 109 H 98-107 MMOL/L Carbon Dioxide Level 19 L 21-32 MMOL/L Anion Gap 12 5-14 MMOL/L Blood Urea Nitrogen 22 H 7-18 MG/DL Creatinine 1.32 H 0.60-1.30 MG/DL Estimat Glomerular Filtration Rate 45 BUN/Creatinine Ratio 17 Glucose Level 215 H 70-105 MG/DL Lactic Acid Level 1.06 0.50-2.00 MMOL/L Calcium Level 7.2 L 8.5-10.1 MG/DL Corrected Calcium 8.2 L 8.5-10.1 MG/DL Total Bilirubin 0.5 0.1-1.0 MG/DL Aspartate Amino Transf (AST/SGOT) 20 5-34 U/L Alanine Aminotransferase (ALT/SGPT) 7 0-55 U/L Alkaline Phosphatase 80 40-136 U/L Troponin I < 0.30 <0.30 NG/ML Pro-B-Type Natriuretic Peptide 33083.0 H <75.0 PG/ML Total Protein 6.7 6.4-8.2 GM/DL Albumin 2.7 L 3.2-4.5 GM/DL My Orders Orders - IZAIAH RODRÍGUEZ MD Cbc With Automated Diff (05/15/21 15:17) Comprehensive Metabolic Panel (05/15/21 15:17) Blood Culture (05/15/21 15:17) Sputum Culture (05/15/21 15:17) Urinalysis (05/15/21 15:17) Urine Culture (05/15/21 15:17) Protime With Inr (05/15/21 15:17) Partial Thromboplastin Time (05/15/21 15:17) Chest 1 View Ap/Pa Only (05/15/21 15:17) Ed Iv/Invasive Line Start (05/15/21 15:17) Ekg Tracing (05/15/21 15:17) Troponin I Daya (05/15/21 15:17) Vital Signs Adult Sepsis Patie Q15M (05/15/21 15:17) O2 (05/15/21 15:17) Remove Rings In Anticipation O (05/15/21 15:17) Lactic Acid Analyzer (05/15/21 15:17) Probnp Fs (05/15/21 15:17) Ct Head Wo (05/15/21 15:17) Manual Differential (05/15/21 15:07) Wound Culture (05/15/21 16:30) Furosemide Injection (Lasix Injection) (05/15/21 16:42) Vital Signs/I&O 05/15/21 05/15/21 15:06 15:06 Temp 36.2 Pulse 96 Resp 22 B/P (MAP) 182/101 (128) Pulse Ox 94 94 O2 Delivery Room Air Nasal Cannula O2 Flow Rate 2.00 2.00 Capillary Refill : Less Than 3 Seconds Blood Pressure Mean: 128 Progress Note : Progress Note Seen and evaluated on arrival by EMS. IV by EMS. Labs, EKG, chest x-ray and CT head ordered. Sepsis order set initiated due to concerns of cellulitis especially with the right lower extremity. She does have appearance of volume overload with pedal pitting edema and possible ascites. She does have some crackles in the lungs as well. Chart review shows history of chronic renal failure with creatinine 1.8-2.1 range. Pro-BNP ranges have been been in the low 3000's. Patient is more comfortable on oxygen at 2 L currently. Wound culture obtained from great toe on the right foot. Wound cleaned and dressed. Monitor patient. 164: Findings do not suggest sepsis but she does have significant heart failure. Lasix 40 mg IV has been ordered. I did discuss the case with Dr. Bueno and she accepts patient for admission, inpatient status and she will write orders. She requested consult Dr. Willoughby which will be done. 1649: I did discuss the case with Dr. Willoughby and he agrees with the Lasix and request that twice daily at 40 mg. All findings and concerns were discussed with the patient who agrees with admission and plan. ECG Initial ECG Impression Date: May 15, 2021 Initial ECG Impression Time: 15:18 Initial ECG Rate: 95 Initial ECG Rhythm: Normal Sinus Comment Sinus rhythm with left posterior fascicular block, right axis deviation and low voltage in precordial leads noted. [place] change from previous of 03/16/2021. No evidence of ST elevation [place]. Interpreted by me. Diagnostic Imaging Diagonstic Imaging: CT Plain Films/CT/US/NM/MRI: head Comments [facility] [place], [place] NAME: BRIGID HILL Jeronimo [facility] REC#: [id number] PT STATUS: REG ER : 1955 PHYSICIAN: IZAIAH RODRÍGUEZ MD ADMIT DATE: 05/15/21/ER FS Draft Date of Exam:05/15/21 CT HEAD WO INDICATION: Fall, on anticoagulants, AMS. TECHNIQUE: Routine non contrast-enhanced axial images were obtained from the skull base to the vertex. Auto Exposure Controls were utilized during the CT exam to meet ALARA standards for radiation dose reduction COMPARISON: 03/10/2021. FINDINGS: The ventricles and cortical sulci are diffusely prominent, compatible with age-related volume loss. There are confluent areas of abnormal, low attenuation in the periventricular white matter. This is consistent with chronic small vessel ischemic changes. There is no midline shift or mass-effect. No acute intra-axial hemorrhage is seen. There are no abnormal areas of increased or decreased density to suggest acute hemorrhage or edema. No extra-axial masses or collections are present. The bony calvarium is intact. The visualized paranasal sinuses show mucosal thickening with air-fluid level in the left maxillary sinus. The mastoid air cells are clear. IMPRESSION: 1. No acute intracranial abnormality. No CT evidence of mass, acute infarct or intracranial hemorrhage. 2. Chronic small vessel ischemic changes in the deep white matter. 3. Left maxillary sinus disease. Please correlate for acute sinusitis. Dictated on workstation # [id number] Dict: 05/15/21 1540 Trans: 05/15/21 1544 [id number] Interpreted by: CEE CROWELL MD Electronically signed by: Reviewed: Reviewed by Me Diagonstic Imaging: Xray Plain Films/CT/US/NM/MRI: chest Comments [facility] [place] [place] NAME: BRIGID HILL [facility] REC#: [id number] PT STATUS: REG ER : 1955 PHYSICIAN: IZAIAH RODRÍGUEZ MD ADMIT DATE: 05/15/21/ER FS Draft Date of Exam:05/15/21 CHEST 1 VIEW AP/PA ONLY EXAMINATION: Chest 1 view HISTORY: weakness, soa COMPARISON: 03/16/2021. FINDINGS: Stable enlargement of the cardiac silhouette. Trace left pleural effusion with adjacent atelectasis. Mild interstitial opacities within the lower lungs. No pneumothorax. The osseous structures are intact. IMPRESSION: 1. Cardiomegaly with mild lower lung interstitial opacities. Findings can be seen with pulmonary edema, atelectasis, or atypical infection. 2. Small left pleural effusion with adjacent atelectasis. Dictated on workstation # [id number] Dict: 05/15/21 1540 Trans: 05/15/21 1545 [id number] Interpreted by: ABDIAZIZ PEREYRA DO Electronically signed by: Reviewed: Reviewed by Me Departure Communication (Admissions) Time/Spoke to Admitting Phy: 16:45 Time/Spoke to Consulting Phy: 16:50 Impression Primary Impression: Acute on chronic systolic heart failure Disposition: 30 STILL A PATIENT Condition: Stable Admissions Decision to Admit Reason: Admit from ER (General) Decision to Admit/Date: May 15, 2021 Time/Decision to Admit Time: 16:45 Departure-Patient Inst. Referrals: FORTINO LÓPEZ MD (PCP/Family) Primary Care Physician IZAIAH RODRÍGUEZ MD May 15, 2021 15:33
[2021-05-15 15:38] LABS: BASOPHILS # (AUTO) 0.1 10^3/uL (0.0-0.1); BASOPHILS % (AUTO) 1 % (0-10); EOSINOPHILS # (AUTO) 0.1 10^3/uL (0.0-0.3); EOSINOPHILS % (AUTO) 1 % (0-10); HEMATOCRIT 31 % (35-52); HEMOGLOBIN 9.1 g/dL (11.5-16.0); LYMPHOCYTES # (AUTO) 0.6 10^3/uL (1.0-4.0); LYMPHOCYTES % (AUTO) 8 % (12-44); MEAN CORPUSCULAR HEMOGLOBIN 26 pg (25-34); MEAN CORPUSCULAR HGB CONC 29 g/dL (32-36); MEAN CORPUSCULAR VOLUME 90 fL (80-99); MEAN PLATELET VOLUME 11.6 fL (9.0-12.2); MONOCYTES # (AUTO) 0.5 10^3/uL (0.0-1.0); MONOCYTES % (AUTO) 6 % (0-12); NEUTROPHILS # (AUTO) 6.6 10^3/uL (1.8-7.8); NEUTROPHILS % (AUTO) 83 % (42-75); PLATELET COUNT 150 10^3/uL (130-400)
--- NOTE | 2021-05-15 15:45 | Diagnostic Imaging Report ---
EXAMINATION: Chest 1 view HISTORY: weakness, soa COMPARISON: 03/16/2021. FINDINGS: Stable enlargement of the cardiac silhouette. Trace left pleural effusion with adjacent atelectasis. Mild interstitial opacities within the lower lungs. No pneumothorax. The osseous structures are intact. IMPRESSION: 1. Cardiomegaly with mild lower lung interstitial opacities. Findings can be seen with pulmonary edema, atelectasis, or atypical infection. 2. Small left pleural effusion with adjacent atelectasis. Dictated by: Dictated on workstation # [id number]
--- NOTE | 2021-05-15 15:45 | Diagnostic Imaging Report ---
INDICATION: Fall, on anticoagulants, AMS. TECHNIQUE: Routine non contrast-enhanced axial images were obtained from the skull base to the vertex. Auto Exposure Controls were utilized during the CT exam to meet ALARA standards for radiation dose reduction COMPARISON: 03/10/2021. FINDINGS: The ventricles and cortical sulci are diffusely prominent, compatible with age-related volume loss. There are confluent areas of abnormal, low attenuation in the periventricular white matter. This is consistent with chronic small vessel ischemic changes. There is no midline shift or mass-effect. No acute intra-axial hemorrhage is seen. There are no abnormal areas of increased or decreased density to suggest acute hemorrhage or edema. No extra-axial masses or collections are present. The bony calvarium is intact. The visualized paranasal sinuses show mucosal thickening with air-fluid level in the left maxillary sinus. The mastoid air cells are clear. IMPRESSION: 1. No acute intracranial abnormality. No CT evidence of mass, acute infarct or intracranial hemorrhage. 2. Chronic small vessel ischemic changes in the deep white matter. 3. Left maxillary sinus disease. Please correlate for acute sinusitis. Dictated by: Dictated on workstation # [id number]
[2021-05-15 15:53] LABS: ALANINE AMINOTRANSFERASE 7 U/L (0-55); ALBUMIN 2.7 GM/DL (3.2-4.5); ALKALINE PHOSPHATASE 80 U/L (40-136); BILIRUBIN,TOTAL 0.5 MG/DL (0.1-1.0); BUN/CREATININE RATIO 17; CALCIUM 7.2 MG/DL (8.5-10.1); CARBON DIOXIDE 19 MMOL/L (21-32); CHLORIDE 109 MMOL/L (98-107); CREATININE SERUM 1.32 MG/DL (0.60-1.30); GFR ESTIMATED 45; GLUCOSE 215 MG/DL (70-105); POTASSIUM 3.5 MMOL/L (3.6-5.0); SODIUM 140 MMOL/L (135-145); TOTAL PROTEIN 6.7 GM/DL (6.4-8.2)
[2021-05-15 15:59] LABS: BAND NEUTROPHILS 0 %; BASOPHILS % (MANUAL) 2 %; EOSINOPHILS % (MANUAL) 1 %; LYMPHOCYTES % (MANUAL) 5 %; MONOCYTES % (MANUAL) 11 %; NEUTROPHILS % (MANUAL) 81 %
[2021-05-15] MEDS ORDERED: FUROSEMIDE 40 MG/4 ML INJ (LASIX) IV STA (16:42)
[2021-05-15] MEDS ORDERED: ONDANSETRON 4 MG (ZOFRAN) ORAL DISSOLVE TAB PO PRN (18:15)
[2021-05-15] MEDS ORDERED: ANTACID SUSP 30 ML UDC (MYLANTA) PO PRN (18:15)
[2021-05-15] MEDS ORDERED: diphenhydrAMINE 25 MG TAB (BENADRYL) PO PRN (18:15)
[2021-05-15] MEDS ORDERED: ONDANSETRON 4 MG/2 ML (SDV) Z0FRAN IV PRN (18:15)
[2021-05-15] MEDS ORDERED: BISACODYL 10 MG SUPP (DULCOLAX) PR PRN (18:15)
[2021-05-15] MEDS ORDERED: ACETAMINOPHEN 325 MG TABLET PO PRN (18:15)
[2021-05-15] MEDS ORDERED: MELATONIN 3 MG TABLET PO PRN (18:15)
[2021-05-15] MEDS ORDERED: morphine INJ 4 MG/ML 1 ML (VIAL/SYRINGE) IV PRN (18:15)
[2021-05-15] MEDS ORDERED: polyethylene glycoL POWDER 17 GM (MIRALAX) PACK PO PRN (18:15)
[2021-05-15] MEDS ORDERED: diphenhydrAMINE 50 MG/ML INJ (BENADRYL) IVP PRN (18:15)
[2021-05-15 18:33] VITALS: BP 175/104
[2021-05-15 20:00] VITALS: BP 171/94
[2021-05-15] MEDS: DOCUSATE SODIUM 100 MG (COLACE) CAP PO SCH (21:04)
[2021-05-15] MEDS: lisINopril 20 MG (PRINIVIL) TABLET PO SCH (21:11)
[2021-05-15] MEDS: ISOSORBIDE MONONITRATE 60 MG (IMDUR) TAB PO SCH (21:11)
[2021-05-15] MEDS: inSUlin ASPART (NovoLOG) 1 UNIT/0.01 ML (CHARGE PER UNIT) SC SCH (21:11)
[2021-05-15 23:48] VITALS: BP 171/94
[2021-05-15 23:53] VITALS: BP 138/65
[2021-05-16] MEDS ORDERED: RT-ALBUTEROL SULF 2.5 MG/3 ML PRE-MIX VIAL INH PRN (00:15)
[2021-05-16 04:07] VITALS: BP 144/67
[2021-05-16 05:46] LABS: BASOPHILS % (AUTO) 1 % (0-10); EOSINOPHILS # (AUTO) 0.1 10^3/uL (0.0-0.3); EOSINOPHILS % (AUTO) 1 % (0-10); HEMATOCRIT 37 % (35-52); HEMOGLOBIN 10.6 g/dL (11.5-16.0); LYMPHOCYTES # (AUTO) 0.6 10^3/uL (1.0-4.0); LYMPHOCYTES % (AUTO) 8 % (12-44); MEAN CORPUSCULAR HEMOGLOBIN 26 pg (25-34); MEAN CORPUSCULAR HGB CONC 29 g/dL (32-36); MEAN CORPUSCULAR VOLUME 91 fL (80-99); MEAN PLATELET VOLUME 10.4 fL (9.0-12.2); MONOCYTES # (AUTO) 0.6 10^3/uL (0.0-1.0); MONOCYTES % (AUTO) 7 % (0-12); NEUTROPHILS # (AUTO) 6.7 10^3/uL (1.8-7.8); NEUTROPHILS % (AUTO) 83 % (42-75); PLATELET COUNT 156 10^3/uL (130-400); WHITE BLOOD COUNT 8.1 10^3/uL (4.3-11.0)
[2021-05-16 06:00] LABS: ALBUMIN 2.9 GM/DL (3.2-4.5); POTASSIUM 3.8 MMOL/L (3.6-5.0)
[2021-05-16 06:01] LABS: CALCIUM 8.6 MG/DL (8.5-10.1)
[2021-05-16 06:02] LABS: TOTAL PROTEIN 7.2 GM/DL (6.4-8.2)
[2021-05-16 06:04] LABS: BILIRUBIN,TOTAL 0.6 MG/DL (0.1-1.0)
[2021-05-16 06:06] LABS: CREATININE SERUM 1.62 MG/DL (0.60-1.30)
[2021-05-16 06:09] LABS: MAGNESIUM 1.9 MG/DL (1.6-2.4)
[2021-05-16] MEDS: inSUlin ASPART (NovoLOG) 1 UNIT/0.01 ML (CHARGE PER UNIT) SC SCH ×5 (06:12→20:52)
[2021-05-16] MEDS: FUROSEMIDE 40 MG/4 ML INJ (LASIX) IVP SCH ×2 (06:28→18:03)
[2021-05-16] MEDS: RT-ALBUTEROL SULF 2.5 MG/3 ML PRE-MIX VIAL INH SCH ×4 (07:49→19:53)
--- NOTE | 2021-05-16 07:54 | History & Physical-Hospitalist ---
History of Present Illness HPI/Chief Complaint Chief Complaint: Altered mental status HPI: This is a 65yoWF who presented to [facility] with Altered Mental Status a nd Anasarca. She was found to have Heart Failure with an elevated BNP prompting consult with Dr. Willoughby. IV Lasix continues and that has helped her. I did order an ABG due to the altered mental status and CO2 Narcosis so will monitor that. Cardiology says she can go home. She in noncompliant with even getting Echo and Lifevest Maintenance. 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 Gram negative rods on blood culture so we will need to follow-up on that and will place her on empiric Cefepime and obtain a UA as the source. Source: patient Exam Limitations: clinical condition Date Seen 05/16/21 Time Seen by a Provider: 10:00 Attending Physician Brenda Diaz DO PCP Self,[facility] IN[employer] Referring Physician Date of Admission May 15, 2021 at 18:07 Home Medications & Allergies Home Medications Reviewed patient Home Medication Reconciliation performed by pharmacy medication reconciliations radiography technician and/or nursing. Patients Allergies have been reviewed. Allergies Allergies Uncoded Allergies Beta bernard ( Adverse Reaction, Unknown, 2.4 second pause (07/2018), 05/16/19) Past Qganxwb-Xqlbjt-Ddomba Hx Patient Social History Marrital Status: single Employed/Student: unemployed Tobacco Use?: Yes Tobacco type used: Cigarettes Smoking Status: Current Everyday Smoker Smokeless Tobacco Frequency: Never a User Use of E-Cig and/or Vaping dev: No Use of E-Cig and/or Vaping Manish: Never a User Substance use?: No Alcohol Use?: No Pt feels they are or have been: No Immunizations Up To Date Date of Influenza Vaccine: Dec 07, 2020 Tetanus Booster (TDap): Unknown Date of Pneumonia Vaccine: Mar 09, 2016 Seasonal Allergies Seasonal Allergies: No Current Status status: No status: No Advance Directives: No Communicates: Verbally Primary Language: Indonesian Preferred Spoken Language: Indonesian Is interpretation needed?: No Sensory deficits: Vision impairment Implanted or Applied Medical D: Stents Past Medical History Surgeries: Cardiac, Coronary Stent, Hysterectomy COPD Cardiomyopathy, Chronic Edema/Swelling, Coronary Artery Disease, Heart Attack, High Cholesterol, Hypertension, Peripheral Vascular 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 ALCALA: CONCLUSIONS: 1. Diffuse idnj-lj-cxpqdjat disease of the left coronary system without significant focal stenoses. There is a patent stent in the proximal left anterior descending that is known to be a drug-eluting stent measuring 3.0 x 24 mm and that was placed in 01/2018 in [place], [place]. The right coronary artery is chronically occluded at its ostium and is collateralized from the left coronary system. 2. Elevated left ventricular end-diastolic pressure of approximately 27 mmHg. DISCUSSION AND RECOMMENDATIONS: The cardiac catheterization findings are not significantly changed compared to the findings of 05/2019. Based on the study, it appears appropriate to continue a conservative approach. Her most recent ejection fraction on echocardiography of 07/11/[address] Willoughby was 30 to 35%. We are optimizing medical regimen and have advised close clinical followup. She has a LifeVest in place. We recommend repeat echocardiography in 10/2020 to see if ejection fraction is improved. Review of Systems ROS-Unable to Obtain: Lethargy Constitutional: see HPI Physical Exam Physical Exam Vital Signs Vital Signs - First Documented Capillary Refill : Less Than 3 Seconds Height, Weight, BMI Height: 5'2.00" Weight: 179lbs. 5.0oz. 81.506886rj; 40.75 BMI Method:Stated General Appearance: No Apparent Distress, Chronically ill, Obese Respiratory: No Accessory Muscle Use, No Respiratory Distress, Decreased Breath Sounds Cardiovascular: Regular Rate, Rhythm Neurologic/Psychiatric: Disoriented Results Results/Procedures Labs Laboratory Tests 05/15/21 15:07 05/16/21 05:23 Patient resulted labs reviewed. Assessment/Plan Admission Diagnosis Assessment: Altered mental status Bacteremia of gram-negative juan c with abnormal UA placed on cefepime End-stage cardiomyopathy ischemic type Atrial fibrillation CAD Diabetes Hypertension Smoker COPD ERIC Chronic kidney disease Plan: Cefepime Oxygen Lasix Monitor kidney function Social work Admission Status: Inpatient Order (span 2 midnights) Reason for Inpatient Admission: ams with chf Diagnosis/Problems Diagnosis/Problems (1) CHF exacerbation Onset Date: Unknown Status: Acute (2) Smoker Status: Chronic (3) Presence of stent in coronary artery in patient with coronary artery disease Status: Acute (4) Coronary artery disease without angina pectoris Onset Date: Unknown Status: Chronic (5) Hypothyroidism Onset Date: Unknown Status: Chronic (6) Hypertension Status: Chronic BRENDA DIAZ DO May 16, 2021 07:54
[2021-05-16 08:00] VITALS: BP 165/73
--- NOTE | 2021-05-16 08:18 | Consultation-Cardiology ---
HPI-Cardiology Cardiology Consultation Date of Consultation 05/16/21 Date of Admission Time Seen by Provider: 08:10 Indication: Congestive heart failure HPI 65-year-old lady with history of coronary artery disease, congestive heart failure, ischemic cardiomyopathy, came into the emergency room for increasing weight gain and significant peripheral edema. She reported that she has been compliant with diet and medication. Responded well to aggressive diuresis. This morning she is laying down in bed comfortably, her edema is better. Reporting improvement in her symptoms. Denied any chest pain. No syncope or near syncopal episodes. Home Medications & Allergies Allergies: Uncoded Allergies: Beta bernard (Adverse Reaction, Unknown, 2.4 second pause (07/2018), 05/16/19) Home Medication List Reviewed: Yes GYS-Mcypwl-Npaisu Hx Patient Social History Employed/Student: retired Smoking Status: Current Everyday Smoker Type Used: Cigarettes 2nd Hand Smoke Exposure: No Recent Hopitalizations: No Have you traveled recently?: No Alcohol Use?: No Immunizations Up To Date Tetanus Booster (TDap): Unknown Date of Pneumonia Vaccine: Mar 09, 2016 Date of Influenza Vaccine: Dec 07, 2020 Past Medical History Discussed below Family Medical History Significant Family History: No Pertinent Family Hx Family History: Completed stroke 19 FATHER Diabetes mellitus 19 FATHER G8 BROTHER G8 SISTER Review of Systems-General Review of Systems Constitutional: see HPI; No chills, No fever; malaise, weakness EENTM: see HPI; No nose congestion, No throat pain Respiratory: see HPI, dyspnea on exertion, orthopnea, short of breath Cardiovascular: see HPI; No chest pain; edema; No Hx of Intervention, No palpitations, No syncope, No vascular heart diseas, No other Gastrointestinal: see HPI, diarrhea; No nausea, No vomiting Genitourinary: no symptoms reported, see HPI Musculoskeletal: see HPI; No back pain, No joint pain Skin: see HPI, change in color (Bilateral lower extremities), lesions (Right great toe and right lower anterior leg) Psychiatric/Neurological: See HPI; Denies Headache; Weakness All Other Systems Reviewed Negative Unless Noted: Yes Reviewed Test Results Reviewed Test Results Lab Laboratory Tests Test 05/15/21 15:07 05/15/21 20:23 05/16/21 05:22 05/16/21 05:23 Range/Units White Blood Count 8.0 8.1 4.3-11.0 10^3/uL Red Blood Count 3.46 L 4.02 3.80-5.11 10^6/uL Hemoglobin 9.1 L 10.6 L 11.5-16.0 g/dL Hematocrit 31 L 37 35-52 % Mean Corpuscular Volume 90 91 80-99 fL Mean Corpuscular Hemoglobin 26 26 25-34 pg Mean Corpuscular Hemoglobin Concent 29 L 29 L 32-36 g/dL Red Cell Distribution Width 17.5 H 17.2 H 10.0-14.5 % Platelet Count 150 156 130-400 10^3/uL Mean Platelet Volume 11.6 10.4 9.0-12.2 fL Immature Granulocyte % (Auto) 1 0 % Neutrophils (%) (Auto) 83 H 83 H 42-75 % Lymphocytes (%) (Auto) 8 L 8 L 12-44 % Monocytes (%) (Auto) 6 7 0-12 % Eosinophils (%) (Auto) 1 1 0-10 % Basophils (%) (Auto) 1 1 0-10 % Neutrophils # (Auto) 6.6 6.7 1.8-7.8 10^3/uL Lymphocytes # (Auto) 0.6 L 0.6 L 1.0-4.0 10^3/uL Monocytes # (Auto) 0.5 0.6 0.0-1.0 10^3/uL Eosinophils # (Auto) 0.1 0.1 0.0-0.3 10^3/uL Basophils # (Auto) 0.1 0.0 0.0-0.1 10^3/uL Immature Granulocyte # (Auto) 0.1 0.0 0.0-0.1 10^3/uL Neutrophils % (Manual) 81 % Lymphocytes % (Manual) 5 % Monocytes % (Manual) 11 % Eosinophils % (Manual) 1 % Basophils % (Manual) 2 % Band Neutrophils 0 % Prothrombin Time 15.6 H 12.2-14.7 SEC INR Comment 1.2 0.8-1.4 Activated Partial Thromboplast Time 27 24-35 SEC Sodium Level 140 139 135-145 MMOL/L Potassium Level 3.5 L 3.8 3.6-5.0 MMOL/L Chloride Level 109 H 105 98-107 MMOL/L Carbon Dioxide Level 19 L 22 21-32 MMOL/L Anion Gap 12 12 5-14 MMOL/L Blood Urea Nitrogen 22 H 23 H 7-18 MG/DL Creatinine 1.32 H 1.62 H 0.60-1.30 MG/DL Estimat Glomerular Filtration Rate 45 35 BUN/Creatinine Ratio 17 14 Glucose Level 215 H 96 70-105 MG/DL Lactic Acid Level 1.06 0.50-2.00 MMOL/L Calcium Level 7.2 L 8.6 8.5-10.1 MG/DL Corrected Calcium 8.2 L 9.5 8.5-10.1 MG/DL Total Bilirubin 0.5 0.6 0.1-1.0 MG/DL Aspartate Amino Transf (AST/SGOT) 20 18 5-34 U/L Alanine Aminotransferase (ALT/SGPT) 7 6 0-55 U/L Alkaline Phosphatase 80 83 40-136 U/L Troponin I < 0.30 <0.30 NG/ML Pro-B-Type Natriuretic Peptide 11138.0 H <75.0 PG/ML Total Protein 6.7 7.2 6.4-8.2 GM/DL Albumin 2.7 L 2.9 L 3.2-4.5 GM/DL Glucometer 204 H 97 70-110 MG/DL Magnesium Level 1.9 1.6-2.4 MG/DL B-Type Natriuretic Peptide 7816.3 H <100.0 PG/ML Physical Exam Physical Exam Vital Signs Vital Signs - First Documented Capillary Refill : Less Than 3 Seconds Height, Weight, BMI Height: 5'2.00" Weight: 179lbs. 5.0oz. 81.798755xe; 40.75 BMI Method:Stated General Appearance: No Apparent Distress, WD/WN HEENT: PERRL/EOMI, Other (Mucous membranes dry) Neck: Non Tender, Supple Respiratory: Accessory Muscle Use, Crackles, Wheezing Cardiovascular: Regular Rate, Rhythm, No Murmur, Systolic Murmur Gastrointestinal: Normal Bowel Sounds, Soft, Distended, Other Back: Normal Inspection, No CVA Tenderness, No Vertebral Tenderness Extremity: Non Tender, Pedal Edema (3+ bilateral lower extremities pitting), Ot her (Ulceration on the right ankle with dressing on the ankle) Neurologic/Psychiatric: Alert, Oriented x3 A/P-Cardiology Admission Diagnosis Congestive heart failure, acute on chronic left ventricular systolic dysfunction, ischemic cardiomyopathy Coronary artery disease Hypertension Hyperlipidemia Assessment/Plan Congestive heart failure, acute on chronic left ventricular systolic dysfunction, ischemic cardiomyopathy. Started on aggressive diuresis, continue Lasix 40 IV twice daily, reporting improvement Last echocardiogram done in July 2020 showing ejection fraction 30 to 35%, grade 2 diastolic dysfunction, moderate mitral regurgitation, PA pressure 45 to 50 mmHg, will repeat 2D echo. Intolerant to beta-blockers with sinus node dysfunction, had 2.4 seconds pause while on beta-blockers in July 2018 Paroxysmal atrial fibrillation, seen during hospitalization in June 2019, maintained on Xarelto Coronary artery disease, history of Non-ST elevation myocardial infarction in May and June 2019 secondary to small vessel disease. Cardiac catheterization May 2019 showing mild ostial left main, mild ostial LAD, patent stent known to be 3 x 24 PARAMJIT placed in January 2018 in [place], mild to moderate diffuse calcification in the coronary system, right coronary artery is chronically occluded with collaterals from the left. Stress test done in July 2020 showing left bundle branch block, fixed defect involving the inferior wall, fixed defect at the base of the anterior wall with mild reversible ischemia at the anterior wall, Viability study in July 2020 showed viable myocardium involving the lateral, inferolateral and inferior wall Cardiac catheterization in August 2020 showing diffuse mild to moderate disease within the left coronary system without significant obstructive disease, patent stent in the proximal LAD, chronic total occlusion of the right coronary artery at the ostium with collateral filling the right from the left system. Peripheral arterial disease, extensive disease, had bilateral ostial SFA occlusion, had angiogram done in January [address] Merino Following for her peripheral arterial disease with Dr. Sanz Hypertension, restart home medication monitor blood pressure Hyperlipidemia, maintained on statin, monitor lipids Diabetes mellitus, followed and managed by primary care physician Chronic kidney disease stage III-IV, probably diabetic nephropathy, followed by primary care physician COPD, followed and managed by primary care physician Tobaccoism, educated on smoking cessation Questionable sleep apnea, maintained on oxygen at night GERMAN ALEJANDRE MD May 16, 2021 08:18
[2021-05-16] MEDS: ISOSORBIDE MONONITRATE 60 MG (IMDUR) TAB PO SCH (08:46)
[2021-05-16] MEDS: lisINopril 20 MG (PRINIVIL) TABLET PO SCH (08:46)
--- NOTE | 2021-05-16 09:47 | Physical Therapy Evaluation ---
PT Evaluation-General Medical Diagnosis Admission Date May 15, 2021 at 18:07 Medical Diagnosis: CHF exacerbation Onset Date: May 15, 2021 Therapy Diagnosis Therapy Diagnosis: debility/weakness Height/Weight Height (Feet): 5 Height (Inches): 2.00 Weight (Pounds): 179 Weight (Ounces): 5.0 Precautions Precautions/Isolations: Fall Prevention, Standard Precautions Weight Bear Status Right Lower Extremity: Right Weight Bearing/Tolerated Left Lower Extremity: Left Weight Bearing/Tolerated Referral Physician: Myles Reason for Referral: Evaluation/Treatment Medical History Pertinent Medical History: CAD, COPD, DM, Hypothroidism, [place], Neuropathy, PVD, Renal Insufficiency, Smoking Additional Medical History Covid x 2 episodes/ multiple falls per patient report Current History ER secondary to abdominal swelling Reviewed History: Yes Prior Prior Level of Function SCALE: Activities may be completed with or without assistive devices. 7-Ixulunenhd-eybkbrv completes the activity by him/herself with no assistance from a helper. 5-Set-up or Clean-up Assistance-helper sets up or cleans up; patient completes activity. [place] assists only prior to or following the activity. 4-Supervision or Touching Assistance-helper provides verbal cues and/or touching/steadying and/or contact guard assistance as patient completes activity. Assistance may be provided throughout the activity or intermittently. 3-Partial/Moderate Assistance-helper does LESS THAN HALF the effort. [place] lifts, holds or supports trunk or limbs, but provides less than half the effort. 2-Substantial/Maximal Assistance-helper does MORE THAN HALF the effort. [place] lifts or holds trunk or limbs and provides more than half the effort. 0-Jxqwiwnky-pakoed does ALL the effort. Patient does none of the effort to compl ete the activity. Or, the assistance of 2 or more helpers is required for the patient to complete the activity. If activity was not attempted, code reason: 7-Patient Refused. 9-Not Applicable-not attempted and the patient did not perform the activity before the current illness, exacerbation or injury. 10-Not Attempted due to Environmental Limitations-(lack of equipment, weather restraints, etc.). 88-Not Attempted due to Medical Conditions or Safety Concerns. Bed Mobility: 3 Transfers (B,C,W/C): 3 Gait: 3 Indoor Mobility (Ambulation): Needed Some Help Stairs: Not Applicalbe Prior Devices Use: Walker PT Evaluation-Current Subjective Patient agrees to PT. No c/o at this time. Objective Patient Orientation: Normal For Age Attachments: Oxygen, Cade Catheter ROM/Strength ROM Lower Extremities bilateral LE WFL Strength Lower Extremities 3+/5 grossly bilateral LE Integumentary/Posture Integumentary right LE redness/edema Bladder Incontinence: Cade Cath Posture WFL Neuromuscular (Tone, Coordination, Reflexes) grossly intact Sensory Vision: Functional Hearing: Functional Sensation Right Lower Extremit: Impaired Sensation Left Lower Extremity: Impaired Transfers Lying to Sitting/Side of Bed(Q: 3 Sit to Stand (QC): 3 Chair/Gyo-pl-Azhnj Xfer(QC): 3 Gait Does the Patient Walk?: Yes Mode of Locomotion: Both Anticipated Mode of Locomotion: Both Walk 10 feet (QC): 3 Gait Assistive Device: FWW Comments/Gait Description slow with noted bilateral "shaking" Balance Sitting Static: Fair Sitting Dynamic: Fair Standing Static: Fair Standing Dynamic: Fair Assessment/Needs 65 y.o. female, will benefit from skilled PT to address functional strength and mobility. Patient has noted bilateral LE atrophy. Rehab Potential: Fair PT Recruiting Manager Goals Care Home Goals PT Care Home Goals Time Frame: May 25, 2021 Roll Left & Right (QC): 4 Sit to Lying (QC): 4 Lying-Sitting on Side/Bed(QC): 4 Sit to Stand (QC): 4 Chair/Row-hq-Bedyv Xfer(QC): 4 Toilet Transfer (QC): 4 Walk 10 feet (QC): 3 Walk 50ft with 2 Turns (QC): 3 PT Plan Problem List Problem List: Activity Tolerance, Functional Strength, Safety, Balance, Gait, Transfer, Bed Mobility Treatment/Plan Treatment Plan: Continue Plan of Care Treatment Plan: Bed Mobility, Education, Functional Activity Марина, Functional Strength, Gait, Safety, Therapeutic Exercise, Transfers Treatment Duration: May 25, 2021 Frequency: 6 times per week Estimated Hrs Per Day: .25 hour per day Patient and/or Family Agrees t: Yes Discharge Recommendations Therapy Discharge Recommendati: Post Acute PT Time/GCodes Time In: 918 Time Out: 930 Total Billed Treatment Time: 12 Total Billed Treatment 1 visit EVModC 12 min LARY JOYNER PT May 16, 2021 09:47
[2021-05-16] MEDS ORDERED: FURO40TA4 PO (11:30)
[2021-05-16] MEDS ORDERED: GABA300C PO ×2 (11:31)
[2021-05-16] MEDS ORDERED: ASPI-1238 PO (11:32)
[2021-05-16] MEDS ORDERED: SERT-414 PO (11:34)
[2021-05-16] MEDS ORDERED: LEVO137T2 PO (11:35)
[2021-05-16] MEDS: DOCUSATE SODIUM 100 MG (COLACE) CAP PO SCH ×2 (11:36→21:24)
[2021-05-16 11:41] VITALS: BP 158/69
--- NOTE | 2021-05-16 11:49 | Occ Therapy Progress Note ---
Therapy Progress Note OT orders received and chart reviewed. OT attempted evaluation, pt laying in bed, too lethargic to participate in skilled therapy at this time. Pt would not open her eyes and would not answer any questions. OT will attempt evaluation again this afternoon. 1, visit 1112 SUZANNA POLK OT May 16, 2021 11:49
[2021-05-16] MEDS ORDERED: NITROGLYCERIN 0.4 MG SL TABS BTL 25'S SL PRN (12:45)
[2021-05-16] MEDS ORDERED: RT-ALBUTEROL SULF 2.5 MG/3 ML PRE-MIX VIAL IH PRN (12:45)
[2021-05-16 13:42] LABS: ABG BASE EXCESS 2.2 MMOL/L (-2.5-2.5); ABG OXYGEN SATURATION 96 % (94-100); ABG PCO2 48 MMHG (35-45); ABG PH 7.36 (7.37-7.43); ABG PO2 74 MMHG (79-93); ABG TCO2 28.9 MMOL/L (21.0-31.0)
--- NOTE | 2021-05-16 13:45 | Occ Therapy Progress Note ---
Therapy Progress Note OT evaluation attempted this afternoon, pt too lethargic to actively participate in skilled therapy at this time. Pt unable to open eyes, or respond to questions at this time. OT wll attempt evaluation tomorrow. SUZANNA POLK OT May 16, 2021 13:44
[2021-05-16 13:49] LABS: ALLENS TEST YES-POS
[2021-05-16 13:50] LABS: INSPIRED O2 2L; PATIENT TEMP 35.6; VENTILATOR NO
[2021-05-16] MEDS: CEFEPIME INJECTION 1,000 MG in NS (IVPB) 50 ML IV SCH ×2 (14:12→21:24)
[2021-05-16 14:13] LABS: BILIRUBIN,URINE NEGATIVE (NEGATIVE); CLARITY,URINE CLEAR; COLOR,URINE YELLOW; GLUCOSE, URINE (UA) NEGATIVE (NEGATIVE); KETONES,URINE NEGATIVE (NEGATIVE); LEUKOCYTE ESTERASE ,URINE TRACE (NEGATIVE); NITRITE,URINE NEGATIVE (NEGATIVE); PROTEIN,URINE 2+ (NEGATIVE)
[2021-05-16 14:19] LABS: BACTERIA,URINE FEW /HPF; RBC,URINE 25-50 /HPF; SQUAMOUS EPITHELIAL CELL,UR 0-2 /HPF
[2021-05-16 15:50] VITALS: BP 127/68
[2021-05-16] MEDS: RIVAROXABAN 20 MG TABLET (XARELTO) PO SCH (18:03)
[2021-05-16] MEDS: MICONAZOLE 2% POWDER (DESENEX AF) 90 GM TOP SCH ×2 (18:03→21:23)
[2021-05-16 20:19] VITALS: BP 144/67
[2021-05-16] MEDS ORDERED: NON-FORMULARY MEDICATION 1 EA EA (Insulin Glargine,Hum.rec.anlog (Lantus Solostar) 20 UNIT SQ SCH (21:00)
[2021-05-16] MEDS ORDERED: NON-FORMULARY MEDICATION 1 EA EA (Insulin Aspart (Novolog Flexpen) 20 UNITS) SQ SCH (21:00)
[2021-05-16] MEDS: GABAPENTIN 300 MG (NEURONTIN) CAP PO SCH (21:24)
[2021-05-17] VITALS: BP 153/75
[2021-05-17 03:59] VITALS: BP 116/64
[2021-05-17] MEDS: CEFEPIME INJECTION 1,000 MG in NS (IVPB) 50 ML IV SCH (05:17)
[2021-05-17 05:48] LABS: BASOPHILS % (AUTO) 0 % (0-10); EOSINOPHILS # (AUTO) 0.1 10^3/uL (0.0-0.3); EOSINOPHILS % (AUTO) 2 % (0-10); HEMATOCRIT 32 % (35-52); LYMPHOCYTES # (AUTO) 0.6 10^3/uL (1.0-4.0); LYMPHOCYTES % (AUTO) 8 % (12-44); MEAN CORPUSCULAR HEMOGLOBIN 26 pg (25-34); MEAN CORPUSCULAR HGB CONC 28 g/dL (32-36); MEAN CORPUSCULAR VOLUME 93 fL (80-99); MONOCYTES # (AUTO) 0.5 10^3/uL (0.0-1.0); MONOCYTES % (AUTO) 6 % (0-12); NEUTROPHILS # (AUTO) 6.5 10^3/uL (1.8-7.8); NEUTROPHILS % (AUTO) 83 % (42-75); PLATELET COUNT 159 10^3/uL (130-400); WHITE BLOOD COUNT 7.8 10^3/uL (4.3-11.0)
[2021-05-17 06:19] LABS: ALANINE AMINOTRANSFERASE < 6 U/L (0-55); ALBUMIN 2.4 GM/DL (3.2-4.5); ALKALINE PHOSPHATASE 65 U/L (40-136); BILIRUBIN,TOTAL 0.5 MG/DL (0.1-1.0); BUN/CREATININE RATIO 17; CARBON DIOXIDE 20 MMOL/L (21-32); CHLORIDE 108 MMOL/L (98-107); CREATININE SERUM 1.53 MG/DL (0.60-1.30); GFR ESTIMATED 38; GLUCOSE 99 MG/DL (70-105); POTASSIUM 3.7 MMOL/L (3.6-5.0); SODIUM 141 MMOL/L (135-145); TOTAL PROTEIN 6.2 GM/DL (6.4-8.2)
--- NOTE | 2021-05-17 06:32 | Progress Note - Hospitalist ---
Subjective HPI/CC On Admission Date Seen by Provider: May 17, 2021 Time Seen by Provider: 10:30 Chief Complaint: Altered mental status HPI: This is a 65yoWF who presented to [place] ER with Altered Mental Status and Anasarca. She was found to have Heart Failure with an elevated BNP prompting consult with Dr. Willoughby. IV Lasix continues and that has helped her. I did order an ABG due to the altered mental status and CO2 Narcosis so will monitor that. Cardiology says she can go home. She in noncompliant with even getting Echo and [employer] Maintenance. She appears to not be able to comprehend these issues and will have Cartography/Mapping Technician reach out for a skilled stay. Gram negative rods on blood culture so we will need to follow-up on that and will place her on empiric Cefepime and obtain a UA as the source. Subjective/Events-last exam Patient doing a lot better Up in chair today Blood cultures are positive for gram-negative so I placed on cefepime yesterday Blood cultures appear to be strep so I changed to Rocephin PT and OT working with her Lasix continues Palliative care saw her and patient will decide with her home health at discharge or hospice Review of Systems General: Fatigue, Malaise Focused Exam Lactate Level 05/15/21 15:07: Lactic Acid Level 1.06 Objective Exam Vital Signs Vital Signs Date Time Temp Pulse Resp B/P (MAP) Pulse Ox O2 Delivery O2 Flow Rate FiO2 05/18/21 04:00 36.2 67 19 133/58 (83) 98 Nasal Cannula 2.00 Capillary Refill : Less Than 3 Seconds General Appearance: No Apparent Distress, WD/WN, Chronically ill, Obese Respiratory: Lungs Clear, Normal Breath Sounds Cardiovascular: Regular Rate, Rhythm Neurologic/Psychiatric: Alert, Oriented x3 Results/Procedures Lab Laboratory Tests 05/18/21 05:36 Patient resulted labs reviewed. Assessment/Plan Assessment and Plan Assess & Plan/Chief Complaint Assessment: Altered mental status Bacteremia of gram-negative juan c with abnormal UA placed on cefepime and changed to Rocephin due to strep identified End-stage cardiomyopathy ischemic type Atrial fibrillation CAD Diabetes Hypertension Smoker COPD ERIC Chronic kidney disease Plan: Cefepime Oxygen Lasix Monitor kidney function Social work 05/17/2021: Rocephin PT and OT Home health versus hospice at discharge Diagnosis/Problems Diagnosis/Problems (1) CHF exacerbation Onset Date: Unknown Status: Acute (2) Smoker Status: Chronic (3) Presence of stent in coronary artery in patient with coronary artery disease Status: Acute (4) Coronary artery disease without angina pectoris Onset Date: Unknown Status: Chronic (5) Hypothyroidism Onset Date: Unknown Status: Chronic (6) Hypertension Status: Chronic ORIANA DIAZ DO May 17, 2021 06:32
[2021-05-17] MEDS: FUROSEMIDE 40 MG/4 ML INJ (LASIX) IVP SCH ×2 (06:54→17:05)
[2021-05-17] MEDS: LEVOTHYROXINE 112 MCG (LEVOTHROID) TAB PO SCH (06:54)
[2021-05-17] MEDS: LEVOTHYROXINE 25 MCG (LEVOTHROID) TAB PO SCH (06:54)
[2021-05-17] MEDS: RT-ALBUTEROL SULF 2.5 MG/3 ML PRE-MIX VIAL INH SCH ×4 (07:24→18:58)
[2021-05-17] MEDS: inSUlin ASPART (NovoLOG) 1 UNIT/0.01 ML (CHARGE PER UNIT) SC SCH ×6 (07:59→20:56)
[2021-05-17 08:18] VITALS: BP 146/69
[2021-05-17] MEDS: ISOSORBIDE MONONITRATE 60 MG (IMDUR) TAB PO SCH (09:00)
[2021-05-17] MEDS: MICONAZOLE 2% POWDER (DESENEX AF) 90 GM TOP SCH ×2 (09:00→21:03)
[2021-05-17] MEDS: GABAPENTIN 300 MG (NEURONTIN) CAP PO SCH ×2 (09:00→21:03)
[2021-05-17] MEDS: SERTRALINE 100 MG (ZOLOFT) TAB PO SCH (09:00)
[2021-05-17] MEDS: lisINopril 20 MG (PRINIVIL) TABLET PO SCH (09:00)
[2021-05-17] MEDS: DOCUSATE SODIUM 100 MG (COLACE) CAP PO SCH ×2 (09:00→21:02)
[2021-05-17] MEDS ORDERED: NON-FORMULARY MEDICATION 1 EA EA (Levothyroxine Sodium 137 MCG) PO SCH (09:00)
[2021-05-17] MEDS ORDERED: ISOSORBIDE MONONITRATE 60 MG (IMDUR) TAB PO SCH (09:00)
[2021-05-17] MEDS: ASPIRIN E.C. 81 MG (ECOTRIN) TAB PO SCH (09:00)
--- NOTE | 2021-05-17 09:20 | Physical Therapy Daily Note ---
PT Daily Note-Current Subjective Patient is a very good mood and reports she is feeling much better. Agrees to PT. Mental Status Patient Orientation: Normal For Age Transfers SCALE: Activities may be completed with or without assistive devices. 0-Vaedszugyf-xthjwik completes the activity by him/herself with no assistance from a helper. 5-Set-up or Clean-up Assistance-helper sets up or cleans up; patient completes activity. [place] assists only prior to or following the activity. 4-Supervision or Touching Assistance-helper provides verbal cues and/or touching/steadying and/or contact guard assistance as patient completes activity. Assistance may be provided throughout the activity or intermittently. 3-Partial/Moderate Assistance-helper does LESS THAN HALF the effort. [place] lifts, holds or supports trunk or limbs, but provides less than half the effort. 2-Substantial/Maximal Assistance-helper does MORE THAN HALF the effort. [place] lifts or holds trunk or limbs and provides more than half the effort. 3-Ebzkrpllf-jidtdn does ALL the effort. Patient does none of the effort to complete the activity. Or, the assistance of 2 or more helpers is required for the patient to complete the activity. If activity was not attempted, code reason: 7-Patient Refused. 9-Not Applicable-not attempted and the patient did not perform the activity before the current illness, exacerbation or injury. 10-Not Attempted due to Environmental Limitations-(lack of equipment, weather restraints, etc.). 88-Not Attempted due to Medical Conditions or Safety Concerns. Lying to Sitting/Side of Bed(Q: 3 Sit to Stand (QC): 4 Chair/Mpf-ye-Zhyef Xfer(QC): 4 Weight Bearing Right Lower Extremity: Right Weight Bearing/Tolerated Left Lower Extremity: Left Weight Bearing/Tolerated Gait Training Distance: 50' Walk 10 feet (QC): 4 Walk 50 ft with 2 Turns(QC): 4 Gait Assistive Device: FWW improve gait sequence/strength Exercises Seated Therapy Exercises: Ankle pumps, Long arc quads, Hip flexion Seated Reps: 15 Assessment Patient much improved on this date. Continue to increase activity as tolerated by patient. PT Snf Goals Snf Goals PT Snf Goals Time Frame: May 25, 2021 Roll Left & Right (QC): 4 Sit to Lying (QC): 4 Lying-Sitting on Side/Bed(QC): 4 Sit to Stand (QC): 4 Chair/Com-vd-Ukmhw Xfer(QC): 4 Toilet Transfer (QC): 4 Walk 10 feet (QC): 3 Walk 50ft with 2 Turns (QC): 3 PT Plan Treatment/Plan Treatment Plan: Continue Plan of Care Treatment Plan: Bed Mobility, Education, Functional Activity Марина, Functional Strength, Gait, Safety, Therapeutic Exercise, Transfers Treatment Duration: May 25, 2021 Frequency: 6 times per week Estimated Hrs Per Day: .25 hour per day Patient and/or Family Agrees t: Yes Time/GCodes Time In: 827 Time Out: 839 Total Billed Treatment Time: 12 Total Billed Treatment 1 visit FA 12 min LARY JOYNER PT May 17, 2021 09:20
[2021-05-17 11:34] VITALS: BP 133/61
--- NOTE | 2021-05-17 11:48 | Occupational Therapy Eval ---
OT Evaluation-General/PLF Medical Diagnosis Admission Date May 15, 2021 at 18:07 Medical Diagnosis: CHF exacerbation Onset Date: May 15, 2021 Therapy Diagnosis Therapy Diagnosis: decreased ADL status Height/Weight Height (Feet): 5 Height (Inches): 2.00 Weight (Pounds): 179 Weight (Ounces): 5.0 Precautions Precautions/Isolations: Fall Prevention, Standard Precautions Referral Physician: Myles Referral Reason: Evaluation/Treatment Medical History Pertinent Medical History: CAD, COPD, DM, Hypothroidism, LA, Neuropathy, PVD, Renal Insufficiency, Smoking Additional Medical History COPD, cardiomyopathy, chronic edema/swelling, CAD, heart attack, HTN, PVD, neuropathy, GERD, renal failure, hypothyroidism, DM Current History ED with weight gain and peripheral edema Social History Current Living Status: Children (daughter) ADL-Prior Level of Function SCALE: Activities may be completed with or without assistive devices. 7-Fnybumzzic-affwtgz completes the activity by him/herself with no assistance from a helper. 5-Set-up or Clean-up Assistance-helper sets up or cleans up; patient completes activity. [place] assists only prior to or following the activity. 4-Supervision or Touching Assistance-helper provides verbal cues and/or touching/steadying and/or contact guard assistance as patient completes activity. Assistance may be provided throughout the activity or intermittently. 3-Partial/Moderate Assistance-helper does LESS THAN HALF the effort. [place] lifts, holds or supports trunk or limbs, but provides less than half the effort. 2-Substantial/Maximal Assistance-helper does MORE THAN HALF the effort. [place] lifts or holds trunk or limbs and provides more than half the effort. 7-Ogauksqjd-vhzerv does ALL the effort. Patient does none of the effort to complete the activity. Or, the assistance of 2 or more helpers is required for the patient to complete the activity. If activity was not attempted, code reason: 7-Patient Refused. 9-Not Applicable-not attempted and the patient did not perform the activity before the current illness, exacerbation or injury. 10-Not Attempted due to Environmental Limitations-(lack of equipment, weather restraints, etc.). 88-Not Attempted due to Medical Conditions or Safety Concerns. ADL PLOF Comments Pt reports using walker for functional mobility. She lives with her daughter and requires some assistance with ADLs at baseline. Pt only completes sponge baths as she has a fear of falling associated with getting in/out of the bathtub. Pt able to manage toileting and UE dressing independently, requires assistance with footwear and threading BLEs into pants. Self Care: Needed Some Help Functional Cognition: Independent OT Current Status Subjective Pt up in recliner, agreeable to OT Tx Mental Status/Objective Patient Orientation: Confused, Place, Situation Current Dentures/Partials: Yes Hand Dominance: Right Upper Extremity ROM WFL Upper Extremity Strength grossly 3+/5 ADL-Treatment Eating (QC): 5 (set up per pt report.) Oral Hygiene (QC): 5 (set up per pt report. ) Other Treatments Pt up in recliner, declined ADLs at this time, as she doesn't need to use the bathroom and she is soaking her dentures. Pt provided information about PLOF and home set up. Pt agreeable to BUE exercises in order to increase strength and activity tolerance. Pt completed x10 reps each of the following: shoulder flexion, elbow flexion/extension, front punch, wrist flexion/extension and finger flexion/extension. Pt declined getting out of chair and declined further activity at si time. Post tx, pt in recliner, call light in reach and all needs met. Education OT Patient Education: Correct positioning, Energy conservation, Modified ADL techniques, Progress toward Goal/Update tx plan, Purpose of tx/functional activities, Rehab process Teaching Recipient: Patient Teaching Methods: Discussion Response to Teaching: Verbalize Understanding OT Laboratory Specialist Goals Laboratory Specialist Goals Time Frame: May 24, 2021 Eating (QC): 6 Oral Hygiene (QC): 6 Toileting Hygiene (QC): 4 Shower/Bathe Self (QC): 4 Upper Body Dressing (QC): 5 Lower Body Dressing (QC): 3 On/Off Footwear (QC): 3 Additional Goals: 1-Demonstrate ADL Tasks, 2-Verbalize Understanding, 3- ImproveStrength/Марина 1=Demonstrate adherence to instructed precautions during ADL tasks. 2=Patient will verbalize/demonstrate understanding of assistive devices/modifications for ADL. 3=Patient will improve strength/tolerance for activity to enable patient to perform ADL's. OT Education/Plan Problem List/Assessment Assessment: Decreased Activ Tolerance, Decreased UE Strength, Impaired Funct Balance, Impaired I ADL's, Impaired Self-Care Skills Discharge Recommendations Plan/Recommendations: Continue POC Treatment Plan/Plan of Care Patient would benefit from OT for education, treatment and training to promote independence in ADL's, mobility, safety and/or upper extremity function for ADL's. Plan of Care: ADL Retraining, Functional Mobility, UE Funct Exercise/Act Treatment Duration: May 24, 2021 Frequency: 3 times per week (3-5 times per week) Estimated Hrs Per Day: .25 hour per day Agreement: Yes Rehab Potential: Fair Time/GCodes Start Time: 10:38 Stop Time: 10:50 Total Time Billed (hr/min): 12 Billed Treatment Time 1, SUZANNA RIVERA OT May 17, 2021 11:48
[2021-05-17] MEDS: cefTRIAXone 1 GM PRE-MIX 50 ML IV SCH (12:24)
[2021-05-17 16:02] VITALS: BP 122/57
--- NOTE | 2021-05-17 16:09 | Cardiology Progress Note ---
Subjective Date Seen by Provider: May 17, 2021 Time Seen by Provider: 16:07 Subjective/Events-last exam Patient was seen at bedside sitting comfortably, feeling better, breathing better. Review of Systems General: No Chills, No Night Sweats, No Fatigue, No Malaise, No Appetite, No Other HEENT: No Head Aches, No Visual Changes, No Eye Pain, No Ear Pain, No Dysphasia, No Sinus Congestion, No Post Nasal Drip, No Sore Throat, No Other Pulmonary: No Dyspnea, No Cough, No Pleuritic Chest Pain, No Other Cardiovascular: No: Chest Pain, Palpitations, Orthopnea, Paroxysmal Noc. Dyspnea, Edema, Lt Headedness, Other Focused Exam Lactate Level 05/15/21 15:07: Lactic Acid Level 1.06 Objective-Cardiology Exam Last Set of Vital Signs Vital Signs 05/17/21 05/17/21 08:00 16:02 Temp 36.6 Pulse 77 Resp 20 B/P (MAP) 122/57 (78) Pulse Ox 91 O2 Delivery Room Air O2 Flow Rate 2.00 I&O l Intake and Output 05/17/21 00:00 Intake Total 300 ml Output Total 2700 ml Balance -2400 ml Intake Oral 300 ml Output Urine Total 2700 ml # Bowel Movements 1 General: Alert, Oriented X3, Cooperative HEENT: Atraumatic, PERRLA Neck: Supple, No JVD, No Thyromegaly Lungs: Clear to Auscultation, Normal Air Movement Heart: Regular Rate, Normal S1, Normal S2, No Murmurs Abdomen: Normal Bowel Sounds, Soft, No Tenderness, No Hepatosplenomegaly, No Masses Extremities: No Clubbing, No Cyanosis, No Edema, Normal Pulses, No Tenderness/Swelling Skin: No Rashes, No Breakdown, No Significant Lesion Neuro: Normal Gait, Normal Speech, Strength at 5/5 X4 Ext, Normal Tone, Sensation Intact Psych/Mental Status: Mental Status NL, Mood NL Results Lab Laboratory Tests 05/17/21 05:36 A/P-Cardiology Admission Diagnosis Congestive heart failure, acute on chronic left ventricular systolic dysfunction, ischemic cardiomyopathy Coronary artery disease Hypertension Hyperlipidemia Assessment/Plan Congestive heart failure, acute on chronic left ventricular systolic dysfunction, ischemic cardiomyopathy. Responded well to diuretics. Continue to monitor 2D echocardiogram was done showing ejection fraction 35 to 40%, segmental wall motion abnormality, left atrial dilatation, pulmonary artery pressure 40 mmHg. Intolerant to beta-blockers with sinus node dysfunction, had 2.4 seconds pause while on beta-blockers in July 2018 Paroxysmal atrial fibrillation, seen during hospitalization in June 2019, maintained on Xarelto Coronary artery disease, history of Non-ST elevation myocardial infarction in May and June 2019 secondary to small vessel disease. Cardiac catheterization May 2019 showing mild ostial left main, mild ostial LAD, patent stent known to be 3 x 24 PARAMJIT placed in January 2018 in [place], mild to moderate diffuse calcification in the coronary system, right coronary artery is chronically occluded with collaterals from the left. Stress test done in July 2020 showing left bundle branch block, fixed defect involving the inferior wall, fixed defect at the base of the anterior wall with mild reversible ischemia at the anterior wall, Viability study in July 2020 showed viable myocardium involving the lateral, inferolateral and inferior wall Cardiac catheterization in August 2020 showing diffuse mild to moderate disease within the left coronary system without significant obstructive disease, patent stent in the proximal LAD, chronic total occlusion of the right coronary artery at the ostium with collateral filling the right from the left system. Peripheral arterial disease, extensive disease, had bilateral ostial SFA occlusion, had angiogram done in January [address] Merino Following for her peripheral arterial disease with Dr. Sanz Hypertension, restart home medication monitor blood pressure Hyperlipidemia, maintained on statin, monitor lipids Diabetes mellitus, followed and managed by primary care physician Chronic kidney disease stage III-IV, probably diabetic nephropathy, followed by primary care physician COPD, followed and managed by primary care physician Tobaccoism, educated on smoking cessation Questionable sleep apnea, maintained on oxygen at night GERMAN ALEJANDRE MD May 17, 2021 16:09
[2021-05-17] MEDS: RIVAROXABAN 20 MG TABLET (XARELTO) PO SCH (17:05)
[2021-05-17 19:43] VITALS: BP 146/63
[2021-05-18] VITALS: BP 124/59
[2021-05-18 04:00] VITALS: BP 133/58
[2021-05-18 05:42] LABS: BASOPHILS % (AUTO) 1 % (0-10); EOSINOPHILS # (AUTO) 0.1 10^3/uL (0.0-0.3); EOSINOPHILS % (AUTO) 2 % (0-10); HEMATOCRIT 34 % (35-52); HEMOGLOBIN 9.4 g/dL (11.5-16.0); LYMPHOCYTES # (AUTO) 0.6 10^3/uL (1.0-4.0); LYMPHOCYTES % (AUTO) 9 % (12-44); MEAN CORPUSCULAR HEMOGLOBIN 26 pg (25-34); MEAN CORPUSCULAR HGB CONC 28 g/dL (32-36); MEAN CORPUSCULAR VOLUME 94 fL (80-99); MEAN PLATELET VOLUME 10.6 fL (9.0-12.2); MONOCYTES # (AUTO) 0.5 10^3/uL (0.0-1.0); MONOCYTES % (AUTO) 8 % (0-12); NEUTROPHILS # (AUTO) 5.1 10^3/uL (1.8-7.8); NEUTROPHILS % (AUTO) 80 % (42-75); PLATELET COUNT 136 10^3/uL (130-400); WHITE BLOOD COUNT 6.4 10^3/uL (4.3-11.0)
[2021-05-18 05:54] LABS: ALBUMIN 2.8 GM/DL (3.2-4.5)
[2021-05-18 05:55] LABS: CALCIUM 8.1 MG/DL (8.5-10.1)
[2021-05-18 05:56] LABS: TOTAL PROTEIN 6.7 GM/DL (6.4-8.2)
[2021-05-18 05:58] LABS: BILIRUBIN,TOTAL 0.5 MG/DL (0.1-1.0)
[2021-05-18 06:00] LABS: CREATININE SERUM 1.8 MG/DL (0.60-1.30)
[2021-05-18] MEDS: LEVOTHYROXINE 112 MCG (LEVOTHROID) TAB PO SCH (06:23)
[2021-05-18] MEDS: LEVOTHYROXINE 25 MCG (LEVOTHROID) TAB PO SCH (06:23)
[2021-05-18] MEDS: FUROSEMIDE 40 MG/4 ML INJ (LASIX) IVP SCH ×2 (06:24→17:21)
[2021-05-18] MEDS: inSUlin ASPART (NovoLOG) 1 UNIT/0.01 ML (CHARGE PER UNIT) SC SCH ×6 (06:24→22:17)
--- NOTE | 2021-05-18 07:35 | Progress Note - Hospitalist ---
Subjective HPI/CC On Admission Date Seen by Provider: May 18, 2021 Time Seen by Provider: 11:00 Chief Complaint: Altered mental status HPI: This is a 65yoWF who presented to [place] ER with Altered Mental Status and Anasarca. She was found to have Heart Failure with an elevated BNP prompting consult with Dr. Willoughby. IV Lasix continues and that has helped her. I did order an ABG due to the altered mental status and CO2 Narcosis so will monitor that. Cardiology says she can go home. She in noncompliant with even getting Echo and Lifevest Maintenance. She appears to not be able to comprehend these issues and will have [employer] reach out for a skilled stay. Gram negative rods on blood culture so we will need to follow-up on that and will place her on empiric Cefepime and obtain a UA as the source. Subjective/Events-last exam Patient doing a lot better today More alert Creatinine 1.8 Lasix continues No pain is reported Rocephin maintain for strep and blood culture Patient appears to have end-stage processes Bowels are moving Review of Systems General: Fatigue Pulmonary: Dyspnea Focused Exam Lactate Level Objective Exam Vital Signs Vital Signs Date Time Temp Pulse Resp B/P (MAP) Pulse Ox O2 Delivery O2 Flow Rate FiO2 05/19/21 04:00 36.1 57 18 136/58 (84) 91 Nasal Cannula 3.00 Capillary Refill : Less Than 3 Seconds General Appearance: No Apparent Distress, WD/WN, Chronically ill Respiratory: Lungs Clear, Normal Breath Sounds, Decreased Breath Sounds Cardiovascular: Regular Rate, Rhythm Neurologic/Psychiatric: Alert, Oriented x3, Depressed Affect Results/Procedures Lab Patient resulted labs reviewed. Assessment/Plan Assessment and Plan Assess & Plan/Chief Complaint Assessment: Altered mental status Bacteremia of gram-negative juan c with abnormal UA placed on cefepime and changed to Rocephin due to strep identified End-stage cardiomyopathy ischemic type Atrial fibrillation CAD Diabetes Hypertension Smoker COPD ERIC Chronic kidney disease Apathy with medical noncompliance Plan: Cefepime Oxygen Lasix Monitor kidney function Social work 05/17/2021: Rocephin PT and OT Home health versus hospice at discharge 05/18/2021: Antibiotics Patient is hospice candidate in my medical opinion Diagnosis/Problems Diagnosis/Problems (1) CHF exacerbation Onset Date: Unknown Status: Acute (2) Smoker Status: Chronic (3) Presence of stent in coronary artery in patient with coronary artery disease Status: Acute (4) Coronary artery disease without angina pectoris Onset Date: Unknown Status: Chronic (5) Hypothyroidism Onset Date: Unknown Status: Chronic (6) Hypertension Status: Chronic ORIANA DIAZ DO May 18, 2021 07:35
[2021-05-18 08:05] VITALS: BP 138/64
[2021-05-18] MEDS: RT-ALBUTEROL SULF 2.5 MG/3 ML PRE-MIX VIAL INH SCH ×4 (08:22→18:56)
[2021-05-18] MEDS: ASPIRIN E.C. 81 MG (ECOTRIN) TAB PO SCH (09:09)
[2021-05-18] MEDS: GABAPENTIN 300 MG (NEURONTIN) CAP PO SCH ×2 (09:10→22:16)
[2021-05-18] MEDS: DOCUSATE SODIUM 100 MG (COLACE) CAP PO SCH ×2 (09:10→22:16)
[2021-05-18] MEDS: lisINopril 20 MG (PRINIVIL) TABLET PO SCH (09:10)
[2021-05-18] MEDS: SERTRALINE 100 MG (ZOLOFT) TAB PO SCH (09:10)
[2021-05-18] MEDS: ISOSORBIDE MONONITRATE 60 MG (IMDUR) TAB PO SCH (09:10)
[2021-05-18] MEDS: MICONAZOLE 2% POWDER (DESENEX AF) 90 GM TOP SCH ×2 (09:11→22:17)
--- NOTE | 2021-05-18 10:53 | Physical Therapy Daily Note ---
PT Daily Note-Current Subjective Pt in bed and agrees to PT. Reports she was just up to take a shower so denies amb this date. Mental Status Patient Orientation: Person, Place, Time, Normal For Age Transfers SCALE: Activities may be completed with or without assistive devices. 6-Ltsrpnayot-uoyevbb completes the activity by him/herself with no assistance from a helper. 5-Set-up or Clean-up Assistance-helper sets up or cleans up; patient completes activity. [place] assists only prior to or following the activity. 4-Supervision or Touching Assistance-helper provides verbal cues and/or touching/steadying and/or contact guard assistance as patient completes a ctivity. Assistance may be provided throughout the activity or intermittently. 3-Partial/Moderate Assistance-helper does LESS THAN HALF the effort. [place] lifts, holds or supports trunk or limbs, but provides less than half the effort. 2-Substantial/Maximal Assistance-helper does MORE THAN HALF the effort. [place] lifts or holds trunk or limbs and provides more than half the effort. 4-Thrvlviae-iexams does ALL the effort. Patient does none of the effort to complete the activity. Or, the assistance of 2 or more helpers is required for the patient to complete the activity. If activity was not attempted, code reason: 7-Patient Refused. 9-Not Applicable-not attempted and the patient did not perform the activity before the current illness, exacerbation or injury. 10-Not Attempted due to Environmental Limitations-(lack of equipment, weather restraints, etc.). 88-Not Attempted due to Medical Conditions or Safety Concerns. Weight Bearing Right Lower Extremity: Right Weight Bearing/Tolerated Left Lower Extremity: Left Weight Bearing/Tolerated Gait Training Does the Patient Walk?: No and Walking Goal IS indicated Exercises Supine Ex: Bridging, Ankle pumps, Quad Set, Glut sets, Heel Slides, Short Arc Quads, Straight leg raise Supine Reps: 12 Treatments Pt able to perform all bed exs but denies amb. Call light in hand and all needs met as PT departs. Assessment Current Status: Good Progress Pt requires skilled verbal cues in order to perform all bed exs correctly. PT Retirement Goals Retirement Goals PT Retirement Goals Time Frame: May 25, 2021 Roll Left & Right (QC): 4 Sit to Lying (QC): 4 Lying-Sitting on Side/Bed(QC): 4 Sit to Stand (QC): 4 Chair/Vkn-fz-Bcmfa Xfer(QC): 4 Toilet Transfer (QC): 4 Walk 10 feet (QC): 3 Walk 50ft with 2 Turns (QC): 3 PT Plan Problem List Problem List: Activity Tolerance, Functional Strength Treatment/Plan Treatment Plan: Continue Plan of Care Treatment Plan: Bed Mobility, Education, Functional Activity Марина, Functional Strength, Gait, Safety, Therapeutic Exercise, Transfers Treatment Duration: May 25, 2021 Frequency: 6 times per week Estimated Hrs Per Day: .25 hour per day Patient and/or Family Agrees t: Yes Safety Risks/Education Patient Education: Correct Positioning Teaching Recipient: Patient Teaching Methods: Discussion Response to Teaching: Return Demonstration Time/GCodes Time In: 947 Time Out: 1002 Total Billed Treatment Time: 15 Total Billed Treatment 1, Ex JAN MARRERO DIGITAL RECRUITER May 18, 2021 10:53
[2021-05-18] MEDS: cefTRIAXone 1 GM PRE-MIX 50 ML IV SCH (11:59)
[2021-05-18 12:31] VITALS: BP 163/67
--- NOTE | 2021-05-18 13:46 | Cardiology Progress Note ---
Subjective Date Seen by Provider: May 18, 2021 Time Seen by Provider: 13:45 Subjective/Events-last exam Patient is laying down in bed, feeling well. Denied any chest pain or shortness of breath. No palpitation Review of Systems General: No Chills, No Night Sweats, No Fatigue, No Malaise, No Appetite, No Other HEENT: No Head Aches, No Visual Changes, No Eye Pain, No Ear Pain, No Dysphasia, No Sinus Congestion, No Post Nasal Drip, No Sore Throat, No Other Pulmonary: No Dyspnea, No Cough, No Pleuritic Chest Pain, No Other Cardiovascular: No: Chest Pain, Palpitations, Orthopnea, Paroxysmal Noc. Dyspnea, Edema, Lt Headedness, Other Focused Exam Lactate Level 05/15/21 15:07: Lactic Acid Level 1.06 Objective-Cardiology Exam Last Set of Vital Signs Vital Signs 05/18/21 05/18/21 05/18/21 04:00 12:31 13:00 Temp 36.8 Pulse 84 Resp 20 B/P (MAP) 163/67 (99) Pulse Ox 91 O2 Delivery Room Air O2 Flow Rate 2.00 I&O Intake and Output 05/18/21 00:00 Intake Total 1865 ml Output Total 1200 ml Balance 665 ml Intake Oral 1865 ml Output Urine Total 1200 ml # Voids 4 # Bowel Movements 1 General: Alert, Oriented X3, Cooperative HEENT: Atraumatic, PERRLA Neck: Supple, No JVD, No Thyromegaly Lungs: Clear to Auscultation, Normal Air Movement Heart: Regular Rate, Normal S1, Normal S2, No Murmurs Abdomen: Normal Bowel Sounds, Soft, No Tenderness, No Hepatosplenomegaly, No Masses Extremities: No Clubbing, No Cyanosis, No Edema, Normal Pulses, No Tenderness/Swelling Skin: No Rashes, No Breakdown, No Significant Lesion Neuro: Normal Gait, Normal Speech, Strength at 5/5 X4 Ext, Normal Tone, Sensation Intact Psych/Mental Status: Mental Status NL, Mood NL Results Lab Laboratory Tests 05/18/21 05:36 A/P-Cardiology Admission Diagnosis Congestive heart failure, acute on chronic left ventricular systolic dysfunction, ischemic cardiomyopathy Coronary artery disease Hypertension Hyperlipidemia Assessment/Plan Congestive heart failure, acute on chronic left ventricular systolic dysfunction, ischemic cardiomyopathy. Responded well to diuretics. Continue to monitor 2D echocardiogram was done showing ejection fraction 35 to 40%, segmental wall motion abnormality, left atrial dilatation, pulmonary artery pressure 40 mmHg. Intolerant to beta-blockers with sinus node dysfunction, had 2.4 seconds pause while on beta-blockers in July 2018 Paroxysmal atrial fibrillation, seen during hospitalization in June 2019, maintained on Xarelto Coronary artery disease, history of Non-ST elevation myocardial infarction in May and June 2019 secondary to small vessel disease. Cardiac catheterization May 2019 showing mild ostial left main, mild ostial LAD, patent stent known to be 3 x 24 PARAMJIT placed in January 2018 in [place], mild to moderate diffuse calcification in the coronary system, right coronary artery is chronically occluded with collaterals from the left. Stress test done in July 2020 showing left bundle branch block, fixed defect involving the inferior wall, fixed defect at the base of the anterior wall with mild reversible ischemia at the anterior wall, Viability study in July 2020 showed viable myocardium involving the lateral, inferolateral and inferior wall Cardiac catheterization in August 2020 showing diffuse mild to moderate disease within the left coronary system without significant obstructive disease, patent stent in the proximal LAD, chronic total occlusion of the right coronary artery at the ostium with collateral filling the right from the left system. Peripheral arterial disease, extensive disease, had bilateral ostial SFA occlusion, had angiogram done in January [address] Merino Following for her peripheral arterial disease with Dr. Sanz Hypertension, restart home medication monitor blood pressure Hyperlipidemia, maintained on statin, monitor lipids Diabetes mellitus, followed and managed by primary care physician Chronic kidney disease stage III-IV, probably diabetic nephropathy, followed by primary care physician COPD, followed and managed by primary care physician Tobaccoism, educated on smoking cessation Questionable sleep apnea, maintained on oxygen at night GERMAN ALEJANDRE MD May 18, 2021 13:46
[2021-05-18 15:54] VITALS: BP 94/55
[2021-05-18] MEDS: RIVAROXABAN 20 MG TABLET (XARELTO) PO SCH (17:21)
[2021-05-18 19:17] VITALS: BP_SYST 100; BP_SYST 115; BP_DIAS 37; BP_DIAS 54
[2021-05-19] VITALS (25 sets, daily range): BP systolic 100–144; BP diastolic 49–98
[2021-05-19 05:46] LABS: ABG OXYGEN SATURATION 97 % (94-100); ABG PO2 92 MMHG (79-93); ABG TCO2 29.4 MMOL/L (21.0-31.0)
[2021-05-19 05:50] LABS: BASOPHILS % (AUTO) 0 % (0-10); EOSINOPHILS % (AUTO) 0 % (0-10); HEMATOCRIT 34 % (35-52); HEMOGLOBIN 9.4 g/dL (11.5-16.0); LYMPHOCYTES # (AUTO) 0.3 10^3/uL (1.0-4.0); LYMPHOCYTES % (AUTO) 4 % (12-44); MEAN CORPUSCULAR HEMOGLOBIN 27 pg (25-34); MEAN CORPUSCULAR HGB CONC 28 g/dL (32-36); MEAN CORPUSCULAR VOLUME 96 fL (80-99); MEAN PLATELET VOLUME 10.6 fL (9.0-12.2); MONOCYTES # (AUTO) 0.5 10^3/uL (0.0-1.0); MONOCYTES % (AUTO) 5 % (0-12); NEUTROPHILS # (AUTO) 8.6 10^3/uL (1.8-7.8); NEUTROPHILS % (AUTO) 90 % (42-75); PLATELET COUNT 163 10^3/uL (130-400); WHITE BLOOD COUNT 9.6 10^3/uL (4.3-11.0)
[2021-05-19 05:51] LABS: ABG PCO2 71 MMHG (35-45); ABG PH 7.21 (7.37-7.43); ALLENS TEST YES-POS
[2021-05-19 05:52] LABS: PATIENT TEMP 36.5
[2021-05-19] MEDS: LEVOTHYROXINE 25 MCG (LEVOTHROID) TAB PO SCH (05:57)
[2021-05-19] MEDS: inSUlin ASPART (NovoLOG) 1 UNIT/0.01 ML (CHARGE PER UNIT) SC SCH ×6 (05:57→20:43)
[2021-05-19] MEDS: LEVOTHYROXINE 112 MCG (LEVOTHROID) TAB PO SCH (05:57)
[2021-05-19 05:58] LABS: ALBUMIN 2.9 GM/DL (3.2-4.5)
[2021-05-19 05:59] LABS: POTASSIUM 5.2 MMOL/L (3.6-5.0)
[2021-05-19 06:01] LABS: TOTAL PROTEIN 7.1 GM/DL (6.4-8.2)
[2021-05-19 06:03] LABS: BILIRUBIN,TOTAL 0.5 MG/DL (0.1-1.0)
[2021-05-19 06:05] LABS: CREATININE SERUM 2.17 MG/DL (0.60-1.30)
[2021-05-19] MEDS: FUROSEMIDE 40 MG/4 ML INJ (LASIX) IVP SCH (06:22)
--- NOTE | 2021-05-19 06:25 | Progress Note - Hospitalist ---
Subjective HPI/CC On Admission Date Seen by Provider: May 19, 2021 Time Seen by Provider: 11:30 Chief Complaint: Altered mental status HPI: This is a 65yoWF who presented to [place] ER with Altered Mental Status and Anasarca. She was found to have Heart Failure with an elevated BNP prompting consult with Dr. Willoughby. IV Lasix continues and that has helped her. I did order an ABG due to the altered mental status and CO2 Narcosis so will monitor that. Cardiology says she can go home. She in noncompliant with even getting Echo and Lifevest Maintenance. She appears to not be able to comprehend these issues and will have [employer] reach out for a skilled stay. Gram negative rods on blood culture so we will need to follow-up on that and will place her on empiric Cefepime and obtain a UA as the source. Subjective/Events-last exam Patient was transferred to ICU urgently Significant respiratory insufficiency with CO2 narcosis diagnosed No evidence of any pneumonia or infectious etiology No sepsis noted Patient really needs DNR and hospice as indicated in my notes since admit DPOA still wants full code and everything to be done Patient is end stage Review of Systems Neurological: Confusion Focused Exam Lactate Level 05/19/21 05:55: Lactic Acid Level 0.60 Lactic Acid Level Objective Exam Vital Signs Vital Signs Date Time Temp Pulse Resp B/P (MAP) Pulse Ox O2 Delivery O2 Flow Rate FiO2 05/20/21 06:00 70 11 120/56 (77) 97 NIV Bilevel 30.00 05/20/21 04:00 36.2 05/20/21 04:00 30 Capillary Refill : Less Than 3 Seconds General Appearance: No Apparent Distress, WD/WN, Chronically ill, Obese, Other (Obtunded) Respiratory: No Accessory Muscle Use, No Respiratory Distress, Decreased Breath Sounds, Other (On BiPAP) Cardiovascular: Irregularly Irregular, Tachycardia Results/Procedures Lab Laboratory Tests 05/20/21 04:30 Patient resulted labs reviewed. Assessment/Plan Assessment and Plan Assess & Plan/Chief Complaint Assessment: Altered mental status CO2 narcosis requiring ICU transfer and placed on BiPAP Bacteremia of gram-negative juan c with abnormal UA placed on cefepime and changed to Rocephin due to strep identified End-stage cardiomyopathy ischemic type Atrial fibrillation CAD Diabetes Hypertension Smoker COPD ERIC Chronic kidney disease Apathy with medical noncompliance Plan: Cefepime Oxygen Lasix Monitor kidney function Social work 05/17/2021: Rocephin PT and OT Home health versus hospice at discharge 05/18/2021: Antibiotics Patient is hospice candidate in my medical opinion 05/19/2021: BiPAP ICU Poor prognosis Needs hospice Needs DNR Diagnosis/Problems Diagnosis/Problems (1) CHF exacerbation Onset Date: Unknown Status: Acute (2) Smoker Status: Chronic (3) Presence of stent in coronary artery in patient with coronary artery disease Status: Acute (4) Coronary artery disease without angina pectoris Onset Date: Unknown Status: Chronic (5) Hypothyroidism Onset Date: Unknown Status: Chronic (6) Hypertension Status: Chronic ORIANA DIAZ DO May 19, 2021 06:25
[2021-05-19] MEDS ORDERED: NS (IVPB) 250 ML IV ONE (08:15)
[2021-05-19] MEDS: RT-ALBUTEROL SULF 2.5 MG/3 ML PRE-MIX VIAL INH SCH ×4 (08:28→19:13)
--- NOTE | 2021-05-19 08:37 | Diagnostic Imaging Report ---
EXAMINATION: Chest radiograph, portable AP view. DATE: 05/19/2021 8:27 AM. INDICATION: 65-year-old female, hypoxia. COMPARISON: May 15, 2021. FINDINGS: The heart size and mediastinal contours are unchanged. There is no identified pneumothorax. There is material overlying the patient which does limit the exam. There is limited evaluation of the left lung base given soft tissue overlap. There are mildly prominent interstitial markings which appear similar to the prior study. IMPRESSION: Mildly prominent interstitial markings which may reflect mild interstitial edema, atypical infection, and/or pneumonitis. Dictated by: Dictated on workstation # [id number]
[2021-05-19] MEDS: DOCUSATE SODIUM 100 MG (COLACE) CAP PO SCH ×2 (09:23→21:08)
[2021-05-19] MEDS: lisINopril 20 MG (PRINIVIL) TABLET PO SCH (09:23)
[2021-05-19] MEDS: GABAPENTIN 300 MG (NEURONTIN) CAP PO SCH ×2 (09:23→21:08)
[2021-05-19] MEDS: ISOSORBIDE MONONITRATE 60 MG (IMDUR) TAB PO SCH (09:23)
[2021-05-19] MEDS: ASPIRIN E.C. 81 MG (ECOTRIN) TAB PO SCH (09:23)
[2021-05-19] MEDS: SERTRALINE 100 MG (ZOLOFT) TAB PO SCH (09:24)
--- NOTE | 2021-05-19 09:56 | Cardiology Progress Note ---
Subjective Date Seen by Provider: May 19, 2021 Time Seen by Provider: 09:54 Subjective/Events-last exam Patient was seen in ICU, she is on BiPAP, not opening her eyes. Not responding. Review of Systems General: Other (Unable to provide review of system) Focused Exam Lactate Level 05/19/21 05:55: Lactic Acid Level 0.60 Lactic Acid Level Laboratory Tests Test 05/19/21 05:55 Lactic Acid Level 0.60 MMOL/L (0.50-2.00) Objective-Cardiology Exam Last Set of Vital Signs Vital Signs 05/19/21 05/19/21 08:35 09:00 Temp 36.5 Pulse 64 Resp 13 B/P (MAP) 107/56 (73) Pulse Ox 100 O2 Delivery NIV Bilevel O2 Flow Rate 100.00 I&O Intake and Output 05/19/21 00:00 Intake Total 1490 ml Output Total 1550 ml Balance -60 ml Intake Oral 1340 ml IV Total 150 ml Output Urine Total 1550 ml # Voids 3 # Bowel Movements 1 General: Other (Maintained on BiPAP and not responding) HEENT: Atraumatic Neck: Supple, No Thyromegaly Lungs: Normal Air Movement, Other (Bilateral rhonchi) Heart: Normal S1, Normal S2, No Murmurs, Other (Bradycardia) Abdomen: Normal Bowel Sounds, Soft, No Tenderness, No Hepatosplenomegaly, No Masses Extremities: No Clubbing, No Cyanosis, No Edema, Normal Pulses, No Tenderness/ Swelling Skin: No Rashes, No Breakdown, No Significant Lesion Neuro: Other (Not following commands) Psych/Mental Status: Other (Not answering questions) Results Lab Laboratory Tests 05/19/21 05:35 A/P-Cardiology Admission Diagnosis Congestive heart failure, acute on chronic left ventricular systolic dysfunction, ischemic cardiomyopathy Coronary artery disease Hypertension Hyperlipidemia Assessment/Plan Acute respiratory failure, CO2 narcosis, maintained on BiPAP Transfer to ICU, managed by medical team Overall poor prognosis Bradycardia, paroxysmal atrial fibrillation. First episode diagnosed in June 2019, has been maintained on Xarelto. Currently having episodes of bradycardia, probably due to respiratory failure. Has underlying history of sinus node dysfunction with long pauses, has been intolerant to beta-blockers in the past. Congestive heart failure, acute on chronic left ventricular systolic dysfunction, ischemic cardiomyopathy. Responded well to diuretics. Continue to monitor 2D echocardiogram was done showing ejection fraction 35 to 40%, segmental wall motion abnormality, left atrial dilatation, pulmonary artery pressure 40 mmHg. Intolerant to beta-blockers with sinus node dysfunction, had 2.4 seconds pause while on beta-blockers in July 2018 Coronary artery disease, history of Non-ST elevation myocardial infarction in May and June 2019 secondary to small vessel disease. Cardiac catheterization May 2019 showing mild ostial left main, mild ostial LAD, patent stent known to be 3 x 24 PARAMJIT placed in January 2018 in [place], mild to moderate diffuse calcification in the coronary system, right coronary artery is chronically occluded with collaterals from the left. Stress test done in July 2020 showing left bundle branch block, fixed defect involving the inferior wall, fixed defect at the base of the anterior wall with mild reversible ischemia at the anterior wall, Viability study in July 2020 showed viable myocardium involving the lateral, inferolateral and inferior wall Cardiac catheterization in August 2020 showing diffuse mild to moderate disease within the left coronary system without significant obstructive disease, patent stent in the proximal LAD, chronic total occlusion of the right coronary artery at the ostium with collateral filling the right from the left system. Peripheral arterial disease, extensive disease, had bilateral ostial SFA occlusion, had angiogram done in January [address] Merino Following for her peripheral arterial disease with Dr. Sanz Hypertension, restart home medication monitor blood pressure Hyperlipidemia, maintained on statin, monitor lipids Diabetes mellitus, followed and managed by primary care physician Chronic kidney disease stage III-IV, probably diabetic nephropathy, followed by primary care physician COPD, followed and managed by primary care physician Tobaccoism, educated on smoking cessation Questionable sleep apnea, maintained on oxygen at night GERMAN ALEJANDRE MD May 19, 2021 09:56
[2021-05-19 10:03] LABS: ABG BASE EXCESS 1.7 MMOL/L (-2.5-2.5); ABG OXYGEN SATURATION 45 % (94-100); ABG TCO2 32.1 MMOL/L (21.0-31.0)
[2021-05-19 10:05] LABS: ABG PCO2 81 MMHG (35-45); ABG PH 7.18 (7.37-7.43); ABG PO2 30 MMHG (79-93); INSPIRED O2 100%
[2021-05-19 10:06] LABS: PATIENT TEMP 36.2; VENTILATOR NO
--- NOTE | 2021-05-19 10:26 | Tele-ICU Progress Note ---
Progress Note video rounds completed 65 y/o female with hypoxemic respiratory failure and CHF transferred to ICU for AMS and hypoxemia Now on BIPAP ABG obtained and likely venous but show severe hypercarbia increasing BIPAP from 26/08 to 27/02 MAy need to be intubated if no improvement Focused Exam Lactate Level 05/19/21 05:55: Lactic Acid Level 0.60 Height, Weight, BMI Height: 5'2.00" Weight: 179lbs. 5.0oz. [id number]; 40.75 BMI Method:Stated Labs Laboratory Tests 05/19/21 05:35 Results Labs Labs Laboratory Tests 05/18/21 11:43: Glucometer 113H 05/18/21 15:57: Glucometer 190H 05/18/21 20:21: Glucometer 126H 05/19/21 04:37: Glucometer 146H 05/19/21 05:35: White Blood Count 9.6, Red Blood Count 3.55L, Hemoglobin 9.4L, Hematocrit 34L, Mean Corpuscular Volume 96, Mean Corpuscular Hemoglobin 27, Mean Corpuscular Hemoglobin Concent 28L, Red Cell Distribution Width 17.5H, Platelet Count 163, Mean Platelet Volume 10.6, Immature Granulocyte % (Auto) 1, Neutrophils (%) (Auto) 90H, Lymphocytes (%) (Auto) 4L, Monocytes (%) (Auto) 5, Eosinophils (%) (Auto) 0, Basophils (%) (Auto) 0, Neutrophils # (Auto) 8.6H, Lymphocytes # (Auto) 0.3L, Monocytes # (Auto) 0.5, Eosinophils # (Auto) 0.0, Basophils # (Auto) 0.0, Immature Granulocyte # (Auto) 0.1, Sodium Level 137, Potassium Level 5.2H, Chloride Level 103, Carbon Dioxide Level 22, Anion Gap 12, Blood Urea Nitrogen 31H, Creatinine 2.17H, Estimat Glomerular Filtration Rate 25, BUN/Creatinine Ratio 14, Glucose Level 164H, Calcium Level 8.0L, Corrected Calcium 8.9, Total Bilirubin 0.5, Aspartate Amino Transf (AST/SGOT) 23, Alanine Aminotransferase (ALT/SGPT) 9, Alkaline Phosphatase 72, Total Protein 7.1, Albumin 2.9L 05/19/21 05:38: Blood Gas Puncture Site LR, Blood Gas Patient Temperature 36.5, Arterial Blood pH 7.21*L, Arterial Blood Partial Pressure CO2 71*H, Arterial Blood Partial Pressure O2 92, Arterial Blood HCO3 27, Arterial Blood Total CO2 29.4, Arterial Blood Oxygen Saturation 97, Arterial Blood Base Excess 0.0, [place] Test YES-POS, Blood Gas Ventilator Setting NA, Blood Gas Inspired Oxygen UNK 05/19/21 05:55: Lactic Acid Level 0.60, Ammonia 32, Procalcitonin 0.14H 05/19/21 08:42: Blood Gas Puncture Site NA, Blood Gas Patient Temperature 36.2, Arterial Blood pH 7.18*L, Arterial Blood Partial Pressure CO2 81*H, Arterial Blood Partial Pressure O2 30*L, Arterial Blood HCO3 30H, Arterial Blood Total CO2 32.1H, Arterial Blood Oxygen Saturation 45L, Arterial Blood Base Excess 1.7, [place] Test NA, Blood Gas Ventilator Setting NO, Blood Gas Inspired Oxygen 100% Microbiology 05/15/21 Blood Culture - Preliminary, Resulted No growth 05/15/21 Gram Stain - Final, Complete 05/15/21 Wound Culture - Final, Complete Strep agalactiae Group B GEOFF HERNANDEZ MD May 19, 2021 10:26
[2021-05-19 11:10] LABS: ABG BASE EXCESS 0.7 MMOL/L (-2.5-2.5); ABG OXYGEN SATURATION 100 % (94-100); ABG PCO2 58 MMHG (35-45); ABG PO2 248 MMHG (79-93); ABG TCO2 29.1 MMOL/L (21.0-31.0)
[2021-05-19 11:12] LABS: ABG PH 7.28 (7.37-7.43); ALLENS TEST YES-POS
[2021-05-19 11:13] LABS: INSPIRED O2 100%; PATIENT TEMP 35.1; VENTILATOR NO
[2021-05-19] MEDS ORDERED: NORMAL SALINE 250 ML ONE (11:22)
[2021-05-19] MEDS: cefTRIAXone 1 GM PRE-MIX 50 ML IV SCH (11:42)
[2021-05-19] MEDS: NS IV 1000 ML 1,000 ML IV SCH ×2 (11:44→21:09)
[2021-05-19] MEDS: MICONAZOLE 2% POWDER (DESENEX AF) 90 GM TOP SCH ×2 (11:44→21:09)
[2021-05-19] MEDS: RIVAROXABAN 20 MG TABLET (XARELTO) PO SCH (17:25)
[2021-05-20] VITALS (25 sets, daily range): BP systolic 86–146; BP diastolic 49–83
[2021-05-20 04:51] LABS: BASOPHILS % (AUTO) 0 % (0-10); EOSINOPHILS # (AUTO) 0.1 10^3/uL (0.0-0.3); EOSINOPHILS % (AUTO) 2 % (0-10); HEMATOCRIT 30 % (35-52); HEMOGLOBIN 8.4 g/dL (11.5-16.0); LYMPHOCYTES # (AUTO) 0.5 10^3/uL (1.0-4.0); LYMPHOCYTES % (AUTO) 7 % (12-44); MEAN CORPUSCULAR HEMOGLOBIN 27 pg (25-34); MEAN CORPUSCULAR HGB CONC 28 g/dL (32-36); MEAN CORPUSCULAR VOLUME 94 fL (80-99); MEAN PLATELET VOLUME 11.4 fL (9.0-12.2); MONOCYTES # (AUTO) 0.5 10^3/uL (0.0-1.0); MONOCYTES % (AUTO) 7 % (0-12); NEUTROPHILS # (AUTO) 5.7 10^3/uL (1.8-7.8); NEUTROPHILS % (AUTO) 84 % (42-75); PLATELET COUNT 118 10^3/uL (130-400); WHITE BLOOD COUNT 6.8 10^3/uL (4.3-11.0)
[2021-05-20 05:01] LABS: ALBUMIN 2.5 GM/DL (3.2-4.5); POTASSIUM 4.8 MMOL/L (3.6-5.0)
[2021-05-20 05:02] LABS: CALCIUM 7.8 MG/DL (8.5-10.1)
[2021-05-20 05:03] LABS: TOTAL PROTEIN 6.2 GM/DL (6.4-8.2)
[2021-05-20 05:05] LABS: BILIRUBIN,TOTAL 0.3 MG/DL (0.1-1.0)
[2021-05-20 05:07] LABS: CREATININE SERUM 2.52 MG/DL (0.60-1.30)
[2021-05-20 05:09] LABS: MAGNESIUM 1.9 MG/DL (1.6-2.4)
[2021-05-20] MEDS: POTASSIUM CL 10MEQ/50ML IVPB 50 ML IV SCH (06:19)
[2021-05-20] MEDS: KCL 20 MEQ TAB (K-DUR) PO SCH (06:20)
[2021-05-20] MEDS: MAGNESIUM 1 GM/100 ML IVPB 100 ML IV SCH (06:20)
[2021-05-20] MEDS: LEVOTHYROXINE 25 MCG (LEVOTHROID) TAB PO SCH (06:27)
[2021-05-20] MEDS: LEVOTHYROXINE 112 MCG (LEVOTHROID) TAB PO SCH (06:27)
[2021-05-20] MEDS: inSUlin ASPART (NovoLOG) 1 UNIT/0.01 ML (CHARGE PER UNIT) SC SCH ×6 (06:28→22:25)
--- NOTE | 2021-05-20 06:51 | Occ Therapy Progress Note ---
Therapy Progress Note Due to decline in medical status, OT to discharge pt. Pt will need new orders to initiate OT services when able to actively participate in skilled therapy. PARVEEN MC May 20, 2021 06:51
--- NOTE | 2021-05-20 07:43 | Physical Therapy Progress Note ---
Therapy Progress Note Patient transferred to ICU for AMS and hypoxemia. PT will require new order to continue with skilled PT. LARY JOYNER PT May 20, 2021 07:43
[2021-05-20] MEDS: DOCUSATE SODIUM 100 MG (COLACE) CAP PO SCH ×2 (08:29→22:24)
[2021-05-20] MEDS: GABAPENTIN 300 MG (NEURONTIN) CAP PO SCH ×2 (08:29→21:00)
[2021-05-20] MEDS: ASPIRIN E.C. 81 MG (ECOTRIN) TAB PO SCH (08:30)
[2021-05-20] MEDS: SERTRALINE 100 MG (ZOLOFT) TAB PO SCH (08:35)
[2021-05-20] MEDS: ISOSORBIDE MONONITRATE 60 MG (IMDUR) TAB PO SCH (08:35)
[2021-05-20] MEDS: lisINopril 20 MG (PRINIVIL) TABLET PO SCH (08:35)
[2021-05-20] MEDS: MICONAZOLE 2% POWDER (DESENEX AF) 90 GM TOP SCH ×2 (08:36→21:00)
--- NOTE | 2021-05-20 09:02 | Wound Care Assessment ---
Wound Care Assessment Date Seen by Provider: May 20, 2021 Time Seen by Provider: 08:57 Chief Complaint 1. R Medial Yao Ulcer 2. R Knee Abrasion secondary to fall 3. L Lateral Malleolus Wound HPI 65yo F with history of T2DM, HTN, smoking, anemia of renal disease, PAD, PVD, obesity, CO2 narcosis, CHF, chronic kidney disease (stage 4) with anasarca consulted to wound care for multiple wounds of variable chronicity to RLE. Pt reported these wounds first noticed in March and have not been healing. Purulent drainage from knee. Culture was obtained and she is on IV antibiotics currently. Pt is in hospital for heart failure and was given IV lasix with great diuresis. She has required BiPAP. Patient does not appear to be aware of her condition upon admission (stating she did not have swelling in extremities). She is a poor historian and does not recall h/o PAD (past arterial doppler from 2018). I am suspicious that her PAD is also contributing to her poor LE wound healing as well. Pt albumin level at 2.5 and will need to incorporate more protein in diet for healing. Pt will need to consider smoking cessation. Denies any chest pain, fever, chills, nausea, vomiting, or diarrhea. She does have a reported h/o noncompliance in numerous aspects of care. Past Medical History: Admits Diabetes Type II, Admits Heart Disease, Admits Peripheral Artery Disease PEM, stage 4 CKD, DM2, anemia of renal disease, PAD, PVD, CHF, tobaccoism, CO2 narcosis Smoking Status: Current Everyday Smoker (1-2 ppd) Alcohol Use: Denies Use Review of Systems General: No Chills, No Night Sweats, No Fatigue HEENT: No Head Aches, No Visual Changes, No Ear Pain Pulmonary: No Dyspnea, No Cough Cardiovascular: Edema (L UE); No: Chest Pain, Palpitations Gastrointestinal: No: Nausea, Vomiting, Diarrhea Genitourinary: No Dysuria, No Frequency, No Incontinence Musculoskeletal: No: neck pain, shoulder pain, arm pain Neurological: No: Change in speech, Confusion, Seizures Other systems Patient is poor historian making ROS difficult Exam Vital Signs Date Time Temp Pulse Resp B/P (MAP) Pulse Ox O2 Delivery O2 Flow Rate FiO2 05/20/21 07:37 36.8 05/20/21 07:00 78 05/20/21 07:00 12 136/66 (89) 97 Nasal Cannula 4.00 05/20/21 04:00 30 Capillary Refill : Less Than 3 Seconds General Appearance: mild distress (SOA with conversation), obese HEENT: PERRL/EOMI, normal ENT inspection Neck: non-tender, supple Cardiovascular: no edema (wrinkles in all 4 extremities indicative of recent edema with diuresis) Respiratory: chest non-tender, crackles Gastrointestinal: non tender, soft Back: normal inspection Extremities: no pedal edema Neurologic/Psychiatric: alert, normal mood/affect, oriented x 3, other (Poor hi storian) Skin: normal color, warm/dry, pallor Skin Problem Location: lower extremities 1. R. Knee: approximately 1x1.5x0.2cm. The epithelialization is none, there is no tunneling or undermining, drainage is large and purulent, granulation is none, necrotic is large and slough, wound margins show epibole. 2. R. ankle: approximately 1x1x0.2 cm. The epithelialization is none, there is no tunneling or undermining, drainage is medium and serosanguinous, granulation is medium and pink, necrotic is medium and slough, wound margins show epibole 3. Multiple stable eschars on toes/ankle Results Laboratory Tests 05/19/21 08:42: Blood Gas Puncture Site NA, Blood Gas Patient Temperature 36.2, Arterial Blood pH 7.18*L, Arterial Blood Partial Pressure CO2 81*H, Arterial Blood Partial Pressure O2 30*L, Arterial Blood HCO3 30H, Arterial Blood Total CO2 32.1H, Arterial Blood Oxygen Saturation 45L, Arterial Blood Base Excess 1.7, [place] Test NA, Blood Gas Ventilator Setting NO, Blood Gas Inspired Oxygen 100% 05/19/21 11:00: Blood Gas Puncture Site LT RAD, Blood Gas Patient Temperature 35.1, Arterial Blood pH 7.28*L, Arterial Blood Partial Pressure CO2 58H, Arterial Blood Partial Pressure O2 248H, Arterial Blood HCO3 27, Arterial Blood Total CO2 29.1, Arterial Blood Oxygen Saturation 100, Arterial Blood Base Excess 0.7, [place] Test YES-POS, Blood Gas Ventilator Setting NO, Blood Gas Inspired Oxygen 100% 05/19/21 11:47: Glucometer 94 05/19/21 16:10: Glucometer 90 05/19/21 20:41: Glucometer 143H 05/20/21 04:30: White Blood Count 6.8, Red Blood Count 3.14L, Hemoglobin 8.4L, Hematocrit 30L, Mean Corpuscular Volume 94, Mean Corpuscular Hemoglobin 27, Mean Corpuscular Hemoglobin Concent 28L, Red Cell Distribution Width 17.3H, Platelet Count 118L, Mean Platelet Volume 11.4, Immature Granulocyte % (Auto) 0, Neutrophils (%) (Auto) 84H, Lymphocytes (%) (Auto) 7L, Monocytes (%) (Auto) 7, Eosinophils (%) (Auto) 2, Basophils (%) (Auto) 0, Neutrophils # (Auto) 5.7, Lymphocytes # (Auto) 0.5L, Monocytes # (Auto) 0.5, Eosinophils # (Auto) 0.1, Basophils # (Auto) 0.0, Immature Granulocyte # (Auto) 0.0, Percent Immature Platelet Fraction 5.2, Sodium Level 139, Potassium Level 4.8, Chloride Level 104, Carbon Dioxide Level 22, Anion Gap 13, Blood Urea Nitrogen 36H, Creatinine 2.52H, Estimat Glomerular Filtration Rate 21, BUN/Creatinine Ratio 14, Glucose Level 199H, Calcium Level 7.8L, Corrected Calcium 9.0, Magnesium Level 1.9, Total Bilirubin 0.3, Aspartate Amino Transf (AST/SGOT) 22, Alanine Aminotransferase (ALT/SGPT) 9, Alkaline Phosphatase 60, Total Protein 6.2L, Albumin 2.5L 05/20/21 08:10: Glucometer 175H Microbiology 05/15/21 Blood Culture - Preliminary, Resulted No growth 05/15/21 Gram Stain - Final, Complete 05/15/21 Wound Culture - Final, Complete Strep agalactiae Group B Assessment/Plan/Dx Assessment: 1. R Medial malleolus ulcer (likely arterial in nature)-full thickness 2. R Knee ulcer (arterial and infection)- full thickness 3. L Lateral Malleolus Wound- stable eschar 4. T2DM 5. Smoking 1-2ppd 6. Recurrent Falls 7. PEM 8. CKD stage 4 9. Heart Failure - resolved and cardiology cleared to go home Plan: 1. Cleanse draining ulcers with vashe or wound cleanser daily. Cover wound bed with silver alginate hydrofiber and bordered foam dressings and change daily 2. [place] stable eschars with betadine liberally twice daily, air dry and cover with sock 3. Patient wound warrant from peripheral arterial evaluation when stable as outpatient in future 4. Patient with many poorly controlled medical ailments that will complicate her current wound healing. Diabetes, CHF, PAD, respiratory status, renal function, nutrition, smoking status all need improvement to heal wounds 5. Agree with targeted IV antibiotics Supervisory-Addendum Brief Verification & Attestation Participated in pt care: history, MDM, physical Personally performed: exam, history, MDM, supervision of care Care discussed with: Medical Student Procedures: n/a Results interpretation: Verified all documentation Modified note myself and completed orders HAM JIMENEZ May 20, 2021 09:02 DEEP REINA MD May 20, 2021 11:17
[2021-05-20] MEDS: NS IV 1000 ML 1,000 ML IV SCH ×2 (09:15→22:25)
[2021-05-20] MEDS: RT-ALBUTEROL SULF 2.5 MG/3 ML PRE-MIX VIAL INH SCH ×3 (09:44→21:17)
--- NOTE | 2021-05-20 10:09 | Tele-ICU Progress Note ---
Subjective Date Seen by a Provider: May 20, 2021 Time Seen by a Provider: 10:09 Sepsis Event Evaluation Height, Weight, BMI Height: 5'2.00" Weight: 179lbs. 5.0oz. 81.752945yu; 40.75 BMI Method:Stated Focused Exam Lactate Level 05/19/21 05:55: Lactic Acid Level 0.60 Exam Exam Patient acknowledged, consented, and participated in this virtual visit which was conducted using real time audio/video Vital Signs Date Time Temp Pulse Resp B/P (MAP) Pulse Ox O2 Delivery O2 Flow Rate FiO2 05/20/21 09:44 98 Nasal Cannula 2.00 05/20/21 09:00 76 10 129/83 (98) 99 Nasal Cannula 4.00 05/20/21 08:39 Nasal Cannula 4.00 05/20/21 08:00 79 9 97 Nasal Cannula 4.00 05/20/21 08:00 Nasal Cannula 4.00 05/20/21 07:37 36.8 05/20/21 07:00 78 05/20/21 07:00 81 12 136/66 (89) 97 Nasal Cannula 4.00 05/20/21 06:54 81 13 98 Nasal Cannula 4.00 05/20/21 06:00 70 11 120/56 (77) 97 NIV Bilevel 30.00 05/20/21 05:00 73 10 141/70 (93) 100 NIV Bilevel 30.00 05/20/21 04:00 73 11 126/58 (80) 97 NIV Bilevel 30.00 05/20/21 04:00 36.2 05/20/21 04:00 NIV Bilevel 30 05/20/21 03:00 74 136/63 (87) 98 NIV Bilevel 30.00 05/20/21 02:25 75 20 97 24.00 05/20/21 02:00 72 117/49 (71) 96 NIV Bilevel 30.00 05/20/21 01:00 76 131/59 (83) 96 NIV Bilevel 30.00 05/20/21 01:00 76 05/20/21 00:00 71 110/49 (69) 96 NIV Bilevel 30.00 05/19/21 23:15 77 25 115/73 (87) 93 NIV Bilevel 30.00 05/19/21 23:00 78 10 115/55 (75) 86 NIV Bilevel 24.00 05/19/21 22:54 36.7 05/19/21 22:00 76 22 118/50 (72) 88 NIV Bilevel 24.00 05/19/21 21:52 77 20 93 24.00 05/19/21 21:00 81 11 121/56 (77) 90 Nasal Cannula 2.00 05/19/21 20:00 36.5 05/19/21 20:00 80 125/62 (83) 93 Nasal Cannula 2.00 05/19/21 20:00 Nasal Cannula 2.00 05/19/21 19:13 99 Nasal Cannula 2.00 05/19/21 19:00 82 13 140/69 (92) 90 Nasal Cannula 2.00 05/19/21 19:00 82 05/19/21 19:00 73 05/19/21 18:00 73 11 133/71 (91) 99 Nasal Cannula 2.00 05/19/21 17:57 93 Nasal Cannula 2.00 05/19/21 17:00 73 9 144/71 (95) 100 NIV Bilevel 30.00 05/19/21 16:45 NIV Bilevel 30 05/19/21 16:17 37.5 05/19/21 16:00 65 117/64 (81) 100 NIV Bilevel 30.00 05/19/21 15:00 61 18 133/98 (110) 100 NIV Bilevel 30.00 05/19/21 14:42 63 18 100 25.00 05/19/21 14:00 62 118/62 (80) 100 NIV Bilevel 30.00 05/19/21 13:00 72 05/19/21 13:00 56 14 108/59 (75) 94 NIV Bilevel 30.00 05/19/21 12:30 36.3 05/19/21 12:00 NIV Bilevel 30 05/19/21 12:00 68 16 100/49 (66) 99 NIV Bilevel 30.00 05/19/21 11:55 92 NIV Bilevel 30.00 05/19/21 11:00 68 21 116/54 (74) 97 NIV Bilevel 100.00 05/19/21 10:17 68 22 100.00 I & O 05/20/21 07:00 Intake Total 800 ml Output Total 700 ml Balance 100 ml Height & Weight Height: 5'2.00" Weight: 179lbs. 5.0oz. 81.657057mx; 40.75 BMI Method:Stated General Appearance: No Apparent Distress, WD/WN, Chronically ill, Obese, Other (Obtunded) HEENT: PERRL/EOMI, Other (Mucous membranes dry) Neck: Non Tender, Supple Respiratory: No Accessory Muscle Use, No Respiratory Distress, Decreased Breath Sounds, Other (On BiPAP) Cardiovascular: Irregularly Irregular, Tachycardia Capillary Refill: Less Than 3 Seconds Gastrointestinal: non tender, soft Extremity: Non Tender, Pedal Edema (3+ bilateral lower extremities pitting), Other (Ulceration on the right ankle with dressing on the ankle) Neurologic/Psychiatric: Alert, Oriented x3, Depressed Affect Results Lab Laboratory Tests 05/19/21 05:35 05/20/21 04:30 Assessment/Plan Assessment/Plan (Tele-ICU Physician , Progress Note ) Available chart/ vitals / labs / Images reviewed Video assessment done using teleICU camera, rest of exam as per RN Discussed with RN , EXAM PER RN Events overnight : Afebrile FiO2 - 3l I/O = even Drips: Pressors: , hemodynamically stable Consultants: cards Hospital course: (05/15) 65F Admitted to floor with CHF and possible cellulitis. (05/19) To ICU for Bipap d/t AMS and hypoxemia. Hypercapnic. 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 ICM , CAD - diuresis on hold - await card eval -EF 35 to 40%, RVSP 40 mmHg. 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 Discussed with RN to reach out if any questions or concerns A total of 33 minutes of critical care time was devoted to this patient today, required to treat and/or prevent further deterioration of critical care condition ( as above) . STUART BRINK MD May 20, 2021 10:09
[2021-05-20] MEDS ORDERED: NS IV 1000 ML 1,000 ML IV ONE ×3 (10:15→18:00)
--- NOTE | 2021-05-20 11:10 | Cardiology Progress Note ---
Subjective Date Seen by Provider: May 20, 2021 Time Seen by Provider: 11:08 Subjective/Events-last exam Patient was seen today, she is sitting up in a chair, feeling better. No new complaint Review of Systems General: No Chills, No Night Sweats, No Fatigue, No Malaise, No Appetite, No Other HEENT: No Head Aches, No Visual Changes, No Eye Pain, No Ear Pain, No Dysph inocencio, No Sinus Congestion, No Post Nasal Drip, No Sore Throat, No Other Pulmonary: No Dyspnea, No Cough, No Pleuritic Chest Pain, No Other Cardiovascular: No: Chest Pain, Palpitations, Orthopnea, Paroxysmal Noc. Dyspnea, Edema, Lt Headedness, Other Focused Exam Lactate Level 05/19/21 05:55: Lactic Acid Level 0.60 Objective-Cardiology Exam Last Set of Vital Signs Vital Signs 05/20/21 05/20/21 05/20/21 04:00 07:37 10:00 Temp 36.8 Pulse 78 Resp 9 B/P (MAP) 128/49 (75) Pulse Ox 97 O2 Delivery Nasal Cannula O2 Flow Rate 2.00 FiO2 30 I&O Intake and Output 05/20/21 00:00 Intake Total 600 ml Output Total 575 ml Balance 25 ml Intake Oral 300 ml IV Total 300 ml Output Urine Total 575 ml # Voids 1 General: Alert, Oriented X3, Cooperative HEENT: Atraumatic Neck: Supple, No Thyromegaly Lungs: Normal Air Movement, Other (Bilateral rhonchi) Heart: Normal S1, Normal S2, No Murmurs, Other (Bradycardia) Abdomen: Normal Bowel Sounds, Soft, No Tenderness, No Hepatosplenomegaly, No Masses Extremities: No Clubbing, No Cyanosis, No Edema, Normal Pulses, No Tenderness/Swelling Skin: No Rashes, No Breakdown, No Significant Lesion Neuro: Normal Speech, Sensation Intact Psych/Mental Status: Mental Status NL, Mood NL Results Lab Laboratory Tests 05/20/21 04:30 A/P-Cardiology Admission Diagnosis Congestive heart failure, acute on chronic left ventricular systolic dysfunction, ischemic cardiomyopathy Coronary artery disease Hypertension Hyperlipidemia Assessment/Plan Status post acute respiratory failure, CO2 narcosis, better today, back to nasal cannula. Patient has returned to baseline. Overall poor prognosis, followed and managed by primary care physician. Bradycardia, paroxysmal atrial fibrillation. First episode diagnosed in June 2019, has been maintained on Xarelto. Currently having episodes of bradycardia, probably due to respiratory failure. Has underlying history of sinus node dysfunction with long pauses, has been int olerant to beta-blockers in the past. Congestive heart failure, acute on chronic left ventricular systolic dysfunction, ischemic cardiomyopathy. Responded well to diuretics. Continue to monitor 2D echocardiogram was done showing ejection fraction 35 to 40%, segmental wall motion abnormality, left atrial dilatation, pulmonary artery pressure 40 mmHg. Intolerant to beta-blockers with sinus node dysfunction, had 2.4 seconds pause while on beta-blockers in July 2018 Coronary artery disease, history of Non-ST elevation myocardial infarction in May and June 2019 secondary to small vessel disease. Cardiac catheterization May 2019 showing mild ostial left main, mild ostial LAD, patent stent known to be 3 x 24 PARAMJIT placed in January 2018 in [place], mild to moderate diffuse calcification in the coronary system, right coronary artery is chronically occluded with collaterals from the left. Stress test done in July 2020 showing left bundle branch block, fixed defect involving the inferior wall, fixed defect at the base of the anterior wall with mild reversible ischemia at the anterior wall, Viability study in July 2020 showed viable myocardium involving the lateral, inferolateral and inferior wall Cardiac catheterization in August 2020 showing diffuse mild to moderate disease within the left coronary system without significant obstructive disease, patent stent in the proximal LAD, chronic total occlusion of the right coronary artery at the ostium with collateral filling the right from the left system. Peripheral arterial disease, extensive disease, had bilateral ostial SFA occlusi on, had angiogram done in January [address] Merino Following for her peripheral arterial disease with Dr. Sanz Hypertension, restart home medication monitor blood pressure Hyperlipidemia, maintained on statin, monitor lipids Diabetes mellitus, followed and managed by primary care physician Chronic kidney disease stage III-IV, probably diabetic nephropathy, followed by primary care physician COPD, followed and managed by primary care physician Tobaccoism, educated on smoking cessation Questionable sleep apnea, maintained on oxygen at night GERMAN ALEJANDRE MD May 20, 2021 11:10
[2021-05-20] MEDS: cefTRIAXone 1 GM PRE-MIX 50 ML IV SCH (11:36)
[2021-05-20] MEDS ORDERED: NS (IVPB) 100 ML ONE (14:35)
[2021-05-20] MEDS: HYPOCHLOROUS ACID/NaCl (VASHE) 250 ML IR SCH (16:56)
[2021-05-20 17:29] LABS: POTASSIUM 4.6 MMOL/L (3.6-5.0)
[2021-05-20 17:30] LABS: CALCIUM 7.7 MG/DL (8.5-10.1)
[2021-05-20 17:35] LABS: CREATININE SERUM 2.62 MG/DL (0.60-1.30)
[2021-05-20] MEDS: RIVAROXABAN 20 MG TABLET (XARELTO) PO SCH (17:35)
[2021-05-20] MEDS ORDERED: ALBUMIN 5% 12.5 GM/250 ML 250 ML IV ONE ×2 (17:56→18:00)
--- NOTE | 2021-05-20 20:31 | Progress Note ---
Subjective Subjective/Events-last exam Patient was able to titrate to NC this AM. States that she does not remember why she is in the ICU. Went thru hospital course. Patient states that she is more swollen then her normal. having some mild increased shortness of breath. Review of Systems Pulmonary: Dyspnea Cardiovascular: Edema Neurological: Weakness, Incoordination Focused Exam Lactate Level 05/19/21 05:55: Lactic Acid Level 0.60 Objective Exam Last Set of Vital Signs Vital Signs Date Time Temp Pulse Resp B/P (MAP) Pulse Ox O2 Delivery O2 Flow Rate FiO2 05/20/21 18:00 81 131/63 (85) 92 Nasal Cannula 2.00 05/20/21 16:15 36.6 05/20/21 13:00 17 05/20/21 04:00 30 Capillary Refill : Less Than 3 Seconds I&O Intake and Output 05/20/21 00:00 Intake Total 600 ml Output Total 575 ml Balance 25 ml Intake Oral 300 ml IV Total 300 ml Output Urine Total 575 ml # Voids 1 General: Alert, Oriented X3, Mild Distress (conversational dypsnea) Lungs: Other (diminished breath sounds, increased work of breathing with minimal activity) Heart: Regular Rate Abdomen: Other (anasarca up to breasts bilaterally) Extremities: Other (3+ pitting edema) Neuro: Normal Speech Results/Procedures Lab Laboratory Tests 05/19/21 20:41: Glucometer 143H 05/20/21 04:30: White Blood Count 6.8, Red Blood Count 3.14L, Hemoglobin 8.4L, Hematocrit 30L, Mean Corpuscular Volume 94, Mean Corpuscular Hemoglobin 27, Mean Corpuscular Hemoglobin Concent 28L, Red Cell Distribution Width 17.3H, Platelet Count 118L, Mean Platelet Volume 11.4, Immature Granulocyte % (Auto) 0, Neutrophils (%) (Auto) 84H, Lymphocytes (%) (Auto) 7L, Monocytes (%) (Auto) 7, Eosinophils (%) (Auto) 2, Basophils (%) (Auto) 0, Neutrophils # (Auto) 5.7, Lymphocytes # (Auto) 0.5L, Monocytes # (Auto) 0.5, Eosinophils # (Auto) 0.1, Basophils # (Auto) 0.0, Immature Granulocyte # (Auto) 0.0, Percent Immature Platelet Fraction 5.2, Sodium Level 139, Potassium Level 4.8, Chloride Level 104, Carbon Dioxide Level 22, Anion Gap 13, Blood Urea Nitrogen 36H, Creatinine 2.52H, Estimat Glomerular Filtration Rate 21, BUN/Creatinine Ratio 14, Glucose Level 199H, Calcium Level 7.8L, Corrected Calcium 9.0, Magnesium Level 1.9, Total Bilirubin 0.3, Aspartate Amino Transf (AST/SGOT) 22, Alanine Aminotransferase (ALT/SGPT) 9, Alkaline Phosphatase 60, Total Protein 6.2L, Albumin 2.5L 05/20/21 08:10: Glucometer 175H 05/20/21 11:04: Glucometer 158H 05/20/21 16:00: Glucometer 146H 05/20/21 17:10: Sodium Level 139, Potassium Level 4.6, Chloride Level 104, Carbon Dioxide Level 23, Anion Gap 12, Blood Urea Nitrogen 38H, Creatinine 2.62H, Estimat Glomerular Filtration Rate 20, BUN/Creatinine Ratio 15, Glucose Level 123H, Calcium Level 7.7L 05/20/21 18:22: Glucometer 156H Microbiology 05/15/21 Blood Culture - Preliminary, Resulted No growth 05/15/21 Gram Stain - Final, Complete 05/15/21 Wound Culture - Final, Complete Strep agalactiae Group B Assessment/Plan Assessment/Plan (1) Acute and chronic respiratory failure with hypoxia Status: Acute Assessment & Plan: 05/20: Bipap dependent at night, Will need continuous oxygen at d/c (2) Acute on chronic combined systolic and diastolic congestive heart failure Status: Acute Assessment & Plan: 05/20: Cardiology consulted and managing (3) Acute kidney injury superimposed on chronic kidney disease Status: Acute Assessment & Plan: 05/20: Cr continues to increase, patient is 3rd spacing and has severe anasarca up to breasts (4) Anasarca Status: Acute (5) Primary hypertension Onset Date: Unknown Status: Chronic Assessment & Plan: 05/20: Continue home meds (6) Coronary artery disease without angina pectoris Onset Date: Unknown Status: Chronic (7) Non-insulin dependent type 2 diabetes mellitus Status: Chronic (8) Cardiomyopathy Status: Chronic Qualifiers: Qualified Codes: I25.5 - Ischemic cardiomyopathy (9) Discharge planning issues Assessment & Plan: 05/20: discussed with patient the prognosis of her medical conditions. Discussed need to consider hospice at discharge. Palliative care consult placed. JASON MILLARD MD May 20, 2021 20:31
[2021-05-21] VITALS (22 sets, daily range): BP systolic 113–149; BP diastolic 54–91
[2021-05-21 05:02] LABS: BASOPHILS % (AUTO) 0 % (0-10); MEAN CORPUSCULAR HEMOGLOBIN 26 pg (25-34); NEUTROPHILS % (AUTO) 80 % (42-75)
[2021-05-21 05:04] LABS: EOSINOPHILS # (AUTO) 0.1 10^3/uL (0.0-0.3); EOSINOPHILS % (AUTO) 1 % (0-10); HEMATOCRIT 29 % (35-52); LYMPHOCYTES # (AUTO) 0.6 10^3/uL (1.0-4.0); LYMPHOCYTES % (AUTO) 8 % (12-44); MEAN CORPUSCULAR HGB CONC 27 g/dL (32-36); MEAN CORPUSCULAR VOLUME 96 fL (80-99); MEAN PLATELET VOLUME 10.8 fL (9.0-12.2); MONOCYTES # (AUTO) 0.7 10^3/uL (0.0-1.0); MONOCYTES % (AUTO) 10 % (0-12); NEUTROPHILS # (AUTO) 5.6 10^3/uL (1.8-7.8); PLATELET COUNT 110 10^3/uL (130-400)
[2021-05-21 05:24] LABS: ALBUMIN 2.6 GM/DL (3.2-4.5); BILIRUBIN,TOTAL 0.3 MG/DL (0.1-1.0); CALCIUM 7.4 MG/DL (8.5-10.1); CREATININE SERUM 2.69 MG/DL (0.60-1.30); MAGNESIUM 1.8 MG/DL (1.6-2.4); POTASSIUM 5.1 MMOL/L (3.6-5.0); TOTAL PROTEIN 6.2 GM/DL (6.4-8.2)
[2021-05-21 06:01] LABS: EOSINOPHILS % (MANUAL) 1 %; LYMPHOCYTES % (MANUAL) 5 %; MONOCYTES % (MANUAL) 8 %; NEUTROPHILS % (MANUAL) 86 %
[2021-05-21 06:02] LABS: HYPOCHROMASIA SLIGHT
[2021-05-21] MEDS: POTASSIUM CL 10MEQ/50ML IVPB 50 ML IV SCH (06:33)
[2021-05-21] MEDS: KCL 20 MEQ TAB (K-DUR) PO SCH (06:34)
[2021-05-21] MEDS: MAGNESIUM 1 GM/100 ML IVPB 100 ML IV SCH (06:34)
[2021-05-21] MEDS: inSUlin ASPART (NovoLOG) 1 UNIT/0.01 ML (CHARGE PER UNIT) SC SCH ×5 (06:34→18:38)
[2021-05-21] MEDS: RT-ALBUTEROL SULF 2.5 MG/3 ML PRE-MIX VIAL INH SCH ×3 (07:03→14:33)
--- NOTE | 2021-05-21 08:11 | Occ Therapy Progress Note ---
Therapy Progress Note New OT orders received due to pt transferring to higher level of care. Pt on hold this AM per nursing staff due to pt not resting well last night and BiPAP being placed early this morning. Pt currently resting peacefully. OT will attempt OT evaluation again at next available time. SUZANNA POLK OT May 21, 2021 08:11
--- NOTE | 2021-05-21 08:31 | Cardiology Progress Note ---
Subjective Date Seen by Provider: May 21, 2021 Time Seen by Provider: 08:30 Subjective/Events-last exam Patient was seen at bedside, sleeping. Maintained on BiPAP Review of Systems General: Other (Unable to provide review of system) Focused Exam Lactate Level 05/19/21 05:55: Lactic Acid Level 0.60 Objective-Cardiology Exam Last Set of Vital Signs Vital Signs 05/20/21 05/21/21 05/21/21 20:00 06:00 07:03 Temp 36.8 Pulse 65 Resp 21 B/P (MAP) 125/65 (85) Pulse Ox 98 O2 Delivery NIV Bilevel O2 Flow Rate 30.00 I&O Intake and Output 05/21/21 00:00 Intake Total 2880 ml Output Total 257 ml Balance 2623 ml Intake Oral 1580 ml IV Total 1300 ml Output Urine Total 257 ml General: Other (Maintained on BiPAP) HEENT: Atraumatic Neck: Supple, No Thyromegaly Lungs: Other (diminished breath sounds, increased work of breathing with minimal activity) Heart: Regular Rate, Normal S1, Normal S2 Abdomen: Other (anasarca up to breasts bilaterally) Extremities: Other (3+ pitting edema) Skin: No Rashes, No Breakdown, No Significant Lesion Neuro: Normal Speech Psych/Mental Status: Mental Status NL, Mood NL Results Lab Laboratory Tests 05/20/21 17:10 05/21/21 04:55 A/P-Cardiology Admission Diagnosis Congestive heart failure, acute on chronic left ventricular systolic dysfunction, ischemic cardiomyopathy Coronary artery disease Hypertension Hyperlipidemia Assessment/Plan Status post acute respiratory failure, CO2 narcosis, better today, back to nasal cannula. Patient has returned to baseline. Overall poor prognosis, followed and managed by primary care physician. Bradycardia, paroxysmal atrial fibrillation. First episode diagnosed in June 2019, has been maintained on Xarelto. Currently having episodes of bradycardia, probably due to respiratory failure. Has underlying history of sinus node dysfunction with long pauses, has been intolerant to beta-blockers in the past. Congestive heart failure, acute on chronic left ventricular systolic dysfunction, ischemic cardiomyopathy. Responded well to diuretics. Continue to monitor 2D echocardiogram was done showing ejection fraction 35 to 40%, segmental wall motion abnormality, left atrial dilatation, pulmonary artery pressure 40 mmHg. Intolerant to beta-blockers with sinus node dysfunction, had 2.4 seconds pause while on beta-blockers in July 2018 Coronary artery disease, history of Non-ST elevation myocardial infarction in May and June 2019 secondary to small vessel disease. Cardiac catheterization May 2019 showing mild ostial left main, mild ostial LAD, patent stent known to be 3 x 24 PARAMJIT placed in January 2018 in [place], mild to moderate diffuse calcification in the coronary system, right coronary artery is chronically occluded with collaterals from the left. Stress test done in July 2020 showing left bundle branch block, fixed defect involving the inferior wall, fixed defect at the base of the anterior wall with mild reversible ischemia at the anterior wall, Viability study in July 2020 showed viable myocardium involving the lateral, inferolateral and inferior wall Cardiac catheterization in August 2020 showing diffuse mild to moderate disease within the left coronary system without significant obstructive disease, patent stent in the proximal LAD, chronic total occlusion of the right coronary artery at the ostium with collateral filling the right from the left system. Peripheral arterial disease, extensive disease, had bilateral ostial SFA occlusion, had angiogram done in January [address] Merino Following for her peripheral arterial disease with Dr. Sanz Hypertension, restart home medication monitor blood pressure Hyperlipidemia, maintained on statin, monitor lipids Diabetes mellitus, followed and managed by primary care physician Chronic kidney disease stage III-IV, probably diabetic nephropathy, followed by primary care physician COPD, followed and managed by primary care physician Tobaccoism, educated on smoking cessation Questionable sleep apnea, maintained on oxygen at night GERMAN ALEJANDRE MD May 21, 2021 08:31
--- NOTE | 2021-05-21 09:49 | Physical Therapy Progress Note ---
Therapy Progress Note Patient on Hold per RN due to increase O2 demand and lethargy. Will attempt in LARY Valenzuela PT May 21, 2021 09:49
[2021-05-21] MEDS: lisINopril 20 MG (PRINIVIL) TABLET PO SCH (10:07)
[2021-05-21] MEDS: LEVOTHYROXINE 112 MCG (LEVOTHROID) TAB PO SCH (10:07)
[2021-05-21] MEDS: HYPOCHLOROUS ACID/NaCl (VASHE) 250 ML IR SCH (10:08)
[2021-05-21] MEDS: SERTRALINE 100 MG (ZOLOFT) TAB PO SCH (10:08)
[2021-05-21] MEDS: ISOSORBIDE MONONITRATE 60 MG (IMDUR) TAB PO SCH (10:08)
[2021-05-21] MEDS: ASPIRIN E.C. 81 MG (ECOTRIN) TAB PO SCH (10:08)
[2021-05-21] MEDS: GABAPENTIN 300 MG (NEURONTIN) CAP PO SCH (10:08)
[2021-05-21] MEDS: MICONAZOLE 2% POWDER (DESENEX AF) 90 GM TOP SCH (10:08)
[2021-05-21] MEDS: DOCUSATE SODIUM 100 MG (COLACE) CAP PO SCH (10:09)
[2021-05-21] MEDS: LEVOTHYROXINE 25 MCG (LEVOTHROID) TAB PO SCH (10:14)
[2021-05-21] MEDS: NS IV 1000 ML 1,000 ML IV SCH (10:56)
--- NOTE | 2021-05-21 11:26 | Discharge Summary ---
Diagnosis/Chief Complaint Date of Admission May 15, 2021 at 18:07 Date of Discharge Discharge Diagnosis Problems/Diagnosis: (1) Acute and chronic respiratory failure with hypoxia Assessment & Plan: 05/20: Bipap dependent at night, Will need continuous oxygen at d/c Status: Acute (2) Acute on chronic combined systolic and diastolic congestive heart failure Assessment & Plan: 05/20: Cardiology consulted and managing Status: Acute (3) Acute kidney injury superimposed on chronic kidney disease Assessment & Plan: 05/20: Cr continues to increase, patient is 3rd spacing and has severe anasarca up to breasts Status: Acute (4) Anasarca Status: Acute (5) Primary hypertension Assessment & Plan: 05/20: Continue home meds Status: Chronic (6) Coronary artery disease without angina pectoris Status: Chronic (7) Non-insulin dependent type 2 diabetes mellitus Status: Chronic (8) Cardiomyopathy Qualifiers: Qualified Codes: I25.5 - Ischemic cardiomyopathy Status: Chronic (9) Discharge planning issues Assessment & Plan: 05/20: discussed with patient the prognosis of her medical conditions. Discussed need to consider hospice at discharge. Palliative care consult placed. Discharge Summary-Simple/Stand Consultations Discharge Physical Examination Allergies: Uncoded Allergies: Beta bernard (Adverse Reaction, Unknown, 2.4 second pause (07/2018), 05/16/19) Vitals & I&Os Vital Sign - Last 12Hours Date Time Temp Pulse Resp B/P (MAP) Pulse Ox O2 Delivery O2 Flow Rate FiO2 05/21/21 10:00 High Flow N/C 10.00 05/21/21 09:00 69 23 128/60 (82) 99 05/21/21 04:00 30 05/20/21 20:00 36.8 Intake and Output 05/21/21 00:00 Intake Total 1500 ml Output Total 77 ml Balance 1423 ml Hospital Course See final discharge diagnosis. Discharge Instructions to patient/family Please see electronic discharge instructions given to patient. Discharge Medications Reviewed and agree with Discharge Medication list on patient's Discharge Instruction sheet JASON MILLARD MD May 21, 2021 11:26
[2021-05-21] MEDS ORDERED: MORP100S7 PO (11:35)
[2021-05-21] MEDS ORDERED: LORA2ORA PO (11:35)
--- NOTE | 2021-05-21 11:37 | Discharge Summary ---
Discharge [facility] Reconcile Patient Problems Problems Reviewed?: Yes Discharge Medications New, Converted or Re-Newed RX: Transmitted to Pharmacy New Medications: Lorazepam (Lorazepam Intensol) 2 Mg/1 Ml Oral.conc 2 MG PO Q2H PRN for AGITATION, #30 ML Morphine Sulfate (Morphine Conc. 20mg/ml) 100 Mg/5 Ml Solution 10 MG PO Q2H PRN for PAIN for 7 Days, #30 ML Continued Medications: Albuterol Sulfate (Proair Hfa) 1 Puff Puff 2 PUFF IH Q4H PRN for SHORTNESS OF BREATH, EA Aspirin (Aspirin EC) 81 Mg Tablet.dr 81 MG PO DAILY, TAB Furosemide (Furosemide) 40 Mg Tablet 40 MG PO DAILY, TAB Gabapentin (Neurontin) 300 Mg Capsule 300 MG PO DAILY, CAP Gabapentin (Neurontin) 300 Mg Capsule 600 MG PO HS, CAP TAKES 2 (300MG) CAPS Insulin Glargine,Hum.rec.anlog (Lantus Solostar) 100 Unit/1 Ml Insuln.pen 20 UNITS SQ BID, EA Isosorbide Mononitrate (Isosorbide Mononitrate ER) 60 Mg Tab 60 MG PO DAILY, TAB Levothyroxine Sodium (Levothyroxine Sodium) 137 Mcg Tablet 137 MCG PO DAILY, TAB Nitroglycerin (Nitroglycerin) 0.4 Mg Tab.subl 0.4 MG SL UD PRN for CHEST PAIN, TAB Rivaroxaban (Xarelto) 20 Mg Tablet 20 MG PO DAILY, TAB Sertraline HCl (Sertraline HCl) 100 Mg Tablet 100 MG PO DAILY, TAB Discontinued Medications: Atorvastatin Calcium (Atorvastatin Calcium) 40 Mg Tablet 40 MG PO HS, TAB Insulin Aspart (Novolog Flexpen) 300 Units/3 Ml Solution 20 UNITS SQ BID, EA Lisinopril/Hydrochlorothiazide (Zestoretic 20-12.5 mg Tablet) 1 Each Tablet 1 EACH PO DAILY, TAB Patient Instructions Goal/Follow Up Appt: [facility] to see patient Activity & Diet Discharge Diet: No Restrictions Activity as Tolerated: Yes Orders-Post D/C & Referrals [facility] JASON MILLARD MD May 21, 2021 11:37
[2021-05-21] MEDS: cefTRIAXone 1 GM PRE-MIX 50 ML IV SCH (12:49)
[2021-05-21] MEDS: RIVAROXABAN 20 MG TABLET (XARELTO) PO SCH (18:37)
== END 2021-05-21 18:30 | disposition hospice, home (50) | DRG 291 ==
LOC: EDUNIT# 15:06 → ER FS 15:07 → 4TH 18:07 → ICU 05-19 08:03
PROVIDERS: ADMIT Internal Medicine; ATTEND Family Medicine
PROC: 5A09357 Assistance with Respiratory Ventilation, Less than 24 Consecutive Hours, Continuous Positive Airway Pressure (ICD-10-PCS; principal; 2021-05-19)
DX: I13.0 Hypertensive heart and chronic kidney disease with heart failure and stage 1 through stage 4 chronic kidney disease, or unspecified chronic kidney disease (principal); I50.23 Acute on chronic systolic (congestive) heart failure; J96.01 Acute respiratory failure with hypoxia; J96.02 Acute respiratory failure with hypercapnia; N18.4 Chronic kidney disease, stage 4 (severe); E46 Unspecified protein-calorie malnutrition; L97.829 Non-pressure chronic ulcer of other part of left lower leg with unspecified severity; L97.819 Non-pressure chronic ulcer of other part of right lower leg with unspecified severity; Z79.4 Long term (current) use of insulin; Z79.899 Other long term (current) drug therapy; F17.210 Nicotine dependence, cigarettes, uncomplicated; J44.9 Chronic obstructive pulmonary disease, unspecified; I25.10 Atherosclerotic heart disease of native coronary artery without angina pectoris; Z95.5 Presence of coronary angioplasty implant and graft; I25.2 Old myocardial infarction; E78.00 Pure hypercholesterolemia, unspecified; E11.51 Type 2 diabetes mellitus with diabetic peripheral angiopathy without gangrene; K21.9 Gastro-esophageal reflux disease without esophagitis; E03.9 Hypothyroidism, unspecified; I25.5 Ischemic cardiomyopathy; G47.33 Obstructive sleep apnea (adult) (pediatric); Z91.14 Patient's other noncompliance with medication regimen; I48.0 Paroxysmal atrial fibrillation
CPT/HCPCS: 36415; 36600; 70450; 71045; 80048; 80053; 81000; 82140; 82805; 82947; 83605; 83735; 83880; 84145; 84484; 85007; 85025; 85027; 85610; 85730; 87040; 87070; 87077; 87186; 87205; 93005; 93308; 94640; 94660; 94664; 94760